=== PATIENT | female | born 1955 | race Caucasian/White ===

== ENCOUNTER → 2020-05-07 20:39 | Outpatient (REF) | payer MEDICARE, MEDICAID, OTHER, SELFPAY | LOC: HO.SL 20:39 | PROVIDERS: Visit Provider Psychiatry & Neurology Neurology | DX: G47.33 Obstructive sleep apnea (adult) (pediatric) (principal); G25.81 Restless legs syndrome; R06.83 Snoring; R41.89 Other symptoms and signs involving cognitive functions and awareness; I63.9 Cerebral infarction, unspecified; M47.892 Other spondylosis, cervical region; Z99.89 Dependence on other enabling machines and devices | CPT/HCPCS: 85610; 95810 ==

== ENCOUNTER → 2020-05-28 08:52 | Outpatient (BNVA) | payer MEDICARE, MEDICAID, OTHER, SELFPAY | PROVIDERS: PCP Internal Medicine; Visit Provider Internal Medicine | DX: Z86.73 Personal history of transient ischemic attack (TIA), and cerebral infarction without residual deficits (principal); Z51.81 Encounter for therapeutic drug level monitoring; Z79.01 Long term (current) use of anticoagulants | CPT/HCPCS: 85610; 99211 ==

== ENCOUNTER → 2020-06-18 09:07 | Outpatient (BNVA) | payer MEDICARE, MEDICAID, OTHER, SELFPAY | PROVIDERS: PCP Internal Medicine; Visit Provider Internal Medicine | DX: Z86.73 Personal history of transient ischemic attack (TIA), and cerebral infarction without residual deficits (principal); Z51.81 Encounter for therapeutic drug level monitoring; Z79.01 Long term (current) use of anticoagulants | CPT/HCPCS: 85610; 99211 ==

== ENCOUNTER → 2020-07-02 10:49 | Outpatient (BNVA) | payer MEDICARE, MEDICAID, OTHER, SELFPAY | PROVIDERS: PCP Internal Medicine; Visit Provider Internal Medicine | DX: Z86.73 Personal history of transient ischemic attack (TIA), and cerebral infarction without residual deficits (principal); Z51.81 Encounter for therapeutic drug level monitoring; Z79.01 Long term (current) use of anticoagulants | CPT/HCPCS: 85610; 99211 ==

== ENCOUNTER 2020-07-21 07:20 | Outpatient (REF) | payer MEDICARE, MEDICAID, OTHER, SELFPAY | END 2020-07-21 07:21 | disposition home or self-care (01) | LOC: HO.LAB 07:20 | PROVIDERS: Visit Provider Internal Medicine | DX: Z20.822 Contact with and (suspected) exposure to COVID-19 (principal) | CPT/HCPCS: 36415; C9803; Q3014; U0003 ==

== ENCOUNTER → 2020-07-22 08:42 | Outpatient (BNVA) | payer MEDICARE, MEDICAID, OTHER, SELFPAY | PROVIDERS: PCP Internal Medicine; Visit Provider Internal Medicine | DX: Z86.73 Personal history of transient ischemic attack (TIA), and cerebral infarction without residual deficits (principal); Z51.81 Encounter for therapeutic drug level monitoring; Z79.01 Long term (current) use of anticoagulants | CPT/HCPCS: 85610; 99211 ==

== ENCOUNTER → 2020-07-30 08:41 | Outpatient (BNVA) | payer MEDICARE, MEDICAID, OTHER, SELFPAY | PROVIDERS: PCP Internal Medicine; Visit Provider Internal Medicine | DX: Z86.73 Personal history of transient ischemic attack (TIA), and cerebral infarction without residual deficits (principal); Z79.01 Long term (current) use of anticoagulants; Z51.81 Encounter for therapeutic drug level monitoring | CPT/HCPCS: 85610; 99211 ==

== ENCOUNTER → 2020-08-20 08:39 | Outpatient (BNVA) | payer MEDICARE, MEDICAID, OTHER, SELFPAY | PROVIDERS: PCP Internal Medicine; Visit Provider Internal Medicine | DX: Z86.73 Personal history of transient ischemic attack (TIA), and cerebral infarction without residual deficits (principal); Z51.81 Encounter for therapeutic drug level monitoring; Z79.01 Long term (current) use of anticoagulants | CPT/HCPCS: 85610; 99211 ==

== ENCOUNTER → 2020-09-16 08:44 | Outpatient (BNVA) | payer MEDICARE, MEDICAID, SELFPAY | PROVIDERS: PCP Internal Medicine; Visit Provider Internal Medicine | DX: Z86.73 Personal history of transient ischemic attack (TIA), and cerebral infarction without residual deficits (principal); Z51.81 Encounter for therapeutic drug level monitoring; Z79.01 Long term (current) use of anticoagulants | CPT/HCPCS: 85610; 99211 ==

== ENCOUNTER → 2020-10-14 08:55 | Outpatient (BNVA) | payer MEDICARE, MEDICAID, SELFPAY | PROVIDERS: PCP Internal Medicine; Visit Provider Internal Medicine | DX: Z86.73 Personal history of transient ischemic attack (TIA), and cerebral infarction without residual deficits (principal); Z51.81 Encounter for therapeutic drug level monitoring; Z79.01 Long term (current) use of anticoagulants | CPT/HCPCS: 85610; 99211 ==

== ENCOUNTER → 2020-11-11 08:50 | Outpatient (BNVA) | payer MEDICARE, MEDICAID, SELFPAY | PROVIDERS: PCP Internal Medicine; Visit Provider Internal Medicine | DX: Z86.73 Personal history of transient ischemic attack (TIA), and cerebral infarction without residual deficits (principal); Z51.81 Encounter for therapeutic drug level monitoring; Z79.01 Long term (current) use of anticoagulants | CPT/HCPCS: 85610; 99211 ==

== ENCOUNTER 2020-11-13 08:49 | Outpatient (REF) | payer MEDICARE, MEDICAID, OTHER, SELFPAY ==
--- NOTE | ~2020-11-13 | MM_ITS ---
EXAMINATION: MM SCREENING DIGITAL BREAST TOMOSYNTHESIS, BILATERAL CLINICAL INFORMATION: Screening. Asymptomatic. The lifetime risk of breast cancer based on the Tyrer-Cuzick Model is 11%. COMPARISON: Mammography: 10/05/2019, 08/17/2018, 07/15/2017 TECHNIQUE: Digital breast tomosynthesis is performed in both the craniocaudal and mediolateral oblique views along with computer-aided detection (CAD). Synthesized 2D images are generated from the tomosynthesis. FINDINGS: There are scattered areas of fibroglandular density (ACR BI-RADS breast composition Category b). There are no significant masses, abnormal calcifications, or other abnormalities. There is a cardiac loop recorder monitoring device overlying the medial left breast. Intramammary node again seen mid outer right breast. The bilateral axilla and skin contours are unremarkable. MM/MM tomosynthesis screening BI IMPRESSION: No mammographic evidence of malignancy. ASSESSMENT: BI-RADS 2: Benign RECOMMENDATION: Routine annual mammography screening. This patient's information was entered into a reminder system with a target due date for their next mammogram.
== END 2020-11-13 08:50 | disposition home or self-care (01) ==
LOC: HO.MAMMO 08:49
PROVIDERS: Visit Provider Internal Medicine
DX: Z12.31 Encounter for screening mammogram for malignant neoplasm of breast (principal)
CPT/HCPCS: 77063; 77067

== ENCOUNTER → 2020-12-10 09:29 | Outpatient (BNVA) | payer MEDICARE, MEDICAID, OTHER, SELFPAY | PROVIDERS: PCP Internal Medicine; Visit Provider Internal Medicine | DX: Z86.73 Personal history of transient ischemic attack (TIA), and cerebral infarction without residual deficits (principal); Z51.81 Encounter for therapeutic drug level monitoring; Z79.01 Long term (current) use of anticoagulants | CPT/HCPCS: 85610; 99211 ==

== ENCOUNTER → 2020-12-16 13:34 | Outpatient (BNVA) | payer MEDICARE, MEDICAID, OTHER, SELFPAY | PROVIDERS: PCP Internal Medicine; Visit Provider Internal Medicine Cardiovascular Disease | DX: Z45.09 Encounter for adjustment and management of other cardiac device (principal); R00.0 Tachycardia, unspecified; I10 Essential (primary) hypertension | CPT/HCPCS: 93005; 99212 ==

== ENCOUNTER → 2020-12-24 09:08 | Outpatient (BNVA) | payer MEDICARE, MEDICAID, OTHER, SELFPAY | PROVIDERS: PCP Internal Medicine; Visit Provider Internal Medicine | DX: Z86.73 Personal history of transient ischemic attack (TIA), and cerebral infarction without residual deficits (principal); Z51.81 Encounter for therapeutic drug level monitoring; Z79.01 Long term (current) use of anticoagulants | CPT/HCPCS: 85610; 99211 ==

== ENCOUNTER → 2021-01-01 09:05 | Outpatient (BNVA) | payer MEDICARE, OTHER, SELFPAY | PROVIDERS: PCP Internal Medicine; Visit Provider Internal Medicine | DX: Z86.73 Personal history of transient ischemic attack (TIA), and cerebral infarction without residual deficits (principal); Z51.81 Encounter for therapeutic drug level monitoring; Z79.01 Long term (current) use of anticoagulants | CPT/HCPCS: 85610; 99211 ==

== ENCOUNTER → 2021-01-08 09:13 | Outpatient (BNVA) | payer MEDICARE, OTHER, SELFPAY | PROVIDERS: PCP Internal Medicine; Visit Provider Internal Medicine | DX: Z86.73 Personal history of transient ischemic attack (TIA), and cerebral infarction without residual deficits (principal); Z51.81 Encounter for therapeutic drug level monitoring; Z79.01 Long term (current) use of anticoagulants | CPT/HCPCS: 85610; 99211 ==

== ENCOUNTER → 2021-01-14 08:54 | Outpatient (BNVA) | payer MEDICARE, OTHER, SELFPAY | PROVIDERS: PCP Internal Medicine; Visit Provider Internal Medicine | DX: Z86.73 Personal history of transient ischemic attack (TIA), and cerebral infarction without residual deficits (principal); Z51.81 Encounter for therapeutic drug level monitoring; Z79.01 Long term (current) use of anticoagulants | CPT/HCPCS: 85610; 99211 ==

== ENCOUNTER → 2021-01-15 13:32 | Outpatient (BNVA) | payer MEDICARE, OTHER, SELFPAY | PROVIDERS: PCP Internal Medicine; Visit Provider Internal Medicine Cardiovascular Disease | DX: Z45.09 Encounter for adjustment and management of other cardiac device (principal); R00.0 Tachycardia, unspecified; Q21.1 Atrial septal defect; I10 Essential (primary) hypertension | CPT/HCPCS: 99212 ==

== ENCOUNTER → 2021-01-22 09:04 | Outpatient (BNVA) | payer MEDICARE, OTHER, SELFPAY | PROVIDERS: PCP Internal Medicine; Visit Provider Internal Medicine | DX: Z86.73 Personal history of transient ischemic attack (TIA), and cerebral infarction without residual deficits (principal); Z51.81 Encounter for therapeutic drug level monitoring; Z79.01 Long term (current) use of anticoagulants | CPT/HCPCS: 85610; 99211 ==

== ENCOUNTER → 2021-01-29 08:59 | Outpatient (BNVA) | payer MEDICARE, OTHER, SELFPAY | PROVIDERS: PCP Internal Medicine; Visit Provider Internal Medicine | DX: Z86.73 Personal history of transient ischemic attack (TIA), and cerebral infarction without residual deficits (principal); Z51.81 Encounter for therapeutic drug level monitoring; Z79.01 Long term (current) use of anticoagulants | CPT/HCPCS: 85610; 99211 ==

== ENCOUNTER → 2021-02-12 09:04 | Outpatient (BNVA) | payer MEDICARE, OTHER, SELFPAY | PROVIDERS: PCP Internal Medicine; Visit Provider Internal Medicine | DX: Z86.73 Personal history of transient ischemic attack (TIA), and cerebral infarction without residual deficits (principal); Z51.81 Encounter for therapeutic drug level monitoring; Z79.01 Long term (current) use of anticoagulants | CPT/HCPCS: 85610; 99212 ==

== ENCOUNTER → 2021-02-19 08:54 | Outpatient (BNVA) | payer MEDICARE, OTHER, SELFPAY | PROVIDERS: PCP Internal Medicine; Visit Provider Internal Medicine | DX: Z86.73 Personal history of transient ischemic attack (TIA), and cerebral infarction without residual deficits (principal); Z51.81 Encounter for therapeutic drug level monitoring; Z79.01 Long term (current) use of anticoagulants | CPT/HCPCS: 85610; 99211 ==

== ENCOUNTER → 2021-02-26 09:27 | Outpatient (BNVA) | payer MEDICARE, OTHER, SELFPAY | PROVIDERS: PCP Internal Medicine; Visit Provider Internal Medicine | DX: Z86.73 Personal history of transient ischemic attack (TIA), and cerebral infarction without residual deficits (principal); Z51.81 Encounter for therapeutic drug level monitoring; Z79.01 Long term (current) use of anticoagulants | CPT/HCPCS: 85610; 99211 ==

== ENCOUNTER → 2021-03-09 08:53 | Outpatient (REF) | payer MEDICARE, OTHER, SELFPAY | LOC: HO.SL 08:53 | PROVIDERS: PCP Internal Medicine; Visit Provider Nurse Practitioner Family | DX: G47.10 Hypersomnia, unspecified (principal); I45.5 Other specified heart block | CPT/HCPCS: 95806 ==

== ENCOUNTER → 2021-03-10 09:18 | Outpatient (BNVA) | payer MEDICARE, OTHER, SELFPAY | PROVIDERS: PCP Internal Medicine; Visit Provider Internal Medicine | DX: Z86.73 Personal history of transient ischemic attack (TIA), and cerebral infarction without residual deficits (principal); Z51.81 Encounter for therapeutic drug level monitoring; Z79.01 Long term (current) use of anticoagulants | CPT/HCPCS: 85610; 99211 ==

== ENCOUNTER → 2021-03-24 09:02 | Outpatient (BNVA) | payer MEDICARE, OTHER, SELFPAY | PROVIDERS: PCP Internal Medicine; Visit Provider Internal Medicine | DX: Z86.73 Personal history of transient ischemic attack (TIA), and cerebral infarction without residual deficits (principal); Z51.81 Encounter for therapeutic drug level monitoring; Z79.01 Long term (current) use of anticoagulants | CPT/HCPCS: 85610; 99211 ==

== ENCOUNTER → 2021-03-31 09:36 | Outpatient (BNVA) | payer MEDICARE, OTHER, SELFPAY | PROVIDERS: PCP Internal Medicine; Visit Provider Internal Medicine | DX: Z86.73 Personal history of transient ischemic attack (TIA), and cerebral infarction without residual deficits (principal); Z51.81 Encounter for therapeutic drug level monitoring; Z79.01 Long term (current) use of anticoagulants | CPT/HCPCS: 85610; 99211 ==

== ENCOUNTER → 2021-04-14 09:07 | Outpatient (BNVA) | payer MEDICARE, OTHER, SELFPAY | PROVIDERS: PCP Internal Medicine; Visit Provider Internal Medicine | DX: Z86.73 Personal history of transient ischemic attack (TIA), and cerebral infarction without residual deficits (principal); Z51.81 Encounter for therapeutic drug level monitoring; Z79.01 Long term (current) use of anticoagulants | CPT/HCPCS: 85610; 99211 ==

== ENCOUNTER → 2021-04-15 09:01 | Outpatient (BNVA) | payer MEDICARE, OTHER, SELFPAY | PROVIDERS: PCP Internal Medicine; Referring Provider Internal Medicine; Visit Provider Internal Medicine Cardiovascular Disease | DX: Z45.09 Encounter for adjustment and management of other cardiac device (principal); I45.5 Other specified heart block; Q21.1 Atrial septal defect; R00.0 Tachycardia, unspecified | CPT/HCPCS: 93005; 99212 ==

== ENCOUNTER → 2021-04-21 13:23 | Outpatient (BNVA) | payer MEDICARE, OTHER, SELFPAY | PROVIDERS: PCP Internal Medicine; Visit Provider Internal Medicine | DX: Z86.73 Personal history of transient ischemic attack (TIA), and cerebral infarction without residual deficits (principal); Z51.81 Encounter for therapeutic drug level monitoring; Z79.01 Long term (current) use of anticoagulants | CPT/HCPCS: 85610; 99211 ==

== ENCOUNTER 2021-04-29 08:42 | Outpatient (REF) | payer MEDICARE, OTHER, SELFPAY ==
--- NOTE | ~2021-04-29 | XR_ITS ---
EXAMINATION: XR CHEST CLINICAL INFORMATION: Cough. COMPARISON: Most recent chest radiograph dated 11/19/2019. TECHNIQUE: 2 views of the chest were obtained. FINDINGS: No focal airspace consolidation. No pleural effusion or pneumothorax. Stable cardiomediastinal silhouette. Loop recorder in the left chest wall. Right upper quadrant surgical clips. XR/XR chest 2V IMPRESSION: No acute cardiopulmonary findings.
== END 2021-04-29 08:43 | disposition home or self-care (01) ==
LOC: HO.XRAY 08:42
PROVIDERS: PCP Internal Medicine; Visit Provider Internal Medicine
DX: R61 Generalized hyperhidrosis (principal); R05.9 Cough, unspecified
CPT/HCPCS: 71046

== ENCOUNTER → 2021-05-01 09:40 | Outpatient (BNVA) | payer MEDICARE, OTHER, SELFPAY | PROVIDERS: PCP Internal Medicine; Visit Provider Internal Medicine | DX: Z86.73 Personal history of transient ischemic attack (TIA), and cerebral infarction without residual deficits (principal); Z51.81 Encounter for therapeutic drug level monitoring; Z79.01 Long term (current) use of anticoagulants | CPT/HCPCS: 85610; 99211 ==

== ENCOUNTER → 2021-05-14 09:12 | Outpatient (BNVA) | payer MEDICARE, OTHER, SELFPAY | PROVIDERS: PCP Internal Medicine; Visit Provider Internal Medicine | DX: Z86.73 Personal history of transient ischemic attack (TIA), and cerebral infarction without residual deficits (principal); Z51.81 Encounter for therapeutic drug level monitoring; Z79.01 Long term (current) use of anticoagulants | CPT/HCPCS: 85610; 99211 ==

== ENCOUNTER → 2021-05-20 08:29 | Outpatient (BNVA) | payer MEDICARE, OTHER, SELFPAY | PROVIDERS: PCP Internal Medicine; Visit Provider Internal Medicine | DX: Z86.73 Personal history of transient ischemic attack (TIA), and cerebral infarction without residual deficits (principal); Z51.81 Encounter for therapeutic drug level monitoring; Z79.01 Long term (current) use of anticoagulants | CPT/HCPCS: 85610; 99211 ==

== ENCOUNTER → 2021-05-25 08:24 | Outpatient (BNVA) | payer MEDICARE, OTHER, SELFPAY | PROVIDERS: PCP Internal Medicine; Visit Provider Internal Medicine | DX: Z86.73 Personal history of transient ischemic attack (TIA), and cerebral infarction without residual deficits (principal); Z51.81 Encounter for therapeutic drug level monitoring; Z79.01 Long term (current) use of anticoagulants | CPT/HCPCS: 85610; 99211 ==

== ENCOUNTER → 2021-06-15 13:54 | Outpatient (BNVA) | payer MEDICARE, OTHER, SELFPAY | PROVIDERS: PCP Internal Medicine; Visit Provider Internal Medicine | DX: Z86.73 Personal history of transient ischemic attack (TIA), and cerebral infarction without residual deficits (principal); Z51.81 Encounter for therapeutic drug level monitoring; Z79.01 Long term (current) use of anticoagulants | CPT/HCPCS: 85610; 99211 ==

== ENCOUNTER → 2021-06-26 14:18 | Outpatient (BNVA) | payer MEDICARE, OTHER, SELFPAY | PROVIDERS: PCP Internal Medicine; Referring Provider Internal Medicine; Visit Provider Nurse Practitioner Family | DX: I45.5 Other specified heart block (principal); I10 Essential (primary) hypertension; R42 Dizziness and giddiness; Z79.01 Long term (current) use of anticoagulants | CPT/HCPCS: 99212 ==

== ENCOUNTER → 2021-06-29 09:03 | Outpatient (BNVA) | payer MEDICARE, OTHER, SELFPAY | PROVIDERS: PCP Internal Medicine; Visit Provider Internal Medicine | DX: Z86.73 Personal history of transient ischemic attack (TIA), and cerebral infarction without residual deficits (principal); Z51.81 Encounter for therapeutic drug level monitoring; Z79.01 Long term (current) use of anticoagulants | CPT/HCPCS: 85610; 99211 ==

== ENCOUNTER → 2021-07-08 08:53 | Outpatient (BNVA) | payer MEDICARE, OTHER, SELFPAY | PROVIDERS: PCP Internal Medicine; Visit Provider Internal Medicine | DX: Z86.73 Personal history of transient ischemic attack (TIA), and cerebral infarction without residual deficits (principal); Z51.81 Encounter for therapeutic drug level monitoring; Z79.01 Long term (current) use of anticoagulants | CPT/HCPCS: 85610; 99211 ==

== ENCOUNTER → 2021-07-21 12:24 | Outpatient (BNVA) | payer MEDICARE, OTHER, SELFPAY | PROVIDERS: PCP Internal Medicine; Referring Provider Internal Medicine; Visit Provider Internal Medicine Cardiovascular Disease | DX: I45.5 Other specified heart block (principal); Q21.1 Atrial septal defect; R00.0 Tachycardia, unspecified | CPT/HCPCS: 99212 ==

== ENCOUNTER → 2021-07-22 09:08 | Outpatient (BNVA) | payer MEDICARE, OTHER, SELFPAY | PROVIDERS: PCP Internal Medicine; Visit Provider Internal Medicine | DX: Z86.73 Personal history of transient ischemic attack (TIA), and cerebral infarction without residual deficits (principal); Z51.81 Encounter for therapeutic drug level monitoring; Z79.01 Long term (current) use of anticoagulants | CPT/HCPCS: 85610; 99211 ==

== ENCOUNTER 2021-07-23 05:57 | Outpatient (REF) | payer MEDICARE, OTHER, SELFPAY ==
[2021-07-23 06:28] LABS: MANUAL DIFF FLAG NO
[2021-07-23 07:12] LABS: Basophils Percent Auto 0.4 % (0-2); Eosinophils Absolute Auto 0.1 X10*3/uL (0.0-0.4); Eosinophils Percent Auto 1.6 % (0-4); Hematocrit 39.9 % (37.0-47.0); Hemoglobin 13.2 g/dl (12.0-16.0); Imm Gran Abs Auto 0.02 X10*3/uL (0.00-0.03); Imm Gran Pct Auto 0.2 % (0.0-0.4); Lymphocytes Absolute Auto 3.4 X10*3/uL (1.2-4.9); Lymphocytes Percent Auto 42.7 % (20-40); Mean Corpuscular HGB Conc 33.1 g/dl (31.0-35.0); Mean Corpuscular Volume 93.7 fL (80.0-98.0); Mean Platelet Volume 9.2 fL (9.4-12.3); Monocytes Absolute Auto 0.7 X10*3/uL (0.1-1.2); Monocytes Percent Auto 9.2 % (2-11); Neutrophils Absolute Auto 3.7 x10*3/uL (2.0-8.3); Neutrophils Percent Auto 45.9 % (45-73); Platelet Count 344 X10*3/uL (160-400); Red Blood Count 4.26 X10*6/uL (4.20-5.50); Red Cell Distribution Width 13.8 % (11.0-16.0)
[2021-07-23 07:28] LABS: Alanine Aminotransferase 14 U/L (0-31); Albumin Level 4.2 g/dL (3.5-5.0); Alkaline Phosphatase 80 U/L (39-117); Anion Gap 13 (12-20); Aspartate Amino Transferase 13 U/L (5-31); Bilirubin Total 0.3 mg/dL (0.0-1.0); Blood Urea Nitrogen 15 mg/dL (9-16); Calcium 10.1 mg/dL (8.4-10.2); Carbon Dioxide 27 mmol/L (22-29); Chloride 106 mmol/L (96-108); Cholesterol 188 mg/dL; Estimated Glomerular Filt Rate > 60; Glucose Fasting 169 mg/dL (60-99); HDL Cholesterol 77 mg/dL; LDL Cholesterol Calculated 89 mg/dl; Potassium 4.9 mmol/L (3.3-5.1); Sodium 141 mmol/L (135-145); Triglycerides 111 mg/dL
== END 2021-07-23 05:58 | disposition home or self-care (01) ==
LOC: HO.LAB 05:57
PROVIDERS: PCP Internal Medicine; Visit Provider Nurse Practitioner Family
DX: I45.5 Other specified heart block (principal); E78.5 Hyperlipidemia, unspecified
CPT/HCPCS: 36415; 80053; 80061; 85025

== ENCOUNTER → 2021-07-27 13:04 | Outpatient (BNVA) | payer MEDICARE, OTHER, SELFPAY | PROVIDERS: PCP Internal Medicine; Visit Provider Internal Medicine | DX: Z86.73 Personal history of transient ischemic attack (TIA), and cerebral infarction without residual deficits (principal); Z51.81 Encounter for therapeutic drug level monitoring; Z79.01 Long term (current) use of anticoagulants | CPT/HCPCS: 85610; 99212 ==

== ENCOUNTER 2021-08-05 15:38 | Observation (INO) | payer MEDICARE, OTHER, SELFPAY ==
--- NOTE | 2021-08-04 11:46 | P.CONAN_ITS ---
Documented by User: Bambi Diaz NP 08/04/21 11:51 HPI - Anesthesia Eval Consult details Narrative: 66yo F for Pacemaker Insertion, Dual,excision of a loop recorder Coumadin for h/o CVA (with PFO) - to bridge with lovenox PMFSH Active Problems Active Problems: All Active Problems (Updated 06/29/21 @ 16:58 by Jany Katz NP-C) Dizziness (Acute) Sinus pause (Acute) Hypersomnia (Acute) Sinus tachycardia (Acute) Hyperlipidemia (Acute) PFO (patent foramen ovale) (Acute) HTN (hypertension) (Acute) Current use of anticoagulant therapy (Acute) Past Medical History Medical History (Updated 08/05/21 @ 13:37 by Jossy Gupta MD) COPD (chronic obstructive pulmonary disease) CVA (cerebral vascular accident) HTN (hypertension) Hyperlipidemia PFO (patent foramen ovale) Family History Family History Mother Stroke Multiple sclerosis Diabetes Father CAD (coronary artery disease) Surgical History Surgical History H/O unilateral oophorectomy History of bladder surgery History of cystoscopy Hx of cholecystectomy Social History Social History Alcohol intake: never Patient Tobacco Use Status: Current everyday Tobacco user Tobacco use type: Smokeless Tobacco Cigarettes Per Day: 1 Years Smoked: 40 +/- Smoked in Last 30 Days: Yes e-Cigarette/Vaping Use: Currently Using Use of substances other than those prescribed or required for medical reasons: No Have you been hit, kicked, punched, or otherwise hurt by someone within the past year? If so, by whom?: No Are you DNR?: No Advance Directives: No Advance Directives Information Provided: Yes Recently lost weight without trying: Unsure Eating poorly because of decreased appetite: No Patient : No Meds Allergies Allergy/AdvReac Type Severity Reaction Status Date / Time vancomycin [VANCOMYCIN] Allergy Intermediate ITCHING/ELOY Verified 07/22/21 09:12 H From REGLAN Allergy Intermediate PANIC Uncoded 07/21/21 12:37 ATTACK Home Medications Medication Instructions Recorded Confirmed Last Taken Type albuterol sulfate 90 mcg/actuation INHALATION 07/02/20 07/27/21 Unknown History aerosol inhaler atorvastatin 40 mg tablet 40 mg PO DAILY 07/21/20 07/27/21 Unknown History magnesium oxide 400 mg (241.3 mg 400 mg PO DAILY 07/21/20 07/27/21 Unknown History magnesium) tablet pantoprazole 40 mg tablet,delayed 40 mg PO DAILY 07/21/20 07/27/21 Unknown History release pramipexole 1 mg tablet 100f2 mg PO BEDTIME 07/21/20 07/27/21 Unknown History aspirin 81 mg tablet,delayed 81 mg PO DAILY 12/16/20 07/27/21 08/04/21 History release (Adult Low Dose Aspirin) cholecalciferol (vitamin D3) 25 25 mcg PO DAILY 12/16/20 07/27/21 Unknown History mcg (1,000 unit) capsule albuterol sulfate 2.5 mg INHALATION Q8H PRN 01/14/21 07/27/21 Unknown History blood sugar diagnostic #10 ea 01/14/21 07/27/21 Unknown History lisinopril 2.5 mg tablet 2.5 mg PO DAILY 04/15/21 07/27/21 Unknown History oxcarbazepine 300 mg tablet 300 mg PO BID 05/20/21 07/27/21 Unknown History fluticasone furoate 200 1 inh INHALATION DAILY ea 07/21/21 07/27/21 Unknown History mcg-vilanterol 25 mcg/dose inhalation powder hydrocodone 5 mg-acetaminophen 325 tab PO PRN 07/21/21 07/27/21 Unknown History mg tablet [id number] tablet tab PO DAILY tab 07/21/21 07/27/21 Unknown History metformin 500 mg tablet,extended 1,000 mg PO BID tab 07/21/21 07/27/21 Unknown History release 24 hr roflumilast 500 mcg tablet 500 mcg PO DAILY 07/21/21 07/27/21 Unknown History (Daliresp) umeclidinium 62.5 mcg/actuation 1 inh INHALATION DAILY ea 07/21/21 07/27/21 Unknown History blister powder for inhalation Exam Exam Date and Time: August 04, 2021 1146 Pertinent Lab Results Pertinent Lab Results: Laboratory Tests 07/23/21 07/23/21 06:27 06:27 WBC 8.0 Hgb 13.2 Hct 39.9 Plt Count 344 Sodium 141 Potassium 4.9 Chloride 106 Carbon Dioxide 27 BUN 15 Creatinine 0.79 Narrative Narrative: EKG 07/2021 NSR @ 92 Cardiac Device Check 06/2021 Details: Remote implantable loop recorder report generated 06/30/2021.? In the last month patient has 1 episode of pause, has been seen in the office and is planned to undergo pacemaker placement.? Overall otherwise present the strip shows sinus rhythm.? Battery life is excellent Assessment and Plan Assessment Anesthesia Assessment: Chart Reviewed Documented by User: Jossy Gupta MD 08/05/21 13:39 PMFSH Active Problems Active Problems: All Active Problems (Updated 06/29/21 @ 16:58 by Jany Katz, TREATING AND PUMPING SUPERVISOR-C) Dizziness (Acute) Sinus pause (Acute) Hypersomnia (Acute) Sinus tachycardia (Acute) Hyperlipidemia (Acute) PFO (patent foramen ovale) (Acute) HTN (hypertension) (Acute) Current use of anticoagulant therapy (Acute). Lovenox bridge. Last dose 08/04/21 am Past Medical History Medical History (Updated 08/05/21 @ 13:37 by Jossy Gupta MD) COPD (chronic obstructive pulmonary disease) CVA (cerebral vascular accident) HTN (hypertension) Hyperlipidemia PFO (patent foramen ovale) Family History Family History Mother Stroke Multiple sclerosis Diabetes Father CAD (coronary artery disease) Pertinent family history: h Family history of problems with anesthesia: No Surgical History Surgical History H/O unilateral oophorectomy History of bladder surgery History of cystoscopy Hx of cholecystectomy History of Problems with Anesthesia: No Social History Social History Alcohol intake: never Patient Tobacco Use Status: Current everyday Tobacco user Tobacco use type: Smokeless Tobacco Cigarettes Per Day: 1 Years Smoked: 40 +/- Smoked in Last 30 Days: Yes e-Cigarette/Vaping Use: Currently Using Use of substances other than those prescribed or required for medical reasons: No Have you been hit, kicked, punched, or otherwise hurt by someone within the past year? If so, by whom?: No Are you DNR?: No Advance Directives: No Advance Directives Information Provided: Yes Recently lost weight without trying: Unsure Eating poorly because of decreased appetite: No Patient : No Meds Allergies Allergy/AdvReac Type Severity Reaction Status Date / Time vancomycin [VANCOMYCIN] Allergy Intermediate ITCHING/ELOY Verified 07/22/21 09:12 H From REGLAN Allergy Intermediate PANIC Uncoded 07/21/21 12:37 ATTACK Home Medications Medication Instructions Recorded Confirmed Last Taken Type albuterol sulfate 90 mcg/actuation INHALATION 07/02/20 07/27/21 Unknown History aerosol inhaler atorvastatin 40 mg tablet 40 mg PO DAILY 07/21/20 07/27/21 Unknown History magnesium oxide 400 mg (241.3 mg 400 mg PO DAILY 07/21/20 07/27/21 Unknown History magnesium) tablet pantoprazole 40 mg tablet,delayed 40 mg PO DAILY 07/21/20 07/27/21 Unknown History release pramipexole 1 mg tablet 100f2 mg PO BEDTIME 07/21/20 07/27/21 Unknown History aspirin 81 mg tablet,delayed 81 mg PO DAILY 12/16/20 07/27/21 08/04/21 History release (Adult Low Dose Aspirin) cholecalciferol (vitamin D3) 25 25 mcg PO DAILY 12/16/20 07/27/21 Unknown History mcg (1,000 unit) capsule albuterol sulfate 2.5 mg INHALATION Q8H PRN 01/14/21 07/27/21 Unknown History blood sugar diagnostic #10 ea 01/14/21 07/27/21 Unknown History lisinopril 2.5 mg tablet 2.5 mg PO DAILY 04/15/21 07/27/21 Unknown History oxcarbazepine 300 mg tablet 300 mg PO BID 05/20/21 07/27/21 Unknown History fluticasone furoate 200 1 inh INHALATION DAILY ea 07/21/21 07/27/21 Unknown History mcg-vilanterol 25 mcg/dose inhalation powder hydrocodone 5 mg-acetaminophen 325 tab PO PRN 07/21/21 07/27/21 Unknown History mg tablet [id number] tablet tab PO DAILY tab 07/21/21 07/27/21 Unknown History metformin 500 mg tablet,extended 1,000 mg PO BID tab 07/21/21 07/27/21 Unknown History release 24 hr roflumilast 500 mcg tablet 500 mcg PO DAILY 07/21/21 07/27/21 Unknown History (Daliresp) umeclidinium 62.5 mcg/actuation 1 inh INHALATION DAILY ea 07/21/21 07/27/21 Unknown History blister powder for inhalation Exam Height,Weight and Vital Signs: Height 5 ft Weight 59.421 kg Vital Signs Temp Pulse Resp BP Pulse Ox 08/05/21 12:42 99 22 H 08/05/21 12:23 97.4 F 102 H 20 143/47 H 97 Pertinent Lab Results Pertinent Lab Results: Laboratory Tests 07/23/21 07/23/21 06:27 06:27 WBC 8.0 Hgb 13.2 Hct 39.9 Plt Count 344 Sodium 141 Potassium 4.9 Chloride 106 Carbon Dioxide 27 BUN 15 Creatinine 0.79 Lab Results 08/05/21 08/05/21 08/05/21 Range/Units 12:12 12:17 12:34 PT 10.6 (9.9-13.0) SEC INR 0.9 (0.9-1.1) POC Glucose 126 H (60-115) mg/dL COVID-19 (MISTY) Negative (Negative) COVID-19 Clin Com See Note Airway Mallampati Class: II TM Dist: >3cm Neck ROM: Full Denture: Upper Heart: RRR Lungs: CTAB. No wheezing Assessment and Plan Assessment Anesthesia Assessment: Anesthesia Plan Discussed Final Anesthetic Review Family History of Problems with Anesthesia: No History of Problems with Anesthesia: No NPO: Yes ASA Class: III Final Preanesthetic Review: No Changes in Pt Med Stat, Meds/Allgs Chart Reviewed, Consent Obtained/Reviewed and Anes Risks/Benef Reviewed Patient Risk: Intermediate Procedure Risk: Intermediate Assessment/Block/Sedation in SS: Assess/Block/Sedation-SS Anesthetic Plan Anesthetic Plan: GA and MAC: Disposition: Standard PACU
[2021-08-05] VITALS (15 sets, daily range): BP systolic 102–155; BP diastolic 46–65; PULSE 72–102; RESP 14–22; TEMP 36.1–37.2; O2SAT 93–100; BMI 25.5
--- NOTE | ~2021-08-05 | XR_ITS ---
EXAMINATION: XR CHEST CLINICAL INFORMATION: Post pacemaker COMPARISON: Previous chest x-ray most recent April 2013 TECHNIQUE: Frontal view of the chest was obtained. FINDINGS: There is a new left subclavian dual chamber pacemaker with one lead projecting over the right atrium and one lead projecting over the right ventricle. The cardiac and mediastinal contours are stable. There is subsegmental atelectasis at the left lung base. The lungs are otherwise clear. There is no pleural effusion or pneumothorax. Loop recorder projecting over the left chest is no longer seen. There are degenerative changes of the spine. XR/XR chest 1V IMPRESSION: Satisfactory position of left subclavian dual chamber pacemaker. No pneumothorax.
--- NOTE | ~2021-08-05 | FL_ITS ---
EXAMINATION: XR FLUOROSCOPY WITH IMAGES CLINICAL INFORMATION: Pacemaker insertion. COMPARISON: Previous chest x-ray April 2013. TECHNIQUE: Fluoroscopy performed by Dr. Janiya Gomez Fluoroscopy time: 5.1 minutes DAP: 15 mGy-cm2 Images: 3 FINDINGS: Two initial images demonstrate a wire or catheter in the right atrium and IVC. Final image demonstrates a dual-chamber pacemaker with one lead projecting over the right atrium and one lead projecting over the right ventricle. There is a loop recorder that projects over the left chest. FL/FL guidance in OR IMPRESSION: Fluoroscopy guidance for pacemaker placement.
[2021-08-05 12:39] LABS: Glucose, Whole Blood 126 mg/dL (60-115)
[2021-08-05] MEDS: Lactated Ringers 1,000 ML 100 ML IVCONT (12:39)
[2021-08-05] MEDS: Albuterol Sulfate (0.083%) 2.5 MG/3 ML VIAL.NEB INHALE (12:40)
[2021-08-05 12:46] LABS: INTERNATIONAL NORM RATIO 0.9 (0.9-1.1); Prothrombin Time 10.6 SEC (9.9-13.0)
[2021-08-05 12:55] LABS: COVID-19 Test Negative (Negative); IDNOW Serial# 9DD0AD1C
--- NOTE | 2021-08-05 13:08 | MHC.SHP ---
Pre-Procedural Eval Section A Date of Service: 08/05/21 Section B Chief Complaint: heart block Allergies: Allergies Allergy/AdvReac Type Severity Reaction Status Date / Time vancomycin [VANCOMYCIN] Allergy Intermediate ITCHING/ELOY Verified 07/22/21 09:12 H From REGLAN Allergy Intermediate PANIC Uncoded 07/21/21 12:37 ATTACK Plan I have reviewed the history and physical and performed a pertinent physical examination on my patient. No changes have occurred unless specified. Plan is for DCPPM and removal of loop recorder.
--- NOTE | 2021-08-05 15:24 | P.OP_ITS ---
Operative Note Operative Note Date of Service: 08/05/21 Narrative: Preoperative diagnosis: Heart block Postoperative diagnosis: Same Operation: Placement of dual-chamber permanent pacemaker with fluoroscopic guidance and removal of loop recorder Surgeon: Janiya Gomez MD Specimens: None EBL: 5 cc Operative findings: The pacemaker placed was a Medtronic serial number [id number]. The atrial lead was a Medtronic serial number [id number]. The ventricular lead was a Medtronic serial number [id number]. Parameters in the right atrial lead sensing was 1.9 mV with an impedance of 475 Ohms and a threshold of 0.75 volts at 0.4 milliseconds. In the ventricular lead threshold was 1 volt at 0.4 milliseconds with an impedance of 969 Ohms and R-wave 14.6 mV. Patient tolerated procedure well. Operation in detail: The patient was brought to the operating room, placed s upine on the operating room table, anesthesia moderate of ices were placed, and the patient was gently sedated. A time-out was performed confirming the correct patient site and procedure. After injection of local anesthetic, a 3 cm incision was made in the left infraclavicular region and carried down to the pectoralis fascia with electrocautery. The patient was then placed in Trendelenburg and an 18 gauge needle was used to access subclavian vein on the 1st take. And a wire was placed into the right atrium under fluoroscopic guidance. A 2nd 18 gauge needle was then used to access the subclavian vein again on the 1st ache and a wire was placed under fluoroscopic guidance and parked in the right atrium. The patient was then taken out of Trendelenburg and a pocket was formed using blunt and electrocautery dissection. The 1st 6 [place] sheath was then placed over wire and the wire and dilator were removed. The ventricular lead was then placed through the sheath and parked in the right atrium and the peel-away sheath was removed. After several attempts using a curved stylet we were eventually able to access the right ventricle and the tip of the lead was positioned at the right ventricular apex. The endocardial screw was deployed and the lead was tested with excellent parameters above. This lead was then secured with silk sutures to the pectoralis fascia. The 2nd 6 [place] sheath was then placed over the 2nd wire and a wire dilator removed. The atrial lead was then placed and parked in the right atrium. AJ stylet was used to position this in the right atrial appendage. The endocardial screws deployed and the lead was tested with excellent parameters above. This lead was also secured with silk sutures to the pectoralis fascia. The pocket was then copiously irrigated with antibiotic solution. The leads were then placed in their appropriate receptacles and the pacemaker was tested again with excellent parameters. The generator and excess lead was then placed into the pocket. The wound was then closed with a deep running 3-0 Vicryl suture followed by running 3-0 Vicryl suture and Dermabond glue in the skin. After injection of local anesthetic a small stab incision was made directly over the loop recorder confirmed position of the loop recorder with fluoroscopy. With some dissection, we were able to pull the loop recorder out of its pocket without difficulty. This was closed with 4-0 Monocryl and Exofin glue. The patient was then brought back to the recovery room in stable condition.
[2021-08-05] MEDS: oxyCODONE HCl Immed Release 5 MG TABLET PO ×2 (17:38→22:58)
[2021-08-05] MEDS: Acetaminophen 325 MG TABLET 650 MG PO (17:40)
[2021-08-05 20:31] LABS: Glucose, Whole Blood 256 mg/dL (60-115)
[2021-08-05] MEDS: Heparin Sodium,Porcine 5,000 UNIT/ML VIAL 5000 UNIT SUBCUT (22:59)
[2021-08-05] MEDS: 0.9 % Sodium Chloride Flush 3 ML SYRINGE IVFLUSH (23:00)
[2021-08-06 03:42] VITALS: BP 102/53; PULSE 72; RESP 18; TEMP 36.2; O2SAT 97
[2021-08-06] MEDS: oxyCODONE HCl Immed Release 5 MG TABLET PO (06:00)
[2021-08-06 07:28] VITALS: BP 122/56; PULSE 61; RESP 20; TEMP 36.2; O2SAT 96
[2021-08-06 07:52] LABS: Glucose, Whole Blood 133 mg/dL (60-115)
[2021-08-06] MEDS: Heparin Sodium,Porcine 5,000 UNIT/ML VIAL 5000 UNIT SUBCUT (09:32)
[2021-08-06] MEDS: 0.9 % Sodium Chloride Flush 3 ML SYRINGE IVFLUSH (09:38)
[2021-08-06 11:03] LABS: Glucose, Whole Blood 171 mg/dL (60-115)
[2021-08-06 11:31] VITALS: BP 117/63; PULSE 74; RESP 20; TEMP 37.1
[2021-08-06] MEDS: Lactated Ringers 1,000 ML 100 ML IVCONT (12:03)
--- NOTE | 2021-08-06 12:05 | MHC.CM.PN ---
PATIENT IS FULLY INDEPENDENT NO DME OR [facility] SERVICES SHE LIVES WITH HER HCP/SISTER COPY OF DOCUMENT REQUESTED. PATIENT IS DISCHARGED HOME TODAY - SELF CARE HER SISTER WILL PROVIDE TRANSPORTATION. RN AWARE OF PLAN. VILLARREAL 08/06 IN CHART
[2021-08-06] MEDS: Insulin Lispro 100 UNIT/ML 3 ML VIAL SUBCUT (12:37)
--- NOTE | 2021-08-06 14:07 | HO.POSTANES ---
Post Anesthesia Evaluation Post Anesthesia Evaluation Vital Signs: Vital Signs Temp Pulse Resp BP Pulse Ox 08/06/21 11:31 98.7 F 74 20 117/63 08/06/21 07:28 97.1 F 61 20 122/56 L 96 08/06/21 03:42 97.1 F 72 18 102/53 L 97 Anesthesia: General Mental Status: Awake Pain Control: Satisfactory Nausea/Vomiting: None Hydration: Adequate Anesthesia-Related Issues: No Anes. Related Issues
== END 2021-08-06 13:50 | disposition home or self-care (01) ==
LOC: HO.SSSA 16:01 → HO.S3 19:25
PROVIDERS: Nurse Practitioner; Admitting Provider Surgery; PCP Internal Medicine; Visit Provider Surgery
PROC: (CPT 33208; principal; 2021-08-05 13:30)
DX: I44.2 Atrioventricular block, complete (principal); R00.0 Tachycardia, unspecified; T44.7X5A Adverse effect of beta-adrenoreceptor antagonists, initial encounter; Y92.9 Unspecified place or not applicable; Q21.1 Atrial septal defect; R42 Dizziness and giddiness; R00.2 Palpitations; D68.59 Other primary thrombophilia; I10 Essential (primary) hypertension; E78.5 Hyperlipidemia, unspecified; J44.9 Chronic obstructive pulmonary disease, unspecified; F17.210 Nicotine dependence, cigarettes, uncomplicated; U07.0 Vaping-related disorder; Z20.822 Contact with and (suspected) exposure to COVID-19; Z45.018 Encounter for adjustment and management of other part of cardiac pacemaker; Z86.73 Personal history of transient ischemic attack (TIA), and cerebral infarction without residual deficits; Z90.49 Acquired absence of other specified parts of digestive tract; Z90.721 Acquired absence of ovaries, unilateral; Z88.1 Allergy status to other antibiotic agents; Z88.8 Allergy status to other drugs, medicaments and biological substances; Z79.82 Long term (current) use of aspirin; Z79.84 Long term (current) use of oral hypoglycemic drugs; Z79.01 Long term (current) use of anticoagulants; Z79.899 Other long term (current) drug therapy
CPT/HCPCS: 33208; 33286; 36415; 71045; 82947; 85610; 87635; 94640; C1785; C1892; C1898; J0690; J1100; J2250; J2370; J2405; J3010

== ENCOUNTER → 2021-08-07 08:46 | Outpatient (BNVA) | payer MEDICARE, OTHER, SELFPAY | PROVIDERS: PCP Internal Medicine; Visit Provider Internal Medicine | DX: Z86.73 Personal history of transient ischemic attack (TIA), and cerebral infarction without residual deficits (principal); Z51.81 Encounter for therapeutic drug level monitoring; Z79.01 Long term (current) use of anticoagulants | CPT/HCPCS: 85610; 99211 ==

== ENCOUNTER → 2021-08-10 09:02 | Outpatient (BNVA) | payer MEDICARE, OTHER, SELFPAY | PROVIDERS: PCP Internal Medicine; Visit Provider Internal Medicine | DX: Z86.73 Personal history of transient ischemic attack (TIA), and cerebral infarction without residual deficits (principal); Z51.81 Encounter for therapeutic drug level monitoring; Z79.01 Long term (current) use of anticoagulants | CPT/HCPCS: 85610; 99211 ==

== ENCOUNTER → 2021-08-12 09:01 | Outpatient (BNVA) | payer MEDICARE, OTHER, SELFPAY | PROVIDERS: PCP Internal Medicine; Visit Provider Internal Medicine | DX: Z86.73 Personal history of transient ischemic attack (TIA), and cerebral infarction without residual deficits (principal); Z51.81 Encounter for therapeutic drug level monitoring; Z79.01 Long term (current) use of anticoagulants | CPT/HCPCS: 85610; 99211 ==

== ENCOUNTER → 2021-08-18 08:56 | Outpatient (BNVA) | payer MEDICARE, OTHER, SELFPAY | PROVIDERS: PCP Internal Medicine; Visit Provider Internal Medicine | DX: Z86.73 Personal history of transient ischemic attack (TIA), and cerebral infarction without residual deficits (principal); Z51.81 Encounter for therapeutic drug level monitoring; Z79.01 Long term (current) use of anticoagulants | CPT/HCPCS: 85610; 99211 ==

== ENCOUNTER → 2021-08-21 08:53 | Outpatient (BNVA) | payer MEDICARE, OTHER, SELFPAY | PROVIDERS: PCP Internal Medicine; Visit Provider Surgery | DX: Z48.812 Encounter for surgical aftercare following surgery on the circulatory system (principal); I45.5 Other specified heart block; F17.210 Nicotine dependence, cigarettes, uncomplicated; Z79.899 Other long term (current) drug therapy; Z79.84 Long term (current) use of oral hypoglycemic drugs; Z79.01 Long term (current) use of anticoagulants; Z95.0 Presence of cardiac pacemaker | CPT/HCPCS: 99212 ==

== ENCOUNTER → 2021-08-25 09:06 | Outpatient (BNVA) | payer MEDICARE, OTHER, SELFPAY | PROVIDERS: PCP Internal Medicine; Visit Provider Internal Medicine | DX: Z86.73 Personal history of transient ischemic attack (TIA), and cerebral infarction without residual deficits (principal); Z51.81 Encounter for therapeutic drug level monitoring; Z79.01 Long term (current) use of anticoagulants | CPT/HCPCS: 85610; 99211 ==

== ENCOUNTER → 2021-09-02 09:14 | Outpatient (BNVA) | payer MEDICARE, SELFPAY | PROVIDERS: PCP Internal Medicine; Visit Provider Internal Medicine | DX: Z86.73 Personal history of transient ischemic attack (TIA), and cerebral infarction without residual deficits (principal); Z51.81 Encounter for therapeutic drug level monitoring; Z79.01 Long term (current) use of anticoagulants | CPT/HCPCS: 85610; 99211 ==

== ENCOUNTER → 2021-09-14 09:51 | Outpatient (BNVA) | payer MEDICARE, SELFPAY | PROVIDERS: PCP Internal Medicine; Visit Provider Internal Medicine | DX: Z86.73 Personal history of transient ischemic attack (TIA), and cerebral infarction without residual deficits (principal); Z51.81 Encounter for therapeutic drug level monitoring; Z79.01 Long term (current) use of anticoagulants | CPT/HCPCS: 85610; 99211 ==

== ENCOUNTER → 2021-09-15 10:01 | Outpatient (BNVA) | payer MEDICARE, MEDICAID, SELFPAY | PROVIDERS: PCP Internal Medicine; Referring Provider Internal Medicine; Visit Provider Internal Medicine Cardiovascular Disease | DX: Z45.018 Encounter for adjustment and management of other part of cardiac pacemaker (principal); R06.02 Shortness of breath; R42 Dizziness and giddiness; Z86.73 Personal history of transient ischemic attack (TIA), and cerebral infarction without residual deficits | CPT/HCPCS: 99212 ==

== ENCOUNTER → 2021-09-17 08:48 | Outpatient (BNVA) | payer MEDICARE, MEDICAID, SELFPAY | PROVIDERS: PCP Internal Medicine; Visit Provider Internal Medicine | DX: Z86.73 Personal history of transient ischemic attack (TIA), and cerebral infarction without residual deficits (principal); Z51.81 Encounter for therapeutic drug level monitoring; Z79.01 Long term (current) use of anticoagulants | CPT/HCPCS: 85610; 99211 ==

== ENCOUNTER → 2021-09-22 09:06 | Outpatient (BNVA) | payer MEDICARE, MEDICAID, SELFPAY | PROVIDERS: PCP Internal Medicine; Visit Provider Internal Medicine | DX: Z86.73 Personal history of transient ischemic attack (TIA), and cerebral infarction without residual deficits (principal); Z51.81 Encounter for therapeutic drug level monitoring; Z79.01 Long term (current) use of anticoagulants | CPT/HCPCS: 85610 ==

== ENCOUNTER → 2021-09-28 09:35 | Outpatient (BNVA) | payer MEDICARE, MEDICAID, SELFPAY | PROVIDERS: PCP Internal Medicine; Visit Provider Internal Medicine | DX: Z86.73 Personal history of transient ischemic attack (TIA), and cerebral infarction without residual deficits (principal); Z51.81 Encounter for therapeutic drug level monitoring; Z79.01 Long term (current) use of anticoagulants | CPT/HCPCS: 85610; 99211 ==

== ENCOUNTER → 2021-10-05 09:04 | Outpatient (BNVA) | payer MEDICARE, OTHER, SELFPAY | PROVIDERS: PCP Internal Medicine; Visit Provider Internal Medicine | DX: Z86.73 Personal history of transient ischemic attack (TIA), and cerebral infarction without residual deficits (principal); Z79.01 Long term (current) use of anticoagulants; Z51.81 Encounter for therapeutic drug level monitoring | CPT/HCPCS: 85610; 99211 ==

== ENCOUNTER → 2021-10-09 08:56 | Outpatient (BNVA) | payer MEDICARE, OTHER, SELFPAY | PROVIDERS: PCP Internal Medicine; Visit Provider Internal Medicine | DX: Z86.73 Personal history of transient ischemic attack (TIA), and cerebral infarction without residual deficits (principal); Z51.81 Encounter for therapeutic drug level monitoring; Z79.01 Long term (current) use of anticoagulants | CPT/HCPCS: 85610; 99211 ==

== ENCOUNTER → 2021-10-15 08:57 | Outpatient (BNVA) | payer MEDICARE, OTHER, SELFPAY | PROVIDERS: PCP Internal Medicine; Visit Provider Internal Medicine | DX: Z86.73 Personal history of transient ischemic attack (TIA), and cerebral infarction without residual deficits (principal); Z51.81 Encounter for therapeutic drug level monitoring; Z79.01 Long term (current) use of anticoagulants | CPT/HCPCS: 85610; 99211 ==

== ENCOUNTER → 2021-10-21 08:26 | Outpatient (BNVA) | payer MEDICARE, OTHER, SELFPAY | PROVIDERS: PCP Internal Medicine; Visit Provider Internal Medicine | DX: Z86.73 Personal history of transient ischemic attack (TIA), and cerebral infarction without residual deficits (principal); Z51.81 Encounter for therapeutic drug level monitoring; Z79.01 Long term (current) use of anticoagulants | CPT/HCPCS: 85610; 99211 ==

== ENCOUNTER → 2021-10-30 08:56 | Outpatient (BNVA) | payer MEDICARE, OTHER, SELFPAY | PROVIDERS: PCP Internal Medicine; Visit Provider Internal Medicine | DX: Z86.73 Personal history of transient ischemic attack (TIA), and cerebral infarction without residual deficits (principal); Z79.01 Long term (current) use of anticoagulants; Z51.81 Encounter for therapeutic drug level monitoring | CPT/HCPCS: 85610; 99211 ==

== ENCOUNTER → 2021-11-06 09:07 | Outpatient (BNVA) | payer MEDICARE, OTHER, SELFPAY | PROVIDERS: PCP Internal Medicine; Visit Provider Internal Medicine | DX: Z86.73 Personal history of transient ischemic attack (TIA), and cerebral infarction without residual deficits (principal); Z79.01 Long term (current) use of anticoagulants; Z51.81 Encounter for therapeutic drug level monitoring | CPT/HCPCS: 85610; 99211 ==

== ENCOUNTER → 2021-11-13 09:10 | Outpatient (BNVA) | payer MEDICARE, OTHER, SELFPAY | PROVIDERS: PCP Internal Medicine; Visit Provider Internal Medicine | DX: Z86.73 Personal history of transient ischemic attack (TIA), and cerebral infarction without residual deficits (principal); Z79.01 Long term (current) use of anticoagulants; Z51.81 Encounter for therapeutic drug level monitoring | CPT/HCPCS: 85610; 99211 ==

== ENCOUNTER 2021-11-14 09:49 | Outpatient (REF) | payer MEDICARE, OTHER, SELFPAY ==
--- NOTE | ~2021-11-14 | MM_ITS ---
EXAMINATION: MM SCREENING DIGITAL BREAST TOMOSYNTHESIS, BILATERAL CLINICAL INFORMATION: Screening. Asymptomatic. The lifetime risk of breast cancer based on the Tyrer-Cuzick Model is 7%. COMPARISON: Mammography: 11/13/2020, 08/20/2019, 08/17/2018, 07/15/2017, 06/18/2016, 04/30/2015 TECHNIQUE: Digital breast tomosynthesis is performed in both the craniocaudal and mediolateral oblique views along with computer-aided detection (CAD). Synthesized 2D images are generated from the tomosynthesis. Case discussed with the remote sensing technologist. FINDINGS: There are scattered areas of fibroglandular density (ACR BI-RADS breast composition Category b). Right CC view has a 0.7 cm asymmetric density posterior medial aspect consistent with a dermal lesion as noted by the remote sensing technologist. Neither breast shows a significant mass or architectural abnormality or abnormal calcifications. The left cardiac loop recorder is no longer demonstrated. There is a pacemaker generator overlying the posterior upper left axilla on MLO view. MM/MM tomosynthesis screening BI IMPRESSION: -No mammographic evidence of malignancy. -Dermal lesion overlying posteromedial right breast. ASSESSMENT: BI-RADS 2: Benign RECOMMENDATION: Routine annual mammography screening. This patient's information was entered into a reminder system with a target due date for their next mammogram.
== END 2021-11-14 09:50 | disposition home or self-care (01) ==
LOC: HO.MAMMO 09:49
PROVIDERS: Visit Provider Internal Medicine
DX: Z12.31 Encounter for screening mammogram for malignant neoplasm of breast (principal)
CPT/HCPCS: 77063; 77067

== ENCOUNTER → 2021-11-24 08:57 | Outpatient (BNVA) | payer MEDICARE, OTHER, SELFPAY | PROVIDERS: PCP Internal Medicine; Visit Provider Internal Medicine | DX: Z86.73 Personal history of transient ischemic attack (TIA), and cerebral infarction without residual deficits (principal); Z79.01 Long term (current) use of anticoagulants; Z51.81 Encounter for therapeutic drug level monitoring | CPT/HCPCS: 85610; 99211 ==

== ENCOUNTER → 2021-12-08 09:04 | Outpatient (BNVA) | payer MEDICARE, OTHER, SELFPAY | PROVIDERS: PCP Internal Medicine; Visit Provider Internal Medicine | DX: Z86.73 Personal history of transient ischemic attack (TIA), and cerebral infarction without residual deficits (principal); Z79.01 Long term (current) use of anticoagulants; Z51.81 Encounter for therapeutic drug level monitoring | CPT/HCPCS: 85610; 99211 ==

== ENCOUNTER → 2021-12-11 08:38 | Outpatient (BNVA) | payer MEDICARE, OTHER, SELFPAY | PROVIDERS: PCP Internal Medicine; Visit Provider Internal Medicine | DX: Z86.73 Personal history of transient ischemic attack (TIA), and cerebral infarction without residual deficits (principal); Z79.01 Long term (current) use of anticoagulants; Z51.81 Encounter for therapeutic drug level monitoring | CPT/HCPCS: 85610; 99211 ==

== ENCOUNTER → 2021-12-18 09:16 | Outpatient (BNVA) | payer MEDICARE, OTHER, SELFPAY | PROVIDERS: PCP Internal Medicine; Visit Provider Internal Medicine | DX: Z86.73 Personal history of transient ischemic attack (TIA), and cerebral infarction without residual deficits (principal); Z79.01 Long term (current) use of anticoagulants; Z51.81 Encounter for therapeutic drug level monitoring | CPT/HCPCS: 85610; 99211 ==

== ENCOUNTER → 2021-12-28 13:41 | Outpatient (BNVA) | payer MEDICARE, OTHER, SELFPAY | PROVIDERS: PCP Internal Medicine; Visit Provider Internal Medicine | DX: Z86.73 Personal history of transient ischemic attack (TIA), and cerebral infarction without residual deficits (principal); Z79.01 Long term (current) use of anticoagulants; Z51.81 Encounter for therapeutic drug level monitoring | CPT/HCPCS: 85610; 99211 ==

== ENCOUNTER → 2022-01-12 08:54 | Outpatient (BNVA) | payer MEDICARE, OTHER, SELFPAY | PROVIDERS: PCP Internal Medicine; Visit Provider Internal Medicine | DX: Z86.73 Personal history of transient ischemic attack (TIA), and cerebral infarction without residual deficits (principal); Z79.01 Long term (current) use of anticoagulants; Z51.81 Encounter for therapeutic drug level monitoring | CPT/HCPCS: 85610; 99211 ==

== ENCOUNTER 2022-01-13 10:20 | Outpatient (REF) | payer MEDICARE, OTHER, SELFPAY ==
--- NOTE | ~2022-01-13 | US_ITS ---
EXAMINATION: US ABDOMEN COMPLETE CLINICAL INFORMATION: Upper abdominal pain, left upper quadrant pain. COMPARISON: None TECHNIQUE: Real-time imaging of the abdominal viscera. FINDINGS: PANCREAS: Normal. ABDOMINAL AORTA: There is a small infrarenal abdominal aortic aneurysm measuring 2.6 x 2.4 cm in size which does not extend to the aortic bifurcation. Calcified plaque is present. No elevation of the peak systolic velocity was appreciated. INFERIOR VENA CAVA: Visualized portions are normal. LIVER: Normal. The liver is normal in size. The liver contour is normal. Parenchymal echogenicity is normal. No focal hepatic lesion. There is no intrahepatic biliary duct dilatation seen. GALLBLADDER: Surgically absent. COMMON BILE DUCT: Normal in caliber measuring 0.6 cm in diameter. RIGHT KIDNEY: Normal. No hydronephrosis. No renal calculi or focal parenchymal lesions. The kidney measures 11.4 cm in maximum dimension. LEFT KIDNEY: Normal. No hydronephrosis. No renal calculi or focal parenchymal lesions. The kidney measures 11.4 cm in maximum dimension. SPLEEN: Normal. The spleen measures 8.0 cm in maximum dimension. FREE FLUID: None. US/US abdomen complete IMPRESSION: Small infrarenal abdominal aortic aneurysm measuring 2.6 cm in AP dimension.
== END 2022-01-13 10:21 | disposition home or self-care (01) ==
LOC: HO.HMGCX 10:20
PROVIDERS: PCP Internal Medicine; Visit Provider Internal Medicine
DX: R10.10 Upper abdominal pain, unspecified (principal)
CPT/HCPCS: 76700

== ENCOUNTER 2022-01-24 17:23 | Emergency (ER) | payer MEDICARE, MEDICAID, OTHER, SELFPAY ==
--- NOTE | ~2022-01-24 | CT_ITS ---
EXAMINATION: CT ABDOMEN AND PELVIS WITH CONTRAST CLINICAL INFORMATION: Left-sided abdominal pain and fever COMPARISON: Previous abdominal ultrasound December 2021 TECHNIQUE: Multidetector volumetric images were obtained from the superior aspect of the liver through the pubic symphysis following administration 85 mL of Omnipaque 350 intravenous contrast. Sagittal and coronal reformatted images were obtained on the technologist's workstation. Oral contrast: Yes This CT examination was performed using dose optimization techniques as appropriate, variously including the following: *Automated exposure control *Adjustment of mA and/or kV according to patient size (this includes techniques or standardized protocols for targeted exams where dose is matched to indication/reason for exam; i.e. extremities or head) *Use of iterative reconstruction technique DLP: 486 mGy-cm FINDINGS: LUNG BASES: The visualized lung bases are unremarkable. LIVER, GALLBLADDER, AND BILIARY TREE: The liver is normal in size, shape, and attenuation. No focal hepatic lesion or biliary ductal dilatation is present. The gallbladder has been removed. PANCREAS: There are calcifications in the tail of the pancreas. Pancreas is otherwise unremarkable. No evidence of acute pancreatitis. SPLEEN: Unremarkable. ADRENAL GLANDS: Unremarkable. KIDNEYS AND URETERS: The kidneys are normal in size, shape, and attenuation. No hydronephrosis, hydroureter, or calculi seen. No perinephric stranding. BLADDER: Unremarkable. GASTROINTESTINAL TRACT: There is diverticulosis of the colon. No evidence of diverticulitis is seen. Is question of mild wall thickening/colitis of the left colon versus changes due to underdistention. The appendix is not seen. There is question of wall thickening of the stomach versus changes due to underdistention. ABDOMINAL WALL: No significant hernia is appreciated. LYMPH NODES: Normal. VASCULAR: There is evidence of atherosclerotic disease. There is mild dilatation of the abdominal aorta measuring 2. 2.5 cm transverse and AP dimension. PELVIC VISCERA: Unremarkable. OSSEOUS STRUCTURES: There are degenerative changes of the spine. CT/CT abdomen pelvis w con IMPRESSION: Question mild colitis of the left colon versus changes due to underdistention. Diverticulosis. No evidence of diverticulitis. Question wall thickening of the stomach versus changes due to underdistention. Atherosclerotic disease. Fleischner guidelines were followed.
--- NOTE | ~2022-01-24 | XR_ITS ---
EXAMINATION: XR chest 1V CLINICAL INFORMATION: Reason for Exam fever COMPARISON: Chest radiograph 08/05/2021 TECHNIQUE: One view of the chest FINDINGS: Clear lungs. No pneumothorax or pleural effusion. Normal cardiomediastinal silhouette. Chest wall dual lead cardiac pacemaker in place. XR/XR chest 1V Impression: * Clear lungs.
[2022-01-24 17:28] VITALS: BP 137/63; PULSE 114; RESP 16; TEMP 37.7; O2SAT 93; BMI 24.7
[2022-01-24 17:52] LABS: MANUAL DIFF FLAG NO
[2022-01-24 17:59] LABS: Appearance Urine HAZY; Color Urine DK YELLOW; Glucose Urine UA NEG (NEG); Leukocyte Esterase Urine NEG (NEG); Nitrite Urine NEG (NEG); PH 5.5 (5.0-8.0); Specific Gravity - Urine >= 1.030 (1.005-1.025); UACC Culture Trigger NO; Urine Blood 3+ (NEG); Urine Ketones 15 MG/DL (NEG); Urine Protein 2+ MG/DL (NEG-TRACE)
[2022-01-24 18:08] LABS: Basophils Percent Auto 0.4 % (0-2); Eosinophils Absolute Auto 0.2 X10*3/uL (0.0-0.4); Hemoglobin 13.5 g/dl (12.0-16.0); Imm Gran Abs Auto 0.03 X10*3/uL (0.00-0.03); Imm Gran Pct Auto 0.4 % (0.0-0.4); Lymphocytes Absolute Auto 1.6 X10*3/uL (1.2-4.9); Lymphocytes Percent Auto 21.7 % (20-40); Mean Corpuscular HGB Conc 34.6 g/dl (31.0-35.0); Mean Corpuscular Hemoglobin 30.8 pg (27.0-33.0); Mean Platelet Volume 8.9 fL (9.4-12.3); Monocytes Absolute Auto 0.8 X10*3/uL (0.1-1.2); Monocytes Percent Auto 11.3 % (2-11); Neutrophils Absolute Auto 4.7 x10*3/uL (2.0-8.3); Neutrophils Percent Auto 64.2 % (45-73); Platelet Count 216 X10*3/uL (160-400); Red Blood Count 4.38 X10*6/uL (4.20-5.50); Red Cell Distribution Width 13.3 % (11.0-16.0); White Blood Count 7.3 X10*3/uL (4.8-10.8)
[2022-01-24 18:10] LABS: Squamous Epithelial Cell Urine 3+ /LPF
[2022-01-24 18:11] LABS: WBC Urine 0-2 /HPF (0-4)
[2022-01-24 18:12] LABS: Amorphous Sediment Urine TRACE /LPF; Granular Casts Urine 0-2 /LPF
[2022-01-24 18:13] LABS: Mucus Urine TRACE /LPF
[2022-01-24 18:19] LABS: COVID-19 Test Negative (Negative); IDNOW Serial# 16C4AD1C
[2022-01-24 18:22] LABS: Alanine Aminotransferase 76 U/L (0-31); Albumin Level 4.2 g/dL (3.5-5.0); Alkaline Phosphatase 99 U/L (39-117); Anion Gap 15 (12-20); Aspartate Amino Transferase 75 U/L (5-31); Bilirubin Total 0.3 mg/dL (0.0-1.0); Blood Urea Nitrogen 15 mg/dL (9-16); Calcium 9.4 mg/dL (8.4-10.2); Carbon Dioxide 24 mmol/L (22-29); Chloride 99 mmol/L (96-108); Creatinine Clr Calc Pharmacy 53.5; Estimated Glomerular Filt Rate > 60; Glucose Random 180 mg/dL (60-115); Lipase 10 U/L (8-78); Sodium 134 mmol/L (135-145); Total Protein 7.2 g/dL (6.5-8.0)
--- NOTE | 2022-01-24 18:59 | ED_ITS ---
HPI - Fever General Chief Complaint: Fever Stated Complaint: Fever X 3 Days Time Seen by Provider: 01/24/22 17:37 Source: patient Mode of arrival: ambulatory Limitations: no limitations History of Present Illness HPI Narrative: 66 yo female with hx of PPM, CVA, PFO, HTN, HLD, MENDEL, Factor V on coumadin comes in with c/o fever since Tuesday with nonspecific L sided uppper and lower abdominal pain. No exposures, travel, insect bites. She is fully vaccinated. MD elicited complaint: fever and malaise Onset (ago): day(s) (2) Exacerbating factors: nothing Relieving factors: nothing Associated symptoms: abdominal pain Treatments prior to arrival fever: none Related Data Home Medications Medication Instructions Recorded Confirmed albuterol sulfate 90 mcg/actuation 2 puff inhalation Q4H PRN 07/02/20 01/12/22 aerosol inhaler Shortness Of Breath atorvastatin 40 mg tablet 40 mg PO DAILY 07/21/20 01/12/22 magnesium oxide 400 mg (241.3 mg 400 mg PO DAILY 07/21/20 01/12/22 magnesium) tablet pramipexole 1 mg tablet 0.5 mg PO BEDTIME PRN Restless 07/21/20 01/12/22 Leg(S) cholecalciferol (vitamin D3) 25 25 mcg PO DAILY 12/16/20 01/12/22 mcg (1,000 unit) capsule blood sugar diagnostic #10 ea 01/14/21 12/18/21 oxcarbazepine 300 mg tablet 300 mg PO BID 05/20/21 01/12/22 fluticasone furoate 200 1 inh inhalation DAILY 07/21/21 01/12/22 mcg-vilanterol 25 mcg/dose inhalation powder [id number] tablet 1 tab PO DAILY 07/21/21 01/12/22 metformin 500 mg tablet,extended 1,000 mg PO BIDWM 07/21/21 01/12/22 release 24 hr roflumilast 500 mcg tablet 500 mcg PO DAILY 07/21/21 01/12/22 (Daliresp) oxycodone 5 mg tablet 5 mg PO BEDTIME 08/18/21 01/12/22 lisinopril 5 mg tablet 2.5 mg PO DAILY 09/15/21 01/12/22 ondansetron HCl 4 mg tablet 4 mg PO Q8H PRN 10/15/21 01/12/22 pantoprazole 20 mg tablet,delayed 20 mg PO DAILY 10/21/21 01/12/22 release warfarin 2.5 mg tablet mg PO 12/11/21 01/12/22 ipratropium bromide 21 mcg (0.03 2 spray intranasal BID 01/12/22 01/12/22 %) nasal spray Previous Rx's Medication Instructions Recorded metoprolol succinate 25 mg 25 mg PO DAILY #90 tabs 01/04/22 tablet,extended release 24 hr amoxicillin 875 mg-potassium 1 tab PO BID #14 tabs 01/24/22 clavulanate 125 mg tablet ondansetron 4 mg disintegrating 4 mg PO Q8H PRN nausea and 01/24/22 tablet vomiting #20 tabs Allergies Allergy/AdvReac Type Severity Reaction Status Date / Time vancomycin [VANCOMYCIN] Allergy Intermediate ITCHING/ELOY Verified 01/24/22 17:33 H metoclopramide [From Reglan] AdvReac Intermediate Nausea and Verified 01/24/22 17:33 Vomiting Review of Systems Review of Systems: Constitutional : No Weight loss, pos Fever, No Chills, pos Fatigue, pos Malaise ENT/Mouth : No sore throat, No Rhinorrhea Eyes: No Eye Pain, No Swelling, No Redness Cardiovascular : No Chest Pain, No SOB, No Dyspnea on Exertion, No Orthopnea, No Edema, No Palpitations Respiratory : No Cough, No Sputum, No Wheezing Gastrointestinal : No Nausea, No Vomiting, No Diarrhea, No Constipation, pos abdominal Pain, No Hematochezia, No Melena Genitourinary : No Dysuria, No Urinary Frequency, No Hematuria, Musculoskeletal : No joint pain, No Myalgias, No Joint Swelling Skin : No Skin Lesions, No rash Neuro : No Weakness, No Numbness, No Dizziness, No Headache Psych : No Anxiety/Panic, No Depression Heme/Lymph: No Bruising, No Bleeding,No Lymphadenopathy Endocrine : No Polyuria, No Polydipsia All other systems reviewed and are negative [facility] Past Medical History Attestation statement: The following information was validated with the patient. Medical History COPD (chronic obstructive pulmonary disease) Current use of anticoagulant therapy (~2019) Factor 5 Leiden mutation, heterozygous History of colon polyps (~2009) History of CVA (cerebrovascular accident) (~2019) HTN (hypertension) Hyperlipidemia Obstructive sleep apnea on CPAP (~2008) Osteopenia (~2018) Pacemaker (~2021) Personal history of nicotine dependence PFO (patent foramen ovale) (~2019) Type II diabetes mellitus, well controlled Surgical History History of bladder surgery (~1999) History of cholecystectomy (~2000) History of colonoscopy History of esophagogastroduodenoscopy (EGD) History of pacemaker (~2021) History of unilateral oophorectomy Family History Family History Mother Stroke Multiple sclerosis Diabetes Father CAD (coronary artery disease) Social History Social History Alcohol intake: never Patient Tobacco Use Status: Current everyday Tobacco user Tobacco use type: Smokeless Tobacco Cigarettes Per Day: 1 Years Smoked: 40 +/- e-Cigarette/Vaping Use: Currently Using Advance Directives: No Advance Directives Information Provided: No service: No Current occupational status: retired Physical Exam Vital Signs: Vital Signs: Last Vital Signs Temp 101.3 F H 01/24/22 19:15 Pulse 100 01/24/22 19:15 Resp 18 01/24/22 19:15 BP 114/65 01/24/22 19:15 Pulse Ox 94 01/24/22 19:15 O2 Del Method 01/24/22 19:15 BMI result Body Mass Index 24.7 Appearance: Alert. Oriented X3. No acute distress. Eyes: Pupils equal, round and reactive to light. ENT: Pharynx normal. Neck: Normal inspection. Neck supple. CVS: Normal heart rate and rhythm. Pulses normal. Respiratory: No respiratory distress. Breath sounds normal. Abdomen: Soft and mild LUQ and LLQ ttp no rebound or guarding. Skin: Skin warm and dry. Normal skin color. Normal skin turgor. Extremities: No lower extremity edema. No calf ttp Neuro: Oriented X 3. No motor deficit. No sensory deficit. Course Course Course Narrative: notified by RN that the patient is a difficult stick at 840pm delay in antibiotics/labs/cultures due to this - line placed by RN and myself at 845pm L forearm 18G antibiotics previously ordered. Lab came down and did cultures and additional labs. patient and visitor very upset about wait time in ED - delay in read - patient has no WBC count, neg lactic acid, had mild colitis infl markers are high, she wanted to leave AMA but CT scan result is back - at this time can start her on augmentin and DC home given no perforation or abscess. patient states she is not staying in the hospital multiple times. MDM - Fever MDM Narrative Medical decision making narrative: 66 yo female with hx of PPM for sinus pause, HTN, CVA, HLD, PFO, Factor V Leiden on coumadin comes in with c/o fevers 102 since Tuesday without any travel, exposures and c/o mild LUQ and L mid abdomen pain. She has been complaining of vague abdominal discomfort to her doctor recently. Had an US with result this week that was normal. She hasn't had any tick bites. She really has no other symptoms other than dull aching abdominal pain, fevers, malaise. At this time will obtain cultures, lactic acid, UA, COVID/flu swab, CT scan for mass/infection/cancer - empiric zosyn ordered at this time. Dispo per results and findings. Lab Data Result diagrams: 01/24/22 17:47 01/24/22 17:47 Labs: Lab Results 01/24/22 01/24/22 01/24/22 Range/Units 17:47 17:47 17:47 WBC 7.3 (4.8-10.8) X10*3/uL RBC 4.38 (4.20-5.50) X10*6/uL Hgb 13.5 (12.0-16.0) g/dl Hct 39.0 (37.0-47.0) % MCV 89.0 (80.0-98.0) fL MCH 30.8 (27.0-33.0) pg MCHC 34.6 (31.0-35.0) g/dl RDW 13.3 (11.0-16.0) % Plt Count 216 D (160-400) X10*3/uL MPV 8.9 L (9.4-12.3) fL Immature Gran % (Auto) 0.4 (0.0-0.4) % Neut % (Auto) 64.2 (45-73) % Lymph % (Auto) 21.7 (20-40) % Bradley % (Auto) 11.3 H (2-11) % Eos % (Auto) 2.0 (0-4) % Baso % (Auto) 0.4 (0-2) % Lymph # (Auto) 1.6 (1.2-4.9) X10*3/uL Bradley # (Auto) 0.8 (0.1-1.2) X10*3/uL Eos # (Auto) 0.2 (0.0-0.4) X10*3/uL Baso # (Auto) 0.0 (0.0-0.2) X10*3/uL Abs Immat Gran (auto) 0.03 (0.00-0.03) X10*3/uL Absolute Neuts (auto) 4.7 (2.0-8.3) x10*3/uL Absolute Nucleated RBC 0.000 (0.0-0.012) X10*3/uL Nucleated RBC % (auto) 0.0 (0.0-0.2) /100WBC ESR (0-20) MM/HR PT (10.0-13.1) SEC INR (0.9-1.1) Sodium 134 L (135-145) mmol/L Potassium 4.0 (3.3-5.1) mmol/L Chloride 99 (96-108) mmol/L Carbon Dioxide 24 (22-29) mmol/L Anion Gap 15 (12-20) BUN 15 (9-16) mg/dL Creatinine 0.80 (0.5-1.4) mg/dL Estim Creat Clear Calc 53.5 Estimated GFR > 60 Random Glucose 180 H (60-115) mg/dL Lactic Acid (0.5-2.0) mmol/L Calcium 9.4 D (8.4-10.2) mg/dL Total Bilirubin 0.3 (0.0-1.0) mg/dL AST 75 H (5-31) U/L ALT 76 H (0-31) U/L Alkaline Phosphatase 99 D (39-117) U/L C-Reactive Protein (< or = 0.50) mg/dL Total Protein 7.2 (6.5-8.0) g/dL Albumin 4.2 (3.5-5.0) g/dL Lipase 10 (8-78) U/L Urine Color Urine Appearance Urine pH (5.0-8.0) Ur Specific [place] (1.005-1.025) Urine Protein (NEG-TRACE) MG/DL Urine Glucose (UA) (NEG) MG/DL Urine Ketones (NEG) MG/DL Urine Blood (NEG) Urine Nitrite (NEG) Ur Leukocyte Esterase (NEG) Urine RBC (0) /HPF Urine WBC (0-4) /HPF Ur Squamous Epith Cells /LPF Amorphous Sediment /LPF Urine Bacteria /LPF Granular Casts /LPF Urine Mucus /LPF COVID-19 (MISTY) Negative (Negative) COVID-19 Clin Com See Note Monoscreen (Negative) 01/24/22 01/24/22 01/24/22 Range/Units 17:52 20:35 20:41 WBC (4.8-10.8) X10*3/uL RBC (4.20-5.50) X10*6/uL Hgb (12.0-16.0) g/dl Hct (37.0-47.0) % MCV (80.0-98.0) fL MCH (27.0-33.0) pg MCHC (31.0-35.0) g/dl RDW (11.0-16.0) % Plt Count (160-400) X10*3/uL MPV (9.4-12.3) fL Immature Gran % (Auto) (0.0-0.4) % Neut % (Auto) (45-73) % Lymph % (Auto) (20-40) % Bradley % (Auto) (2-11) % Eos % (Auto) (0-4) % Baso % (Auto) (0-2) % Lymph # (Auto) (1.2-4.9) X10*3/uL Bradley # (Auto) (0.1-1.2) X10*3/uL Eos # (Auto) (0.0-0.4) X10*3/uL Baso # (Auto) (0.0-0.2) X10*3/uL Abs Immat Gran (auto) (0.00-0.03) X10*3/uL Absolute Neuts (auto) (2.0-8.3) x10*3/uL Absolute Nucleated RBC (0.0-0.012) X10*3/uL Nucleated RBC % (auto) (0.0-0.2) /100WBC ESR (0-20) MM/HR PT 15.1 H (10.0-13.1) SEC INR 1.3 H (0.9-1.1) Sodium (135-145) mmol/L Potassium (3.3-5.1) mmol/L Chloride (96-108) mmol/L Carbon Dioxide (22-29) mmol/L Anion Gap (12-20) BUN (9-16) mg/dL Creatinine (0.5-1.4) mg/dL Estim Creat Clear Calc Estimated GFR Random Glucose (60-115) mg/dL Lactic Acid 1.2 (0.5-2.0) mmol/L Calcium (8.4-10.2) mg/dL Total Bilirubin (0.0-1.0) mg/dL AST (5-31) U/L ALT (0-31) U/L Alkaline Phosphatase (39-117) U/L C-Reactive Protein (< or = 0.50) mg/dL Total Protein (6.5-8.0) g/dL Albumin (3.5-5.0) g/dL Lipase (8-78) U/L Urine Color DK YELLOW Urine Appearance HAZY Urine pH 5.5 (5.0-8.0) Ur Specific [place] >= 1.030 H (1.005-1.025) Urine Protein 2+ H (NEG-TRACE) MG/DL Urine Glucose (UA) NEG (NEG) MG/DL Urine Ketones 15 (NEG) MG/DL Urine Blood 3+ H (NEG) Urine Nitrite NEG (NEG) Ur Leukocyte Esterase NEG (NEG) Urine RBC 10-14 H (0) /HPF Urine WBC 0-2 (0-4) /HPF Ur Squamous Epith Cells 3+ /LPF Amorphous Sediment TRACE /LPF Urine Bacteria NONE /LPF Granular Casts 0-2 /LPF Urine Mucus TRACE /LPF COVID-19 (MISTY) (Negative) COVID-19 Clin Com Monoscreen (Negative) 07/05/0801/24/22 01/24/22 Range/Units 20:41 20:41 20:41 WBC (4.8-10.8) X10*3/uL RBC (4.20-5.50) X10*6/uL Hgb (12.0-16.0) g/dl Hct (37.0-47.0) % MCV (80.0-98.0) fL MCH (27.0-33.0) pg MCHC (31.0-35.0) g/dl RDW (11.0-16.0) % Plt Count (160-400) X10*3/uL MPV (9.4-12.3) fL Immature Gran % (Auto) (0.0-0.4) % Neut % (Auto) (45-73) % Lymph % (Auto) (20-40) % Bradley % (Auto) (2-11) % Eos % (Auto) (0-4) % Baso % (Auto) (0-2) % Lymph # (Auto) (1.2-4.9) X10*3/uL Bradley # (Auto) (0.1-1.2) X10*3/uL Eos # (Auto) (0.0-0.4) X10*3/uL Baso # (Auto) (0.0-0.2) X10*3/uL Abs Immat Gran (auto) (0.00-0.03) X10*3/uL Absolute Neuts (auto) (2.0-8.3) x10*3/uL Absolute Nucleated RBC (0.0-0.012) X10*3/uL Nucleated RBC % (auto) (0.0-0.2) /100WBC ESR 75 H (0-20) MM/HR PT (10.0-13.1) SEC INR (0.9-1.1) Sodium (135-145) mmol/L Potassium (3.3-5.1) mmol/L Chloride (96-108) mmol/L Carbon Dioxide (22-29) mmol/L Anion Gap (12-20) BUN (9-16) mg/dL Creatinine (0.5-1.4) mg/dL Estim Creat Clear Calc Estimated GFR Random Glucose (60-115) mg/dL Lactic Acid (0.5-2.0) mmol/L Calcium (8.4-10.2) mg/dL Total Bilirubin (0.0-1.0) mg/dL AST (5-31) U/L ALT (0-31) U/L Alkaline Phosphatase (39-117) U/L C-Reactive Protein 18.74 H (< or = 0.50) mg/dL Total Protein (6.5-8.0) g/dL Albumin (3.5-5.0) g/dL Lipase (8-78) U/L Urine Color Urine Appearance Urine pH (5.0-8.0) Ur Specific [place] (1.005-1.025) Urine Protein (NEG-TRACE) MG/DL Urine Glucose (UA) (NEG) MG/DL Urine Ketones (NEG) MG/DL Urine Blood (NEG) Urine Nitrite (NEG) Ur Leukocyte Esterase (NEG) Urine RBC (0) /HPF Urine WBC (0-4) /HPF Ur Squamous Epith Cells /LPF Amorphous Sediment /LPF Urine Bacteria /LPF Granular Casts /LPF Urine Mucus /LPF COVID-19 (MISTY) (Negative) COVID-19 Clin Com Monoscreen Negative (Negative) Discharge Plan Discharge Clinical Impression: CRP elevated, Elevated erythrocyte sedimentation rate, Colitis Fever Qualifiers: Fever type: unspecified Qualified Code(s): R50.9 - Fever, unspecified Abdominal pain Qualifiers: Abdominal location: left lower quadrant Qualified Code(s): R10.32 - Left lower quadrant pain Patient Disposition: Home, Self-Care Instructions: Fever in Adults (ED), Abdominal Pain (ED), Colitis (ED) Additional Instructions: return to ED for any worsening symptoms or concerns CT scan shows small area of focal colitis you have elevation inflammatory markers in your blood including CRP and ESR these need to be monitored by your doctor while on antibiotics take a probiotic over the counter while on antibiotics start augmentin on 01/25 return for no improvement in 24 to 48 hours while on antibiotics you have a lyme test pending if positive we will call you INR 1.3 Prescriptions: New ondansetron 4 mg tablet,disintegrating 4 mg PO Q8H PRN (Reason: nausea and vomiting) Qty: 20 0RF amoxicillin-pot clavulanate 875-125 mg tablet 1 tab PO BID Qty: 14 0RF No Action metoprolol succinate 25 mg tablet extended release 24 hr 25 mg PO DAILY Qty: 90 1RF (DME) blood sugar diagnostic Strip See Rx Instructions Not Applicable .MEDSUPPLY Qty: 10 Rx Instructions: As directed atorvastatin 40 mg tablet 40 mg PO DAILY magnesium oxide 400 mg (241.3 mg magnesium) tablet 400 mg PO DAILY pramipexole 1 mg tablet 0.5 mg PO BEDTIME PRN (Reason: Restless Leg(S)) fluticasone furoate-vilanterol 200-25 mcg/dose blister with device 1 inh inhalation DAILY metformin 500 mg tablet extended release 24 hr 1,000 mg PO BIDWM albuterol sulfate 90 mcg/actuation HFA aerosol inhaler 2 puff inhalation Q4H PRN (Reason: Shortness Of Breath) cholecalciferol (vitamin D3) 25 mcg (1,000 unit) capsule 25 mcg PO DAILY [id number] Tablet 1 tab PO DAILY oxcarbazepine 300 mg tablet 300 mg PO BID oxycodone 5 mg tablet 5 mg PO BEDTIME lisinopril 5 mg tablet 2.5 mg PO DAILY ipratropium bromide 21 mcg (0.03 %) spray,non-aerosol 2 spray intranasal BID Rx Instructions: administer into each nostril Daliresp 500 mcg tablet 500 mcg PO DAILY ondansetron HCl 4 mg tablet 4 mg PO Q8H PRN pantoprazole 20 mg tablet,delayed release (DR/EC) 20 mg PO DAILY warfarin 2.5 mg tablet PO Protocol: Dose Management Condition: Tuesday (Week One) Dose/Route: 7.5 mg Instruction: 3 x 2.5 mg tablets Condition: Tuesday Dose/Route: 7.5 mg Instruction: 3 x 2.5 mg tablets Condition: Tuesday Dose/Route: 7.5 mg Instruction: 3 x 2.5 mg tablets Condition: Tuesday Dose/Route: 7.5 mg Instruction: 3 x 2.5 mg tablets Condition: Dose/Route: 7.5 mg Instruction: 3 x 2.5 mg tablets Condition: Tuesday Dose/Route: 7.5 mg Instruction: 3 x 2.5 mg tablets Condition: Tuesday Dose/Route: 7.5 mg Instruction: 3 x 2.5 mg tablets Condition: Tuesday (Week Two) Dose/Route: 7.5 mg Instruction: 3 x 2.5 mg tablets Condition: Tuesday Dose/Route: 7.5 mg Instruction: 3 x 2.5 mg tablets Condition: Tuesday Dose/Route: 7.5 mg Instruction: 3 x 2.5 mg tablets Condition: Tuesday Dose/Route: 7.5 mg Instruction: 3 x 2.5 mg tablets Condition: Dose/Route: 7.5 mg Instruction: 3 x 2.5 mg tablets Condition: Tuesday Dose/Route: 7.5 mg Instruction: 3 x 2.5 mg tablets Condition: Tuesday Dose/Route: 7.5 mg Instruction: 3 x 2.5 mg tablets Protocol Text: Adjustment Start Date: Tuesday01/12/22 INR Value: 2.5 INR Date: 01/12/22 Recheck Date: 01/26/22 Additional Instructions: INR is perfect! continue same dosing, balance greens and reds in your diet call us with new medicine
[2022-01-24 19:15] VITALS: BP 114/65; PULSE 100; RESP 18; TEMP 38.5; O2SAT 94
--- NOTE | 2022-01-24 19:59 | PC.NURSE ---
Addendum entered by Osmel Randle 01/24/22 20:53: IV unable to be started by RNs Dr Amilcar minor IV at this time. Tristen start antibiotic Original Note: Zosyn started late due to patient being a hard IV start
[2022-01-24] MEDS: Acetaminophen 325 MG TABLET 650 MG PO (20:02)
[2022-01-24] MEDS: Piperacillin Sodium/Tazobactam 3.375 GM in 0.9 % Sodium Chloride 50 ML IV (20:53)
[2022-01-24 20:59] LABS: Lactic Acid 1.2 mmol/L (0.5-2.0)
[2022-01-24 21:00] LABS: INTERNATIONAL NORM RATIO 1.3 (0.9-1.1); Prothrombin Time 15.1 SEC (10.0-13.1)
[2022-01-24 21:07] LABS: C Reactive Protein 18.74 mg/dL (< or = 0.50)
[2022-01-24 21:08] LABS: Monotest Negative (Negative)
[2022-01-24] MEDS: iohexoL 350 MG/ML 100 ML INFUS..BTL IV (21:25)
[2022-01-24 21:35] LABS: Erythrocyte Sedimentation Rate 75 MM/HR (0-20)
[2022-01-27 04:56] LABS: Lyme Abs Screen <0.90 index
== END 2022-01-24 22:31 | disposition home or self-care (01) ==
PROVIDERS: Emergency Provider Emergency Medicine; PCP Internal Medicine
DX: K52.9 Noninfective gastroenteritis and colitis, unspecified (principal); R10.32 Left lower quadrant pain; R50.9 Fever, unspecified; R79.82 Elevated C-reactive protein (CRP); R70.0 Elevated erythrocyte sedimentation rate; I10 Essential (primary) hypertension; Z20.822 Contact with and (suspected) exposure to COVID-19; E78.5 Hyperlipidemia, unspecified; F17.200 Nicotine dependence, unspecified, uncomplicated; Z95.0 Presence of cardiac pacemaker; Z86.73 Personal history of transient ischemic attack (TIA), and cerebral infarction without residual deficits; Z79.01 Long term (current) use of anticoagulants; Z79.02 Long term (current) use of antithrombotics/antiplatelets; Z79.899 Other long term (current) drug therapy; Z79.84 Long term (current) use of oral hypoglycemic drugs
CPT/HCPCS: 36415; 71045; 74177; 80053; 81001; 83605; 83690; 85025; 85027; 85610; 85652; 86140; 86308; 86617; 86618; 87040; 87635; 96361; 96365; 99284; J2543; Q9967

== ENCOUNTER → 2022-01-25 11:01 | Outpatient (BNVA) | payer MEDICARE, OTHER, SELFPAY | PROVIDERS: PCP Internal Medicine; Visit Provider Internal Medicine | DX: Z86.73 Personal history of transient ischemic attack (TIA), and cerebral infarction without residual deficits (principal); Z79.01 Long term (current) use of anticoagulants; Z51.81 Encounter for therapeutic drug level monitoring | CPT/HCPCS: Q3014 ==

== ENCOUNTER → 2022-01-29 09:33 | Outpatient (BNVA) | payer MEDICARE, OTHER, SELFPAY | PROVIDERS: PCP Internal Medicine; Visit Provider Internal Medicine | DX: Z86.73 Personal history of transient ischemic attack (TIA), and cerebral infarction without residual deficits (principal); Z51.81 Encounter for therapeutic drug level monitoring; Z79.01 Long term (current) use of anticoagulants | CPT/HCPCS: 85610; 99211 ==

== ENCOUNTER 2022-02-03 08:58 | Outpatient (REF) | payer MEDICARE, OTHER, SELFPAY ==
[2022-02-03 10:25] LABS: Anion Gap 14 (12-20); Blood Urea Nitrogen 15 mg/dL (9-16); Calcium 9.7 mg/dL (8.4-10.2); Carbon Dioxide 26 mmol/L (22-29); Chloride 101 mmol/L (96-108); Estimated Glomerular Filt Rate > 60; Glucose Random 206 mg/dL (60-115); Potassium 5.2 mmol/L (3.3-5.1); Sodium 136 mmol/L (135-145)
== END 2022-02-03 08:59 | disposition home or self-care (01) ==
LOC: HO.LAB 08:58
PROVIDERS: PCP Internal Medicine; Visit Provider Internal Medicine
DX: I10 Essential (primary) hypertension (principal); E11.9 Type 2 diabetes mellitus without complications; Z86.73 Personal history of transient ischemic attack (TIA), and cerebral infarction without residual deficits; Z51.81 Encounter for therapeutic drug level monitoring; Z79.01 Long term (current) use of anticoagulants
CPT/HCPCS: 36415; 80048; 85610; 99211

== ENCOUNTER → 2022-02-08 09:01 | Outpatient (BNVA) | payer MEDICARE, OTHER, SELFPAY | PROVIDERS: PCP Internal Medicine; Visit Provider Internal Medicine | DX: Z86.73 Personal history of transient ischemic attack (TIA), and cerebral infarction without residual deficits (principal); Z51.81 Encounter for therapeutic drug level monitoring; Z79.01 Long term (current) use of anticoagulants | CPT/HCPCS: 85610; 99211 ==

== ENCOUNTER → 2022-02-15 08:52 | Outpatient (BNVA) | payer MEDICARE, OTHER, SELFPAY | PROVIDERS: PCP Internal Medicine; Visit Provider Internal Medicine | DX: Z86.73 Personal history of transient ischemic attack (TIA), and cerebral infarction without residual deficits (principal); Z79.01 Long term (current) use of anticoagulants; Z51.81 Encounter for therapeutic drug level monitoring | CPT/HCPCS: 85610; 99211 ==

== ENCOUNTER → 2022-02-22 09:05 | Outpatient (BNVA) | payer MEDICARE, OTHER, SELFPAY | PROVIDERS: PCP Internal Medicine; Visit Provider Internal Medicine | DX: Z86.73 Personal history of transient ischemic attack (TIA), and cerebral infarction without residual deficits (principal); Z79.01 Long term (current) use of anticoagulants; Z51.81 Encounter for therapeutic drug level monitoring | CPT/HCPCS: 85610; 99211 ==

== ENCOUNTER → 2022-02-26 14:12 | Outpatient (BNVA) | payer MEDICARE, OTHER, SELFPAY | PROVIDERS: PCP Internal Medicine; Visit Provider Internal Medicine | DX: Z86.718 Personal history of other venous thrombosis and embolism (principal); Z79.01 Long term (current) use of anticoagulants; Z51.81 Encounter for therapeutic drug level monitoring | CPT/HCPCS: Q3014 ==

== ENCOUNTER → 2022-03-05 08:55 | Outpatient (BNVA) | payer MEDICARE, OTHER, SELFPAY | PROVIDERS: PCP Internal Medicine; Visit Provider Internal Medicine | DX: Z86.73 Personal history of transient ischemic attack (TIA), and cerebral infarction without residual deficits (principal); Z79.01 Long term (current) use of anticoagulants; Z51.81 Encounter for therapeutic drug level monitoring | CPT/HCPCS: 85610; 99211 ==

== ENCOUNTER → 2022-03-17 09:01 | Outpatient (BNVA) | payer MEDICARE, OTHER, SELFPAY | PROVIDERS: PCP Internal Medicine; Visit Provider Internal Medicine | DX: Z86.73 Personal history of transient ischemic attack (TIA), and cerebral infarction without residual deficits (principal); Z51.81 Encounter for therapeutic drug level monitoring; Z79.01 Long term (current) use of anticoagulants | CPT/HCPCS: 85610; 99211 ==

== ENCOUNTER → 2022-03-23 09:33 | Outpatient (BNVA) | payer MEDICARE, OTHER, SELFPAY | PROVIDERS: PCP Internal Medicine; Referring Provider Internal Medicine; Visit Provider Internal Medicine Cardiovascular Disease | DX: Z45.018 Encounter for adjustment and management of other part of cardiac pacemaker (principal); I47.1 Supraventricular tachycardia; Q21.1 Atrial septal defect | CPT/HCPCS: 93005; 93280; 99212 ==

== ENCOUNTER 2022-03-29 09:10 | Outpatient (REF) | payer MEDICARE, MEDICAID, SELFPAY ==
[2022-03-29 10:14] LABS: Anion Gap 17 (12-20); Blood Urea Nitrogen 12 mg/dL (9-16); Calcium 9.3 mg/dL (8.4-10.2); Carbon Dioxide 25 mmol/L (22-29); Chloride 104 mmol/L (96-108); Estimated Glomerular Filt Rate > 60; Glucose Random 168 mg/dL (60-115); Sodium 141 mmol/L (135-145)
== END 2022-03-29 09:11 | disposition home or self-care (01) ==
LOC: HO.LAB 09:10
PROVIDERS: PCP Internal Medicine; Visit Provider Internal Medicine Cardiovascular Disease
DX: Z86.73 Personal history of transient ischemic attack (TIA), and cerebral infarction without residual deficits (principal)
CPT/HCPCS: 36415; 80048

== ENCOUNTER → 2022-03-31 09:05 | Outpatient (BNVA) | payer MEDICARE, MEDICAID, SELFPAY | PROVIDERS: PCP Internal Medicine; Visit Provider Internal Medicine | DX: Z86.73 Personal history of transient ischemic attack (TIA), and cerebral infarction without residual deficits (principal); Z79.01 Long term (current) use of anticoagulants; Z51.81 Encounter for therapeutic drug level monitoring | CPT/HCPCS: 85610; 99211 ==

== ENCOUNTER → 2022-04-09 09:16 | Outpatient (BNVA) | payer MEDICARE, MEDICAID, SELFPAY | PROVIDERS: PCP Internal Medicine; Visit Provider Internal Medicine | DX: Z86.73 Personal history of transient ischemic attack (TIA), and cerebral infarction without residual deficits (principal); Z51.81 Encounter for therapeutic drug level monitoring; Z79.01 Long term (current) use of anticoagulants | CPT/HCPCS: 85610; 99211 ==

== ENCOUNTER → 2022-04-23 08:53 | Outpatient (BNVA) | payer MEDICARE, MEDICAID, SELFPAY | PROVIDERS: PCP Internal Medicine; Visit Provider Internal Medicine | DX: Z86.73 Personal history of transient ischemic attack (TIA), and cerebral infarction without residual deficits (principal); Z79.01 Long term (current) use of anticoagulants; Z51.81 Encounter for therapeutic drug level monitoring | CPT/HCPCS: 85610; 99211 ==

== ENCOUNTER → 2022-05-03 12:53 | Outpatient (BNVA) | payer MEDICARE, MEDICAID, SELFPAY | PROVIDERS: PCP Internal Medicine; Referring Provider Internal Medicine; Visit Provider Internal Medicine | DX: R13.10 Dysphagia, unspecified (principal); K52.9 Noninfective gastroenteritis and colitis, unspecified; R63.4 Abnormal weight loss; R68.81 Early satiety | CPT/HCPCS: 99202 ==

== ENCOUNTER 2022-05-05 09:23 | Outpatient (REF) | payer MEDICARE, MEDICAID, SELFPAY ==
[2022-05-05 10:49] LABS: INTERNATIONAL NORM RATIO 2.3 (0.9-1.1); Prothrombin Time 26.9 SEC (10.0-13.1)
[2022-05-05 11:27] LABS: Alanine Aminotransferase 20 U/L (0-31); Albumin Level 4.7 g/dL (3.5-5.0); Alkaline Phosphatase 87 U/L (39-117); Anion Gap 20 (12-20); Aspartate Amino Transferase 21 U/L (5-31); Bilirubin Total 0.2 mg/dL (0.0-1.0); Blood Urea Nitrogen 12 mg/dL (9-16); C Reactive Protein 0.35 mg/dL (< or = 0.50); Calcium 9.9 mg/dL (8.4-10.2); Carbon Dioxide 25 mmol/L (22-29); Chloride 102 mmol/L (96-108); Estimated Glomerular Filt Rate > 60; Glucose Random 150 mg/dL (60-115); Iron 70 mcg/dL (30-160); Percent Iron Saturation 16 % (15-50); Potassium 4.4 mmol/L (3.3-5.1); Sodium 143 mmol/L (135-145); Total Iron Binding Capacity 426 mcg/dL (228-428); Total Protein 7.8 g/dL (6.5-8.0); Unsaturated Iron Binding 356 ug/dL
[2022-05-05 11:49] LABS: Ferritin 31 ng/mL (10-250)
[2022-05-05 11:59] LABS: Folate > 20.0 ng/mL (> or = 4.0); Vitamin B12 1367 pg/mL (200-900)
[2022-05-07 14:56] LABS: Immunoglobulin A 252 mg/dL (70-320)
[2022-05-10 14:23] LABS: Transglutaminase IgA <1.0 U/mL
== END 2022-05-05 09:24 | disposition home or self-care (01) ==
LOC: HO.LAB 09:23
PROVIDERS: PCP Internal Medicine; Visit Provider Internal Medicine
DX: K52.9 Noninfective gastroenteritis and colitis, unspecified (principal); R63.4 Abnormal weight loss; Z79.01 Long term (current) use of anticoagulants
CPT/HCPCS: 36415; 80053; 82607; 82728; 82746; 82784; 83540; 85610; 86140; 86364

== ENCOUNTER 2022-05-06 17:30 | Outpatient (REF) | payer MEDICARE, MEDICAID, SELFPAY ==
[2022-05-07 12:46] LABS: Adenovirus F 40/41 Not Detected (Not Detect.); Astrovirus Not Detected (Not Detect.); Campylobacter Not Detected (Not Detect.); Cryptosporidium Not Detected (Not Detect.); Cyclospora cayetanensis Not Detected (Not Detect.); E. coli EAEC Not Detected (Not Detect.); E. coli EPEC Not Detected (Not Detect.); E. coli ETEC Not Detected (Not Detect.); E. coli STEC Not Detected (Not Detect.); Entamoeba histolytica Not Detected (Not Detect.); Giardia lamblia Not Detected (Not Detect.); Norovirus GI/GII Not Detected (Not Detect.); Plesiomonas shigelloides Not Detected (Not Detect.); Rotavirus A Not Detected (Not Detect.); Salmonella Not Detected (Not Detect.); Sapovirus Not Detected (Not Detect.); Shigella sp./EIEC Not Detected (Not Detect.); Vibrio Not Detected (Not Detect.); Vibrio Cholerae Not Detected (Not Detect.); Yersinia enterocolitica Not Detected (Not Detect.)
[2022-05-14 20:37] LABS: Calprotectin, Fecal 20 mcg/g
[2022-05-17 17:56] LABS: Pancreatic Elastase-1 450 mcg/g
== END 2022-05-06 17:31 | disposition home or self-care (01) ==
LOC: HO.LNP 17:30
PROVIDERS: Visit Provider Internal Medicine
DX: K52.9 Noninfective gastroenteritis and colitis, unspecified (principal); R63.4 Abnormal weight loss
CPT/HCPCS: 82656; 83993; 87507

== ENCOUNTER → 2022-05-07 08:47 | Outpatient (BNVA) | payer MEDICARE, MEDICAID, SELFPAY | PROVIDERS: PCP Internal Medicine; Visit Provider Internal Medicine | DX: Z86.73 Personal history of transient ischemic attack (TIA), and cerebral infarction without residual deficits (principal); Z79.01 Long term (current) use of anticoagulants; Z51.81 Encounter for therapeutic drug level monitoring | CPT/HCPCS: 85610; 99211 ==

== ENCOUNTER → 2022-05-21 08:59 | Outpatient (BNVA) | payer MEDICARE, MEDICAID, SELFPAY | PROVIDERS: PCP Internal Medicine; Visit Provider Internal Medicine | DX: Z86.73 Personal history of transient ischemic attack (TIA), and cerebral infarction without residual deficits (principal); Z79.01 Long term (current) use of anticoagulants; Z51.81 Encounter for therapeutic drug level monitoring | CPT/HCPCS: 85610; 99211 ==

== ENCOUNTER → 2022-05-28 08:41 | Outpatient (BNVA) | payer MEDICARE, MEDICAID, SELFPAY | PROVIDERS: PCP Internal Medicine; Visit Provider Internal Medicine | DX: Z86.73 Personal history of transient ischemic attack (TIA), and cerebral infarction without residual deficits (principal); Z79.01 Long term (current) use of anticoagulants; Z51.81 Encounter for therapeutic drug level monitoring | CPT/HCPCS: 85610; 99211 ==

== ENCOUNTER → 2022-06-03 08:45 | Outpatient (BNVA) | payer MEDICARE, MEDICAID, SELFPAY | PROVIDERS: PCP Internal Medicine; Visit Provider Internal Medicine | DX: Z86.73 Personal history of transient ischemic attack (TIA), and cerebral infarction without residual deficits (principal); Z79.01 Long term (current) use of anticoagulants; Z51.81 Encounter for therapeutic drug level monitoring | CPT/HCPCS: 85610; 99212 ==

== ENCOUNTER 2022-06-04 09:27 | Day surgery (SDC) | payer MEDICARE, MEDICAID, SELFPAY ==
[2022-05-28 11:21] VITALS: BMI 22.8
--- NOTE | 2022-05-28 12:08 | P.CONAN_ITS ---
Documented by User: Bambi Diaz NP 05/28/22 12:15 HPI - Anesthesia Eval Consult details Narrative: 66yo F for Upper Endoscopy and Colonoscopy Cardiac optimized Coumadin for hx CVA/PFO/Factor V - to bridge with lovenox Pacer in situ for sinus pause PMFSH Active Problems Active Problems: All Active Problems (Updated 05/03/22 @ 14:03 by Shannon Mcadams MD) Sinus tachycardia (Acute) Hypersomnia (Acute) Sinus pause (Acute) Dizziness (Acute) Cardiac pacemaker in situ (Acute) Dysphagia (Acute) Chronic diarrhea (Acute) Weight loss (Acute) Early satiety (Acute) Personal history of nicotine dependence (Acute) Current use of anticoagulant therapy (Acute ~2019) History of CVA (cerebrovascular accident) (Acute ~2019) PFO (patent foramen ovale) (Acute ~2019) HTN (hypertension) (Acute) Hyperlipidemia (Acute) Obstructive sleep apnea on CPAP (Acute ~2008) Osteopenia (Acute ~2018) Past Medical History Medical History COPD (chronic obstructive pulmonary disease) Current use of anticoagulant therapy (~2019) Factor 5 Leiden mutation, heterozygous History of colon polyps (~2009) History of CVA (cerebrovascular accident) (~2019) HTN (hypertension) Hyperlipidemia Obstructive sleep apnea on CPAP (~2008) Osteopenia (~2018) Pacemaker (~2021) Personal history of nicotine dependence PFO (patent foramen ovale) (~2019) Type II diabetes mellitus, well controlled Family History Family History Mother Stroke Multiple sclerosis Diabetes Father CAD (coronary artery disease) Family history of problems with anesthesia: No Surgical History Surgical History History of bladder surgery (~1999) History of cholecystectomy (~2000) History of colonoscopy History of esophagogastroduodenoscopy (EGD) History of pacemaker (~2021) History of unilateral oophorectomy Hx of blepharoplasty Hx of cystoscopy History of Problems with Anesthesia: No Social History Social History Alcohol intake: never Patient Tobacco Use Status: Current everyday Tobacco user Tobacco use type: Cigarette Cigarettes Per Day: 5 Years Smoked: 40 +/- e-Cigarette/Vaping Use: Currently Using Date Education Initiated: 06/04/22 Use of substances other than those prescribed or required for medical reasons: No Are you DNR?: No Advance Directives: No Advance Directives Information Provided: Yes service: No Current occupational status: retired Meds Allergies Allergy/AdvReac Type Severity Reaction Status Date / Time vancomycin [VANCOMYCIN] Allergy Intermediate ITCHING/ELOY Verified 06/03/22 08:48 H metoclopramide [From Reglan] AdvReac Intermediate Nausea and Verified 06/03/22 08:48 Vomiting Home Medications Medication Instructions Recorded Confirmed Last Taken Type albuterol sulfate 90 mcg/actuation 2 puff inhalation Q4H PRN 07/02/20 06/03/22 06/04/22 History aerosol inhaler Shortness Of Breath atorvastatin 40 mg tablet 40 mg PO DAILY 07/21/20 06/03/22 Unknown History pramipexole 1 mg tablet 0.5 mg PO BEDTIME PRN Restless 07/21/20 06/03/22 Unknown History Leg(S) cholecalciferol (vitamin D3) 25 25 mcg PO DAILY 12/16/20 06/03/22 Unknown History mcg (1,000 unit) capsule blood sugar diagnostic #10 ea 01/14/21 05/21/22 Unknown History oxcarbazepine 300 mg tablet 300 mg PO BID 05/20/21 06/03/22 06/04/22 History fluticasone furoate 200 1 inh inhalation DAILY 07/21/21 06/03/22 Unknown History mcg-vilanterol 25 mcg/dose inhalation powder metformin 500 mg tablet,extended 1,000 mg PO BIDWM 07/21/21 06/03/22 Unknown History release 24 hr roflumilast 500 mcg tablet 500 mcg PO DAILY 07/21/21 06/03/22 Unknown History (Daliresp) oxycodone 5 mg tablet 5 mg PO BEDTIME 08/18/21 06/03/22 Unknown History warfarin 2.5 mg tablet 2.5 mg PO DIRECTED 12/11/21 06/03/22 Unknown History ipratropium bromide 21 mcg (0.03 2 spray intranasal BID 01/12/22 06/03/22 Unknown History %) nasal spray umeclidinium 62.5 mcg/actuation 1 inh inhalation DAILY 02/08/22 06/03/22 Unknown History blister powder for inhalation (Incruse Ellipta) azithromycin 250 mg tablet 250 mg PO 3XW 02/26/22 06/03/22 Unknown History albuterol sulfate 2.5 mg/3 mL 2.5 mg inhalation Q8H PRN wheezing 03/05/22 06/03/22 Unknown History (0.083 %) solution for nebulization warfarin 5 mg tablet 5 mg PO DIRECTED 03/23/22 06/03/22 05/29/22 History fluticasone propionate 50 1 spray intranasal BID 03/31/22 06/03/22 Unknown History mcg/actuation nasal spray,suspension ondansetron HCl 4 mg tablet 4 mg PO Q8H PRN nausea 05/21/22 06/03/22 Unknown History enoxaparin 60 mg/0.6 mL 60 mg subcut Q12H 06/04/22 06/04/22 06/03/22 History subcutaneous syringe (Lovenox) Exam Exam Date and Time: May 28, 2022 1208 Height,Weight and Vital Signs: Height 5 ft Weight 53 kg Pertinent Lab Results Pertinent Lab Results: Laboratory Tests 01/24/22 05/05/22 17:47 10:03 Hgb 13.5 Hct 39.0 Plt Count 216 D Sodium 143 Potassium 4.4 Chloride 102 Carbon Dioxide 25 BUN 12 Creatinine 0.74 Narrative Narrative: EKG 04/2022 NSR @ 69 ECHO 2019 1. PFO present with saline contrast study 2. Nml LV systolic function with impaired relaxation filling pattern 3. Nml cardiac valvular doppler 4. No pericardial effusion Pacer Interr 02/2022 Mode AAI<=>DDD Low rate 60bmp, High rate 130 SHREDDER TENDER <0.1% AP 0.5% Assessment and Plan Final Anesthetic Review Family History of Problems with Anesthesia: No History of Problems with Anesthesia: No Documented by User: Jossy Gupta MD 06/04/22 10:35 PMFSH Active Problems Active Problems: All Active Problems (Updated 05/03/22 @ 14:03 by Shannon Mcadams MD) Sinus tachycardia (Acute) Hypersomnia (Acute) Sinus pause (Acute) Dizziness (Acute) Cardiac pacemaker in situ (Acute) Dysphagia (Acute) Chronic diarrhea (Acute) Weight loss (Acute) Early satiety (Acute) Personal history of nicotine dependence (Acute) Current use of anticoagulant therapy (Acute ~2019). Coumadin till 05/29/22. Lovenox bridge sine. Last dose 06/03/22 History of CVA (cerebrovascular accident) (Acute ~2019) PFO (patent foramen ovale) (Acute ~2019) HTN (hypertension) (Acute) Hyperlipidemia (Acute) Obstructive sleep apnea on CPAP (Acute ~2008) and O2@night 2L Osteopenia (Acute ~2018) Smoker Past Medical History Medical History COPD (chronic obstructive pulmonary disease) Current use of anticoagulant therapy (~2019) Factor 5 Leiden mutation, heterozygous History of colon polyps (~2009) History of CVA (cerebrovascular accident) (~2019) HTN (hypertension) Hyperlipidemia Obstructive sleep apnea on CPAP (~2008) Osteopenia (~2018) Pacemaker (~2021) Personal history of nicotine dependence PFO (patent foramen ovale) (~2019) Type II diabetes mellitus, well controlled Family History Family History Mother Stroke Multiple sclerosis Diabetes Father CAD (coronary artery disease) Surgical History Surgical History History of bladder surgery (~1999) History of cholecystectomy (~2000) History of colonoscopy History of esophagogastroduodenoscopy (EGD) History of pacemaker (~2021) History of unilateral oophorectomy Hx of blepharoplasty Hx of cystoscopy Social History Social History Alcohol intake: never Patient Tobacco Use Status: Current everyday Tobacco user Tobacco use type: Cigarette Cigarettes Per Day: 5 Years Smoked: 40 +/- e-Cigarette/Vaping Use: Currently Using Date Education Initiated: 06/04/22 Use of substances other than those prescribed or required for medical reasons: No Are you DNR?: No Advance Directives: No Advance Directives Information Provided: Yes service: No Current occupational status: retired Meds Allergies Allergy/AdvReac Type Severity Reaction Status Date / Time vancomycin [VANCOMYCIN] Allergy Intermediate ITCHING/ELOY Verified 06/03/22 08:48 H metoclopramide [From Reglan] AdvReac Intermediate Nausea and Verified 06/03/22 08:48 Vomiting Home Medications Medication Instructions Recorded Confirmed Last Taken Type albuterol sulfate 90 mcg/actuation 2 puff inhalation Q4H PRN 07/02/20 06/03/22 06/04/22 History aerosol inhaler Shortness Of Breath atorvastatin 40 mg tablet 40 mg PO DAILY 07/21/20 06/03/22 Unknown History pramipexole 1 mg tablet 0.5 mg PO BEDTIME PRN Restless 07/21/20 06/03/22 Unknown History Leg(S) cholecalciferol (vitamin D3) 25 25 mcg PO DAILY 12/16/20 06/03/22 Unknown History mcg (1,000 unit) capsule blood sugar diagnostic #10 ea 01/14/21 05/21/22 Unknown History oxcarbazepine 300 mg tablet 300 mg PO BID 05/20/21 06/03/22 06/04/22 History fluticasone furoate 200 1 inh inhalation DAILY 07/21/21 06/03/22 Unknown History mcg-vilanterol 25 mcg/dose inhalation powder metformin 500 mg tablet,extended 1,000 mg PO BIDWM 07/21/21 06/03/22 Unknown History release 24 hr roflumilast 500 mcg tablet 500 mcg PO DAILY 07/21/21 06/03/22 Unknown History (Daliresp) oxycodone 5 mg tablet 5 mg PO BEDTIME 08/18/21 06/03/22 Unknown History warfarin 2.5 mg tablet 2.5 mg PO DIRECTED 12/11/21 06/03/22 Unknown History ipratropium bromide 21 mcg (0.03 2 spray intranasal BID 01/12/22 06/03/22 Unknown History %) nasal spray umeclidinium 62.5 mcg/actuation 1 inh inhalation DAILY 02/08/22 06/03/22 Unknown History blister powder for inhalation (Incruse Ellipta) azithromycin 250 mg tablet 250 mg PO 3XW 02/26/22 06/03/22 Unknown History albuterol sulfate 2.5 mg/3 mL 2.5 mg inhalation Q8H PRN wheezing 03/05/22 06/03/22 Unknown History (0.083 %) solution for nebulization warfarin 5 mg tablet 5 mg PO DIRECTED 03/23/22 06/03/22 05/29/22 History fluticasone propionate 50 1 spray intranasal BID 03/31/22 06/03/22 Unknown History mcg/actuation nasal spray,suspension ondansetron HCl 4 mg tablet 4 mg PO Q8H PRN nausea 05/21/22 06/03/22 Unknown History enoxaparin 60 mg/0.6 mL 60 mg subcut Q12H 06/04/22 06/04/22 06/03/22 History subcutaneous syringe (Lovenox) Exam Height,Weight and Vital Signs: Height 5 ft Weight 53 kg Vital Signs Temp Pulse Resp BP Pulse Ox O2 Del Method 06/04/22 09:45 100.3 F 106 H 18 125/67 95 Room Air Pertinent Lab Results Pertinent Lab Results: Laboratory Tests 01/24/22 05/05/22 17:47 10:03 Hgb 13.5 Hct 39.0 Plt Count 216 D Sodium 143 Potassium 4.4 Chloride 102 Carbon Dioxide 25 BUN 12 Creatinine 0.74 Lab Results 06/04/22 06/04/22 Range/Units 09:41 09:55 PT 11.0 (10.0-13.1) SEC INR 1.0 (0.9-1.1) POC Glucose 120 H (60-115) mg/dL Airway Mallampati Class: II TM Dist: >3cm Neck ROM: Full Denture: Upper Loose/Missing/Broken Teeth: Yes Heart: RRR Lungs: CTAB Assessment and Plan Final Anesthetic Review NPO: Yes ASA Class: IV Final Preanesthetic Review: No Changes in Pt Med Stat, Meds/Allgs Chart Reviewed, Consent Obtained/Reviewed and Anes Risks/Benef Reviewed Patient Risk: Intermediate Procedure Risk: Low Assessment/Block/Sedation in SS: Assess/Block/Sedation-SS Anesthetic Plan Anesthetic Plan: MAC: and Agree w/ Assess. and Plan Disposition: Standard PACU
[2022-06-04 09:45] VITALS: BP 125/67; PULSE 106; RESP 18; TEMP 37.9; O2SAT 95; BMI 23.4
[2022-06-04 10:12] LABS: Glucose, Whole Blood 120 mg/dL (60-115)
[2022-06-04] MEDS: Lactated Ringers 1,000 ML 100 ML IVCONT (10:19)
--- NOTE | 2022-06-04 11:27 | MHC.SHP ---
Pre-Procedural Eval Section A Date of Service: 06/04/22 Section B Chief Complaint: dysphagia, chronic diarrhea, weight loss Details of Present Illness: 66y.o F with hx of loose watery diarrhea and weight loss x 2-3 months. + worsening dysphagia with sensation of food getting stuck upper chest. Was on lovenox bridge for factor V leiden, last shot was yest AM Here for EGD +/- dil and colonoscopy Present Medications: see Short Stay Collaborative assessment Medical History: Significant History (COPD, factor 5 laden heterozygosity, PFO (not a candidate for closure), history of CVA, on warfarin, personal history of polyps, ) Allergies: Allergies Allergy/AdvReac Type Severity Reaction Status Date / Time vancomycin [VANCOMYCIN] Allergy Intermediate ITCHING/ELOY Verified 06/03/22 08:48 H metoclopramide [From Reglan] AdvReac Intermediate Nausea and Verified 06/03/22 08:48 Vomiting Review of Systems Review of Systems Comment: 10 point ROS negative except as above Exam Exam Comment: Gen appear: No acute distress, well nourished HEENT: no icterus, no cervical lymphadenopathy Chest: No overt resp distress Abd: soft, nontender, nondistended Psych: Stable affect, answering questions appropriately Neuro: A/Ox3 noted to move all extremities spontaneously Ext: no peripheral edema Plan Diagnosis/Plan: Unchanged I have reviewed the history and physical and performed a pertinent physical examination on my patient. No changes have occurred unless specified.
--- NOTE | 2022-06-04 11:32 | P.OP_ITS ---
Operative Note Operative Note Date of Service: 06/04/22 Narrative: Procedure: Esophagogastroduodenoscopy and colonoscopy Endoscopist: Shannon Mcadams MD Indication: Chronic diarrhea, dysphagia, weight loss Anesthesia Provider: Holley Woods Anesthesia Type: MAC Instrument: Olympus GIF-H190 and PCF-H190L EGD Procedure:?? The procedure, indications, preparation and potential complications were reviewed with the patient, who indicated understanding and gave written informed consent to proceed. A physical exam was performed.The endoscope was introduced through the mouth, and advanced to the second part of duodenum. The mucosa was carefully examined on slow withdrawal of the endoscope. The patient tolerated the procedure well. There were no immediate complications.? EGD Findings:? * Esophagus:? Small erosions and ulceration measuring less than 5 mm were noted at the GE junction. The Z line was at 37. Esophageal spasm and tertirary contractions noted during the endoscopy. * Stomach:? Multiple diminutive erosions with heme noted throughout the body and fundus. Random cold forceps gastric biopsies were taken to rule out H Pylori infection. * Duodenum:? Normal mucosa was noted in the whole of the examined duodenum. Additional interventions: A wire guided Savary-Guillard bougie was introduced through the bite block and the diameter was progressively increased from 16 mm to 20 mm. No resistance was felt on 20 mm. No tear or heme noted in the eso phagus on relook. Colonoscopy procedure: The patient was then turned for the colonoscopy. A digital rectal exam was performed which was abnormal due to finding of hemorrhoids. The colonoscope was then inserted through the anus and advanced through the colon to the cecum at 75 cm,and terminal ileum. Mucosa was carefully examined under high definition white light as the instrument was slowly withdrawn in a retrograde panoramic fashion. Retroflexion was performed in ascending colon and rectum. The procedure was not difficult. There were no immediate obvious complications. The quality of the prep was BBPS: 2+3+2 = adequate Withdrawal time 14 minutes. Limitations: No limitations. Findings: Mucosa: Normal to cecum and terminal ileum. Protruding lesions: * 1 sessile polyp of size 3 mm in ascending colon. Cold snare polypectomy was performed. The polyp was completely removed and retrieved. * 2 sessile polyp of size 6-8 mm in transverse colon. Cold snare polypectomy was performed. The polyp was completely removed and retrieved. * 1 sessile polyp of size 3 mm in rectum. Cold snare polypectomy was performed. The polyp was completely removed and retrieved. * Small internal hemorrhoids without stigmata of recent bleeding. Excavated lesions: * Moderate diverticulosis of whole colon. Impression:? * Grade A esophagitis * Esophageal spasms * Empiric Savary dilation to 20 mm * Gastritis (biopsy) * Normal duodenum * Normal colon and terminal ileum mucosa * Total of 4 polyps removed from ascending, transverse colon and rectum. * Diverticulosis * External and internal hemorrhoids Recommendations:?? * Follow biopsy results. Our office will call or send a letter with results within 7-10 days. * Start/continue PPI therapy. * If H pylori +, patient will be prescribed eradication therapy followed by test of cure. * Obtain [facility] records (pt reportedly had a manometry done). * Resume anticoagulation tomorrow. * Repeat colonoscopy in 3 years if all polyps are adenomas, otherwise 5 years. * Avoid NSAIDs and smoking. * Follow up in GI office as scheduled. Above has been reviewed with the patient. Educational hand outs were provided at discharge.
[2022-06-04 12:38] VITALS: BP 101/56; PULSE 81; RESP 16; TEMP 36.3; O2SAT 96
[2022-06-04 12:53] VITALS: BP 100/52; PULSE 84; RESP 18; O2SAT 98
== END 2022-06-04 13:30 | disposition home or self-care (01) ==
PROVIDERS: Nurse Practitioner; PCP Internal Medicine; Visit Provider Internal Medicine
PROC: (CPT 45385; principal; 2022-06-04 10:50)
DX: K52.9 Noninfective gastroenteritis and colitis, unspecified (principal); D12.2 Benign neoplasm of ascending colon; D12.3 Benign neoplasm of transverse colon; K62.1 Rectal polyp; K57.30 Diverticulosis of large intestine without perforation or abscess without bleeding; K64.8 Other hemorrhoids; K64.4 Residual hemorrhoidal skin tags; R63.4 Abnormal weight loss; Z68.22 Body mass index [BMI] 22.0-22.9, adult; R13.10 Dysphagia, unspecified; K20.80 Other esophagitis without bleeding; K29.50 Unspecified chronic gastritis without bleeding; J44.9 Chronic obstructive pulmonary disease, unspecified; D68.51 Activated protein C resistance; E11.9 Type 2 diabetes mellitus without complications; Q21.12 Patent foramen ovale; G47.33 Obstructive sleep apnea (adult) (pediatric); R53.83 Other fatigue; Z86.73 Personal history of transient ischemic attack (TIA), and cerebral infarction without residual deficits; Z79.01 Long term (current) use of anticoagulants; Z79.51 Long term (current) use of inhaled steroids; Z79.84 Long term (current) use of oral hypoglycemic drugs; Z79.899 Other long term (current) drug therapy; Z99.89 Dependence on other enabling machines and devices; Z88.1 Allergy status to other antibiotic agents; Z88.8 Allergy status to other drugs, medicaments and biological substances; F17.290 Nicotine dependence, other tobacco product, uncomplicated
CPT/HCPCS: 45385; 43248; 43239; 36415; 82947; 85610; 88305; 88342; C1769; J2250; J2370

== ENCOUNTER → 2022-06-08 08:50 | Outpatient (BNVA) | payer MEDICARE, MEDICAID, SELFPAY | PROVIDERS: PCP Internal Medicine; Visit Provider Internal Medicine | DX: Z86.73 Personal history of transient ischemic attack (TIA), and cerebral infarction without residual deficits (principal); Z51.81 Encounter for therapeutic drug level monitoring; Z79.01 Long term (current) use of anticoagulants | CPT/HCPCS: 85610; 99212 ==

== ENCOUNTER 2022-06-11 06:36 | Outpatient (REF) | payer MEDICARE, MEDICAID, SELFPAY ==
[2022-06-11 07:33] LABS: INTERNATIONAL NORM RATIO 1.7 (0.9-1.1); Prothrombin Time 20.1 SEC (10.0-13.1)
== END 2022-06-11 06:37 | disposition home or self-care (01) ==
LOC: HO.LAB 06:36
PROVIDERS: PCP Internal Medicine; Visit Provider Internal Medicine
DX: Q21.12 Patent foramen ovale (principal); Z86.73 Personal history of transient ischemic attack (TIA), and cerebral infarction without residual deficits; Z79.01 Long term (current) use of anticoagulants
CPT/HCPCS: 36415; 85610

== ENCOUNTER → 2022-06-14 09:46 | Outpatient (BNVA) | payer MEDICARE, MEDICAID, SELFPAY | PROVIDERS: PCP Internal Medicine; Visit Provider Internal Medicine | DX: Z86.73 Personal history of transient ischemic attack (TIA), and cerebral infarction without residual deficits (principal); Z51.81 Encounter for therapeutic drug level monitoring; Z79.01 Long term (current) use of anticoagulants | CPT/HCPCS: 85610; 99211 ==

== ENCOUNTER 2022-06-17 09:08 | Outpatient (REF) | payer MEDICARE, MEDICAID, SELFPAY ==
--- NOTE | ~2022-06-17 | FL_ITS ---
PROCEDURE: FL BARIUM SWALLOW CLINICAL INFORMATION: Dysphagia. COMPARISON: None TECHNIQUE: Barium swallow examination is performed using fluoroscopic evaluation in addition to multiple fluoroscopic spot views. The patient is imaged both upright and prone and using both thick and thin sulfate along with effervescent granules. Fluoroscopy time: 1.8 minutes DAP: 3.781 Gycm2 Images: 47 FINDINGS: Following oral administration of thick barium, barium-coated turkey in upright view there is normal propagation of bolus from the oral cavity through the pharynx, esophagus into stomach without any evidence of obstruction, narrowing or stricture. No extrinsic compression seen. No laryngeal penetration or aspiration. There are pacer electrodes in right atrium and right ventricle. The GE junction is widely patent. On oral administration of thin barium in prone lying position there is good distention of the esophagus without obstruction or narrowing. The GE junction is widely patent. No gastroesophageal reflux seen, however, there is a small sliding hiatal hernia noted. FL/FL barium swallow IMPRESSION: Small sliding hiatal hernia otherwise unremarkable barium swallow exam.
== END 2022-06-17 09:09 | disposition home or self-care (01) ==
LOC: HO.XRAY 09:08
PROVIDERS: PCP Internal Medicine; Visit Provider Internal Medicine
DX: R13.10 Dysphagia, unspecified (principal)
CPT/HCPCS: 74220

== ENCOUNTER → 2022-06-18 12:16 | Outpatient (BNVA) | payer MEDICARE, MEDICAID, SELFPAY | PROVIDERS: PCP Internal Medicine; Referring Provider Internal Medicine; Visit Provider Internal Medicine | DX: K21.00 Gastro-esophageal reflux disease with esophagitis, without bleeding (principal); K22.4 Dyskinesia of esophagus; R13.10 Dysphagia, unspecified; D12.6 Benign neoplasm of colon, unspecified | CPT/HCPCS: 99212 ==

== ENCOUNTER → 2022-06-22 09:11 | Outpatient (BNVA) | payer MEDICARE, MEDICAID, SELFPAY | PROVIDERS: PCP Internal Medicine; Visit Provider Internal Medicine | DX: Z86.73 Personal history of transient ischemic attack (TIA), and cerebral infarction without residual deficits (principal); Z79.01 Long term (current) use of anticoagulants; Z51.81 Encounter for therapeutic drug level monitoring | CPT/HCPCS: 85610; 99211 ==

== ENCOUNTER → 2022-07-02 09:07 | Outpatient (BNVA) | payer MEDICARE, MEDICAID, SELFPAY | PROVIDERS: PCP Internal Medicine; Visit Provider Internal Medicine | DX: Z86.73 Personal history of transient ischemic attack (TIA), and cerebral infarction without residual deficits (principal); Z79.01 Long term (current) use of anticoagulants; Z51.81 Encounter for therapeutic drug level monitoring | CPT/HCPCS: 85610; 99211 ==

== ENCOUNTER → 2022-07-16 09:02 | Outpatient (BNVA) | payer MEDICARE, MEDICAID, SELFPAY | PROVIDERS: PCP Internal Medicine; Visit Provider Internal Medicine | DX: Z86.73 Personal history of transient ischemic attack (TIA), and cerebral infarction without residual deficits (principal); Z79.01 Long term (current) use of anticoagulants; Z51.81 Encounter for therapeutic drug level monitoring | CPT/HCPCS: 85610; 99211 ==

== ENCOUNTER → 2022-07-23 09:45 | Outpatient (BNVA) | payer MEDICARE, MEDICAID, SELFPAY | PROVIDERS: PCP Internal Medicine; Visit Provider Internal Medicine | DX: Z86.73 Personal history of transient ischemic attack (TIA), and cerebral infarction without residual deficits (principal); Z79.01 Long term (current) use of anticoagulants; Z51.81 Encounter for therapeutic drug level monitoring | CPT/HCPCS: 85610; 99211 ==

== ENCOUNTER 2022-07-26 06:05 | Outpatient (REF) | payer MEDICARE, MEDICAID, SELFPAY ==
[2022-07-26 06:19] LABS: MANUAL DIFF FLAG NO
[2022-07-26 07:43] LABS: Basophils Percent Auto 0.4 % (0-2); Eosinophils Absolute Auto 0.2 X10*3/uL (0.0-0.4); Hematocrit 39.8 % (37.0-47.0); Imm Gran Abs Auto 0.02 X10*3/uL (0.00-0.03); Imm Gran Pct Auto 0.2 % (0.0-0.4); Lymphocytes Absolute Auto 4.1 X10*3/uL (1.2-4.9); Lymphocytes Percent Auto 38.1 % (20-40); Mean Corpuscular HGB Conc 32.7 g/dl (31.0-35.0); Mean Corpuscular Hemoglobin 30.9 pg (27.0-33.0); Mean Corpuscular Volume 94.5 fL (80.0-98.0); Mean Platelet Volume 9.9 fL (9.4-12.3); Monocytes Absolute Auto 0.7 X10*3/uL (0.1-1.2); Monocytes Percent Auto 6.8 % (2-11); Neutrophils Absolute Auto 5.6 x10*3/uL (2.0-8.3); Neutrophils Percent Auto 52.5 % (45-73); Platelet Count 308 X10*3/uL (160-400); Red Blood Count 4.21 X10*6/uL (4.20-5.50); Red Cell Distribution Width 14.1 % (11.0-16.0); White Blood Count 10.7 X10*3/uL (4.8-10.8)
[2022-07-26 08:18] LABS: Alanine Aminotransferase 15 U/L (0-31); Albumin Level 4.2 g/dL (3.5-5.0); Alkaline Phosphatase 81 U/L (39-117); Anion Gap 16 (12-20); Aspartate Amino Transferase 17 U/L (5-31); Bilirubin Total 0.3 mg/dL (0.0-1.0); Blood Urea Nitrogen 14 mg/dL (9-16); Calcium 9.7 mg/dL (8.4-10.2); Carbon Dioxide 25 mmol/L (22-29); Chloride 104 mmol/L (96-108); Cholesterol 155 mg/dL; Estimated Glomerular Filt Rate > 60; Glucose Random 145 mg/dL (60-115); HDL Cholesterol 74 mg/dL; LDL Cholesterol Calculated 58 mg/dl; Magnesium 1.5 mg/dL (1.6-2.6); Potassium 4.8 mmol/L (3.3-5.1); Sodium 140 mmol/L (135-145); Total Protein 6.9 g/dL (6.5-8.0); Triglycerides 119 mg/dL
[2022-07-26 08:38] LABS: TSH reflex Free T4 2.07 uIU/mL (0.32-4.0)
== END 2022-07-26 06:06 | disposition home or self-care (01) ==
LOC: HO.LAB 06:05
PROVIDERS: PCP Internal Medicine; Referring Provider Internal Medicine Cardiovascular Disease; Visit Provider Internal Medicine
DX: E78.2 Mixed hyperlipidemia (principal); E03.9 Hypothyroidism, unspecified; I10 Essential (primary) hypertension
CPT/HCPCS: 36415; 80053; 80061; 83735; 84443; 85025

== ENCOUNTER → 2022-07-27 13:30 | Outpatient (BNVA) | payer MEDICARE, MEDICAID, SELFPAY | PROVIDERS: PCP Internal Medicine; Visit Provider Internal Medicine Cardiovascular Disease | DX: R00.2 Palpitations (principal); R06.02 Shortness of breath; R00.0 Tachycardia, unspecified; Z79.899 Other long term (current) drug therapy; Z45.018 Encounter for adjustment and management of other part of cardiac pacemaker | CPT/HCPCS: 93005; 93280; 99212 ==

== ENCOUNTER → 2022-08-06 08:53 | Outpatient (BNVA) | payer MEDICARE, MEDICAID, SELFPAY | PROVIDERS: PCP Internal Medicine; Visit Provider Internal Medicine | DX: Z86.73 Personal history of transient ischemic attack (TIA), and cerebral infarction without residual deficits (principal); Z79.01 Long term (current) use of anticoagulants; Z51.81 Encounter for therapeutic drug level monitoring | CPT/HCPCS: 85610; 99211 ==

== ENCOUNTER → 2022-08-16 08:54 | Outpatient (BNVA) | payer MEDICARE, MEDICAID, SELFPAY | PROVIDERS: PCP Internal Medicine; Visit Provider Internal Medicine | DX: Z86.73 Personal history of transient ischemic attack (TIA), and cerebral infarction without residual deficits (principal); Z79.01 Long term (current) use of anticoagulants; Z51.81 Encounter for therapeutic drug level monitoring | CPT/HCPCS: 85610; 99211 ==

== ENCOUNTER → 2022-08-20 09:05 | Outpatient (BNVA) | payer MEDICARE, MEDICAID, SELFPAY | PROVIDERS: PCP Internal Medicine; Visit Provider Internal Medicine | DX: Z86.73 Personal history of transient ischemic attack (TIA), and cerebral infarction without residual deficits (principal); Z79.01 Long term (current) use of anticoagulants; Z51.81 Encounter for therapeutic drug level monitoring | CPT/HCPCS: 85610; 99211 ==

== ENCOUNTER → 2022-08-23 08:46 | Outpatient (BNVA) | payer MEDICARE, MEDICAID, SELFPAY | PROVIDERS: PCP Internal Medicine; Visit Provider Internal Medicine | DX: Z86.73 Personal history of transient ischemic attack (TIA), and cerebral infarction without residual deficits (principal); Z79.01 Long term (current) use of anticoagulants; Z51.81 Encounter for therapeutic drug level monitoring | CPT/HCPCS: 85610; 99211 ==

== ENCOUNTER → 2022-08-27 09:01 | Outpatient (BNVA) | payer MEDICARE, MEDICAID, SELFPAY | PROVIDERS: PCP Internal Medicine; Visit Provider Internal Medicine | DX: Z86.73 Personal history of transient ischemic attack (TIA), and cerebral infarction without residual deficits (principal); Z79.01 Long term (current) use of anticoagulants; Z51.81 Encounter for therapeutic drug level monitoring | CPT/HCPCS: 85610; 99211 ==

== ENCOUNTER 2022-09-01 08:43 | Outpatient (REF) | payer MEDICARE, MEDICAID, SELFPAY ==
[2022-09-01 11:22] LABS: Cholesterol 179 mg/dL; HDL Cholesterol 86 mg/dL; LDL Cholesterol Calculated 65 mg/dl; Triglycerides 141 mg/dL
[2022-09-01 11:29] LABS: Erythrocyte Sedimentation Rate 34 MM/HR (0-20)
[2022-09-05 14:53] LABS: Anti Nuclear Antibody Screen NEGATIVE (NEGATIVE)
[2022-09-07 22:13] LABS: Smooth Muscle Antibody <20 U (<20)
== END 2022-09-01 08:44 | disposition home or self-care (01) ==
LOC: HO.LAB 08:43
PROVIDERS: Internal Medicine Cardiovascular Disease; PCP Internal Medicine; Visit Provider Internal Medicine
DX: Z86.73 Personal history of transient ischemic attack (TIA), and cerebral infarction without residual deficits (principal); Z51.81 Encounter for therapeutic drug level monitoring; Z79.01 Long term (current) use of anticoagulants; R53.83 Other fatigue; R13.10 Dysphagia, unspecified; R68.81 Early satiety; R63.4 Abnormal weight loss; R10.9 Unspecified abdominal pain; R11.0 Nausea; E78.5 Hyperlipidemia, unspecified
CPT/HCPCS: 36415; 80061; 82550; 85610; 85652; 86015; 86038; 86039; 99211; 99212

== ENCOUNTER → 2022-09-08 13:01 | Outpatient (BNVA) | payer MEDICARE, MEDICAID, SELFPAY | PROVIDERS: PCP Internal Medicine; Visit Provider Internal Medicine | DX: Z86.73 Personal history of transient ischemic attack (TIA), and cerebral infarction without residual deficits (principal); Z79.01 Long term (current) use of anticoagulants; Z51.81 Encounter for therapeutic drug level monitoring | CPT/HCPCS: 85610; 99212 ==

== ENCOUNTER → 2022-09-13 08:53 | Outpatient (BNVA) | payer MEDICARE, MEDICAID, SELFPAY | PROVIDERS: PCP Internal Medicine; Visit Provider Internal Medicine | DX: Z86.73 Personal history of transient ischemic attack (TIA), and cerebral infarction without residual deficits (principal); Z79.01 Long term (current) use of anticoagulants; Z51.81 Encounter for therapeutic drug level monitoring | CPT/HCPCS: 85610; 99211 ==

== ENCOUNTER → 2022-09-20 08:57 | Outpatient (BNVA) | payer MEDICARE, MEDICAID, SELFPAY | PROVIDERS: PCP Internal Medicine; Visit Provider Internal Medicine | DX: Z86.73 Personal history of transient ischemic attack (TIA), and cerebral infarction without residual deficits (principal); Z79.01 Long term (current) use of anticoagulants; Z51.81 Encounter for therapeutic drug level monitoring | CPT/HCPCS: 85610; 99211 ==

== ENCOUNTER 2022-09-22 09:12 | Outpatient (REF) | payer MEDICARE, MEDICAID, SELFPAY ==
--- NOTE | ~2022-09-22 | CT_ITS ---
EXAMINATION: CT ANGIOGRAPHY ABDOMEN AND PELVIS CLINICAL INFORMATION: Chronic vascular disorders of the intestine. COMPARISON: CT abdomen and pelvis 01/24/2022. TECHNIQUE: After noncontrast timing run, volumetric imaging was performed from the superior aspect of the liver through the pubic symphysis with intravenous contrast. A total of 85 mL Omnipaque 350 was utilized for this portion of the exam. Sagittal and coronal reformatted images were obtained on the technologist's workstation. Additional 2-D coronal and sagittal reformatted images and axial 3-D maximum intensity projection MIP images are generated on the CT workstation. This CT examination was performed using dose optimization techniques as appropriate, variously including the following: *Automated exposure control *Adjustment of mA and/or kV according to patient size (this includes techniques or standardized protocols for targeted exams where dose is matched to indication/reason for exam; i.e. extremities or head) *Use of iterative reconstruction technique DLP: 214 mGy-cm VASCULAR FINDINGS: Atherosclerotic changes are present in the aorta and iliofemoral vessels with marked calcification. There is some mild aneurysmal dilatation of the infrarenal abdominal aorta with maximal dimension perpendicular to a center line of about 2.5 cm. The right common iliac artery demonstrates mild fusiform dilatation at 1.2 cm. There is a [id number] area of left external iliac artery narrowing (6:441). Some mild ostial calcification is present at the celiac and SMA without significant stenosis. The PEDRO is patent. There are single renal arteries present bilaterally with mild ostial disease without significant stenosis. Portal venous system cannot be assessed as this is a CT angiogram. The IVC is of normal caliber. NONVASCULAR FINDINGS: Lung Bases: The visualized lung bases are unremarkable aside from some minimal scarring. There is reflux of contrast into the hepatic veins suggestive of elevated right-sided heart pressures. Liver, Gallbladder, and Biliary Tree: The liver is normal in size, shape, and attenuation. No focal hepatic lesion or biliary ductal dilatation is present. Status post cholecystectomy. Pancreas: Unremarkable. Spleen: Unremarkable. Adrenal Glands: The right adrenal gland appears normal. There is some mild nodularity left adrenal gland but no discrete mass. Kidneys and Ureters: The kidneys are normal in size, shape, and attenuation. No hydronephrosis, hydroureter, or calculi seen. No perinephric stranding. Bladder: Unremarkable. Gastrointestinal Tract: The small and large bowel are unremarkable aside from colonic diverticular changes most marked in the sigmoid. The appendix is not seen with certainty but there is no evidence of appendicitis. Abdominal Wall: No significant hernia is appreciated. Lymph Nodes: Normal. Pelvic Viscera: Unremarkable. Osseous Structures: Mild degenerative changes are present in the spine with mild biconvex thoracolumbar scoliosis. CT/CT angio abdomen pelvis IMPRESSION: 1. Mild dilatation of the infrarenal aorta with maximal dimension of 2.5 cm. 2. Mild fusiform dilatation right common iliac at 1.2 cm. 3. No evidence of significant mesenteric compromise with patent arterial supply. 4. [id number] left external iliac artery narrowing. 5. Reflux of contrast into the hepatic veins suggestive of elevated right-sided heart pressures. 6. Incidental note made of cholecystectomy, colonic diverticulosis and degenerative changes in the spine. Fleischner guidelines were followed.
[2022-09-22] MEDS: iohexoL 350 MG/ML 100 ML INFUS..BTL IV (10:36)
[2022-09-22 10:50] LABS: Creatinine POC 0.6 mg/dL (0.5-1.4); GFR POC 60
== END 2022-09-22 09:13 | disposition home or self-care (01) ==
LOC: HO.CT 09:12
PROVIDERS: PCP Internal Medicine; Visit Provider Internal Medicine
DX: K55.1 Chronic vascular disorders of intestine (principal)
CPT/HCPCS: 74174; 82565; Q9967

== ENCOUNTER → 2022-09-27 08:56 | Outpatient (BNVA) | payer MEDICARE, MEDICAID, SELFPAY | PROVIDERS: PCP Internal Medicine; Visit Provider Internal Medicine | DX: Z45.018 Encounter for adjustment and management of other part of cardiac pacemaker (principal); Q21.12 Patent foramen ovale; Z86.73 Personal history of transient ischemic attack (TIA), and cerebral infarction without residual deficits; Z79.01 Long term (current) use of anticoagulants; Z51.81 Encounter for therapeutic drug level monitoring | CPT/HCPCS: 85610; 93280; 99211; 99212 ==

== ENCOUNTER → 2022-09-30 13:38 | Outpatient (REF) | payer MEDICARE, MEDICAID, SELFPAY ==
--- NOTE | 2022-09-30 13:43 | CA_ITS ---
Transthoracic Echocardiogram Patient (Last, First, Middle): Diane Looney E Gender: Female Date of : 1955 Age: 67 Procedure Date: 09/30/2022 Procedure Type: Transthoracic Echocardiogram Location: OP Height: 152.4 cm Weight: 54.43 kg BSA: 1.50 m2 Heart Rate: 85 bpm BP: 145 / 77 mmHg Meter Calibrator: YUNIER Referring MD: Raad Chisholm MD Chain Repairer: Raad Chisholm MD Symptoms: Q21.1 - Atrial septal defect Study Quality: Fair but adequate ECG Rhythm: Sinus Conclusions: - 1. Normal LV systolic function with grade 1 diastolic dysfunction 2. Normal cardiac valvular Doppler 3. Normal RV systolic pressure 4. No gross pericardial effusion Findings Procedure Information The quality of the study was fair. The study quality is limited by lung artifact. Left Ventricle Normal left ventricular size, thickness, and systolic function. The visually estimated ejection fraction is between 55-60%. Spectral Doppler is indicative of an impaired relaxation filling pattern. E/E prime ratio is <8, consistent with normal filling pressures. Right Ventricle Normal right ventricular cavity size and systolic function. Atria Both atria are normal in size. Aortic Valve The aortic valve structure and function is likely normal. There is no aortic valve stenosis. There is no aortic valve regurgitation. Mitral Valve Normal mitral valve structure and function. There is mild mitral annular calcification. There is trace mitral valve regurgitation. There is no mitral valve stenosis. Pulmonic Valve The pulmonic valve was not well visualized. Tricuspid Valve Likely normal tricuspid valve structure and function. There is trace tricuspid valve regurgitation. The right ventricular systolic pressure is normal. The right ventricular systolic pressure is 24 mmHg. Normal right atrial pressure. There is no evidence of pulmonary hypertension. Great Vessels All visible segments of the aorta are normal in size. The pulmonary artery was not well visualized. Venous The inferior vena cava is normal in size and collapses greater than 50% with inspiration. Pericardium/Pleural There is no evidence of pericardial effusion. Prior Study Comparison No significant change compared to prior study dated: 09/20/2019. Measurements 2D Linear Measurements IVSd: 0.74 0.6-0.9/0.6-1.0 cm LVIDd: 4.07 3.9-5.3/4.2-5.9 cm LVIDd Index: 2.71 2.4-3.2/2.2-3.1 cm/m2 LVIDs: 2.82 2.0-3.6 cm LVPWd: 0.54 0.7-1.1 cm LA Diam: 2.80 2.7-3.8/3.0-4.0 cm LAIDs Index: 1.87 1.5-2.3 cm/m2 LV Mass: 88.96 67-162/88-224 g LV Mass Index: 59.31 43-95/49-115 g/m2 LVOT Diam: 1.90 3.0+(-)1.3 cm 2D Systolic Function EF 4C: 53.50 >55% EF 2C: 59.40 >55% EF BiP: 56.90 >55% Mitral Valve MV Pk E: 0.78 MV PK A: 0.92 MV Decel Time: 91.00 E/A: 0.80 E'Lateral: 9.36 E'Medial: 7.94 E/E' Med: 9.80 E/E' Lat: 8.30 PHT: 27.00 MVA PHT: 8.15 Decel Limestone: 8.56 Aortic Valve AoV Pk Nils: 0.96 AoV Pk Grad: 4.00 MAJOR: 2.18 LVOT LVOT Pk Nils: 0.76 LVOT Mn Nils: 0.51 LVOT VTI: 0.17 LVOT Pk Grad: 2.00 LVOT Mn Grad: 1.00 LVOT Diam: 1.90 LVOT Area: 2.84 Diastolic Function MV Pk E: 0.78 MV Pk A: 0.92 E/A: 0.80 E'Medial: 7.94 E/E' Med: 9.80 E' Laterial: 9.36 E/E' Lat: 8.30 Right Ventricle TAPSE (mm): 19.60 TVS' Nils: 12.90 Tricuspid Valve TR Pk Nils: 2.27 TR Pk Grad: 21.00 RA Press: 3.00 RVSP: 24.00 Great Vessels Aorta Sinus of Valsalva: 3.10 2.0-3.5 cm Ao Asc: 2.50 2.1-3.4 cm Ao Arch: 3.40 Pulmonary Valve PV Pk Nils: 0.80 Peak PV Grad: 3.00 Shunting QP:QS: 0.40 Updated in Other Vendor System with Status of Final Raad Chisholm MD electronically signed on 09/30/2022 4:03:03 PM with status of Final
== END ==
LOC: HO.CARD 13:38
PROVIDERS: PCP Internal Medicine Cardiovascular Disease; Visit Provider Internal Medicine Cardiovascular Disease
DX: Q21.10 Atrial septal defect, unspecified (principal)
CPT/HCPCS: 93306

== ENCOUNTER → 2022-10-07 08:39 | Outpatient (BNVA) | payer MEDICARE, MEDICAID, SELFPAY | PROVIDERS: PCP Internal Medicine Cardiovascular Disease; Visit Provider Internal Medicine | DX: Z86.73 Personal history of transient ischemic attack (TIA), and cerebral infarction without residual deficits (principal); Z79.01 Long term (current) use of anticoagulants; Z51.81 Encounter for therapeutic drug level monitoring | CPT/HCPCS: 85610; 99211 ==

== ENCOUNTER → 2022-10-21 09:21 | Outpatient (BNVA) | payer MEDICARE, MEDICAID, SELFPAY | PROVIDERS: PCP Internal Medicine Cardiovascular Disease; Visit Provider Internal Medicine | DX: Z86.73 Personal history of transient ischemic attack (TIA), and cerebral infarction without residual deficits (principal); Z79.01 Long term (current) use of anticoagulants; Z51.81 Encounter for therapeutic drug level monitoring | CPT/HCPCS: 85610; 99211 ==

== ENCOUNTER → 2022-10-28 08:49 | Outpatient (BNVA) | payer MEDICARE, MEDICAID, SELFPAY | PROVIDERS: PCP Internal Medicine Cardiovascular Disease; Visit Provider Internal Medicine | DX: Z86.718 Personal history of other venous thrombosis and embolism (principal); Z51.81 Encounter for therapeutic drug level monitoring; Z79.01 Long term (current) use of anticoagulants | CPT/HCPCS: 85610; 99211 ==

== ENCOUNTER → 2022-11-11 09:22 | Outpatient (BNVA) | payer MEDICARE, MEDICAID, SELFPAY | PROVIDERS: PCP Internal Medicine Cardiovascular Disease; Visit Provider Internal Medicine | DX: Z86.73 Personal history of transient ischemic attack (TIA), and cerebral infarction without residual deficits (principal); Z79.01 Long term (current) use of anticoagulants; Z51.81 Encounter for therapeutic drug level monitoring | CPT/HCPCS: 85610; 99211 ==

== ENCOUNTER → 2022-11-23 09:04 | Outpatient (BNVA) | payer MEDICARE, MEDICAID, SELFPAY | PROVIDERS: PCP Internal Medicine Cardiovascular Disease; Visit Provider Internal Medicine | DX: Z86.73 Personal history of transient ischemic attack (TIA), and cerebral infarction without residual deficits (principal); Z79.01 Long term (current) use of anticoagulants; Z51.81 Encounter for therapeutic drug level monitoring | CPT/HCPCS: 85610; 99211 ==

== ENCOUNTER 2022-11-27 08:37 | Outpatient (REF) | payer MEDICARE, MEDICAID, SELFPAY ==
--- NOTE | ~2022-11-27 | MM_ITS ---
EXAMINATION: MM SCREENING DIGITAL BREAST TOMOSYNTHESIS, BILATERAL CLINICAL INFORMATION: Screening. Asymptomatic. The lifetime risk of breast cancer based on the Tyrer-Cuzick Model is 8%. COMPARISON: Mammography: 11/14/2021, 11/13/2020, 08/20/2019 TECHNIQUE: Digital breast tomosynthesis is performed in both the craniocaudal and mediolateral oblique views along with computer-aided detection (CAD). Synthesized 2D images are generated from the tomosynthesis. Additional right CC view is provided. FINDINGS: There are scattered areas of fibroglandular density (ACR BI-RADS breast composition Category b). There are no significant masses, abnormal calcifications, or other abnormalities. No architectural abnormality or developing density or significant change from prior studies. There is a pacemaker generator partially overlying posterior upper left axilla on MLO view. MM/MM tomosynthesis screening BI IMPRESSION: No mammographic evidence of malignancy. ASSESSMENT: BI-RADS 1: Negative RECOMMENDATION: Routine annual mammography screening. This patient's information was entered into a reminder system with a target due date for their next mammogram.
== END 2022-11-27 08:38 | disposition home or self-care (01) ==
LOC: HO.MAMMO 08:37
PROVIDERS: PCP Internal Medicine; Visit Provider Internal Medicine
DX: Z12.31 Encounter for screening mammogram for malignant neoplasm of breast (principal)
CPT/HCPCS: 77063; 77067

== ENCOUNTER → 2022-12-07 09:16 | Outpatient (BNVA) | payer MEDICARE, MEDICAID, SELFPAY | PROVIDERS: PCP Internal Medicine; Visit Provider Internal Medicine | DX: Z86.73 Personal history of transient ischemic attack (TIA), and cerebral infarction without residual deficits (principal); Z79.01 Long term (current) use of anticoagulants; Z51.81 Encounter for therapeutic drug level monitoring | CPT/HCPCS: 85610; 99211 ==

== ENCOUNTER 2022-12-20 06:11 | Outpatient (REF) | payer MEDICARE, MEDICAID, SELFPAY ==
[2022-12-20 06:29] LABS: MANUAL DIFF FLAG NO
[2022-12-20 07:31] LABS: Basophils Absolute Auto 0.1 X10*3/uL (0.0-0.2); Basophils Percent Auto 0.6 % (0-2); Eosinophils Absolute Auto 0.2 X10*3/uL (0.0-0.4); Eosinophils Percent Auto 2.4 % (0-4); Hematocrit 41.9 % (37.0-47.0); Hemoglobin 13.5 g/dl (12.0-16.0); Imm Gran Abs Auto 0.01 X10*3/uL (0.00-0.03); Imm Gran Pct Auto 0.1 % (0.0-0.4); Lymphocytes Absolute Auto 3.8 X10*3/uL (1.2-4.9); Lymphocytes Percent Auto 42.4 % (20-40); Mean Corpuscular HGB Conc 32.2 g/dl (31.0-35.0); Mean Corpuscular Hemoglobin 30.5 pg (27.0-33.0); Mean Corpuscular Volume 94.6 fL (80.0-98.0); Mean Platelet Volume 9.4 fL (9.4-12.3); Monocytes Percent Auto 10.8 % (2-11); Neutrophils Absolute Auto 3.9 x10*3/uL (2.0-8.3); Neutrophils Percent Auto 43.7 % (45-73); Platelet Count 284 X10*3/uL (160-400); Red Blood Count 4.43 X10*6/uL (4.20-5.50); Red Cell Distribution Width 14.6 % (11.0-16.0); White Blood Count 8.9 X10*3/uL (4.8-10.8)
[2022-12-20 07:48] LABS: Estimated Average Glucose 137 mg/dL; Hemoglobin A1c % 6.4 %
[2022-12-20 08:22] LABS: Alanine Aminotransferase 15 U/L (0-31); Albumin Level 4.1 g/dL (3.5-5.0); Alkaline Phosphatase 87 U/L (39-117); Anion Gap 14 (12-20); Aspartate Amino Transferase 17 U/L (5-31); Bilirubin Total 0.3 mg/dL (0.0-1.0); Blood Urea Nitrogen 14 mg/dL (9-16); Calcium 9.5 mg/dL (8.4-10.2); Carbon Dioxide 29 mmol/L (22-29); Chloride 106 mmol/L (96-108); Cholesterol 145 mg/dL; Estimated Glomerular Filt Rate > 60; Glucose Random 146 mg/dL (60-115); HDL Cholesterol 73 mg/dL; LDL Cholesterol Calculated 62 mg/dl; Magnesium 1.6 mg/dL (1.6-2.6); Potassium 4.7 mmol/L (3.3-5.1); Sodium 144 mmol/L (135-145); Total Protein 6.8 g/dL (6.5-8.0); Triglycerides 54 mg/dL
[2022-12-20 08:31] LABS: Free T4 (Free Thyroxine) 0.88 ng/dL (0.71-1.85); Thyroid Stimulating Hormone 3.29 uIU/mL (0.32-4.0)
== END 2022-12-20 06:12 | disposition home or self-care (01) ==
LOC: HO.LAB 06:11
PROVIDERS: PCP Internal Medicine; Visit Provider Internal Medicine
DX: E11.9 Type 2 diabetes mellitus without complications (principal); E83.42 Hypomagnesemia; R53.82 Chronic fatigue, unspecified; I10 Essential (primary) hypertension; E78.2 Mixed hyperlipidemia; E03.9 Hypothyroidism, unspecified
CPT/HCPCS: 36415; 80053; 80061; 83036; 83735; 84439; 84443; 85025

== ENCOUNTER → 2022-12-21 08:54 | Outpatient (BNVA) | payer MEDICARE, MEDICAID, SELFPAY | PROVIDERS: PCP Internal Medicine; Visit Provider Internal Medicine | DX: Z86.73 Personal history of transient ischemic attack (TIA), and cerebral infarction without residual deficits (principal); Z79.01 Long term (current) use of anticoagulants; Z51.81 Encounter for therapeutic drug level monitoring | CPT/HCPCS: 85610; 99211 ==

== ENCOUNTER → 2022-12-24 08:55 | Outpatient (BNVA) | payer MEDICARE, MEDICAID, SELFPAY | PROVIDERS: PCP Internal Medicine; Visit Provider Internal Medicine | DX: Z86.73 Personal history of transient ischemic attack (TIA), and cerebral infarction without residual deficits (principal); Z79.01 Long term (current) use of anticoagulants; Z51.81 Encounter for therapeutic drug level monitoring | CPT/HCPCS: 85610; 99211 ==

== ENCOUNTER → 2022-12-31 08:56 | Outpatient (BNVA) | payer MEDICARE, MEDICAID, SELFPAY | PROVIDERS: PCP Internal Medicine; Visit Provider Internal Medicine | DX: Z86.73 Personal history of transient ischemic attack (TIA), and cerebral infarction without residual deficits (principal); Z79.01 Long term (current) use of anticoagulants; Z51.81 Encounter for therapeutic drug level monitoring | CPT/HCPCS: 85610; 99211 ==

== ENCOUNTER → 2023-01-10 09:02 | Outpatient (BNVA) | payer MEDICARE, MEDICAID, SELFPAY | PROVIDERS: PCP Internal Medicine; Visit Provider Internal Medicine | DX: Z86.73 Personal history of transient ischemic attack (TIA), and cerebral infarction without residual deficits (principal); Z51.81 Encounter for therapeutic drug level monitoring; Z79.01 Long term (current) use of anticoagulants | CPT/HCPCS: 85610; 99211 ==

== ENCOUNTER 2023-01-24 08:58 | Outpatient (AMB) | payer MEDICARE, MEDICAID, SELFPAY ==
--- NOTE | 2023-01-24 09:15 | MHC.OFFVISCO ---
Intake Intake Visit Reasons: Anticoagulation Allergies vancomycin [VANCOMYCIN] Allergy (Intermediate, Verified 01/24/23 09:08) ITCHING/RASH metoclopramide [From Reglan] Adverse Reaction (Intermediate, Verified 01/24/23 09:08) Nausea and Vomiting Medication List - Last Reconciled 01/24/23 by Vonda Cam RN albuterol sulfate 90 mcg/actuation 2 puffs inhalation Q4H PRN albuterol sulfate 2.5 mg inhalation Q8H PRN amlodipine 5 mg PO DAILY atorvastatin 40 mg PO DAILY azithromycin 250 mg PO 3XW blood sugar diagnostic As directed cholecalciferol (vitamin D3) 25 mcg PO DAILY ezetimibe 10 mg PO DAILY fluticasone furoate-vilanterol 200-25 mcg/dose 1 inh inhalation DAILY food supplemt, lactose-reduced (Boost) PO hydrocortisone 2.5% appl topical magnesium oxide 400 mg PO DAILY metformin ER 1,000 mg PO BIDWM metoprolol succinate ER (Toprol XL) 50 mg PO DAILY mupirocin 2% topical BID ondansetron HCl 8 mg PO Q12H PRN oxcarbazepine 300 mg PO BID oxycodone 5 mg PO BEDTIME pramipexole 0.5 mg PO BEDTIME PRN umeclidinium 62.5 mcg/actuation (Incruse Ellipta) 1 inh inhalation DAILY warfarin 5 mg See Protocol PO DIRECTED Nursing Note INR: 2.2 in therapeutic range Medications and supplements reviewed No changes in health, diet, medications, or supplements, Denies any signs and symptoms of bleeding or bruising or clotting. Bleeding, bruising, clotting discussed Nutritional guidance given: EAT A MIX OF WHAT YOU CAN TOLERATE Dose: KEEP SAME 5MG X 1 DAY/ 7.5MG X 6 DAYS F/U INR: 2 WEEKS TO CORRDINATE WITH VACATION TIME - LEAVING [place] 02/24/23 Patient verbalizes understanding of instructions given Anti-Coag Initial Assessment Social Hx Patient Tobacco Use Status: Current everyday Tobacco user Tobacco use type: Cigarette alcohol intake: never Coding Level of Care Code Est Patient Level 1 Diagnoses Current use of anticoagulant therapy Z79.01 Assessment & Plan Assessment & Plan (1) Current use of anticoagulant therapy: Onset Date: ~2019 Comment: (due to Stroke with PFO and factor 5 leiden) 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
== END 2023-01-24 10:22 | disposition home or self-care (01) ==
LOC: HO.ACS 08:58
PROVIDERS: PCP Internal Medicine; Visit Provider Internal Medicine
DX: Z79.01 Long term (current) use of anticoagulants (principal)

== ENCOUNTER → 2023-01-24 08:58 | Outpatient (BNVA) | payer MEDICARE, MEDICAID, SELFPAY | PROVIDERS: PCP Internal Medicine; Visit Provider Internal Medicine | DX: Z86.73 Personal history of transient ischemic attack (TIA), and cerebral infarction without residual deficits (principal); Z79.01 Long term (current) use of anticoagulants; Z51.81 Encounter for therapeutic drug level monitoring | CPT/HCPCS: 85610; 99211 ==

== ENCOUNTER 2023-02-07 08:55 | Outpatient (AMB) | payer MEDICARE, MEDICAID, SELFPAY ==
--- NOTE | 2023-02-07 09:07 | MHC.OFFVISCO ---
Intake Intake Visit Reasons: Anticoagulation Allergies vancomycin [VANCOMYCIN] Allergy (Intermediate, Verified 02/07/23 09:03) ITCHING/RASH metoclopramide [From Reglan] Adverse Reaction (Intermediate, Verified 02/07/23 09:03) Nausea and Vomiting Medication List - Last Reconciled 02/07/23 by Anny Orta RN albuterol sulfate 90 mcg/actuation 2 puffs inhalation Q4H PRN albuterol sulfate 2.5 mg inhalation Q8H PRN amlodipine 5 mg PO DAILY atorvastatin 40 mg PO DAILY azithromycin 250 mg PO 3XW blood sugar diagnostic As directed cholecalciferol (vitamin D3) 25 mcg PO DAILY ezetimibe 10 mg PO DAILY fluticasone furoate-vilanterol 200-25 mcg/dose 1 inh inhalation DAILY food supplemt, lactose-reduced (Boost) PO hydrocortisone 2.5% appl topical magnesium oxide 400 mg PO DAILY metformin ER 1,000 mg PO BIDWM metoprolol succinate ER (Toprol XL) 50 mg PO DAILY mupirocin 2% topical BID ondansetron HCl 8 mg PO Q12H PRN oxcarbazepine 300 mg PO BID oxycodone 5 mg PO BEDTIME pramipexole 0.5 mg PO BEDTIME PRN umeclidinium 62.5 mcg/actuation (Incruse Ellipta) 1 inh inhalation DAILY warfarin 5 mg See Protocol PO DIRECTED Nursing Note INR: 2.6- in therapeutic range Medications and supplements reviewed-no changes No changes in health, diet, medications, or supplements, Denies any signs and symptoms of bleeding or bruising or clotting. Bleeding, bruising, clotting discussed Nutritional guidance given Dose: 5mg x 1, 7.5mg x 6 F/U INR: 02/21/23 Patient verbalizes understanding of instructions given Anti-Coag Initial Assessment Social Hx Patient Tobacco Use Status: Current everyday Tobacco user Tobacco use type: Cigarette alcohol intake: never Coding Level of Care Code Est Patient Level 1 Diagnoses Current use of anticoagulant therapy Z79.01 Assessment & Plan Assessment & Plan (1) Current use of anticoagulant therapy: Onset Date: ~2019 Comment: (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
[2023-02-07 09:08] LABS: Prothrombin Time Whole Bld POC 31.1 sec (11.1-13.5); ~PT, ~INR - Anti Coag Clinic 2.6 (0.9-1.1)
== END 2023-02-07 09:15 | disposition home or self-care (01) ==
LOC: HO.ACS 08:55
PROVIDERS: PCP Internal Medicine; Visit Provider Internal Medicine
DX: Z79.01 Long term (current) use of anticoagulants (principal)

== ENCOUNTER → 2023-02-07 08:55 | Outpatient (BNVA) | payer MEDICARE, MEDICAID, SELFPAY | PROVIDERS: PCP Internal Medicine; Visit Provider Internal Medicine | DX: Z86.73 Personal history of transient ischemic attack (TIA), and cerebral infarction without residual deficits (principal); Z51.81 Encounter for therapeutic drug level monitoring; Z79.01 Long term (current) use of anticoagulants | CPT/HCPCS: 85610; 99211 ==

== ENCOUNTER 2023-02-21 08:49 | Outpatient (AMB) | payer MEDICARE, MEDICAID, SELFPAY ==
--- NOTE | 2023-02-21 09:11 | MHC.OFFVISCO ---
Intake Intake Visit Reasons: Anticoagulation Allergies vancomycin [VANCOMYCIN] Allergy (Intermediate, Verified 02/21/23 09:07) ITCHING/RASH metoclopramide [From Reglan] Adverse Reaction (Intermediate, Verified 02/21/23 09:07) Nausea and Vomiting Medication List - Last Reconciled 02/21/23 by Anny Orta RN albuterol sulfate 90 mcg/actuation 2 puffs inhalation Q4H PRN albuterol sulfate 2.5 mg inhalation Q8H PRN amlodipine 5 mg PO DAILY atorvastatin 40 mg PO DAILY azithromycin 250 mg PO 3XW blood sugar diagnostic As directed cholecalciferol (vitamin D3) 25 mcg PO DAILY ezetimibe 10 mg PO DAILY fluticasone furoate-vilanterol 200-25 mcg/dose 1 inh inhalation DAILY food supplemt, lactose-reduced (Boost) PO hydrocortisone 2.5% appl topical magnesium oxide 400 mg PO DAILY metformin ER 1,000 mg PO BIDWM metoprolol succinate ER (Toprol XL) 50 mg PO DAILY mupirocin 2% topical BID ondansetron HCl 8 mg PO Q12H PRN oxcarbazepine 300 mg PO BID oxycodone 5 mg PO BEDTIME pramipexole 0.5 mg PO BEDTIME PRN umeclidinium 62.5 mcg/actuation (Incruse Ellipta) 1 inh inhalation DAILY warfarin 5 mg See Protocol PO DIRECTED Nursing Note INR: 2.4- in therapeutic range Medications and supplements reviewed- no changes No changes in health, diet, medications, or supplements, Denies any signs and symptoms of bleeding or bruising or clotting. Bleeding, bruising, clotting discussed Nutritional guidance given Dose: 5mg x 1. 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
[2023-02-21 09:12] LABS: Prothrombin Time Whole Bld POC 28.9 sec (11.1-13.5); ~PT, ~INR - Anti Coag Clinic 2.4 (0.9-1.1)
== END 2023-02-21 09:17 | disposition home or self-care (01) ==
LOC: HO.ACS 08:49
PROVIDERS: PCP Internal Medicine; Visit Provider Internal Medicine
DX: Z79.01 Long term (current) use of anticoagulants (principal)

== ENCOUNTER → 2023-02-21 08:49 | Outpatient (BNVA) | payer MEDICARE, MEDICAID, SELFPAY | PROVIDERS: PCP Internal Medicine; Visit Provider Internal Medicine | DX: Z86.718 Personal history of other venous thrombosis and embolism (principal); Z79.01 Long term (current) use of anticoagulants; Z51.81 Encounter for therapeutic drug level monitoring | CPT/HCPCS: 85610; 99211 ==

== ENCOUNTER → 2023-03-02 23:59 | Outpatient (BNV) | payer MEDICARE, MEDICAID, SELFPAY ==
--- NOTE | 2023-03-03 10:39 | MHC.OFFVIS ---
Intake Intake Visit Reasons: Remote Device Check- [employer] Allergies vancomycin [VANCOMYCIN] Allergy (Intermediate, Verified 02/21/23 09:07) ITCHING/RASH metoclopramide [From Reglan] Adverse Reaction (Intermediate, Verified 02/21/23 09:07) Nausea and Vomiting PFSH Medical History COPD (chronic obstructive pulmonary disease) Current use of anticoagulant therapy (~2019) Factor 5 Leiden mutation, heterozygous History of colon polyps (~2009) History of CVA (cerebrovascular accident) (~2019) HTN (hypertension) Hyperlipidemia Obstructive sleep apnea on CPAP (~2008) Osteopenia (~2018) Pacemaker (~2021) Personal history of nicotine dependence PFO (patent foramen ovale) (~2019) Type II diabetes mellitus, well controlled Surgical History History of bladder surgery (~1999) History of cholecystectomy (~2000) History of colonoscopy History of esophagogastroduodenoscopy (EGD) History of pacemaker (~2021) History of unilateral oophorectomy Hx of blepharoplasty Hx of cystoscopy Family History Mother Stroke Multiple sclerosis Diabetes Father CAD (coronary artery disease) Social History Alcohol intake: never Patient Tobacco Use Status: Current everyday Tobacco user Tobacco use type: Cigarette Cigarettes Per Day: 5 Years Smoked: 40 +/- e-Cigarette/Vaping Use: Currently Using service: No Current occupational status: retired Office Procedures Cardiac Device Check Cardiac Device Check Details: Remote pacemaker report generated 03/02/2023. Pacemaker function is adequate. Noted high ventricular rate are more consistent with SVT or sinus tachycardia. 12832-Eohoyf Cardiac Device Interrogation, pacemaker Procedure code (CPT) selection complete Coding Level of Care Code Procedure Only Diagnoses CPT Codes Cardiac Device Check - Cardiac Device 12: 12201-[place] Cardiac Device Interrogation, pacemaker ([id number])
== END ==
PROVIDERS: PCP Internal Medicine; Visit Provider Internal Medicine Cardiovascular Disease
DX: I45.5 Other specified heart block (principal)
CPT/HCPCS: 93294

== ENCOUNTER 2023-03-07 08:56 | Outpatient (AMB) | payer MEDICARE, MEDICAID, SELFPAY ==
[2023-03-07 09:31] LABS: Prothrombin Time Whole Bld POC 15.6 sec (11.1-13.5); ~PT, ~INR - Anti Coag Clinic 1.3 (0.9-1.1)
--- NOTE | 2023-03-07 09:37 | MHC.OFFVISCO ---
Intake Intake Visit Reasons: Anticoagulation Allergies vancomycin [VANCOMYCIN] Allergy (Intermediate, Verified 03/07/23 09:26) ITCHING/RASH metoclopramide [From Reglan] Adverse Reaction (Intermediate, Verified 03/07/23 09:26) Nausea and Vomiting Medication List - Last Reconciled 03/07/23 by Vonda Cam RN albuterol sulfate 90 mcg/actuation 2 puffs inhalation Q4H PRN albuterol sulfate 2.5 mg inhalation Q8H PRN amlodipine 10 mg PO DAILY atorvastatin 40 mg PO DAILY azithromycin 250 mg PO 3XW blood sugar diagnostic As directed cholecalciferol (vitamin D3) 25 mcg PO DAILY ezetimibe 10 mg PO DAILY fluticasone furoate-vilanterol 200-25 mcg/dose 1 inh inhalation DAILY food supplemt, lactose-reduced (Boost) PO hydrocortisone 2.5% appl topical magnesium oxide 400 mg PO DAILY metformin ER 1,000 mg PO BIDWM metoprolol succinate ER (Toprol XL) 50 mg PO DAILY mupirocin 2% topical BID ondansetron HCl 8 mg PO Q12H PRN oxcarbazepine 300 mg PO BID oxycodone 5 mg PO BEDTIME pramipexole 0.5 mg PO BEDTIME PRN umeclidinium 62.5 mcg/actuation (Incruse Ellipta) 1 inh inhalation DAILY warfarin 5 mg See Protocol PO DIRECTED Nursing Note INR: 1.3 OUT OF therapeutic range Medications and supplements reviewed WAS AWAY AT THE [place] FOR A WEEK ([facility]) DID NOT FEEL WELL TIERED AND BACK PAIN, ENC TO TEST FOR COVID- SHE STATED SHE WOULD Denies any signs and symptoms of bleeding or bruising or clotting. Bleeding, bruising, clotting discussed Nutritional guidance given - AVOID ALL GREENS, EAT ORANGE AND REDS Dose: 10 MG TODAY 7.5MG TUE AND TUE AND RECHECK TUESDAY F/U INR: 03/10/23 Patient verbalizes understanding of instructions given CALL TO PCP SPOKE WITH NURSE TRIAGE LINE REGARDING PT STATUS PLAN OF CARE TO CONVEY TO PCP AND NEXT F/U APPT Anti-Coag Initial Assessment Social Hx Patient Tobacco Use Status: Current everyday Tobacco user Tobacco use type: Cigarette alcohol intake: never Coding Level of Care Code Est Patient Level 1 Diagnoses Current use of anticoagulant therapy Z79.01 Comment REPORT VINCENT WALTER MD Assessment & Plan Assessment & Plan (1) Current use of anticoagulant therapy: Onset Date: ~2019 Comment: (due to Stroke with PFO and factor 5 leiden) Code(s): Z79.01 - skilled nursing (current) use of anticoagulants Category: Medical
== END 2023-03-07 09:46 | disposition home or self-care (01) ==
LOC: HO.ACS 08:56
PROVIDERS: PCP Internal Medicine; Visit Provider Internal Medicine
DX: Z79.01 Long term (current) use of anticoagulants (principal)

== ENCOUNTER → 2023-03-07 08:56 | Outpatient (BNVA) | payer MEDICARE, MEDICAID, SELFPAY | PROVIDERS: PCP Internal Medicine; Visit Provider Internal Medicine | DX: Z86.73 Personal history of transient ischemic attack (TIA), and cerebral infarction without residual deficits (principal); Z79.01 Long term (current) use of anticoagulants; Z51.81 Encounter for therapeutic drug level monitoring | CPT/HCPCS: 85610; 99211 ==

== ENCOUNTER 2023-03-10 09:04 | Outpatient (AMB) | payer MEDICARE, MEDICAID, SELFPAY ==
--- NOTE | 2023-03-10 09:17 | MHC.OFFVISCO ---
Intake Intake Visit Reasons: Anticoagulation Allergies vancomycin [VANCOMYCIN] Allergy (Intermediate, Verified 03/10/23 09:13) ITCHING/RASH metoclopramide [From Reglan] Adverse Reaction (Intermediate, Verified 03/10/23 09:13) Nausea and Vomiting Medication List - Last Reconciled 03/10/23 by Anny Orta RN albuterol sulfate 90 mcg/actuation 2 puffs inhalation Q4H PRN albuterol sulfate 2.5 mg inhalation Q8H PRN amlodipine 10 mg PO DAILY atorvastatin 40 mg PO DAILY azithromycin 250 mg PO 3XW blood sugar diagnostic As directed cholecalciferol (vitamin D3) 25 mcg PO DAILY ezetimibe 10 mg PO DAILY fluticasone furoate-vilanterol 200-25 mcg/dose 1 inh inhalation DAILY food supplemt, lactose-reduced (Boost) PO hydrocortisone 2.5% appl topical magnesium oxide 400 mg PO DAILY metformin ER 1,000 mg PO BIDWM metoprolol succinate ER (Toprol XL) 50 mg PO DAILY mupirocin 2% topical BID ondansetron HCl 8 mg PO Q12H PRN oxcarbazepine 300 mg PO BID oxycodone 5 mg PO BEDTIME pramipexole 0.5 mg PO BEDTIME PRN umeclidinium 62.5 mcg/actuation (Incruse Ellipta) 1 inh inhalation DAILY warfarin 5 mg See Protocol PO DIRECTED Nursing Note INR 1.7-? out of therapeutic range Medications and supplements reviewed Patient status: no c.o Medications or supplements: states recent increase in amlodipine Diet: same Denies any signs and symptoms of bleeding or clotting or unusual bruising Bleeding, bruising, clotting discussed Nutritional guidance given: no greens for 2 days, eat reds to raise Dose: 10mg today then cont 7.5mg x 6, 5mg x 1 F/U INR Date : tue03/16/23 Patient verbalizing understanding of instructions given. 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
[2023-03-10 09:18] LABS: Prothrombin Time Whole Bld POC 20.4 sec (11.1-13.5); ~PT, ~INR - Anti Coag Clinic 1.7 (0.9-1.1)
== END 2023-03-10 09:22 | disposition home or self-care (01) ==
LOC: HO.ACS 09:04
PROVIDERS: PCP Internal Medicine; Visit Provider Internal Medicine
DX: Z79.01 Long term (current) use of anticoagulants (principal)

== ENCOUNTER → 2023-03-10 09:04 | Outpatient (BNVA) | payer MEDICARE, MEDICAID, SELFPAY | PROVIDERS: PCP Internal Medicine; Visit Provider Internal Medicine | DX: Z86.73 Personal history of transient ischemic attack (TIA), and cerebral infarction without residual deficits (principal); Z51.81 Encounter for therapeutic drug level monitoring; Z79.01 Long term (current) use of anticoagulants | CPT/HCPCS: 85610; 99211 ==

== ENCOUNTER 2023-03-16 08:55 | Outpatient (AMB) | payer MEDICARE, MEDICAID, SELFPAY ==
[2023-03-16 09:25] LABS: ~PT, ~INR - Anti Coag Clinic 2.7 (0.9-1.1)
--- NOTE | 2023-03-16 09:34 | MHC.OFFVISCO ---
Intake Intake Visit Reasons: Anticoagulation Allergies vancomycin [VANCOMYCIN] Allergy (Intermediate, Verified 03/16/23 09:19) ITCHING/RASH metoclopramide [From Reglan] Adverse Reaction (Intermediate, Verified 03/16/23 09:19) Nausea and Vomiting Medication List - Last Reconciled 03/16/23 by Dianna Vazquez RN albuterol sulfate 90 mcg/actuation 2 puffs inhalation Q4H PRN albuterol sulfate 2.5 mg inhalation Q8H PRN amlodipine 10 mg PO DAILY atorvastatin 40 mg PO DAILY azithromycin 250 mg PO 3XW blood sugar diagnostic As directed cholecalciferol (vitamin D3) 25 mcg PO DAILY ezetimibe 10 mg PO DAILY fluticasone furoate-vilanterol 200-25 mcg/dose 1 inh inhalation DAILY food supplemt, lactose-reduced (Boost) PO hydrocortisone 2.5% appl topical magnesium oxide 400 mg PO DAILY metformin ER 1,000 mg PO BIDWM metoprolol succinate ER (Toprol XL) 50 mg PO DAILY mupirocin 2% topical BID ondansetron HCl 8 mg PO Q12H PRN oxcarbazepine 300 mg PO BID oxycodone 5 mg PO BEDTIME pramipexole 0.5 mg PO BEDTIME PRN umeclidinium 62.5 mcg/actuation (Incruse Ellipta) 1 inh inhalation DAILY warfarin 5 mg See Protocol PO DIRECTED Nursing Note NO CP,SOB,DIET/MED CHANGES,FALLS OR SX OF BLEEDING. CONTINUE PRESENT DOSE AND FOLLOW-UP IN 2 WEEKS. GOOD UNDERSTANDING OF DOSING INSTR. 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
== END 2023-03-16 09:38 | disposition home or self-care (01) ==
LOC: HO.ACS 08:55
PROVIDERS: PCP Internal Medicine; Visit Provider Internal Medicine
DX: Z79.01 Long term (current) use of anticoagulants (principal)

== ENCOUNTER → 2023-03-16 08:55 | Outpatient (BNVA) | payer MEDICARE, MEDICAID, SELFPAY | PROVIDERS: PCP Internal Medicine; Visit Provider Internal Medicine | DX: Z86.73 Personal history of transient ischemic attack (TIA), and cerebral infarction without residual deficits (principal); Z79.01 Long term (current) use of anticoagulants; Z51.81 Encounter for therapeutic drug level monitoring | CPT/HCPCS: 85610; 99211 ==

== ENCOUNTER 2023-03-30 09:50 | Outpatient (AMB) | payer MEDICARE, MEDICAID, SELFPAY ==
--- NOTE | 2023-03-30 10:02 | MHC.OFFVISCO ---
Intake Intake Visit Reasons: Anticoagulation Allergies vancomycin [VANCOMYCIN] Allergy (Intermediate, Verified 03/30/23 09:56) ITCHING/RASH metoclopramide [From Reglan] Adverse Reaction (Intermediate, Verified 03/30/23 09:56) Nausea and Vomiting Medication List - Last Reconciled 03/30/23 by Anny Orta RN albuterol sulfate 90 mcg/actuation 2 puffs inhalation Q4H PRN albuterol sulfate 2.5 mg inhalation Q8H PRN amlodipine 10 mg PO DAILY atorvastatin 40 mg PO DAILY azithromycin 250 mg PO 3XW blood sugar diagnostic As directed cholecalciferol (vitamin D3) 25 mcg PO DAILY ezetimibe 10 mg PO DAILY fluticasone furoate-vilanterol 200-25 mcg/dose 1 inh inhalation DAILY food supplemt, lactose-reduced (Boost) PO hydrocortisone 2.5% appl topical magnesium oxide 400 mg PO DAILY metformin ER 1,000 mg PO BIDWM metoprolol succinate ER 50 mg PO DAILY mupirocin 2% topical BID ondansetron HCl 8 mg PO Q12H PRN oxcarbazepine 300 mg PO BID oxycodone 5 mg PO BEDTIME pramipexole 0.5 mg PO BEDTIME PRN umeclidinium 62.5 mcg/actuation (Incruse Ellipta) 1 inh inhalation DAILY warfarin 5 mg See Protocol PO DIRECTED Nursing Note INR: 2.9-in therapeutic range Medications and supplements reviewed No changes in health, diet, medications, or supplements, Denies any signs and symptoms of bleeding or bruising or clotting. Bleeding, bruising, clotting discussed Nutritional guidance given Dose: 5mg x 1, 7.5mg x 6 F/U INR: pt req 1 week due to missed dose of warfarin Patient verbalizes understanding of instructions given pt states missed a dose of warfarin over the weekend and increased dose next day to 10mg of warfarin Anti-Coag Initial Assessment Social Hx Patient Tobacco Use Status: Current everyday Tobacco user Tobacco use type: Cigarette alcohol intake: never Coding Level of Care Code Est Patient Level 1 Diagnoses Current use of anticoagulant therapy Z79.01 Assessment & Plan Assessment & Plan (1) Current use of anticoagulant therapy: Onset Date: ~2019 Comment: (due to Stroke with PFO and factor 5 leiden) Code(s): Z79.01 - [facility] (current) use of anticoagulants Category: Medical
[2023-03-30 10:03] LABS: Prothrombin Time Whole Bld POC 34.7 sec (11.1-13.5); ~PT, ~INR - Anti Coag Clinic 2.9 (0.9-1.1)
== END 2023-03-30 10:18 | disposition home or self-care (01) ==
LOC: HO.ACS 09:50
PROVIDERS: PCP Internal Medicine; Visit Provider Internal Medicine
DX: Z79.01 Long term (current) use of anticoagulants (principal)

== ENCOUNTER → 2023-03-30 09:50 | Outpatient (BNVA) | payer MEDICARE, MEDICAID, SELFPAY | PROVIDERS: PCP Internal Medicine; Visit Provider Internal Medicine | DX: Z86.73 Personal history of transient ischemic attack (TIA), and cerebral infarction without residual deficits (principal); Z79.01 Long term (current) use of anticoagulants; Z51.81 Encounter for therapeutic drug level monitoring | CPT/HCPCS: 85610; 99211 ==

== ENCOUNTER 2023-04-07 08:57 | Outpatient (AMB) | payer MEDICARE, MEDICAID, SELFPAY ==
[2023-04-07 09:03] LABS: Prothrombin Time Whole Bld POC 32.8 sec (11.1-13.5); ~PT, ~INR - Anti Coag Clinic 2.7 (0.9-1.1)
--- NOTE | 2023-04-07 09:07 | MHC.OFFVISCO ---
Intake Intake Visit Reasons: Anticoagulation Allergies vancomycin [VANCOMYCIN] Allergy (Intermediate, Verified 04/07/23 08:57) ITCHING/RASH metoclopramide [From Reglan] Adverse Reaction (Intermediate, Verified 04/07/23 08:57) Nausea and Vomiting Medication List - Last Reconciled 04/07/23 by Catherine Story RN albuterol sulfate 90 mcg/actuation 2 puffs inhalation Q4H PRN albuterol sulfate 2.5 mg inhalation Q8H PRN amlodipine 10 mg PO DAILY atorvastatin 40 mg PO DAILY azithromycin 250 mg PO 3XW blood sugar diagnostic As directed cholecalciferol (vitamin D3) 25 mcg PO DAILY ezetimibe 10 mg PO DAILY fluticasone furoate-vilanterol 200-25 mcg/dose 1 inh inhalation DAILY food supplemt, lactose-reduced (Boost) PO hydrocortisone 2.5% appl topical magnesium oxide 400 mg PO DAILY metformin ER 1,000 mg PO BIDWM metoprolol succinate ER 50 mg PO DAILY mupirocin 2% topical BID ondansetron HCl 8 mg PO Q12H PRN oxcarbazepine 300 mg PO BID oxycodone 5 mg PO BEDTIME pramipexole 0.5 mg PO BEDTIME PRN umeclidinium 62.5 mcg/actuation (Incruse Ellipta) 1 inh inhalation DAILY warfarin 5 mg See Protocol PO DIRECTED Nursing Note Amb to [facility] feeling well other than the breathing starting pulmonary rehab Medications and supplements reviewed No other changes in health, diet, medications, or supplements Denies any unusual signs and symptoms of bruising, bleeding Denies any new Chest pain, SOB, or clotting INR: 2.7 in therapeutic range Nutritional guidance given: balance greens and reds in diet Dose: continue usual dosing; 5mg x 1 day and 7.5mg x 6 days F/U INR: 2 weeks Patient verbalizes understanding of instructions given with accurate read back/ teach back of dosing Anti-Coag Initial Assessment Social Hx Patient Tobacco Use Status: Current everyday Tobacco user Tobacco use type: Cigarette alcohol intake: never Coding Level of Care Code Est Patient Level 1 Diagnoses Current use of anticoagulant therapy Z79.01 Time Spent (min) 15 Assessment & Plan Assessment & Plan (1) Current use of anticoagulant therapy: Onset Date: ~2019 Comment: (due to Stroke with PFO and factor 5 leiden) 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
== END 2023-04-07 09:13 | disposition home or self-care (01) ==
LOC: HO.ACS 08:57
PROVIDERS: PCP Internal Medicine; Visit Provider Internal Medicine
DX: Z79.01 Long term (current) use of anticoagulants (principal)

== ENCOUNTER → 2023-04-07 08:57 | Outpatient (BNVA) | payer MEDICARE, MEDICAID, SELFPAY | PROVIDERS: PCP Internal Medicine; Visit Provider Internal Medicine | DX: Z86.73 Personal history of transient ischemic attack (TIA), and cerebral infarction without residual deficits (principal); Z79.01 Long term (current) use of anticoagulants; Z51.81 Encounter for therapeutic drug level monitoring | CPT/HCPCS: 85610; 99211 ==

== ENCOUNTER 2023-04-22 09:23 | Outpatient (AMB) | payer MEDICARE, MEDICAID, SELFPAY ==
--- NOTE | 2023-04-22 09:46 | MHC.OFFVISCO ---
Intake Intake Visit Reasons: Anticoagulation Allergies vancomycin [VANCOMYCIN] Allergy (Intermediate, Verified 04/22/23 09:41) ITCHING/RASH metoclopramide [From Reglan] Adverse Reaction (Intermediate, Verified 04/22/23 09:41) Nausea and Vomiting Medication List - Last Reconciled 04/22/23 by Vonda Cam RN albuterol sulfate 90 mcg/actuation 2 puffs inhalation Q4H PRN albuterol sulfate 2.5 mg inhalation Q8H PRN amlodipine 10 mg PO DAILY atorvastatin 40 mg PO DAILY azithromycin 250 mg PO 3XW blood sugar diagnostic As directed cholecalciferol (vitamin D3) 25 mcg PO DAILY ezetimibe 10 mg PO DAILY fluticasone furoate-vilanterol 200-25 mcg/dose 1 inh inhalation DAILY food supplemt, lactose-reduced (Boost) PO hydrocortisone 2.5% appl topical magnesium oxide 400 mg PO DAILY metformin ER 1,000 mg PO BIDWM metoprolol succinate ER 50 mg PO DAILY mupirocin 2% topical BID ondansetron HCl 8 mg PO Q12H PRN oxcarbazepine 300 mg PO BID oxycodone 5 mg PO BEDTIME pramipexole 0.5 mg PO BEDTIME PRN umeclidinium 62.5 mcg/actuation (Incruse Ellipta) 1 inh inhalation DAILY warfarin 5 mg See Protocol PO DIRECTED Nursing Note INR: 2.2 in therapeutic range Medications and supplements reviewed No changes in health, diet, medications, or supplements, Denies any signs and symptoms of bleeding or bruising or clotting. Bleeding, bruising, clotting discussed Nutritional guidance given KEEP SAME , STILL HAS ENSURE / BOOST 4 / WEEK Dose: 7.5MG X 6 DAYS/5MG XC 1 DAY F/U INR: 2 WEEKS Patient verbalizes understanding of instructions given Anti-Coag Initial Assessment Social Hx Patient Tobacco Use Status: Current everyday Tobacco user Tobacco use type: Cigarette alcohol intake: never Coding Level of Care Code Est Patient Level 1 Diagnoses Current use of anticoagulant therapy Z79.01 Assessment & Plan Assessment & Plan (1) Current use of anticoagulant therapy: Onset Date: ~2019 Comment: (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
== END 2023-04-22 09:56 | disposition home or self-care (01) ==
LOC: HO.ACS 09:23
PROVIDERS: PCP Internal Medicine; Visit Provider Internal Medicine
DX: Z79.01 Long term (current) use of anticoagulants (principal)

== ENCOUNTER → 2023-04-22 09:23 | Outpatient (BNVA) | payer MEDICARE, MEDICAID, SELFPAY | PROVIDERS: PCP Internal Medicine; Visit Provider Internal Medicine | DX: Z86.73 Personal history of transient ischemic attack (TIA), and cerebral infarction without residual deficits (principal); Z79.01 Long term (current) use of anticoagulants; Z51.81 Encounter for therapeutic drug level monitoring | CPT/HCPCS: 85610; 99211 ==

== ENCOUNTER 2023-05-06 08:46 | Outpatient (AMB) | payer MEDICARE, MEDICAID, SELFPAY ==
[2023-05-06 09:08] LABS: Prothrombin Time Whole Bld POC 28.4 sec (11.1-13.5); ~PT, ~INR - Anti Coag Clinic 2.4 (0.9-1.1)
--- NOTE | 2023-05-06 09:14 | MHC.OFFVISCO ---
Intake Intake Visit Reasons: Anticoagulation Allergies vancomycin [VANCOMYCIN] Allergy (Intermediate, Verified 05/06/23 09:01) ITCHING/RASH metoclopramide [From Reglan] Adverse Reaction (Intermediate, Verified 05/06/23 09:01) Nausea and Vomiting Medication List - Last Reconciled 05/06/23 by Vonda Cam RN albuterol sulfate 90 mcg/actuation 2 puffs inhalation Q4H PRN albuterol sulfate 2.5 mg inhalation Q8H PRN amlodipine 10 mg PO DAILY atorvastatin 40 mg PO DAILY azithromycin 250 mg PO 3XW blood sugar diagnostic As directed cholecalciferol (vitamin D3) 25 mcg PO DAILY ezetimibe 10 mg PO DAILY fluticasone furoate-vilanterol 200-25 mcg/dose 1 inh inhalation DAILY food supplemt, lactose-reduced (Boost) PO hydrocortisone 2.5% appl topical magnesium oxide 400 mg PO DAILY metformin ER 1,000 mg PO BIDWM metoprolol succinate ER 50 mg PO DAILY mupirocin 2% topical BID ondansetron HCl 8 mg PO Q12H PRN oxcarbazepine 300 mg PO BID oxycodone 5 mg PO BEDTIME pramipexole 0.5 mg PO BEDTIME PRN umeclidinium 62.5 mcg/actuation (Incruse Ellipta) 1 inh inhalation DAILY warfarin 5 mg See Protocol PO DIRECTED Nursing Note INR: 2.4 in therapeutic range Medications and supplements reviewed No changes in health, diet, medications, or supplements, Denies any signs and symptoms of bleeding or bruising or clotting. Bleeding, bruising, clotting discussed Nutritional guidance given Dose: 5MG X 1 DAY/ 7.5MG X 6 DAYS F/U INR: 2 1/2 WEEKS- PT VERB NOT READY TO GO 3 WEEKS YET Patient verbalizes understanding of instructions given Anti-Coag Initial Assessment Social Hx Patient Tobacco Use Status: Current everyday Tobacco user Tobacco use type: Cigarette alcohol intake: never Coding Level of Care Code Est Patient Level 1 Diagnoses Current use of anticoagulant therapy Z79.01 Assessment & Plan Assessment & Plan (1) Current use of anticoagulant therapy: Onset Date: ~2019 Comment: (due to Stroke with PFO and factor 5 leiden) Code(s): Z79.01 - retirement (current) use of anticoagulants Category: Medical
== END 2023-05-06 09:16 | disposition home or self-care (01) ==
LOC: HO.ACS 08:46
PROVIDERS: PCP Internal Medicine; Visit Provider Internal Medicine
DX: Z79.01 Long term (current) use of anticoagulants (principal)

== ENCOUNTER → 2023-05-06 08:46 | Outpatient (BNVA) | payer MEDICARE, MEDICAID, SELFPAY | PROVIDERS: PCP Internal Medicine; Visit Provider Internal Medicine | DX: Z86.73 Personal history of transient ischemic attack (TIA), and cerebral infarction without residual deficits (principal); Z79.01 Long term (current) use of anticoagulants; Z51.81 Encounter for therapeutic drug level monitoring | CPT/HCPCS: 85610; 99211 ==

== ENCOUNTER 2023-05-11 06:05 | Outpatient (REF) | payer MEDICARE, MEDICAID, SELFPAY ==
[2023-05-11 06:22] LABS: MANUAL DIFF FLAG NO
[2023-05-11 07:18] LABS: Basophils Percent Auto 0.4 % (0-2); Eosinophils Absolute Auto 0.1 X10*3/uL (0.0-0.4); Eosinophils Percent Auto 1.5 % (0-4); Hematocrit 45.9 % (37.0-47.0); Hemoglobin 14.6 g/dl (12.0-16.0); Imm Gran Abs Auto 0.02 X10*3/uL (0.00-0.03); Imm Gran Pct Auto 0.2 % (0.0-0.4); Lymphocytes Absolute Auto 3.5 X10*3/uL (1.2-4.9); Lymphocytes Percent Auto 38.6 % (20-40); Mean Corpuscular HGB Conc 31.8 g/dl (31.0-35.0); Mean Corpuscular Hemoglobin 30.6 pg (27.0-33.0); Mean Corpuscular Volume 96.2 fL (80.0-98.0); Mean Platelet Volume 9.5 fL (9.4-12.3); Monocytes Absolute Auto 0.9 X10*3/uL (0.1-1.2); Monocytes Percent Auto 9.7 % (2-11); Neutrophils Absolute Auto 4.5 x10*3/uL (2.0-8.3); Neutrophils Percent Auto 49.6 % (45-73); Platelet Count 295 X10*3/uL (160-400); Red Blood Count 4.77 X10*6/uL (4.20-5.50); Red Cell Distribution Width 14.2 % (11.0-16.0)
[2023-05-11 07:25] LABS: Estimated Average Glucose 146 mg/dL; Hemoglobin A1c % 6.7 % (<6.0)
[2023-05-11 07:48] LABS: Alanine Aminotransferase 21 U/L (0-31); Albumin Level 4.3 g/dL (3.5-5.0); Alkaline Phosphatase 77 U/L (39-117); Anion Gap 17 (12-20); Aspartate Amino Transferase 22 U/L (5-31); Bilirubin Total 0.1 mg/dL (0.0-1.0); Blood Urea Nitrogen 9 mg/dL (9-16); Calcium 10.1 mg/dL (8.4-10.2); Carbon Dioxide 25 mmol/L (22-29); Chloride 105 mmol/L (96-108); Estimated Glomerular Filt Rate > 60; Glucose Random 154 mg/dL (60-115); Magnesium 1.8 mg/dL (1.6-2.6); Potassium 4.6 mmol/L (3.3-5.1); Sodium 142 mmol/L (135-145); Total Protein 7.8 g/dL (6.5-8.0)
[2023-05-11 08:08] LABS: Free T4 (Free Thyroxine) 0.84 ng/dL (0.71-1.85); Thyroid Stimulating Hormone 3.06 uIU/mL (0.32-4.0)
[2023-05-11 08:33] LABS: Amphetamine Screen Urine Not Detected (Not Detect); Barbiturates, Urine Not Detected (Not Detect); Benzodiazepines Screen Urine Not Detected (Not Detect); Cannabinoid Screen Urine Not Detected (Not Detect); Cocaine Screen Urine Not Detected (Not Detect); Fentanyl, urine Not Detected (Not Detect); Opiate Screen Urine Not Detected (Not Detect); Phencyclidine Screen Urine Not Detected (Not Detect)
[2023-05-11 08:34] LABS: Creatinine Urine 171.61 mg/dL; Microalbum/Creatinine Ratio Ur 13.9 ug/mg cr (<30)
== END 2023-05-11 06:06 | disposition home or self-care (01) ==
LOC: HO.LAB 06:05
PROVIDERS: PCP Internal Medicine; Visit Provider Internal Medicine
DX: E11.9 Type 2 diabetes mellitus without complications (principal); E03.9 Hypothyroidism, unspecified; R53.81 Other malaise; R53.83 Other fatigue; M54.6 Pain in thoracic spine; M54.2 Cervicalgia; G89.29 Other chronic pain; F11.20 Opioid dependence, uncomplicated
CPT/HCPCS: 80053; 80307; 82043; 82570; 83036; 83735; 84439; 84443; 85025

== ENCOUNTER 2023-05-13 12:30 | Outpatient (AMB) | payer MEDICARE, MEDICAID, SELFPAY ==
--- NOTE | 2023-05-13 13:06 | AM.OFFWIN_ITS ---
Intake Vital Signs 05/13/23 13:10 Height 5 ft Weight 136 lb BMI 26.6 BP 116/70 Blood Pressure Location Lt brachial Position Sitting Pulse 95 Pulse Source Pulse Oximeter Temp 96.5 F L Temp Source Temporal Artery Scan Pulse Oximetry (%) 98 Oxygen Delivery Method Room Air Intake Visit Reasons: EP, nose scrape Intake Note: pt is here today for nose scrape Patient Tobacco Use Status: Current everyday Tobacco user Allergies vancomycin [VANCOMYCIN] Allergy (Intermediate, Verified 05/13/23 13:07) ITCHING/RASH metoclopramide [From Reglan] Adverse Reaction (Intermediate, Verified 05/13/23 13:07) Nausea and Vomiting Do you need a note to return to daycare/school/sports/work: No HPI HPI Comments History of Present Illness Details This is a 67-year-old female with a past medical history of obstructive sleep apnea presenting for evaluation of a lesion on her nose. Pat negrita states that she received a new CPAP mask approximately 1 month ago. The mask rests on her nasal bone and after approximately 10 days there was a surface abrasion as a result of the mask. Patient states that it began to crust and now she notes surrounding redness. Patient denies any fevers, chills, discharge from the lesion or overt pain. Patient met with [facility] [place] today for a mask fitting and they encouraged her to be seen in urgent care. Patient has obtained a new CPAP mask which does not fit over her nose -- rather is nose pillows coupled with a mask over her mouth only. [facility] Medical History History of colon polyps (~2009) Type II diabetes mellitus, well controlled Personal history of nicotine dependence Factor 5 Leiden mutation, heterozygous Obstructive sleep apnea on CPAP (~2008) Osteopenia (~2018) Pacemaker (~2021) History of CVA (cerebrovascular accident) (~2019) Hyperlipidemia PFO (patent foramen ovale) (~2019) HTN (hypertension) COPD (chronic obstructive pulmonary disease) Current use of anticoagulant therapy (~2019) Surgical History History of bladder surgery (~1999) History of cholecystectomy (~2000) History of colonoscopy History of esophagogastroduodenoscopy (EGD) History of pacemaker (~2021) History of unilateral oophorectomy Hx of blepharoplasty Hx of cystoscopy Family History Mother Stroke Multiple sclerosis Diabetes Father CAD (coronary artery disease) Social History Alcohol intake: never Patient Tobacco Use Status: Current everyday Tobacco user Tobacco use type: Cigarette Cigarettes Per Day: 5 Years Smoked: 40 +/- e-Cigarette/Vaping Use: Currently Using service: No Current occupational status: retired Review of Systems Const All systems reviewed & are unremarkable except as noted in HPI and below Denies chills, Denies fatigue and Denies fever(s) ENT Reports other (pain and lesion overlying external nose) Skin/Breast Reports wounds (nose) Neuro Reports no additional complaints Endo Denies fatigue Physical Exam Const General: cooperative, healthy appearing, comfortable and no acute distress Nutritional Appearance: average body habitus Orientation/consciousness: patient oriented x3 Limitations: no limitations HEENT Head: Yes normal to inspection General nose exam: Abnormal external nose present (1cm x 0.75cm surface excoriation with 2cm surrounding erythema; no exudates) nasal erythema and nasal abrasion Skin Lesions: lesion noted (as noted above) Neuro General: patient oriented x3 Psych Appearance: grossly normal Mental Status: mental status grossly normal Insight: Good insight present (Psych) Judgement: Good judgement present (Psych) Assessment & Plan Assessment & Plan (1) Cellulitis of nose, external: Code(s): J34.0 - Abscess, furuncle and carbuncle of nose Plan Patient will be discharged with doxycycline to take twice daily for the next 7 days. Patient will apply triple antibiotic ointment topically to the visualized excoriation. She will follow-up with her PCP, Dr. Merrill next week for a reevaluation of this lesion. Medications: New doxycycline hyclate 100 mg PO BID 14 tabs 0RF Coding Level of Care Code Est Pt Level 3 (48329) Diagnoses Cellulitis of nose, external J34.0 Time Spent (min) 20
[2023-05-13 13:10] VITALS: BP 116/70; PULSE 95; TEMP 35.8; O2SAT 98; BMI 26.6
== END 2023-05-13 13:27 | disposition home or self-care (01) ==
PROVIDERS: PCP Internal Medicine; Visit Provider Physician Assistant
DX: J34.0 Abscess, furuncle and carbuncle of nose (principal)
CPT/HCPCS: 99213

== ENCOUNTER 2023-05-19 11:24 | Outpatient (AMB) | payer MEDICARE, MEDICAID, SELFPAY ==
[2023-05-19 11:30] LABS: Prothrombin Time Whole Bld POC 40.7 sec (11.1-13.5); ~PT, ~INR - Anti Coag Clinic 3.4 (0.9-1.1)
--- NOTE | 2023-05-19 11:34 | MHC.OFFVISCO ---
Intake Intake Visit Reasons: Anticoagulation Allergies vancomycin [VANCOMYCIN] Allergy (Intermediate, Verified 05/19/23 11:25) ITCHING/RASH metoclopramide [From Reglan] Adverse Reaction (Intermediate, Verified 05/19/23 11:25) Nausea and Vomiting Medication List - Last Reconciled 05/19/23 by Vonda Cam RN albuterol sulfate 90 mcg/actuation 2 puffs inhalation Q4H PRN albuterol sulfate 2.5 mg inhalation Q8H PRN amlodipine 10 mg PO DAILY atorvastatin 40 mg PO DAILY azithromycin 250 mg PO 3XW blood sugar diagnostic As directed cholecalciferol (vitamin D3) 25 mcg PO DAILY doxycycline hyclate 100 mg PO BID ezetimibe 10 mg PO DAILY fluticasone furoate-vilanterol 200-25 mcg/dose 1 inh inhalation DAILY food supplemt, lactose-reduced (Boost) PO hydrocortisone 2.5% appl topical magnesium oxide 400 mg PO DAILY metformin ER 1,000 mg PO BIDWM metoprolol succinate ER 50 mg PO DAILY mupirocin 2% topical BID ondansetron HCl 8 mg PO Q12H PRN oxcarbazepine 300 mg PO BID oxycodone 5 mg PO BEDTIME pramipexole 0.5 mg PO BEDTIME PRN umeclidinium 62.5 mcg/actuation (Incruse Ellipta) 1 inh inhalation DAILY warfarin 5 mg See Protocol PO DIRECTED Nursing Note INR:3.4 OUT OF therapeutic range Medications and supplements reviewed PT TREATED FOR BRIDGE OF NOSE CELLULITIS FROM CPAP MASK WITH DOXYCYCLINE 100 MG BID X 7DAYS OF 05/13/23 FORGOT TO CALL IN SHE ATE SMALL SERVING OF BROCCOLI YESTERDAY AND ENSURE Denies any signs and symptoms of bleeding or bruising or clotting. Bleeding, bruising, clotting discussed Nutritional guidance given - HAVE AN EXTRA GREEN THIS WEEK AND NEXT DUE TO ANTBX Dose: DECREASE TODAY'S AND TOMORROW'S DOSE TO 5MG THEN RESUME 5MG X 1 DAY/ 7.5MG X 6 DAYS F/U INR: KEPT PREVIOUS APPT 05/23/23 0915 - HAS GI APPT 315 AND WANTED TO KEEP APPT SEPARATE Patient verbalizes understanding of instructions given Anti-Coag Initial Assessment Social Hx Patient Tobacco Use Status: Current everyday Tobacco user Tobacco use type: Cigarette alcohol intake: never Coding Level of Care Code Est Patient Level 1 Diagnoses Current use of anticoagulant therapy Z79.01 Results AMB INR Fingerstick AMB INR Fingerstick 3.4 Last Edit by Vonda Cam RN on 05/19/23 11:33 MANUAL ENTRY NO INTERFACING Assessment & Plan Assessment & Plan (1) Current use of anticoagulant therapy: Onset Date: ~2019 Comment: (due to Stroke with PFO and factor 5 leiden) Code(s): Z79.01 - intermediate (current) use of anticoagulants Category: Medical
== END 2023-05-19 11:41 | disposition home or self-care (01) ==
LOC: HO.ACS 11:24
PROVIDERS: PCP Internal Medicine; Visit Provider Internal Medicine
DX: Z79.01 Long term (current) use of anticoagulants (principal)

== ENCOUNTER → 2023-05-19 11:24 | Outpatient (BNVA) | payer MEDICARE, MEDICAID, SELFPAY | PROVIDERS: PCP Internal Medicine; Visit Provider Internal Medicine | DX: Z86.73 Personal history of transient ischemic attack (TIA), and cerebral infarction without residual deficits (principal); Z79.01 Long term (current) use of anticoagulants; Z51.81 Encounter for therapeutic drug level monitoring | CPT/HCPCS: 85610; 99211 ==

== ENCOUNTER 2023-05-23 09:01 | Outpatient (AMB) | payer MEDICARE, MEDICAID, SELFPAY ==
[2023-05-23 09:28] LABS: Prothrombin Time Whole Bld POC 39.3 sec (11.1-13.5); ~PT, ~INR - Anti Coag Clinic 3.3 (0.9-1.1)
--- NOTE | 2023-05-23 09:32 | MHC.OFFVISCO ---
Intake Intake Visit Reasons: Anticoagulation Allergies vancomycin [VANCOMYCIN] Allergy (Intermediate, Verified 05/23/23 09:22) ITCHING/RASH metoclopramide [From Reglan] Adverse Reaction (Intermediate, Verified 05/23/23 09:22) Nausea and Vomiting Medication List - Last Reconciled 05/23/23 by Catherine Story RN albuterol sulfate 90 mcg/actuation 2 puffs inhalation Q4H PRN albuterol sulfate 2.5 mg inhalation Q8H PRN amlodipine 10 mg PO DAILY atorvastatin 40 mg PO DAILY azithromycin 250 mg PO 3XW blood sugar diagnostic As directed cholecalciferol (vitamin D3) 25 mcg PO DAILY ezetimibe 10 mg PO DAILY fluticasone furoate-vilanterol 200-25 mcg/dose 1 inh inhalation DAILY food supplemt, lactose-reduced (Boost) PO hydrocortisone 2.5% appl topical magnesium oxide 400 mg PO DAILY metformin ER 1,000 mg PO BIDWM metoprolol succinate ER 50 mg PO DAILY mupirocin 2% topical BID ondansetron HCl 8 mg PO Q12H PRN oxcarbazepine 300 mg PO BID oxycodone 5 mg PO BEDTIME pramipexole 0.5 mg PO BEDTIME PRN umeclidinium 62.5 mcg/actuation (Incruse Ellipta) 1 inh inhalation DAILY warfarin 5 mg See Protocol PO DIRECTED Nursing Note Amb to ACS feeling well after recent cellulitis of bridge of nose, completed doxycyclineon 05/20 Medications and supplements reviewed No other changes in health, diet, medications, or supplements Denies any unusual signs and symptoms of bruising, bleeding Denies any new Chest pain, SOB, or clotting INR: 3.3 just above therapeutic range Nutritional guidance given: continued increased greens after antibiotic Dose: decrease dose today to 5mg then resume usual dosing; 5mg x 1 day and 7.5mg x 6 days F/U INR: 1 week Patient verbalizes understanding of instructions given with accurate read back/ teach back of dosing Anti-Coag Initial Assessment Social Hx Patient Tobacco Use Status: Current everyday Tobacco user Tobacco use type: Cigarette alcohol intake: never Questionnaires HAS-BLED Does the patient had uncontrolled Hypertension?: No Does the patient have renal disease?: No Does the patient have liver disease?: No Does the patient have a history of stroke?: Yes Has the patient had major bleeding or predisposition to bleeding?: Yes Does the patient have labile INRs?: Yes Is the patient over 65 years of age?: Yes Is the patient on medications that gives them a predisposition to bleeding?: Yes Does the patient use alcohol?: No HAS-BLED Score: 5 CHADSVASC Age: 66-74 Gender: Female Does the patient have a history of CHF?: No Does the patient have a history of Hypertension?: Yes Does the patient have a history of Stroke/TIA/Thromboembolism?: Yes Does the patient have a history of Vascular Disease (prior OR, PAD or aortic plaque)?: No Does the patient have a history of Diabetes?: Yes CHADS VACS Score: 6 Bharath Prediction Score Rsk VTE Active Cancer: No Previous VTE, excluding superficial vein thrombosis: No Reduced mobility: No Already known Thrombophilic Condition: Yes With-in last month Trauma and/or Surgery: No Elderly 70 year or older: No Heart and/or Respiratory Failure: No Acute Myocardial infarction and/or Ischemic Stroke: Yes Acute Infection and/or Rheumatologic Disorder: No Obesity (BMI 30 or greater): No Ongoing Hormonal Treatment: No Score: 4 Bharath Score less than 4; Low Risk of VTE Bharath Score 4 or greater; High Risk of VTE Coding Level of Care Code Est Patient Level 1 Diagnoses Current use of anticoagulant therapy Z79.01 Time Spent (min) 15 Assessment & Plan Assessment & Plan (1) Current use of anticoagulant therapy: Onset Date: ~2019 Comment: (due to Stroke with PFO and factor 5 leiden) Code(s): Z79.01 - supervisor intermediates (current) use of anticoagulants Category: Medical
== END 2023-05-23 09:45 | disposition home or self-care (01) ==
LOC: HO.ACS 09:01
PROVIDERS: PCP Internal Medicine; Visit Provider Internal Medicine
DX: Z79.01 Long term (current) use of anticoagulants (principal)

== ENCOUNTER → 2023-05-23 09:01 | Outpatient (BNVA) | payer MEDICARE, MEDICAID, SELFPAY | PROVIDERS: PCP Internal Medicine; Visit Provider Internal Medicine | DX: R10.9 Unspecified abdominal pain (principal); R11.0 Nausea; Z86.73 Personal history of transient ischemic attack (TIA), and cerebral infarction without residual deficits; Z79.01 Long term (current) use of anticoagulants; Z51.81 Encounter for therapeutic drug level monitoring | CPT/HCPCS: 85610; 99211; 99212 ==

== ENCOUNTER 2023-05-23 14:57 | Outpatient (AMB) | payer MEDICARE, MEDICAID, SELFPAY ==
--- NOTE | 2023-05-23 15:00 | A.OFFVIS_ITS ---
Intake Vital Signs 05/23/23 15:02 Height 5 ft Weight 132 lb 4.438 oz BMI 25.8 BP 115/53 L Blood Pressure Location Lt brachial Position Sitting Pulse 81 Intake Visit Reasons: Follow up Abdominal pain/ CT Scan Intake Note: Diane presents in the office as a follow up ct scan and abdominal pains. CC: She states that she is having the stomach problems that she had when she started to see Dr Mcadams - michael. Allergies vancomycin [VANCOMYCIN] Allergy (Intermediate, Verified 05/23/23 15:02) ITCHING/RASH metoclopramide [From Reglan] Adverse Reaction (Intermediate, Verified 05/23/23 15:02) Nausea and Vomiting HPI HPI Comments History of Present Illness Details This is a 66-year-old female past medical history of COPD, factor 5 laden heterozygosity, PFO (not a candidate for closure), history of CVA, on warfarin, personal history of polyps, who presents to the office for post procedure follow up. Initial visit 05/03/22: Patient states that for the past 1 year, she has had tremendous fatigue, to the point where there are some days when she does not even have the energy to get out of bed. For the past 2-3 months, she has also been noticing increased bloating, early satiety, decreased appetite and nausea. Reports increased nausea and burping. She has lost around 15 lb during this time. This is also associated with loose watery diarrhea with urgency. Triggered by food intake. Nighttime symptoms present. At an average, has 5-6 liquidy bowel movements which are nonbloody. She thinks she may have had 1-2 black bowel movements last month. Most recent endoscopy was a colonoscopy by Dr. Casey 5-6 years ago per her report. Was told she had polyps and will be due for repeat in 5 years. Of note, previous endoscopy notes by Dr. Echavarria also mentions family history, but patient denies any family history of colon cancer in first-degree relatives. Sister has colon polyps. Of note, she also brings up chronic complaint of dysphagia. She has had this for many years. Describes it as a sensation of food getting stuck in middle of her chest causing immense pain and nausea. Previous workup as per report has included barium study, upper endoscopy, motility study. All this was done more than 5 years ago and [facility]. She was told she possibly has esophageal spasm , but is not on any treatment. Patient was recently seen in the emergency room in January for fevers and left lower quadrant pain. CT scan was done that was read with stomach wall thickening, panc tail calcifications and L sided colitis. EGD/Colonoscopy 05/2022: * Grade A esophagitis * Esophageal spasms * Empiric Savary dilation to 20 mm? * Gastritis (biopsy) * Normal duodenum * Normal colon and terminal ileum mucosa * Total of 4 polyps removed from ascending, transverse colon and rectum. * Diverticulosis * External and internal hemorrhoids Path: A. Stomach, random, biopsy:? Oxyntic mucosa within normal limits; no Helicobacter organisms seen. B.? Colon, transverse, polypectomies (2):? Tubular adenomata; negative for high- grade dysplasia or carcinoma. C.? Colon, ascending, polypectomy:? Tubular adenoma; negative for high-grade dysplasia or carcinoma. D.? Rectum, polypectomy:? Hyperplastic mucosal polyp. 06/18/22: While the nausea, early satiety and weight loss seems to have stabilized after starting omeprazole, she continues to report intermittent sensation food getting stuck in her mid chest. Yesterday morning, also had severe episode of heartburn with regurgitation. Had a barium swallow yesterday, which has not been read yet. Reviewed medication use, has been taking omeprazole with meal, not before. Also continues to smoke. Records from [facility] re esophageal motility pending. 09/01/22: Motility study reviewed. Normal motility. Patient continues to complain of significant nausea and pain in her chest that radiates to her back. Associated with nausea but no vomiting or regurgitation. Nausea improves with food intake. Has had some more weight loss, although not to the same degree as before. This was also discussed with the patient over the phone last week, and a CT angio abdomen has already been ordered to rule out chronic mesenteric ischemia, she does have significant peripheral vascular disease (sees Dr. Venegas at [facility]). Labs reviewed, was noted to have elevated ESR January 2022. Reports has an appointment with the corporate consultant. Patient is quite frustrated that she has daily fatigue and very low energy to do anything. Continues to have sensation of difficulty swallowing and sensation of food getting stuck along with nausea without any unifying diagnosis. Also reports joint stiffness all over her body specially in the morning. Sometimes, even getting up the stairs is a huge task. 05/23/23: Reports had not followed up as had been feeling quite well. Abd discomfort and nausea had resolved. She had also gained her weight back. However the past few weeks feels that she now has a gnawing pain in the epigastric region assoc with nausea. Notices discomfort is worse when she is hungry. A week ago also noticed a different odor to her stool for a couple of days, but did not remember to actually look for the color of the stool. Continues to smoke - almost 4-5 cigs a day but trying to quit. No NSAIDs. [facility] Medical History History of colon polyps (~2009) Type II diabetes mellitus, well controlled Personal history of nicotine dependence Factor 5 Leiden mutation, heterozygous Obstructive sleep apnea on CPAP (~2008) Osteopenia (~2018) Pacemaker (~2021) History of CVA (cerebrovascular accident) (~2019) Hyperlipidemia PFO (patent foramen ovale) (~2019) HTN (hypertension) COPD (chronic obstructive pulmonary disease) Current use of anticoagulant therapy (~2019) Surgical History History of bladder surgery (~1999) History of cholecystectomy (~2000) History of colonoscopy History of esophagogastroduodenoscopy (EGD) History of pacemaker (~2021) History of unilateral oophorectomy Hx of blepharoplasty Hx of cystoscopy Family History Mother Stroke Multiple sclerosis Diabetes Father CAD (coronary artery disease) Social History Alcohol intake: never Patient Tobacco Use Status: Current everyday Tobacco user Tobacco use type: Cigarette Cigarettes Per Day: 5 Years Smoked: 40 +/- e-Cigarette/Vaping Use: Currently Using service: No Current occupational status: retired Review of Systems Const All systems reviewed & are unremarkable except as noted in HPI and below Physical Exam Vital Signs: Last Vital Signs Pulse 81 05/23/23 15:02 BP 115/53 L 05/23/23 15:02 BMI result Body Mass Index 25.8 Gen appear: No acute distress HEENT: no icterus, no cervical lymphadenopathy Chest: No overt resp distress, no expiratory wheezing CVS: S1/S2, regular Abd: soft, nontender, nondistended Psych: Stable affect, answering questions appropriately Neuro: A/Ox3 noted to move all extremities spontaneously Ext: no peripheral edema Assessment & Plan Assessment & Plan (1) Abdominal pain: Code(s): R10.9 - Unspecified abdominal pain (2) Nausea: Code(s): R11.0 - Nausea Plan Description suspicious for PUD, other Ddx include gastritis, duodenitis, esophagitis, GERD. 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 Follow up after EGD Medications: New omeprazole 20 mg PO BID 30 days 60 caps 1RF Coding Level of Care Code Est Pt Level 4 (89584) Diagnoses Abdominal pain R10.9 Nausea R11.0
[2023-05-23 15:02] VITALS: BP 115/53; PULSE 81; BMI 25.8
== END 2023-05-23 15:55 | disposition home or self-care (01) ==
PROVIDERS: PCP Internal Medicine; Visit Provider Internal Medicine
DX: R10.9 Unspecified abdominal pain (principal); R11.0 Nausea
CPT/HCPCS: 99214

== ENCOUNTER 2023-05-30 08:53 | Outpatient (AMB) | payer MEDICARE, MEDICAID, SELFPAY ==
--- NOTE | 2023-05-30 09:37 | MHC.OFFVISCO ---
Intake Intake Visit Reasons: Anticoagulation Allergies vancomycin [VANCOMYCIN] Allergy (Intermediate, Verified 05/30/23 09:21) ITCHING/RASH metoclopramide [From Reglan] Adverse Reaction (Intermediate, Verified 05/30/23 09:21) Nausea and Vomiting Medication List - Last Reconciled 05/30/23 by Vonda Cam RN albuterol sulfate 90 mcg/actuation 2 puffs inhalation Q4H PRN albuterol sulfate 2.5 mg inhalation Q8H PRN amlodipine 10 mg PO DAILY atorvastatin 40 mg PO DAILY blood sugar diagnostic As directed cholecalciferol (vitamin D3) 25 mcg PO DAILY ezetimibe 10 mg PO DAILY food supplemt, lactose-reduced (Boost) PO hydrocortisone 2.5% appl topical magnesium oxide 400 mg PO DAILY metformin ER 1,000 mg PO BIDWM metoprolol succinate ER 50 mg PO DAILY mupirocin 2% topical BID omeprazole 20 mg PO BID 30 days ondansetron HCl 8 mg PO Q12H PRN oxcarbazepine 300 mg PO BID oxycodone 5 mg PO BEDTIME PRN umeclidinium 62.5 mcg/actuation (Incruse Ellipta) 1 inh inhalation DAILY warfarin 5 mg See Protocol PO DIRECTED Nursing Note INR 3.4? out of therapeutic range Medications and supplements reviewed Patient status: c/o of not feeling well, c/o of occ midsternal pain - not sure if from sore muscles from exercising or something else - calling cardiology and PCP for f/u appt. INR may be elevated due to: * have a few less boost, *c/o mild GI nausea, *completed doxycyline 1 1/2 weeks ago -elevated INR may be a residual from doxycycline *AZITHROMYCIN APPEARS TO BE A LAREGER DOSE -SHE IS GOING TO CHECK AND CALL [facility] PT RETURNED CALL SHE TAKES AZITHROMYCIN 250MG TAB Medications or supplements: no changes - she is going to chk dose of azithromycin - appears to be more than what she use to take Diet: FAIR Denies any signs and symptoms of bleeding or clotting or unusual bruising Bleeding, bruising, clotting discussed Nutritional guidance given: ENC TO KEEP UP WEEKLY GREENS AND BOOST Dose: DECREASE WEEKLY DOSE X 1 MORE WEEK 5MG X 2 DAYS/ 7.5MG X 5 DAYS F/U INR Date : 1 WEEK ?? Patient verbalizing understanding of instructions given. Anti-Coag Initial Assessment Social Hx Patient Tobacco Use Status: Current everyday Tobacco user Tobacco use type: Cigarette alcohol intake: never Coding Level of Care Code Est Patient Level 1 Diagnoses Current use of anticoagulant therapy Z79.01 Results AMB INR Fingerstick AMB INR Fingerstick 3.4 Last Edit by Vonda Cam RN on 05/30/23 09:32 manual entry Assessment & Plan Assessment & Plan (1) Current use of anticoagulant therapy: Onset Date: ~2019 Comment: (due to Stroke with PFO and factor 5 leiden) Code(s): Z79.01 - intermission coordinator (current) use of anticoagulants Category: Medical Medications: New azithromycin 250 MG TAB
[2023-05-30 11:47] LABS: Prothrombin Time Whole Bld POC 40.8 sec (11.1-13.5); ~PT, ~INR - Anti Coag Clinic 3.4 (0.9-1.1)
== END 2023-05-30 09:43 | disposition home or self-care (01) ==
LOC: HO.ACS 08:53
PROVIDERS: PCP Internal Medicine; Visit Provider Internal Medicine
DX: Z79.01 Long term (current) use of anticoagulants (principal)

== ENCOUNTER → 2023-05-30 08:53 | Outpatient (BNVA) | payer MEDICARE, MEDICAID, SELFPAY | PROVIDERS: PCP Internal Medicine; Visit Provider Internal Medicine | DX: Z86.73 Personal history of transient ischemic attack (TIA), and cerebral infarction without residual deficits (principal); Z79.01 Long term (current) use of anticoagulants; Z51.81 Encounter for therapeutic drug level monitoring | CPT/HCPCS: 85610; 99211 ==

== ENCOUNTER → 2023-06-01 23:59 | Outpatient (BNV) | payer MEDICARE, MEDICAID, SELFPAY ==
--- NOTE | 2023-06-02 16:18 | MHC.OFFVIS ---
Intake Intake Visit Reasons: Remote Device Check- [employer] Allergies vancomycin [VANCOMYCIN] Allergy (Intermediate, Verified 05/30/23 09:21) ITCHING/RASH metoclopramide [From Reglan] Adverse Reaction (Intermediate, Verified 05/30/23 09:21) Nausea and Vomiting PFSH Medical History History of colon polyps (~2009) Type II diabetes mellitus, well controlled Personal history of nicotine dependence Factor 5 Leiden mutation, heterozygous Obstructive sleep apnea on CPAP (~2008) Osteopenia (~2018) Pacemaker (~2021) History of CVA (cerebrovascular accident) (~2019) Hyperlipidemia PFO (patent foramen ovale) (~2019) HTN (hypertension) COPD (chronic obstructive pulmonary disease) Current use of anticoagulant therapy (~2019) Surgical History History of bladder surgery (~1999) History of cholecystectomy (~2000) History of colonoscopy History of esophagogastroduodenoscopy (EGD) History of pacemaker (~2021) History of unilateral oophorectomy Hx of blepharoplasty Hx of cystoscopy Family History Mother Stroke Multiple sclerosis Diabetes Father CAD (coronary artery disease) Social History Alcohol intake: never Patient Tobacco Use Status: Current everyday Tobacco user Tobacco use type: Cigarette Cigarettes Per Day: 5 Years Smoked: 40 +/- e-Cigarette/Vaping Use: Currently Using service: No Current occupational status: retired Office Procedures Cardiac Device Check Cardiac Device Check Details: Remote pacemaker report generated 06/01/2023. Pacemaker function is adequate [id number] Cardiac Device Interrogation, pacemaker Procedure code (CPT) selection complete Coding Level of Care Code Procedure Only CPT Codes Cardiac Device Check - Cardiac Device 12: [id number]-[id number] Cardiac Device Interrogation, pacemaker ([id number])
== END ==
PROVIDERS: PCP Internal Medicine; Visit Provider Internal Medicine Cardiovascular Disease
DX: R00.0 Tachycardia, unspecified (principal); Z95.0 Presence of cardiac pacemaker
CPT/HCPCS: 93294

== ENCOUNTER 2023-06-06 08:59 | Outpatient (AMB) | payer MEDICARE, MEDICAID, SELFPAY ==
--- NOTE | 2023-06-06 09:24 | MHC.OFFVISCO ---
Intake Intake Visit Reasons: Anticoagulation Allergies vancomycin [VANCOMYCIN] Allergy (Intermediate, Verified 06/06/23 09:10) ITCHING/RASH metoclopramide [From Reglan] Adverse Reaction (Intermediate, Verified 06/06/23 09:10) Nausea and Vomiting Medication List - Last Reconciled 06/06/23 by Catherine Story RN albuterol sulfate 90 mcg/actuation 2 puffs inhalation Q4H PRN albuterol sulfate 2.5 mg inhalation Q8H PRN amlodipine 10 mg PO DAILY atorvastatin 40 mg PO DAILY azithromycin 250 MG TAB blood sugar diagnostic As directed cholecalciferol (vitamin D3) 25 mcg PO DAILY ezetimibe 10 mg PO DAILY food supplemt, lactose-reduced (Boost) PO hydrocortisone 2.5% appl topical magnesium oxide 400 mg PO DAILY metformin ER 1,000 mg PO BIDWM metoprolol succinate ER 50 mg PO DAILY mupirocin 2% topical BID omeprazole 20 mg PO BID 30 days ondansetron HCl 8 mg PO Q12H PRN oxcarbazepine 300 mg PO BID oxycodone 5 mg PO BEDTIME PRN umeclidinium 62.5 mcg/actuation (Incruse Ellipta) 1 inh inhalation DAILY warfarin 5 mg See Protocol PO DIRECTED Nursing Note Amb to [facility] feeling well Medications and supplements reviewed No changes in health, diet, medications, or supplements Denies any unusual signs and symptoms of bruising, bleeding Denies any new Chest pain, SOB, or clotting INR: 2.9 in therapeutic range Nutritional guidance given: balance greens and reds in diet, be consistent, be aware of the reds that raise over Thanksgiving Dose: continue usual dosing;5mg x 2 days and 7.5mg x 5 days F/U INR:2 weeks Patient verbalizes understanding of instructions given with accurate read back/ teach back of dosing Anti-Coag Initial Assessment Social Hx Patient Tobacco Use Status: Current everyday Tobacco user Tobacco use type: Cigarette alcohol intake: never Coding Level of Care Code Est Patient Level 1 Diagnoses Current use of anticoagulant therapy Z79.01 Time Spent (min) 15 Results AMB INR Fingerstick AMB INR Fingerstick 2.9 Last Edit by Catherine Story RN on 06/06/23 09:20 interface failure Assessment & Plan Assessment & Plan (1) Current use of anticoagulant therapy: Onset Date: ~2019 Comment: (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
[2023-06-06 09:26] LABS: Prothrombin Time Whole Bld POC 34.6 sec (11.1-13.5); ~PT, ~INR - Anti Coag Clinic 2.9 (0.9-1.1)
== END 2023-06-06 09:29 | disposition home or self-care (01) ==
LOC: HO.ACS 08:59
PROVIDERS: PCP Internal Medicine; Visit Provider Internal Medicine
DX: Z79.01 Long term (current) use of anticoagulants (principal)

== ENCOUNTER → 2023-06-06 08:59 | Outpatient (BNVA) | payer MEDICARE, MEDICAID, SELFPAY | PROVIDERS: PCP Internal Medicine; Visit Provider Internal Medicine | DX: Z86.73 Personal history of transient ischemic attack (TIA), and cerebral infarction without residual deficits (principal); Z79.01 Long term (current) use of anticoagulants; Z51.81 Encounter for therapeutic drug level monitoring | CPT/HCPCS: 85610; 99211 ==

== ENCOUNTER 2023-06-20 07:39 | Outpatient (REF) | payer MEDICARE, MEDICAID, SELFPAY ==
--- NOTE | ~2023-06-20 | XR_ITS ---
EXAMINATION: XR LUMBOSACRAL SPINE CLINICAL INFORMATION: Back pain in the right sciatica COMPARISON: None available. TECHNIQUE: Three views of the lumbosacral spine. FINDINGS: There is dextroscoliosis of lumbar spine. Vertebral bodies are well aligned and intervertebral discs are preserved except of narrowing of L3-L4, L4-L5 and L5-S1 intervertebral disc spaces. There is no evidence of spondylolysis or spondylolisthesis. XR/XR lumbar spine 2-3V IMPRESSION: Dextroscoliosis of lumbar spine and mild degenerative changes in lumbar spine.
--- NOTE | ~2023-06-20 | XR_ITS ---
EXAMINATION: XR HIP, RIGHT CLINICAL INFORMATION: Right hip pain COMPARISON: None available. TECHNIQUE: Two views of the right hip and AP pelvis. FINDINGS: No fracture. Alignment is anatomic. Hip joint space is maintained. Soft tissues are unremarkable. XR/XR hip RT min 2V IMPRESSION: Normal right hip.
[2023-06-20 07:57] LABS: MANUAL DIFF FLAG NO
[2023-06-20 08:37] LABS: Basophils Percent Auto 0.5 % (0-2); Eosinophils Absolute Auto 0.1 X10*3/uL (0.0-0.4); Eosinophils Percent Auto 1.7 % (0-4); Hematocrit 41.7 % (37.0-47.0); Hemoglobin 13.4 g/dl (12.0-16.0); Imm Gran Abs Auto 0.03 X10*3/uL (0.00-0.03); Imm Gran Pct Auto 0.4 % (0.0-0.4); Lymphocytes Absolute Auto 2.4 X10*3/uL (1.2-4.9); Lymphocytes Percent Auto 29.3 % (20-40); Mean Corpuscular HGB Conc 32.1 g/dl (31.0-35.0); Mean Corpuscular Hemoglobin 30.5 pg (27.0-33.0); Mean Corpuscular Volume 94.8 fL (80.0-98.0); Mean Platelet Volume 9.3 fL (9.4-12.3); Monocytes Absolute Auto 0.7 X10*3/uL (0.1-1.2); Monocytes Percent Auto 8.8 % (2-11); Neutrophils Absolute Auto 4.9 x10*3/uL (2.0-8.3); Neutrophils Percent Auto 59.3 % (45-73); Platelet Count 279 X10*3/uL (160-400); White Blood Count 8.3 X10*3/uL (4.8-10.8)
[2023-06-20 09:06] LABS: Alanine Aminotransferase 17 U/L (0-31); Albumin Level 3.9 g/dL (3.5-5.0); Alkaline Phosphatase 75 U/L (39-117); Anion Gap 13 (12-20); Aspartate Amino Transferase 17 U/L (5-31); Bilirubin Total 0.3 mg/dL (0.0-1.0); Blood Urea Nitrogen 15 mg/dL (9-16); Calcium 9.9 mg/dL (8.4-10.2); Carbon Dioxide 25 mmol/L (22-29); Chloride 107 mmol/L (96-108); Estimated Glomerular Filt Rate > 60; Glucose Random 151 mg/dL (60-115); Potassium 4.2 mmol/L (3.3-5.1); Sodium 141 mmol/L (135-145); Total Protein 7.6 g/dL (6.5-8.0)
== END 2023-06-20 07:40 | disposition home or self-care (01) ==
LOC: HO.XRAY 07:39
PROVIDERS: PCP Internal Medicine; Visit Provider Internal Medicine
DX: M54.41 Lumbago with sciatica, right side (principal); M25.551 Pain in right hip; Z86.73 Personal history of transient ischemic attack (TIA), and cerebral infarction without residual deficits; Z51.81 Encounter for therapeutic drug level monitoring; Z79.01 Long term (current) use of anticoagulants; E11.9 Type 2 diabetes mellitus without complications; R53.82 Chronic fatigue, unspecified; R53.81 Other malaise
CPT/HCPCS: 36415; 72100; 73502; 80053; 82550; 85025; 85610; 99211

== ENCOUNTER 2023-06-20 08:41 | Outpatient (AMB) | payer MEDICARE, MEDICAID, SELFPAY ==
--- NOTE | 2023-06-20 08:48 | MHC.OFFVISCO ---
Intake Intake Visit Reasons: Anticoagulation Allergies vancomycin [VANCOMYCIN] Allergy (Intermediate, Verified 06/20/23 08:48) ITCHING/RASH metoclopramide [From Reglan] Adverse Reaction (Intermediate, Verified 06/20/23 08:48) Nausea and Vomiting Medication List - Last Reconciled 06/20/23 by Anny Orta RN albuterol sulfate 90 mcg/actuation 2 puffs inhalation Q4H PRN albuterol sulfate 2.5 mg inhalation Q8H PRN amlodipine 10 mg PO DAILY atorvastatin 40 mg PO DAILY azithromycin 250 MG TAB blood sugar diagnostic As directed cholecalciferol (vitamin D3) 25 mcg PO DAILY ezetimibe 10 mg PO DAILY food supplemt, lactose-reduced (Boost) PO hydrocortisone 2.5% appl topical magnesium oxide 400 mg PO DAILY metformin ER 1,000 mg PO BIDWM metoprolol succinate ER 50 mg PO DAILY mupirocin 2% topical BID omeprazole 20 mg PO BID 30 days ondansetron HCl 8 mg PO Q12H PRN oxcarbazepine 300 mg PO BID oxycodone 5 mg PO BEDTIME PRN umeclidinium 62.5 mcg/actuation (Incruse Ellipta) 1 inh inhalation DAILY warfarin 5 mg See Protocol PO DIRECTED Nursing Note INR: 2.6- in therapeutic range of 2-3 Medications and supplements reviewed- no changes No changes in health, diet, medications, or supplements, Denies any signs and symptoms of bleeding or bruising or clotting. Bleeding, bruising, clotting discussed Nutritional guidance given Dose: 5mg x 2, 7.5mg x 5 F/U INR: 2 weeks Patient verbalizes understanding of instructions given pt with c.o back and right leg pain for three weeks. has seen pcp, upcoming xrays and mri Anti-Coag Initial Assessment Social Hx Patient Tobacco Use Status: Current everyday Tobacco user Tobacco use type: Cigarette alcohol intake: never Coding Level of Care Code Est Patient Level 1 Diagnoses Current use of anticoagulant therapy Z79.01 Results AMB INR Fingerstick AMB INR Fingerstick 2.6 Last Edit by Anny Orta RN on 06/20/23 08:52 Assessment & Plan Assessment & Plan (1) Current use of anticoagulant therapy: Onset Date: ~2019 Comment: (due to Stroke with PFO and factor 5 leiden) Code(s): Z79.01 - long-term (current) use of anticoagulants Category: Medical
[2023-06-20 08:52] LABS: Prothrombin Time Whole Bld POC 31.8 sec (11.1-13.5); ~PT, ~INR - Anti Coag Clinic 2.6 (0.9-1.1)
== END 2023-06-20 08:56 | disposition home or self-care (01) ==
LOC: HO.ACS 08:41
PROVIDERS: PCP Internal Medicine; Visit Provider Internal Medicine
DX: Z79.01 Long term (current) use of anticoagulants (principal)

== ENCOUNTER 2023-07-04 09:16 | Outpatient (AMB) | payer MEDICARE, MEDICAID, SELFPAY ==
--- NOTE | 2023-07-04 09:26 | MHC.OFFVISCO ---
Intake Intake Visit Reasons: Anticoagulation Allergies vancomycin [VANCOMYCIN] Allergy (Intermediate, Verified 07/04/23 09:16) ITCHING/RASH metoclopramide [From Reglan] Adverse Reaction (Intermediate, Verified 07/04/23 09:16) Nausea and Vomiting Medication List - Last Reconciled 07/04/23 by Catherine Story RN albuterol sulfate 90 mcg/actuation 2 puffs inhalation Q4H PRN albuterol sulfate 2.5 mg inhalation Q8H PRN amlodipine 10 mg PO DAILY atorvastatin 40 mg PO DAILY azithromycin 250 MG TAB blood sugar diagnostic As directed cholecalciferol (vitamin D3) 25 mcg PO DAILY ezetimibe 10 mg PO DAILY food supplemt, lactose-reduced (Boost) PO hydrocortisone 2.5% appl topical magnesium oxide 400 mg PO DAILY metformin ER 1,000 mg PO BIDWM metoprolol succinate ER 50 mg PO DAILY mupirocin 2% topical BID omeprazole 20 mg PO BID 30 days ondansetron HCl 8 mg PO Q12H PRN oxcarbazepine 300 mg PO BID oxycodone 5 mg PO BEDTIME PRN umeclidinium 62.5 mcg/actuation (Incruse Ellipta) 1 inh inhalation DAILY warfarin 5 mg See Protocol PO DIRECTED Nursing Note Amb to [facility] feeling, ok, continues with right leg pain sts 8/10 with ambulation and no pain when sitting sts she has been taking an extra oxycodone during day, no tylenol Medications and supplements reviewed No changes in health, diet, medications, or supplements Denies any unusual signs and symptoms of bruising, bleeding Denies any new Chest pain, SOB, or clotting INR: 2.7 in therapeutic range Nutritional guidance given: balance greens and reds in diet Dose: continue usual dosing; 5mg x 2 days and 7.5mg x 5 days F/U INR: 2 weeks Patient verbalizes understanding of instructions given with accurate read back/ teach back of dosing Anti-Coag Initial Assessment Social Hx Patient Tobacco Use Status: Current everyday Tobacco user Tobacco use type: Cigarette alcohol intake: never Coding Level of Care Code Est Patient Level 1 Diagnoses Current use of anticoagulant therapy Z79.01 Time Spent (min) 15 Results AMB INR Fingerstick AMB INR Fingerstick 2.7 Last Edit by Catherine Story RN on 07/04/23 09:24 interface failure Assessment & Plan Assessment & Plan (1) Current use of anticoagulant therapy: Onset Date: ~2019 Comment: (due to Stroke with PFO and factor 5 leiden) Code(s): Z79.01 - emt intermediate (current) use of anticoagulants Category: Medical
[2023-07-04 12:12] LABS: ~PT, ~INR - Anti Coag Clinic 2.7 (0.9-1.1)
== END 2023-07-04 09:30 | disposition home or self-care (01) ==
LOC: HO.ACS 09:16
PROVIDERS: PCP Internal Medicine; Visit Provider Internal Medicine
DX: Z79.01 Long term (current) use of anticoagulants (principal)

== ENCOUNTER → 2023-07-04 09:16 | Outpatient (BNVA) | payer MEDICARE, MEDICAID, SELFPAY | PROVIDERS: PCP Internal Medicine; Visit Provider Internal Medicine | DX: Z86.73 Personal history of transient ischemic attack (TIA), and cerebral infarction without residual deficits (principal); Z79.01 Long term (current) use of anticoagulants; Z51.81 Encounter for therapeutic drug level monitoring | CPT/HCPCS: 85610; 99211 ==

== ENCOUNTER 2023-07-19 09:04 | Outpatient (AMB) | payer MEDICARE, MEDICAID, SELFPAY ==
[2023-07-19 09:32] LABS: Prothrombin Time Whole Bld POC 22.9 sec (11.1-13.5); ~PT, ~INR - Anti Coag Clinic 1.9 (0.9-1.1)
--- NOTE | 2023-07-19 09:36 | MHC.OFFVISCO ---
Intake Intake Visit Reasons: Anticoagulation Allergies vancomycin [VANCOMYCIN] Allergy (Intermediate, Verified 07/19/23 09:26) ITCHING/RASH metoclopramide [From Reglan] Adverse Reaction (Intermediate, Verified 07/19/23 09:26) Nausea and Vomiting Medication List - Last Reconciled 07/19/23 by Catherine Story RN albuterol sulfate 90 mcg/actuation 2 puffs inhalation Q4H PRN albuterol sulfate 2.5 mg inhalation Q8H PRN amlodipine 10 mg PO DAILY atorvastatin 40 mg PO DAILY azithromycin 250 MG TAB blood sugar diagnostic As directed cholecalciferol (vitamin D3) 25 mcg PO DAILY ezetimibe 10 mg PO DAILY food supplemt, lactose-reduced (Boost) PO hydrocortisone 2.5% appl topical magnesium oxide 400 mg PO DAILY metformin ER 1,000 mg PO BIDWM metoprolol succinate ER 50 mg PO DAILY mupirocin 2% topical BID omeprazole 20 mg PO BID 30 days ondansetron HCl 8 mg PO Q12H PRN oxcarbazepine 300 mg PO BID oxycodone 5 mg PO BEDTIME PRN umeclidinium 62.5 mcg/actuation (Incruse Ellipta) 1 inh inhalation DAILY warfarin 5 mg See Protocol PO DIRECTED Nursing Note Amb to [facility] feeling ok except for continued pain in right leg with ambulation Medications and supplements reviewed No other changes in health, diet, medications, or supplements Denies any unusual signs and symptoms of bruising, bleeding Denies any new Chest pain, SOB, or clotting INR: 1.9 just below therapeutic range Nutritional guidance given: no greens today then balance greens and reds in diet Dose: increase dose today to 10mg then resume usual dosing tomorrow; 5mg x 2 days and 7.5mg x 5 days F/U INR: 10 days Patient verbalizes understanding of instructions given with accurate read back/ teach back of dosing Anti-Coag Initial Assessment Social Hx Patient Tobacco Use Status: Current everyday Tobacco user Tobacco use type: Cigarette alcohol intake: never Coding Level of Care Code Est Patient Level 1 Diagnoses Current use of anticoagulant therapy Z79.01 Time Spent (min) 15 Assessment & Plan Assessment & Plan (1) Current use of anticoagulant therapy: Onset Date: ~2019 Comment: (due to Stroke with PFO and factor 5 leiden) Code(s): Z79.01 - shelter (current) use of anticoagulants Category: Medical
== END 2023-07-19 09:41 | disposition home or self-care (01) ==
LOC: HO.ACS 09:04
PROVIDERS: PCP Internal Medicine; Visit Provider Internal Medicine
DX: Z79.01 Long term (current) use of anticoagulants (principal)

== ENCOUNTER → 2023-07-19 09:04 | Outpatient (BNVA) | payer MEDICARE, MEDICAID, SELFPAY | PROVIDERS: PCP Internal Medicine; Visit Provider Internal Medicine | DX: Z86.73 Personal history of transient ischemic attack (TIA), and cerebral infarction without residual deficits (principal); Z79.01 Long term (current) use of anticoagulants; Z51.81 Encounter for therapeutic drug level monitoring | CPT/HCPCS: 85610; 99211 ==

== ENCOUNTER 2023-07-29 09:05 | Outpatient (AMB) | payer MEDICARE, MEDICAID, SELFPAY ==
[2023-07-29 09:28] LABS: Prothrombin Time Whole Bld POC 30.5 sec (11.1-13.5); ~PT, ~INR - Anti Coag Clinic 2.5 (0.9-1.1)
--- NOTE | 2023-07-29 09:29 | MHC.OFFVISCO ---
Intake Intake Visit Reasons: Anticoagulation Allergies vancomycin [VANCOMYCIN] Allergy (Intermediate, Verified 07/29/23 09:22) ITCHING/RASH metoclopramide [From Reglan] Adverse Reaction (Intermediate, Verified 07/29/23 09:22) Nausea and Vomiting Medication List - Last Reconciled 07/29/23 by Catherine Story RN albuterol sulfate 90 mcg/actuation 2 puffs inhalation Q4H PRN albuterol sulfate 2.5 mg inhalation Q8H PRN amlodipine 10 mg PO DAILY atorvastatin 40 mg PO DAILY azithromycin 250 MG TAB blood sugar diagnostic As directed cholecalciferol (vitamin D3) 25 mcg PO DAILY ezetimibe 10 mg PO DAILY food supplemt, lactose-reduced (Boost) PO hydrocortisone 2.5% appl topical magnesium oxide 400 mg PO DAILY metformin ER 1,000 mg PO BIDWM metoprolol succinate ER 50 mg PO DAILY mupirocin 2% topical BID omeprazole 20 mg PO BID 30 days ondansetron HCl 8 mg PO Q12H PRN oxcarbazepine 300 mg PO BID oxycodone 5 mg PO BEDTIME PRN umeclidinium 62.5 mcg/actuation (Incruse Ellipta) 1 inh inhalation DAILY warfarin 5 mg See Protocol PO DIRECTED Nursing Note Amb to [facility] feeling ok, continues with right lower back pain, noticeable limp right,sts MRI sched for 08/04 Medications and supplements reviewed No changes in health, diet, medications, or supplements Denies any unusual signs and symptoms of bruising, bleeding Denies any new Chest pain, SOB, or clotting INR: 2.5 now in therapeutic range Nutritional guidance given: balance greens and reds in diet, has 1-2 boost a day down from 5-6 daily Dose: continue usual dosing;5mg x2 days and 7.5mg x 5 days F/U INR: 2 weeks Patient verbalizes understanding of instructions given with accurate read back/ teach back of dosing Anti-Coag Initial Assessment Social Hx Patient Tobacco Use Status: Current everyday Tobacco user Tobacco use type: Cigarette alcohol intake: never Coding Level of Care Code Est Patient Level 1 Diagnoses Current use of anticoagulant therapy Z79.01 Time Spent (min) 15 Assessment & Plan Assessment & Plan (1) Current use of anticoagulant therapy: Onset Date: ~2019 Comment: (due to Stroke with PFO and factor 5 leiden) Code(s): Z79.01 - terminal carman (current) use of anticoagulants Category: Medical
== END 2023-07-29 09:35 | disposition home or self-care (01) ==
LOC: HO.ACS 09:05
PROVIDERS: PCP Internal Medicine; Visit Provider Internal Medicine
DX: Z79.01 Long term (current) use of anticoagulants (principal)

== ENCOUNTER → 2023-07-29 09:05 | Outpatient (BNVA) | payer MEDICARE, MEDICAID, SELFPAY | PROVIDERS: PCP Internal Medicine; Visit Provider Internal Medicine | DX: Z86.73 Personal history of transient ischemic attack (TIA), and cerebral infarction without residual deficits (principal); Z79.01 Long term (current) use of anticoagulants; Z51.81 Encounter for therapeutic drug level monitoring | CPT/HCPCS: 85610; 99211 ==

== ENCOUNTER 2023-08-04 10:53 | Outpatient (REF) | payer MEDICARE, MEDICAID, SELFPAY ==
--- NOTE | ~2023-08-04 | MR_ITS ---
EXAMINATION: MR LUMBAR SPINE WITHOUT CONTRAST CLINICAL INFORMATION: 68-year-old with self-reported low back and bilateral thigh pain. Osteoarthritis. COMPARISON: 08/08/2013 MRI TECHNIQUE: MRI of the lumbar spine was obtained using routine sequences without contrast. FINDINGS: CORONAL ALIGNMENT: There is moderate mid lumbar dextroscoliosis stable in appearance, convex to the right at L3. There is mild cqxy-qm-ipijc lateral listhesis at L4-L5 stable in appearance. SAGITTAL ALIGNMENT: There is trace rotatory anterolisthesis at L5-S1 asymmetric to the right slightly more apparent on current study. Otherwise normal alignment in the sagittal plane. LUMBOSACRAL JUNCTION: Normal. There are 5 ljy-vdz-[id number] lumbar-type vertebral bodies. VERTEBRAL BODIES: Vertebral body heights are well-maintained. No acute or nonhealed fractures. DISC SPACES AND ENDPLATES: Natb-ae-tblnbulv disc space height loss asymmetric to the right at L5-S1 with disc desiccation and minor spondylosis stable in appearance. Moderate diffuse disc volume loss at L4-L5 and asymmetric to the left at L3-L4 progressed from previous exam with disc desiccation and mild spondylosis at these levels. Mild disc desiccation at L2-L3 with minor spondylosis with mild disc volume loss asymmetric to the left developed since previous exam. SPINAL CANAL: No abnormal developmental findings. BONE MARROW: No significant marrow-replacing process or bone marrow edema. CONUS MEDULLARIS: Terminates at L2. Morphology and signal is normal. INTRADURAL NERVE ROOTS: Within normal limits. L5-S1: There is concentric disc bulging. Previously noted left paramedian to subarticular disc protrusion has resolved. There is a small right subarticular disc herniation on current study with progression of right subarticular recess stenosis. There is impingement on the right S1 nerve root progressed from previous exam. There is severe right-sided and moderate left-sided facet arthropathy similar in appearance to the prior study. No significant central spinal canal stenosis. Improved appearance to the left subarticular zone. Gbri-ft-dksaeadi bilateral neural foraminal stenosis, right more than left stable in appearance, with disc material abutting the exiting right L5 nerve root unchanged. L4-L5: Diffuse disc bulging again noted now with a superimposed right paramedian to subarticular/inferior foraminal disc protrusion since prior study. There is flattening of the ventral dural sac asymmetric to the right progressed on the right since previous exam. There is moderate left-sided and ghkh-wy-qggggztj right-sided facet arthropathy stable in appearance. There is severe right and moderate to severe left-sided subarticular zone stenosis progressed from previous exam with encroachment on the traversing L5 nerve roots, right more than left on current exam. There is weyh-xu-zcvddkwm left-sided neural foraminal narrowing without neural impingement unchanged. There is mild foraminal narrowing on the right since previous exam without neural impingement. L3-L4: There is diffuse disc bulging, slightly progressed centrally since the previous study. Mild flattening of the dural sac is noted asymmetric to the left, stable on the left and progressed on the right. No central canal stenosis. Mild facet arthropathy is noted bilaterally unchanged. Slight narrowing of the subarticular zones is noted bilaterally, stable on the left and developed on the right since previous exam without traversing neural impingement. There is tphh-xs-ambrykht left-sided neural foraminal narrowing without neural impingement stable in appearance. Mild foraminal narrowing on the right has developed since previous exam without neural impingement. L2-L3: Mild disc bulging slightly more apparent on current study. No significant facet arthropathy, canal or neural foraminal stenosis. L1-L2: Normal annular contour. No facet arthropathy, canal or foraminal stenosis. PARAVERTEBRAL AND INCLUDED EXTRASPINAL SOFT TISSUES: There is posterior paraspinal and psoas muscle sarcopenia. On current study, there is focal dilatation of the distal infrarenal abdominal aorta measuring 2.7 cm maximum AP dimension which appears slightly increased in size when compared to previous CT angiogram of 09/22/2022. Recommend followup every 5 years. Reference: J Am Kevin Radiol 2013; 10 (10): 789-794. MR/MR lumbar spine wo con IMPRESSION: 1. Lumbar dextroscoliosis stable in appearance with mild bpox-hf-jrjkk lateral listhesis at L4-L5 stable in appearance. Trace rotatory anterolisthesis at L5-S1 asymmetric to the right slightly more apparent on current study. 2. Multilevel discogenic degenerative changes and spondylosis with some progression of disc volume loss at L3-L4 and L4-L5 since previous exam. 3. Disc bulging at L5-S1 now with a small right subarticular disc herniation at this level with progression of right subarticular recess stenosis with right S1 nerve root impingement progressed from previous exam. 4. Disc bulging at L4-L5 now with a right paramedian to inferior foraminal disc protrusion since the previous exam with progression of subarticular zone stenosis, right more than left, with encroachment on the traversing L5 nerve roots, right more than left on current study. 5. Disc bulging at L3-L4 slightly progressed centrally since the previous exam with mild narrowing of the subarticular zones bilaterally, stable on the left and progressed on the right since previous exam without traversing neural impingement. [id number]-jd-dncynvwl left-sided and mild right-sided neural foraminal stenosis developed at this level without neural impingement. 6. Mild disc bulging at L2-L3 slightly more apparent on current study. 7. Focal dilatation of the distal infrarenal abdominal aorta as detailed above. See above for recommendations.
== END 2023-08-04 10:54 | disposition home or self-care (01) ==
LOC: HO.MRI 10:53
PROVIDERS: PCP Internal Medicine; Visit Provider Internal Medicine
DX: M54.51 Vertebrogenic low back pain (principal)
CPT/HCPCS: 72148

== ENCOUNTER 2023-08-12 08:59 | Outpatient (AMB) | payer MEDICARE, MEDICAID, SELFPAY ==
--- NOTE | 2023-08-12 09:24 | MHC.OFFVISCO ---
Intake Intake Visit Reasons: Anticoagulation Allergies vancomycin [VANCOMYCIN] Allergy (Intermediate, Verified 08/12/23 09:21) ITCHING/RASH metoclopramide [From Reglan] Adverse Reaction (Intermediate, Verified 08/12/23 09:21) Nausea and Vomiting Medication List - Last Reconciled 08/12/23 by Vonda Cam RN albuterol sulfate 90 mcg/actuation 2 puffs inhalation Q4H PRN albuterol sulfate 2.5 mg inhalation Q8H PRN amlodipine 10 mg PO DAILY atorvastatin 40 mg PO DAILY azithromycin 250 MG TAB blood sugar diagnostic As directed cholecalciferol (vitamin D3) 25 mcg PO DAILY ezetimibe 10 mg PO DAILY food supplemt, lactose-reduced (Boost) PO hydrocortisone 2.5% appl topical magnesium oxide 400 mg PO DAILY metformin ER 1,000 mg PO BIDWM metoprolol succinate ER 50 mg PO DAILY mupirocin 2% topical BID omeprazole 20 mg PO BID 30 days ondansetron HCl 8 mg PO Q12H PRN oxcarbazepine 300 mg PO BID oxycodone 5 mg PO BEDTIME PRN umeclidinium 62.5 mcg/actuation (Incruse Ellipta) 1 inh inhalation DAILY warfarin 5 mg See Protocol PO DIRECTED Nursing Note INR: 2.7 in therapeutic range Medications and supplements reviewed Has been off omeprazole for about an year- she is going to call MD for refill - it was explained that it can raise her INR if she starts back on it to call [facility] , she has been taking her metformin for some reason it was on hold because she was to have labs done and or an endo - waiting for it to be booked Denies any signs and symptoms of bleeding or bruising or clotting. Bleeding, bruising, clotting discussed Nutritional guidance given Dose: keep same F/U INR: 2 weeks Patient verbalizes understanding of instructions given Anti-Coag Initial Assessment Social Hx Patient Tobacco Use Status: Current everyday Tobacco user Tobacco use type: Cigarette alcohol intake: never Coding Level of Care Code Est Patient Level 1 Diagnoses Current use of anticoagulant therapy Z79.01 Results AMB INR Fingerstick AMB INR Fingerstick 2.7 Last Edit by Vonda Cam RN on 08/12/23 09:22 manual entry Assessment & Plan Assessment & Plan (1) Current use of anticoagulant therapy: Onset Date: ~2019 Comment: (due to Stroke with PFO and factor 5 leiden) 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
[2023-08-15 17:35] LABS: Prothrombin Time Whole Bld POC 32.9 sec (11.1-13.5); ~PT, ~INR - Anti Coag Clinic 2.7 (0.9-1.1)
== END 2023-08-12 10:18 | disposition home or self-care (01) ==
LOC: HO.ACS 08:59
PROVIDERS: PCP Internal Medicine; Visit Provider Internal Medicine
DX: Z79.01 Long term (current) use of anticoagulants (principal)

== ENCOUNTER → 2023-08-12 08:59 | Outpatient (BNVA) | payer MEDICARE, MEDICAID, SELFPAY | PROVIDERS: PCP Internal Medicine; Visit Provider Internal Medicine | DX: Z86.73 Personal history of transient ischemic attack (TIA), and cerebral infarction without residual deficits (principal); Z79.01 Long term (current) use of anticoagulants; Z51.81 Encounter for therapeutic drug level monitoring | CPT/HCPCS: 85610; 99211 ==

== ENCOUNTER 2023-08-26 08:49 | Outpatient (AMB) | payer MEDICARE, MEDICAID, SELFPAY ==
[2023-08-26 09:14] LABS: Prothrombin Time Whole Bld POC 33.3 sec (11.1-13.5); ~PT, ~INR - Anti Coag Clinic 2.8 (0.9-1.1)
--- NOTE | 2023-08-26 09:24 | MHC.OFFVISCO ---
Intake Intake Visit Reasons: Anticoagulation Allergies vancomycin [VANCOMYCIN] Allergy (Intermediate, Verified 08/26/23 09:08) ITCHING/RASH metoclopramide [From Reglan] Adverse Reaction (Intermediate, Verified 08/26/23 09:08) Nausea and Vomiting Medication List - Last Reconciled 08/26/23 by Vonda Cam RN albuterol sulfate 90 mcg/actuation 2 puffs inhalation Q4H PRN albuterol sulfate 2.5 mg inhalation Q8H PRN amlodipine 10 mg PO DAILY atorvastatin 40 mg PO DAILY azithromycin 250 MG TAB blood sugar diagnostic As directed cholecalciferol (vitamin D3) 25 mcg PO DAILY ezetimibe 10 mg PO DAILY food supplemt, lactose-reduced (Boost) PO hydrocortisone 2.5% appl topical magnesium oxide 400 mg PO DAILY metformin ER 1,000 mg PO BIDWM metoprolol succinate ER 50 mg PO DAILY mupirocin 2% topical BID omeprazole 20 mg PO BID 30 days ondansetron HCl 8 mg PO Q12H PRN oxcarbazepine 300 mg PO BID oxycodone 5 mg PO BEDTIME PRN umeclidinium 62.5 mcg/actuation (Incruse Ellipta) 1 inh inhalation DAILY warfarin 5 mg See Protocol PO DIRECTED Nursing Note To have upper endo 10/04/23 -waiting Dr Merrill fenrando for instruction still has not resumed the omeprzole - c/o of food occasional getting stuck and when it does its painful INR: 2.8 in therapeutic range Medications and supplements reviewed No changes in health, diet, medications, or supplements, Denies any signs and symptoms of bleeding or bruising or clotting. Bleeding, bruising, clotting discussed Nutritional guidance given Dose: 5mg x 2 days 7.5mg x 5 days F/U INR: 2 weeks Patient verbalizes understanding of instructions given Anti-Coag Initial Assessment Social Hx Patient Tobacco Use Status: Current everyday Tobacco user Tobacco use type: Cigarette alcohol intake: never Coding Level of Care Code Est Patient Level 1 Diagnoses Current use of anticoagulant therapy Z79.01 Assessment & Plan Assessment & Plan (1) Current use of anticoagulant therapy: Onset Date: ~2019 Comment: (due to Stroke with PFO and factor 5 leiden) Code(s): Z79.01 - [facility]PC (current) use of anticoagulants Category: Medical
== END 2023-08-26 09:29 | disposition home or self-care (01) ==
LOC: HO.ACS 08:49
PROVIDERS: PCP Internal Medicine; Visit Provider Internal Medicine
DX: Z79.01 Long term (current) use of anticoagulants (principal)

== ENCOUNTER → 2023-08-26 08:49 | Outpatient (BNVA) | payer MEDICARE, MEDICAID, SELFPAY | PROVIDERS: PCP Internal Medicine; Visit Provider Internal Medicine | DX: Z86.73 Personal history of transient ischemic attack (TIA), and cerebral infarction without residual deficits (principal); Z79.01 Long term (current) use of anticoagulants; Z51.81 Encounter for therapeutic drug level monitoring | CPT/HCPCS: 85610; 99211 ==

== ENCOUNTER 2023-08-30 12:49 | Outpatient (REF) | payer MEDICARE, MEDICAID, SELFPAY ==
--- NOTE | ~2023-08-30 | US_ITS ---
EXAMINATION: US VENOUS ULTRASOUND WITH DOPPLER LOWER EXTREMITY, BILATERAL CLINICAL INFORMATION: Edema, bilateral leg pain COMPARISON: None available. TECHNIQUE: Ultrasound of the deep veins is performed from the hip to the calf with compression sonography and color and pulse Doppler assessment. Spectral analysis with color-flow imaging is performed. FINDINGS: RIGHT: There is normal venous compression and respiratory variation and augmented flow. The visualized common femoral vein, superficial femoral vein, profunda femoral vein, popliteal vein, and the posterior tibial and peroneal veins shows no evidence of deep venous thrombosis. LEFT: There is normal venous compression and respiratory variation and augmented flow. The visualized common femoral vein, superficial femoral vein, profunda femoral vein, popliteal vein, and the posterior tibial and peroneal veins shows no evidence of deep venous thrombosis. . US/US venous duplex LE BI IMPRESSION: No DVT demonstrated in the right and left lower extremity.
== END 2023-08-30 12:50 | disposition home or self-care (01) ==
LOC: HO.US 12:49
PROVIDERS: PCP Internal Medicine; Visit Provider Internal Medicine
DX: R60.9 Edema, unspecified (principal); M79.661 Pain in right lower leg; M79.662 Pain in left lower leg
CPT/HCPCS: 93970

== ENCOUNTER 2023-08-31 10:52 | Outpatient (REF) | payer MEDICARE, MEDICAID, SELFPAY ==
--- NOTE | ~2023-08-31 | MM_ITS ---
EXAMINATION: BONE DENSITOMETRY CLINICAL INDICATION: Estrogen deficiency. COMPARISON: Previous BD dated 12/28/2018 and baseline BD dated 08/14/2013. TECHNIQUE: Using a [employer] DXA System (software version: 13.1) manufactured by [employer], dual-energy x-ray absorptiometry was performed of the lumbar spine and left hip. The images are of good technical quality. Summary results are attached. FINDINGS: LEFT FEMUR, NECK: Current: BMD 0.870 g/cm2, Z-score 0.6, T-score -1.2, osteopenia. Prior: BMD 0.738 g/cm2. Baseline: BMD 0.912 g/cm2. LEFT FEMUR, TOTAL: Current: BMD 0.965 g/cm2, Z-score 1.2, T-score -0.3, normal, 4.0% increase from previous, 4.0% decrease from baseline (<5% change is not significant). Prior: BMD 0.928 g/cm2. Baseline: BMD 1.005 g/cm2. AP SPINE L1-L3 (excluding L4): The data of L1-L4 has been changed to exclude the L4 vertebral body, because degenerative sclerosis at this level may cause overestimation of lumbar spine density. Current: BMD 0.986 g/cm2, Z-score 0.3, T-score -1.5, osteopenia, 6.9% decrease from previous, 4.7% decrease from baseline (<5% change is not significant). Prior: BMD 1.059 g/cm2. Baseline: BMD 1.035 g/cm2. IDENTIFIED RISK FACTORS: Early menopause, height loss, right oophorectomy, secondary osteoporosis, tobacco use (current smoker). HISTORY OF FRACTURE: None listed. MEDICATIONS: Vitamin D. MM/XR DEXA axial skeleton IMPRESSION: 1. DIAGNOSIS: Osteopenia based on the lowest T-score value of -1.5 in the lumbar spine applying World Health Organization criteria. 2. 10-YEAR FRACTURE RISK PREDICTION, FRAX: Major osteoporotic fracture (clinical spine, forearm, hip or shoulder) 9.4%. Hip fracture 1.9%. 3. Treatment Recommendations: NOF guidelines recommend consideration for treatment in postmenopausal women and men age 50 and older presenting with the following: -A hip or vertebral (clinical or morphometric) fracture. -T-score less than or equal to -2.5 at the femoral neck or spine after appropriate evaluation to exclude secondary causes. -Low bone mass at the hip or spine and a 10-year fracture probability by FRAX of greater than or equal to 3% for hip fracture or greater than or equal to 20% for major osteoporotic fracture based on the [place] adapted WHO algorithm. 4. Other Recommendations: All treatment decisions require clinical judgment and consideration of individual patient factors, including patient preferences, comorbidities, previous drug use, risk factors not captured in the FRAX model (e.g. frailty, falls, vitamin D deficiency, increased bone turnover, interval significant decline in bone density) and possible under or overestimation of fracture risk by FRAX. Additional medical evaluation for secondary cause of low bone mineral density may be appropriate. FUTURE SCAN RECOMMENDATION: People with diagnosed cases of osteoporosis or at high risk for fracture should have regular bone mineral density tests. For patients eligible for Medicare, routine testing is allowed once every 2 years. The testing frequency can be increased to one year for patients who have rapidly progressing disease, those who are receiving or discontinuing medical therapy to restore bone mass, or have additional risk factors.
== END 2023-08-31 10:53 | disposition home or self-care (01) ==
LOC: HO.MAMMO 10:52
PROVIDERS: PCP Internal Medicine; Visit Provider Internal Medicine
DX: E28.39 Other primary ovarian failure (principal); Z13.820 Encounter for screening for osteoporosis
CPT/HCPCS: 77080

== ENCOUNTER → 2023-08-31 23:59 | Outpatient (BNV) | payer MEDICARE, MEDICAID, SELFPAY ==
--- NOTE | 2023-09-01 16:00 | MHC.OFFVIS ---
Intake Intake Visit Reasons: Remote Device Check- [employer] Allergies vancomycin [VANCOMYCIN] Allergy (Intermediate, Verified 08/26/23 09:08) ITCHING/RASH metoclopramide [From Reglan] Adverse Reaction (Intermediate, Verified 08/26/23 09:08) Nausea and Vomiting PFSH Medical History History of colon polyps (~2009) Type II diabetes mellitus, well controlled Personal history of nicotine dependence Factor 5 Leiden mutation, heterozygous Obstructive sleep apnea on CPAP (~2008) Osteopenia (~2018) Pacemaker (~2021) History of CVA (cerebrovascular accident) (~2019) Hyperlipidemia PFO (patent foramen ovale) (~2019) HTN (hypertension) COPD (chronic obstructive pulmonary disease) Current use of anticoagulant therapy (~2019) Surgical History History of bladder surgery (~1999) History of cholecystectomy (~2000) History of colonoscopy History of esophagogastroduodenoscopy (EGD) History of pacemaker (~2021) History of unilateral oophorectomy Hx of blepharoplasty Hx of cystoscopy Family History Mother Stroke Multiple sclerosis Diabetes Father CAD (coronary artery disease) Social History Alcohol intake: never Patient Tobacco Use Status: Current everyday Tobacco user Tobacco use type: Cigarette Cigarettes Per Day: 5 Years Smoked: 40 +/- e-Cigarette/Vaping Use: Currently Using service: No Current occupational status: retired Office Procedures Cardiac Device Check Cardiac Device Check Details: Remote pacemaker report generated 08/31/2023. Pacemaker function is adequate. [id number] Cardiac Device Interrogation, pacemaker Procedure code (CPT) selection complete Assessment & Plan Assessment & Plan (1) Cardiac pacemaker in situ: Code(s): Z95.0 - Presence of cardiac pacemaker Plan: See above Coding Level of Care Code Procedure Only Diagnoses Cardiac pacemaker in situ Z95.0 CPT Codes Cardiac Device Check - Cardiac Device 12: [id number] Cardiac Device Interrogation, pacemaker ([id number])
== END ==
PROVIDERS: PCP Internal Medicine; Visit Provider Internal Medicine Cardiovascular Disease
DX: R00.0 Tachycardia, unspecified (principal); Z95.0 Presence of cardiac pacemaker
CPT/HCPCS: 93294

== ENCOUNTER 2023-09-01 06:39 | Outpatient (REF) | payer MEDICARE, MEDICAID, SELFPAY ==
[2023-09-01 06:59] LABS: MANUAL DIFF FLAG NO
[2023-09-01 07:12] LABS: Basophils Percent Auto 0.4 % (0-2); Eosinophils Absolute Auto 0.2 X10*3/uL (0.0-0.4); Eosinophils Percent Auto 1.8 % (0-4); Hematocrit 40.8 % (37.0-47.0); Hemoglobin 13.3 g/dl (12.0-16.0); Imm Gran Abs Auto 0.03 X10*3/uL (0.00-0.03); Imm Gran Pct Auto 0.3 % (0.0-0.4); Lymphocytes Absolute Auto 3.3 X10*3/uL (1.2-4.9); Lymphocytes Percent Auto 36.3 % (20-40); Mean Corpuscular HGB Conc 32.6 g/dl (31.0-35.0); Mean Corpuscular Hemoglobin 30.6 pg (27.0-33.0); Mean Corpuscular Volume 93.8 fL (80.0-98.0); Monocytes Absolute Auto 0.9 X10*3/uL (0.1-1.2); Neutrophils Absolute Auto 4.7 x10*3/uL (2.0-8.3); Neutrophils Percent Auto 51.2 % (45-73); Platelet Count 272 X10*3/uL (160-400); Red Blood Count 4.35 X10*6/uL (4.20-5.50); Red Cell Distribution Width 13.8 % (11.0-16.0); White Blood Count 9.1 X10*3/uL (4.8-10.8)
[2023-09-01 07:25] LABS: Estimated Average Glucose 146 mg/dL; Hemoglobin A1c % 6.7 % (<6.0)
[2023-09-01 07:35] LABS: Alanine Aminotransferase 14 U/L (0-31); Albumin Level 4.2 g/dL (3.5-5.0); Alkaline Phosphatase 77 U/L (39-117); Anion Gap 15 (12-20); Aspartate Amino Transferase 14 U/L (5-31); Bilirubin Total 0.3 mg/dL (0.0-1.0); Blood Urea Nitrogen 12 mg/dL (9-16); C Reactive Protein 0.22 mg/dL (< or = 0.50); Calcium 10.6 mg/dL (8.4-10.2); Carbon Dioxide 26 mmol/L (22-29); Chloride 105 mmol/L (96-108); Cholesterol 162 mg/dL (<200); Estimated Glomerular Filt Rate > 60; Glucose Random 161 mg/dL (60-115); HDL Cholesterol 74 mg/dL (>40); LDL Cholesterol Calculated 73 mg/dL (<100); Magnesium 1.8 mg/dL (1.6-2.6); Potassium 4.1 mmol/L (3.3-5.1); Sodium 142 mmol/L (135-145); Total Protein 7.5 g/dL (6.5-8.0); Triglycerides 77 mg/dL (<150)
[2023-09-01 07:54] LABS: Thyroid Stimulating Hormone 3.11 uIU/mL (0.32-4.0)
[2023-09-01 08:28] LABS: Vitamin B12 366 pg/mL (200-900)
[2023-09-01 08:31] LABS: Appearance Urine Clear; Color Urine Dark Yellow; Glucose Urine UA Negative (Negative); Leukocyte Esterase Urine Negative (Negative); Nitrite Urine Negative (Negative); PH 5.5 (5.0-9.0); Specific Gravity - Urine 1.025 (1.005-1.025); UMIC TRIGGER UACC YES; Urine Blood Trace (Negative); Urine Ketones Trace mg/dL (Negative); Urine Protein Trace mg/dL (Neg-Trace)
[2023-09-01 08:39] LABS: Bacteria Urine None Seen (None Seen); Hyaline Casts Urine 0-2 /LPF (0-2); WBC Urine 0-5 /HPF (0-5)
== END 2023-09-01 06:40 | disposition home or self-care (01) ==
LOC: HO.LAB 06:39
PROVIDERS: PCP Internal Medicine; Visit Provider Internal Medicine
DX: E28.39 Other primary ovarian failure (principal); M79.605 Pain in left leg; M79.604 Pain in right leg; E78.2 Mixed hyperlipidemia; E11.9 Type 2 diabetes mellitus without complications; I10 Essential (primary) hypertension; E03.9 Hypothyroidism, unspecified; E55.9 Vitamin D deficiency, unspecified
CPT/HCPCS: 36415; 80053; 80061; 81001; 82306; 82607; 83036; 83735; 84443; 85025; 86140

== ENCOUNTER 2023-09-09 08:46 | Outpatient (AMB) | payer MEDICARE, MEDICAID, SELFPAY ==
[2023-09-09 08:52] LABS: Prothrombin Time Whole Bld POC 45.6 sec (11.1-13.5); ~PT, ~INR - Anti Coag Clinic 3.8 (0.9-1.1)
--- NOTE | 2023-09-09 08:59 | MHC.OFFVISCO ---
Intake Intake Visit Reasons: Anticoagulation Allergies vancomycin [VANCOMYCIN] Allergy (Intermediate, Verified 09/09/23 08:46) ITCHING/RASH metoclopramide [From Reglan] Adverse Reaction (Intermediate, Verified 09/09/23 08:46) Nausea and Vomiting Medication List - Last Reconciled 09/09/23 by Catherine Story RN albuterol sulfate 90 mcg/actuation 2 puffs inhalation Q4H PRN albuterol sulfate 2.5 mg inhalation Q8H PRN amlodipine 10 mg PO DAILY atorvastatin 40 mg PO DAILY azithromycin 250 MG TAB blood sugar diagnostic As directed cholecalciferol (vitamin D3) 25 mcg PO DAILY ezetimibe 10 mg PO DAILY food supplemt, lactose-reduced (Boost) PO hydrocortisone 2.5% appl topical magnesium oxide 400 mg PO DAILY metformin ER 1,000 mg PO BIDWM metoprolol succinate ER 50 mg PO DAILY mupirocin 2% topical BID omeprazole 20 mg PO BID 30 days ondansetron HCl 8 mg PO Q12H PRN oxcarbazepine 300 mg PO BID oxycodone 5 mg PO BEDTIME PRN umeclidinium 62.5 mcg/actuation (Incruse Ellipta) 1 inh inhalation DAILY warfarin 5 mg See Protocol PO DIRECTED Nursing Note Amb to [facility] feeling well, has upper endosccopy sched for 10/03 with lovenox bridge- sts she forgot instructions from Dr Merrill Medications and supplements reviewed No changes in health, diet, medications, or supplements Denies any unusual signs and symptoms of bruising, bleeding Denies any new Chest pain, SOB, or clotting INR: 3.8 above therapeutic range, denies any increase in Tylenol or less greens Nutritional guidance given: dark leafy green today, then balance greens and reds in diet Dose: decrease dose today to 2.5mg then resume usual dosing; 5mg x 2 days and 7.5mg x 5 days F/U INR: 1 week and BRING IN LOVENOX BRIDGING INSTRUCTIONS Patient verbalizes understanding of instructions given with accurate read back/ teach back of dosing Anti-Coag Initial Assessment Social Hx Patient Tobacco Use Status: Current everyday Tobacco user Tobacco use type: Cigarette alcohol intake: never Coding Level of Care Code Est Patient Level 1 Diagnoses Current use of anticoagulant therapy Z79.01 Time Spent (min) 15 Assessment & Plan Assessment & Plan (1) Current use of anticoagulant therapy: Onset Date: ~2019 Comment: (due to Stroke with PFO and factor 5 leiden) 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
== END 2023-09-09 09:04 | disposition home or self-care (01) ==
LOC: HO.ACS 08:46
PROVIDERS: PCP Internal Medicine; Visit Provider Internal Medicine
DX: Z79.01 Long term (current) use of anticoagulants (principal)

== ENCOUNTER → 2023-09-09 08:46 | Outpatient (BNVA) | payer MEDICARE, MEDICAID, SELFPAY | PROVIDERS: PCP Internal Medicine; Visit Provider Internal Medicine | DX: Z86.73 Personal history of transient ischemic attack (TIA), and cerebral infarction without residual deficits (principal); Z79.01 Long term (current) use of anticoagulants; Z51.81 Encounter for therapeutic drug level monitoring | CPT/HCPCS: 85610; 99211 ==

== ENCOUNTER 2023-09-16 09:12 | Outpatient (AMB) | payer MEDICARE, MEDICAID, SELFPAY ==
[2023-09-16 09:23] LABS: Prothrombin Time Whole Bld POC 29.6 sec (11.1-13.5); ~PT, ~INR - Anti Coag Clinic 2.5 (0.9-1.1)
--- NOTE | 2023-09-16 09:38 | MHC.OFFVISCO ---
Intake Intake Visit Reasons: Anticoagulation Allergies vancomycin [VANCOMYCIN] Allergy (Intermediate, Verified 09/16/23 09:19) ITCHING/RASH metoclopramide [From Reglan] Adverse Reaction (Intermediate, Verified 09/16/23 09:19) Nausea and Vomiting Medication List - Last Reconciled 09/16/23 by Catherine Bales, RN albuterol sulfate 90 mcg/actuation 2 puffs inhalation Q4H PRN albuterol sulfate 2.5 mg inhalation Q8H PRN amlodipine 10 mg PO DAILY atorvastatin 40 mg PO DAILY azithromycin 250 MG TAB blood sugar diagnostic As directed cholecalciferol (vitamin D3) 25 mcg PO DAILY ezetimibe 10 mg PO DAILY food supplemt, lactose-reduced (Boost) PO hydrocortisone 2.5% appl topical magnesium oxide 400 mg PO DAILY metformin ER 1,000 mg PO BIDWM metoprolol succinate ER 50 mg PO DAILY mupirocin 2% topical BID omeprazole 20 mg PO BID 30 days ondansetron HCl 8 mg PO Q12H PRN oxcarbazepine 300 mg PO BID oxycodone 5 mg PO BEDTIME PRN umeclidinium 62.5 mcg/actuation (Incruse Ellipta) 1 inh inhalation DAILY warfarin 5 mg See Protocol PO DIRECTED Nursing Note INR: 2.5 in therapeutic range of 2-3 Medications and supplements reviewed No changes in health, diet, medications, or supplements, Pt scheduled for endoscop[y an 10/03 and brought in written instructions by Dr Merrill regarding when to stop warfarin and start lovenox Denies any signs and symptoms of bleeding or bruising or clotting. Bleeding, bruising, clotting discussed Nutritional guidance given Dose: 5mg X2 days and 7.5mg X5 days F/U INR: 11 days Patient verbalizes understanding of instructions given Anti-Coag Initial Assessment Social Hx Patient Tobacco Use Status: Current everyday Tobacco user Tobacco use type: Cigarette alcohol intake: never Coding Level of Care Code Est Patient Level 1 Diagnoses Current use of anticoagulant therapy Z79.01 Assessment & Plan Assessment & Plan (1) Current use of anticoagulant therapy: Onset Date: ~2019 Comment: (due to Stroke with PFO and factor 5 leiden) Code(s): Z79.01 - custodial (current) use of anticoagulants Category: Medical
== END 2023-09-16 09:44 | disposition home or self-care (01) ==
LOC: HO.ACS 09:12
PROVIDERS: PCP Internal Medicine; Visit Provider Internal Medicine
DX: Z79.01 Long term (current) use of anticoagulants (principal)

== ENCOUNTER → 2023-09-16 09:12 | Outpatient (BNVA) | payer MEDICARE, MEDICAID, SELFPAY | PROVIDERS: PCP Internal Medicine; Visit Provider Internal Medicine | DX: Z86.73 Personal history of transient ischemic attack (TIA), and cerebral infarction without residual deficits (principal); Z79.01 Long term (current) use of anticoagulants; Z51.81 Encounter for therapeutic drug level monitoring | CPT/HCPCS: 85610; 99211 ==

== ENCOUNTER 2023-09-27 10:10 | Outpatient (AMB) | payer MEDICARE, MEDICAID, SELFPAY ==
[2023-09-27 10:25] LABS: ~PT, ~INR - Anti Coag Clinic 3.1 (0.9-1.1)
--- NOTE | 2023-09-27 10:57 | MHC.OFFVISCO ---
Intake Intake Visit Reasons: Anticoagulation Allergies vancomycin [VANCOMYCIN] Allergy (Intermediate, Verified 09/27/23 10:13) ITCHING/RASH metoclopramide [From Reglan] Adverse Reaction (Intermediate, Verified 09/27/23 10:13) Nausea and Vomiting Medication List - Last Reconciled 09/27/23 by Catherine Bales, RN albuterol sulfate 90 mcg/actuation 2 puffs inhalation Q4H PRN albuterol sulfate 2.5 mg inhalation Q8H PRN amlodipine 10 mg PO DAILY atorvastatin 40 mg PO DAILY azithromycin 250 MG TAB blood sugar diagnostic As directed cholecalciferol (vitamin D3) 25 mcg PO DAILY ezetimibe 10 mg PO DAILY food supplemt, lactose-reduced (Boost) PO hydrocortisone 2.5% appl topical magnesium oxide 400 mg PO DAILY metformin ER 1,000 mg PO BIDWM metoprolol succinate ER 50 mg PO DAILY mupirocin 2% topical BID omeprazole 20 mg PO BID 30 days ondansetron HCl 8 mg PO Q12H PRN oxcarbazepine 300 mg PO BID oxycodone 5 mg PO BEDTIME PRN umeclidinium 62.5 mcg/actuation (Incruse Ellipta) 1 inh inhalation DAILY warfarin 5 mg See Protocol PO DIRECTED Nursing Note INR 3.1?out of therapeutic range of2-3 Medications and supplements reviewed, no changes Patient status: no changes. Pt scheduled for endoscopy on 10/03 Instructions for warfarin hold/lovenox bridge ordered by Dr Merrill Medications or supplements: no changes Diet: no changes Denies any signs and symptoms of bleeding or clotting or unusual bruising Bleeding, bruising, clotting discussed Nutritional guidance given: No greens while off warfarin and post procedure Dose: decrease today to 2.5mg(7.5mg) then usual dose until hold day of 09/29 pre procedure F/U INR Date : 10/07/23 post procedure?? Patient verbalizing understanding of instructions given. 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
== END 2023-09-27 11:04 | disposition home or self-care (01) ==
LOC: HO.ACS 10:10
PROVIDERS: PCP Internal Medicine; Visit Provider Internal Medicine
DX: Z79.01 Long term (current) use of anticoagulants (principal)

== ENCOUNTER → 2023-09-27 10:10 | Outpatient (BNVA) | payer MEDICARE, MEDICAID, SELFPAY | PROVIDERS: PCP Internal Medicine; Visit Provider Internal Medicine | DX: Z45.018 Encounter for adjustment and management of other part of cardiac pacemaker (principal); R07.89 Other chest pain; Z86.73 Personal history of transient ischemic attack (TIA), and cerebral infarction without residual deficits; Z79.01 Long term (current) use of anticoagulants; Z51.81 Encounter for therapeutic drug level monitoring | CPT/HCPCS: 85610; 93005; 93280; 99211; 99212 ==

== ENCOUNTER 2023-09-27 13:20 | Outpatient (AMB) | payer MEDICARE, MEDICAID, SELFPAY ==
--- NOTE | 2023-09-27 13:28 | A.OFFVIS_ITS ---
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 Allergies vancomycin [VANCOMYCIN] Allergy (Intermediate, Verified 09/27/23 10:13) ITCHING/RASH metoclopramide [From Reglan] Adverse Reaction (Intermediate, Verified 09/27/23 10:13) Nausea and Vomiting Medication List - Last Reconciled 09/27/23 by Raad Chisholm MD albuterol sulfate 90 mcg/actuation 2 puffs inhalation Q4H PRN albuterol sulfate 2.5 mg inhalation Q8H PRN amlodipine 10 mg PO DAILY atorvastatin 40 mg PO DAILY azithromycin 250 MG TAB blood sugar diagnostic As directed cholecalciferol (vitamin D3) 25 mcg PO DAILY ezetimibe 10 mg PO DAILY food supplemt, lactose-reduced (Boost) PO hydrocortisone 2.5% appl topical magnesium oxide 400 mg PO DAILY metformin ER 1,000 mg PO BIDWM metoprolol succinate ER 50 mg PO DAILY mupirocin 2% topical BID omeprazole 20 mg PO BID 30 days ondansetron HCl 8 mg PO Q12H PRN oxcarbazepine 300 mg PO BID oxycodone 5 mg PO BEDTIME PRN umeclidinium 62.5 mcg/actuation (Incruse Ellipta) 1 inh inhalation DAILY warfarin 5 mg See Protocol PO DIRECTED HPI HPI Comments History of Present Illness Details Diane comes for follow-up. Few weeks ago she had episodes of lightheadedness while she was walking which lasted for about 10-15 seconds. Then subsequently 2 or 3 days following she had multiple episodes of what appears to be orthostatic lightheadedness that lasted for few seconds. She had no syncopal episodes. Following that a week later she had at rest sudden-onset retrosternal pressure in the chest radiating to the precordial area with lasted on and off for 15 minutes. She has had no recurrent symptoms. She continues to have discomfort symptoms when she swallows and she is currently undergoing GI workup as well. She has not had a full syncopal episode. No prolonged palpitation irregular heartbeat. No heart failure symptoms. Unfortunately she continues to smoke. [facility] Medical History History of colon polyps (~2009) Type II diabetes mellitus, well controlled Personal history of nicotine dependence Factor 5 Leiden mutation, heterozygous Obstructive sleep apnea on CPAP (~2008) Osteopenia (~2018) Pacemaker (~2021) History of CVA (cerebrovascular accident) (~2019) Hyperlipidemia PFO (patent foramen ovale) (~2019) HTN (hypertension) COPD (chronic obstructive pulmonary disease) Current use of anticoagulant therapy (~2019) Surgical History Hx of cystoscopy Hx of blepharoplasty History of esophagogastroduodenoscopy (EGD) History of colonoscopy History of unilateral oophorectomy History of cholecystectomy (~2000) History of pacemaker (~2021) History of bladder surgery (~1999) Family History Mother Stroke Multiple sclerosis Diabetes Father CAD (coronary artery disease) Social History Alcohol intake: never Patient Tobacco Use Status: Current everyday Tobacco user Tobacco use type: Cigarette Cigarettes Per Day: 5 Years Smoked: 40 +/- e-Cigarette/Vaping Use: Currently Using service: No Current occupational status: retired Review of Systems Const Denies chills, Denies fatigue, Denies fever(s), Denies frequent falls, Denies weakness, Denies weight gain and Denies weight loss ENT Denies dizziness Card Denies chest pain, Denies leg edema, Denies lightheadedness, Denies palpitations, Denies dyspnea, Denies dyspnea on exertion, Denies orthopnea and Denies other (loss of consciousness) Resp Denies cough, Denies dyspnea and Denies dyspnea on exertion GI Denies hematochezia and Denies change in stool character Musc Denies abnormal gait, Denies muscle weakness, Denies numbness, Denies radiating pain into limb and Denies tingling Neuro Denies abnormal gait, Denies dizziness, Denies frequent falls, Denies numbness, Denies tingling and Denies weakness Endo Denies fatigue and Denies palpitations Physical Exam Vital Signs: Last Vital Signs Pulse 84 09/27/23 13:29 BP 114/70 09/27/23 13:29 BMI result Body Mass Index 25.8 Const General: cooperative, healthy appearing, comfortable, no acute distress and anxious Orientation/consciousness: patient oriented x3 Neck Neck: Yes normal visual inspection and Yes no JVD Carotids: normal carotid upstroke Resp Effort & Inspection: normal respiratory effort Auscultation: clear to auscultation bilaterally, no crackles, no rales, no rhonchi and wheezes expiratory wheezes and right lower Cardio Jugular venous distension: no JVD Rate: tachycardic Rhythm: regular rhythm Heart sounds: S1 normal heart sound present, S2 normal heart sound present, no gallops, no murmurs and no rubs Peripheral pulses: Peripheral pulses 2+ throughout Neuro General: patient oriented x3 Extrem General: Yes normal to inspection, No no pedal edema and No calf tenderness Office Procedures Cardiac Device Check Cardiac Device Check Details: Dual-chamber Medtronic pacemaker in place programmed in DDD at 60 beats per minute. Atrial pacing 3.7% of the time. No arrhythmias noted. Atrial ventricular sensing is adequate. Atrial ventricular pacing thresholds excellent and atrial pacing thresholds reprogrammed to enhance battery life. Pacing lead impedance is stable. Battery life is excellent 20097-DX Cardiac Device Check, pacemaker dual lead Procedure code (CPT) selection complete EKG Details: EKG shows normal sinus rhythm normal EKG [id number], Complete Assessment & Plan Assessment & Plan (1) Atypical chest pain: Code(s): R07.89 - Other chest pain Plan: Atypical chest pain could be related to esophageal dysmotility syndrome. Although she is multiple risk factors and would suggest a vasodilating myocardial perfusion imaging as she can not exercise on a treadmill. This was discussed with her. She is agreeable to pursue the same. Further treatment based on the findings of the stress test. (2) Cardiac pacemaker in situ: Code(s): Z95.0 - Presence of cardiac pacemaker Plan: Cardiac pacemaker in-situ for sinus pauses. She has minimal use of pacemaker in the atrium. No arrhythmias noted. Will continue follow remotely every 3 months. Follow up in the clinic in 1 year's time. (3) History of CVA (cerebrovascular accident): Onset Date: ~2019 Comment: (Right embolic stroke while on ASA - acute cortical infarct right precentral gyrus - 09/19/2019) Code(s): Z86.73 - Personal history of transient ischemic attack (TIA), and cerebral infarction without residual deficits Plan: Prior CVA with PFO. Has been evaluated by PFO closure team at [facility] and is been told to continue medical therapy. Will complete smoking cessation advised. Blood pressure is currently well optimized. Advised to continue current therapy. Low-salt diet was discussed. Target goal blood pressure less than 130/84. Target goal LDL less than 70 mg/dL. Currently on warfarin therapy given PFO and prior stroke considered to be embolic. Target INR between 2 and 3 being followed by [facility]. Follow up in the clinic in 1 year's time, sooner p.r.n.. Thank you for allowing me to partake in the care Orders: Orders CA lexiscan stress w jerson Today R07.89 - Other chest pain Coding Level of Care Code Est Pt Level 4 (85201) Diagnoses Atypical chest pain R07.89 Cardiac pacemaker in situ Z95.0 History of CVA (cerebrovascular accident) Z86.73 CPT Codes Cardiac Device Check - Cardiac Device 2: 18690-[id number] Cardiac Device Check, pacemaker dual lead ([id number]) EKG - CPT: 57201-[id number], Complete ([id number])
[2023-09-27 13:29] VITALS: BP 114/70; PULSE 84; BMI 25.8
== END 2023-09-27 14:02 | disposition home or self-care (01) ==
PROVIDERS: PCP Internal Medicine; Visit Provider Internal Medicine Cardiovascular Disease
DX: R07.89 Other chest pain (principal); I45.5 Other specified heart block; Z95.0 Presence of cardiac pacemaker; Z86.73 Personal history of transient ischemic attack (TIA), and cerebral infarction without residual deficits
CPT/HCPCS: 93280; 99214

== ENCOUNTER 2023-10-04 12:29 | Day surgery (SDC) | payer MEDICARE, OTHER, SELFPAY ==
--- NOTE | 2023-10-03 09:49 | HO.ANESPROP2 ---
Documented by User: Bambi Diaz NP 10/03/23 11:42 HPI - Anesthesia Eval Consult details Narrative: 68yo F for Upper Endoscopy Pacer in situ for sinus pause Coumadin for Factor V, PFO, CVA - to bridge according to workload messages Follows [facility] cardiology. Last office visit 09/26/22. Stress test ordered for atypical CP. Per TigerText from Dr Chisholm 10/03/23: Her pain was fairly atypical and her likelihood of CAD is low. EGD is a low risk procedure so I don't see a clinical reason to postpone EGD [facility] Active Problems Active Problems: All Active Problems (Updated 09/27/23 @ 13:59 by Raad Chisholm MD) Atypical chest pain (Acute) Cellulitis of nose, external (Acute) Nausea (Acute) Abdominal pain (Acute) Fatigue (Acute) Tubular adenoma of colon (Acute) Esophageal dysmotility (Acute) GERD with esophagitis (Acute) Sinus tachycardia (Acute) Hypersomnia (Acute) Sinus pause (Acute) Dizziness (Acute) Cardiac pacemaker in situ (Acute) Dysphagia (Acute) Chronic diarrhea (Acute) Weight loss (Acute) Early satiety (Acute) Personal history of nicotine dependence (Acute) Current use of anticoagulant therapy (Acute ~2019) History of CVA (cerebrovascular accident) (Acute ~2019) PFO (patent foramen ovale) (Acute ~2019) HTN (hypertension) (Acute) Hyperlipidemia (Acute) Obstructive sleep apnea on CPAP (Acute ~2008) Osteopenia (Acute ~2018) Past Medical History Medical History History of colon polyps (~2009) Type II diabetes mellitus, well controlled Personal history of nicotine dependence Factor 5 Leiden mutation, heterozygous Obstructive sleep apnea on CPAP (~2008) Osteopenia (~2018) Pacemaker (~2021) History of CVA (cerebrovascular accident) (~2019) Hyperlipidemia PFO (patent foramen ovale) (~2019) HTN (hypertension) COPD (chronic obstructive pulmonary disease) Current use of anticoagulant therapy (~2019) Family History Family History Mother Stroke Multiple sclerosis Diabetes Father CAD (coronary artery disease) Family history of problems with anesthesia: No Surgical History Surgical History Hx of cystoscopy Hx of blepharoplasty History of esophagogastroduodenoscopy (EGD) History of colonoscopy History of unilateral oophorectomy History of cholecystectomy (~2000) History of pacemaker (~2021) History of bladder surgery (~1999) History of Problems with Anesthesia: No Social History Social History Alcohol intake: never Patient Tobacco Use Status: Current everyday Tobacco user Tobacco use type: Cigarette Cigarettes Per Day: 5 Years Smoked: 40 +/- e-Cigarette/Vaping Use: Currently Using Advance Directives: No Advance Directives Information Provided: Yes service: No Current occupational status: retired Meds Allergies Allergy/AdvReac Type Severity Reaction Status Date / Time vancomycin [VANCOMYCIN] Allergy Intermediate ITCHING/ELOY Verified 09/27/23 10:13 H metoclopramide [From Reglan] AdvReac Intermediate Nausea and Verified 09/27/23 10:13 Vomiting Home Medications Medication Instructions Recorded Confirmed Last Taken Type albuterol sulfate 90 mcg/actuation 2 puff inhalation Q4H PRN 07/02/20 10/04/23 06/04/22 History aerosol inhaler Shortness Of Breath atorvastatin 40 mg tablet 40 mg PO DAILY 07/21/20 10/04/23 Unknown History cholecalciferol (vitamin D3) 25 25 mcg PO DAILY 12/16/20 10/04/23 Unknown History mcg (1,000 unit) capsule blood sugar diagnostic #10 ea 01/14/21 09/27/23 Unknown History metformin 500 mg tablet,extended 1,000 mg PO BIDWM 07/21/21 10/04/23 Unknown History release 24 hr umeclidinium 62.5 mcg/actuation 1 inh inhalation DAILY 02/08/22 09/27/23 Unknown History blister powder for inhalation (Incruse Ellipta) albuterol sulfate 2.5 mg/3 mL 2.5 mg inhalation Q8H PRN wheezing 03/05/22 10/04/23 Unknown History (0.083 %) solution for nebulization warfarin 5 mg tablet 5 mg PO DIRECTED 03/23/22 09/27/23 09/28/23 History ondansetron HCl 8 mg tablet 8 mg PO Q12H PRN nausea and 09/08/22 09/27/23 Unknown History vomiting magnesium oxide 400 mg (241.3 mg 400 mg PO DAILY 10/21/22 10/04/23 Unknown History magnesium) tablet food supplemt, lactose-reduced PO 11/11/22 09/27/23 Unknown History [Boost] hydrocortisone 2.5 % topical cream appl topical 12/31/22 09/27/23 Unknown History mupirocin 2 % topical ointment topical BID 12/31/22 09/27/23 Unknown History oxcarbazepine 150 mg tablet 300 mg PO BID 12/31/22 09/27/23 Unknown History ezetimibe 10 mg tablet 10 mg PO DAILY 05/23/23 10/04/23 Unknown History oxycodone 5 mg tablet 5 mg PO BEDTIME PRN 05/23/23 09/27/23 Unknown History azithromycin 250 mg tablet 250 mg PO .COMPLEX 05/30/23 10/04/23 Unknown History Exam Pertinent Lab Results Pertinent Lab Results: Laboratory Tests 09/01/23 06:58 WBC 9.1 Hgb 13.3 Hct 40.8 Plt Count 272 Sodium 142 Potassium 4.1 Chloride 105 Carbon Dioxide 26 BUN 12 Creatinine 0.74 Narrative Narrative: Cardiac Device Check 09/27/23 Cardiac Device Check Details: Dual-chamber Medtronic pacemaker in place programmed in DDD at 60 beats per minute. Atrial pacing 3.7% of the time. No arrhythmias noted. Atrial ventricular sensing is adequate. Atrial ventricular pacing thresholds excellent and atrial pacing thresholds reprogrammed to enhance battery life. Pacing lead impedance is stable. Battery life is excellent [id number] Cardiac Device Check, pacemaker dual lead Procedure code (CPT) selection complete EKG 09/27/23 Details: EKG shows normal sinus rhythm normal EKG [id number], Complete ECHO 2022 Conclusions: - 1. Normal LV systolic function with grade 1 diastolic dysfunction 2. Normal cardiac valvular Doppler 3. Normal RV systolic pressure 4. No gross pericardial effusion Assessment and Plan Assessment Anesthesia Assessment: Chart Reviewed Final Anesthetic Review Family History of Problems with Anesthesia: No History of Problems with Anesthesia: No Documented by User: Dianna Nieves MD 10/04/23 13:45 [facility] Past Medical History Medical History History of colon polyps (~2009) Type II diabetes mellitus, well controlled Personal history of nicotine dependence Factor 5 Leiden mutation, heterozygous Obstructive sleep apnea on CPAP (~2008) Osteopenia (~2018) Pacemaker (~2021) History of CVA (cerebrovascular accident) (~2019) Hyperlipidemia PFO (patent foramen ovale) (~2019) HTN (hypertension) COPD (chronic obstructive pulmonary disease) Current use of anticoagulant therapy (~2019) Family History Family History Mother Stroke Multiple sclerosis Diabetes Father CAD (coronary artery disease) Surgical History Surgical History Hx of cystoscopy Hx of blepharoplasty History of esophagogastroduodenoscopy (EGD) History of colonoscopy History of unilateral oophorectomy History of cholecystectomy (~2000) History of pacemaker (~2021) History of bladder surgery (~1999) Social History Social History Alcohol intake: never Patient Tobacco Use Status: Current everyday Tobacco user Tobacco use type: Cigarette Cigarettes Per Day: 5 Years Smoked: 40 +/- e-Cigarette/Vaping Use: Currently Using Advance Directives: No Advance Directives Information Provided: Yes service: No Current occupational status: retired Meds Allergies Allergy/AdvReac Type Severity Reaction Status Date / Time vancomycin [VANCOMYCIN] Allergy Intermediate ITCHING/ELOY Verified 09/27/23 10:13 H metoclopramide [From Reglan] AdvReac Intermediate Nausea and Verified 09/27/23 10:13 Vomiting Home Medications Medication Instructions Recorded Confirmed Last Taken Type albuterol sulfate 90 mcg/actuation 2 puff inhalation Q4H PRN 07/02/20 10/04/23 06/04/22 History aerosol inhaler Shortness Of Breath atorvastatin 40 mg tablet 40 mg PO DAILY 07/21/20 10/04/23 Unknown History cholecalciferol (vitamin D3) 25 25 mcg PO DAILY 12/16/20 10/04/23 Unknown History mcg (1,000 unit) capsule blood sugar diagnostic #10 ea 01/14/21 09/27/23 Unknown History metformin 500 mg tablet,extended 1,000 mg PO BIDWM 07/21/21 10/04/23 Unknown History release 24 hr umeclidinium 62.5 mcg/actuation 1 inh inhalation DAILY 02/08/22 09/27/23 Unknown History blister powder for inhalation (Incruse Ellipta) albuterol sulfate 2.5 mg/3 mL 2.5 mg inhalation Q8H PRN wheezing 03/05/22 10/04/23 Unknown History (0.083 %) solution for nebulization warfarin 5 mg tablet 5 mg PO DIRECTED 03/23/22 09/27/23 09/28/23 History ondansetron HCl 8 mg tablet 8 mg PO Q12H PRN nausea and 09/08/22 09/27/23 Unknown History vomiting magnesium oxide 400 mg (241.3 mg 400 mg PO DAILY 10/21/22 10/04/23 Unknown History magnesium) tablet food supplemt, lactose-reduced PO 11/11/22 09/27/23 Unknown History [Boost] hydrocortisone 2.5 % topical cream appl topical 12/31/22 09/27/23 Unknown History mupirocin 2 % topical ointment topical BID 12/31/22 09/27/23 Unknown History oxcarbazepine 150 mg tablet 300 mg PO BID 12/31/22 09/27/23 Unknown History ezetimibe 10 mg tablet 10 mg PO DAILY 05/23/23 10/04/23 Unknown History oxycodone 5 mg tablet 5 mg PO BEDTIME PRN 05/23/23 09/27/23 Unknown History azithromycin 250 mg tablet 250 mg PO .COMPLEX 05/30/23 10/04/23 Unknown History Exam Airway Mallampati Class: II TM Dist: >3cm Neck ROM: Full Denture: Upper Loose/Missing/Broken Teeth: Yes and Upper Heart: RRR Lungs: CTA Assessment and Plan Assessment Anesthesia Assessment: Anesthesia Plan Discussed Final Anesthetic Review NPO: Yes ASA Class: III Final Preanesthetic Review: Meds/Allgs Chart Reviewed, Consent Obtained/Reviewed and Anes Risks/Benef Reviewed Patient Risk: Intermediate Procedure Risk: Intermediate Anesthetic Plan Anesthetic Plan: MAC: Disposition: Standard PACU
[2023-10-04 13:25] VITALS: BP 136/57; PULSE 72; RESP 18; TEMP 36.2; O2SAT 94; BMI 25.7
[2023-10-04 13:43] LABS: INTERNATIONAL NORM RATIO 0.9 (0.9-1.1); Prothrombin Time 10.8 SEC (11.1-13.3)
[2023-10-04 13:44] LABS: Glucose, Whole Blood 146 mg/dL (60-115)
--- NOTE | 2023-10-04 13:56 | MHC.SHP ---
Pre-Procedural Eval Section A - 24 Hr Update-Section A only Date of Service: 10/04/23 Section B - Complete if H&P > 30 days Chief Complaint: Unspecified abdominal pain,nausea Details of Present Illness: History of colon polyps (~2009) Type II diabetes mellitus, well controlled Personal history of nicotine dependence Factor 5 Leiden mutation, heterozygous Obstructive sleep apnea on CPAP (~2008) Osteopenia (~2018) Pacemaker (~2021) History of CVA (cerebrovascular accident) (~2019) Hyperlipidemia PFO (patent foramen ovale) (~2019) HTN (hypertension) COPD (chronic obstructive pulmonary disease) Current use of anticoagulant therapy (~2019) Surgical History History of bladder surgery (~1999) History of cholecystectomy (~2000) History of colonoscopy History of esophagogastroduodenoscopy (EGD) History of pacemaker (~2021) History of unilateral oophorectomy Hx of blepharoplasty Hx of cystoscopy Present Medications: see Short Stay Collaborative assessment Allergies: Allergies Allergy/AdvReac Type Severity Reaction Status Date / Time vancomycin [VANCOMYCIN] Allergy Intermediate ITCHING/ELOY Verified 09/27/23 10:13 H metoclopramide [From Reglan] AdvReac Intermediate Nausea and Verified 09/27/23 10:13 Vomiting Review of Systems Review of Systems Comment: Ten point ROS negative except as above Exam Exam Comment: Gen appear: No acute distress HEENT: no icterus Chest: No overt resp distress Abd: soft, nontender, nondistended Psych: Stable affect, answering questions appropriately Neuro: A/Ox3 noted to move all extremities spontaneously Ext: no peripheral edema Plan Diagnosis/Plan: Unchanged I have reviewed the history and physical and performed a pertinent physical examination on my patient. No changes have occurred unless specified. Time Spent With Patient Time: Total time managing care of this patient today ____ minutes.
[2023-10-04] MEDS: Lactated Ringers 1,000 ML 100 ML IVCONT (13:57)
--- NOTE | 2023-10-04 13:57 | P.OP_ITS ---
Operative Note Operative Note Date of Service: 10/04/23 Narrative: Procedure: Esophagogastroduodenoscopy Endoscopist: Shannon Mcadams MD Indication: Abd pain, nausea, dysphagia Anesthesia Provider: Dr Dianna Nieves Anesthesia Type: MAC ?? EGD Procedure:?? The procedure, indications, preparation and potential complications were reviewed with the patient, who indicated understanding and gave written informed consent to proceed. A physical exam was performed. The endoscope was introduced through the mouth, and advanced to the second part of duodenum. The mucosa was carefully examined on slow withdrawal of the endoscope. The patient tolerated the procedure well. There were no immediate complications.? ? EGD Findings:? * Esophagus:? Normal mucosa noted in the entire esophagus. The Z line was at 35 cm. A moderate sized hiatal hernia was noted with the diaphragmatic hiatus at 39 cm. * Stomach:? Erythema and small erosions with heme were noted in the stomach yaron in body and antrum.Random cold forceps gastric biopsies were taken to rule out H Pylori infection. * Duodenum:? Normal mucosa was noted in the whole of the examined duodenum. Additional intervention: A soft tip Savary wire was introduced through the gastroscope and advanced to the antrum. The gastroscope was then backed out. A Savary Dalia bougie was advanced over the guidewire and the esophagus was incrementally dilated from 18 mm to 20 mm. There was no resistance even at 20 mm. On relook, there was no tear or heme to suggest any narrowing. ? EGD Impressions:? * Normal esophagus (dilation) * Normal stomach (biopsy) * Normal duodenum Recommendations:?? * Follow biopsy results. Our office will call or send a letter with results within 7-10 days. * Resume PPI therapy. * Resume anticoagulation today. * Smoking cessation * Avoid NSAIDs Above has been reviewed with the patient. Relevant educational hand outs were provided at discharge.
[2023-10-04 14:28] VITALS: BP 91/43; PULSE 74; RESP 18; TEMP 36.1; O2SAT 98
[2023-10-04 14:43] VITALS: BP 100/49; PULSE 81; RESP 18; O2SAT 93
[2023-10-04 14:48] VITALS: BP 113/46; TEMP 36.4; O2SAT 94
== END 2023-10-04 15:11 | disposition home or self-care (01) ==
PROVIDERS: Nurse Practitioner; PCP Internal Medicine; Visit Provider Internal Medicine
PROC: 0DJ08ZZ Inspection of Upper Intestinal Tract, Via Natural or Artificial Opening Endoscopic (ICD-10-PCS; CPT 43235; principal; 2023-10-04 14:50)
DX: K29.70 Gastritis, unspecified, without bleeding (principal); K44.9 Diaphragmatic hernia without obstruction or gangrene; J44.9 Chronic obstructive pulmonary disease, unspecified; E11.9 Type 2 diabetes mellitus without complications; I10 Essential (primary) hypertension; E78.5 Hyperlipidemia, unspecified; G47.33 Obstructive sleep apnea (adult) (pediatric); Z99.89 Dependence on other enabling machines and devices; Z95.0 Presence of cardiac pacemaker; Z86.73 Personal history of transient ischemic attack (TIA), and cerebral infarction without residual deficits; Z79.01 Long term (current) use of anticoagulants
CPT/HCPCS: 43248; 43239; 36415; 82947; 85610; 88305; 88313; 88342; C1769; J2704

== ENCOUNTER → 2023-10-04 12:29 | Outpatient (BNV) | payer MEDICARE, MEDICAID, SELFPAY | PROVIDERS: PCP Internal Medicine; Visit Provider Internal Medicine | DX: R10.9 Unspecified abdominal pain (principal); R13.10 Dysphagia, unspecified; R11.0 Nausea | CPT/HCPCS: 43239; 43248 ==

== ENCOUNTER 2023-10-07 08:57 | Outpatient (AMB) | payer MEDICARE, SELFPAY ==
[2023-10-07 09:11] LABS: Prothrombin Time Whole Bld POC 15.7 sec (11.1-13.5); ~PT, ~INR - Anti Coag Clinic 1.3 (0.9-1.1)
--- NOTE | 2023-10-07 09:27 | MHC.OFFVISCO ---
Intake Intake Visit Reasons: Anticoagulation Allergies vancomycin [VANCOMYCIN] Allergy (Intermediate, Verified 10/07/23 09:00) ITCHING/RASH metoclopramide [From Reglan] Adverse Reaction (Intermediate, Verified 10/07/23 09:00) Nausea and Vomiting Medication List - Last Reconciled 10/07/23 by Vonda Cam RN albuterol sulfate 90 mcg/actuation 2 puffs inhalation Q4H PRN albuterol sulfate 2.5 mg inhalation Q8H PRN amantadine HCl 100 mg PO DAILY amlodipine 10 mg PO DAILY atorvastatin 40 mg PO DAILY azithromycin 250 MG TAB blood sugar diagnostic As directed cholecalciferol (vitamin D3) 25 mcg PO DAILY ezetimibe 10 mg PO DAILY food supplemt, lactose-reduced (Boost) PO hydrocortisone 2.5% appl topical magnesium oxide 400 mg PO DAILY metformin ER 1,000 mg PO BIDWM metoprolol succinate ER 50 mg PO DAILY mupirocin 2% topical BID omeprazole 20 mg PO DAILY 30 days ondansetron HCl 8 mg PO Q12H PRN oxcarbazepine 300 mg PO BID oxycodone 5 mg PO BEDTIME PRN umeclidinium 62.5 mcg/actuation (Incruse Ellipta) 1 inh inhalation DAILY warfarin 5 mg See Protocol PO DIRECTED Nursing Note INR: 1.3 OUT OF therapeutic range Medications and supplements reviewed- TOOK LOVENOX THIS AM ONLY HAS 1 LEFT, CALL TO PCP FOR REFILL No changes in health, diet, medications, or supplements, Denies any signs and symptoms of bleeding or bruising or clotting. Bleeding, bruising, clotting discussed Nutritional guidance given - AVOID ALL GREENS AND ENSURE THEY LOWER INR, HAVE FOODS TO HELP RAISE Dose: 10MG TODAY, 5G NOW THEN 5MG TONIGHT THEN RESUME USUAL DOSE 5MG X 2 DAYS/ 7.5MG X 5 DAYS F/U INR: 10/10/23 Patient verbalizes understanding of instructions given Anti-Coag Initial Assessment Social Hx Patient Tobacco Use Status: Current everyday Tobacco user Tobacco use type: Cigarette alcohol intake: never Coding Level of Care Code Est Patient Level 1 Diagnoses Current use of anticoagulant therapy Z79.01 Results AMB INR Fingerstick AMB INR Fingerstick 1.3 Last Edit by Vonda Cam RN on 10/07/23 09:13 NOTIFIDE Vonda Cam 10/07/23 09:13 MANUAL ENTRY Assessment & Plan Assessment & Plan (1) Current use of anticoagulant therapy: Onset Date: ~2019 Comment: (due to Stroke with PFO and factor 5 leiden) Code(s): 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
== END 2023-10-07 09:29 | disposition home or self-care (01) ==
LOC: HO.ACS 08:57
PROVIDERS: PCP Internal Medicine; Visit Provider Internal Medicine
DX: Z79.01 Long term (current) use of anticoagulants (principal)

== ENCOUNTER → 2023-10-07 08:57 | Outpatient (BNVA) | payer MEDICARE, MEDICAID, SELFPAY | PROVIDERS: PCP Internal Medicine; Visit Provider Internal Medicine | DX: Z86.73 Personal history of transient ischemic attack (TIA), and cerebral infarction without residual deficits (principal); Z79.01 Long term (current) use of anticoagulants; Z51.81 Encounter for therapeutic drug level monitoring | CPT/HCPCS: 85610; 99211 ==

== ENCOUNTER 2023-10-10 10:41 | Outpatient (AMB) | payer MEDICARE, SELFPAY ==
[2023-10-10 10:51] LABS: ~PT, ~INR - Anti Coag Clinic 1.8 (0.9-1.1)
--- NOTE | 2023-10-10 11:08 | MHC.OFFVISCO ---
Intake Intake Visit Reasons: Anticoagulation Allergies vancomycin [VANCOMYCIN] Allergy (Intermediate, Verified 10/10/23 10:47) ITCHING/RASH metoclopramide [From Reglan] Adverse Reaction (Intermediate, Verified 10/10/23 10:47) Nausea and Vomiting Nursing Note INR: 1.8 out of therapeutic range of 2-3 S/P Endoscopy on 10/04/23 Medications and supplements reviewed: no changes No changes in health, diet, medications, or supplements, Denies any signs and symptoms of bleeding or bruising or clotting. Bleeding, bruising, clotting discussed Nutritional guidance given to mehul gates next 3 days Dose: increase todays dose to 10 mg(7.5mg), then usual dose of 7.5mg on , 5mg on Tue and 7.5mg on , then retest Fri F/U INR: 4 days Patient verbalizes understanding of instructions given Anti-Coag Initial Assessment Social Hx Patient Tobacco Use Status: Current everyday Tobacco user Tobacco use type: Cigarette alcohol intake: never Coding Level of Care Code Est Patient Level 1 Diagnoses Current use of anticoagulant therapy Z79.01 Assessment & Plan Assessment & Plan (1) Current use of anticoagulant therapy: Onset Date: ~2019 Comment: (due to Stroke with PFO and factor 5 leiden) 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
== END 2023-10-10 11:13 | disposition home or self-care (01) ==
LOC: HO.ACS 10:41
PROVIDERS: PCP Internal Medicine; Visit Provider Internal Medicine
DX: Z79.01 Long term (current) use of anticoagulants (principal)

== ENCOUNTER → 2023-10-10 10:41 | Outpatient (BNVA) | payer MEDICARE, MEDICAID, SELFPAY | PROVIDERS: PCP Internal Medicine; Visit Provider Internal Medicine | DX: Z86.73 Personal history of transient ischemic attack (TIA), and cerebral infarction without residual deficits (principal); Z79.01 Long term (current) use of anticoagulants; Z51.81 Encounter for therapeutic drug level monitoring | CPT/HCPCS: 85610; 99211 ==

== ENCOUNTER 2023-10-14 11:17 | Outpatient (AMB) | payer MEDICARE, SELFPAY ==
[2023-10-14 11:42] LABS: Prothrombin Time Whole Bld POC 38.5 sec (11.1-13.5); ~PT, ~INR - Anti Coag Clinic 3.2 (0.9-1.1)
--- NOTE | 2023-10-14 11:54 | MHC.OFFVISCO ---
Intake Intake Visit Reasons: Anticoagulation Allergies vancomycin [VANCOMYCIN] Allergy (Intermediate, Verified 10/14/23 11:37) ITCHING/RASH metoclopramide [From Reglan] Adverse Reaction (Intermediate, Verified 10/14/23 11:37) Nausea and Vomiting Medication List - Last Reconciled 10/14/23 by Vonda Cam RN albuterol sulfate 90 mcg/actuation 2 puffs inhalation Q4H PRN albuterol sulfate 2.5 mg inhalation Q8H PRN amantadine HCl 100 mg PO DAILY amlodipine 10 mg PO DAILY atorvastatin 40 mg PO DAILY azithromycin 250 MG TAB blood sugar diagnostic As directed cholecalciferol (vitamin D3) 25 mcg PO DAILY ezetimibe 10 mg PO DAILY 90 days food supplemt, lactose-reduced (Boost) PO hydrocortisone 2.5% appl topical magnesium oxide 400 mg PO DAILY metformin ER 1,000 mg PO BIDWM metoprolol succinate ER 50 mg PO DAILY mupirocin 2% topical BID omeprazole 20 mg PO DAILY 30 days ondansetron HCl 8 mg PO Q12H PRN oxcarbazepine 300 mg PO BID oxycodone 5 mg PO BEDTIME PRN umeclidinium 62.5 mcg/actuation (Incruse Ellipta) 1 inh inhalation DAILY warfarin 5 mg See Protocol PO DIRECTED Nursing Note INR: 3.2 JUST OUT OF therapeutic range Medications and supplements reviewed WILL BE RESUME OMEPRAZOLE -WHICH CAN RAISE THE INR AND BOOST WHICH CAN LOWER THE INR No changes in health, diet, medications, or supplements, Denies any signs and symptoms of bleeding or bruising or clotting. Bleeding, bruising, clotting discussed Nutritional guidance given - RESUME WEEKLY BOOST Dose: RESUME 5MG X 2 DAYS/ 7.5MG X 5 DAYS F/U INR: 1 WEEK Patient verbalizes understanding of instructions given Anti-Coag Initial Assessment Social Hx Patient Tobacco Use Status: Current everyday Tobacco user Tobacco use type: Cigarette alcohol intake: never Coding Level of Care Code Est Patient Level 1 Diagnoses Current use of anticoagulant therapy Z79.01 Results AMB INR Fingerstick AMB INR Fingerstick 3.2 Last Edit by Vonda Cam RN on 10/14/23 11:46 MANUAL ENTRY NO INTERFACING Assessment & Plan Assessment & Plan (1) Current use of anticoagulant therapy: Onset Date: ~2019 Comment: (due to Stroke with PFO and factor 5 leiden) 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
== END 2023-10-14 12:00 | disposition home or self-care (01) ==
LOC: HO.ACS 11:17
PROVIDERS: PCP Internal Medicine; Visit Provider Internal Medicine
DX: Z79.01 Long term (current) use of anticoagulants (principal)

== ENCOUNTER → 2023-10-14 11:17 | Outpatient (BNVA) | payer MEDICARE, OTHER, SELFPAY | PROVIDERS: PCP Internal Medicine; Visit Provider Internal Medicine | DX: Z86.73 Personal history of transient ischemic attack (TIA), and cerebral infarction without residual deficits (principal); Z79.01 Long term (current) use of anticoagulants; Z51.81 Encounter for therapeutic drug level monitoring | CPT/HCPCS: 85610; 99211 ==

== ENCOUNTER 2023-10-19 10:56 | Outpatient (AMB) | payer MEDICARE, MEDICAID, SELFPAY ==
--- NOTE | 2023-10-19 10:59 | A.OFFVIS_ITS ---
Intake Vital Signs 10/19/23 11:02 Height 5 ft Weight 132 lb 4.438 oz BMI 25.8 BP 123/52 L Blood Pressure Location Lt brachial Position Sitting Pulse 86 Intake Visit Reasons: s/p egd Intake Note: Diane presents in the office as a follow up EGD. CC: She states that she is here for the results - she is not having any concerns. Allergies vancomycin [VANCOMYCIN] Allergy (Intermediate, Verified 10/19/23 11:00) ITCHING/RASH metoclopramide [From Reglan] Adverse Reaction (Intermediate, Verified 10/19/23 11:00) Nausea and Vomiting HPI HPI Comments History of Present Illness Details This is a 66-year-old female past medical history of COPD, factor 5 laden heterozygosity, PFO (not a candidate for closure), history of CVA, on warfarin, personal history of polyps, who presents to the office for post procedure follow up. Initial visit 05/03/22: Patient states that for the past 1 year, she has had tremendous fatigue, to the point where there are some days when she does not even have the energy to get out of bed. For the past 2-3 months, she has also been noticing increased bloating, early satiety, decreased appetite and nausea. Reports increased nausea and burping. She has lost around 15 lb during this time. This is also associated with loose watery diarrhea with urgency. Triggered by food intake. Nighttime symptoms present. At an average, has 5-6 liquidy bowel movements which are nonbloody. She thinks she may have had 1-2 black bowel movements last month. Most recent endoscopy was a colonoscopy by Dr. Casey 5-6 years ago per her report. Was told she had polyps and will be due for repeat in 5 years. Of note, previous endoscopy notes by Dr. Echavarria also mentions family history, but patient denies any family history of colon cancer in first-degree relatives. Sister has colon polyps. Of note, she also brings up chronic complaint of dysphagia. She has had this for many years. Describes it as a sensation of food getting stuck in middle of her chest causing immense pain and nausea. Previous workup as per report has in cluded barium study, upper endoscopy, motility study. All this was done more than 5 years ago and [facility]. She was told she possibly has esophageal spasm , but is not on any treatment. Patient was recently seen in the emergency room in January for fevers and left lower quadrant pain. CT scan was done that was read with stomach wall thickening, panc tail calcifications and L sided colitis. EGD/Colonoscopy 05/2022: * Grade A esophagitis * Esophageal spasms * Empiric Savary dilation to 20 mm? * Gastritis (biopsy) * Normal duodenum * Normal colon and terminal ileum mucosa * Total of 4 polyps removed from ascending, transverse colon and rectum. * Diverticulosis * External and internal hemorrhoids Path: A. Stomach, random, biopsy:? Oxyntic mucosa within normal limits; no Helicobacter organisms seen. B.? Colon, transverse, polypectomies (2):? Tubular adenomata; negative for high- grade dysplasia or carcinoma. C.? Colon, ascending, polypectomy:? Tubular adenoma; negative for high-grade dysplasia or carcinoma. D.? Rectum, polypectomy:? Hyperplastic mucosal polyp. 06/18/22: While the nausea, early satiety and weight loss seems to have stabilized after starting omeprazole, she continues to report intermittent sensation food getting stuck in her mid chest. Yesterday morning, also had severe episode of heartburn with regurgitation. Had a barium swallow yesterday, which has not been read yet. Reviewed medication use, has been taking omeprazole with meal, not before. Also continues to smoke. [place] [facility] [place]. 09/01/22: Motility study reviewed. Normal motility. Patient continues to complain of significant nausea and pain in her chest that radiates to her back. Associated with nausea but no vomiting or regurgitation. Nausea improves with food intake. Has had some more weight loss, although not to the same degree as before. This was also discussed with the patient over the phone last week, and a CT angio abdomen has already been ordered to rule out chronic mesenteric ischemia, she does have significant peripheral vascular disease (sees Dr. Venegas at [facility]). Labs reviewed, was noted to have elevated ESR January 2022. Reports has an appointment with the spindle repairer. Patient is quite frustrated that she has daily fatigue and very low energy to do anything. Continues to have sensation of difficulty swallowing and sensation of food getting stuck along with nausea without any unifying diagnosis. Also reports joint stiffness all over her body specially in the morning. Sometimes, even getting up the stairs is a huge task. 05/23/23: Reports had not followed up as had been feeling quite well. Abd discomfort and nausea had resolved. She had also gained her weight back. However the past few weeks feels that she now has a gnawing pain in the epigastric region assoc with nausea. Notices discomfort is worse when she is hungry. A week ago also noticed a different odor to her stool for a couple of days, but did not remember to actually look for the color of the stool. Continues to smoke - almost 4-5 cigs a day but trying to quit. No NSAIDs. 10/04/23: * Normal esophagus (dilation) * Normal stomach (biopsy) * Normal duodenum Diagnosis Stomach, biopsy: Antral-type and oxyntic mucosa with mild chronic inactive inflammation; no Helicobacter organisms seen. 10/19/23: Reports improvement in swallowing since empiric dilation. Nausea better as well. COnt to report postprandial discomfort and bloating with feeling of fullness. Patient also recently seen by Cardiology for symptoms of lightheadedness and atypical chest pain. Scheduled for a perfusion scan. [facility] Medical History History of colon polyps (~2009) Type II diabetes mellitus, well controlled Personal history of nicotine dependence Factor 5 Leiden mutation, heterozygous Obstructive sleep apnea on CPAP (~2008) Osteopenia (~2018) Pacemaker (~2021) History of CVA (cerebrovascular accident) (~2019) Hyperlipidemia PFO (patent foramen ovale) (~2019) HTN (hypertension) COPD (chronic obstructive pulmonary disease) Current use of anticoagulant therapy (~2019) Surgical History Hx of cystoscopy Hx of blepharoplasty History of esophagogastroduodenoscopy (EGD) History of colonoscopy History of unilateral oophorectomy History of cholecystectomy (~2000) History of pacemaker (~2021) History of bladder surgery (~1999) Family History Mother Stroke Multiple sclerosis Diabetes Father CAD (coronary artery disease) Social History Alcohol intake: never Patient Tobacco Use Status: Current everyday Tobacco user Tobacco use type: Cigarette Cigarettes Per Day: 4 Years Smoked: 40 +/- e-Cigarette/Vaping Use: Currently Using service: No Current occupational status: retired Review of Systems Const All systems reviewed & are unremarkable except as noted in HPI and below Physical Exam Vital Signs: Last Vital Signs Pulse 86 10/19/23 11:02 BP 123/52 L 10/19/23 11:02 BMI result Body Mass Index 25.8 A/Ox3 NAD Nonicteric ABd nondistended A/Ox3, normal gait Assessment & Plan Assessment & Plan (1) Abdominal pain: Code(s): R10.9 - Unspecified abdominal pain (2) Nausea: Code(s): R11.0 - Nausea (3) Postprandial distress syndrome: Code(s): K30 - Functional dyspepsia Plan Discussed with the patient that overall clinical presentation in the light of recent normal endoscopy most consistent with functional dyspepsia, likely postprandial distress syndrome given timing and nature of symptoms. In the absence of H pylori and lack of response to PPI, will proceed with trial of TCA. Plan: - Start nortriptyline 10 mg once daily at nighttime, to be increased to 20 mg after 2 weeks - Follow-up in office in 8 weeks through review response Medications: New nortriptyline Take 10mg at night for 2 weeks and then increase to 20mg at night 20 mg (2 x 10 mg) PO BEDTIME 90 caps 0RF K30 - Functional dyspepsia Coding Level of Care Code Est Pt Level 4 (98314) Diagnoses Abdominal pain R10.9 Nausea R11.0 Postprandial distress syndrome K30
[2023-10-19 11:02] VITALS: BP 123/52; PULSE 86; BMI 25.8
== END 2023-10-19 12:00 | disposition home or self-care (01) ==
PROVIDERS: PCP Internal Medicine; Visit Provider Internal Medicine
DX: R10.9 Unspecified abdominal pain (principal); R11.0 Nausea; K30 Functional dyspepsia
CPT/HCPCS: 99214

== ENCOUNTER → 2023-10-19 10:56 | Outpatient (BNVA) | payer MEDICARE, MEDICAID, SELFPAY | PROVIDERS: PCP Internal Medicine; Visit Provider Internal Medicine | DX: K30 Functional dyspepsia (principal); R10.9 Unspecified abdominal pain; R11.0 Nausea; Z86.010 Personal history of colon polyps; Z90.49 Acquired absence of other specified parts of digestive tract | CPT/HCPCS: 99212 ==

== ENCOUNTER 2023-10-21 08:37 | Outpatient (AMB) | payer MEDICARE, MEDICAID, SELFPAY ==
[2023-10-21 08:50] LABS: Prothrombin Time Whole Bld POC 25.1 sec (11.1-13.5); ~PT, ~INR - Anti Coag Clinic 2.1 (0.9-1.1)
--- NOTE | 2023-10-21 08:52 | MHC.OFFVISCO ---
Intake Intake Visit Reasons: Anticoagulation Allergies vancomycin [VANCOMYCIN] Allergy (Intermediate, Verified 10/21/23 08:42) ITCHING/RASH metoclopramide [From Reglan] Adverse Reaction (Intermediate, Verified 10/21/23 08:42) Nausea and Vomiting Medication List - Last Reconciled 10/21/23 by Anny Orta RN albuterol sulfate 90 mcg/actuation 2 puffs inhalation Q4H PRN albuterol sulfate 2.5 mg inhalation Q8H PRN amantadine HCl 100 mg PO DAILY amlodipine 10 mg PO DAILY atorvastatin 40 mg PO DAILY azithromycin 250 mg PO 3XW blood sugar diagnostic As directed cholecalciferol (vitamin D3) 25 mcg PO DAILY diclofenac sodium 1% topical ezetimibe 10 mg PO DAILY 90 days food supplemt, lactose-reduced (Boost) PO hydrocortisone 2.5% appl topical magnesium oxide 400 mg PO DAILY metformin ER 1,000 mg PO BIDWM metoprolol succinate ER 50 mg PO DAILY mupirocin 2% topical BID nortriptyline 20 mg (2 x 10 mg) PO BEDTIME omeprazole 20 mg PO DAILY 30 days ondansetron HCl 8 mg PO Q12H PRN oxcarbazepine 300 mg PO BID oxycodone 5 mg PO BEDTIME PRN umeclidinium 62.5 mcg/actuation (Incruse Ellipta) 1 inh inhalation DAILY warfarin 5 mg See Protocol PO DIRECTED Nursing Note INR: 2.1- in therapeutic range of 2-3 Medications and supplements reviewed- pt states taking omeprazole 20mg bid, started tue- this can raise inr per micromedex/delayed No changes in health, diet, or supplements, Denies any signs and symptoms of bleeding or bruising or clotting. 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
== END 2023-10-21 09:00 | disposition home or self-care (01) ==
LOC: HO.ACS 08:37
PROVIDERS: PCP Internal Medicine; Visit Provider Internal Medicine
DX: Z79.01 Long term (current) use of anticoagulants (principal)

== ENCOUNTER → 2023-10-21 08:37 | Outpatient (BNVA) | payer MEDICARE, MEDICAID, SELFPAY | PROVIDERS: PCP Internal Medicine; Visit Provider Internal Medicine | DX: Z86.73 Personal history of transient ischemic attack (TIA), and cerebral infarction without residual deficits (principal); Z79.01 Long term (current) use of anticoagulants; Z51.81 Encounter for therapeutic drug level monitoring | CPT/HCPCS: 85610; 99211 ==

== ENCOUNTER 2023-10-28 09:35 | Outpatient (AMB) | payer MEDICARE, MEDICAID, SELFPAY ==
--- NOTE | 2023-10-28 09:39 | MHC.OFFVISCO ---
Intake Intake Visit Reasons: Anticoagulation Allergies vancomycin [VANCOMYCIN] Allergy (Intermediate, Verified 10/28/23 09:35) ITCHING/RASH metoclopramide [From Reglan] Adverse Reaction (Intermediate, Verified 10/28/23 09:35) Nausea and Vomiting Medication List - Last Reconciled 10/28/23 by Anny Orta RN albuterol sulfate 90 mcg/actuation 2 puffs inhalation Q4H PRN albuterol sulfate 2.5 mg inhalation Q8H PRN amantadine HCl 100 mg PO DAILY amlodipine 10 mg PO DAILY atorvastatin 40 mg PO DAILY azithromycin 250 mg PO 3XW blood sugar diagnostic As directed cholecalciferol (vitamin D3) 25 mcg PO DAILY diclofenac sodium 1% topical ezetimibe 10 mg PO DAILY 90 days food supplemt, lactose-reduced (Boost) PO hydrocortisone 2.5% appl topical magnesium oxide 400 mg PO DAILY metformin ER 1,000 mg PO BIDWM metoprolol succinate ER 50 mg PO DAILY mupirocin 2% topical BID nortriptyline 20 mg (2 x 10 mg) PO BEDTIME omeprazole 20 mg PO BID 30 days ondansetron HCl 8 mg PO Q12H PRN oxcarbazepine 300 mg PO BID oxycodone 5 mg PO BEDTIME PRN umeclidinium 62.5 mcg/actuation (Incruse Ellipta) 1 inh inhalation DAILY warfarin 5 mg See Protocol PO DIRECTED Nursing Note INR 3.6-?? out of therapeutic range of 2-3 Medications and supplements reviewed Patient status: pt going to physical therapy for back pain Medications or supplements: omeprazole increased to bid one week ago nortriptyline 10mg daily ordered but pt not taking, to increase to 20mg daily after 2 weeks for post prandial distress syndrome Diet: same Denies any signs and symptoms of bleeding or clotting or unusual bruising Bleeding, bruising, clotting discussed Nutritional guidance given: eat greens to lower, no reds for 2 days Dose: reduce to 5mg today then reduce weekly dosing to 5mg x 3, 7.5mg x 4 F/U INR Date : 1 week?? pt having stress test on 11/03/23 Patient verbalizing understanding of instructions given. 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
[2023-10-28 09:40] LABS: Prothrombin Time Whole Bld POC 42.6 sec (11.1-13.5); ~PT, ~INR - Anti Coag Clinic 3.6 (0.9-1.1)
== END 2023-10-28 10:03 | disposition home or self-care (01) ==
LOC: HO.ACS 09:35
PROVIDERS: PCP Internal Medicine; Visit Provider Internal Medicine
DX: Z79.01 Long term (current) use of anticoagulants (principal)

== ENCOUNTER → 2023-10-28 09:35 | Outpatient (BNVA) | payer MEDICARE, MEDICAID, SELFPAY | PROVIDERS: PCP Internal Medicine; Visit Provider Internal Medicine | DX: Z86.73 Personal history of transient ischemic attack (TIA), and cerebral infarction without residual deficits (principal); Z79.01 Long term (current) use of anticoagulants; Z51.81 Encounter for therapeutic drug level monitoring | CPT/HCPCS: 85610; 99211 ==

== ENCOUNTER 2023-11-03 08:02 | Outpatient (AMB) | payer MEDICARE, MEDICAID, SELFPAY ==
[2023-11-03 08:12] LABS: Prothrombin Time Whole Bld POC 32.3 sec (11.1-13.5); ~PT, ~INR - Anti Coag Clinic 2.7 (0.9-1.1)
--- NOTE | 2023-11-03 08:22 | MHC.OFFVISCO ---
Intake Intake Visit Reasons: Anticoagulation Allergies vancomycin [VANCOMYCIN] Allergy (Intermediate, Verified 11/03/23 08:08) ITCHING/RASH metoclopramide [From Reglan] Adverse Reaction (Intermediate, Verified 11/03/23 08:08) Nausea and Vomiting Medication List - Last Reconciled 11/03/23 by Dianna Vazquez RN albuterol sulfate 90 mcg/actuation 2 puffs inhalation Q4H PRN albuterol sulfate 2.5 mg inhalation Q8H PRN amantadine HCl 100 mg PO DAILY amlodipine 10 mg PO DAILY atorvastatin 40 mg PO DAILY azithromycin 250 mg PO 3XW blood sugar diagnostic As directed cholecalciferol (vitamin D3) 25 mcg PO DAILY diclofenac sodium 1% topical ezetimibe 10 mg PO DAILY 90 days food supplemt, lactose-reduced (Boost) PO hydrocortisone 2.5% appl topical magnesium oxide 400 mg PO DAILY metformin ER 1,000 mg PO BIDWM metoprolol succinate ER 50 mg PO DAILY mupirocin 2% topical BID nortriptyline 20 mg (2 x 10 mg) PO BEDTIME omeprazole 20 mg PO BID 30 days ondansetron HCl 8 mg PO Q12H PRN oxcarbazepine 300 mg PO BID oxycodone 5 mg PO BEDTIME PRN umeclidinium 62.5 mcg/actuation (Incruse Ellipta) 1 inh inhalation DAILY warfarin 5 mg See Protocol PO DIRECTED Nursing Note NO CP,SOB,DIET/MED CHANGES,FALLS OR SX OF BLEEDING. CONTINUR PRESENT DOSE AND FOLLOW-UP IN 2 WEEKS. GOOD UNDERSTANDING OF DOSING INSTR. Anti-Coag Initial Assessment Social Hx Patient Tobacco Use Status: Current everyday Tobacco user Tobacco use type: Cigarette alcohol intake: never Coding Level of Care Code Est Patient Level 1 Diagnoses Current use of anticoagulant therapy Z79.01 Assessment & Plan Assessment & Plan (1) Current use of anticoagulant therapy: Onset Date: ~2019 Comment: (due to Stroke with PFO and factor 5 leiden) Code(s): Z79.01 - intermediate (current) use of anticoagulants Category: Medical
== END 2023-11-03 08:25 | disposition home or self-care (01) ==
LOC: HO.ACS 08:02
PROVIDERS: PCP Internal Medicine; Visit Provider Internal Medicine
DX: Z79.01 Long term (current) use of anticoagulants (principal)

== ENCOUNTER → 2023-11-03 08:24 | Outpatient (REF) | payer MEDICARE, MEDICAID, SELFPAY ==
--- NOTE | ~2023-11-03 | NM_ITS ---
Lexiscan Myocardial perfusion study Indication: Chest pain, assess for coronary disease and ischemia Technique: The patient was brought in for a Lexiscan perfusion study on 11/03/2023 and was injected 0.4 mg of Lexiscan intravenously. Within a minute of this injection 25 mCi of sestamibi was given intravenously. Images were obtained using the SPECT gamma camera interlaced with the gating device. Images were obtained in supine position. Resting perfusion study was performed on 11/04/2023. Patient was administered 25 mCi of sestamibi intravenously at rest. Images were then obtained in supine position. Images were processed with the software and compared side to side in short axis, horizontal long axis and vertical long axis views. Total DLP 73mGy-cm. Findings: Raw acquisition reviewed. The stress perfusion study showed no significant perfusion abnormality. There is subdiaphragmatic tracer adjacent to the inferior wall, but grossly no major findings. The gated study shows normal LV systolic function with calculated LVEF of 55%. LV cavity is normal in size. The gated study shows normal wall thickening and contraction of segments. Resting study shows no significant perfusion abnormality. There is subdiaphragmatic tracer uptake adjacent to the inferior wall.. Gating at rest reveals normal wall motion with ejection fraction at 55%. The findings are consistent with no clear reversible or fixed perfusion abnormality. NM/NM jerson perf SPECT rest & str Impression: 1. Myocardial perfusion imaging study shows probably normal myocardial perfusion. 2. Gated LVEF is 55% during stress and rest. 3. Transient ischemic dilatation not present. EKG component of the test reported separately.
--- NOTE | 2023-11-03 08:27 | CA_ITS ---
Acquisition Time: 2023-11-03 08:41:59 Total Exercise Time: 00:02:00 Test Indications: chest pain Medications: Protocol: LEXISCAN Max HR: 108 BPM 72% of Pred: 150 BPM Max BP: 134/058 mmHG Max Work Load: 1.0 METS Pharmacoligical stress test with Lexiscan injection while sitting and kicking her legs, without anginal symptoms, without arrhtyhmias, with normotensive response to injection, with nion diagnosiitic EKGs. Nuclear images pending. Test reviewed with Dr. Lucas. Referred By: Raad Chisholm Overread By: Anisa Iglesias
== END ==
LOC: HO.CARD 08:24
PROVIDERS: PCP Internal Medicine; Visit Provider Internal Medicine Cardiovascular Disease
DX: R07.89 Other chest pain (principal); Z86.73 Personal history of transient ischemic attack (TIA), and cerebral infarction without residual deficits; Z51.81 Encounter for therapeutic drug level monitoring; Z79.01 Long term (current) use of anticoagulants
CPT/HCPCS: 78452; 85610; 93017; 99211; A9500; J0280; J2785

== ENCOUNTER → 2023-11-03 08:27 | Outpatient (BNV) | payer MEDICARE, MEDICAID, SELFPAY | PROVIDERS: PCP Internal Medicine; Visit Provider Nurse Practitioner | DX: R07.9 Chest pain, unspecified (principal) | CPT/HCPCS: 78452; 93016; 93018 ==

== ENCOUNTER 2023-11-17 08:48 | Outpatient (AMB) | payer MEDICARE, MEDICAID, SELFPAY ==
[2023-11-17 09:02] LABS: Prothrombin Time Whole Bld POC 37.8 sec (11.1-13.5); ~PT, ~INR - Anti Coag Clinic 3.2 (0.9-1.1)
--- NOTE | 2023-11-17 09:07 | MHC.OFFVISCO ---
Intake Intake Visit Reasons: Anticoagulation Allergies vancomycin [VANCOMYCIN] Allergy (Intermediate, Verified 11/17/23 08:57) ITCHING/RASH metoclopramide [From Reglan] Adverse Reaction (Intermediate, Verified 11/17/23 08:57) Nausea and Vomiting Medication List - Last Reconciled 11/17/23 by Catherine Bales RN albuterol sulfate 90 mcg/actuation 2 puffs inhalation Q4H PRN albuterol sulfate 2.5 mg inhalation Q8H PRN amantadine HCl 100 mg PO DAILY amlodipine 10 mg PO DAILY atorvastatin 40 mg PO DAILY azithromycin 250 mg PO 3XW blood sugar diagnostic As directed cholecalciferol (vitamin D3) 25 mcg PO DAILY diclofenac sodium 1% topical ezetimibe 10 mg PO DAILY 90 days food supplemt, lactose-reduced (Boost) PO hydrocortisone 2.5% appl topical magnesium oxide 400 mg PO DAILY metformin ER 1,000 mg PO BIDWM metoprolol succinate ER 50 mg PO DAILY mupirocin 2% topical BID nortriptyline 20 mg (2 x 10 mg) PO BEDTIME omeprazole 20 mg PO BID 90 days ondansetron HCl 8 mg PO Q12H PRN oxcarbazepine 300 mg PO BID oxycodone 5 mg PO BEDTIME PRN umeclidinium 62.5 mcg/actuation (Incruse Ellipta) 1 inh inhalation DAILY warfarin 5 mg See Protocol PO DIRECTED Nursing Note INR: 3.2 in therapeutic range of 2-3 Medications and supplements reviewed no changes No changes in health, diet, medications, or supplements, Denies any signs and symptoms of bleeding or bruising or clotting. Bleeding, bruising, clotting discussed Nutritional guidance given to have greens today and tomorrow Dose: decrease today to 2.5mg (5mg) then resume usual dose of 7.5mg X 4 days and 5mg X3 days F/U INR: 1 week Patient verbalizes understanding of instructions given Anti-Coag Initial Assessment Social Hx Patient Tobacco Use Status: Current everyday Tobacco user Tobacco use type: Cigarette alcohol intake: never Coding Level of Care Code Est Patient Level 1 Diagnoses Current use of anticoagulant therapy Z79.01 Results AMB INR Fingerstick AMB INR Fingerstick 3.2 Last Edit by Catherine Bales RN on 11/17/23 09:03 interface delay Assessment & Plan Assessment & Plan (1) Current use of anticoagulant therapy: Onset Date: ~2019 Comment: (due to Stroke with PFO and factor 5 leiden) 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
== END 2023-11-17 10:11 | disposition home or self-care (01) ==
LOC: HO.ACS 08:48
PROVIDERS: PCP Internal Medicine; Visit Provider Internal Medicine
DX: Z79.01 Long term (current) use of anticoagulants (principal)

== ENCOUNTER → 2023-11-17 08:48 | Outpatient (BNVA) | payer MEDICARE, MEDICAID, SELFPAY | PROVIDERS: PCP Internal Medicine; Visit Provider Internal Medicine | DX: Z86.73 Personal history of transient ischemic attack (TIA), and cerebral infarction without residual deficits (principal); Z51.81 Encounter for therapeutic drug level monitoring; Z79.01 Long term (current) use of anticoagulants | CPT/HCPCS: 85610; 99211 ==

== ENCOUNTER 2023-11-25 08:44 | Outpatient (AMB) | payer MEDICARE, MEDICAID, SELFPAY ==
[2023-11-25 08:52] LABS: Prothrombin Time Whole Bld POC 32.2 sec (11.1-13.5); ~PT, ~INR - Anti Coag Clinic 2.7 (0.9-1.1)
--- NOTE | 2023-11-25 09:03 | MHC.OFFVISCO ---
Intake Intake Visit Reasons: Anticoagulation Allergies vancomycin [VANCOMYCIN] Allergy (Intermediate, Verified 11/25/23 08:46) ITCHING/RASH metoclopramide [From Reglan] Adverse Reaction (Intermediate, Verified 11/25/23 08:46) Nausea and Vomiting Medication List - Last Reconciled 11/25/23 by Dianna Vazquez RN albuterol sulfate 90 mcg/actuation 2 puffs inhalation Q4H PRN albuterol sulfate 2.5 mg inhalation Q8H PRN amantadine HCl 100 mg PO DAILY amlodipine 10 mg PO DAILY atorvastatin 40 mg PO DAILY azithromycin 250 mg PO 3XW blood sugar diagnostic As directed cholecalciferol (vitamin D3) 25 mcg PO DAILY diclofenac sodium 1% topical ezetimibe 10 mg PO DAILY 90 days food supplemt, lactose-reduced (Boost) PO hydrocortisone 2.5% appl topical magnesium oxide 400 mg PO DAILY metformin ER 1,000 mg PO BIDWM metoprolol succinate ER 50 mg PO DAILY mupirocin 2% topical BID nortriptyline 20 mg (2 x 10 mg) PO BEDTIME omeprazole 20 mg PO BID 90 days ondansetron HCl 8 mg PO Q12H PRN oxcarbazepine 300 mg PO BID oxycodone 5 mg PO BEDTIME PRN umeclidinium 62.5 mcg/actuation (Incruse Ellipta) 1 inh inhalation DAILY warfarin 5 mg See Protocol PO DIRECTED Nursing Note NO CP,SOB,DIET/MED CHANGES,FALLS OR SX OF BLEEDING. CONTINUE PRESENT DOSE AND FOLLOW-UP IN 2 WEEKS. GOOD UNDERSTANING OF DOSING INSTR. Anti-Coag Initial Assessment Social Hx Patient Tobacco Use Status: Current everyday Tobacco user Tobacco use type: Cigarette alcohol intake: never Coding Level of Care Code Est Patient Level 1 Diagnoses Current use of anticoagulant therapy Z79.01 Assessment & Plan Assessment & Plan (1) Current use of anticoagulant therapy: Onset Date: ~2019 Comment: (due to Stroke with PFO and factor 5 leiden) Code(s): Z79.01 - nursing home (current) use of anticoagulants Category: Medical
== END 2023-11-25 09:08 | disposition home or self-care (01) ==
LOC: HO.ACS 08:44
PROVIDERS: PCP Internal Medicine; Visit Provider Internal Medicine
DX: Z79.01 Long term (current) use of anticoagulants (principal)

== ENCOUNTER → 2023-11-25 08:44 | Outpatient (BNVA) | payer MEDICARE, MEDICAID, SELFPAY | PROVIDERS: PCP Internal Medicine; Visit Provider Internal Medicine | DX: Z86.73 Personal history of transient ischemic attack (TIA), and cerebral infarction without residual deficits (principal); Z51.81 Encounter for therapeutic drug level monitoring; Z79.01 Long term (current) use of anticoagulants | CPT/HCPCS: 85610; 99211 ==

== ENCOUNTER 2023-11-29 06:03 | Outpatient (REF) | payer MEDICARE, MEDICAID, SELFPAY ==
[2023-11-29 08:25] LABS: Anion Gap 17 (12-20); Blood Urea Nitrogen 14 mg/dL (9-16); Calcium 9.9 mg/dL (8.4-10.2); Carbon Dioxide 25 mmol/L (22-29); Chloride 105 mmol/L (96-108); Estimated Glomerular Filt Rate > 60; Glucose Random 149 mg/dL (60-115); Potassium 4.1 mmol/L (3.3-5.1); Sodium 143 mmol/L (135-145)
== END 2023-11-29 06:04 | disposition home or self-care (01) ==
LOC: HO.LAB 06:03
PROVIDERS: PCP Internal Medicine; Visit Provider Internal Medicine Cardiovascular Disease
DX: R07.89 Other chest pain (principal); I25.10 Atherosclerotic heart disease of native coronary artery without angina pectoris; Z86.73 Personal history of transient ischemic attack (TIA), and cerebral infarction without residual deficits
CPT/HCPCS: 36415; 80048

== ENCOUNTER → 2023-11-29 23:59 | Outpatient (BNV) | payer MEDICARE, MEDICAID, SELFPAY ==
--- NOTE | 2023-12-01 17:39 | MHC.OFFVIS ---
Intake Visit Reasons: Remote device check- [employer] Allergies vancomycin [VANCOMYCIN] Allergy (Intermediate, Verified 11/25/23 08:46) ITCHING/RASH metoclopramide [From Reglan] Adverse Reaction (Intermediate, Verified 11/25/23 08:46) Nausea and Vomiting PFSH Medical History History of colon polyps (~2009) Type II diabetes mellitus, well controlled Personal history of nicotine dependence Factor 5 Leiden mutation, heterozygous Obstructive sleep apnea on CPAP (~2008) Osteopenia (~2018) Pacemaker (~2021) History of CVA (cerebrovascular accident) (~2019) Hyperlipidemia PFO (patent foramen ovale) (~2019) HTN (hypertension) COPD (chronic obstructive pulmonary disease) Current use of anticoagulant therapy (~2019) Surgical History Hx of cystoscopy Hx of blepharoplasty History of esophagogastroduodenoscopy (EGD) History of colonoscopy History of unilateral oophorectomy History of cholecystectomy (~2000) History of pacemaker (~2021) History of bladder surgery (~1999) Family History Mother Stroke Multiple sclerosis Diabetes Father CAD (coronary artery disease) Social History Alcohol intake: never Patient Tobacco Use Status: Current everyday Tobacco user Tobacco use type: Cigarette Cigarettes Per Day: 4 Years Smoked: 40 +/- e-Cigarette/Vaping Use: Currently Using service: No Current occupational status: retired Office Procedures Cardiac Device Check Cardiac Device Check Details: Remote pacemaker report generated 11/29/2023. Pacemaker function is adequate [id number] Cardiac Device Interrogation, pacemaker Procedure code (CPT) selection complete Assessment & Plan Assessment & Plan (1) Cardiac pacemaker in situ: Code(s): Z95.0 - Presence of cardiac pacemaker Category: Medical Plan: See above Coding Level of Care Code Procedure Only Diagnoses Cardiac pacemaker in situ Z95.0 CPT Codes Cardiac Device Check - Cardiac Device 12: [id number] Cardiac Device Interrogation, pacemaker ([id number])
== END ==
PROVIDERS: PCP Internal Medicine; Visit Provider Internal Medicine Cardiovascular Disease
DX: Z45.018 Encounter for adjustment and management of other part of cardiac pacemaker (principal)
CPT/HCPCS: 93294

== ENCOUNTER 2023-12-03 08:41 | Outpatient (REF) | payer MEDICARE, MEDICAID, SELFPAY | END 2023-12-03 08:42 | disposition home or self-care (01) | LOC: HO.MAMMO 08:41 | PROVIDERS: PCP Internal Medicine; Visit Provider Internal Medicine | DX: Z12.31 Encounter for screening mammogram for malignant neoplasm of breast (principal) | CPT/HCPCS: 77063; 77067 ==

== ENCOUNTER → 2023-12-03 08:45 | Outpatient (BNV) | payer MEDICARE, MEDICAID, SELFPAY | PROVIDERS: PCP Internal Medicine; Visit Provider Radiology Diagnostic Radiology | DX: Z12.31 Encounter for screening mammogram for malignant neoplasm of breast (principal) | CPT/HCPCS: 77063; 77067 ==

== ENCOUNTER 2023-12-14 08:49 | Outpatient (AMB) | payer MEDICARE, MEDICAID, SELFPAY ==
--- NOTE | 2023-12-14 09:23 | MHC.OFFVISCO ---
Intake Intake Visit Reasons: Anticoagulation Allergies vancomycin [VANCOMYCIN] Allergy (Intermediate, Verified 12/14/23 09:18) ITCHING/RASH metoclopramide [From Reglan] Adverse Reaction (Intermediate, Verified 12/14/23 09:18) Nausea and Vomiting Medication List - Last Reconciled 12/14/23 by Anny Orta RN albuterol sulfate 90 mcg/actuation 2 puffs inhalation Q4H PRN albuterol sulfate 2.5 mg inhalation Q8H PRN amantadine HCl 100 mg PO DAILY amlodipine 10 mg PO DAILY atorvastatin 40 mg PO DAILY azithromycin 250 mg PO 3XW blood sugar diagnostic As directed cholecalciferol (vitamin D3) 25 mcg PO DAILY diclofenac sodium 1% topical ezetimibe 10 mg PO DAILY 90 days food supplemt, lactose-reduced (Boost) PO hydrocortisone 2.5% appl topical magnesium oxide 400 mg PO DAILY metformin ER 1,000 mg PO BIDWM metoprolol succinate ER 50 mg PO DAILY mupirocin 2% topical BID nortriptyline 20 mg (2 x 10 mg) PO BEDTIME 90 days omeprazole 20 mg PO BID 90 days ondansetron HCl 8 mg PO Q12H PRN oxcarbazepine 300 mg PO BID oxycodone 5 mg PO BEDTIME PRN umeclidinium 62.5 mcg/actuation (Incruse Ellipta) 1 inh inhalation DAILY warfarin 5 mg See Protocol PO DIRECTED Nursing Note INR 3.8-? out of therapeutic range of 2-3 Medications and supplements reviewed Patient status: pt states le edema Medications or supplements: no changes Diet: same, pt states no boost for 3 weeks Denies any signs and symptoms of bleeding or clotting or unusual bruising Bleeding, bruising, clotting discussed Nutritional guidance given: eat greens to lower Dose: 2.5mg today then 5mg x 3, 7.5mg x 4 F/U INR Date : 1 week? Patient verbalizing understanding of instructions given. 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
[2023-12-14 09:24] LABS: Prothrombin Time Whole Bld POC 45.5 sec (11.1-13.5); ~PT, ~INR - Anti Coag Clinic 3.8 (0.9-1.1)
== END 2023-12-14 09:35 | disposition home or self-care (01) ==
LOC: HO.ACS 08:49
PROVIDERS: PCP Internal Medicine; Visit Provider Internal Medicine
DX: Z79.01 Long term (current) use of anticoagulants (principal)

== ENCOUNTER → 2023-12-14 08:49 | Outpatient (BNVA) | payer MEDICARE, MEDICAID, SELFPAY | PROVIDERS: PCP Internal Medicine; Visit Provider Internal Medicine | DX: Z86.73 Personal history of transient ischemic attack (TIA), and cerebral infarction without residual deficits (principal); Z79.01 Long term (current) use of anticoagulants; Z51.81 Encounter for therapeutic drug level monitoring | CPT/HCPCS: 85610; 99211 ==

== ENCOUNTER 2023-12-19 13:04 | Outpatient (AMB) | payer MEDICARE, MEDICAID, SELFPAY ==
[2023-12-19 13:14] LABS: Prothrombin Time Whole Bld POC 31.4 sec (11.1-13.5); ~PT, ~INR - Anti Coag Clinic 2.6 (0.9-1.1)
--- NOTE | 2023-12-19 13:25 | MHC.OFFVISCO ---
Intake Intake Visit Reasons: Anticoagulation Allergies vancomycin [VANCOMYCIN] Allergy (Intermediate, Verified 12/19/23 13:06) ITCHING/RASH metoclopramide [From Reglan] Adverse Reaction (Intermediate, Verified 12/19/23 13:06) Nausea and Vomiting Medication List - Last Reconciled 12/19/23 by Vonda Cam RN albuterol sulfate 90 mcg/actuation 2 puffs inhalation Q4H PRN albuterol sulfate 2.5 mg inhalation Q8H PRN amantadine HCl 100 mg PO DAILY amlodipine 10 mg PO DAILY atorvastatin 40 mg PO DAILY azithromycin 250 mg PO 3XW blood sugar diagnostic As directed cholecalciferol (vitamin D3) 25 mcg PO DAILY diclofenac sodium 1% topical ezetimibe 10 mg PO DAILY 90 days food supplemt, lactose-reduced (Boost) PO hydrocortisone 2.5% appl topical magnesium oxide 400 mg PO DAILY metformin ER 1,000 mg PO BIDWM metoprolol succinate ER 50 mg PO DAILY mupirocin 2% topical BID nortriptyline 20 mg (2 x 10 mg) PO BEDTIME 90 days omeprazole 20 mg PO BID 90 days ondansetron HCl 8 mg PO Q12H PRN oxcarbazepine 300 mg PO BID oxycodone 5 mg PO BEDTIME PRN pramipexole mg PO umeclidinium 62.5 mcg/actuation (Incruse Ellipta) 1 inh inhalation DAILY warfarin 5 mg See Protocol PO DIRECTED Nursing Note INR 2.6 out of therapeutic range Medications and supplements reviewed Patient status: RESUMED BOOST, HAS A BLACK TONGUE ON TOP SURFACE - ? MAY BE FROM FROSTING OR SOMETHING - PT WILL TRY TO CLEAN IT OFF AND IF NOT WILL DOCTOR Medications or supplements: NO CHANGES Diet: RESUMED BOOST Denies any signs and symptoms of bleeding or clotting or unusual bruising Bleeding, bruising, clotting discussed Nutritional guidance given: EAT A MIX OF FRUITS AND VEGETABLES AND KEEP WEEKLY BOOST Dose: 5MG X 3 DAYS/ 7.5MG X 4 DAYS F/U INR Date : 10 DAY S DUE TO LABILE INR ? Patient verbalizing understanding of instructions given. 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
== END 2023-12-19 13:29 | disposition home or self-care (01) ==
LOC: HO.ACS 13:04
PROVIDERS: PCP Internal Medicine; Visit Provider Internal Medicine
DX: Z79.01 Long term (current) use of anticoagulants (principal)

== ENCOUNTER → 2023-12-19 13:04 | Outpatient (BNVA) | payer MEDICARE, MEDICAID, SELFPAY | PROVIDERS: PCP Internal Medicine; Visit Provider Internal Medicine | DX: Z86.73 Personal history of transient ischemic attack (TIA), and cerebral infarction without residual deficits (principal); Z79.01 Long term (current) use of anticoagulants; Z51.81 Encounter for therapeutic drug level monitoring | CPT/HCPCS: 85610; 99211 ==

== ENCOUNTER 2023-12-29 08:57 | Outpatient (AMB) | payer MEDICARE, MEDICAID, SELFPAY ==
[2023-12-29 09:14] LABS: Prothrombin Time Whole Bld POC 38.2 sec (11.1-13.5); ~PT, ~INR - Anti Coag Clinic 3.2 (0.9-1.1)
--- NOTE | 2023-12-29 09:17 | MHC.OFFVISCO ---
Intake Intake Visit Reasons: Anticoagulation Allergies vancomycin [VANCOMYCIN] Allergy (Intermediate, Verified 12/29/23 09:07) ITCHING/RASH metoclopramide [From Reglan] Adverse Reaction (Intermediate, Verified 12/29/23 09:07) Nausea and Vomiting Medication List - Last Reconciled 12/29/23 by Catherine Story RN albuterol sulfate 90 mcg/actuation 2 puffs inhalation Q4H PRN albuterol sulfate 2.5 mg inhalation Q8H PRN amantadine HCl 100 mg PO DAILY amlodipine 10 mg PO DAILY atorvastatin 40 mg PO DAILY azithromycin 250 mg PO 3XW blood sugar diagnostic As directed cholecalciferol (vitamin D3) 25 mcg PO DAILY diclofenac sodium 1% topical ezetimibe 10 mg PO DAILY 90 days food supplemt, lactose-reduced (Boost) PO hydrocortisone 2.5% appl topical magnesium oxide 400 mg PO DAILY metformin ER 1,000 mg PO BIDWM metoprolol succinate ER 50 mg PO DAILY mupirocin 2% topical BID nortriptyline 20 mg (2 x 10 mg) PO BEDTIME 90 days omeprazole 20 mg PO BID 90 days ondansetron HCl 8 mg PO Q12H PRN oxcarbazepine 300 mg PO BID oxycodone 5 mg PO BEDTIME PRN pramipexole mg PO umeclidinium 62.5 mcg/actuation (Incruse Ellipta) 1 inh inhalation DAILY warfarin 5 mg See Protocol PO DIRECTED Nursing Note Amb to [facility] feeling stressed sts she is here early because she got a last minute appt with cardiology at 1000 Medications and supplements reviewed No changes in health, medications, or supplements, indicates she has been eating a lot of cherries and strawberries this week sts she has been drinking Boost about 3 times a week Denies any signs and symptoms of bleeding, bruising, or clotting. IN 3.2 above therapeutic range will continue usual dosing 5mg x 3 days and 7.5mg x 4 days Nutritional guidance given no reds today or tomorrow, have a good cooked green today, be aware of the summer reds that raise and be consistent with Boost and greens F/U INR: 2 weeks Patient verbalizes understanding of instructions given Anti-Coag Initial Assessment Social Hx Patient Tobacco Use Status: Current everyday Tobacco user Tobacco use type: Cigarette alcohol intake: never Coding Level of Care Code Est Patient Level 1 Diagnoses Current use of anticoagulant therapy Z79.01 Time Spent (min) 15 Assessment & Plan Assessment & Plan (1) Current use of anticoagulant therapy: Onset Date: ~2019 Comment: (due to Stroke with PFO and factor 5 leiden) Code(s): Z79.01 - [facility] (current) use of anticoagulants Category: Medical
== END 2023-12-29 09:24 | disposition home or self-care (01) ==
LOC: HO.ACS 08:57
PROVIDERS: PCP Internal Medicine; Visit Provider Internal Medicine
DX: Z79.01 Long term (current) use of anticoagulants (principal)

== ENCOUNTER → 2023-12-29 08:57 | Outpatient (BNVA) | payer MEDICARE, MEDICAID, SELFPAY | PROVIDERS: PCP Internal Medicine; Visit Provider Internal Medicine | DX: R07.89 Other chest pain (principal); R53.83 Other fatigue; Z95.0 Presence of cardiac pacemaker; Z86.73 Personal history of transient ischemic attack (TIA), and cerebral infarction without residual deficits; Z79.01 Long term (current) use of anticoagulants; Z51.81 Encounter for therapeutic drug level monitoring | CPT/HCPCS: 85610; 99211; 99212 ==

== ENCOUNTER 2023-12-29 09:39 | Outpatient (AMB) | payer MEDICARE, MEDICAID, SELFPAY ==
[2023-12-29 10:07] VITALS: BP 120/62; PULSE 79; BMI 26.3
--- NOTE | 2023-12-29 10:07 | A.OFFVIS_ITS ---
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 Allergies vancomycin [VANCOMYCIN] Allergy (Intermediate, Verified 12/29/23 10:10) ITCHING/RASH metoclopramide [From Reglan] Adverse Reaction (Intermediate, Verified 12/29/23 10:10) Nausea and Vomiting Medication List - Last Reconciled 12/29/23 by LUISA Ashraf albuterol sulfate 90 mcg/actuation 2 puffs inhalation Q4H PRN albuterol sulfate 2.5 mg inhalation Q8H PRN amantadine HCl 100 mg PO DAILY amlodipine 10 mg PO DAILY atorvastatin 40 mg PO DAILY azithromycin 250 mg PO 3XW blood sugar diagnostic As directed cholecalciferol (vitamin D3) 25 mcg PO DAILY diclofenac sodium 1% topical ezetimibe 10 mg PO DAILY 90 days food supplemt, lactose-reduced (Boost) PO hydrocortisone 2.5% appl topical magnesium oxide 400 mg PO DAILY metformin ER 1,000 mg PO BIDWM metoprolol succinate ER 50 mg PO DAILY mupirocin 2% topical BID nortriptyline 20 mg (2 x 10 mg) PO BEDTIME 90 days omeprazole 20 mg PO BID 90 days ondansetron HCl 8 mg PO Q12H PRN oxcarbazepine 300 mg PO BID oxycodone 5 mg PO BEDTIME PRN pramipexole mg PO umeclidinium 62.5 mcg/actuation (Incruse Ellipta) 1 inh inhalation DAILY warfarin 5 mg See Protocol PO DIRECTED HPI HPI follow-up CTA: Details: Diane is a 68-year-old female with past medical history of hypertension, hyperlip idemia, diabetes, sleep apnea with CPAP use, PFO, TIA, on anticoagulation, pacemaker, COPD who reported chest discomfort and now presents for follow-up after recent CTA of the coronary arteries. Today she reports that she does get some mild random discomfort in her anterior chest. She said overall it is better than what she previously reported. She has chronic issues with fatigue and shortness of breath and wears her CPAP consistently at night and when napping in the daytime. No heart palpitations, presyncope, syncope, falls. No PND, orthopnea. She has been noticing some bilateral mild lower leg edema. Her activity is limited by her fatigue. She naps frequently during the day and has to rest after doing things such as this office visit. Taking meds as directed. [facility] Medical History History of colon polyps (~2009) Type II diabetes mellitus, well controlled Personal history of nicotine dependence Factor 5 Leiden mutation, heterozygous Obstructive sleep apnea on CPAP (~2008) Osteopenia (~2018) Pacemaker (~2021) History of CVA (cerebrovascular accident) (~2019) Hyperlipidemia PFO (patent foramen ovale) (~2019) HTN (hypertension) COPD (chronic obstructive pulmonary disease) Current use of anticoagulant therapy (~2019) Surgical History Hx of cystoscopy Hx of blepharoplasty History of esophagogastroduodenoscopy (EGD) History of colonoscopy History of unilateral oophorectomy History of cholecystectomy (~2000) History of bladder surgery (~1999) History of pacemaker (~2021) Family History Mother Stroke Multiple sclerosis Diabetes Father CAD (coronary artery disease) Social History Alcohol intake: never Patient Tobacco Use Status: Current everyday Tobacco user Tobacco use type: Cigarette Cigarettes Per Day: 4 Years Smoked: 40 +/- e-Cigarette/Vaping Use: Currently Using service: No Current occupational status: retired Review of Systems Const All systems reviewed & are unremarkable except as noted in HPI and below Reports daytime sleepiness, Reports difficulty sleeping and Reports fatigue ENT Denies dizziness Card Denies chest pain, Denies chest pain at rest, Denies chest pain with activity, Denies rapid heart rate, Reports pedal edema, Denies edema, Reports leg edema, Denies lightheadedness, Denies palpitations, Reports dyspnea, Reports dyspnea on exertion and Denies orthopnea Resp Denies cough, Reports dyspnea and Reports dyspnea on exertion GI Denies hematochezia and Denies change in stool character Musc Denies abnormal gait, Denies limited range of motion, Denies muscle cramps, Denies muscle weakness, Denies numbness, Denies radiating pain into limb, Denies stiffness and Denies tingling Neuro Denies abnormal gait, Denies dizziness, Denies numbness and Denies tingling Endo Reports fatigue and Denies palpitations Physical Exam Vital Signs: Last Vital Signs Pulse 79 12/29/23 10:07 BP 120/62 12/29/23 10:07 BMI result Body Mass Index 26.3 Const General: cooperative, healthy appearing, comfortable and no acute distress Orientation/consciousness: patient oriented x3 Neck Neck: Yes normal visual inspection and Yes no JVD Resp Effort & Inspection: normal respiratory effort Auscultation: clear to auscultation bilaterally, no crackles, no rales, no rhonchi and no wheezes Cardio Jugular venous distension: no JVD Rate: regular rate Rhythm: regular rhythm Heart sounds: S1 normal heart sound present, S2 normal heart sound present, no murmurs and no rubs Neuro General: patient oriented x3 Extrem General: Yes normal to inspection, No no pedal edema and No calf tenderness Psych Appearance: grossly normal Mental Status: mental status grossly normal Speech and movement: Normal speech and movement present Assessment & Plan Assessment & Plan (1) Atypical chest pain: Code(s): R07.89 - Other chest pain Category: Medical Plan: On last visit reported some Atypical chest pain. She does have multiple cardiac risk factors including hypertension, hyperlipidemia, diabetes, age. She did undergo a pharmacological nuclear stress test on 11/04/2023 which showed probable normal myocardial perfusion imaging, EF 55%. She continued to have symptoms along with reports of chronic fatigue and shortness of breath. She then had a CTA of the coronary arteries done on 12/09/23 showing mild left main stenosis, moderate proximal to mid LAD stenosis, distal LAD obscured by metal artifact from pacemaker wires, ramus with focal heavy calcification, proximal 50-70% stenosis, left circumflex small vessel, RCA proximal to mid obscured by metal artifact from pacemaker, remainder of vessel with no plaque or stenosis. She also had findings of ground-glass and subsolid nodules in the left upper lobe measuring up to 8 mm which are new from 424, probable infectious/inflammatory, mild tree-in-bud nodularity left upper lobe suggesting bronchiolitis. These results reviewed with her in detail. She has a copy of the results in hand. Informed her of the diagnosis moderate coronary artery disease. She tells me her chest discomfort has improved. Discussed diagnostic cardiac catheterization for further evaluation and she declines at this time. Signs and symptoms of angina reviewed with her. Will continue on med management. She does not need aspirin as she is on Coumadin. She is on atorvastatin and Zetia with ideal LDL goal less than 70. Last labs done 09/01/2023 showed LDL 73, prior to that LDL was 62. Typically is well controlled. She is on metoprolol XL 50 mg daily and amlodipine 10 mg daily. Blood pressure is well controlled. Cardiology follow- up in 3 months to re-evaluate symptoms, sooner if needed. (2) Cardiac pacemaker in situ: Code(s): Z95.0 - Presence of cardiac pacemaker Category: Medical Plan: Cardiac pacemaker in-situ for sinus pauses. She has minimal use of pacemaker in the atrium. No arrhythmias noted. Will continue follow remotely every 3 months. Office interrogation done last month. Next office interrogation due in 11 months. (3) History of CVA (cerebrovascular accident): Onset Date: ~2019 Comment: (Right embolic stroke while on ASA - acute cortical infarct right precentral gyrus - 09/19/2019) Code(s): Z86.73 - Personal history of transient ischemic attack (TIA), and cerebral infarction without residual deficits Category: Medical Plan: History of CVA with PFO. Has been evaluated by PFO closure team at [facility] and is been told to continue medical therapy. Currently on warfarin therapy given PFO and prior stroke considered to be embolic. Target INR between 2 and 3 being followed by [facility]. No bleeding issues reported (4) Fatigue: Code(s): R53.83 - Other fatigue Category: Medical Plan: Chronic fatigue type symptoms. Needs to nap in the daytime. Does wear her CPAP at night. Tells me she does have an upcoming evaluation by a sleep medicine provider. Plan Time spent on chart review, documentation, interview and assessment Coding Level of Care Code Est Pt Level 4 (42548) Diagnoses Atypical chest pain R07.89 Cardiac pacemaker in situ Z95.0 History of CVA (cerebrovascular accident) Z86.73 Fatigue R53.83 Time Spent (min) 36
== END 2023-12-29 10:58 | disposition home or self-care (01) ==
PROVIDERS: PCP Internal Medicine; Visit Provider Nurse Practitioner Family
DX: R07.89 Other chest pain (principal); Z95.0 Presence of cardiac pacemaker; Z86.73 Personal history of transient ischemic attack (TIA), and cerebral infarction without residual deficits; R53.83 Other fatigue
CPT/HCPCS: 99214

== ENCOUNTER 2024-01-11 06:45 | Outpatient (REF) | payer MEDICARE, MEDICAID, SELFPAY ==
[2024-01-11 07:08] LABS: MANUAL DIFF FLAG NO
[2024-01-11 07:20] LABS: Basophils Absolute Auto 0.1 X10*3/uL (0.0-0.2); Basophils Percent Auto 0.5 % (0-2); Eosinophils Absolute Auto 0.2 X10*3/uL (0.0-0.4); Eosinophils Percent Auto 2.5 % (0-4); Hematocrit 39.9 % (37.0-47.0); Hemoglobin 13.3 g/dl (12.0-16.0); Imm Gran Abs Auto 0.03 X10*3/uL (0.00-0.03); Imm Gran Pct Auto 0.3 % (0.0-0.4); Lymphocytes Percent Auto 33.1 % (20-40); Mean Corpuscular HGB Conc 33.3 g/dl (31.0-35.0); Mean Corpuscular Hemoglobin 30.6 pg (27.0-33.0); Mean Corpuscular Volume 91.9 fL (80.0-98.0); Mean Platelet Volume 8.9 fL (9.4-12.3); Monocytes Absolute Auto 0.9 X10*3/uL (0.1-1.2); Monocytes Percent Auto 9.4 % (2-11); Neutrophils Percent Auto 54.2 % (45-73); Platelet Count 281 X10*3/uL (160-400); Red Blood Count 4.34 X10*6/uL (4.20-5.50); Red Cell Distribution Width 13.7 % (11.0-16.0); White Blood Count 9.2 X10*3/uL (4.8-10.8)
[2024-01-11 07:31] LABS: Estimated Average Glucose 157 mg/dL; Hemoglobin A1c % 7.1 % (<6.0)
[2024-01-11 07:52] LABS: Alanine Aminotransferase 13 U/L (0-31); Albumin Level 4.2 g/dL (3.5-5.0); Alkaline Phosphatase 85 U/L (39-117); Anion Gap 16 (12-20); Aspartate Amino Transferase 16 U/L (5-31); Bilirubin Total 0.3 mg/dL (0.0-1.0); Blood Urea Nitrogen 13 mg/dL (9-16); Calcium 10.1 mg/dL (8.4-10.2); Carbon Dioxide 28 mmol/L (22-29); Chloride 101 mmol/L (96-108); Estimated Glomerular Filt Rate > 60; Glucose Random 151 mg/dL (60-115); Potassium 4.6 mmol/L (3.3-5.1); Sodium 140 mmol/L (135-145); Total Protein 7.5 g/dL (6.5-8.0)
[2024-01-11 08:04] LABS: Erythrocyte Sedimentation Rate 44 MM/HR (0-20)
[2024-01-11 08:14] LABS: Creatinine Urine 100.33 mg/dL; Microalbum/Creatinine Ratio Ur 11.9 ug/mg cr (<30)
== END 2024-01-11 06:46 | disposition home or self-care (01) ==
LOC: HO.LAB 06:45
PROVIDERS: PCP Internal Medicine; Visit Provider Internal Medicine
DX: M54.42 Lumbago with sciatica, left side (principal); M54.41 Lumbago with sciatica, right side; G89.29 Other chronic pain; M79.651 Pain in right thigh; E11.9 Type 2 diabetes mellitus without complications; I10 Essential (primary) hypertension
CPT/HCPCS: 36415; 80053; 82043; 82570; 83036; 85025; 85652

== ENCOUNTER 2024-01-12 09:12 | Outpatient (AMB) | payer MEDICARE, MEDICAID, SELFPAY ==
[2024-01-12 09:44] LABS: Prothrombin Time Whole Bld POC 29.2 sec (11.1-13.5); ~PT, ~INR - Anti Coag Clinic 2.4 (0.9-1.1)
--- NOTE | 2024-01-12 10:12 | MHC.OFFVISCO ---
Intake Intake Visit Reasons: Anticoagulation Allergies vancomycin [VANCOMYCIN] Allergy (Intermediate, Verified 01/12/24 09:37) ITCHING/RASH metoclopramide [From Reglan] Adverse Reaction (Intermediate, Verified 01/12/24 09:37) Nausea and Vomiting Medication List - Last Reconciled 01/12/24 by Catherine Bales RN albuterol sulfate 90 mcg/actuation 2 puffs inhalation Q4H PRN albuterol sulfate 2.5 mg inhalation Q8H PRN amantadine HCl 100 mg PO DAILY amlodipine 10 mg PO DAILY atorvastatin 40 mg PO DAILY azithromycin 250 mg PO 3XW blood sugar diagnostic As directed cholecalciferol (vitamin D3) 25 mcg PO DAILY diclofenac sodium 1% topical enoxaparin (Lovenox) 60 mg (0.6 mL) subcut BID 8 days ezetimibe 10 mg PO DAILY 90 days food supplemt, lactose-reduced (Boost) PO hydrocortisone 2.5% appl topical magnesium oxide 400 mg PO DAILY metformin ER 1,000 mg PO BIDWM metoprolol succinate ER 50 mg PO DAILY mupirocin 2% topical BID nortriptyline 20 mg (2 x 10 mg) PO BEDTIME 90 days omeprazole 20 mg PO BID 90 days ondansetron HCl 8 mg PO Q12H PRN oxcarbazepine 300 mg PO BID oxycodone 5 mg PO BEDTIME PRN pramipexole mg PO umeclidinium 62.5 mcg/actuation (Incruse Ellipta) 1 inh inhalation DAILY warfarin 5 mg See Protocol PO DIRECTED Nursing Note INR: 2.4 in therapeutic range of 2-3 Medications and supplements reviewed No changes in health, diet, medications, or supplements, Denies any signs and symptoms of bleeding or bruising or clotting. Bleeding, bruising, clotting discussed Nutritional guidance given to continue to balance greens and reds Dose: 7.5mg X 4 days and 5mg X 3 days F/U INR: 2 weeks Patient verbalizes understanding of instructions given Anti-Coag Initial Assessment Social Hx Patient Tobacco Use Status: Current everyday Tobacco user Tobacco use type: Cigarette alcohol intake: never Coding Level of Care Code Est Patient Level 2 Diagnoses Current use of anticoagulant therapy Z79.01 Results AMB INR Fingerstick AMB INR Fingerstick 2.4 Last Edit by Catherine Bales RN on 01/12/24 09:44 interface delay Assessment & Plan Assessment & Plan (1) Current use of anticoagulant therapy: Onset Date: ~2019 Comment: (due to Stroke with PFO and factor 5 leiden) 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
== END 2024-01-12 10:23 | disposition home or self-care (01) ==
LOC: HO.ACS 09:12
PROVIDERS: PCP Internal Medicine; Visit Provider Internal Medicine
DX: Z79.01 Long term (current) use of anticoagulants (principal)

== ENCOUNTER → 2024-01-12 09:12 | Outpatient (BNVA) | payer MEDICARE, MEDICAID, SELFPAY | PROVIDERS: PCP Internal Medicine; Visit Provider Internal Medicine | DX: Z86.73 Personal history of transient ischemic attack (TIA), and cerebral infarction without residual deficits (principal); Z79.01 Long term (current) use of anticoagulants; Z51.81 Encounter for therapeutic drug level monitoring | CPT/HCPCS: 85610; 99212 ==

== ENCOUNTER 2024-01-18 06:01 | Outpatient (REF) | payer MEDICARE, MEDICAID, SELFPAY ==
[2024-01-18 06:20] LABS: MANUAL DIFF FLAG NO
[2024-01-18 07:41] LABS: Basophils Absolute Auto 0.1 X10*3/uL (0.0-0.2); Basophils Percent Auto 0.8 % (0-2); Eosinophils Absolute Auto 0.3 X10*3/uL (0.0-0.4); Eosinophils Percent Auto 3.1 % (0-4); Hematocrit 40.4 % (37.0-47.0); Hemoglobin 13.1 g/dl (12.0-16.0); Imm Gran Abs Auto 0.03 X10*3/uL (0.00-0.03); Imm Gran Pct Auto 0.3 % (0.0-0.4); Lymphocytes Absolute Auto 3.2 X10*3/uL (1.2-4.9); Mean Corpuscular HGB Conc 32.4 g/dl (31.0-35.0); Mean Corpuscular Hemoglobin 30.9 pg (27.0-33.0); Mean Corpuscular Volume 95.3 fL (80.0-98.0); Mean Platelet Volume 9.6 fL (9.4-12.3); Monocytes Absolute Auto 0.9 X10*3/uL (0.1-1.2); Monocytes Percent Auto 10.1 % (2-11); Neutrophils Absolute Auto 4.2 x10*3/uL (2.0-8.3); Neutrophils Percent Auto 48.7 % (45-73); Platelet Count 297 X10*3/uL (160-400); Red Blood Count 4.24 X10*6/uL (4.20-5.50); Red Cell Distribution Width 14.1 % (11.0-16.0); White Blood Count 8.6 X10*3/uL (4.8-10.8)
[2024-01-18 07:45] LABS: INTERNATIONAL NORM RATIO 2.1 (0.9-1.1); Prothrombin Time 25.9 SEC (11.1-13.3)
[2024-01-18 07:59] LABS: Anion Gap 14 (12-20); Blood Urea Nitrogen 14 mg/dL (9-16); Calcium 9.8 mg/dL (8.4-10.2); Carbon Dioxide 27 mmol/L (22-29); Chloride 107 mmol/L (96-108); Estimated Glomerular Filt Rate > 60; Glucose Random 148 mg/dL (60-115); Potassium 4.2 mmol/L (3.3-5.1); Sodium 144 mmol/L (135-145)
== END 2024-01-18 06:02 | disposition home or self-care (01) ==
LOC: HO.LAB 06:01
PROVIDERS: PCP Internal Medicine; Visit Provider Nurse Practitioner Family
DX: I25.10 Atherosclerotic heart disease of native coronary artery without angina pectoris (principal); R07.89 Other chest pain
CPT/HCPCS: 36415; 80048; 85025; 85610

== ENCOUNTER 2024-01-23 09:09 | Outpatient (AMB) | payer MEDICARE, MEDICAID, SELFPAY ==
[2024-01-23 09:41] LABS: Prothrombin Time Whole Bld POC 36.4 sec (11.1-13.5)
--- NOTE | 2024-01-23 09:52 | MHC.OFFVISCO ---
Intake Intake Visit Reasons: Anticoagulation Allergies vancomycin [VANCOMYCIN] Allergy (Intermediate, Verified 01/23/24 09:33) ITCHING/RASH metoclopramide [From Reglan] Adverse Reaction (Intermediate, Verified 01/23/24 09:33) Nausea and Vomiting Medication List - Last Reconciled 01/23/24 by Vonda Cam RN albuterol sulfate 90 mcg/actuation 2 puffs inhalation Q4H PRN albuterol sulfate 2.5 mg inhalation Q8H PRN amantadine HCl 100 mg PO DAILY amlodipine 10 mg PO DAILY atorvastatin 40 mg PO DAILY azithromycin 250 mg PO 3XW blood sugar diagnostic As directed cholecalciferol (vitamin D3) 25 mcg PO DAILY diclofenac sodium 1% topical enoxaparin (Lovenox) 60 mg See Protocol subcut BID 8 days ezetimibe 10 mg PO DAILY 90 days food supplemt, lactose-reduced (Boost) PO hydrocortisone 2.5% appl topical magnesium oxide 400 mg PO DAILY metformin ER 1,000 mg PO BIDWM metoprolol succinate ER 50 mg PO DAILY mupirocin 2% topical BID nortriptyline 20 mg (2 x 10 mg) PO BEDTIME 90 days omeprazole 20 mg PO BID 90 days ondansetron HCl 8 mg PO Q12H PRN oxcarbazepine 300 mg PO BID oxycodone 5 mg PO BEDTIME PRN pramipexole mg PO umeclidinium 62.5 mcg/actuation (Incruse Ellipta) 1 inh inhalation DAILY warfarin 5 mg See Protocol PO DIRECTED Nursing Note INR: 3.0 in therapeutic range Has warfarin lovenox bridge instructions 01/24 last dose of warfarin 01/26 start lovenox 01/29 last dose lovenox in am 01/30 procedure 01/31 resume warfarin and lovenox per md or sooner per 10mg wed 7.5mg thur chk INR tuesday02/03/24 Medications and supplements reviewed No changes in health, diet, medications, or supplements, Denies any signs and symptoms of bleeding or bruising or clotting. Bleeding, bruising, clotting discussed Nutritional guidance given - have a green or boost today Dose: same until 01/26/24 hold for procedure with lovneox bridge to resume or per F/U INR: 02/03/24 Patient verbalizes understanding of instructions given Anti-Coag Initial Assessment Social Hx Patient Tobacco Use Status: Current everyday Tobacco user Tobacco use type: Cigarette alcohol intake: never Questionnaires HAS-BLED Does the patient had uncontrolled Hypertension?: No Does the patient have renal disease?: No Does the patient have liver disease?: No Does the patient have a history of stroke?: Yes Has the patient had major bleeding or predisposition to bleeding?: Yes Does the patient have labile INRs?: Yes Is the patient over 65 years of age?: Yes Is the patient on medications that gives them a predisposition to bleeding?: Yes Does the patient use alcohol?: No HAS-BLED Score: 5 CHADSVASC Age: 66-74 Gender: Female Does the patient have a history of CHF?: No Does the patient have a history of Hypertension?: Yes Does the patient have a history of Stroke/TIA/Thromboembolism?: Yes Does the patient have a history of Vascular Disease (prior [place], PAD or aortic plaque)?: Yes (CAD - SMOKER) Does the patient have a history of Diabetes?: Yes CHADS VACS Score: 7 Bharath Prediction Score Rsk VTE Active Cancer: No Previous VTE, excluding superficial vein thrombosis: No Reduced mobility: No Already known Thrombophilic Condition: No With-in last month Trauma and/or Surgery: No Elderly 70 year or older: Yes Heart and/or Respiratory Failure: No Acute Myocardial infarction and/or Ischemic Stroke: Yes Acute Infection and/or Rheumatologic Disorder: No Obesity (BMI 30 or greater): No Ongoing Hormonal Treatment: No Score: 2 Bharath Score less than 4; Low Risk of VTE Bharath Score 4 or greater; High Risk of VTE Coding Level of Care Code Est Patient Level 1 Diagnoses Current use of anticoagulant therapy Z79.01 Assessment & Plan Assessment & Plan (1) Current use of anticoagulant therapy: Onset Date: ~2019 Comment: (due to Stroke with PFO and factor 5 leiden) Code(s): Z79.01 - custodial (current) use of anticoagulants Category: Medical
== END 2024-01-23 09:56 | disposition home or self-care (01) ==
LOC: HO.ACS 09:09
PROVIDERS: PCP Internal Medicine; Visit Provider Internal Medicine
DX: Z79.01 Long term (current) use of anticoagulants (principal)

== ENCOUNTER → 2024-01-23 09:09 | Outpatient (BNVA) | payer MEDICARE, MEDICAID, SELFPAY | PROVIDERS: PCP Internal Medicine; Visit Provider Internal Medicine | DX: Z86.73 Personal history of transient ischemic attack (TIA), and cerebral infarction without residual deficits (principal); Z51.81 Encounter for therapeutic drug level monitoring; Z79.01 Long term (current) use of anticoagulants | CPT/HCPCS: 85610; 99211 ==

== ENCOUNTER → 2024-01-31 23:59 | Outpatient (BNV) | payer MEDICARE, MEDICAID, SELFPAY | PROVIDERS: PCP Internal Medicine; Visit Provider Internal Medicine Cardiovascular Disease | DX: I25.118 Atherosclerotic heart disease of native coronary artery with other forms of angina pectoris (principal) | CPT/HCPCS: 92928; 93458; 99152 ==

== ENCOUNTER 2024-02-03 08:53 | Outpatient (AMB) | payer MEDICARE, MEDICAID, SELFPAY ==
[2024-02-03 09:06] LABS: Prothrombin Time Whole Bld POC 23.9 sec (11.1-13.5)
--- NOTE | 2024-02-03 09:06 | MHC.OFFVISCO ---
Intake Intake Visit Reasons: Anticoagulation Allergies vancomycin [VANCOMYCIN] Allergy (Intermediate, Verified 02/03/24 08:58) ITCHING/RASH metoclopramide [From Reglan] Adverse Reaction (Intermediate, Verified 02/03/24 08:58) Nausea and Vomiting Medication List - Last Reconciled 02/03/24 by Anny Orta RN albuterol sulfate 90 mcg/actuation 2 puffs inhalation Q4H PRN albuterol sulfate 2.5 mg inhalation Q8H PRN amantadine HCl 100 mg PO DAILY amlodipine 10 mg PO DAILY atorvastatin 40 mg PO DAILY azithromycin 250 mg PO 3XW blood sugar diagnostic As directed cholecalciferol (vitamin D3) 25 mcg PO DAILY clopidogrel (Plavix) 75 mg PO DAILY diclofenac sodium 1% topical ezetimibe 10 mg PO DAILY 90 days food supplemt, lactose-reduced (Boost) PO hydrocortisone 2.5% appl topical magnesium oxide 400 mg PO DAILY metformin ER 1,000 mg PO BIDWM metoprolol succinate ER 50 mg PO DAILY mupirocin 2% topical BID nortriptyline 20 mg (2 x 10 mg) PO BEDTIME 90 days omeprazole 20 mg PO BID 90 days ondansetron HCl 8 mg PO Q12H PRN oxcarbazepine 300 mg PO BID oxycodone 5 mg PO BEDTIME PRN pramipexole mg PO umeclidinium 62.5 mcg/actuation (Incruse Ellipta) 1 inh inhalation DAILY warfarin 5 mg See Protocol PO DIRECTED Nursing Note INR: 2.0- in therapeutic range of 2-3 Medications and supplements reviewed- plavix 75mg dly, d/c asa per cardiology as inr is 2.0 No changes in health, diet, medications, or supplements, Denies any signs and symptoms of bleeding or bruising or clotting. Bleeding, bruising, clotting discussed Nutritional guidance given - no greens for 2 days, eat a red today Dose: reg dosing-5mg x 3, 7.5mg x 4 F/U INR: 1 week Patient verbalizes understanding of instructions given pt s/p cardiac cath with stent on 01/31/24- pt on plavix 75mg daily and asa 81mg dly post procedure and dr figueroa d/c lovenox post proc. pt took 10mg warfarin on and 7.5mg warfarin tue and . bruise inner wrist right hand noted. 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
== END 2024-02-03 09:19 | disposition home or self-care (01) ==
LOC: HO.ACS 08:53
PROVIDERS: PCP Internal Medicine; Visit Provider Internal Medicine
DX: Z79.01 Long term (current) use of anticoagulants (principal)

== ENCOUNTER → 2024-02-03 08:53 | Outpatient (BNVA) | payer MEDICARE, MEDICAID, SELFPAY | PROVIDERS: PCP Internal Medicine; Visit Provider Internal Medicine | DX: Z86.73 Personal history of transient ischemic attack (TIA), and cerebral infarction without residual deficits (principal); Z79.01 Long term (current) use of anticoagulants; Z51.81 Encounter for therapeutic drug level monitoring | CPT/HCPCS: 85610; 99212 ==

== ENCOUNTER 2024-02-09 09:02 | Outpatient (AMB) | payer MEDICARE, MEDICAID, SELFPAY ==
[2024-02-09 09:28] LABS: Prothrombin Time Whole Bld POC 33.1 sec (11.1-13.5); ~PT, ~INR - Anti Coag Clinic 2.8 (0.9-1.1)
--- NOTE | 2024-02-09 09:38 | MHC.OFFVISCO ---
Intake Intake Visit Reasons: Anticoagulation Allergies vancomycin [VANCOMYCIN] Allergy (Intermediate, Verified 02/09/24 09:20) ITCHING/RASH metoclopramide [From Reglan] Adverse Reaction (Intermediate, Verified 02/09/24 09:20) Nausea and Vomiting Medication List - Last Reconciled 02/09/24 by Vonda Cam RN albuterol sulfate 90 mcg/actuation 2 puffs inhalation Q4H PRN albuterol sulfate 2.5 mg inhalation Q8H PRN amantadine HCl 100 mg PO DAILY amlodipine 10 mg PO DAILY atorvastatin 40 mg PO DAILY azithromycin 250 mg PO 3XW blood sugar diagnostic As directed cholecalciferol (vitamin D3) 25 mcg PO DAILY clopidogrel (Plavix) 75 mg PO DAILY diclofenac sodium 1% topical ezetimibe 10 mg PO DAILY 90 days food supplemt, lactose-reduced (Boost) PO hydrocortisone 2.5% appl topical magnesium oxide 400 mg PO DAILY metformin ER 1,000 mg PO BIDWM metoprolol succinate ER 50 mg PO DAILY mupirocin 2% topical BID nortriptyline 20 mg (2 x 10 mg) PO BEDTIME 90 days omeprazole 20 mg PO BID 90 days ondansetron HCl 8 mg PO Q12H PRN oxcarbazepine 300 mg PO BID oxycodone 5 mg PO BEDTIME PRN pramipexole mg PO umeclidinium 62.5 mcg/actuation (Incruse Ellipta) 1 inh inhalation DAILY warfarin 5 mg See Protocol PO DIRECTED Nursing Note INR: 2.9 in therapeutic range S/P CARDIAC CATH FROM LAST WEEK, SHE STATES SHE DOES NOT NOTICE ANYTHIG DIFFERENT, STATE SHE IS STILL SOB Medications and supplements reviewed No changes in health, diet, medications, or supplements, Denies any signs and symptoms of bleeding or bruising or clotting. Bleeding, bruising, clotting discussed Nutritional guidance given - EAT A MIX OF FRUITS AND VEGETABLES Dose: 5MG X 3 DAYS/ 7.5MG X 4 DAYS F/U INR: 1 1/2 WKS BEFORE LEAVING FOR [place] Patient verbalizes understanding of instructions given Anti-Coag Initial Assessment Social Hx Patient Tobacco Use Status: Current everyday Tobacco user Tobacco use type: Cigarette alcohol intake: never Coding Level of Care Code Est Patient Level 1 Diagnoses Current use of anticoagulant therapy Z79.01 Results AMB INR Fingerstick AMB INR Fingerstick 2.8 Last Edit by Vonda Cam RN on 02/09/24 09:29 MANUAL ENTRY Assessment & Plan Assessment & Plan (1) Current use of anticoagulant therapy: Onset Date: ~2019 Comment: (due to Stroke with PFO and factor 5 leiden) 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
== END 2024-02-09 09:41 | disposition home or self-care (01) ==
LOC: HO.ACS 09:02
PROVIDERS: PCP Internal Medicine; Visit Provider Internal Medicine
DX: Z79.01 Long term (current) use of anticoagulants (principal)

== ENCOUNTER → 2024-02-09 09:02 | Outpatient (BNVA) | payer MEDICARE, MEDICAID, SELFPAY | PROVIDERS: PCP Internal Medicine; Visit Provider Internal Medicine | DX: Z86.73 Personal history of transient ischemic attack (TIA), and cerebral infarction without residual deficits (principal); Z79.01 Long term (current) use of anticoagulants; Z51.81 Encounter for therapeutic drug level monitoring | CPT/HCPCS: 85610; 99211 ==

== ENCOUNTER 2024-02-14 08:13 | Outpatient (AMB) | payer MEDICARE, MEDICAID, SELFPAY ==
--- NOTE | 2024-02-14 08:26 | A.OFFVIS_ITS ---
Vital Signs 02/14/24 08:27 Height 5 ft Weight 136 lb 10.986 oz BMI 26.7 BP 124/62 Blood Pressure Location Rt brachial Position Sitting Pulse 91 Pulse Source Pulse Oximeter Intake Visit Reasons: Follow up post cardiac cath [employer] Required: No Allergies vancomycin [VANCOMYCIN] Allergy (Intermediate, Verified 02/14/24 08:29) ITCHING/RASH metoclopramide [From Reglan] Adverse Reaction (Intermediate, Verified 02/14/24 08:29) Nausea and Vomiting Medication List - Last Reconciled 02/14/24 by GUILHERME AshrafC albuterol sulfate 90 mcg/actuation 2 puffs inhalation Q4H PRN albuterol sulfate 2.5 mg inhalation Q8H PRN amantadine HCl 100 mg PO DAILY amlodipine 10 mg PO DAILY atorvastatin 40 mg PO DAILY azithromycin 250 mg PO 3XW blood sugar diagnostic As directed cholecalciferol (vitamin D3) 25 mcg PO DAILY clopidogrel (Plavix) 75 mg PO DAILY diclofenac sodium 1% topical ezetimibe 10 mg PO DAILY 90 days food supplemt, lactose-reduced (Boost) PO hydrocortisone 2.5% appl topical magnesium oxide 400 mg PO DAILY metformin ER 1,000 mg PO BIDWM metoprolol succinate ER 50 mg PO DAILY mupirocin 2% topical BID nortriptyline 20 mg (2 x 10 mg) PO BEDTIME 90 days omeprazole 20 mg PO BID 90 days ondansetron HCl 8 mg PO Q12H PRN oxcarbazepine 300 mg PO BID oxycodone 5 mg PO BEDTIME PRN pramipexole mg PO umeclidinium 62.5 mcg/actuation (Incruse Ellipta) 1 inh inhalation DAILY warfarin 5 mg See Protocol PO DIRECTED HPI HPI Follow up post cardiac cath: Details: Diane is a 68-year-old female with past medical history of hypertension, hyperlipidemia, diabetes, sleep apnea with CPAP use, PFO, TIA, on anticoagulation, pacemaker, COPD who reported chest discomfort, had CTA of the coronary arteries showing CAD. She then underwent cardiac cath and now presents for follow up. Today she reports that she does get some random sharp pains in her anterior ch est. She has chronic issues with fatigue and shortness of breath and wears her CPAP consistently at night and when napping in the daytime. Since her cardiac stent she feels that the fatigue may be slightly improved. She says her breathing is unchanged. No heart palpitations, presyncope, syncope, falls. No PND, orthopnea. She has been noticing some bilateral mild lower leg edema. Right radial catheterization site is feeling good. Taking meds as directed. [facility] Medical History History of colon polyps (~2009) Type II diabetes mellitus, well controlled Personal history of nicotine dependence Factor 5 Leiden mutation, heterozygous Obstructive sleep apnea on CPAP (~2008) Osteopenia (~2018) Pacemaker (~2021) History of CVA (cerebrovascular accident) (~2019) Hyperlipidemia PFO (patent foramen ovale) (~2019) HTN (hypertension) COPD (chronic obstructive pulmonary disease) Current use of anticoagulant therapy (~2019) Surgical History Hx of cystoscopy Hx of blepharoplasty History of esophagogastroduodenoscopy (EGD) History of colonoscopy History of unilateral oophorectomy History of cholecystectomy (~2000) History of bladder surgery (~1999) History of pacemaker (~2021) Family History Mother Stroke Multiple sclerosis Diabetes Father CAD (coronary artery disease) Social History Alcohol intake: never Patient Tobacco Use Status: Current everyday Tobacco user Tobacco use type: Cigarette Cigarettes Per Day: 4 Years Smoked: 40 +/- e-Cigarette/Vaping Use: Currently Using service: No Current occupational status: retired Review of Systems Const All systems reviewed & are unremarkable except as noted in HPI and below Reports fatigue and Reports lethargy ENT Denies dizziness Card Denies chest pain, Denies chest pain at rest, Denies chest pain with activity, Denies rapid heart rate, Denies pedal edema, Denies edema, Denies leg edema, Denies lightheadedness, Denies palpitations, Denies dyspnea, Reports dyspnea on exertion and Denies orthopnea Resp Denies cough, Denies dyspnea and Reports dyspnea on exertion GI Denies hematochezia and Denies change in stool character Musc Denies abnormal gait, Denies limited range of motion, Denies muscle cramps, Denies muscle weakness, Denies numbness, Denies radiating pain into limb, Denies stiffness and Denies tingling Neuro Denies abnormal gait, Denies dizziness, Denies numbness and Denies tingling Endo Reports fatigue and Denies palpitations Physical Exam Vital Signs: Last Vital Signs Pulse 91 02/14/24 08:27 BP 124/62 02/14/24 08:27 BMI result Body Mass Index 26.7 Const General: cooperative, healthy appearing, comfortable and no acute distress Orientation/consciousness: patient oriented x3 Neck Neck: Yes normal visual inspection and Yes no JVD Resp Effort & Inspection: normal respiratory effort Auscultation: clear to auscultation bilaterally, no rales, no rhonchi and no wheezes Cardio Jugular venous distension: no JVD Rate: regular rate Rhythm: regular rhythm Heart sounds: S1 normal heart sound present, S2 normal heart sound present, no murmurs and no rubs Neuro General: patient oriented x3 Extrem General: Yes normal to inspection and No no pedal edema Psych Appearance: grossly normal Mental Status: mental status grossly normal Speech and movement: Normal speech and movement present Assessment & Plan Assessment & Plan (1) Atypical chest pain: Code(s): R07.89 - Other chest pain Category: Medical Plan: Patient has reports of atypical sounding chest discomfort. She does have multiple cardiac risk factors including hypertension, hyperlipidemia, diabetes, age. She did undergo a pharmacological nuclear stress test on 11/04/2023 which showed probable normal myocardial perfusion imaging, EF 55%. She continued to have symptoms along with reports of chronic fatigue and shortness of breath. She then had a CTA of the coronary arteries done on 12/09/23 showing mild left main stenosis, moderate proximal to mid LAD stenosis, distal LAD obscured by metal artifact from pacemaker wires, ramus with focal heavy calcification, proximal 50-70% stenosis, left circumflex small vessel, RCA proximal to mid obscured by metal artifact from pacemaker, remainder of vessel with no plaque or stenosis. She underwent a cardiac catheterization on 01/31/2024 showing proximal left circumflex 65% stenosis, mid RCA 90% stenosis, ESTRELLA was placed. She was on aspirin, Plavix along with her Coumadin until INR reached 2. She was then instructed to stop aspirin and continue on Plavix and Coumadin only. She follows with the anticoagulation Clinic. Since her procedure she notices slight improvement in her symptom of fatigue. She still has her atypical chest pain and shortness of breath with activity. She declines cardiac rehab. She tells me she is going to start walking routinely. Will continue on med management, Plavix uninterrupted for at least 1 year post stent. Continue Coumadin as well. Continue on atorvastatin and Zetia with ideal LDL goal less than 70. Last labs done 09/01/2023 showed LDL 73, prior to that LDL was 62. Typically is well controlled. Continue metoprolol XL 50 mg daily and amlodipine 10 mg daily. She does have some mild ankle edema which could be related to the high-dose amlodipine. If the symptom persist then may need to reduce amlodipine dose. Blood pressure is well controlled. Cardiology follow-up in 3 months. sooner if needed. (2) Cardiac pacemaker in situ: Code(s): Z95.0 - Presence of cardiac pacemaker Category: Medical Plan: Cardiac pacemaker in-situ for sinus pauses. She has minimal use of pacemaker in the atrium. No arrhythmias noted. Will continue follow remotely every 3 months. Office interrogation done last month. Next office interrogation due in November 2024 (3) History of CVA (cerebrovascular accident): Onset Date: ~2019 Comment: (Right embolic stroke while on ASA - acute cortical infarct right precentral gyrus - 09/19/2019) Code(s): Z86.73 - Personal history of transient ischemic attack (TIA), and cerebral infarction without residual deficits Category: Medical Plan: History of CVA with PFO. Has been evaluated by PFO closure team at [facility] and is been told to continue medical therapy. Currently on warfarin therapy given PFO and prior stroke considered to be embolic. Target INR between 2 and 3 being followed by Coumadin Clinic. No bleeding issues reported (4) Fatigue: Code(s): R53.83 - Other fatigue Category: Medical Plan: Chronic fatigue type symptoms. Needs to nap in the daytime. Does wear her CPAP at night and when napping. Slight decrease in fatigue symptoms reported post coronary stent placement. (5) S/P cardiac cath: Comment: 01/31/2024, left main normal, lad minimal irregularities, left circumflex proximal 65% stenosis, RCA mid 90 % stenosis, PCI with ESTRELLA. Code(s): Z98.890 - Other specified postprocedural states Category: Surgical Plan: Right radial catheterization site well healed. (6) CAD (coronary artery disease): Code(s): I25.10 - Atherosclerotic heart disease of ewiiaapaayp coronary artery without angina pectoris Category: Medical Plan: As above Plan Time spent on chart review, documentation, interview and assessment Coding Level of Care Code Est Pt Level 4 (00488) Diagnoses Atypical chest pain R07.89 Cardiac pacemaker in situ Z95.0 History of CVA (cerebrovascular accident) Z86.73 Fatigue R53.83 S/P cardiac cath Z98.890 CAD (coronary artery disease) I25.10 Time Spent (min) 28
[2024-02-14 08:27] VITALS: BP 124/62; PULSE 91; BMI 26.7
== END 2024-02-14 09:02 | disposition home or self-care (01) ==
PROVIDERS: PCP Internal Medicine; Visit Provider Nurse Practitioner Family
DX: R07.89 Other chest pain (principal); Z95.0 Presence of cardiac pacemaker; Z86.73 Personal history of transient ischemic attack (TIA), and cerebral infarction without residual deficits; R53.83 Other fatigue; Z98.890 Other specified postprocedural states; I25.10 Atherosclerotic heart disease of native coronary artery without angina pectoris
CPT/HCPCS: 99214

== ENCOUNTER → 2024-02-14 08:13 | Outpatient (BNVA) | payer MEDICARE, MEDICAID, SELFPAY | PROVIDERS: PCP Internal Medicine; Visit Provider Nurse Practitioner Family | DX: R07.89 Other chest pain (principal); R53.83 Other fatigue; I25.10 Atherosclerotic heart disease of native coronary artery without angina pectoris; Z86.73 Personal history of transient ischemic attack (TIA), and cerebral infarction without residual deficits; Z98.890 Other specified postprocedural states; Z95.0 Presence of cardiac pacemaker | CPT/HCPCS: 99212 ==

== ENCOUNTER 2024-02-21 07:40 | Outpatient (REF) | payer MEDICARE, MEDICAID, SELFPAY ==
[2024-02-21 08:42] LABS: C Reactive Protein 0.17 mg/dL (< or = 0.50); Magnesium 1.5 mg/dL (1.6-2.6)
[2024-02-21 09:07] LABS: Erythrocyte Sedimentation Rate 33 MM/HR (0-20)
== END 2024-02-21 07:41 | disposition home or self-care (01) ==
LOC: HO.LAB 07:40
PROVIDERS: PCP Internal Medicine; Visit Provider Internal Medicine
DX: I10 Essential (primary) hypertension (principal); E11.9 Type 2 diabetes mellitus without complications; M25.50 Pain in unspecified joint; Z86.73 Personal history of transient ischemic attack (TIA), and cerebral infarction without residual deficits; Z51.81 Encounter for therapeutic drug level monitoring; Z79.01 Long term (current) use of anticoagulants
CPT/HCPCS: 36415; 83735; 85610; 85652; 86140; 99211

== ENCOUNTER 2024-02-21 08:16 | Outpatient (AMB) | payer MEDICARE, MEDICAID, SELFPAY ==
--- NOTE | 2024-02-21 08:38 | MHC.OFFVISCO ---
Intake Intake Visit Reasons: Anticoagulation Allergies vancomycin [VANCOMYCIN] Allergy (Intermediate, Verified 02/21/24 08:33) ITCHING/RASH metoclopramide [From Reglan] Adverse Reaction (Intermediate, Verified 02/21/24 08:33) Nausea and Vomiting Medication List - Last Reconciled 02/21/24 by Anny Orta RN albuterol sulfate 90 mcg/actuation 2 puffs inhalation Q4H PRN albuterol sulfate 2.5 mg inhalation Q8H PRN amantadine HCl 100 mg PO DAILY amlodipine 10 mg PO DAILY atorvastatin 40 mg PO DAILY azithromycin 250 mg PO 3XW blood sugar diagnostic As directed cholecalciferol (vitamin D3) 25 mcg PO DAILY clopidogrel (Plavix) 75 mg PO DAILY diclofenac sodium 1% topical ezetimibe 10 mg PO DAILY 90 days food supplemt, lactose-reduced (Boost) PO hydrocortisone 2.5% appl topical magnesium oxide 400 mg PO DAILY metformin ER 1,000 mg PO BIDWM metoprolol succinate ER 50 mg PO DAILY mupirocin 2% topical BID nortriptyline 20 mg (2 x 10 mg) PO BEDTIME 90 days omeprazole 20 mg PO BID 90 days ondansetron HCl 8 mg PO Q12H PRN oxcarbazepine 300 mg PO BID oxycodone 5 mg PO BEDTIME PRN pramipexole mg PO umeclidinium 62.5 mcg/actuation (Incruse Ellipta) 1 inh inhalation DAILY warfarin 5 mg See Protocol PO DIRECTED Nursing Note INR: 3.0- in therapeutic range of 2-3 Medications and supplements reviewed- no changes No changes in health, diet, medications, or supplements, Denies any signs and symptoms of bleeding or bruising or clotting. Bleeding, bruising, clotting discussed Nutritional guidance given - eat greens to lower, no reds for 2 days Dose: 5mg x 3, 7.5mg x 4 F/U INR: 2 weeks Patient verbalizes understanding of instructions given pt had labs today, states cont with nausea- upcoming GI appt Anti-Coag Initial Assessment Social Hx Patient Tobacco Use Status: Current everyday Tobacco user Tobacco use type: Cigarette alcohol intake: never Coding Level of Care Code Est Patient Level 1 Diagnoses Current use of anticoagulant therapy Z79.01 Assessment & Plan Assessment & Plan (1) Current use of anticoagulant therapy: Onset Date: ~2019 Comment: (due to Stroke with PFO and factor 5 leiden) Code(s): Z79.01 - snf (current) use of anticoagulants Category: Medical
[2024-02-21 08:40] LABS: Prothrombin Time Whole Bld POC 35.9 sec (11.1-13.5)
== END 2024-02-21 08:45 | disposition home or self-care (01) ==
LOC: HO.ACS 08:16
PROVIDERS: PCP Internal Medicine; Visit Provider Internal Medicine
DX: Z79.01 Long term (current) use of anticoagulants (principal)

== ENCOUNTER → 2024-02-27 23:59 | Outpatient (BNV) | payer MEDICARE, MEDICAID, SELFPAY ==
--- NOTE | 2024-03-05 08:53 | A.OFFVIS_ITS ---
Intake Visit Reasons: Remote device check- [employer] Allergies vancomycin [VANCOMYCIN] Allergy (Intermediate, Verified 02/21/24 08:33) ITCHING/RASH metoclopramide [From Reglan] Adverse Reaction (Intermediate, Verified 02/21/24 08:33) Nausea and Vomiting PFSH Medical History History of colon polyps (~2009) Type II diabetes mellitus, well controlled Personal history of nicotine dependence Factor 5 Leiden mutation, heterozygous Obstructive sleep apnea on CPAP (~2008) Osteopenia (~2018) Pacemaker (~2021) History of CVA (cerebrovascular accident) (~2019) Hyperlipidemia PFO (patent foramen ovale) (~2019) HTN (hypertension) COPD (chronic obstructive pulmonary disease) Current use of anticoagulant therapy (~2019) Surgical History Hx of cystoscopy Hx of blepharoplasty History of esophagogastroduodenoscopy (EGD) History of colonoscopy History of unilateral oophorectomy History of cholecystectomy (~2000) History of bladder surgery (~1999) History of pacemaker (~2021) Family History Mother Stroke Multiple sclerosis Diabetes Father CAD (coronary artery disease) Social History Alcohol intake: never Patient Tobacco Use Status: Current everyday Tobacco user Tobacco use type: Cigarette Cigarettes Per Day: 4 Years Smoked: 40 +/- e-Cigarette/Vaping Use: Currently Using service: No Current occupational status: retired Office Procedures Cardiac Device Check Cardiac Device Check Details: Remote pacemaker report generated 02/27/2024. Pacemaker function is adequate [id number] Cardiac Device Interrogation, pacemaker Procedure code (CPT) selection complete Assessment & Plan Assessment & Plan (1) Cardiac pacemaker in situ: Code(s): Z95.0 - Presence of cardiac pacemaker Category: Medical Plan: See above Coding Level of Care Code Procedure Only Diagnoses Cardiac pacemaker in situ Z95.0 CPT Codes Cardiac Device Check - Cardiac Device 12: [id number] Cardiac Device Interrogation, pacemaker ([id number])
== END ==
PROVIDERS: PCP Internal Medicine; Visit Provider Internal Medicine Cardiovascular Disease
DX: Z45.018 Encounter for adjustment and management of other part of cardiac pacemaker (principal)
CPT/HCPCS: 93294

== ENCOUNTER 2024-03-06 08:53 | Outpatient (AMB) | payer MEDICARE, MEDICAID, SELFPAY ==
[2024-03-06 09:15] LABS: Prothrombin Time Whole Bld POC 34.4 sec (11.1-13.5); ~PT, ~INR - Anti Coag Clinic 2.9 (0.9-1.1)
--- NOTE | 2024-03-06 09:24 | MHC.OFFVISCO ---
Intake Intake Visit Reasons: Anticoagulation Allergies vancomycin [VANCOMYCIN] Allergy (Intermediate, Verified 03/06/24 09:09) ITCHING/RASH metoclopramide [From Reglan] Adverse Reaction (Intermediate, Verified 03/06/24 09:09) Nausea and Vomiting Medication List - Last Reconciled 03/06/24 by Catherine Bales, RN albuterol sulfate 90 mcg/actuation 2 puffs inhalation Q4H PRN albuterol sulfate 2.5 mg inhalation Q8H PRN amantadine HCl 100 mg PO DAILY amlodipine 10 mg PO DAILY atorvastatin 40 mg PO DAILY azithromycin 250 mg PO 3XW blood sugar diagnostic As directed cholecalciferol (vitamin D3) 25 mcg PO DAILY clopidogrel (Plavix) 75 mg PO DAILY diclofenac sodium 1% topical ezetimibe 10 mg PO DAILY 90 days food supplemt, lactose-reduced (Boost) PO hydrocortisone 2.5% appl topical magnesium oxide 400 mg PO DAILY metformin ER 1,000 mg PO BIDWM metoprolol succinate ER 50 mg PO DAILY mupirocin 2% topical BID nortriptyline 20 mg (2 x 10 mg) PO BEDTIME 90 days omeprazole 20 mg PO BID 90 days ondansetron HCl 8 mg PO Q12H PRN oxcarbazepine 300 mg PO BID oxycodone 5 mg PO BEDTIME PRN pramipexole mg PO sucralfate 1 g PO BID umeclidinium 62.5 mcg/actuation (Incruse Ellipta) 1 inh inhalation DAILY warfarin 5 mg See Protocol PO DIRECTED Nursing Note INR: 2.9 in therapeutic range of 2-3 Medications and supplements reviewed, pt started on sucrafate 02/21 but has only taken 3 doses. She is trying to work the med into her schedule as she can't take it with her other meds. Spoke to her about this and helped her work out a schedule to incorporate the sucrafate into her med regime No changes in health, diet, or supplements, Denies any signs and symptoms of bleeding or bruising or clotting. Bleeding, bruising, clotting discussed Nutritional guidance given Dose: usual dose thise week which is 7.5mg X 4 days and 5 mg X 3 days but dose increased next week (starting 5 days from now) to 7.5mg X 5 days and 5mg X 2 days. Increase due to sucrafate which has a delayed effect to lower the INR F/U INR: 03/16/24 Patient verbalizes understanding of instructions given Anti-Coag Initial Assessment Social Hx Patient Tobacco Use Status: Current everyday Tobacco user Tobacco use type: Cigarette alcohol intake: never Coding Level of Care Code Est Patient Level 1 Diagnoses Current use of anticoagulant therapy Z79.01 Results AMB INR Fingerstick AMB INR Fingerstick 2.9 Last Edit by Catherine Bales RN on 03/06/24 09:16 interface delay Assessment & Plan Assessment & Plan (1) Current use of anticoagulant therapy: Onset Date: ~2019 Comment: (due to Stroke with PFO and factor 5 leiden) Code(s): Z79.01 - 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
== END 2024-03-06 09:30 | disposition home or self-care (01) ==
LOC: HO.ACS 08:53
PROVIDERS: PCP Internal Medicine; Visit Provider Internal Medicine
DX: Z79.01 Long term (current) use of anticoagulants (principal)

== ENCOUNTER → 2024-03-06 08:53 | Outpatient (BNVA) | payer MEDICARE, MEDICAID, SELFPAY | PROVIDERS: PCP Internal Medicine; Visit Provider Internal Medicine | DX: Z86.73 Personal history of transient ischemic attack (TIA), and cerebral infarction without residual deficits (principal); Z79.01 Long term (current) use of anticoagulants; Z51.81 Encounter for therapeutic drug level monitoring | CPT/HCPCS: 85610; 99211 ==

== ENCOUNTER 2024-03-07 10:18 | Outpatient (AMB) | payer MEDICARE, MEDICAID, SELFPAY ==
--- NOTE | 2024-03-07 10:22 | MHC.OFFVIS ---
Vital Signs 03/07/24 10:23 Height 5 ft Weight 136 lb 10.986 oz BMI 26.7 BP 108/47 L Blood Pressure Location Lt brachial Position Sitting Pulse 96 Intake Visit Reasons: 8 week f/u Intake Note: Diane presents in the office as a follow up. CC: She states that she has been having problems again with her stomach and Maxi sent her the carafate while Dr Mcadams was out. Talent Acquisition Specialist Required: No Allergies vancomycin [VANCOMYCIN] Allergy (Intermediate, Verified 03/07/24 10:24) ITCHING/RASH metoclopramide [From Reglan] Adverse Reaction (Intermediate, Verified 03/07/24 10:24) Nausea and Vomiting HPI Comments Details: This is a 66-year-old female past medical history of COPD, factor 5 laden heterozygosity, PFO (not a candidate for closure), history of CVA, on warfarin, personal history of polyps, who presents to the office for post procedure follow up. Initial visit 05/03/22: Patient states that for the past 1 year, she has had tremendous fatigue, to the point where there are some days when she does not even have the energy to get out of bed. For the past 2-3 months, she has also been noticing increased bloating, early satiety, decreased appetite and nausea. Reports increased nausea and burping. She has lost around 15 lb during this time. This is also associated with loose watery diarrhea with urgency. Triggered by food intake. Nighttime symptoms present. At an average, has 5-6 liquidy bowel movements which are nonbloody. She thinks she may have had 1-2 black bowel movements last month. Most recent endoscopy was a colonoscopy by Dr. Casey 5-6 years ago per her report. Was told she had polyps and will be due for repeat in 5 years. Of note, previous endoscopy notes by Dr. Echavarria also mentions family history, but patient denies any family history of colon cancer in first-degree relatives. Sister has colon polyps. Of note, she also brings up chronic complaint of dysphagia. She has had this for many years. Describes it as a sensation of food getting stuck in middle of her chest causing immense pain and nausea. Previous workup as per report has included barium study, upper endoscopy, motility study. All this was done more than 5 years ago and [facility]. She was told she possibly has esophageal spasm , but is not on any treatment. Patient was recently seen in the emergency room in January for fevers and left lower quadrant pain. CT scan was done that was read with stomach wall thickening, panc tail calcifications and L sided colitis. EGD/Colonoscopy 05/2022: Grade A esophagitis Esophageal spasms Empiric Savary dilation to 20 mm? Gastritis (biopsy) Normal duodenum Normal colon and terminal ileum mucosa Total of 4 polyps removed from ascending, transverse colon and rectum. Diverticulosis External and internal hemorrhoids Path: A. Stomach, random, biopsy:? Oxyntic mucosa within normal limits; no Helicobacter organisms seen. B.? Colon, transverse, polypectomies (2):? Tubular adenomata; negative for high-grade dysplasia or carcinoma. C.? Colon, ascending, polypectomy:? Tubular adenoma; negative for high-grade dysplasia or carcinoma. D.? Rectum, polypectomy:? Hyperplastic mucosal polyp. 06/18/22: While the nausea, early satiety and weight loss seems to have stabilized after starting omeprazole, she continues to report intermittent sensation food getting stuck in her mid chest. Yesterday morning, also had severe episode of heartburn with regurgitation. Had a barium swallow yesterday, which has not been read yet. Reviewed medication use, has been taking omeprazole with meal, not before. Also continues to smoke. Records from [facility] re esophageal motility pending. 09/01/22: Motility study reviewed. Normal motility. Patient continues to complain of significant nausea and pain in her chest that radiates to her back. Associated with nausea but no vomiting or regurgitation. Nausea improves with food intake. Has had some more weight loss, although not to the same degree as before. This was also discussed with the patient over the phone last week, and a CT angio abdomen has already been ordered to rule out chronic mesenteric ischemia, she does have significant peripheral vascular disease (sees Dr. Venegas at [facility]). Labs reviewed, was noted to have elevated ESR January 2022. Reports has an appointment with the quality systems manager. Patient is quite frustrated that she has daily fatigue and very low energy to do anything. Continues to have sensation of difficulty swallowing and sensation of food getting stuck along with nausea without any unifying diagnosis. Also reports joint stiffness all over her body specially in the morning. Sometimes, even getting up the stairs is a huge task. 05/23/23: Reports had not followed up as had been feeling quite well. Abd discomfort and nausea had resolved. She had also gained her weight back. However the past few weeks feels that she now has a gnawing pain in the epigastric region assoc with nausea. Notices discomfort is worse when she is hungry. A week ago also noticed a different odor to her stool for a couple of days, but did not remember to actually look for the color of the stool. Continues to smoke - almost 4-5 cigs a day but trying to quit. No NSAIDs. 10/04/23: Normal esophagus (dilation) Normal stomach (biopsy) Normal duodenum Diagnosis Stomach, biopsy: Antral-type and oxyntic mucosa with mild chronic inactive inflammation; no Helicobacter organisms seen. 10/19/23: Reports improvement in swallowing since empiric dilation. Nausea better as well. Cont to report postprandial discomfort and bloating with feeling of fullness. Patient also recently seen by Cardiology for symptoms of lightheadedness and atypical chest pain. Scheduled for a perfusion scan. 03/07/24: Here for follow up. In the meantime, had cardiac cath with revascularization of RCA (Dr Lanza, [facility]). Also reports experienced gnawing abd pain with nausea for which she had called the office. Carafate rxed by Dr German. Carafate helped a bit. Also reports loose BM immediately after taking a metformin dose. Main issue is remains fatigue, stays in bed most of the day. PRev have discussed rheum evaluation with pt yaron for ? PMR based on her sx distribution and elevated ESR but has not been seen recently. Pt also with osteopenia on DEXA. [facility] Medical History (Updated 03/07/24 @ 11:40 by Shannon Mcadams MD) History of colon polyps (~2009) Type II diabetes mellitus, well controlled Personal history of nicotine dependence Factor 5 Leiden mutation, heterozygous Obstructive sleep apnea on CPAP (~2008) Osteopenia (~2018) Pacemaker (~2021) History of CVA (cerebrovascular accident) (~2019) Hyperlipidemia PFO (patent foramen ovale) (~2019) HTN (hypertension) COPD (chronic obstructive pulmonary disease) Current use of anticoagulant therapy (~2019) Surgical History Hx of cystoscopy Hx of blepharoplasty History of esophagogastroduodenoscopy (EGD) History of colonoscopy History of unilateral oophorectomy History of cholecystectomy (~2000) History of bladder surgery (~1999) History of pacemaker (~2021) Family History Mother Stroke Multiple sclerosis Diabetes Father CAD (coronary artery disease) Social History Alcohol intake: never Patient Tobacco Use Status: Current everyday Tobacco user Tobacco use type: Cigarette Cigarettes Per Day: 4 Years Smoked: 40 +/- e-Cigarette/Vaping Use: Currently Using service: No Current occupational status: retired Review of Systems Const All systems reviewed & are unremarkable except as noted in HPI and below Physical Exam Vital Signs: Last Vital Signs Pulse 96 03/07/24 10:23 BP 108/47 L 03/07/24 10:23 BMI result Body Mass Index 26.7 No apparent distress Nonicteric Abdomen soft, nondistended Alert and oriented x3, sgnificant nonpitting edema in LE bilaterally Assessment & Plan Assessment & Plan (1) Fatigue: Code(s): R53.83 - Other fatigue Category: Medical (2) Osteopenia: Onset Date: ~2018 Code(s): M85.80 - Other specified disorders of bone density and structure, unspecified site Category: Medical (3) History of colon polyps: Onset Date: ~2009 Comment: x3 TA in 2021 Code(s): Z86.010 - Personal history of colonic polyps Category: Medical (4) GERD with esophagitis: Code(s): K21.00 - Gastro-esophageal reflux disease with esophagitis, without bleeding Category: Medical (5) Postprandial distress syndrome: Code(s): K30 - Functional dyspepsia Category: Medical (6) Lower extremity edema: Code(s): R60.0 - Localized edema Category: Medical Plan As outlined above, most of the issues today are non-GI related. - For functional dyspepsia, she self discontinued nortriptyline due to headaches. Will avoid desipramine as pt already with borderline low systolics and can risk orthostatic hypotenstion with it. Pt declines mirtazipine at this time as already gaining too much weight due to being sedentary and fears that with increased appetite from mirtazipine may gain even more. - Has known GERD but due to underlying osteopenia, will switch PPI to famotidine 20 once nightly. - For her fatigue, low energy, neck, shoulder and hip pain with elevated ESR strongly suspect PMR and will refer to Rheum for further eval. Pt can also review osteopenia mgmt with them. - In terms of LE edema, has visit coming up with cardiology per her report. Will send them a heads up msg as well. In the meantime, advise pt to keep them elevated while sitting. DARYA epstein. - Pt with hx of polyps 2021. Next colo due in 2024. Follow up in 4 months Orders: Referrals Rheumatology Referral M35.3 - Polymyalgia rheumatica, M85.80 - Other specified disorders of bone density and structure, unspecified site, R53.83 - Other fatigue Medications: New famotidine 20 mg PO BEDTIME 90 tabs 1RF Discontinued nortriptyline Take 10mg at night for 2 weeks and then increase to 20mg at night Discontinued Reason: Doctor's Order 20 mg (2 x 10 mg) PO BEDTIME 90 days 180 caps 0RF K30 - Functional dyspepsia omeprazole Discontinued Reason: Doctor's Order 20 mg PO BID 90 days 180 caps 1RF Coding Level of Care Code Est Pt Level 5 (95492) Diagnoses Fatigue R53.83 Osteopenia M85.80 History of colon polyps Z86.010 GERD with esophagitis K21.00 Postprandial distress syndrome K30 Lower extremity edema R60.0
[2024-03-07 10:23] VITALS: BP 108/47; PULSE 96; BMI 26.7
== END 2024-03-07 11:02 | disposition home or self-care (01) ==
PROVIDERS: PCP Internal Medicine; Visit Provider Internal Medicine
DX: R53.83 Other fatigue (principal); M85.80 Other specified disorders of bone density and structure, unspecified site; Z86.010 Personal history of colon polyps; K21.00 Gastro-esophageal reflux disease with esophagitis, without bleeding; K30 Functional dyspepsia; R60.0 Localized edema
CPT/HCPCS: 99214

== ENCOUNTER → 2024-03-07 10:18 | Outpatient (BNVA) | payer MEDICARE, MEDICAID, SELFPAY | PROVIDERS: PCP Internal Medicine; Visit Provider Internal Medicine | DX: R53.83 Other fatigue (principal); M85.80 Other specified disorders of bone density and structure, unspecified site; K21.00 Gastro-esophageal reflux disease with esophagitis, without bleeding; K30 Functional dyspepsia; R60.0 Localized edema; Z86.010 Personal history of colon polyps | CPT/HCPCS: 99212 ==

== ENCOUNTER 2024-03-12 08:53 | Outpatient (AMB) | payer MEDICARE, MEDICAID, SELFPAY ==
--- NOTE | 2024-03-12 09:34 | MHC.OFFVISCO ---
Intake Intake Visit Reasons: Anticoagulation Allergies vancomycin [VANCOMYCIN] Allergy (Intermediate, Verified 03/12/24 09:26) ITCHING/RASH metoclopramide [From Reglan] Adverse Reaction (Intermediate, Verified 03/12/24 09:26) Nausea and Vomiting Medication List - Last Reconciled 03/12/24 by Anny Orta RN albuterol sulfate 90 mcg/actuation 2 puffs inhalation Q4H PRN albuterol sulfate 2.5 mg inhalation Q8H PRN amantadine HCl 100 mg PO DAILY amlodipine 5 mg PO DAILY atorvastatin 40 mg PO DAILY blood sugar diagnostic As directed cholecalciferol (vitamin D3) 25 mcg PO DAILY clopidogrel (Plavix) 75 mg PO DAILY diclofenac sodium 1% topical ezetimibe 10 mg PO DAILY 90 days famotidine 20 mg PO BEDTIME food supplemt, lactose-reduced (Boost) PO hydrocortisone 2.5% appl topical magnesium oxide 400 mg PO DAILY metformin ER 1,000 mg PO BIDWM metoprolol succinate ER 50 mg PO DAILY mupirocin 2% topical BID ondansetron HCl 8 mg PO Q12H PRN oxcarbazepine 300 mg PO BID oxycodone 5 mg PO BEDTIME PRN pramipexole mg PO sucralfate 1 g PO BID umeclidinium 62.5 mcg/actuation (Incruse Ellipta) 1 inh inhalation DAILY warfarin 5 mg See Protocol PO DIRECTED Nursing Note INR 3.2-? out of therapeutic range of 2-3 Medications and supplements reviewed Patient status: pt going on vacation tomm Medications or supplements: famotidine may raise inr per micromedex- pt has not started and is hesitant to start. sulcralafate- can lower inr per micromedex with delayed onset Diet: same, cont with GI c/o Denies any signs and symptoms of bleeding or clotting or unusual bruising Bleeding, bruising, clotting discussed Nutritional guidance given: eat dark greens to lower Dose: 5mg x 3, 7.5mg x 4 F/U INR Date : 1 week?? Patient verbalizing understanding of instructions given. Anti-Coag Initial Assessment Social Hx Patient Tobacco Use Status: Current everyday Tobacco user Tobacco use type: Cigarette alcohol intake: never Coding Level of Care Code Est Patient Level 1 Diagnoses Current use of anticoagulant therapy Z79.01 Assessment & Plan Assessment & Plan (1) Current use of anticoagulant therapy: Onset Date: ~2019 Comment: (due to Stroke with PFO and factor 5 leiden) Code(s): Z79.01 - assisted (current) use of anticoagulants Category: Medical
[2024-03-12 09:35] LABS: Prothrombin Time Whole Bld POC 38.4 sec (11.1-13.5); ~PT, ~INR - Anti Coag Clinic 3.2 (0.9-1.1)
== END 2024-03-12 09:42 | disposition home or self-care (01) ==
LOC: HO.ACS 08:53
PROVIDERS: PCP Internal Medicine; Visit Provider Internal Medicine
DX: Z79.01 Long term (current) use of anticoagulants (principal)

== ENCOUNTER → 2024-03-12 08:53 | Outpatient (BNVA) | payer MEDICARE, MEDICAID, SELFPAY | PROVIDERS: PCP Internal Medicine; Visit Provider Internal Medicine | DX: Z86.73 Personal history of transient ischemic attack (TIA), and cerebral infarction without residual deficits (principal); Z79.01 Long term (current) use of anticoagulants; Z51.81 Encounter for therapeutic drug level monitoring | CPT/HCPCS: 85610; 99211 ==

== ENCOUNTER 2024-03-20 09:34 | Outpatient (AMB) | payer MEDICARE, MEDICAID, SELFPAY ==
--- NOTE | 2024-03-20 09:53 | MHC.OFFVISCO ---
Intake Intake Visit Reasons: Anticoagulation Allergies vancomycin [VANCOMYCIN] Allergy (Intermediate, Verified 03/20/24 09:42) ITCHING/RASH metoclopramide [From Reglan] Adverse Reaction (Intermediate, Verified 03/20/24 09:42) Nausea and Vomiting Medication List - Last Reconciled 03/20/24 by Anny Orta RN albuterol sulfate 90 mcg/actuation 2 puffs inhalation Q4H PRN albuterol sulfate 2.5 mg inhalation Q8H PRN amantadine HCl 100 mg PO DAILY amlodipine 5 mg PO DAILY atorvastatin 40 mg PO DAILY azithromycin 250 mg PO 3XW blood sugar diagnostic As directed cholecalciferol (vitamin D3) 25 mcg PO DAILY clopidogrel (Plavix) 75 mg PO DAILY diclofenac sodium 1% topical ezetimibe 10 mg PO DAILY 90 days famotidine 20 mg PO BEDTIME food supplemt, lactose-reduced (Boost) PO hydrocortisone 2.5% appl topical magnesium oxide 400 mg PO DAILY metformin ER 1,000 mg PO BIDWM metoprolol succinate ER 50 mg PO DAILY mupirocin 2% topical BID ondansetron HCl 8 mg PO Q12H PRN oxcarbazepine 300 mg PO BID oxycodone 5 mg PO BEDTIME PRN pramipexole mg PO sucralfate 1 g PO BID umeclidinium 62.5 mcg/actuation (Incruse Ellipta) 1 inh inhalation DAILY warfarin 5 mg See Protocol PO DIRECTED Nursing Note INR: 2.5- in therapeutic range of 2-3 Medications and supplements reviewed- famotidine- can raise inr per micromedex recent lowering of sucralafate. pt states amlodipine recent lowering from 10mg to 5mg No changes in health, diet, medications, or supplements, Denies any signs and symptoms of bleeding or bruising or clotting. Bleeding, bruising, clotting discussed Nutritional guidance given Dose: 5mg x 3, 7.5mg x 4 F/U INR: 1 week Patient verbalizes understanding of instructions given Anti-Coag Initial Assessment Social Hx Patient Tobacco Use Status: Current everyday Tobacco user Tobacco use type: Cigarette alcohol intake: never Coding Level of Care Code Est Patient Level 1 Diagnoses Current use of anticoagulant therapy Z79.01 Results AMB INR Fingerstick AMB INR Fingerstick 2.5 Last Edit by Anny Orta RN on 09/03/24 09:55 interface delay Assessment & Plan Assessment & Plan (1) Current use of anticoagulant therapy: Onset Date: ~2019 Comment: (due to Stroke with PFO and factor 5 leiden) 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
[2024-03-20 09:55] LABS: Prothrombin Time Whole Bld POC 29.9 sec (11.1-13.5); ~PT, ~INR - Anti Coag Clinic 2.5 (0.9-1.1)
== END 2024-03-20 10:20 | disposition home or self-care (01) ==
LOC: HO.ACS 09:34
PROVIDERS: PCP Internal Medicine; Visit Provider Internal Medicine
DX: Z79.01 Long term (current) use of anticoagulants (principal)

== ENCOUNTER → 2024-03-20 09:34 | Outpatient (BNVA) | payer MEDICARE, MEDICAID, SELFPAY | PROVIDERS: PCP Internal Medicine; Visit Provider Internal Medicine | DX: Z86.73 Personal history of transient ischemic attack (TIA), and cerebral infarction without residual deficits (principal); Z79.01 Long term (current) use of anticoagulants; Z51.81 Encounter for therapeutic drug level monitoring | CPT/HCPCS: 85610; 99211 ==

== ENCOUNTER 2024-03-29 08:56 | Outpatient (AMB) | payer MEDICARE, MEDICAID, SELFPAY ==
--- NOTE | 2024-03-29 09:14 | MHC.OFFVISCO ---
Intake Intake Visit Reasons: Anticoagulation Allergies vancomycin [VANCOMYCIN] Allergy (Intermediate, Verified 03/29/24 08:57) ITCHING/RASH metoclopramide [From Reglan] Adverse Reaction (Intermediate, Verified 03/29/24 08:57) Nausea and Vomiting Medication List - Last Reconciled 03/29/24 by Catherine Bales, RN albuterol sulfate 90 mcg/actuation 2 puffs inhalation Q4H PRN albuterol sulfate 2.5 mg inhalation Q8H PRN amantadine HCl 100 mg PO DAILY amlodipine 5 mg PO DAILY atorvastatin 40 mg PO DAILY azithromycin 250 mg PO 3XW blood sugar diagnostic As directed cholecalciferol (vitamin D3) 25 mcg PO DAILY clopidogrel (Plavix) 75 mg PO DAILY diclofenac sodium 1% topical dulaglutide (Trulicity) 0.75 mg subcut QWEEK ezetimibe 10 mg PO DAILY 90 days famotidine 20 mg PO BEDTIME food supplemt, lactose-reduced (Boost) PO hydrocortisone 2.5% appl topical magnesium oxide 400 mg PO DAILY metformin ER 500mg (2 tabs) orally daily; metoprolol succinate ER 50 mg PO DAILY mupirocin 2% topical BID ondansetron HCl 8 mg PO Q12H PRN oxcarbazepine 300 mg PO BID oxycodone 5 mg PO BEDTIME PRN pramipexole mg PO sucralfate 1 g PO BID umeclidinium 62.5 mcg/actuation (Incruse Ellipta) 1 inh inhalation DAILY warfarin 5 mg See Protocol PO DIRECTED Nursing Note INR: 2.6 in therapeutic range of 2-3 Medications and supplements reviewed: Pt missed Tuesday's dose of 7.5mg so took 10mg on Tuesday (usual dose 5mg) No changes in health, diet, medications, or supplements, Denies any signs and symptoms of bleeding or bruising or clotting. Bleeding, bruising, clotting discussed Nutritional guidance given Dose: resume usual dose of 7.5mg X 4 days and 5mg X 3 days F/U INR: 2 weeks Patient verbalizes understanding of instructions given Anti-Coag Initial Assessment Social Hx Patient Tobacco Use Status: Current everyday Tobacco user Tobacco use type: Cigarette alcohol intake: never Coding Level of Care Code Est Patient Level 1 Diagnoses Current use of anticoagulant therapy Z79.01 Results AMB INR Fingerstick AMB INR Fingerstick 2.6 Last Edit by Catherine Bales RN on 03/29/24 09:08 interface delay Assessment & Plan Assessment & Plan (1) Current use of anticoagulant therapy: Onset Date: ~2019 Comment: (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
[2024-03-29 09:16] LABS: Prothrombin Time Whole Bld POC 30.8 sec (11.1-13.5); ~PT, ~INR - Anti Coag Clinic 2.6 (0.9-1.1)
== END 2024-03-29 09:17 | disposition home or self-care (01) ==
LOC: HO.ACS 08:56
PROVIDERS: PCP Internal Medicine; Visit Provider Internal Medicine
DX: Z79.01 Long term (current) use of anticoagulants (principal)

== ENCOUNTER → 2024-03-29 08:56 | Outpatient (BNVA) | payer MEDICARE, MEDICAID, SELFPAY | PROVIDERS: PCP Internal Medicine; Visit Provider Internal Medicine | DX: Z86.73 Personal history of transient ischemic attack (TIA), and cerebral infarction without residual deficits (principal); Z79.01 Long term (current) use of anticoagulants; Z51.81 Encounter for therapeutic drug level monitoring | CPT/HCPCS: 85610; 99211 ==

== ENCOUNTER 2024-04-06 11:02 | Outpatient (REF) | payer MEDICARE, MEDICAID, SELFPAY ==
--- NOTE | ~2024-04-06 | XR_ITS ---
EXAMINATION: XR LUMBOSACRAL SPINE CLINICAL INFORMATION: Acute low back pain COMPARISON: MR lumbar spine 08/04/2023, x-ray lumbar spine 06/20/2023 TECHNIQUE: Three views of the lumbosacral spine. FINDINGS: Degenerative changes are present throughout the lumbar spine with scoliosis convex to the right. Vascular calcifications are seen. No fractures or subluxations. No bony destructive lesions. When comparison is made with a 06/20/2023 study, there is been no significant interval change in appearances. XR/XR lumbar spine 2-3V IMPRESSION: Degenerative changes in the lumbar spine with scoliosis. No acute finding. Electronically signed by: Norberto Perdue MD 04/16/2024 11:04 AM EDT
== END 2024-04-06 11:03 | disposition home or self-care (01) ==
LOC: HO.XRAY 11:02
PROVIDERS: PCP Internal Medicine; Visit Provider Physician Assistant Surgical
DX: M54.50 Low back pain, unspecified (principal)
CPT/HCPCS: 72100

== ENCOUNTER 2024-04-12 08:45 | Outpatient (AMB) | payer MEDICARE, MEDICAID, SELFPAY ==
--- NOTE | 2024-04-12 08:57 | MHC.OFFVISCO ---
Intake Intake Visit Reasons: Anticoagulation Allergies vancomycin [VANCOMYCIN] Allergy (Intermediate, Verified 04/12/24 08:57) ITCHING/RASH metoclopramide [From Reglan] Adverse Reaction (Intermediate, Verified 04/12/24 08:57) Nausea and Vomiting Medication List - Last Reconciled 04/12/24 by Catherine Bales, RN albuterol sulfate 90 mcg/actuation 2 puffs inhalation Q4H PRN albuterol sulfate 2.5 mg inhalation Q8H PRN amantadine HCl 100 mg PO DAILY amlodipine 5 mg PO DAILY atorvastatin 40 mg PO DAILY azithromycin 250 mg PO 3XW blood sugar diagnostic As directed carisoprodol (Soma) 350 mg PO TID cholecalciferol (vitamin D3) 25 mcg PO DAILY clopidogrel (Plavix) 75 mg PO DAILY diclofenac sodium 1% topical dulaglutide (Trulicity) 0.75 mg subcut QWEEK ezetimibe 10 mg PO DAILY 90 days famotidine 20 mg PO BEDTIME food supplemt, lactose-reduced (Boost) PO hydrocortisone 2.5% appl topical magnesium oxide 400 mg PO DAILY metformin ER 500mg (2 tabs) orally daily; metoprolol succinate ER 50 mg PO DAILY mupirocin 2% topical BID ondansetron HCl 8 mg PO Q12H PRN oxcarbazepine 300 mg PO BID oxycodone 5 mg PO BEDTIME PRN pramipexole mg PO sucralfate 1 g PO BID umeclidinium 62.5 mcg/actuation (Incruse Ellipta) 1 inh inhalation DAILY warfarin 5 mg See Protocol PO DIRECTED Nursing Note INR: 3.2 out of therapeutic range of 2-3 Medications and supplements reviewed No changes in health, diet, medications, or supplements, Denies any signs and symptoms of bleeding or bruising or clotting. 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
[2024-04-12 09:05] LABS: ~PT, ~INR - Anti Coag Clinic 3.2 (0.9-1.1)
== END 2024-04-12 09:16 | disposition home or self-care (01) ==
LOC: HO.ACS 08:45
PROVIDERS: PCP Internal Medicine; Visit Provider Internal Medicine
DX: Z79.01 Long term (current) use of anticoagulants (principal)

== ENCOUNTER → 2024-04-12 08:45 | Outpatient (BNVA) | payer MEDICARE, MEDICAID, SELFPAY | PROVIDERS: PCP Internal Medicine; Visit Provider Internal Medicine | DX: Z86.73 Personal history of transient ischemic attack (TIA), and cerebral infarction without residual deficits (principal); Z79.01 Long term (current) use of anticoagulants; Z51.81 Encounter for therapeutic drug level monitoring | CPT/HCPCS: 85610; 99211 ==

== ENCOUNTER 2024-04-26 09:02 | Outpatient (AMB) | payer MEDICARE, MEDICAID, SELFPAY ==
[2024-04-26 09:21] LABS: Prothrombin Time Whole Bld POC 33.5 sec (11.1-13.5); ~PT, ~INR - Anti Coag Clinic 2.8 (0.9-1.1)
--- NOTE | 2024-04-26 09:25 | MHC.OFFVISCO ---
Intake Intake Visit Reasons: Anticoagulation Allergies vancomycin [VANCOMYCIN] Allergy (Intermediate, Verified 04/26/24 09:16) ITCHING/RASH metoclopramide [From Reglan] Adverse Reaction (Intermediate, Verified 04/26/24 09:16) Nausea and Vomiting Medication List - Last Reconciled 04/26/24 by Catherine Bales, RN albuterol sulfate 90 mcg/actuation 2 puffs inhalation Q4H PRN albuterol sulfate 2.5 mg inhalation Q8H PRN amantadine HCl 100 mg PO DAILY amlodipine 5 mg PO DAILY atorvastatin 40 mg PO DAILY azithromycin 250 mg PO 3XW blood sugar diagnostic As directed carisoprodol (Soma) 350 mg PO TID cholecalciferol (vitamin D3) 25 mcg PO DAILY clopidogrel (Plavix) 75 mg PO DAILY diclofenac sodium 1% topical dulaglutide (Trulicity) 0.75 mg subcut QWEEK ezetimibe 10 mg PO DAILY 90 days famotidine 20 mg PO BEDTIME food supplemt, lactose-reduced (Boost) PO hydrocortisone 2.5% appl topical magnesium oxide 400 mg PO DAILY metformin ER 500mg (2 tabs) orally daily; metoprolol succinate ER 50 mg PO DAILY mupirocin 2% topical BID ondansetron HCl 8 mg PO Q12H PRN oxcarbazepine 300 mg PO BID oxycodone 5 mg PO BEDTIME PRN pramipexole mg PO sucralfate 1 g PO BID umeclidinium 62.5 mcg/actuation (Incruse Ellipta) 1 inh inhalation DAILY warfarin 5 mg See Protocol PO DIRECTED Nursing Note INR: 2.8 in therapeutic range OF 2-3 Medications and supplements reviewed No changes in health, diet, medications, or supplements, Denies any signs and symptoms of bleeding or bruising or clotting. Bleeding, bruising, clotting discussed Nutritional guidance given Dose: CONTINUE SAME DOSE OF 7.5MG x 4 DAYS AND 5MG x 3 DAYS F/U INR: 2 WEEKS Patient verbalizes understanding of instructions given Anti-Coag Initial Assessment Social Hx Patient Tobacco Use Status: Current everyday Tobacco user Tobacco use type: Cigarette alcohol intake: never Coding Level of Care Code Est Patient Level 1 Diagnoses Current use of anticoagulant therapy Z79.01 Assessment & Plan Assessment & Plan (1) Current use of anticoagulant therapy: Onset Date: ~2019 Comment: (due to Stroke with PFO and factor 5 leiden) Code(s): Z79.01 - prison (current) use of anticoagulants Category: Medical
== END 2024-04-26 09:29 | disposition home or self-care (01) ==
LOC: HO.ACS 09:02
PROVIDERS: PCP Internal Medicine; Visit Provider Internal Medicine
DX: Z79.01 Long term (current) use of anticoagulants (principal)

== ENCOUNTER → 2024-04-26 09:02 | Outpatient (BNVA) | payer MEDICARE, MEDICAID, SELFPAY | PROVIDERS: PCP Internal Medicine; Visit Provider Internal Medicine | DX: Z86.73 Personal history of transient ischemic attack (TIA), and cerebral infarction without residual deficits (principal); Z79.01 Long term (current) use of anticoagulants; Z51.81 Encounter for therapeutic drug level monitoring | CPT/HCPCS: 85610; 99211 ==

== ENCOUNTER 2024-05-16 08:32 | Outpatient (AMB) | payer MEDICARE, MEDICAID, SELFPAY ==
--- NOTE | 2024-05-16 08:35 | MHC.OFFVIS ---
Vital Signs 05/16/24 08:45 Height 5 ft Weight 138 lb 0.15 oz BMI 27.0 BP 115/62 Blood Pressure Location Lt brachial Position Sitting Pulse 85 Pulse Source Pulse Oximeter Pulse Oximetry (%) 92 Oxygen Delivery Method Room Air Intake Visit Reasons: Polymyalgia rheumatica/cm Intake Note: Patient presents for Polymyalgia Rheumatica. I Feel muscle pain everywhere. I been in pain for 30 plus years. I take Arthritis Tylenol and it only works short term. 1/2 pill of Oxycodone and it's only short term relieve. Allergies vancomycin [VANCOMYCIN] Allergy (Intermediate, Verified 05/16/24 08:43) ITCHING/RASH metoclopramide [From Reglan] Adverse Reaction (Intermediate, Verified 05/16/24 08:43) Nausea and Vomiting Medication List - Last Reconciled 05/16/24 by Brandon Bull MD albuterol sulfate 90 mcg/actuation 2 puffs inhalation Q4H PRN albuterol sulfate 2.5 mg inhalation Q8H PRN amantadine HCl 100 mg PO DAILY amlodipine 5 mg PO DAILY atorvastatin 40 mg PO DAILY azithromycin 250 mg PO 3XW blood sugar diagnostic As directed carisoprodol (Soma) 350 mg PO TID cholecalciferol (vitamin D3) 25 mcg PO DAILY clopidogrel (Plavix) 75 mg PO DAILY diclofenac sodium 1% topical dulaglutide (Trulicity) 0.75 mg subcut QWEEK dulaglutide (Trulicity) 0.75 mg subcut QWEEK ezetimibe 10 mg PO DAILY 90 days famotidine 20 mg PO BEDTIME food supplemt, lactose-reduced (Boost) PO hydrocortisone 2.5% appl topical magnesium oxide 400 mg PO DAILY metformin ER 500mg (2 tabs) orally daily; metoprolol succinate ER 50 mg PO DAILY mupirocin 2% topical BID ondansetron HCl 8 mg PO Q12H PRN oxcarbazepine 300 mg PO BID oxycodone 5 mg PO BEDTIME PRN pramipexole mg PO sucralfate 1 g PO BID tiotropium-olodaterol 2.5-2.5 mcg/actuation (Stiolto Respimat) 2 puffs inhalation DAILY umeclidinium 62.5 mcg/actuation (Incruse Ellipta) 1 inh inhalation DAILY warfarin 5 mg See Protocol PO DIRECTED HPI Comments Details: This is a 68-year-old female who presents for evaluation of diffuse pain. She states that she was evaluated by Dr. Keene about 5 years ago. She states that she was diagnosed with fibromyalgia. She states that she has diffuse pain, fatigue, tingling and burning of her legs especially at night. She states that she was on different meds for fibromyalgia/neuropathy including gabapentin and Lyrica. She states that she would have headaches and fatigue. She discontinued them. She is unaware of any family history of an autoimmune rheumatic disease. [facility] Medical History History of colon polyps (~2009) Type II diabetes mellitus, well controlled Personal history of nicotine dependence Factor 5 Leiden mutation, heterozygous Obstructive sleep apnea on CPAP (~2008) Osteopenia (~2018) Pacemaker (~2021) History of CVA (cerebrovascular accident) (~2019) Hyperlipidemia PFO (patent foramen ovale) (~2019) HTN (hypertension) COPD (chronic obstructive pulmonary disease) Current use of anticoagulant therapy (~2019) Surgical History Hx of cystoscopy Hx of blepharoplasty History of esophagogastroduodenoscopy (EGD) History of colonoscopy History of unilateral oophorectomy History of cholecystectomy (~2000) History of bladder surgery (~1999) History of pacemaker (~2021) Family History Mother Stroke Multiple sclerosis Diabetes Father CAD (coronary artery disease) Social History Alcohol intake: never Patient Tobacco Use Status: Current everyday Tobacco user Tobacco use type: Cigarette Cigarettes Per Day: 4 Years Smoked: 40 +/- e-Cigarette/Vaping Use: Currently Using service: No Current occupational status: retired Review of Systems Const Reports fatigue and Reports weakness ENT Reports neck pain Musc Reports back pain, Reports arthralgias, Reports muscle weakness, Reports neck pain, Reports numbness, Reports radiating pain into limb and Reports tingling Neuro Reports numbness, Reports tingling and Reports weakness Endo Reports fatigue Physical Exam Vital Signs: Last Vital Signs Pulse 85 05/16/24 08:45 BP 115/62 05/16/24 08:45 Pulse Ox 92 05/16/24 08:45 Oxygen Delivery Method Room Air 05/16/24 08:45 BMI result Body Mass Index 27.0 Const General: cooperative, healthy appearing and comfortable Nutritional Appearance: overweight Orientation/consciousness: patient oriented x3 Limitations: no limitations HEENT Head: Yes normocephalic and Yes atraumatic Mouth: moist mucous membranes Resp Effort & Inspection: normal respiratory effort and able to speak in complete sentences Auscultation: wheezes Cardio Rate: regular rate Skin Other: Lesion on her left of her forehead suspicious for actinic keratosis Neuro General: patient oriented x3 Extrem Other: No active synovitis Normal range of motion of shoulders Negative straight leg raise test bilaterally Numerous fibromyalgia tender points Assessment & Plan Assessment & Plan (1) Fibromyalgia, primary: Code(s): M79.7 - Fibromyalgia Category: Medical Plan: This is a 68-year-old female who presents for evaluation of diffuse pain. She was diagnosed with fibromyalgia by Dr. Keene about 5 years ago. She could not tolerate different meds for fibromyalgia/neuropathy. I do not see any signs suggestive of an autoimmune rheumatic disease Discussed management of fibromyalgia with patient. Is a noninflammatory, non-autoimmune central afferent processing disorder leading to a diffuse pain syndrome. I suggested evaluation by a psychotherapist/psychiatrist to address any underlying anxiety/depression. Patient uses her CPAP regularly.. Try to follow sleep hygiene practices. Patient would benefit from increased physical activity, either through formal physical therapy or by joining a gym. Advised patient that she should start activity slowly and increase as tolerated. Consider low-impact exercises such as walking, swimming, aqua therapy stretching, yoga. Follow-up with PCP (2) Osteopenia: Onset Date: ~2018 Code(s): M85.80 - Other specified disorders of bone density and structure, unspecified site Category: Medical Qualifiers: Osteopenia location: multiple sites Qualified Code(s): M85.89 - Other specified disorders of bone density and structure, multiple sites Plan: Discussed osteopenia. Discussed calcium and vitamin-D supplementation as well as weight-bearing exercise. (3) Skin lesion of face: Code(s): L98.9 - Disorder of the skin and subcutaneous tissue, unspecified Category: Medical Plan: Advised patient to follow-up with Dermatology, may need a biopsy Plan I spent 45 minutes reviewing patient's chart, evaluating patient, counseling patient and documenting in the chart Coding Level of Care Code New Pt Level 4 (75905) Diagnoses Fibromyalgia, primary M79.7 Osteopenia of multiple sites M85.89 Osteopenia location: multiple sites Skin lesion of face L98.9
[2024-05-16 08:45] VITALS: BP 115/62; PULSE 85; O2SAT 92; BMI 27.0
== END 2024-05-16 09:28 | disposition home or self-care (01) ==
LOC: HO.RHE 08:33
PROVIDERS: PCP Internal Medicine; Visit Provider Student in an Organized Health Care Education/Training Program
DX: M79.7 Fibromyalgia (principal); M85.89 Other specified disorders of bone density and structure, multiple sites; L98.9 Disorder of the skin and subcutaneous tissue, unspecified
CPT/HCPCS: 99204

== ENCOUNTER → 2024-05-16 08:32 | Outpatient (BNVA) | payer MEDICARE, MEDICAID, SELFPAY | PROVIDERS: PCP Internal Medicine; Visit Provider Student in an Organized Health Care Education/Training Program | DX: M79.7 Fibromyalgia (principal); M85.89 Other specified disorders of bone density and structure, multiple sites; L98.9 Disorder of the skin and subcutaneous tissue, unspecified | CPT/HCPCS: 99202 ==

== ENCOUNTER 2024-05-17 09:55 | Outpatient (AMB) | payer MEDICARE, MEDICAID, SELFPAY ==
--- NOTE | 2024-05-17 10:19 | MHC.OFFVISCO ---
Intake Intake Visit Reasons: Anticoagulation Allergies vancomycin [VANCOMYCIN] Allergy (Intermediate, Verified 05/17/24 10:02) ITCHING/RASH metoclopramide [From Reglan] Adverse Reaction (Intermediate, Verified 05/17/24 10:02) Nausea and Vomiting Medication List - Last Reconciled 05/17/24 by Vonda Cam RN albuterol sulfate 90 mcg/actuation 2 puffs inhalation Q4H PRN albuterol sulfate 2.5 mg inhalation Q8H PRN amantadine HCl 100 mg PO DAILY amlodipine 5 mg PO DAILY atorvastatin 40 mg PO DAILY azithromycin 250 mg PO 3XW blood sugar diagnostic As directed carisoprodol (Soma) 350 mg PO TID cholecalciferol (vitamin D3) 25 mcg PO DAILY clopidogrel (Plavix) 75 mg PO DAILY diclofenac sodium 1% topical dulaglutide (Trulicity) 0.75 mg subcut QWEEK ezetimibe 10 mg PO DAILY 90 days famotidine 20 mg PO BEDTIME food supplemt, lactose-reduced (Boost) PO hydrocortisone 2.5% appl topical magnesium oxide 400 mg PO DAILY metformin ER 500mg (2 tabs) orally daily; metoprolol succinate ER 50 mg PO DAILY mupirocin 2% topical BID ondansetron HCl 8 mg PO Q12H PRN oxcarbazepine 300 mg PO BID oxycodone 5 mg PO BEDTIME PRN pramipexole mg PO sucralfate 1 g PO BID tiotropium-olodaterol 2.5-2.5 mcg/actuation (Stiolto Respimat) 2 puffs inhalation DAILY umeclidinium 62.5 mcg/actuation (Incruse Ellipta) 1 inh inhalation DAILY warfarin 5 mg See Protocol PO DIRECTED Nursing Note INR: 2.8 in therapeutic range Medications and supplements reviewed No changes in health, diet, medications, or supplements, Denies any signs and symptoms of bleeding or bruising or clotting. Bleeding, bruising, clotting discussed Nutritional guidance given Dose: 5MG X 3 DAYS/7.5MG X 4 DAYS F/U INR: 06/05/24 Patient verbalizes understanding of instructions given Anti-Coag Initial Assessment Social Hx Patient Tobacco Use Status: Current everyday Tobacco user Tobacco use type: Cigarette alcohol intake: never Coding Level of Care Code Est Patient Level 1 Diagnoses Current use of anticoagulant therapy Z79.01 Results AMB INR Fingerstick AMB INR Fingerstick 2.8 Last Edit by Vonda Cam RN on 05/17/24 10:12 MANUAL ENTRY Assessment & Plan Assessment & Plan (1) Current use of anticoagulant therapy: Onset Date: ~2019 Comment: (due to Stroke with PFO and factor 5 leiden) 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
[2024-05-17 10:20] LABS: Prothrombin Time Whole Bld POC 34.2 sec (11.1-13.5); ~PT, ~INR - Anti Coag Clinic 2.8 (0.9-1.1)
== END 2024-05-17 10:23 | disposition home or self-care (01) ==
LOC: HO.ACS 09:55
PROVIDERS: PCP Internal Medicine; Visit Provider Internal Medicine
DX: Z79.01 Long term (current) use of anticoagulants (principal)

== ENCOUNTER → 2024-05-17 09:55 | Outpatient (BNVA) | payer MEDICARE, MEDICAID, SELFPAY | PROVIDERS: PCP Internal Medicine; Visit Provider Internal Medicine | DX: Z86.73 Personal history of transient ischemic attack (TIA), and cerebral infarction without residual deficits (principal); Z79.01 Long term (current) use of anticoagulants; Z51.81 Encounter for therapeutic drug level monitoring | CPT/HCPCS: 85610; 99211 ==

== ENCOUNTER 2024-05-28 06:11 | Outpatient (REF) | payer MEDICARE, MEDICAID, SELFPAY ==
[2024-05-28 06:33] LABS: MANUAL DIFF FLAG NO
[2024-05-28 07:03] LABS: Basophils Percent Auto 0.4 % (0-2); Eosinophils Absolute Auto 0.1 X10*3/uL (0.0-0.4); Eosinophils Percent Auto 1.9 % (0-4); Hematocrit 36.2 % (37.0-47.0); Hemoglobin 11.7 g/dl (12.0-16.0); Imm Gran Abs Auto 0.03 X10*3/uL (0.00-0.03); Imm Gran Pct Auto 0.4 % (0.0-0.4); Lymphocytes Absolute Auto 3.1 X10*3/uL (1.2-4.9); Lymphocytes Percent Auto 40.5 % (20-40); Mean Corpuscular HGB Conc 32.3 g/dl (31.0-35.0); Mean Corpuscular Hemoglobin 29.6 pg (27.0-33.0); Mean Corpuscular Volume 91.6 fL (80.0-98.0); Mean Platelet Volume 8.8 fL (9.4-12.3); Monocytes Absolute Auto 0.8 X10*3/uL (0.1-1.2); Monocytes Percent Auto 10.3 % (2-11); Neutrophils Absolute Auto 3.5 x10*3/uL (2.0-8.3); Neutrophils Percent Auto 46.5 % (45-73); Platelet Count 345 X10*3/uL (160-400); Red Blood Count 3.95 X10*6/uL (4.20-5.50); Red Cell Distribution Width 13.7 % (11.0-16.0); White Blood Count 7.5 X10*3/uL (4.8-10.8)
[2024-05-28 07:16] LABS: Estimated Average Glucose 143 mg/dL; Hemoglobin A1C 153.4995 umol/L; Hemoglobin A1c % 6.6 % (<6.0); Total Hemoglobin (HGBA1C) 3127.6302 umol/L
[2024-05-28 07:29] LABS: Alanine Aminotransferase 16 U/L (0-31); Alkaline Phosphatase 101 U/L (39-117); Anion Gap 14 (12-20); Aspartate Amino Transferase 21 U/L (5-31); Bilirubin Total 0.2 mg/dL (0.0-1.0); Blood Urea Nitrogen 11 mg/dL (9-16); C Reactive Protein 0.27 mg/dL (< or = 0.50); Calcium 9.8 mg/dL (8.4-10.2); Carbon Dioxide 25 mmol/L (22-29); Chloride 108 mmol/L (96-108); Estimated Glomerular Filt Rate > 60; Glucose Random 161 mg/dL (60-115); Sodium 143 mmol/L (135-145); Total Protein 7.4 g/dL (6.5-8.0)
[2024-05-28 07:42] LABS: Erythrocyte Sedimentation Rate 55 MM/HR (0-20)
== END 2024-05-28 06:12 | disposition home or self-care (01) ==
LOC: HO.LAB 06:11
PROVIDERS: PCP Internal Medicine; Visit Provider Internal Medicine
DX: I10 Essential (primary) hypertension (principal); E11.9 Type 2 diabetes mellitus without complications; M54.50 Low back pain, unspecified
CPT/HCPCS: 36415; 80053; 83036; 85025; 85652; 86140

== ENCOUNTER 2024-06-05 09:02 | Outpatient (AMB) | payer MEDICARE, MEDICAID, SELFPAY ==
--- NOTE | 2024-06-05 09:11 | MHC.OFFVISCO ---
Intake Intake Visit Reasons: Anticoagulation Allergies vancomycin [VANCOMYCIN] Allergy (Intermediate, Verified 06/05/24 09:04) ITCHING/RASH metoclopramide [From Reglan] Adverse Reaction (Intermediate, Verified 06/05/24 09:04) Nausea and Vomiting Medication List - Last Reconciled 06/05/24 by Anny Orta RN albuterol sulfate 90 mcg/actuation 2 puffs inhalation Q4H PRN albuterol sulfate 2.5 mg inhalation Q8H PRN amantadine HCl 100 mg PO DAILY amlodipine 5 mg PO DAILY atorvastatin 40 mg PO DAILY azithromycin 250 mg PO 3XW blood sugar diagnostic As directed carisoprodol (Soma) 350 mg PO TID cholecalciferol (vitamin D3) 25 mcg PO DAILY clopidogrel (Plavix) 75 mg PO DAILY diclofenac sodium 1% topical dulaglutide (Trulicity) mg subcut ezetimibe 10 mg PO DAILY 90 days famotidine 20 mg PO BEDTIME food supplemt, lactose-reduced (Boost) PO hydrocortisone 2.5% appl topical magnesium oxide 400 mg PO DAILY metformin ER 500mg (2 tabs) orally daily; metoprolol succinate ER 50 mg PO DAILY mupirocin 2% topical BID ondansetron HCl 8 mg PO Q12H PRN oxcarbazepine 300 mg PO BID oxycodone 5 mg PO BEDTIME PRN pramipexole mg PO sucralfate 1 g PO BID tiotropium-olodaterol 2.5-2.5 mcg/actuation (Stiolto Respimat) 2 puffs inhalation DAILY umeclidinium 62.5 mcg/actuation (Incruse Ellipta) 1 inh inhalation DAILY warfarin 5 mg See Protocol PO DIRECTED Nursing Note INR: 2.1- in therapeutic range of 2-3 Medications and supplements reviewed- trulicity increased to 1.5 No changes in health, diet, medications, or supplements, Denies any signs and symptoms of bleeding or bruising or clotting. Bleeding, bruising, clotting discussed Nutritional guidance given Dose: 5mg x 3, 7.5mg x 4 F/U INR: 2.5 weeks Patient verbalizes understanding of instructions given pt with c.o belching - enc to notify GI Anti-Coag Initial Assessment Social Hx Patient Tobacco Use Status: Current everyday Tobacco user Tobacco use type: Cigarette alcohol intake: never Coding Level of Care Code Est Patient Level 1 Diagnoses Current use of anticoagulant therapy Z79.01 Assessment & Plan Assessment & Plan (1) Current use of anticoagulant therapy: Onset Date: ~2019 Comment: (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
[2024-06-05 09:12] LABS: Prothrombin Time Whole Bld POC 25.1 sec (11.1-13.5); ~PT, ~INR - Anti Coag Clinic 2.1 (0.9-1.1)
== END 2024-06-05 09:21 | disposition home or self-care (01) ==
LOC: HO.ACS 09:02
PROVIDERS: PCP Internal Medicine; Visit Provider Internal Medicine
DX: Z79.01 Long term (current) use of anticoagulants (principal)

== ENCOUNTER → 2024-06-05 09:02 | Outpatient (BNVA) | payer MEDICARE, MEDICAID, SELFPAY | PROVIDERS: PCP Internal Medicine; Visit Provider Internal Medicine | DX: Z86.73 Personal history of transient ischemic attack (TIA), and cerebral infarction without residual deficits (principal); Z79.01 Long term (current) use of anticoagulants; Z51.81 Encounter for therapeutic drug level monitoring | CPT/HCPCS: 85610; 99211 ==

== ENCOUNTER 2024-06-07 13:38 | Outpatient (AMB) | payer MEDICARE, MEDICAID, SELFPAY ==
[2024-06-07 13:53] VITALS: BP 120/82; PULSE 88; BMI 27.1
--- NOTE | 2024-06-07 13:53 | A.OFFVIS_ITS ---
Vital Signs 06/07/24 13:53 Height 5 ft Weight 138 lb 14.259 oz BMI 27.1 BP 120/82 Blood Pressure Location Lt brachial Position Sitting Pulse 88 Intake Visit Reasons: 6 mth f/up Intake Note: 6 month follow-up [place] check had some dizziness for a few min yesterday, had some today when reaching for something in the cabinet, and lastly had palpittions this morning Fisher Eel Required: No Allergies vancomycin [VANCOMYCIN] Allergy (Intermediate, Verified 06/05/24 09:04) ITCHING/RASH metoclopramide [From Reglan] Adverse Reaction (Intermediate, Verified 06/05/24 09:04) Nausea and Vomiting Medication List - Last Reconciled 06/07/24 by Raad Chisholm MD albuterol sulfate 90 mcg/actuation 2 puffs inhalation Q4H PRN albuterol sulfate 2.5 mg inhalation Q8H PRN amantadine HCl 100 mg PO DAILY amlodipine 5 mg PO DAILY atorvastatin 40 mg PO DAILY blood sugar diagnostic As directed carisoprodol (Soma) 350 mg PO TID PRN cholecalciferol (vitamin D3) 25 mcg PO DAILY clopidogrel (Plavix) 75 mg PO DAILY diclofenac sodium 1% topical dulaglutide (Trulicity) mg subcut ezetimibe 10 mg PO DAILY 90 days famotidine 20 mg PO BEDTIME food supplemt, lactose-reduced (Boost) PO hydrocortisone 2.5% appl topical magnesium oxide 400 mg PO DAILY metoprolol succinate ER 50 mg PO DAILY mupirocin 2% topical BID ondansetron HCl 8 mg PO Q12H PRN oxcarbazepine 300 mg PO BID oxycodone 5 mg PO BEDTIME PRN pramipexole mg PO sucralfate 1 g PO BID tiotropium-olodaterol 2.5-2.5 mcg/actuation (Stiolto Respimat) 2 puffs inhalation DAILY warfarin 5 mg See Protocol PO DIRECTED HPI Comments Details: Diane comes for follow-up. Today she said while she was moving her head she got really lightheaded and felt that the world was spinning. Today again she had a similar sensation. She also had fluttering in his chest. Comes for pacemaker evaluation. Denies any shortness of breath, orthopnea, PND. Recently getting worked up for elevated sed rate of unclear etiology. . She says she feels fatigued and tired. Denies any exertional chest pain. No lightheadedness, syncope. Takes all her medications. No major bleeding issues or neurologic events. [facility] Medical History History of colon polyps (~2009) Type II diabetes mellitus, well controlled Personal history of nicotine dependence Factor 5 Leiden mutation, heterozygous Obstructive sleep apnea on CPAP (~2008) Osteopenia (~2018) Pacemaker (~2021) History of CVA (cerebrovascular accident) (~2019) Hyperlipidemia PFO (patent foramen ovale) (~2019) HTN (hypertension) COPD (chronic obstructive pulmonary disease) Current use of anticoagulant therapy (~2019) Surgical History Hx of cystoscopy Hx of blepharoplasty History of esophagogastroduodenoscopy (EGD) History of colonoscopy History of unilateral oophorectomy History of cholecystectomy (~2000) History of bladder surgery (~1999) History of pacemaker (~2021) Family History Mother Stroke Multiple sclerosis Diabetes Father CAD (coronary artery disease) Social History Alcohol intake: never Patient Tobacco Use Status: Current everyday Tobacco user Tobacco use type: Cigarette Cigarettes Per Day: 4 Years Smoked: 40 +/- e-Cigarette/Vaping Use: Currently Using service: No Current occupational status: retired Review of Systems Const Denies chills, Denies fatigue, Denies fever(s), Denies frequent falls, Denies weakness, Denies weight gain and Denies weight loss ENT Denies dizziness Card Denies chest pain, Denies leg edema, Denies lightheadedness, Denies palpitations, Denies dyspnea, Denies dyspnea on exertion, Denies orthopnea and Denies other (loss of consciousness) Resp Denies cough, Denies dyspnea and Denies dyspnea on exertion GI Denies hematochezia and Denies change in stool character Musc Denies abnormal gait, Denies muscle weakness, Denies numbness, Denies radiating pain into limb and Denies tingling Neuro Denies abnormal gait, Denies dizziness, Denies frequent falls, Denies numbness, Denies tingling and Denies weakness Endo Denies fatigue and Denies palpitations Physical Exam Vital Signs: Last Vital Signs Pulse 88 06/07/24 13:53 BP 120/82 06/07/24 13:53 BMI result Body Mass Index 27.1 Const General: cooperative, healthy appearing, comfortable, no acute distress and anxious Orientation/consciousness: patient oriented x3 Neck Neck: Yes normal visual inspection and Yes no JVD Carotids: normal carotid upstroke Resp Effort & Inspection: normal respiratory effort Auscultation: clear to auscultation bilaterally, no crackles, no rales, no rhonchi and wheezes expiratory wheezes and right lower Cardio Jugular venous distension: no JVD Rate: tachycardic Rhythm: regular rhythm Heart sounds: S1 normal heart sound present, S2 normal heart sound present, no gallops, no murmurs and no rubs Peripheral pulses: Peripheral pulses 2+ throughout Neuro General: patient oriented x3 Extrem General: Yes normal to inspection, No no pedal edema and No calf tenderness Office Procedures Cardiac Device Check Cardiac Device Check Details: Dual-chamber Medtronic pacemaker in place. Programmed in MVP mode at 60 beats per minute. Atrial pacing 3% of time. No arrhythmias detected. Atrial and ventricular pacing thresholds adequate and reprogrammed to enhance battery life. Atrial ventricular sensing is adequate. Pacing lead impedance is stable. Battery life is excellent at 13 years [id number] Cardiac Device Check, pacemaker dual lead Procedure code (CPT) selection complete Assessment & Plan Assessment & Plan (1) CAD (coronary artery disease): Code(s): I25.10 - Atherosclerotic heart disease of [place] coronary artery without angina pectoris Category: Medical Plan: CAD status post RCA stenting with diffuse disease other segments. Currently not having any symptoms suggestive of angina. Continue Plavix for total of 1 year. Although if she requires GI procedure as absolute necessity, the Plavix can be withheld in 6 months after the procedure. Continue aggressive risk factor modification. Blood pressure is currently well optimized advised to monitor blood pressure at home maintain a log. Goal blood pressure less than 130/84. Continue high-intensity statin therapy and ezetimibe. Advised lipid panel in near future. Target goal LDL less than 55 mg/dL. Discussed with her. Encouraged to maintain activity level as tolerated. (2) Cardiac pacemaker in situ: Code(s): Z95.0 - Presence of cardiac pacemaker Category: Medical Plan: Cardiac pacemaker in-situ for dizziness and pauses. Although she continues to have these episodes of dizziness. Pacemaker is working well. Reprogrammed for adequate function. Will follow in 3 months time remotely. Follow up in the clinic in 6 months time. (3) History of CVA (cerebrovascular accident): Onset Date: ~2019 Comment: (Right embolic stroke while on ASA - acute cortical infarct right precentral g yrus - 09/19/2019) Code(s): Z86.73 - Personal history of transient ischemic attack (TIA), and cerebral infarction without residual deficits Category: Medical Plan: Prior history of CVA with no recurrent events on warfarin therapy. She does have a history of PFO was felt not to be a candidate for closure. Continue warfarin therapy. Target INR between 2 and 3 being followed by [facility]. Continue aggressive vascular risk factor modifications above. Will follow up in the clinic in 6 months time, sooner p.r.n.. Thank you for allowing me to partake in his care Orders: Orders Lipid Panel Today I25.10 - Atherosclerotic heart disease of [place] coronary artery without angina pectoris Coding Level of Care Code Est Pt Level 4 (46183) Complex EM visit Add On G2211 Diagnoses CAD (coronary artery disease) I25.10 Cardiac pacemaker in situ Z95.0 History of CVA (cerebrovascular accident) Z86.73 CPT Codes Cardiac Device Check - Cardiac Device 2: 30002-MC Cardiac Device Check, pacemaker dual lead ([id number])
== END 2024-06-07 14:22 | disposition home or self-care (01) ==
PROVIDERS: PCP Internal Medicine; Visit Provider Internal Medicine Cardiovascular Disease
DX: I25.10 Atherosclerotic heart disease of native coronary artery without angina pectoris (principal); Z95.0 Presence of cardiac pacemaker; Z86.73 Personal history of transient ischemic attack (TIA), and cerebral infarction without residual deficits
CPT/HCPCS: 93280; 99214; G2211

== ENCOUNTER → 2024-06-07 13:38 | Outpatient (BNVA) | payer MEDICARE, MEDICAID, SELFPAY | PROVIDERS: PCP Internal Medicine; Visit Provider Internal Medicine Cardiovascular Disease | DX: I25.10 Atherosclerotic heart disease of native coronary artery without angina pectoris (principal); I10 Essential (primary) hypertension; Z86.73 Personal history of transient ischemic attack (TIA), and cerebral infarction without residual deficits; Z45.010 Encounter for checking and testing of cardiac pacemaker pulse generator [battery] | CPT/HCPCS: 93280; 99212 ==

== ENCOUNTER 2024-06-21 08:51 | Outpatient (AMB) | payer MEDICARE, MEDICAID, SELFPAY ==
[2024-06-21 08:58] LABS: Prothrombin Time Whole Bld POC 45.3 sec (11.1-13.5); ~PT, ~INR - Anti Coag Clinic 3.8 (0.9-1.1)
--- NOTE | 2024-06-21 09:07 | MHC.OFFVISCO ---
Intake Intake Visit Reasons: Anticoagulation Allergies vancomycin [VANCOMYCIN] Allergy (Intermediate, Verified 06/21/24 08:53) ITCHING/RASH metoclopramide [From Reglan] Adverse Reaction (Intermediate, Verified 06/21/24 08:53) Nausea and Vomiting Medication List - Last Reconciled 06/21/24 by Catherine Bales, RN albuterol sulfate 90 mcg/actuation 2 puffs inhalation Q4H PRN albuterol sulfate 2.5 mg inhalation Q8H PRN amantadine HCl 100 mg PO DAILY amlodipine 5 mg PO DAILY atorvastatin 40 mg PO DAILY blood sugar diagnostic As directed carisoprodol (Soma) 350 mg PO TID PRN cholecalciferol (vitamin D3) 25 mcg PO DAILY clopidogrel (Plavix) 75 mg PO DAILY diclofenac sodium 1% topical dulaglutide (Trulicity) mg subcut ezetimibe 10 mg PO DAILY 90 days famotidine 20 mg PO BEDTIME food supplemt, lactose-reduced (Boost) PO hydrocortisone 2.5% appl topical magnesium oxide 400 mg PO DAILY metoprolol succinate ER 50 mg PO DAILY mupirocin 2% topical BID ondansetron HCl 8 mg PO Q12H PRN oxcarbazepine 300 mg PO BID oxycodone 5 mg PO BEDTIME PRN pramipexole mg PO sucralfate 1 g PO BID tiotropium-olodaterol 2.5-2.5 mcg/actuation (Stiolto Respimat) 2 puffs inhalation DAILY warfarin 5 mg See Protocol PO DIRECTED Nursing Note INR 3.8?out of therapeutic range of 2-3 Medications and supplements reviewed Patient status: no changes Medications or supplements: no changes Diet: usual diet for pt but states the Trulicity makes her belch and she has frequent nausea. Takes Boost nutritional supplement 3 X/week Denies any signs and symptoms of bleeding or clotting or unusual bruising Bleeding, bruising, clotting discussed Nutritional guidance given: to have serving of greens today Dose: hold todays dose then resume usual dose of 7.5mg X 4 days and 5mg X 3 days. Today's held dose is 5mg. F/U INR Date : 1 week?? Patient verbalizing understanding of instructions given. 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
--- OUTSIDE RECORDS SUMMARY | 2024-06-27 00:32 | XMS_ITS | Continuity of Care Document ---
Author Organization [facility] Address [address] [place] [id number]- Care Team Providers Care Electrotype Caster Name Role Phone Garfield MCKAY, Manuel Primary Care Physician [phone] Encounter [facility] Date(s): 05/02/24 - 06/01/24 [facility] [address] [place] [id number] Attending Physician: AdmAmbrosio [id number] Admitting Physician: AdmtrMaksim Referring Physician: Admtr, [id number] Encounter Type: Triage Allergies, Adverse Reactions, Alerts Substance Criticality Severity Reaction Reaction Severity Status vancomycin Active Reglan Active Immunizations Given and Recorded Vaccine Date Status Refusal Reason SARS-CoV-2 (COVID-19) mRNA-1273 vaccine 10/06/20 G iven SARS-CoV-2 (COVID-19) mRNA-1273 vaccine 09/08/20 G iven pneumococcal 13-valent vaccine 05/05/18 Given Medications amLODIPine 10 mg oral tablet 90 each, 0 Refill(s), TAKE 1 TABLET BY MOUTH EVERY DAY, 0 Refills, 11/10/23 8:39:00 AM EDT, Partial fill upon patient request if the prescription is for a schedule II opioid drug. Start Date: 11/10/23 Status: Ordered Repeat number: 1 aspirin 81 mg oral delayed release tablet 81 mg, 1, tablet, By Mouth, Daily, # 90 tablet, Refills 0, Tot. Refills 0, Maintenance, 01/31/24 2:12:00 PM EDT, Route to Pharmacy Electronically, [facility]/pharmacy #[id number], Partial fill upon patient requestif the prescription is for a schedule II opioid drug., 152, cm, 07/16/24 13:16:00 EDT, Height Start Date: 01/31/24 Status: Ordered Quantity: 90.0 Unit: tablet Repeat number: 1 atorvastatin 40 mg oral tablet 1 tablet = 40 mg, By Mouth, Daily, 0 Refills, Maintenance, 12/27/19 6:56:00 PM EDT Start Date: 12/27/19 Status: Ordered Repeat number: 1 clopidogrel 75 mg oral tablet 75 mg, 1, tablet, By Mouth, Daily, # 90 tablet, Refills 3, Tot. Refills 3, Maintenance, 01/31/24 2:12:00 PM EDT, Route to Pharmacy Electronically, [facility]/pharmacy #[id number], Partial fill upon patient requestif the prescription is for a schedule II opioid drug., 152, cm, 01/31/24 13:16:00 EDT, Height Start Date: 01/31/24 Status: Ordered Quantity: 90.0 Unit: tablet Repeat number: 4 enoxaparin 60 mg/0.6 mL injectable solution 6 mL, 0 Refill(s), INJECT 1 PREFILLED SYRINGE SUBCUTANEOUSLY EVERY 12 HOURS DIRECTED, 0 Refills,11/10/23 8:39:00 AM EDT, Partial fill upon patient request if the prescription is for a schedule II opioid drug. Start Date: 11/10/23 Status: Ordered Repeat number: 1 ezetimibe 10 mg oral tablet 1 tablet = 10 mg, By Mouth, Daily, # 90 tablet, 0 Refills, Maintenance, 08/09/22 1:18:00 PM EST, Tablet, Partial fill upon patient request if the prescription is for a schedule II opioid drug. Start Date: 08/09/22 Status: Ordered Quantity: 90.0 Unit: tablet Repeat number: 1 hydrocortisone 2.5% topical cream 28 Gm, 0 Refill(s), APPLY TO RASH ON EARS TWICE DAILY X2 WKS ON, 1 WK OFF. REPEAT NEEDED FOR FLAKING/ITCH., 0 Refills, 11/10/23 8:39:00 AM EDT, Partial fill upon patient request if the prescriptionis for a schedule II opioid drug. Start Date: 11/10/23 Status: Ordered Repeat number: 1 magnesium oxide 250 mg oral tablet 2 tablet = 500 mg, By Mouth, Daily, # 20 tablet, 0 Refills, Maintenance, 04/17/20 1:13:00 PM EDT, Tablet Start Date: 04/17/20 Stop Date: 04/27/20 Status: Ordered Quantity: 20.0 Unit: tablet Repeat number: 1 magnesium oxide 400 mg oral tablet 90 each, 0 Refill(s), TAKE 1 TABLET BY MOUTH EVERY DAY, 0 Refills, 11/10/23 8:39:00 AM EDT, Partial fill upon patient request if the prescription is for a schedule II opioid drug. Start Date: 11/10/23 Status: Ordered Repeat number: 1 metFORMIN 1000 mg oral tablet, extended release 1 tablet = 1,000 mg, By Mouth, 2 times a day, # 30 tablet, 0 Refills, Maintenance, 10/18/18 2:21:35 PM EDT, ER Tablet Start Date: 10/18/18 Status: Ordered Quantity: 30.0 Unit: tablet Repeat number: 1 Metoprolol Succinate ER 50 mg oral tablet, extended release 90 each, 0 Refill(s), TAKE 1 TABLET BY MOUTH DAILY, 0 Refills, 11/10/23 8:39:00 AM EDT, Partial fillupon patient request if the prescription is for a schedule II opioid drug. Start Date: 11/10/23 Status: Ordered Repeat number: 1 nortriptyline 10 mg oral capsule 90 each, 0 Refill(s), TAKE 1 CAPSULE AT NIGHT FOR 2 WEEKS THEN INCREASE TO 2 CAPSULES AT NIGHT(BEDTIME), Refills 0, 11/10/23 8:39:00 AM EDT, Partial fill upon patient request if the prescription is for a schedule II opioid drug. Start Date: 11/10/23 Status: Ordered Repeat number: 1 omeprazole 40 mg oral enteric coated capsule 1 capsule = 40 mg, By Mouth, Daily, # 90 capsule, 0 Refills, Maintenance, 08/09/22 1:17:00 PM EST, EC Capsule, Partial fill upon patient request if the prescription is for a schedule II opioid drug. Start Date: 08/09/22 Status: Ordered Quantity: 90.0 Unit: capsule Repeat number: 1 OXcarbazepine 150 mg oral tablet 2, tablet, By Mouth, 2 times a day, DAYS INSTR:FOR TRIGMEINAL NEURALGIA, # 360 tablet, Refills 2, Maintenance, 03/21/24 12:59:00 PM EDT, Route to Pharmacy Electronically, [id number], 152, cm, 01/31/24 13:16:00 EDT, Height Start Date: 03/21/24 Status: Ordered Quantity: 360.0 Unit: tablet Repeat number: 1 oxyCODONE 5 mg oral tablet 28 each, 0 Refill(s), TAKE 1 TABLET (5 MG TOTAL) BY MOUTH DAILY NEEDED, Refills 0, 11/10/23 8:39:00 AM EDT, Partial fill upon patient request if the prescription is for a schedule II opioid drug. Start Date: 11/10/23 Status: Ordered Repeat number: 1 pramipexole 1 mg oral tablet 45 each, 0 Refill(s), PLEASE SEE ATTACHED FOR DETAILED DIRECTIONS, 0 Refills, 11/10/23 8:39:00 AM EDT, Partial fill upon patient request if the prescription is for a schedule II opioid drug. Start Date: 11/10/23 Status: Ordered Repeat number: 1 Stiolto Respimat 60 ACT 2.5 mcg-2.5 mcg/inh inhalation aerosol 2 puffs, Inhalation, Every 24 hours, # 4 Gm, 5 Refills, Maintenance, 05/02/24 9:42:00 AM EDT, Aerosol, [facility]/pharmacy #[id number], copd j44.9, 152, cm, 05/02/24 9:10:00 EDT, Height Start Date: 05/02/24 Stop Date: 10/29/24 Status: Ordered Quantity: 4.0 Unit: g Repeat number: 6 Ventolin HFA 108 mcg/inh inhalation aerosol with adapter 2 puffs, Inhalation, 4 times a day, PRN NEEDED FOR WHEEZING - USE WITH SPACER CHAMBER, # 18 each, 5 Refills, Maintenance, 04/24/24 11:17:00 AM EDT, [id number], 152, cm, 01/31/24 13:16:00 EDT, Height Start Date: 04/24/24 Status: Ordered Quantity: 18.0 Unit: each Repeat number: 1 Vitamin D3 2000 intl units oral tablet 1 tablet = 2,000 International_Units, By Mouth, Daily, 0 Refills, Maintenance, 06/24/15 2:41:23 PM EST Start Date: 06/24/15 Status: Ordered Repeat number: 1 warfarin 5 mg oral tablet 180 each, 0 Refill(s), TAKE 1-2 TABLET(S) DAILY DIRECTED BY [facility]., 0 Refills, :39:00 AM EDT, Partial fill upon patient request if the prescription is for a schedule II opioid drug. Start Date: 11/10/23 Status: Ordered Repeat number: 1 Problem List Condition Confirmation Course Effective Dates Status H ealth Status Informant Abdominal bloating Confirmed Active Stroke Confirmed 09/19/19 Active Chest pain Confirmed Active COPD, group B, by GOLD 2017 classification Confirmed Active Ectatic thoracic aorta Confirmed Active Early satiety Confirmed Active Factor 5 Leiden mutation, heterozygous Confirmed Active Hypersomnia due to another medical condition Confirmed Active Hypersomnia due to medical condition Confirmed Active HTN (hypertension) Confirmed Active Multiple lung nodules on CT Confirmed Active Obstructive sleep apnea Confirmed Active Palpitations Confirmed Active Restless leg syndrome Confirmed Active Odynophagia Confirmed Active Tobacco abuse Confirmed Active DM2 (diabetes mellitus, type 2) Confirmed Active Social History Social History Type Response Tobacco Other: pd. Sex Sex Representation Female (finding) Cardiology * Event Display: Holter Report Authored Date: Laboratory * Event Display: Non BH Lab Results Authored Date: * Event Display: Non BH Lab Results Authored Date: Radiology * Event Display: X-Ray Chest, Non- BH Authored Date: * Event Display: Non BH Radiology Results Authored Date: * Event Display: Non BH Radiology Results Authored Date: Patient Care team information Care Team Personnel Name: Manuel Merrill MD Position: [facility] Outreach Member Role: PCP Address: [address] [place] [address] [address] Telecom: Name: Tawanna Mckeon Position: S Outreach Member Role: Lifetime Consulting Physician Care Team Related Persons Name: MITCHELL SMITH Name: VICENTE SMITH Insurance Providers Guarantor name: MELVIN SMITH Health Plan Information #: 1 Payer: MEDICARE PART B OUTPT Member Number: NA Policy Number: NA Group Number: NA Health Plan Information #: 2 Payer: [place] Member Number: NA Policy Number: NA Group Number: NA
== END 2024-06-21 09:14 | disposition home or self-care (01) ==
LOC: HO.ACS 08:51
PROVIDERS: PCP Internal Medicine; Visit Provider Internal Medicine
DX: Z79.01 Long term (current) use of anticoagulants (principal)

== ENCOUNTER → 2024-06-21 08:51 | Outpatient (BNVA) | payer MEDICARE, MEDICAID, SELFPAY | PROVIDERS: PCP Internal Medicine; Visit Provider Internal Medicine | DX: Z86.73 Personal history of transient ischemic attack (TIA), and cerebral infarction without residual deficits (principal); Z79.01 Long term (current) use of anticoagulants; Z51.81 Encounter for therapeutic drug level monitoring | CPT/HCPCS: 85610; 99211 ==

== ENCOUNTER 2024-06-28 08:47 | Outpatient (AMB) | payer MEDICARE, MEDICAID, SELFPAY ==
--- NOTE | 2024-06-28 08:57 | MHC.OFFVISCO ---
Intake Intake Visit Reasons: Anticoagulation Allergies vancomycin [VANCOMYCIN] Allergy (Intermediate, Verified 06/28/24 08:53) ITCHING/RASH metoclopramide [From Reglan] Adverse Reaction (Intermediate, Verified 06/28/24 08:53) Nausea and Vomiting Medication List - Last Reconciled 06/28/24 by Anny Orta RN albuterol sulfate 90 mcg/actuation 2 puffs inhalation Q4H PRN albuterol sulfate 2.5 mg inhalation Q8H PRN amantadine HCl 100 mg PO DAILY amlodipine 5 mg PO DAILY atorvastatin 40 mg PO DAILY blood sugar diagnostic As directed carisoprodol (Soma) 350 mg PO TID PRN cholecalciferol (vitamin D3) 25 mcg PO DAILY clopidogrel (Plavix) 75 mg PO DAILY diclofenac sodium 1% topical dulaglutide (Trulicity) mg subcut ezetimibe 10 mg PO DAILY 90 days famotidine 20 mg PO BEDTIME food supplemt, lactose-reduced (Boost) PO hydrocortisone 2.5% appl topical magnesium oxide 400 mg PO DAILY metoprolol succinate ER 50 mg PO DAILY mupirocin 2% topical BID ondansetron HCl 8 mg PO Q12H PRN oxcarbazepine 300 mg PO BID oxycodone 5 mg PO BEDTIME PRN pramipexole mg PO sucralfate 1 g PO BID tiotropium-olodaterol 2.5-2.5 mcg/actuation (Stiolto Respimat) 2 puffs inhalation DAILY warfarin 5 mg See Protocol PO DIRECTED Nursing Note INR: 2.3 in therapeutic range of 2-3 Medications and supplements reviewed- no changes No changes in health, diet, medications, or supplements, Denies any signs and symptoms of bleeding or bruising or clotting. Bleeding, bruising, clotting discussed Nutritional guidance given Dose: 5mg x 3, 7.5mg x 4 F/U INR: 2 weeks Patient verbalizes understanding of instructions given Anti-Coag Initial Assessment Social Hx Patient Tobacco Use Status: Current everyday Tobacco user Tobacco use type: Cigarette alcohol intake: never Coding Level of Care Code Est Patient Level 1 Diagnoses Current use of anticoagulant therapy Z79.01 Results AMB INR Fingerstick AMB INR Fingerstick 2.3 Last Edit by Anny Orta RN on 06/28/24 08:58 interface delay Assessment & Plan Assessment & Plan (1) Current use of anticoagulant therapy: Onset Date: ~2019 Comment: (due to Stroke with PFO and factor 5 leiden) 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
[2024-06-28 08:58] LABS: Prothrombin Time Whole Bld POC 27.8 sec (11.1-13.5); ~PT, ~INR - Anti Coag Clinic 2.3 (0.9-1.1)
== END 2024-06-28 09:59 | disposition home or self-care (01) ==
LOC: HO.ACS 08:47
PROVIDERS: PCP Internal Medicine; Visit Provider Internal Medicine
DX: Z79.01 Long term (current) use of anticoagulants (principal)

== ENCOUNTER → 2024-06-28 08:47 | Outpatient (BNVA) | payer MEDICARE, MEDICAID, SELFPAY | PROVIDERS: PCP Internal Medicine; Visit Provider Internal Medicine | DX: Z86.73 Personal history of transient ischemic attack (TIA), and cerebral infarction without residual deficits (principal); Z79.01 Long term (current) use of anticoagulants; Z51.81 Encounter for therapeutic drug level monitoring | CPT/HCPCS: 85610; 99211 ==

== ENCOUNTER 2024-06-30 06:54 | Outpatient (REF) | payer MEDICARE, MEDICAID, SELFPAY ==
[2024-06-30 07:19] LABS: MANUAL DIFF FLAG NO
[2024-06-30 07:32] LABS: Basophils Percent Auto 0.4 % (0-2); Eosinophils Absolute Auto 0.2 X10*3/uL (0.0-0.4); Eosinophils Percent Auto 2.1 % (0-4); Hemoglobin 11.7 g/dl (12.0-16.0); Imm Gran Abs Auto 0.02 X10*3/uL (0.00-0.03); Imm Gran Pct Auto 0.3 % (0.0-0.4); Lymphocytes Absolute Auto 2.7 X10*3/uL (1.2-4.9); Lymphocytes Percent Auto 34.4 % (20-40); Mean Corpuscular HGB Conc 32.5 g/dl (31.0-35.0); Mean Corpuscular Hemoglobin 29.3 pg (27.0-33.0); Mean Platelet Volume 8.9 fL (9.4-12.3); Monocytes Absolute Auto 0.8 X10*3/uL (0.1-1.2); Monocytes Percent Auto 10.4 % (2-11); Neutrophils Absolute Auto 4.1 x10*3/uL (2.0-8.3); Neutrophils Percent Auto 52.4 % (45-73); Platelet Count 345 X10*3/uL (160-400); Red Cell Distribution Width 14.1 % (11.0-16.0); White Blood Count 7.8 X10*3/uL (4.8-10.8)
[2024-06-30 07:43] LABS: Appearance Urine Cloudy; Color Urine Yellow; Glucose Urine UA Negative (Negative); Leukocyte Esterase Urine Small (1+) (Negative); Nitrite Urine Negative (Negative); Specific Gravity - Urine 1.025 (1.005-1.025); UMIC TRIGGER UACC YES; Urine Blood Negative (Negative); Urine Ketones Negative (Negative); Urine Protein Negative (Neg-Trace)
[2024-06-30 07:55] LABS: Bacteria Urine 2+ (None Seen); Hyaline Casts Urine 0-2 /LPF (0-2); RBC Urine 0-2 /HPF (0-2); Squamous Epithelial Cell Urine >20 /HPF (0-2); UACC Culture Trigger YES
[2024-06-30 08:10] LABS: Cholesterol 150 mg/dL (<200); HDL Cholesterol 77 mg/dL (>40); LDL Cholesterol Calculated 61 mg/dL (<100); Triglycerides 63 mg/dL (<150)
[2024-06-30 08:14] LABS: C Reactive Protein 0.26 mg/dL (< or = 0.50); Iron 60 mcg/dL (30-160); Lipase 13 U/L (8-78); Percent Iron Saturation 17 % (15-50); Total Iron Binding Capacity 349 mcg/dL (228-428); Unsaturated Iron Binding 289 ug/dL
[2024-06-30 08:20] LABS: Erythrocyte Sedimentation Rate 53 MM/HR (0-20)
[2024-06-30 08:27] LABS: Ferritin 9 ng/mL (10-250)
[2024-06-30 08:37] LABS: Folate 10.5 ng/mL (> or = 4.0); Vitamin B12 1715 pg/mL (200-900)
[2024-07-03 11:53] LABS: Anti Nuclear Antibody Screen NEGATIVE (NEGATIVE)
[2024-07-03 21:59] LABS: Anti DNA DS Antibody 5 IU/mL
== END 2024-06-30 06:55 | disposition home or self-care (01) ==
LOC: HO.LAB 06:54
PROVIDERS: PCP Internal Medicine; Referring Provider Internal Medicine Cardiovascular Disease; Visit Provider Internal Medicine
DX: I25.10 Atherosclerotic heart disease of native coronary artery without angina pectoris (principal); D64.9 Anemia, unspecified; M25.50 Pain in unspecified joint; R70.0 Elevated erythrocyte sedimentation rate; R11.0 Nausea; R35.0 Frequency of micturition
CPT/HCPCS: 36415; 80061; 81001; 82607; 82728; 82746; 83540; 83690; 85025; 85652; 86038; 86140; 86225; 87086

== ENCOUNTER 2024-07-04 10:16 | Outpatient (AMB) | payer MEDICARE, MEDICAID, SELFPAY ==
[2024-07-04 10:17] VITALS: BP 113/48; PULSE 88; BMI 26.7
--- NOTE | 2024-07-04 10:17 | MHC.OFFVIS ---
Vital Signs 07/04/24 10:17 Height 5 ft Weight 136 lb 10.986 oz BMI 26.7 BP 113/48 L Blood Pressure Location Lt brachial Position Sitting Pulse 88 Intake Visit Reasons: 4 month f/u Intake Note: Diane presents in the office as a 4 month follow up. CC: She states that she is having issues with her stomach. She states that she does not have a BM as often as she would like. She states that she did have blood that was hemorrhoid related. Sales Support Technician Required: No Allergies vancomycin [VANCOMYCIN] Allergy (Intermediate, Verified 07/04/24 10:17) ITCHING/RASH metoclopramide [From Reglan] Adverse Reaction (Intermediate, Verified 07/04/24 10:17) Nausea and Vomiting HPI Comments Details: This is a 66-year-old female past medical history of COPD, factor 5 laden heterozygosity, PFO (not a candidate for closure), history of CVA, on warfarin, personal history of polyps, who presents to the office for post procedure follow up. Initial visit 05/03/22: Patient states that for the past 1 year, she has had tremendous fatigue, to the point where there are some days when she does not even have the energy to get out of bed. For the past 2-3 months, she has also been noticing increased bloating, early satiety, decreased appetite and nausea. Reports increased nausea and burping. She has lost around 15 lb during this time. This is also associated with loose watery diarrhea with urgency. Triggered by food intake. Nighttime symptoms present. At an average, has 5-6 liquidy bowel movements which are nonbloody. She thinks she may have had 1-2 black bowel movements last month. Most recent endoscopy was a colonoscopy by Dr. Casey 5-6 years ago per her report. Was told she had polyps and will be due for repeat in 5 years. Of note, previous endoscopy notes by Dr. Echavarria also mentions family history, but patient denies any family history of colon cancer in first-degree relatives. Sister has colon polyps. Of note, she also brings up chronic complaint of dysphagia. She has had this for many years. Describes it as a sensation of food getting stuck in middle of her chest causing immense pain and nausea. Previous workup as per report has included barium study, upper endoscopy, motility study. All this was done more than 5 years ago and [facility]. She was told she possibly has esophageal spasm , but is not on any treatment. Patient was recently seen in the emergency room in January for fevers and left lower quadrant pain. CT scan was done that was read with stomach wall thickening, panc tail calcifications and L sided colitis. EGD/Colonoscopy 05/2022: Grade A esophagitis Esophageal spasms Empiric Savary dilation to 20 mm? Gastritis (biopsy) Normal duodenum Normal colon and terminal ileum mucosa Total of 4 polyps removed from ascending, transverse colon and rectum. Diverticulosis External and internal hemorrhoids Path: A. Stomach, random, biopsy:? Oxyntic mucosa within normal limits; no Helicobacter organisms seen. B.? Colon, transverse, polypectomies (2):? Tubular adenomata; negative for high-grade dysplasia or carcinoma. C.? Colon, ascending, polypectomy:? Tubular adenoma; negative for high-grade dysplasia or carcinoma. D.? Rectum, polypectomy:? Hyperplastic mucosal polyp. 06/18/22: While the nausea, early satiety and weight loss seems to have stabilized after starting omeprazole, she continues to report intermittent sensation food getting stuck in her mid chest. Yesterday morning, also had severe episode of heartburn with regurgitation. Had a barium swallow yesterday, which has not been read yet. Reviewed medication use, has been taking omeprazole with meal, not before. Also continues to smoke. Records [place] [facility] re esophageal motility pending. 09/01/22: Motility study reviewed. Normal motility. Patient continues to complain of significant nausea and pain in her chest that radiates to her back. Associated with nausea but no vomiting or regurgitation. Nausea improves with food intake. Has had some more weight loss, although not to the same degree as before. This was also discussed with the patient over the phone last week, and a CT angio abdomen has already been ordered to rule out chronic mesenteric ischemia, she does have significant peripheral vascular disease (sees Dr. Venegas at [facility]). Labs reviewed, was noted to have elevated ESR January 2022. 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 Patient is quite frustrated that she has daily fatigue and very low energy to do anything. Continues to have sensation of difficulty swallowing and sensation of food getting stuck along with nausea without any unifying diagnosis. Also reports joint stiffness all over her body specially in the morning. Sometimes, even getting up the stairs is a huge task. 05/23/23: Reports had not followed up as had been feeling quite well. Abd discomfort and nausea had resolved. She had also gained her weight back. However the past few weeks feels that she now has a gnawing pain in the epigastric region assoc with nausea. Notices discomfort is worse when she is hungry. A week ago also noticed a different odor to her stool for a couple of days, but did not remember to actually look for the color of the stool. Continues to smoke - almost 4-5 cigs a day but trying to quit. No NSAIDs. 10/04/23: Normal esophagus (dilation) Normal stomach (biopsy) Normal duodenum Diagnosis Stomach, biopsy: Antral-type and oxyntic mucosa with mild chronic inactive inflammation; no Helicobacter organisms seen. 10/19/23: Reports improvement in swallowing since empiric dilation. Nausea better as well. Cont to report postprandial discomfort and bloating with feeling of fullness. Patient also recently seen by Cardiology for symptoms of lightheadedness and atypical chest pain. Scheduled for a perfusion scan. 03/07/24: Here for follow up. In the meantime, had cardiac cath with revascularization of RCA (Dr Lanza, [facility]). Also reports experienced gnawing abd pain with nausea for which she had called the office. Carafate rxed by Dr German. Carafate helped a bit. Also reports loose BM immediately after taking a metformin dose. Main issue is remains fatigue, stays in bed most of the day. PRev have discussed rheum evaluation with pt yaron for ? PMR based on her sx distribution and elevated ESR but has not been seen recently. Pt also with osteopenia on DEXA. 07/04/24: Pt here for routine follow up. Off metformin now so the diarrhea is gone. However now reports constipation is bothering her these days. Reports had a few episodes of rectal bleeding after she had hard stools and had to strain. However continued to have bleeding for a few more BMs after that despite not straining. Is having a few side effects of Trulicity as well including increased nausea and belching. Labs reviewed, has new anemia with iron deficiency. Does not note any melena or hematochezia, no change in weight. Reports immense fatigue which is relapsing remitting x years. Pt had PCI in January 2024 and also has factor V leidin so will need anti-thrombotic management sarah-procedure. [facility] Medical History History of colon polyps (~2009) Type II diabetes mellitus, well controlled Personal history of nicotine dependence Factor 5 Leiden mutation, heterozygous Obstructive sleep apnea on CPAP (~2008) Osteopenia (~2018) Pacemaker (~2021) History of CVA (cerebrovascular accident) (~2019) Hyperlipidemia PFO (patent foramen ovale) (~2019) HTN (hypertension) COPD (chronic obstructive pulmonary disease) Current use of anticoagulant therapy (~2019) Surgical History Hx of cystoscopy Hx of blepharoplasty History of esophagogastroduodenoscopy (EGD) History of colonoscopy History of unilateral oophorectomy History of cholecystectomy (~2000) History of bladder surgery (~1999) History of pacemaker (~2021) Family History Mother Stroke Multiple sclerosis Diabetes Father CAD (coronary artery disease) Social History Alcohol intake: never Patient Tobacco Use Status: Current everyday Tobacco user Tobacco use type: Cigarette Cigarettes Per Day: 4 Years Smoked: 40 +/- e-Cigarette/Vaping Use: Currently Using service: No Current occupational status: retired Review of Systems Const All systems reviewed & are unremarkable except as noted in HPI and below Physical Exam Vital Signs: Last Vital Signs Pulse 88 07/04/24 10:17 BP 113/48 L 07/04/24 10:17 BMI result Body Mass Index 26.7 No apparent distress Nonicteric Abdomen soft, nondistended Alert and oriented x3, normal gait Assessment & Plan Assessment & Plan (1) Fatigue: Code(s): R53.83 - Other fatigue Category: Medical (2) History of colon polyps: Onset Date: ~2009 Comment: x3 TA in 2021 Code(s): Z86.010 - Personal history of colon polyps Category: Medical (3) Iron deficiency anemia: Code(s): D50.9 - Iron deficiency anemia, unspecified Category: Medical Plan Reviewed finding of iron deficiency anemia on labs with pt. While the extent of anemia does not explain the degree of fatigue however does warrant endoscopic work up - yaron with hx of advanced adenoma in 2021. Since she had PCI in january, will book the egd/colo for after Jul to allow for 6 months of uninterrupted antiplatelet therapy after ESTRELLA. Plan: - Start PO iron supplementation with Vit C - EGD/colo to be booked AFTER jul 2024 - Pt requests miralax prep - Will need to hold plavix x 5 days prior to the procedure - Will need to hold coumadin for INR < 1.5. Will likely need a Lovenox bridge as she has factor V leiden with hx of CVA - She is also aware to hold GLP 1 RA (currently on trulicity, may switch to mounjaro) for at least 7 days prior to the procedures Follow up after procedures Medications: New polyethylene glycol 3350 (Miralax) mix in 64 oz of gatorade for colonoscopy prep 238 grams PO ONCE 238 grams 0RF ferrous sulfate Take with half cup orange juice 325 mg PO DAILY 90 tabs 0RF Coding Level of Care Code Est Pt Level 4 (21930) Diagnoses Fatigue R53.83 History of colon polyps Z86.010 Iron deficiency anemia D50.9
--- OUTSIDE RECORDS SUMMARY | 2024-07-04 10:21 | XMS_ITS | Continuity of Care Document ---
Author Organization [facility] Address [address] [facility], [address], [address] [place] [id number]- Care Team Providers Care Credit Compliance Officer Name Role Phone Garfield MCKAY, Manuel Primary Care Physician [phone] Encounter [facility] [place] Date(s): 05/31/24 - 06/30/24 [facility] [address] [facility] [address] Floor, [address] [place] [phone]- Encounter Type: Triage Allergies, Adverse Reactions, Alerts [...] 2:12:00 PM EDT, Route to Pharmacy Electronically, [facility]/pharmacy #[id number], Partial fill upon patient requestif the prescription [...] 2:12:00 PM EDT, Route to Pharmacy Electronically, [facility]/pharmacy #[id number], Partial fill upon patient requestif the prescription is for a schedule II opioid drug., 152, cm, 01/31/24 13:16:00 EDT, Height Start Date: 01/31/24 Status: Ordered Quantity: 90.0 Unit: tablet Repeat number: 4 Coenzyme Q10 200 mg oral capsule 1 capsule = 200 mg, By Mouth, Daily, for fatigue, # 30 capsule, 5 Refills, Maintenance, 06/29/24 2:21:00 PM EST, Capsule, [facility]/pharmacy #[id number], OTC if ins not approved, 152, cm, 06/29/24 13:25:00 EST, Height, 62.8, kg, 06/29/24 13:25:00 EST, Dry Weight Start Date: 06/29/24 Stop Date: 12/26/24 Status: Ordered Quantity: 30.0 Unit: capsule Repeat number: 6 enoxaparin 60 mg/0.6 mL injectable solution 6 [...] INSTR:FOR TRIGMEINAL NEURALGIA, # 360 tablet, Refills 3, Tot. Refills 3, Maintenance, 06/29/24 2:20:00 PM EST, Route to Pharmacy Electronically, [facility]/pharmacy #[id number], 152, cm, 06/29/24 13:25:00 EST, Height, 62.8, kg, 06/29/24 13:25:00 EST, Dry Weight Start Date: 06/29/24 Stop Date: 06/24/25 Status: Ordered Quantity: 360.0 Unit: tablet Repeat number: 4 oxyCODONE 5 mg oral tablet 28 each, [...] Refills, Maintenance, 05/02/24 9:42:00 AM EDT, Aerosol, [facility]/pharmacy #[id number], copd j44.9, 152, cm, 05/02/24 9:10:00 EDT, Height Start Date: 05/02/24 Stop Date: 10/29/24 Status: Ordered Quantity: 4.0 Unit: g Repeat number: 6 Trulicity Pen 1.5 mg/0.5 mL subcutaneous solution 0 Refills, Maintenance, 06/29/24 1:24:00 PM EST, Partial fill upon patient request if the prescription is for a schedule II opioid drug. Start Date: 06/29/24 Status: Ordered Repeat number: 1 Ventolin HFA 108 mcg/inh inhalation aerosol with adapter 2 puffs, Inhalation, 4 times a day, PRN NEEDED FOR WHEEZING - USE WITH SPACER CHAMBER, # 18 each, 5 Refills, Maintenance, 04/24/24 11:17:00 AM EDT, [id number], 152, cm, 01/31/24 13:16:00 EDT, Height Start [...] History Social History Type Response Tobacco Other: 1/2ppd. Sex Sex Representation Female (finding) Patient Care team information Care Team Personnel Name: Manuel Merrill MD Position: [facility] Outreach Member Role: PCP Address: [address] [place] [address] Internal Medicine [address] Telecom: Name: Tawanna Mckeon Position: S Outreach Member Role: Lifetime Consulting Physician Care Team Related Persons Name: MITCHELL SMITH Name: VICENTE SMITH Insurance Providers Guarantor name: MELVIN SMITH Health Plan Information #: 1 Payer: MEDICARE PART B OUTPT Member Number: NA Policy Number: NA Group Number: NA Health Plan Information #: 2 Payer: [facility] Member Number: NA Policy Number: NA Group Number: NA
== END 2024-07-04 11:28 | disposition home or self-care (01) ==
PROVIDERS: PCP Internal Medicine; Visit Provider Internal Medicine
DX: R53.83 Other fatigue (principal); Z86.0100 Personal history of colon polyps, unspecified; D50.9 Iron deficiency anemia, unspecified
CPT/HCPCS: 99214

== ENCOUNTER → 2024-07-04 10:16 | Outpatient (BNVA) | payer MEDICARE, MEDICAID, SELFPAY | PROVIDERS: PCP Internal Medicine; Visit Provider Internal Medicine | DX: R53.83 Other fatigue (principal); R13.10 Dysphagia, unspecified; D50.9 Iron deficiency anemia, unspecified; D68.51 Activated protein C resistance; Z86.0100 Personal history of colon polyps, unspecified | CPT/HCPCS: 99212 ==

== ENCOUNTER 2024-07-13 08:53 | Outpatient (AMB) | payer MEDICARE, MEDICAID, SELFPAY ==
[2024-07-13 09:18] LABS: Prothrombin Time Whole Bld POC 42.9 sec (11.1-13.5); ~PT, ~INR - Anti Coag Clinic 3.6 (0.9-1.1)
--- NOTE | 2024-07-13 09:29 | MHC.OFFVISCO ---
Intake Intake Visit Reasons: Anticoagulation Allergies vancomycin [VANCOMYCIN] Allergy (Intermediate, Verified 07/13/24 09:08) ITCHING/RASH metoclopramide [From Reglan] Adverse Reaction (Intermediate, Verified 07/13/24 09:08) Nausea and Vomiting Medication List - Last Reconciled 07/13/24 by Vonda Cam RN albuterol sulfate 90 mcg/actuation 2 puffs inhalation Q4H PRN albuterol sulfate 2.5 mg inhalation Q8H PRN amantadine HCl 100 mg PO DAILY amlodipine 5 mg PO DAILY atorvastatin 40 mg PO DAILY blood sugar diagnostic As directed carisoprodol (Soma) 350 mg PO TID PRN cholecalciferol (vitamin D3) 25 mcg PO DAILY clopidogrel (Plavix) 75 mg PO DAILY diclofenac sodium 1% topical ezetimibe 10 mg PO DAILY 90 days famotidine 20 mg PO BEDTIME ferrous sulfate 325 mg PO DAILY food supplemt, lactose-reduced (Boost) PO hydrocortisone 2.5% appl topical magnesium oxide 400 mg PO DAILY metoprolol succinate ER 50 mg PO DAILY mupirocin 2% topical BID ondansetron HCl 8 mg PO Q12H PRN oxcarbazepine 300 mg PO BID oxycodone 5 mg PO BEDTIME PRN polyethylene glycol 3350 (Miralax) 238 grams PO ONCE pramipexole mg PO sucralfate 1 g PO BID tiotropium-olodaterol 2.5-2.5 mcg/actuation (Stiolto Respimat) 2 puffs inhalation DAILY tirzepatide (Mounjaro) mg subcut warfarin 5 mg See Protocol PO DIRECTED Nursing Note INR: 3.6 out of therapeutic range- r/t diet over the holidays and to possible switch from trulicity to mounjaro Medications and supplements reviewed Denies any signs and symptoms of bleeding or bruising or clotting. Bleeding, bruising, clotting discussed Nutritional guidance given - greens or protein shake today Dose: decrease weekly dose to 7.5mg x 3 days/ 5mg x 4 days F/U INR: 2 weeks Patient verbalizes understanding of instructions given Anti-Coag Initial Assessment Social Hx Patient Tobacco Use Status: Current everyday Tobacco user Tobacco use type: Cigarette alcohol intake: never Coding Level of Care Code Est Patient Level 1 Diagnoses Current use of anticoagulant therapy Z79.01 Results AMB INR Fingerstick AMB INR Fingerstick 3.6 Last Edit by Vonda Cam RN on 07/13/24 09:23 MANUAL ENTRY Assessment & Plan Assessment & Plan (1) Current use of anticoagulant therapy: Onset Date: ~2019 Comment: (due to Stroke with PFO and factor 5 leiden) 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
== END 2024-07-13 09:41 | disposition home or self-care (01) ==
LOC: HO.ACS 08:53
PROVIDERS: PCP Internal Medicine; Visit Provider Internal Medicine
DX: Z79.01 Long term (current) use of anticoagulants (principal)

== ENCOUNTER → 2024-07-13 08:53 | Outpatient (BNVA) | payer MEDICARE, MEDICAID, SELFPAY | PROVIDERS: PCP Internal Medicine; Visit Provider Internal Medicine | DX: Z86.73 Personal history of transient ischemic attack (TIA), and cerebral infarction without residual deficits (principal); Z79.01 Long term (current) use of anticoagulants; Z51.81 Encounter for therapeutic drug level monitoring | CPT/HCPCS: 85610; 99211 ==

== ENCOUNTER 2024-07-26 09:06 | Outpatient (AMB) | payer MEDICARE, MEDICAID, SELFPAY ==
[2024-07-26 09:20] LABS: ~PT, ~INR - Anti Coag Clinic 2.9 (0.9-1.1)
--- NOTE | 2024-07-26 09:27 | MHC.OFFVISCO ---
Intake Intake Visit Reasons: Anticoagulation Allergies vancomycin [VANCOMYCIN] Allergy (Intermediate, Verified 07/26/24 09:12) ITCHING/RASH metoclopramide [From Reglan] Adverse Reaction (Intermediate, Verified 07/26/24 09:12) Nausea and Vomiting Medication List - Last Reconciled 07/26/24 by Catherine Bales, RN albuterol sulfate 90 mcg/actuation 2 puffs inhalation Q4H PRN albuterol sulfate 2.5 mg inhalation Q8H PRN amantadine HCl 100 mg PO DAILY amlodipine 5 mg PO DAILY atorvastatin 40 mg PO DAILY blood sugar diagnostic As directed carisoprodol (Soma) 350 mg PO TID PRN cholecalciferol (vitamin D3) 25 mcg PO DAILY clopidogrel (Plavix) 75 mg PO DAILY diclofenac sodium 1% topical ezetimibe 10 mg PO DAILY 90 days famotidine 20 mg PO BEDTIME ferrous sulfate 325 mg PO DAILY food supplemt, lactose-reduced (Boost) PO hydrocortisone 2.5% appl topical magnesium oxide 400 mg PO DAILY metoprolol succinate ER 50 mg PO DAILY mupirocin 2% topical BID ondansetron HCl 8 mg PO Q12H PRN oxcarbazepine 300 mg PO BID oxycodone 5 mg PO BEDTIME PRN polyethylene glycol 3350 (Miralax) 238 grams PO ONCE pramipexole mg PO sucralfate 1 g PO BID tiotropium-olodaterol 2.5-2.5 mcg/actuation (Stiolto Respimat) 2 puffs inhalation DAILY tirzepatide (Mounjaro) mg subcut warfarin 5 mg See Protocol PO DIRECTED Nursing Note INR: 2.9 in therapeutic range 2-3 Medications and supplements reviewed No changes in health, diet, medications, or supplements, Denies any signs and symptoms of bleeding or bruising or clotting. Bleeding, bruising, clotting discussed Nutritional guidance given Dose: 5mg X 4 days and 7.5mg X 3 days F/U INR: 2 weeks Patient verbalizes understanding of instructions given Anti-Coag Initial Assessment Social Hx Patient Tobacco Use Status: Current everyday Tobacco user Tobacco use type: Cigarette alcohol intake: never Coding Level of Care Code Est Patient Level 1 Diagnoses Current use of anticoagulant therapy Z79.01 Assessment & Plan Assessment & Plan (1) Current use of anticoagulant therapy: Onset Date: ~2019 Comment: (due to Stroke with PFO and factor 5 leiden) Code(s): Z79.01 - long-term (current) use of anticoagulants Category: Medical
== END 2024-07-26 09:30 | disposition home or self-care (01) ==
LOC: HO.ACS 09:06
PROVIDERS: PCP Internal Medicine; Visit Provider Internal Medicine
DX: Z79.01 Long term (current) use of anticoagulants (principal)

== ENCOUNTER → 2024-07-26 09:06 | Outpatient (BNVA) | payer MEDICARE, MEDICAID, SELFPAY | PROVIDERS: PCP Internal Medicine; Visit Provider Internal Medicine | DX: Z86.73 Personal history of transient ischemic attack (TIA), and cerebral infarction without residual deficits (principal); Z79.01 Long term (current) use of anticoagulants; Z51.81 Encounter for therapeutic drug level monitoring | CPT/HCPCS: 85610; 99211 ==

== ENCOUNTER 2024-08-09 08:59 | Outpatient (AMB) | payer MEDICARE, MEDICAID, SELFPAY ==
[2024-08-09 09:08] LABS: Prothrombin Time Whole Bld POC 19.4 sec (11.1-13.5); ~PT, ~INR - Anti Coag Clinic 1.6 (0.9-1.1)
--- NOTE | 2024-08-09 09:19 | MHC.OFFVISCO ---
Intake Intake Visit Reasons: Anticoagulation Allergies vancomycin [VANCOMYCIN] Allergy (Intermediate, Verified 08/09/24 09:02) ITCHING/RASH metoclopramide [From Reglan] Adverse Reaction (Intermediate, Verified 08/09/24 09:02) Nausea and Vomiting Medication List - Last Reconciled 08/09/24 by Catherine Bales, RN albuterol sulfate 90 mcg/actuation 2 puffs inhalation Q4H PRN albuterol sulfate 2.5 mg inhalation Q8H PRN amantadine HCl 100 mg PO DAILY amlodipine 5 mg PO DAILY atorvastatin 40 mg PO DAILY blood sugar diagnostic As directed carisoprodol (Soma) 350 mg PO TID PRN cholecalciferol (vitamin D3) 25 mcg PO DAILY clopidogrel (Plavix) 75 mg PO DAILY diclofenac sodium 1% topical ezetimibe 10 mg PO DAILY 90 days famotidine 20 mg PO BEDTIME ferrous sulfate 325 mg PO DAILY food supplemt, lactose-reduced (Boost) PO hydrocortisone 2.5% appl topical magnesium oxide 400 mg PO DAILY metoprolol succinate ER 50 mg PO DAILY mupirocin 2% topical BID ondansetron HCl 8 mg PO Q12H PRN oxcarbazepine 300 mg PO BID oxycodone 5 mg PO BEDTIME PRN polyethylene glycol 3350 (Miralax) 238 grams PO ONCE pramipexole mg PO sucralfate 1 g PO BID tiotropium-olodaterol 2.5-2.5 mcg/actuation (Stiolto Respimat) 2 puffs inhalation DAILY tirzepatide (Mounjaro) mg subcut warfarin 5 mg See Protocol PO DIRECTED Nursing Note IN: 1.6?out of therapeutic range 2-3 Pt states she was staying at her sister's house who is ill and pt was helping her. Pt's diet was a little off her norm which may contribute to her lower INR. Medications and supplements reviewed Patient status: well Medications or supplements: no changes Denies any signs and symptoms of bleeding or clotting or unusual bruising Bleeding, bruising, clotting discussed Nutritional guidance given: to avoid greens today Dose: increase today's dose to 7.5mg then 7.5mg tomorrow and 5mg the two days after that. Next week will start 7.5mg X 4 days and 5mg X 3 days F/U INR Date : 1 week Patient verbalizing understanding of instructions given. 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
--- OUTSIDE RECORDS SUMMARY | 2024-08-09 09:40 | XMS_ITS | Continuity of Care Document ---
Author Organization [facility] Address [address] [facility], [address] Floor, [address] [place] [id number]- Care Team Providers Care Reporting Coordinator Name Role Phone Garfield MCKAY, Manuel Primary Care Physician Encounter [facility] [place] Date(s): 06/29/24 - 07/29/24 [facility] [address], [address] [place] [id number]- Attending Physician: AdmMakism goldberg Admitting Physician: AdmtrMaksim Referring Physician: Admtr, ArEfren Encounter Type: Triage Allergies, Adverse Reactions, Alerts [...] 2:12:00 PM EDT, Route to Pharmacy Electronically, [facility]/pharmacy #[id number], Partial fill upon patient requestif the prescription [...] 2:12:00 PM EDT, Route to Pharmacy Electronically, [facility]/pharmacy #[id number], Partial fill upon patient requestif the prescription is for a schedule II opioid drug., 152, cm, 01/31/24 13:16:00 EDT, Height Start Date: 01/31/24 Status: Ordered Quantity: 90.0 Unit: tablet Repeat number: 4 Coenzyme Q10 200 mg oral capsule 1 capsule = 200 mg, By Mouth, Daily, for fatigue, # 30 capsule, 5 Refills, Maintenance, 06/29/24 2:21:00 PM EST, Capsule, [facility]/pharmacy #[id number], OTC if ins not approved, 152, [...] 2:20:00 PM EST, Route to Pharmacy Electronically, [facility]/pharmacy #[id number], 152, cm, 06/29/24 13:25:00 EST, Height, [...] Refills, Maintenance, 05/02/24 9:42:00 AM EDT, Aerosol, [facility]/pharmacy #[id number], copd j44.9, 152, cm, 05/02/24 9:10:00 [...] 5 Refills, Maintenance, 04/24/24 11:17:00 AM EDT, [id number], 152, cm, 01/31/24 13:16:00 EDT, Height Start [...] DAILY DIRECTED BY [facility]., 0 Refills, 248:39:00 AM EDT, Partial fill upon patient request [...] Team Personnel Name: Manuel Merrill MD Position: [facility] Outreach Member Role: PCP Address: [address] [place] [address] Internal Medicine [address] Telecom: Name: Tawanna Mckeon Position: S Outreach Member Role: Lifetime Consulting Physician Care Team Related Persons Name: MITCHELL SMITH Name: VICENTE SMITH Insurance Providers Guarantor name: MELVIN SMITH Health Plan Information #: 1 Payer: MEDICARE PART B OUTPT Member Number: NA Policy Number: NA Group Number: NA Health Plan Information #: 2 Payer: [facility] Member Number: NA Policy Number: NA Group Number: NA
== END 2024-08-09 09:57 | disposition home or self-care (01) ==
LOC: HO.ACS 08:59
PROVIDERS: PCP Internal Medicine; Visit Provider Internal Medicine
DX: Z79.01 Long term (current) use of anticoagulants (principal)

== ENCOUNTER → 2024-08-09 08:59 | Outpatient (BNVA) | payer MEDICARE, MEDICAID, SELFPAY | PROVIDERS: PCP Internal Medicine; Visit Provider Internal Medicine | DX: Z86.73 Personal history of transient ischemic attack (TIA), and cerebral infarction without residual deficits (principal); Z79.01 Long term (current) use of anticoagulants; Z51.81 Encounter for therapeutic drug level monitoring | CPT/HCPCS: 85610; 99211 ==

== ENCOUNTER 2024-08-16 09:03 | Outpatient (AMB) | payer MEDICARE, MEDICAID, SELFPAY ==
[2024-08-16 09:26] LABS: Prothrombin Time Whole Bld POC 23.5 sec (11.1-13.5)
--- NOTE | 2024-08-16 09:37 | MHC.OFFVISCO ---
Intake Intake Visit Reasons: Anticoagulation Allergies vancomycin [VANCOMYCIN] Allergy (Intermediate, Verified 08/16/24 09:17) ITCHING/RASH metoclopramide [From Reglan] Adverse Reaction (Intermediate, Verified 08/16/24 09:17) Nausea and Vomiting Medication List - Last Reconciled 08/16/24 by Vonda Cam RN albuterol sulfate 90 mcg/actuation 2 puffs inhalation Q4H PRN albuterol sulfate 2.5 mg inhalation Q8H PRN amantadine HCl 100 mg PO DAILY amlodipine 5 mg PO DAILY atorvastatin 40 mg PO DAILY blood sugar diagnostic As directed carisoprodol (Soma) 350 mg PO TID PRN cholecalciferol (vitamin D3) 25 mcg PO DAILY clopidogrel (Plavix) 75 mg PO DAILY diclofenac sodium 1% topical ezetimibe 10 mg PO DAILY 90 days famotidine 20 mg PO BEDTIME ferrous sulfate 325 mg PO DAILY food supplemt, lactose-reduced (Boost) PO hydrocortisone 2.5% appl topical magnesium oxide 400 mg PO DAILY metoprolol succinate ER 50 mg PO DAILY mupirocin 2% topical BID ondansetron HCl 8 mg PO Q12H PRN oxcarbazepine 300 mg PO BID oxycodone 5 mg PO BEDTIME PRN polyethylene glycol 3350 (Miralax) 238 grams PO ONCE pramipexole mg PO sucralfate 1 g PO BID tiotropium-olodaterol 2.5-2.5 mcg/actuation (Stiolto Respimat) 2 puffs inhalation DAILY tirzepatide (Mounjaro) mg subcut umeclidinium-vilanterol 62.5-25 mcg/actuation (Anoro Ellipta) inhalation DAILY warfarin 5 mg See Protocol PO DIRECTED Nursing Note INR: 2.0 in therapeutic range Medications and supplements reviewed Pt missed dose yesterday (5mg) and took 7.5mg this am instead of 5mg Denies any signs and symptoms of bleeding or bruising or clotting. Bleeding, bruising, clotting discussed Nutritional guidance given - do not take boost today due to missed dose yesterday Dose: keep same dose for now 5mg sun tue thur / 7.5mg x 4 days F/U INR: 1 week Patient verbalizes understanding of instructions given Anti-Coag Initial Assessment Social Hx Patient Tobacco Use Status: Current everyday Tobacco user Tobacco use type: Cigarette alcohol intake: never Coding Level of Care Code Est Patient Level 1 Diagnoses Current use of anticoagulant therapy Z79.01 Results AMB INR Fingerstick AMB INR Fingerstick 2.0 Last Edit by Vonda Cam RN on 08/16/24 09:29 manual entry Assessment & Plan Assessment & Plan (1) Current use of anticoagulant therapy: Onset Date: ~2019 Comment: (due to Stroke with PFO and factor 5 leiden) Code(s): Z79.01 - detention (current) use of anticoagulants Category: Medical
== END 2024-08-16 09:41 | disposition home or self-care (01) ==
LOC: HO.ACS 09:03
PROVIDERS: PCP Internal Medicine; Visit Provider Internal Medicine
DX: Z79.01 Long term (current) use of anticoagulants (principal)

== ENCOUNTER → 2024-08-27 23:59 | Outpatient (BNV) | payer MEDICARE, MEDICAID, SELFPAY ==
--- NOTE | 2024-08-30 14:10 | MHC.OFFVIS ---
Intake Visit Reasons: Remote device check- [employer] Allergies vancomycin [VANCOMYCIN] Allergy (Intermediate, Verified 08/28/24 09:11) ITCHING/RASH metoclopramide [From Reglan] Adverse Reaction (Intermediate, Verified 08/28/24 09:11) Nausea and Vomiting PFSH Medical History History of colon polyps (~2009) Type II diabetes mellitus, well controlled Personal history of nicotine dependence Factor 5 Leiden mutation, heterozygous Obstructive sleep apnea on CPAP (~2008) Osteopenia (~2018) Pacemaker (~2021) History of CVA (cerebrovascular accident) (~2019) Hyperlipidemia PFO (patent foramen ovale) (~2019) HTN (hypertension) COPD (chronic obstructive pulmonary disease) Current use of anticoagulant therapy (~2019) Surgical History Hx of cystoscopy Hx of blepharoplasty History of esophagogastroduodenoscopy (EGD) History of colonoscopy History of unilateral oophorectomy History of cholecystectomy (~2000) History of bladder surgery (~1999) History of pacemaker (~2021) Family History Mother Stroke Multiple sclerosis Diabetes Father CAD (coronary artery disease) Social History Alcohol intake: never Patient Tobacco Use Status: Current everyday Tobacco user Tobacco use type: Cigarette Cigarettes Per Day: 4 Years Smoked: 40 +/- e-Cigarette/Vaping Use: Currently Using service: No Current occupational status: retired Office Procedures Cardiac Device Check Cardiac Device Check Details: Remote pacemaker report generated 08/27/2024. Pacemaker function is adequate [id number] Cardiac Device Interrogation, pacemaker Procedure code (CPT) selection complete Assessment & Plan Assessment & Plan (1) Cardiac pacemaker in situ: Code(s): Z95.0 - Presence of cardiac pacemaker Category: Medical Plan: See above Coding Level of Care Code Procedure Only Diagnoses Cardiac pacemaker in situ Z95.0 CPT Codes Cardiac Device Check - Cardiac Device 12: [id number] Cardiac Device Interrogation, pacemaker ([id number])
== END ==
PROVIDERS: PCP Internal Medicine; Visit Provider Internal Medicine Cardiovascular Disease
DX: Z45.018 Encounter for adjustment and management of other part of cardiac pacemaker (principal)
CPT/HCPCS: 93294

== ENCOUNTER 2024-08-28 09:03 | Outpatient (AMB) | payer MEDICARE, MEDICAID, SELFPAY ==
[2024-08-28 09:22] LABS: Prothrombin Time Whole Bld POC 30.8 sec (11.1-13.5); ~PT, ~INR - Anti Coag Clinic 2.6 (0.9-1.1)
--- NOTE | 2024-08-28 09:25 | MHC.OFFVISCO ---
Intake Intake Visit Reasons: Anticoagulation Allergies vancomycin [VANCOMYCIN] Allergy (Intermediate, Verified 08/28/24 09:11) ITCHING/RASH metoclopramide [From Reglan] Adverse Reaction (Intermediate, Verified 08/28/24 09:11) Nausea and Vomiting Medication List - Last Reconciled 08/28/24 by Catherine Story RN albuterol sulfate 90 mcg/actuation 2 puffs inhalation Q4H PRN albuterol sulfate 2.5 mg inhalation Q8H PRN amantadine HCl 100 mg PO DAILY amlodipine 5 mg PO DAILY atorvastatin 40 mg PO DAILY blood sugar diagnostic As directed carisoprodol (Soma) 350 mg PO TID PRN cholecalciferol (vitamin D3) 25 mcg PO DAILY clopidogrel (Plavix) 75 mg PO DAILY diclofenac sodium 1% topical ezetimibe 10 mg PO DAILY 90 days famotidine 20 mg PO BEDTIME ferrous sulfate 325 mg PO DAILY food supplemt, lactose-reduced (Boost) PO hydrocortisone 2.5% appl topical magnesium oxide 400 mg PO DAILY metoprolol succinate ER 50 mg PO DAILY ondansetron HCl 8 mg PO Q12H PRN oxcarbazepine 300 mg PO BID oxycodone 5 mg PO BEDTIME PRN pramipexole mg PO sucralfate 1 g PO BID tiotropium-olodaterol 2.5-2.5 mcg/actuation (Stiolto Respimat) 2 puffs inhalation DAILY tirzepatide (Mounjaro) mg subcut umeclidinium-vilanterol 62.5-25 mcg/actuation (Anoro Ellipta) inhalation DAILY warfarin 5 mg See Protocol PO DIRECTED Nursing Note Amb to ACS feeling well Medications and supplements reviewed No changes in health, diet, medications, or supplements, Denies any signs and symptoms of bleeding, bruising, or clotting. Bleeding, bruising, clotting discussed INR: 2.6 in therapeutic range Dose: continue usual 5mg x 3 days and 7.5mg x 4 days balance greens and reds in diet, be consistent F/U INR: 2 weeks Patient verbalizes understanding of instructions given Anti-Coag Initial Assessment Social Hx Patient Tobacco Use Status: Current everyday Tobacco user Tobacco use type: Cigarette alcohol intake: never Coding Level of Care Code Est Patient Level 1 Diagnoses Current use of anticoagulant therapy Z79.01 Time Spent (min) 15 Assessment & Plan Assessment & Plan (1) Current use of anticoagulant therapy: Onset Date: ~2019 Comment: (due to Stroke with PFO and factor 5 leiden) 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
== END 2024-08-28 09:33 | disposition home or self-care (01) ==
LOC: HO.ACS 09:03
PROVIDERS: PCP Internal Medicine; Visit Provider Internal Medicine
DX: Z79.01 Long term (current) use of anticoagulants (principal)

== ENCOUNTER → 2024-08-28 09:03 | Outpatient (BNVA) | payer MEDICARE, MEDICAID, SELFPAY | PROVIDERS: PCP Internal Medicine; Visit Provider Internal Medicine | DX: Z86.73 Personal history of transient ischemic attack (TIA), and cerebral infarction without residual deficits (principal); Z79.01 Long term (current) use of anticoagulants; Z51.81 Encounter for therapeutic drug level monitoring | CPT/HCPCS: 85610; 99211 ==

== ENCOUNTER 2024-09-10 13:12 | Outpatient (AMB) | payer MEDICARE, MEDICAID, SELFPAY ==
[2024-09-10 13:49] LABS: Prothrombin Time Whole Bld POC 36.3 sec (11.1-13.5)
--- NOTE | 2024-09-10 13:57 | MHC.OFFVISCO ---
Intake Intake Visit Reasons: Anticoagulation Allergies vancomycin [VANCOMYCIN] Allergy (Intermediate, Verified 08/28/24 09:11) ITCHING/RASH metoclopramide [From Reglan] Adverse Reaction (Intermediate, Verified 08/28/24 09:11) Nausea and Vomiting Nursing Note INR: 3.0 in therapeutic range Medications and supplements reviewed To have colonoscopy and upper endo 09/27/2024 - she will notify [facility] of the instructions she receives. Denies any signs and symptoms of bleeding or bruising or clotting. Bleeding, bruising, clotting discussed Nutritional guidance given - have and extra green this week and or another boost Dose: 5mg x 3 days/ 7.5mg x 4 days F/U INR: 09/21/2024 prior 09/27/2024 upper endo and colonoscopy Patient verbalizes understanding of instructions given with read back call placed to Dr Merrill regarding upper endo and colonsocopy - msg left for triage nurse to convru questions regarding warfarin hold, lovenox bridge , plavix hold and monjaro hold. 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
== END 2024-09-10 14:18 | disposition home or self-care (01) ==
LOC: HO.ACS 13:12
PROVIDERS: PCP Internal Medicine; Visit Provider Internal Medicine
DX: Z79.01 Long term (current) use of anticoagulants (principal)

== ENCOUNTER → 2024-09-10 13:12 | Outpatient (BNVA) | payer MEDICARE, MEDICAID, SELFPAY | PROVIDERS: PCP Internal Medicine; Visit Provider Internal Medicine | DX: Z86.73 Personal history of transient ischemic attack (TIA), and cerebral infarction without residual deficits (principal); Z79.01 Long term (current) use of anticoagulants; Z51.81 Encounter for therapeutic drug level monitoring | CPT/HCPCS: 85610; 99211 ==

== ENCOUNTER 2024-09-13 06:17 | Outpatient (REF) | payer MEDICARE, MEDICAID, SELFPAY ==
[2024-09-13 06:27] LABS: MANUAL DIFF FLAG NO
[2024-09-13 07:12] LABS: Basophils Percent Auto 0.3 % (0-2); Eosinophils Absolute Auto 0.2 X10*3/uL (0.0-0.4); Eosinophils Percent Auto 1.8 % (0-4); Hematocrit 40.6 % (37.0-47.0); Hemoglobin 13.6 g/dl (12.0-16.0); Imm Gran Abs Auto 0.03 X10*3/uL (0.00-0.03); Imm Gran Pct Auto 0.3 % (0.0-0.4); Lymphocytes Absolute Auto 3.6 X10*3/uL (1.2-4.9); Lymphocytes Percent Auto 38.4 % (20-40); Mean Corpuscular HGB Conc 33.5 g/dl (31.0-35.0); Mean Corpuscular Hemoglobin 29.6 pg (27.0-33.0); Mean Corpuscular Volume 88.5 fL (80.0-98.0); Mean Platelet Volume 9.1 fL (9.4-12.3); Monocytes Percent Auto 10.6 % (2-11); Neutrophils Absolute Auto 4.6 x10*3/uL (2.0-8.3); Neutrophils Percent Auto 48.6 % (45-73); Platelet Count 318 X10*3/uL (160-400); Red Blood Count 4.59 X10*6/uL (4.20-5.50); Red Cell Distribution Width 16.1 % (11.0-16.0); White Blood Count 9.4 X10*3/uL (4.8-10.8)
[2024-09-13 07:26] LABS: Estimated Average Glucose 143 mg/dL; Hemoglobin A1c % 6.6 % (<6.0)
[2024-09-13 07:40] LABS: Anion Gap 13 (12-20); Blood Urea Nitrogen 15 mg/dL (9-16); C Reactive Protein 0.18 mg/dL (< or = 0.50); Calcium 9.4 mg/dL (8.4-10.2); Carbon Dioxide 25 mmol/L (22-29); Chloride 108 mmol/L (96-108); Estimated Glomerular Filt Rate > 60; Glucose Random 186 mg/dL (60-115); Iron 66 mcg/dL (30-160); Percent Iron Saturation 23 % (15-50); Potassium 4.2 mmol/L (3.3-5.1); Sodium 142 mmol/L (135-145); Total Iron Binding Capacity 287 mcg/dL (228-428); Unsaturated Iron Binding 221 ug/dL
[2024-09-13 07:50] LABS: Erythrocyte Sedimentation Rate 31 MM/HR (0-20)
[2024-09-13 07:57] LABS: Ferritin 32 ng/mL (10-250)
== END 2024-09-13 06:18 | disposition home or self-care (01) ==
LOC: HO.LAB 06:17
PROVIDERS: PCP Internal Medicine; Visit Provider Internal Medicine
DX: I10 Essential (primary) hypertension (principal); R70.0 Elevated erythrocyte sedimentation rate; D50.9 Iron deficiency anemia, unspecified; E11.9 Type 2 diabetes mellitus without complications
CPT/HCPCS: 36415; 80048; 82728; 83036; 83540; 85025; 85652; 86140

== ENCOUNTER 2024-09-24 08:56 | Outpatient (AMB) | payer MEDICARE, MEDICAID, SELFPAY ==
[2024-09-24 09:15] LABS: Prothrombin Time Whole Bld POC 44.9 sec (11.1-13.5); ~PT, ~INR - Anti Coag Clinic 3.7 (0.9-1.1)
--- NOTE | 2024-09-24 09:18 | MHC.OFFVISCO ---
Intake Intake Visit Reasons: Anticoagulation Allergies vancomycin [VANCOMYCIN] Allergy (Intermediate, Verified 09/24/24 09:02) ITCHING/RASH metoclopramide [From Reglan] Adverse Reaction (Intermediate, Verified 09/24/24 09:02) Nausea and Vomiting Medication List - Last Reconciled 09/24/24 by Catherine Bales, RN albuterol sulfate 90 mcg/actuation 2 puffs inhalation Q4H PRN albuterol sulfate 2.5 mg inhalation Q8H PRN amantadine HCl 100 mg PO DAILY amlodipine 5 mg PO DAILY atorvastatin 40 mg PO DAILY blood sugar diagnostic As directed carisoprodol (Soma) 350 mg PO TID PRN cholecalciferol (vitamin D3) 25 mcg PO DAILY clopidogrel (Plavix) 75 mg PO DAILY diclofenac sodium 1% topical ezetimibe 10 mg PO DAILY 90 days famotidine 20 mg PO BEDTIME ferrous sulfate 325 mg PO DAILY food supplemt, lactose-reduced (Boost) PO hydrocortisone 2.5% appl topical magnesium oxide 400 mg PO DAILY metoprolol succinate ER 50 mg PO DAILY ondansetron HCl 8 mg PO Q12H PRN oxcarbazepine 300 mg PO BID oxycodone 5 mg PO BEDTIME PRN pramipexole mg PO sucralfate 1 g PO BID tiotropium-olodaterol 2.5-2.5 mcg/actuation (Stiolto Respimat) 2 puffs inhalation DAILY tirzepatide (Mounjaro) mg subcut umeclidinium-vilanterol 62.5-25 mcg/actuation (Anoro Ellipta) inhalation DAILY warfarin 5 mg See Protocol PO DIRECTED Nursing Note INR: 3.7 out of therapeutic range of 2-3 Pt is not sure why the INR is high. There are no changes. Medications and supplements reviewed No changes in health, diet, medications, or supplements, Denies any signs and symptoms of bleeding or bruising or clotting. Bleeding, bruising, clotting discussed Nutritional guidance given to have a serving of greens today Dose: decrease today's dose from 7.5mg to 2.5mg then resume usual dose of 7.5mg X 4 days and 5mg X 3 days (Sun, Tues & Thurs) F/U INR: 1 week Patient verbalizes understanding of instructions given Anti-Coag Initial Assessment Social Hx Patient Tobacco Use Status: Current everyday Tobacco user Tobacco use type: Cigarette alcohol intake: never Coding Level of Care Code Est Patient Level 1 Diagnoses Current use of anticoagulant therapy Z79.01 Results AMB INR Fingerstick AMB INR Fingerstick 3.7 Last Edit by Catherine Bales RN on 09/24/24 09:09 interface delay Assessment & Plan Assessment & Plan (1) Current use of anticoagulant therapy: Onset Date: ~2019 Comment: (due to Stroke with PFO and factor 5 leiden) 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
== END 2024-09-24 09:21 | disposition home or self-care (01) ==
LOC: HO.ACS 08:56
PROVIDERS: PCP Internal Medicine; Visit Provider Internal Medicine
DX: Z79.01 Long term (current) use of anticoagulants (principal)

== ENCOUNTER → 2024-09-24 08:56 | Outpatient (BNVA) | payer MEDICARE, MEDICAID, SELFPAY | PROVIDERS: PCP Internal Medicine; Visit Provider Internal Medicine | DX: Z86.73 Personal history of transient ischemic attack (TIA), and cerebral infarction without residual deficits (principal); Z79.01 Long term (current) use of anticoagulants; Z51.81 Encounter for therapeutic drug level monitoring | CPT/HCPCS: 85610; 99211 ==

== ENCOUNTER 2024-10-02 09:20 | Outpatient (AMB) | payer MEDICARE, MEDICAID, SELFPAY ==
--- NOTE | 2024-10-02 09:38 | MHC.OFFVISCO ---
Intake Intake Visit Reasons: Anticoagulation Allergies vancomycin [VANCOMYCIN] Allergy (Intermediate, Verified 10/02/24 09:34) ITCHING/RASH metoclopramide [From Reglan] Adverse Reaction (Intermediate, Verified 10/02/24 09:34) Nausea and Vomiting Medication List - Last Reconciled 10/02/24 by Anyn Orta RN albuterol sulfate 90 mcg/actuation 2 puffs inhalation Q4H PRN albuterol sulfate 2.5 mg inhalation Q8H PRN amantadine HCl 100 mg PO DAILY amlodipine 5 mg PO DAILY atorvastatin 40 mg PO DAILY blood sugar diagnostic As directed carisoprodol (Soma) 350 mg PO TID PRN cholecalciferol (vitamin D3) 25 mcg PO DAILY clopidogrel (Plavix) 75 mg PO DAILY diclofenac sodium 1% topical ezetimibe 10 mg PO DAILY 90 days famotidine 20 mg PO BEDTIME ferrous sulfate 325 mg PO DAILY food supplemt, lactose-reduced (Boost) PO hydrocortisone 2.5% appl topical magnesium oxide 400 mg PO DAILY metoprolol succinate ER 50 mg PO DAILY ondansetron HCl 8 mg PO Q12H PRN oxcarbazepine 300 mg PO BID oxycodone 5 mg PO BEDTIME PRN pramipexole mg PO sucralfate 1 g PO BID tiotropium-olodaterol 2.5-2.5 mcg/actuation (Stiolto Respimat) 2 puffs inhalation DAILY tirzepatide (Mounjaro) mg subcut umeclidinium-vilanterol 62.5-25 mcg/actuation (Anoro Ellipta) inhalation DAILY warfarin 5 mg See Protocol PO DIRECTED Nursing Note INR: 3.0- in therapeutic range of 2-3 Medications and supplements reviewed mounjaro increased to 10mg- does affect inr per micromedex No changes in health, diet, medications, or supplements, Denies any signs and symptoms of bleeding or bruising or clotting. Bleeding, bruising, clotting discussed Nutritional guidance given - eat a green today pt decreased appetite/c.o nausea- sees GI Dose: cont same 5mg x 3, 7.5mg x 4 F/U INR: 1 week Patient verbalizes understanding of instructions given Anti-Coag Initial Assessment Social Hx Patient Tobacco Use Status: Current everyday Tobacco user Tobacco use type: Cigarette alcohol intake: never Coding Level of Care Code Est Patient Level 1 Diagnoses Current use of anticoagulant therapy Z79.01 Assessment & Plan Assessment & Plan (1) Current use of anticoagulant therapy: Onset Date: ~2019 Comment: (due to Stroke with PFO and factor 5 leiden) Code(s): Z79.01 - roasterman (current) use of anticoagulants Category: Medical
[2024-10-02 09:39] LABS: Prothrombin Time Whole Bld POC 35.4 sec (11.1-13.5)
== END 2024-10-02 09:53 | disposition home or self-care (01) ==
LOC: HO.ACS 09:20
PROVIDERS: PCP Internal Medicine; Visit Provider Internal Medicine
DX: Z79.01 Long term (current) use of anticoagulants (principal)

== ENCOUNTER → 2024-10-02 09:20 | Outpatient (BNVA) | payer MEDICARE, MEDICAID, SELFPAY | PROVIDERS: PCP Internal Medicine; Visit Provider Internal Medicine | DX: Z86.73 Personal history of transient ischemic attack (TIA), and cerebral infarction without residual deficits (principal); Z79.01 Long term (current) use of anticoagulants; Z51.81 Encounter for therapeutic drug level monitoring | CPT/HCPCS: 85610; 99211 ==

== ENCOUNTER 2024-10-09 08:57 | Outpatient (AMB) | payer MEDICARE, MEDICAID, SELFPAY ==
--- NOTE | 2024-10-09 09:40 | MHC.OFFVISCO ---
Intake Intake Visit Reasons: Anticoagulation Allergies vancomycin [VANCOMYCIN] Allergy (Intermediate, Verified 10/09/24 09:08) ITCHING/RASH metoclopramide [From Reglan] Adverse Reaction (Intermediate, Verified 10/09/24 09:08) Nausea and Vomiting Medication List - Last Reconciled 10/09/24 by Vonda Cam RN albuterol sulfate 90 mcg/actuation 2 puffs inhalation Q4H PRN albuterol sulfate 2.5 mg inhalation Q8H PRN amlodipine 5 mg PO DAILY atorvastatin 40 mg PO DAILY blood sugar diagnostic As directed carisoprodol (Soma) 350 mg PO TID PRN cholecalciferol (vitamin D3) 25 mcg PO DAILY clopidogrel (Plavix) 75 mg PO DAILY diclofenac sodium 1% topical ezetimibe 10 mg PO DAILY famotidine 20 mg PO BEDTIME ferrous sulfate 325 mg PO DAILY food supplemt, lactose-reduced (Boost) PO hydrocortisone 2.5% appl topical magnesium oxide 400 mg PO DAILY metoprolol succinate ER 50 mg PO DAILY ondansetron HCl 8 mg PO Q12H PRN oxcarbazepine 300 mg PO BID oxycodone 5 mg PO BEDTIME PRN pramipexole mg PO sucralfate 1 g PO BID tirzepatide (Mounjaro) mg subcut umeclidinium-vilanterol 62.5-25 mcg/actuation (Anoro Ellipta) inhalation DAILY warfarin 5 mg See Protocol PO DIRECTED Nursing Note INR 1.8 out of therapeutic range Medications and supplements reviewed Patient status: May have had more greens than usual with cornbeef and cabbage last week, newly dx of possible lung Cancer-had several nodules to have pet scan 10/26 and bx 10/27 - will know warfarin hold and possible lovenox bridge instructions this week Medications or supplements: no new RX at this time Diet: same Denies any signs and symptoms of bleeding or clotting or unusual bruising Bleeding, bruising, clotting discussed Nutritional guidance given: cont to eat a mix of fruits and vegetables that you enjoy and tolerate- and your weekly boost Dose: booster dose 7.5mg x 5 days this week then resume usual dose 5mg x 3 days/ 7.5mg x 4 days F/U INR Date : 1 week ?? Patient verbalizing understanding of instructions given. Anti-Coag Initial Assessment Social Hx Patient Tobacco Use Status: Current everyday Tobacco user Tobacco use type: Cigarette alcohol intake: never Coding Level of Care Code Est Patient Level 1 Diagnoses Current use of anticoagulant therapy Z79.01 Results AMB INR Fingerstick AMB INR Fingerstick 1.8 Last Edit by Vonda Cam RN on 10/09/24 09:31 NO INTERFACING WORKING Assessment & Plan Assessment & Plan (1) Current use of anticoagulant therapy: Onset Date: ~2019 Comment: (due to Stroke with PFO and factor 5 leiden) Code(s): Z79.01 - snf (current) use of anticoagulants Category: Medical Medications: New cyanocobalamin (vitamin B-12) PO
[2024-10-09 09:42] LABS: Prothrombin Time Whole Bld POC 21.4 sec (11.1-13.5); ~PT, ~INR - Anti Coag Clinic 1.8 (0.9-1.1)
== END 2024-10-09 09:45 | disposition home or self-care (01) ==
LOC: HO.ACS 08:57
PROVIDERS: PCP Internal Medicine; Visit Provider Internal Medicine Medical Oncology
DX: Z79.01 Long term (current) use of anticoagulants (principal)

== ENCOUNTER → 2024-10-09 08:57 | Outpatient (BNVA) | payer MEDICARE, MEDICAID, SELFPAY | PROVIDERS: PCP Internal Medicine; Visit Provider Internal Medicine Medical Oncology | DX: Z86.73 Personal history of transient ischemic attack (TIA), and cerebral infarction without residual deficits (principal); Z51.81 Encounter for therapeutic drug level monitoring; Z79.01 Long term (current) use of anticoagulants | CPT/HCPCS: 85610; 99211 ==

== ENCOUNTER 2024-10-12 15:06 | Outpatient (AMB) | payer MEDICARE, MEDICAID, SELFPAY ==
--- NOTE | 2024-10-12 15:12 | A.OFFVIS_ITS ---
Vital Signs 10/12/24 15:22 Height 5 ft Weight 131 lb BMI 25.6 BP 124/56 L Blood Pressure Location Rt brachial Position Sitting Pulse 88 Pulse Source Pulse Oximeter Pulse Oximetry (%) 96 Oxygen Delivery Method Room Air Intake Visit Reasons: pt follow up request Intake Note: ESTABLISHED PATIENT for mgmt of GERD, chronic abd pain and nausea. Chief Complaint; C/O chronic nausea, dysphagia with difference in presentation. Pt reports that the difficulty swallowing seems to be higher up towards the back of her oral cavity than it was previously. Pt still denies any heartburn / reflux. 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 Initial visit 05/03/22: Patient states that for the past 1 year, she has had tremendous fatigue, to the point where there are some days when she does not even have the energy to get out of bed. For the past 2-3 months, she has also been noticing increased bloating, early satiety, decreased appetite and nausea. Reports increased nausea and burping. She has lost around 15 lb during this time. This is also associated with loose watery diarrhea with urgency. Triggered by food intake. Nighttime symptoms present. At an average, has 5-6 liquidy bowel movements which are nonbloody. She thinks she may have had 1-2 black bowel movements last month. Most recent endoscopy was a colonoscopy by Dr. Casey 5-6 years ago per her report. Was told she had polyps and will be due for repeat in 5 years. Of note, previous endoscopy notes by Dr. Echavarria also mentions family history, but patient denies any family history of colon cancer in first-degree relatives. Sister has colon polyps. Of note, she also brings up chronic complaint of dysphagia. She has had this for many years. Describes it as a sensation of food getting stuck in middle of her chest causing immense pain and nausea. Previous workup as per report has included barium study, upper endoscopy, motility study. All this was done more than 5 years ago and [facility]. She was told she possibly has esophageal spasm , but is not on any treatment. Patient was recently seen in the emergency room in January for fevers and left lower quadrant pain. CT scan was done that was read with stomach wall thickening, panc tail calcifications and L sided colitis. EGD/Colonoscopy 05/2022: * Grade A esophagitis * Esophageal spasms * Empiric Savary dilation to 20 mm? * Gastritis (biopsy) * Normal duodenum * Normal colon and terminal ileum mucosa * Total of 4 polyps removed from ascending, transverse colon and rectum. * Diverticulosis * External and internal hemorrhoids Path: A. Stomach, random, biopsy:? Oxyntic mucosa within normal limits; no Helicobacter organisms seen. B.? Colon, transverse, polypectomies (2):? Tubular adenomata; negative for high- grade dysplasia or carcinoma. C.? Colon, ascending, polypectomy:? Tubular adenoma; negative for high-grade dysplasia or carcinoma. D.? Rectum, polypectomy:? Hyperplastic mucosal polyp. 06/18/22: While the nausea, early satiety and weight loss seems to have stabilized after starting omeprazole, she continues to report intermittent sensation food getting stuck in her mid chest. Yesterday morning, also had severe episode of heartburn with regurgitation. Had a barium swallow yesterday, which has not been read yet. Reviewed medication use, has been taking omeprazole with meal, not before. Also continues to smoke. Records from [facility] [place] re esophageal motility pending. 09/01/22: Motility study reviewed. Normal motility. Patient continues to complain of significant nausea and pain in her chest that radiates to her back. Associated with nausea but no vomiting or regurgitation. Nausea improves with food intake. Has had some more weight loss, although not to the same degree as before. This was also discussed with the patient over the phone last week, and a CT angio abdomen has already been ordered to rule out chronic mesenteric ischemia, she does have significant peripheral vascular disease (sees Dr. Venegas at [facility]). Labs reviewed, was noted to have elevated ESR January 2022. Reports has an appointment with the appraiser timber. Patient is quite frustrated that she has daily fatigue and very low energy to do anything. Continues to have sensation of difficulty swallowing and sensation of food getting stuck along with nausea without any unifying diagnosis. Also reports joint stiffness all over her body specially in the morning. Sometimes, even getting up the stairs is a huge task. 05/23/23: Reports had not followed up as had been feeling quite well. Abd discomfort and nausea had resolved. She had also gained her weight back. However the past few weeks feels that she now has a gnawing pain in the epigastric region assoc with nausea. Notices discomfort is worse when she is hungry. A week ago also noticed a different odor to her stool for a couple of days, but did not remember to actually look for the color of the stool. Continues to smoke - almost 4-5 cigs a day but trying to quit. No NSAIDs. 10/04/23: * Normal esophagus (dilation) * Normal stomach (biopsy) * Normal duodenum Diagnosis Stomach, biopsy: Antral-type and oxyntic mucosa with mild chronic inactive inflammation; no Helicobacter organisms seen. 10/19/23: Reports improvement in swallowing since empiric dilation. Nausea better as well. Cont to report postprandial discomfort and bloating with feeling of fullness. Patient also recently seen by Cardiology for symptoms of lightheadedness and atypical chest pain. Scheduled for a perfusion scan. 03/07/24: Here for follow up. In the meantime, had cardiac cath with revascularization of RCA (Dr Lanza, [facility]). Also reports experienced gnawing abd pain with nausea for which she had called the office. Carafate rxed by Dr German. Carafate helped a bit. Also reports loose BM immediately after taking a metformin dose. Main issue is remains fatigue, stays in bed most of the day. PRev have discussed rheum evaluation with pt yaron for ? PMR based on her sx distribution and elevated ESR but has not been seen recently. Pt also with osteopenia on DEXA. 07/04/24: Pt here for routine follow up. Off metformin now so the diarrhea is gone. However now reports constipation is bothering her these days. Reports had a few episodes of rectal bleeding after she had hard stools and had to strain. However continued to have bleeding for a few more BMs after that despite not straining. Is having a few side effects of Trulicity as well including increased nausea and belching. Labs reviewed, has new anemia with iron deficiency. Does not note any melena or hematochezia, no change in weight. Reports immense fatigue which is relapsing remitting x years. Pt had PCI in January 2024 and also has factor V leidin so will need anti- thrombotic management sarah-procedure. 10/12/24: Pt here for follow up. EGD/colo had originally booked for earlier this month but had to be pushed out to later due to recommendation to cont DAPT x 12 months at least. In the meantime, pt had a new suspicious lung lesion measuring 1.[address] up on [address] chest 09/2024. Its a bit confusing if its in LLL or RLL lobe based on the detailed CT report. Pt undergoing PET scan next month followed by bronch. Pt unfortunately continues to smoke though does note Mounjaro has reduced cravings. Pt from GI standpoint is doing well. Anemia responsive to iron supplementation. Main CC is sour brash first thing in the morning which get better after she takes famotidine in the morning. Also takes sucralfate PRN. PFSH Medical History History of colon polyps (~2009) Type II diabetes mellitus, well controlled Personal history of nicotine dependence Factor 5 Leiden mutation, heterozygous Obstructive sleep apnea on CPAP (~2008) Osteopenia (~2018) Pacemaker (~2021) History of CVA (cerebrovascular accident) (~2019) Hyperlipidemia PFO (patent foramen ovale) (~2019) HTN (hypertension) COPD (chronic obstructive pulmonary disease) Current use of anticoagulant therapy (~2019) Surgical History Hx of cystoscopy Hx of blepharoplasty History of esophagogastroduodenoscopy (EGD) History of colonoscopy History of unilateral oophorectomy History of cholecystectomy (~2000) History of bladder surgery (~1999) History of pacemaker (~2021) Family History Mother Stroke Multiple sclerosis Diabetes Father CAD (coronary artery disease) Social History Alcohol intake: never Patient Tobacco Use Status: Current everyday Tobacco user Tobacco use type: Cigarette Cigarettes Per Day: 4 Years Smoked: 40 +/- e-Cigarette/Vaping Use: Currently Using service: No Current occupational status: retired Review of Systems Const All systems reviewed & are unremarkable except as noted in HPI and below Physical Exam Vital Signs: Last Vital Signs Pulse 88 10/12/24 15:22 BP 124/56 L 10/12/24 15:22 Pulse Ox 96 10/12/24 15:22 Oxygen Delivery Method Room Air 10/12/24 15:22 BMI result Body Mass Index 25.6 No apparent distress Nonicteric Abdomen soft, nondistended Alert and oriented x3, normal gait Assessment & Plan Assessment & Plan (1) Lesion of lung: Code(s): R91.1 - Solitary pulmonary nodule Category: Medical (2) Iron deficiency anemia: Code(s): D50.9 - Iron deficiency anemia, unspecified Category: Medical (3) History of colon polyps: Onset Date: ~2009 Comment: x3 TA in 2021 Code(s): Z86.010 - Personal history of colon polyps Category: Medical Plan 1. New suspicious nodule in RLL Noted on CT chest 09/2024. Plan for PET scan and bronch in the upcoming weeks. To note - location is a bit unclear based on the report wording -- Right vs Left lower lobe. Follows with Dr Ferguson -- [facility]. - Smoking cessation strongly advised again 2. Iron deficiency anemia is responsive to iron supplementation. Currently booked for procedures January 2025. Advised to keep that appt for now, and will review based on overall clinical course after pathological dx of the lung nodule. Pt already has prep and instructions re med holds. 3. GERD Sx consistent with reflux. Mild pharyngoesophageal dysphagia reported which is a longstanding issue and not changed from years. No stenosis/narrowing noted on barium swallow 2021 or EGDs 2021 and 2023. Plan: - Increase famotidine to BID - Advised to space out plavix and iron supplements from this - Smoking cessation strongly advised again Follow up 4 months - already booked Coding Level of Care Code Est Pt Level 4 (20454) Complex EM visit Add On G2211 Diagnoses Lesion of lung R91.1 Iron deficiency anemia D50.9 History of colon polyps Z86.010
[2024-10-12 15:22] VITALS: BP 124/56; PULSE 88; O2SAT 96; BMI 25.6
== END 2024-10-12 16:10 | disposition home or self-care (01) ==
LOC: HO.HGI 15:07
PROVIDERS: PCP Internal Medicine; Visit Provider Internal Medicine
DX: R91.1 Solitary pulmonary nodule (principal); D50.9 Iron deficiency anemia, unspecified; Z86.0100 Personal history of colon polyps, unspecified
CPT/HCPCS: 99214; G2211

== ENCOUNTER → 2024-10-12 15:06 | Outpatient (BNVA) | payer MEDICARE, MEDICAID, SELFPAY | PROVIDERS: PCP Internal Medicine; Visit Provider Internal Medicine | DX: R91.1 Solitary pulmonary nodule (principal); D50.9 Iron deficiency anemia, unspecified; Z86.0100 Personal history of colon polyps, unspecified | CPT/HCPCS: 99212 ==

== ENCOUNTER 2024-10-16 09:00 | Outpatient (AMB) | payer MEDICARE, MEDICAID, SELFPAY ==
[2024-10-16 09:17] LABS: ~PT, ~INR - Anti Coag Clinic 2.7 (0.9-1.1)
--- NOTE | 2024-10-16 16:19 | MHC.OFFVISCO ---
Intake Intake Visit Reasons: Anticoagulation Allergies vancomycin [VANCOMYCIN] Allergy (Intermediate, Verified 10/12/24 15:12) ITCHING/RASH metoclopramide [From Reglan] Adverse Reaction (Intermediate, Verified 10/12/24 15:12) Nausea and Vomiting Nursing Note INR: 2.7 in therapeutic range Medications and supplements reviewed Pt having petscan 10/25 and bronchoscopy with bx 10/26 has lovenox bridge order in place has plavix and monjaro order to hold x 7 days has concern with recent stent to hold plavix x 7 days - cardiology consulted Denies any signs and symptoms of bleeding or bruising or clotting. Bleeding, bruising, clotting discussed Nutritional guidance given Dose: cont usual dose until 10/19 this Tuesday last dose 10/20 hold starts 10/21 lovenox bridge with last dose 10/25 in am 10/26 resume warfarin when cleared by surgeon and lovenox 10/29 resume lovenox per PCP or sooner per surgeon F/U INR: 11/01/24 Patient verbalizes understanding of instructions given Anti-Coag Initial Assessment Social Hx Patient Tobacco Use Status: Current everyday Tobacco user Tobacco use type: Cigarette alcohol intake: never Coding Level of Care Code Est Patient Level 1 Diagnoses Current use of anticoagulant therapy Z79.01 Assessment & Plan Assessment & Plan (1) Current use of anticoagulant therapy: Onset Date: ~2019 Comment: (due to Stroke with PFO and factor 5 leiden) Code(s): Z79.01 - halfway (current) use of anticoagulants Category: Medical
== END 2024-10-16 16:19 | disposition home or self-care (01) ==
LOC: HO.ACS 09:00
PROVIDERS: PCP Internal Medicine; Visit Provider Internal Medicine Medical Oncology
DX: Z79.01 Long term (current) use of anticoagulants (principal)

== ENCOUNTER → 2024-10-16 09:00 | Outpatient (BNVA) | payer MEDICARE, MEDICAID, SELFPAY | PROVIDERS: PCP Internal Medicine; Visit Provider Internal Medicine Medical Oncology | DX: Z86.73 Personal history of transient ischemic attack (TIA), and cerebral infarction without residual deficits (principal); Z79.01 Long term (current) use of anticoagulants; Z51.81 Encounter for therapeutic drug level monitoring | CPT/HCPCS: 85610; 99211 ==

== ENCOUNTER 2024-10-31 09:11 | Outpatient (AMB) | payer MEDICARE, MEDICAID, SELFPAY ==
--- NOTE | 2024-10-31 09:22 | MHC.OFFVISCO ---
Intake Intake Visit Reasons: Anticoagulation Allergies vancomycin [VANCOMYCIN] Allergy (Intermediate, Verified 10/31/24 09:15) ITCHING/RASH metoclopramide [From Reglan] Adverse Reaction (Intermediate, Verified 10/31/24 09:15) Nausea and Vomiting Medication List - Last Reconciled 10/31/24 by Anny Orta RN albuterol sulfate 90 mcg/actuation 2 puffs inhalation Q4H PRN albuterol sulfate 2.5 mg inhalation Q8H PRN amlodipine 5 mg PO DAILY atorvastatin 40 mg PO DAILY blood sugar diagnostic As directed carisoprodol (Soma) 350 mg PO TID PRN cholecalciferol (vitamin D3) 25 mcg PO DAILY clopidogrel (Plavix) 75 mg PO DAILY cyanocobalamin (vitamin B-12) PO diclofenac sodium 1% topical ezetimibe 10 mg PO DAILY famotidine 20 mg PO BEDTIME ferrous sulfate 325 mg PO DAILY food supplemt, lactose-reduced (Boost) PO hydrocortisone 2.5% appl topical lancets As directed magnesium oxide 400 mg PO DAILY metoprolol succinate ER 50 mg PO DAILY ondansetron HCl 8 mg PO Q12H PRN oxcarbazepine 300 mg PO BID oxycodone 5 mg PO BEDTIME PRN pramipexole mg PO sucralfate 1 g PO BID tirzepatide (Mounjaro) mg subcut umeclidinium-vilanterol 62.5-25 mcg/actuation (Anoro Ellipta) inhalation DAILY warfarin 5 mg See Protocol PO DIRECTED Nursing Note INR 1.6-? out of therapeutic range of 2-3 Medications and supplements reviewed Patient status: s/p bronch/biopsy on 10/26- with 7 day hold warfarin prior pt awaiting cytology report pt currently on lovenox bid Medications or supplements: no changes Diet: fair Denies any signs and symptoms of bleeding or clotting or unusual bruising Bleeding, bruising, clotting discussed - pt states expectored old bloody sputum x 1 last night pt instructed to call md with any further bleeding Nutritional guidance given: no greens , eat reds to raise Dose: 10mg today, 7.5mg tomm - cont lovenox F/U INR Date : tuesday11/02/24?? Patient verbalizing understanding of instructions given. Anti-Coag Initial Assessment Social Hx Patient Tobacco Use Status: Current everyday Tobacco user Tobacco use type: Cigarette alcohol intake: never Coding Level of Care Code Est Patient Level 2 Diagnoses Current use of anticoagulant therapy Z79.01 Assessment & Plan Assessment & Plan (1) Current use of anticoagulant therapy: Onset Date: ~2019 Comment: (due to Stroke with PFO and factor 5 leiden) Code(s): Z79.01 - intermediate frame tender (current) use of anticoagulants Category: Medical
[2024-10-31 09:23] LABS: Prothrombin Time Whole Bld POC 19.6 sec (11.1-13.5); ~PT, ~INR - Anti Coag Clinic 1.6 (0.9-1.1)
--- OUTSIDE RECORDS SUMMARY | 2024-10-31 09:58 | XMS_ITS | Continuity of Care Document ---
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 Name Role Phone Manuel Merrill MD Primary Care Physician [phone] Encounter 10/25/24 - 10/26/[address] [address]- Attending Physician: Not on Staff, Attending MD Referring Physician: Not on Staff, Referring MD Encounter Type: [facility] Allergies, Adverse Reactions, Alerts Substance Criticality Severity [...] Date: 11/10/23 Status: Ordered Repeat number: 1 atorvastatin 40 mg oral tablet 1 tablet = 40 mg, By Mouth, Daily, 0 Refills, Maintenance, 12/27/19 6:56:00 PM EDT Start Date: 12/27/19 Status: Ordered Repeat number: 1 clopidogrel 75 mg oral tablet 75 mg, 1, tablet, By Mouth, Daily, # 90 tablet, Refills 3, Tot. Refills 3, Maintenance, 01/31/24 2:12:00 PM EDT, Route to Pharmacy Electronically, [facility]/pharmacy #[id number], Partial fill upon patient requestif the prescription [...] Quantity: 90.0 Unit: tablet Repeat number: 1 famotidine 20 mg oral tablet Refills 0, Maintenance, 10/22/24 12:36:00 PM EDT, Partial fill upon patient request if the prescription is for a schedule II opioid drug. Start Date: 10/22/24 Status: Ordered Repeat number: 1 ferrous sulfate 325 mg oral tablet 0 Refills, Maintenance, 10/22/24 12:35:00 PM EDT, Partial fill upon patient request if the prescription is for a schedule II opioid drug. Start Date: 10/22/24 Status: Ordered Repeat number: 1 hydrocortisone 2.5% topical cream [...] Date: 11/10/23 Status: Ordered Repeat number: 1 Metoprolol Succinate ER 50 mg oral tablet, extended release 90 each, 0 Refill(s), TAKE 1 TABLET BY MOUTH DAILY, 0 Refills, 11/10/23 8:39:00 AM EDT, Partial fillupon patient request if the prescription is for a schedule II opioid drug. Start Date: 11/10/23 Status: Ordered Repeat number: 1 Mounjaro Subcutaneous Infusion, 0 Refills, Maintenance, 10/22/24 12:37:00 PM EDT, Partial fill upon patient request if the prescription is for a schedule II opioid drug. Start Date: 10/22/24 Status: Ordered Repeat number: 1 OXcarbazepine 150 mg oral tablet 2, tablet, By Mouth, 2 times a day, DAYS INSTR:FOR TRIGMEINAL NEURALGIA, # 360 tablet, Refills 3, Tot. Refills 3, Maintenance, 06/29/24 2:20:00 PM EST, Route to Pharmacy Electronically, [facility]/pharmacy #[id number], 152, cm, 06/29/24 13:25:00 EST, [...] Date: 11/10/23 Status: Ordered Repeat number: 1 Ventolin HFA 108 mcg/inh inhalation aerosol with adapter 2 puffs, Inhalation, 4 times a day, PRN NEEDED FOR WHEEZING - USE WITH SPACER CHAMBER, # 18 each, 5 Refills, Maintenance, 04/24/24 11:17:00 AM EDT, [facility], 152, cm, 01/31/24 13:16:00 EDT, Height Start [...] DM2 (diabetes mellitus, type 2) Confirmed Active Results Radiology Reports * Exam Date Time Procedure Performing Provider Status 10/25/24 3:[address] PET Auth ([facility] ed) Notes: (CT PET) Reason For Exam: SPN;SPN RESULT: CT PET [facility] PET/CT Imaging VISIT NUMBER :[id number] Patient Name: Melvin Looney Date of : 1955 Date of Exam: 10-25-2024 Referring Physician: Julio Cesar Ferguson [address] [place] [address] [place] [address] Exam: PT Skull Base to Mid Thigh CPT 40367 Room Description: [facility] Pt4 PET CT History: 69-year-old female with new right upper lobe nodule on prior CT chest 10/05/2024. Technique: The procedure was explained to the patient. The patient's serum glucose was 123 mg/DL at the time of injection. Beginning approximately 60 minutes following the intravenous administration of 12.4 mCi of F-18 fluorodeoxyglucose in the left wrist, emission images were obtained from the skull base to the proximal thighs. Following this CT was obtained at the same levels without IV or oral contrast with the patient maintaining quiet breathing. Following attenuation correction using the CT images, axial sagittal and coronal images were reconstructed. CT images are used for attenuation correction and image localization and were neither performed, nor intended to replace, diagnostic quality CT. Comparison: CT chest without contrast 10/05/2024, 04/03/2024. FINDINGS Internal Reference Values: Ascending aortic blood pool: SUV max 2.9. Right hepatic lobe: SUV max 3.5. Head and Neck Soft Tissues: No abnormal uptake in the soft tissues of the neck. Chest Soft Tissues: 1.1 x 1.3 cm nodule in the posterior right upper lobe (image 38), unchanged in size compared to 10/05/2024, SUV max 5.3. A few additional bilateral pulmonary micronodules ranging in size from 0.3 to 0.4 cm are unchanged in size and do not demonstrate FDG uptake, but are too small to characterize by PET/CT (for example image 43, 53). Unchanged prominent right lower paratracheal node measuring 0.7 cm in short axis (image 48) and 0.8 cm short axis subcarinal node (image 54), no significant associated FDG uptake. No other FDG avid mediastinal or hilar lymphadenopathy. Bilateral upper lobe predominant centrilobular and paraseptal emphysema. Severe thoracic aortic vascular calcification. No aneurysm. Moderate coronary artery calcification. ICD in place. Abdomen and Pelvis Soft Tissues: No FDG avid abdominal or retroperitoneal lymphadenopathy. The liver is normal. Status post cholecystectomy. The spleen is normal. Small calcifications in the distal body and tail of the pancreas. Mild atrophy of the tail. Findings likely represent sequela of prior pancreatitis. No suspicious solid masses. No pancreatic ductal dilatation. Mild thickening of the left adrenal gland, without discrete nodularity. The right adrenal gland is normal. No dedicated imaging follow-up required. The kidneys and ureters are normal. The urinary bladder is normal. The uterus is normal. Mild colonic diverticulosis, without evidence of acute diverticulitis. No evidence of small bowel obstruction. The stomach is normal. Severe abdominal aortic vascular calcification. Infrarenal abdominal aorta is ectatic measuring up to 2.8 cm in diameter (for example image 91). Small locules of air in the anterior abdominal wall, likely sequela of injection. Bones and Extremities: No acute abnormality. Moderate degenerative changes of the spine. IMPRESSION: 1.3 cm nodule in the posterior apex of the right lung, unchanged in size compared to 10/05/2024, but demonstrating moderate FDG uptake. Findings suspicious for lung cancer. Further evaluation and characterization with tissue sampling can be considered. A few prominent mediastinal lymph nodes measuring up to 0.8 cm in short axis, without associated FDG uptake. No evidence of FDG-avid metastatic disease. I, Alvarado Ricketts MD, have reviewed the images and report and concur with the resident, Tiburcio Bernabe's, findings. Electronically Signed By: Alvarado Ricketts MD Dictated By: Not on Staff , LACY MCKAY Dictated Date/Time: 10/26/24 11:21 a Reviewed By: Not on Staff , LACY MCKAY Signed By: Not on Staff , LACY MCKAY Signed Date/Time: 10/26/24 11:21 am Transcribed By: ARMEN Transcribed Date/Time: 10/26/24 11:21 am Social History Social History Type Response Tobacco Other: 1/2ppd. Sex Sex Representation Female (finding) Patient Care team information Care Team Personnel Name: Manuel Merrill MD Position: [facility] Outreach Member Role: PCP Address: [address] [place] [address] [address] Telecom: Name: Tawanna Mckeon Position: [facility] Outreach Member Role: [employer] Consulting Physician Care Team Related Persons Name: MITCHELL LOONEY Name: VICENTE LOONEY Insurance Providers Guarantor name: MELVIN LOONEY Health Plan Information #: 1 Payer: MEDICARE PART B OUTPT Member Number: NA Policy Number: NA Group Number: NA Health Plan Information #: 2 Payer: [place] Member Number: NA Policy Number: NA Group Number: NA
--- OUTSIDE RECORDS SUMMARY | 2024-10-31 09:58 | XMS_ITS | Continuity of Care Document ---
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 Name Role Phone Manuel Merrill MD Primary Care Physician [place] [facility] [place] 10/26/24 - 10/26/[address] [id number] Discharge Disposition: A-D/C Home Attending Physician: Mikie Kendrick MD Admitting Physician: Mikie eKndrick MD Referring Physician: Mikie Kendrick MD Encounter Type: Disch Daystay Allergies, Adverse Reactions, Alerts Substance Criticality Severity [...] PM EDT, Route to Pharmacy Electronically, [facility]/pharmacy #[id number], Partial fill upon patient requestif the prescription [...] PM EST, Route to Pharmacy Electronically, [facility]/pharmacy #[id number], 152, cm, 06/29/24 13:25:00 EST, Height, [...] Maintenance, 04/24/24 11:17:00 AM EDT, [id number], 152, cm, 01/31/24 13:16:00 EDT, Height Start [...] Exam Date Time Procedure Performing Provider Status 10/26/24 4:10 PM C-Arm < 1 Hour Isidro Ventura; Kary (Verified) Notes: (C-Arm < 1 Hour) Reason For Exam: LUNG NODULE Galaxy Bronchoscopy RESULT: C-Arm < 1 Hour C-Arm < 1 Hour INDICATION: Reason: LUNG NODULE Galaxy Bronchoscopy COMPARISONS: None TECHNIQUE: Fluoroscopy support was provided. There was no radiologist in attendance. FLUOROSCOPY TIME: 6 minutes, 48.9 seconds EXPOSURE: 15.162 Gycm2 (Dose Area Product) TECHNOLOGIST TIME: 1 hour, 48 minutes FINDINGS: Fluoroscopy support was provided. There was no radiologist in attendance. IMPRESSION: See above. WSN: [id number] Ordering Physician: Mikie Kendrick Dictated By: Norberto Resendez MD Dictated Date/Time: 10/26/24 7:56 pm Reviewed By: Norberto Resendez MD Signed By: Norberto Resendez MD Signed Date/Time: 10/26/24 7:56 pm Transcribed By: GAIL Transcribed Date/Time: 10/26/24 7:15 pm * Exam Date Time Procedure Performing Provider Status 10/26/24 4:48 PM Chest Portable Gabby Hernandez; Auth (V erified) Notes: (Chest Portable) Reason For Exam: Postop RESULT: Chest Portable Chest Portable REASON: Postop; Clinical Question(s): Postop / Postop COMPARISON: 10/29/2023, PET/CT 10/25/2024. FINDINGS: LINES AND TUBES: Dual-lead left subclavian pacer wires are intact. LUNGS AND PLEURA: Hazy opacity in the right upper lobe. No pleural effusion. No pneumothorax. HEART, MEDIASTINUM AND MARTHA: Heart is normal in size. Aorta is mildly calcified. BONES AND SOFT TISSUES: No acute abnormality. IMPRESSION: Hazy opacity in the right upper lobe is compatible with known nodule and surrounding postbiopsy change. No pneumothorax or hemothorax. WSN: [id number] Ordering Physician: Mikie Kendrick Dictated By: Alvarado Ricketts MD Dictated Date/Time: 10/26/24 4:53 pm Reviewed By: Alvarado Ricketts MD Signed By: Alvarado Ricketts MD Signed Date/Time: 10/26/24 4:53 pm Transcribed By: GAIL Transcribed Date/Time: 10/26/24 4:52 pm Vital Signs Most recent to oldest [Reference Range]: 1 2 3 Height 150 cm (10/26/24 12:44 PM) 150 cm (10/22/24 12:53 PM) Weight 59.5 kg (10/22/24 12:53 PM) Oxygen Saturation [94-100 %] 93 % *L* (10/26/24 5:00 PM) 91 % *L* (10/26/24 4:48 PM) 92 % *L* (10/26/24 4:45 PM) Pulse Rate [55-90 bpm] 85 bpm (10/26/24 12:44 PM) Body Mass Index [18.5-24.99 kg/m2] 26.44 kg/m2 *H* (10/22/24 12:53 PM) Blood Pressure [90-138/55-84 mm Hg] 105/55mm Hg (10/26/24 5:00 PM) 103/52mm Hg (10/26/24 4:48 PM) 96/50mm Hg (10/26/24 4:30 PM) Respiratory Rate [16-30 br/min] 15 br/min *L* (10/26/24 5:00 PM) 17 br/min (10/26/24 4:48 PM) 17 br/min (10/26/24 4:45 PM) Temperature [96.8-100.4 DegF] 98.8 DegF (10/26/24 5:00 PM) 99.1 DegF (10/26/24 4:28 PM) 98.6 DegF (10/26/24 12:44 PM) Mode of Delivery (Oxygen) Room air (10/26/24 5:00 PM) Room air (10/26/24 4:28 PM) Room air (10/26/24 12:44 PM) Blood pressure sites Arm, right (10/26/24 4:28 PM) Arm, right (10/26/24 12:44 PM) Temperature Route Temporal (10/26/24 5:00 PM) Temporal (10/26/24 4:28 PM) Temporal (10/26/24 12:44 PM) Dry Weight 59.8 kg (10/26/24 12:44 PM) 59.5 kg (10/22/24 12:53 PM) Dry Weight Obtained Via Standing scale (10/26/24 12:44 PM) Social History Social History Type Response Tobacco Other: 1/2ppd. Sex Sex Representation Female (finding) Note * Shemar CEBALLOS, Consuelo: PERFORM Event Display: Discharge/Transfer Note Hospital Authored Date: [id number] Nursing Discharge Note Entered On: 10/26/2024 17:30 EDT Performed On: 10/26/2024 17:30 EDT by Consuelo Staton RN Nursing Discharge Note 2 Discharge Time : 10/26/2024 17:30 EDT Discharge Level of Care at Discharge : Home/Fci/Foster Care Patient Left Unit Via : Wheelchair Patient Accompanied Off Unit with : Significant other DC Instructions Provided & Signed by Pt : Yes Patient Understands D/C Instructions : Yes Patient Instructions Discharge Signed : Yes Did Pt have Specialty Bed or Wound Vac : No Consuelo tSaton RN - 10/26/2024 17:30 EDT * Consuelo Staton RN: PERFORM Event Display: Patient Education/Instruction Authored Date: [id number] Surgery Adult Discharge Instructions [address] [address] Name: MELVIN SMITH : 1955?? Visit: 10/26/2024 10:57?? Current Date: 10/26/2024 17:15 ?? Account: [id number]?? Surgery Discharge Instructions We would like to thank you for allowing us to assist you with your healthcare needs. The following includes patient education materials and information regarding your injury/illness. Our entire staffstrives to provide an excellent experience for our patients and their families. PLEASE ENSURE YOU FOLLOW-UP PER THE INSTRUCTIONS BELOW! ?? YOUR OPINION IS IMPORTANT TO US! Please complete the survey you may receive by mail or email. Your feedback will be used to make improvements to the healthcare experiences of our patients and their families. Surveys are administered by [employer] ?? If further treatment with your primary care physician or another doctor is recommended, it is important for you to keep the appointment. Call your primary care physician or return to the Emergency Department immediately if your condition worsens, fails to improve, or new symptoms develop. If you need to find a doctor, you can call [facility] [employer] for a referral at [phone] or toll free at [phone] ([phone]) or log in to [email or web address].. ?? [facility], in keeping with [facility] guidance, no longer requires face masks for staff, patientsor visitors in most situations. Similiar to time spent indoors at other locations, there is the chance that you were exposed to repiratory viruses during your time with us (such as flu or COVID-19). If you develop symptoms concerning for a viral respiratory infection, please seek testing (and treatment if indicated) from your medical provider or home test kit. ?? You can view and manage your care through the patient portal or by using a health care fernando of your choosing. [employer] is a website that allows you to securely view your medical information including your hospital discharge summary, office visit summaries, medications and follow-up visits. You can also request appointments, renew medications, and request access to your medical information using a health care fernando of your choosing, or just ask a question. You are entitled to know the individuals who participated in your treatment. This information is available within your medical record and will be provided upon your request. You can enroll at [email or web address] or register d uring your next office visit. You have been discharged from [facility], Patient Care Unit: PANU??. If you have any questions regarding these instructions after you leave, please call us and we will be happy to assist you. [facility] Your Care Team Attending Physician Mikie Kendrick MD?? Consulting Providers Mikie Kendrick MD?? Discharging Providers Gerry Blankenship MD [facility] Ad[facility] [place] [place] [place] Primary Care Provider Manuel Merrill MD? Advance Directive Health Care Proxy on File Yes - Health Care Proxy What to do next Instructions From Your Doctor ?? Orders? 10/26/24 17:03:00 EDT?? RESTART COUMADIN TONIGHT RESTART PLAVIX TOMORROW Scheduled Follow-Up Appointments Tuesday 11:00 AM EDT ?? Where: [facility] [address] [address]- Status: Pending Tuesday 1:30 PM EDT ?? With: Antonia Clemens NP Where: [facility] [address] [place] [address]- Status: Pending Tuesday 9:00 AM EDT ?? With: Julio Cesar Ferguson MD Where: [facility] [address] [place] [address]- Status: Pending Tuesday 10:30 AM EDT ?? With: Tigre MCKAY, Evelina Tinoco Where: [facility] [address] [place] [address]- Status: Pending You Need to Schedule the Following Appointments Follow Up with??Julio Cesar Ferguson When:??12/04/2024 09:00 AM EDT Discharge Medications MELVIN SMITH :1955 Visit Date:10/26/2024 Medications: Please continue your medications until treatment is completed or stopped by your provider. You may resume your daily prescription medications. Discuss any questions related to medications with your provider. What How Much When Instructions Next Dose Unchanged Albuterol (Ventolin HFA 108 mcg/ inh inhalationaerosol with adapter) 2 puff(s) Inhalation 4 times a day as needed for NEEDED FOR WHEEZING - USE WITH SPACER CHAMBER continue as prescribed Unchanged Amlodipine (amLODIPine 10 mg oral tablet) 90 each, 0 Refill(s), TAKE 1 TABLET BY MOUTH EVERY DAY ?? continue as prescribed Unchanged Atorvastatin (atorvastatin 40 mg oral tablet) 1 tab(s) Oral Daily continue as prescribed Unchanged Cholecalciferol (Vitamin D3 2000 intl units oral tablet) 1 tab(s) Oral Daily continue as prescribed Unchanged Clopidogrel (clopidogrel 75 mg oral tablet) 1 tab(s) Oral Daily start tomorrow Unchanged Enoxaparin (enoxaparin 60 mg/ 0.6 mL injectable solution) 6 mL, 0 Refill(s), INJECT 1 PREFILLED SYRINGE SUBCUTANEOUSLY EVERY 12 HOURS DIRECTED ?? continue as prescribed Unchanged Ezetimibe (ezetimibe 10 mg oral tablet) 1 tab(s) Oral Daily continue as prescribed Unchanged Famotidine (famotidine 20 mg oral tablet) continue as prescribed Unchanged Ferrous Sulfate (ferrous sulfate 325 mg oral tablet) continue as prescribed Unchanged Hydrocortisone Topical (hydrocortisone 2.5% topical cream) 28 Gm, 0 Refill(s), APPLY TO RASH ON EARS TWICE DAILY X2 WKS ON, 1 WK OFF. REPEAT NEEDED FOR FLAKING/ ITCH. ?? continue as prescribed Unchanged Magnesium Oxide (magnesium oxide 250 mg oral tablet) 2 tab(s) Oral Daily Duration: 10 Days continue as prescribed Unchanged Magnesium Oxide (magnesium oxide 400 mg oral tablet) 90 each, 0 Refill(s), TAKE 1 TABLET BY MOUTH EVERY DAY ?? continue as prescribed Unchanged Metoprolol (Metoprolol Succinate ER 50 mg oral tablet, extended release) 90 each, 0 Refill(s), TAKE 1 TABLET BY MOUTH DAILY ?? continue as prescribed Unchanged Oxcarbazepine (OXcarbazepine 150 mg oral tablet) 2 tab(s) Oral Twice a day Duration: 90 Days DAYS INSTR:FOR TRIGMEINAL NEURALGIA ?? continue as prescribed Unchanged Oxycodone (oxyCODONE 5 mg oral tablet) 28 each, 0 Refill(s), TAKE 1 TABLET (5 MG TOTAL) BY MOUTH DAILY NEEDED ?? continue as prescribed Unchanged Pramipexole (pramipexole 1 mg oral tablet) 45 each, 0 Refill(s), PLEASE SEE ATTACHED FOR DETAILED DIRECTIONS ?? continue as prescribed Unchanged tirzepatide (Mounjaro) Subcutaneous Infusion continue as prescribed Unchanged Warfarin (warfarin 5 mg oral tablet) 180 each, 0 Refill(s), TAKE 1-2 TABLET(S) DAILY DIRECTED BY COUMADIN CLINIC. ?? start tonight Allergies (NKA means No Known Allergies) Reglan vancomycin Education Materials Below is the list of Educational Leaflet Providered with your Discharge Instructions. [employer] Patient Education - Surgery Medical Daystay Surgical Overnight Discharge Instructions?? Valuables and Belongings I fully understand and agree that [facility] accepts no responsibility for all my personal property including clothing, toilet articles, radios, jewelry, dentures, hearing aids, rings, money, or any other property that is in my possession or is brought to me after admission. I understand certain valuables may be placed in a hospital safe for a short period of time. I understand that the hospital is not liable for loss or damage due to accident, fire, or other natural occurrence while said property is in the safe. I accept full responsibility for any personal property that I keep with me, and will not hold the hospital responsible in case of loss or disappearance. I acknowledge that i have been encouraged to send valuables and belongings home. ?? Review of Valuable and Belonging List: With patient, With family Disposition of Belongings: Other: PACU closet Date for Pt to Sign Valuables/Belongings: 10/26/24 13:14:00 ?? Valuables & Belongings ?? Clothes Electronic devices Jewelry Monetary Items Personal devices Miscellaneous Medications (Valuables) Valuables at Bedside Jacket, Pants, Shirt, Shoes, Undergarments ? Dentures, upper ? Valuables Sent Home ? Valuables Sent to Security ? Valuables Sent to Locker ? Other Discharge Information ? Pulmonary Rehab Status?? Pulmonary Rehab Discharge Status?? Respiratory Rate:??15 br/min??Low ? Common Emergency Awareness Tips IS IT A STROKE? Act FAST and Check for these signs: FACE Does the face look uneven? ARM Does one arm drift down? SPEECH Does their speech sound strange? TIME Call at any sign of stroke ?? Heart Attack Signs Chest discomfort: Most heart attacks involve discomfort in the center of the chest and lasts more than a few minutes, or goes away and comes back. It can feel like uncomfortable pressure, squeezing, fullness or pain. Discomfort in upper body: Symptoms can include pain or discomfort in one or both arms, back, neck, jaw or stomach. Shortness of breath: With or without discomfort. Other signs: Breaking out in a cold sweat, nausea, or lightheaded. Remember, MINUTES DO MATTER. If you experience any of these heart attack warning signs, call to get immediate medical attention! ?? Smoking can increase your chances of developing chronic health problems and can cause harmful effects to other family members in your house. If you smoke, you are strongly encouraged to quit. Please call [employer] [facility] at [phone] or [phone]) or log in to [email or web address] for referrals to smoking cessation programs. ?? The National Suicide Prevention Hotline is available 07/02 if you or someone you know needs to find a reason to keep living. By calling 4-064-949-talk (6530) you'll be connected to a skilled, trained counselor at a crisis center in your area. SURGERY DISCHARGE INSTRUCTIONS SIGNATURE PAGE MELVIN SMITH Location:[facility] Registration Date and Time:10/26/2024 10:57 EDT Primary Care Physician: Manuel Merrill MD, Attending Physician: Mikie Kendrick MD, I MELVIN SMITH, have received the above patient education materials/instructions and have verbalizedunderstanding. If ambulance or transport services are being used I further acknowledge being given a choice of service. ?? If you need to contact me, please call me at this number: . Patient/Faucets Assembler Name: Patient/Faucets Assembler Signature: Relationship to Patient: Witness Name/Signature: Date: * Consuelo Staton RN: PERFORM, SIGN, VERIFY Event Display: Patient Education Handout Authored Date: [id number] * Consuelo Staton RN: PERFORM Event Display: Patient Education Leaflets Authored Date: [id number] Bronchoscopy Post Procedure Instructions ?? 665 ?Bronchoscopies are usually done in the endoscopy suite or the operating room.?? They are generally an outpatient procedure but sometimes require an inpatient stay.?? Your health care team will monitor you after the procedure until you have recovered. Your doctor will decide if you need to be admitted to the hospital overnight.??Common side effects and Care:??Fever: ??? You may get a fever the evening after your bronchoscopy. ??? If you develop a fever higher than 101 ??F (38.3 ??C) you maytake acetaminophen (Tylenol) ??? If your fever lasts longer than 24 hours please call your doctor ??Sore throat: ??? Take throat lozenges (regular or sugar-free) as needed ??? Drink plenty of fluids.?? Warm non-caffeinated fluids can be soothing to the throat. ??? Rest your voice for a day ??? Avoid smoking as this may increase throat irritation ??Coughing: ? ? Small amounts of phlegm and little blood (< 2 tablespoons) are common for 24 hours after the procedure. ??? Increased coughing occurring beyond 24 hours after the procedure can happen. ??Side effects requiring notification of your physician: ??? Intravenous site redness or drainage ??? Bleeding (more than a teaspoon) from your nose or throat ??After the procedure:??Breathing: ??? Cough and take deep breaths for 24 hours after your bronchoscopy ??Food and fluids: ??? Because your throat may feel numb for several hours you cannot eat or drink anything until your nurse determines that your gag and swallow reflexes have returned. ??? Restart eating soft foods and then regular meals when you feel ready, unless otherwise instructed by your health team ??Activity: ??? You may feel tired or dizzy after the procedure.?? When you feel ready, slowly return to your regular activities. ??Medications:Restart all of your previous medications as directed by your doctor.Your doctor will let you know if and when it safe to resume any anti- inflammatory medications or blood thinners??24-hour restrictions after bronchoscopy (due to the effects of sedation):? Do not drive or operate h eavy machinery.?? For example do not drive a car or operate a lawnmower. ??? Do not drink alcohol. ??? Do not make important decisions or sign contracts or legal documents. ?Emergency precautions:Go to the nearest emergency room if you have any of the following:? Difficulty breathing ??? Severe wheezing ??? Chest pain or discomfort ??? Severe throat pain or neckswelling ??? Severe dizziness, weakness, palpitations or fast heart rate ??? Large amounts of bleeding from nose or throat ??? If you are coughing up a large amount of blood ??If you have any questions or concerns, please contact your doctor at the following numbers:??[facility] [phone]?[facility]& Sleep MedicineLegacy Health'?? [phone]? * Shemar CEBALLOS, Consuelo: PERFORM Event Display: Patient Education Leaflets Authored Date: [id number] Surgery Medical Daystay Surgical Overnight Discharge Instructions ?? 295 Medical Daystay/Surgical Overnight Discharge Instructions ? Since your coordination and judgment may be altered by medication and/or anesthesia, a responsible adult must drive you home from the hospital. ? If you have received medication for pain or sedation while under our care, you should not drive, operate machinery, drink alcohol, or sign any legal documents for 24 hours.?? You should have someone with you at home tonight. ? Remain at home the day of discharge.?? You may be up and about unless otherwise instructed by your physician. ? You may resume your daily prescription medication schedule.?? Any depressant medication should be avoided for 24 hours unless otherwise instructed by your surgeon or anesthesiologist. ? Call your physician for a follow-up appointment.? If you experience unusual or severe pain not relied by your pain medication, excessive bleedingor drainage, persistent nausea and vomiting, excessive swelling or redness, foul odor from incisionsite or fever over 100.6F, you need to call your physician. ? A follow-up phone call by a nurse will be made the day after your procedure.?? If you have stayed with us over night, you will not be receiving a follow-up phone call. ? Nausea and vomiting are a common side effect of prescription pain medication.?? We recommend that pills are not taken on an empty stomach.?? While taking any prescription pain medication you should not drive or drink alcohol. ? Patient Care team information Care Team Personnel Name: Manuel Merrill MD Position: [facility] Outreach Member Role: PCP Address: [address] [place] [address] [place] [address]- Telecom: Name: Tawanna Mckeon Position: [facility] Outreach Member Role: Lifetime Consulting Physician Care Team Related Persons Name: MITCHELL SMITH Name: VICENTE SMITH Insurance Providers Guarantor name: MELVIN CABRERAC Health Plan Information #: 2 Payer: [employer] Member Number: [id number] Policy Number: NA Group Number: NA Health Plan Information #: 1 Payer: MEDICARE PART B OUTPT Member Number: [id number] Policy Number: NA Group Number: NA
== END 2024-10-31 10:13 | disposition home or self-care (01) ==
LOC: HO.ACS 09:11
PROVIDERS: PCP Internal Medicine; Visit Provider Internal Medicine Medical Oncology
DX: Z79.01 Long term (current) use of anticoagulants (principal)

== ENCOUNTER → 2024-10-31 09:11 | Outpatient (BNVA) | payer MEDICARE, MEDICAID, SELFPAY | PROVIDERS: PCP Internal Medicine; Visit Provider Internal Medicine Medical Oncology | DX: Z86.73 Personal history of transient ischemic attack (TIA), and cerebral infarction without residual deficits (principal); Z79.01 Long term (current) use of anticoagulants; Z51.81 Encounter for therapeutic drug level monitoring | CPT/HCPCS: 85610; 99212 ==

== ENCOUNTER 2024-11-02 08:59 | Outpatient (AMB) | payer MEDICARE, MEDICAID, SELFPAY ==
[2024-11-02 09:10] LABS: Prothrombin Time Whole Bld POC 24.5 sec (11.1-13.5)
--- NOTE | 2024-11-02 09:25 | MHC.OFFVISCO ---
Intake Intake Visit Reasons: Anticoagulation Allergies vancomycin [VANCOMYCIN] Allergy (Intermediate, Verified 11/02/24 09:00) ITCHING/RASH metoclopramide [From Reglan] Adverse Reaction (Intermediate, Verified 11/02/24 09:00) Nausea and Vomiting Medication List - Last Reconciled 11/02/24 by Vonda Cam RN albuterol sulfate 90 mcg/actuation 2 puffs inhalation Q4H PRN albuterol sulfate 2.5 mg inhalation Q8H PRN amlodipine 5 mg PO DAILY atorvastatin 40 mg PO DAILY blood sugar diagnostic As directed carisoprodol (Soma) 350 mg PO TID PRN cholecalciferol (vitamin D3) 25 mcg PO DAILY clopidogrel (Plavix) 75 mg PO DAILY cyanocobalamin (vitamin B-12) PO diclofenac sodium 1% topical enoxaparin mg subcut ezetimibe 10 mg PO DAILY famotidine 20 mg PO BEDTIME ferrous sulfate 325 mg PO DAILY food supplemt, lactose-reduced (Boost) PO hydrocortisone 2.5% appl topical lancets As directed magnesium oxide 400 mg PO DAILY metoprolol succinate ER 50 mg PO DAILY ondansetron HCl 8 mg PO Q12H PRN oxcarbazepine 300 mg PO BID oxycodone 5 mg PO BEDTIME PRN pramipexole mg PO sucralfate 1 g PO BID tirzepatide (Mounjaro) mg subcut umeclidinium-vilanterol 62.5-25 mcg/actuation (Anoro Ellipta) inhalation DAILY warfarin 5 mg See Protocol PO DIRECTED Nursing Note INR: 2.0 in therapeutic range Medications and supplements reviewed- She had booster doses of warfarin tue and that are still in effect. up from 1.6 to 2.0 in 2 days She has to have another bx through her back- date to be determined - she is going to notify Dr Merrill. Has bruising from lovenox on abd, she coughed up old blood yesterday - will stop lovneox Bleeding, bruising, clotting discussed Nutritional guidance given - avoid boost and ensure x 2 days Dose: resume usual dose 5mg sun tue/ 7.5mg x 4 days F/U INR: 1 wk She will call with date of next Bx Patient verbalizes understanding of instructions given with read back Anti-Coag Initial Assessment Social Hx Patient Tobacco Use Status: Current everyday Tobacco user Tobacco use type: Cigarette alcohol intake: never Coding Level of Care Code Est Patient Level 1 Diagnoses Current use of anticoagulant therapy Z79.01 Results AMB INR Fingerstick AMB INR Fingerstick 2.0 Last Edit by Vonda Cam RN on 11/02/24 09:15 MANUAL ENTRY Assessment & Plan Assessment & Plan (1) Current use of anticoagulant therapy: Onset Date: ~2019 Comment: (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
== END 2024-11-02 09:29 | disposition home or self-care (01) ==
LOC: HO.ACS 08:59
PROVIDERS: PCP Internal Medicine; Visit Provider Internal Medicine Medical Oncology
DX: Z79.01 Long term (current) use of anticoagulants (principal)

== ENCOUNTER → 2024-11-02 08:59 | Outpatient (BNVA) | payer MEDICARE, MEDICAID, SELFPAY | PROVIDERS: PCP Internal Medicine; Visit Provider Internal Medicine Medical Oncology | DX: Z86.73 Personal history of transient ischemic attack (TIA), and cerebral infarction without residual deficits (principal); Z79.01 Long term (current) use of anticoagulants; Z51.81 Encounter for therapeutic drug level monitoring | CPT/HCPCS: 85610; 99211 ==

== ENCOUNTER 2024-11-08 09:46 | Outpatient (AMB) | payer MEDICARE, MEDICAID, SELFPAY ==
--- NOTE | 2024-11-08 10:05 | MHC.OFFVIS ---
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 Required: No Allergies vancomycin [VANCOMYCIN] Allergy (Intermediate, Verified 11/02/24 09:00) ITCHING/RASH metoclopramide [From Reglan] Adverse Reaction (Intermediate, Verified 11/02/24 09:00) Nausea and Vomiting Medication List - Last Reconciled 11/08/24 by Raad Chisholm MD albuterol sulfate 90 mcg/actuation 2 puffs inhalation Q4H PRN albuterol sulfate 2.5 mg inhalation Q8H PRN amlodipine 5 mg PO DAILY atorvastatin 40 mg PO DAILY blood sugar diagnostic As directed carisoprodol (Soma) 350 mg PO TID PRN cholecalciferol (vitamin D3) 25 mcg PO DAILY clopidogrel (Plavix) 75 mg PO DAILY cyanocobalamin (vitamin B-12) PO diclofenac sodium 1% topical enoxaparin mg See Protocol subcut ezetimibe 10 mg PO DAILY famotidine 20 mg PO BEDTIME ferrous sulfate 325 mg PO DAILY food supplemt, lactose-reduced (Boost) PO hydrocortisone 2.5% appl topical lancets As directed magnesium oxide 400 mg PO DAILY metoprolol succinate ER 50 mg PO DAILY ondansetron HCl 8 mg PO Q12H PRN oxcarbazepine 300 mg PO BID oxycodone 5 mg PO BEDTIME PRN pramipexole 1 mg PO tirzepatide (Mounjaro) mg subcut umeclidinium-vilanterol 62.5-25 mcg/actuation (Anoro Ellipta) inhalation DAILY warfarin 5 mg See Protocol PO DIRECTED HPI Comments Details: Diane comes for follow-up. She says she feels very much overall fatigue. With the last month she was also having increasing symptoms of palpitation mostly at nighttime. She underwent a biopsy of the lung tissue but was told that it did not achieve the biopsy of the targeted lesion. She needs to undergo another biopsy attempt. Patient denies any exertional chest pain. No worsening shortness of breath, orthopnea, PND. Denies any lightheadedness, syncope. Her overwhelming symptom has been fatigue. Unfortunately renally she continues to smoke although she was cut it down to 2 cigarettes a day [facility] Medical History Coronary artery calcification seen on CAT scan History of colon polyps (~2009) Type II diabetes mellitus, well controlled Personal history of nicotine dependence Factor 5 Leiden mutation, heterozygous Obstructive sleep apnea on CPAP (~2008) Osteopenia (~2018) Pacemaker (~2021) History of CVA (cerebrovascular accident) (~2019) Hyperlipidemia PFO (patent foramen ovale) (~2019) HTN (hypertension) COPD (chronic obstructive pulmonary disease) Current use of anticoagulant therapy (~2019) Surgical History Stented coronary artery S/P cardiac cath Hx of cystoscopy Hx of blepharoplasty History of esophagogastroduodenoscopy (EGD) History of colonoscopy History of unilateral oophorectomy History of cholecystectomy (~2000) History of bladder surgery (~1999) History of pacemaker (~2021) Family History Mother Stroke Multiple sclerosis Diabetes Father CAD (coronary artery disease) Social History Alcohol intake: never Patient Tobacco Use Status: Current everyday Tobacco user Tobacco use type: Cigarette Cigarettes Per Day: 4 Years Smoked: 40 +/- e-Cigarette/Vaping Use: Currently Using service: No Current occupational status: retired Review of Systems Const Denies chills, Denies fatigue, Denies fever(s), Denies frequent falls, Denies weakness, Denies weight gain and Denies weight loss ENT Denies dizziness Card Reports chest pain, Denies leg edema, Denies lightheadedness, Reports palpitations, Denies dyspnea, Denies dyspnea on exertion, Denies orthopnea and Denies other (loss of consciousness) Resp Denies cough, Denies dyspnea and Denies dyspnea on exertion GI Denies hematochezia and Denies change in stool character Musc Denies abnormal gait, Denies muscle weakness, Denies numbness, Denies radiating pain into limb and Denies tingling Neuro Denies abnormal gait, Denies dizziness, Denies frequent falls, Denies numbness, Denies tingling and Denies weakness Endo Denies fatigue and Reports palpitations Physical Exam Vital Signs: Last Vital Signs Pulse 88 11/08/24 10:06 BP 124/80 11/08/24 10:06 BMI result Body Mass Index 25.4 Const General: cooperative, healthy appearing, comfortable, no acute distress and anxious Orientation/consciousness: patient oriented x3 Neck Neck: Yes normal visual inspection and Yes no JVD Carotids: normal carotid upstroke Resp Effort & Inspection: normal respiratory effort Auscultation: clear to auscultation bilaterally, no crackles, no rales, no rhonchi and wheezes expiratory wheezes and right lower Cardio Jugular venous distension: no JVD Rate: tachycardic Rhythm: regular rhythm Heart sounds: S1 normal heart sound present, S2 normal heart sound present, no gallops, no murmurs and no rubs Peripheral pulses: Peripheral pulses 2+ throughout Neuro General: patient oriented x3 Extrem General: Yes normal to inspection, No no pedal edema and No calf tenderness Office Procedures Cardiac Device Check Cardiac Device Check Details: Dual-chamber Medtronic pacemaker in place. Programmed in MVP mode at 60 beats per minute. Atrial pacing at 2.4% of time. No arrhythmias detected. Atrial ventricular sensing is adequate. Atrial pacing thresholds excellent and reprogrammed to enhance battery life. Ventricular pacing thresholds are stable. Pacing lead impedance is stable. Battery life is at 12.2 years [id number] Cardiac Device Check, pacemaker dual lead Procedure code (CPT) selection complete Assessment & Plan Assessment & Plan (1) CAD (coronary artery disease): Code(s): I25.10 - Atherosclerotic heart disease of [place] coronary artery without angina pectoris Category: Medical Plan: CAD with stenting of the RCA last January. Patient was currently on Plavix and warfarin therapy. Had to come off Plavix for lung biopsy and with Lovenox bridging. She did well. No recurrent symptoms. Continue aggressive risk factor modification. Continue Plavix for 1 year total after stenting and following that just warfarin lifelong. Continue high-intensity statin therapy. Continue aggressive control blood pressure which is well optimized at this point time. No other workup is indicated at this point time. (2) Cardiac pacemaker in situ: Code(s): Z95.0 - Presence of cardiac pacemaker Category: Medical Plan: Cardiac pacemaker in-situ, working well. Reprogrammed for adequate functioning. Will follow up remotely every 3 months. Follow up in the clinic in 6 months time. (3) History of CVA (cerebrovascular accident): Onset Date: ~2019 Comment: (Right embolic stroke while on ASA - acute cortical infarct right precentral gyrus - 09/19/2019) Code(s): Z86.73 - Personal history of transient ischemic attack (TIA), and cerebral infarction without residual deficits Category: Medical Plan: Prior CVA with multiple risk factors as well as PFO. Has remained on warfarin therapy. Has done well with warfarin therapy. Being [facility]. Maintain target INR between 2 and 3. Smoking cessation was advised. (4) Palpitations: Code(s): R00.2 - Palpitations Plan: Patient with increasing symptoms of palpitation probably related to anxiety. The no overt arrhythmias noted on pacer telemetry. At this point time will increase metoprolol to 100 mg daily to help with her symptoms. Advised to monitor blood pressure at home maintain a log. Will follow up in the clinic in 6 months time, sooner p.r.n.. Thank you for allowing me to partake in her care Medications: New metoprolol succinate ER (Toprol XL) 100 mg PO DAILY 30 tabs 5RF Discontinued metoprolol succinate ER Discontinued Reason: Doctor's Order 50 mg PO DAILY 90 tabs 3RF Coding Level of Care Code Est Pt Level 4 (43715) Complex EM visit Add On G2211 Diagnoses CAD (coronary artery disease) I25.10 Cardiac pacemaker in situ Z95.0 History of CVA (cerebrovascular accident) Z86.73 Palpitations R00.2 CPT Codes Cardiac Device Check - Cardiac Device 2: [id number] Cardiac Device Check, pacemaker dual lead ([id number])
[2024-11-08 10:06] VITALS: BP 124/80; PULSE 88; BMI 25.4
--- OUTSIDE RECORDS SUMMARY | 2024-11-08 10:54 | XMS_ITS | Continuity of Care Document ---
Author Organization [facility] Pulmonary M edicine Address [address] [place] [id number]- Care Team Providers Care Biotechnologist Name Role Phone Garfield MCKAY, Manuel Primary Care Physician [place] [facility] [place] 10[place]05[place]24 - 11/04/24 [facility] [address] [place] [id number] Encounter Type: Triage Allergies, Adverse Reactions, Alerts [...] 2:12:00 PM EDT, Route to Pharmacy Electronically, [facility]/pharmacy #[id number], Partial fill upon patient [...] 2:20:00 PM EST, Route to Pharmacy Electronically, [facility]/pharmacy #[id number], 152, cm, 06/29/24 13:25:00 [...] Maintenance, 04/24/24 11:17:00 AM EDT, [id number], 152, cm, 01/31/24 13:16:00 EDT, Height Start [...] Team Personnel Name: Manuel Merrill MD Position: [facility] Outreach Member Role: PCP Address: [address] [place] [address] Internal Medicine [place], [place] [id number] Telecom: Name: Tawanna Mckeon Position: S Outreach Member Role: Lifetime Consulting Physician Care Team Related Persons Name: MITCHELL SMITH Name: VICENTE SMITH Insurance Providers Guarantor name: MELVIN SMITH Health Plan Information #: 1 Payer: MEDICARE PART B OUTPT Member Number: NA Policy Number: NA Group Number: NA Health Plan Information #: 2 Payer: [facility] Member Number: NA Policy Number: NA Group Number: NA
== END 2024-11-08 10:47 | disposition home or self-care (01) ==
LOC: HO.HCS 09:47
PROVIDERS: PCP Internal Medicine; Visit Provider Internal Medicine Cardiovascular Disease
DX: I25.10 Atherosclerotic heart disease of native coronary artery without angina pectoris (principal); Z95.0 Presence of cardiac pacemaker; Z86.73 Personal history of transient ischemic attack (TIA), and cerebral infarction without residual deficits; R00.2 Palpitations
CPT/HCPCS: 93280; 99214; G2211

== ENCOUNTER → 2024-11-08 09:46 | Outpatient (BNVA) | payer MEDICARE, MEDICAID, SELFPAY | PROVIDERS: PCP Internal Medicine; Visit Provider Internal Medicine Cardiovascular Disease | DX: I25.10 Atherosclerotic heart disease of native coronary artery without angina pectoris (principal); R00.2 Palpitations; Z95.0 Presence of cardiac pacemaker; Z86.73 Personal history of transient ischemic attack (TIA), and cerebral infarction without residual deficits | CPT/HCPCS: 93280; 99212 ==

== ENCOUNTER 2024-11-09 09:03 | Outpatient (AMB) | payer MEDICARE, MEDICAID, SELFPAY ==
--- NOTE | 2024-11-09 09:11 | MHC.OFFVISCO ---
Intake Intake Visit Reasons: Anticoagulation Allergies vancomycin [VANCOMYCIN] Allergy (Intermediate, Verified 11/02/24 09:00) ITCHING/RASH metoclopramide [From Reglan] Adverse Reaction (Intermediate, Verified 11/02/24 09:00) Nausea and Vomiting Medication List - Last Reconciled 11/09/24 by Anny Orta, RN albuterol sulfate 90 mcg/actuation 2 puffs inhalation Q4H PRN albuterol sulfate 2.5 mg inhalation Q8H PRN amlodipine 5 mg PO DAILY atorvastatin 40 mg PO DAILY blood sugar diagnostic As directed carisoprodol (Soma) 350 mg PO TID PRN cholecalciferol (vitamin D3) 25 mcg PO DAILY clopidogrel (Plavix) 75 mg PO DAILY cyanocobalamin (vitamin B-12) PO diclofenac sodium 1% topical enoxaparin mg See Protocol subcut ezetimibe 10 mg PO DAILY famotidine 20 mg PO BEDTIME ferrous sulfate 325 mg PO DAILY food supplemt, lactose-reduced (Boost) PO hydrocortisone 2.5% appl topical lancets As directed magnesium oxide 400 mg PO DAILY metoprolol succinate ER (Toprol XL) 100 mg PO DAILY ondansetron HCl 8 mg PO Q12H PRN oxcarbazepine 300 mg PO BID oxycodone 5 mg PO BEDTIME PRN pramipexole 1 mg PO tirzepatide (Mounjaro) mg subcut umeclidinium-vilanterol 62.5-25 mcg/actuation (Anoro Ellipta) inhalation DAILY warfarin 5 mg See Protocol PO DIRECTED Nursing Note INR: 2.9- in therapeutic range of 2-3 Medications and supplements reviewed- metoprolol increased to 100mg dly per cardiology No changes in health, diet, medications, or supplements, Denies any signs and symptoms of bleeding or bruising or clotting. Bleeding, bruising, clotting discussed Nutritional guidance given Dose: 5mg x 3, 7.5mg x 4 F/U INR: 11/23/24 Patient verbalizes understanding of instructions given pt prev had bronch/biopsy on 10/26/24, Now pt scheduled for needle biopsy on 11/20/24- she states pulm req 5 day hold with lovenox bridging call to pcp to obtain pre/post instructions- spoke to blaze, she will fax instructions to acs Anti-Coag Initial Assessment Social Hx Patient Tobacco Use Status: Current everyday Tobacco user Tobacco use type: Cigarette alcohol intake: never Coding Level of Care Code Est Patient Level 2 Diagnoses Current use of anticoagulant therapy Z79.01 Results AMB INR Fingerstick AMB INR Fingerstick 2.9 Last Edit by Anny Orta RN on 11/09/24 09:15 interface delay Assessment & Plan Assessment & Plan (1) Current use of anticoagulant therapy: Onset Date: ~2019 Comment: (due to Stroke with PFO and factor 5 leiden) Code(s): 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
[2024-11-09 09:20] LABS: Prothrombin Time Whole Bld POC 34.8 sec (11.1-13.5); ~PT, ~INR - Anti Coag Clinic 2.9 (0.9-1.1)
== END 2024-11-09 09:43 | disposition home or self-care (01) ==
LOC: HO.ACS 09:03
PROVIDERS: PCP Internal Medicine; Visit Provider Internal Medicine Medical Oncology
DX: Z79.01 Long term (current) use of anticoagulants (principal)

== ENCOUNTER → 2024-11-09 09:03 | Outpatient (BNVA) | payer MEDICARE, MEDICAID, SELFPAY | PROVIDERS: PCP Internal Medicine; Visit Provider Internal Medicine Medical Oncology | DX: Z86.73 Personal history of transient ischemic attack (TIA), and cerebral infarction without residual deficits (principal); Z79.01 Long term (current) use of anticoagulants; Z51.81 Encounter for therapeutic drug level monitoring | CPT/HCPCS: 85610; 99212 ==

== ENCOUNTER 2024-11-15 09:05 | Outpatient (AMB) | payer MEDICARE, MEDICAID, SELFPAY ==
--- NOTE | 2024-11-15 09:36 | MHC.OFFVISCO ---
Intake Intake Visit Reasons: Anticoagulation Allergies vancomycin [VANCOMYCIN] Allergy (Intermediate, Verified 11/15/24 09:21) ITCHING/RASH metoclopramide [From Reglan] Adverse Reaction (Intermediate, Verified 11/15/24 09:21) Nausea and Vomiting Medication List - Last Reconciled 11/15/24 by Catherine Bales, RN albuterol sulfate 90 mcg/actuation 2 puffs inhalation Q4H PRN albuterol sulfate 2.5 mg inhalation Q8H PRN amlodipine 5 mg PO DAILY atorvastatin 40 mg PO DAILY blood sugar diagnostic As directed carisoprodol (Soma) 350 mg PO TID PRN cholecalciferol (vitamin D3) 25 mcg PO DAILY clopidogrel (Plavix) 75 mg PO DAILY cyanocobalamin (vitamin B-12) PO diclofenac sodium 1% topical enoxaparin mg See Protocol subcut ezetimibe 10 mg PO DAILY famotidine 20 mg PO BEDTIME ferrous sulfate 325 mg PO DAILY food supplemt, lactose-reduced (Boost) PO hydrocortisone 2.5% appl topical lancets As directed magnesium oxide 400 mg PO DAILY metoprolol succinate ER (Toprol XL) 100 mg PO DAILY ondansetron HCl 8 mg PO Q12H PRN oxcarbazepine 300 mg PO BID oxycodone 5 mg PO BEDTIME PRN pramipexole 1 mg PO tirzepatide (Mounjaro) mg subcut umeclidinium-vilanterol 62.5-25 mcg/actuation (Anoro Ellipta) inhalation DAILY warfarin 5 mg See Protocol PO DIRECTED Nursing Note INR: 3.0 in therapeutic range of 2-3 Pt will be having a Lung biopsy on 11/20/24. Orders received by Dr Merrill. Pt is bridging with lovenox. Medications and supplements reviewed No changes in health, diet, medications, or supplements, Denies any signs and symptoms of bleeding or bruising or clotting. Bleeding, bruising, clotting discussed Nutritional guidance given to avoid greens when restarting warfarin after the procedure. Dose: Last dose of warfarin was yesterday. Will hold warfarin for 5 days and to start lovenox 60mg tomorrow in PM then bid. Last dose of lovenox will be the AM dose the day before the procedure. Per Dr Merrill, when restarting warfarin, pt will take 7.5mg daily F/U INR: 11/23/24 Patient verbalizes understanding of instructions given Anti-Coag Initial Assessment Social Hx Patient Tobacco Use Status: Current everyday Tobacco user Tobacco use type: Cigarette alcohol intake: never Coding Level of Care Code Est Patient Level 1 Diagnoses Current use of anticoagulant therapy Z79.01 Assessment & Plan Assessment & Plan (1) Current use of anticoagulant therapy: Onset Date: ~2019 Comment: (due to Stroke with PFO and factor 5 leiden) Code(s): Z79.01 - penitentiary (current) use of anticoagulants Category: Medical
--- OUTSIDE RECORDS SUMMARY | 2024-11-15 09:45 | XMS_ITS | Continuity of Care Document ---
Author Organization [facility] Pulmonary M edicine Address [address] [place] [address]- Care Team Providers Care Wastewater Plant Civil Engineer Name Role Phone Garfield MCKAY, Manuel Primary Care Physician [place] [facility] [place] 11/14/24 [facility] Pul[facility] [address] [place] [id number] Encounter Type: Triage Allergies, Adverse Reactions, Alerts [...] 2:12:00 PM EDT, Route to Pharmacy Electronically, [facility]/pharmacy #[id number], Partial fill upon patient requestif the prescription [...] 2:20:00 PM EST, Route to Pharmacy Electronically, [facility]/pharmacy #[id number], 152, cm, 06/29/24 13:25:00 EST, Height, [...] Maintenance, 04/24/24 11:17:00 AM EDT, [id number], 152, cm, 01/31/24 13:16:00 EDT, Height Start [...] Team Personnel Name: Manuel Merrill MD Position: [facility] Outreach Member Role: PCP Address: [address] [place] [address] [place] [address]- Telecom: Name: Tawanna Mckeon Position: S Outreach Member Role: Lifetime Consulting Physician Care Team Related Persons Name: MITCHELL SMITH Name: VICENTE SMITH Insurance Providers Guarantor name: MELVIN SMITH Health Plan Information #: 1 Payer: MEDICARE PART B OUTPT Member Number: NA Policy Number: NA Group Number: NA Health Plan Information #: 2 Payer: [facility] Member Number: NA Policy Number: NA Group Number: NA
== END 2024-11-15 09:49 | disposition home or self-care (01) ==
LOC: HO.ACS 09:05
PROVIDERS: PCP Internal Medicine; Visit Provider Internal Medicine Medical Oncology
DX: Z79.01 Long term (current) use of anticoagulants (principal)

== ENCOUNTER → 2024-11-15 09:05 | Outpatient (BNVA) | payer MEDICARE, MEDICAID, SELFPAY | PROVIDERS: PCP Internal Medicine; Visit Provider Internal Medicine Medical Oncology | DX: Z86.73 Personal history of transient ischemic attack (TIA), and cerebral infarction without residual deficits (principal); Z79.01 Long term (current) use of anticoagulants; Z51.81 Encounter for therapeutic drug level monitoring | CPT/HCPCS: 85610; 99211 ==

== ENCOUNTER 2024-11-23 09:05 | Outpatient (AMB) | payer MEDICARE, MEDICAID, SELFPAY ==
--- OUTSIDE RECORDS SUMMARY | 2024-11-23 09:19 | XMS_ITS | Continuity of Care Document ---
Author Organization [facility] ter Address [address] [place] [id number] Care Team Providers Care Draughtsman Name Role Phone Manuel Merrill MD Primary Care Physician Encounter [facility] [place](s): 11/20/24 - 11/20/[address] [id number] Discharge Disposition: A-D/C Home Attending Physician: Mikie Kendrick MD Admitting Physician: Mikie Kendrick MD Referring Physician: Mikie Kendrick MD Encounter [...] 2:12:00 PM EDT, Route to Pharmacy Electronically, [facility]/pharmacy #[id number], Partial fill upon patient requestif the prescription [...] 2:20:00 PM EST, Route to Pharmacy Electronically, [facility]/pharmacy #[id number], 152, cm, 06/29/24 13:25:00 [...] Maintenance, 04/24/24 11:17:00 AM EDT, [id number], 152, cm, 01/31/24 13:16:00 EDT, Height Start [...] Exam Date Time Procedure Performing Provider Status 11/20/24 3:10 PM Chest Single Frontal View Katia Wolfe; Auth (Verified) Notes: (Chest Single Frontal View) Reason For Exam: Postop RESULT: Chest Single Frontal View Chest Single Frontal View Reason: Postop; Clinical Question(s): Postop; Special Instructions: Evaluate for post procedure complication ? pneumothorax, hemothorax, reexpansion edema. Evaluate for evacuation of effusion. COMPARISON: Multiple priors with the most recent dated 11/20/2024 at 1226 hours. FINDINGS: LINES AND TUBES: Left-sided dual lead pacer/AICD in place unchanged. LUNGS AND PLEURA: Ill-defined opacity in the right apex again seen consistent with known small round lung nodule status post thoracic thoracic biopsy today. Clear left lung. Normal pulmonary vascularity. No pleural effusion. No right apical pneumothorax is seen. HEART, MEDIASTINUM AND MARTHA: Heart is normal in size. Normal mediastinal and hilar contour. BONES AND SOFT TISSUES: No acute abnormality. Mild degenerative change both shoulders. IMPRESSION: No right apical pneumothorax is seen. WSN: [id number] Ordering Physician: Keisha Ochoa Dictated By: Josh Gomes MD, V Dictated Date/Time: 11/20/24 3:24 pm Reviewed By: Josh Gomes MD, V Signed By: Josh Gomes MD, V Signed Date/Time: 11/20/24 3:24 pm Transcribed By: GAIL Transcribed Date/Time: 11/20/24 3:21 pm * Exam Date Time Procedure Performing Provider Status 11/20/24 12:33 PM Chest Single Frontal View Eze Ceja; Kary (Verified) Notes: (Chest Single Frontal View) Reason For Exam: Postop RESULT: Chest Single Frontal View Chest Single Frontal View Reason: Postop; Clinical Question(s): Postop; Special Instructions: Evaluate for post procedure complication ? pneumothorax, hemothorax, reexpansion edema. Evaluate for evacuation of effusion. COMPARISON: 10/26/2024. CT chest without contrast dated 10/05/2024 at 0854 hours. FINDINGS: LINES AND TUBES: Dual-lead left-sided pacer/AICD in place unchanged with intact leads. LUNGS AND PLEURA: There is a small right apical lung mass measuring about 1.72 cm in diameter which was the target oftransthoracic biopsy earlier today. The right lung is clear. Normal pulmonary vascularity. No pleural effusion. No pneumothorax. In particular no right-sided pneumothorax is seen. HEART, MEDIASTINUM AND MARTHA: Heart is normal in size. Normal mediastinal and hilar contour. BONES AND SOFT TISSUES: No acute abnormality. Mild degenerative change both shoulders. IMPRESSION: No right-sided pneumothorax is seen. WSN: [id number] Ordering Physician: Keisha Ochoa Dictated By: Josh Gomes MD, V Dictated Date/Time: 11/20/24 12:51 p Reviewed By: Josh Gomes MD, V Signed By: Josh Gomes MD, V Signed Date/Time: 11/20/24 12:51 pm Transcribed By: CSB Transcribed Date/Time: 11/20/24 12:46 pm * Exam Date Time Procedure Performing Provider Status 11/20/24 11:40 AM IR End of Case Report Aut h (Verified) IR End of Case Report * Exam Date Time Procedure Performing Provider Status 11/20/24 11:[address] Guidance Needle Biopsy Consuelo Yanez (Verified) Notes: (CT Guidance Needle Biopsy) Reason For Exam: RUL NODULE CT Guidance Needle Biopsy Patient: MELVIN SMITH Study Date: 11/20/2024 Performing: Keisha Ochoa MD Referring: : 1955 Age: 69 Gender: FEMALE PROCEDURE: CT-guided right lung nodule biopsy. INDICATION: 69-year-old female with past medical history of COPD, type 2 diabetes mellitus, hypertension, obstructive sleep apnea and tobacco use with PET/CT from 10/25/2024 demonstrating 1.3 cm nodule at the posterior apex of the right lung demonstrating moderate FDG uptake. Patient underwent robotic bronchoscopy and biopsy of the right upper lobe nodule, however biopsy was negative for malignancy which may represent a false negative result. Therefore, patient was referred to interventional radiology for CT-guided biopsy of the right upper lobe pulmonary nodule. LEAD DIE MOLDER(S): Keisha Ochoa MD ANESTHESIA: 1% lidocaine was administered for local anesthesia. TECHNIQUE: The procedure, risks, and alternatives were discussed with the patient and all questions were answered. Written informed consent obtained. Accompanying paperwork was verified for accuracy. Directed history and physical exam performed prior to the procedure. Medication reconciliation performed by nursing personnel. The patient was brought to the procedure suite and positioned right decubitus on the table. A critical pause was performed with assisting personnel just prior to the procedure with the patient's identity confirmed using 2 identifiers and confirming procedure site and side. Pre procedure limited CT of the chest was performed which demonstrates right upper lobe pulmonary nodule, similar to prior exam. An appropriate site was selected and marked. The skin was draped and prepped in usual sterile fashion. Procedure was performed using a cap, sterile gown, sterile gloves, a large sterile sheet, handhygiene and 2% chlorhexidine for cutaneous antisepsis. 1% lidocaine was administered for local anesthesia. Under intermittent CT fluoroscopy guidance, a 19 gauge introducer needle was advanced to the periphery of the lung nodule. The inner stylette was removed and coaxially, a 20 gauge biopsy needle was advanced into the lung nodule. Next, three core biopsy samples were obtained and submitted to pathology. All needles were removed and hemostasis was achieved. A sterile dressing was applied. Post procedure limited CT images were obtained which demonstrate no evidence of pneumothorax. The estimated blood loss was minimal. The patient tolerated the procedure well without immediate post procedure complications. PLAN: Routine post procedure monitoring. Chest radiographs immediately and 2 hours post procedure to assess for delayed complications. IMPRESSION: CT-guided biopsy of right upper lobe pulmonary nodule. Agent Dose Route Time By Versed 1 mg IV 11:40:52 MC Versed 1 mg IV 11:46:27 MC Signed By Keisha Ochoa MD On 11/20/2024 5:54:36 PM Signed By Keisha Ochoa MD On 11/20/2024 5:54:36 PM Keisha Ochoa MD Equipment : [employer] Biopsy tray [facility] 20 X 11 Dictated By: Keisha Ochoa MD Dictated Date/Time: 11/20/24 11:40 a Reviewed By: Keisha Ochoa MD Signed By: Keisha Ochoa MD Signed Date/Time: 11/20/24 11:40 am Transcribed By: CAROL Transcribed Date/Time: 11/20/24 11:40 am Vital Signs Most recent to oldest [Reference Range]: 1 Height 150 cm (11/20/24 8:28 AM) Weight 58 kg (11/20/24 8:28 AM) Oxygen Saturation [94-100 %] 97 % (11/20/24 8:35 AM) Pulse Rate [55-90 bpm] 81 bpm (11/20/24 8:35 AM) Blood Pressure [90-138/55-84 mm Hg] 127/ 56mm Hg (11/20/24 8:35 AM) Respiratory Rate [16-30 br/min] 18 br/mi n (11/20/24 8:35 AM) Temperature [96.8-100.4 DegF] 98.1 DegF (11/20/24 8:35 AM) Mode of Delivery (Oxygen) Room air (11/20/24 8:35 AM) Blood pressure sites Arm, left (11/20/24 8:35 AM) Temperature Route Temporal (11/20/24 8:35 AM) Dry Weight 58 kg (11/20/24 8:28 AM) Social History Social History Type Response Tobacco Other: 1/2ppd. Sex Sex Representation Female (finding) Hospital Progress note * Antonia Whitt RN: PERFORM, SIGN, VERIFY, SIGN, MODIFY, SIGN, MODIFY, SIGN, MODIFY Event Display: Progress Note Hospital Authored Date: Patient: MELVIN SMITH Age: 69 years Sex: Female : 1955 Associated Diagnoses: None Author: Antonia Whitt RN Findings Nursing Data Vital Signs : VITAL SIGNS SECTION 11/20/2024 8:35 EDT Temperature 98.1 DegF Temperature Route Temporal Pulse Rate 81 bpm Respiratory Rate 18 br/min Systolic Blood Pressure 127 mm Hg Diastolic Blood Pressure 56 mm Hg Blood pressure sites Arm, left Mean Arterial Pressure 80 mm Hg Pulse Pressure 71 mm Hg Oxygen Saturation 97 % Mode of Delivery (Oxygen) Room air . Narrative/Incidental Biopsy Pt arrived on unit at 0830 NPO status confirmed Labs sent . Patient aware of planned procedure. Call santa within . * Antonia Whitt RN: PERFORM Event Display: Progress Note Hospital Authored Date: patient returned from planned procedure VSS site clean dry and intact no s/s of distress * Antonia Whitt RN: PERFORM Event Display: Progress Note Hospital Authored Date: [id number] second xray accomplished and read patient will check in with coumadin clinic for dosages per discharge order patient IV d/cd and patient discharged * Antonia Whitt RN: PERFORM Event Display: Progress Note Hospital Authored Date: Patient discharged demonstrates good knowledge regarding discharge instructions Note * Antonia Whitt RN: PERFORM Event Display: Discharge/Transfer Note Hospital Authored Date: Nursing Discharge Note Entered On: 11/20/2024 16:16 EDT Performed On: 11/20/2024 16:16 EDT by Antonia Whitt RN Nursing Discharge Note 2 Discharge Time : 11/20/2024 16:13 EDT Discharge Level of Care at Discharge : Home/Usp/Foster Care Patient Left Unit Via : Wheelchair Patient Accompanied Off Unit with : Significant other DC Instructions Provided & Signed by Pt : Yes Patient Understands D/C Instructions : Yes Patient Instructions Discharge Signed : Yes Did Pt have Specialty Bed or Wound Vac : No Antonia Whitt RN - 11/20/2024 16:16 EDT Patient Care team information Care Team Personnel Name: Manuel Merrill MD Position: [facility] Outreach Member Role: PCP Address: [address] [place] [address] Internal Medicine [address] Telecom: Name: Tawanna Mckeon Position: [facility] Outreach Member Role: [employer] Consulting Physician Name: Estuardo Zimmer RN Position: [facility] RN Member Role: Primary Care Nurse Care Team Related Persons Name: [place] SMITH Name: VICENTE SMITH Insurance Providers Guarantor name: MELVIN SMITH Health Plan Information #: 1 Payer: MEDICARE PART B OUTPT Member Number: [id number] Policy Number: NA Group Number: NA Health Plan Information #: 2 [facility] Member Number: [id number] Policy Number: NA Group Number: NA
[2024-11-23 09:25] LABS: Prothrombin Time Whole Bld POC 15.3 sec (11.1-13.5); ~PT, ~INR - Anti Coag Clinic 1.3 (0.9-1.1)
--- NOTE | 2024-11-23 09:40 | MHC.OFFVISCO ---
Intake Intake Visit Reasons: Anticoagulation Allergies vancomycin [VANCOMYCIN] Allergy (Intermediate, Verified 11/23/24 09:18) ITCHING/RASH metoclopramide [From Reglan] Adverse Reaction (Intermediate, Verified 11/23/24 09:18) Nausea and Vomiting Medication List - Last Reconciled 11/23/24 by Vonda Cam RN albuterol sulfate 90 mcg/actuation 2 puffs inhalation Q4H PRN albuterol sulfate 2.5 mg inhalation Q8H PRN amlodipine 5 mg PO DAILY atorvastatin 40 mg PO DAILY blood sugar diagnostic As directed carisoprodol (Soma) 350 mg PO TID PRN cholecalciferol (vitamin D3) 25 mcg PO DAILY clopidogrel (Plavix) 75 mg PO DAILY cyanocobalamin (vitamin B-12) PO diclofenac sodium 1% topical enoxaparin mg See Protocol subcut ezetimibe 10 mg PO DAILY famotidine 20 mg PO BEDTIME ferrous sulfate 325 mg PO DAILY food supplemt, lactose-reduced (Boost) PO hydrocortisone 2.5% appl topical lancets As directed magnesium oxide 400 mg PO DAILY metoprolol succinate ER (Toprol XL) 100 mg PO DAILY ondansetron HCl 8 mg PO Q12H PRN oxcarbazepine 300 mg PO BID oxycodone 5 mg PO BEDTIME PRN pramipexole 1 mg PO tirzepatide (Mounjaro) mg subcut umeclidinium-vilanterol 62.5-25 mcg/actuation (Anoro Ellipta) inhalation DAILY warfarin 5 mg See Protocol PO DIRECTED Nursing Note INR: 1.3 OUT of range Medications and supplements reviewed s/p lung bx - results pending Denies any signs and symptoms of bleeding or bruising or clotting. Bleeding, bruising, clotting discussed Nutritional guidance given - avoid all greens and boost or ensure, eat orange and reds to help raise the INR Dose:she already had booster doses this week / booster another 2.5mg to = 10mg today then resume usual dose 5mg x 3 days/ 7.5mg x 4 days F/U INR: 11/26/2024 Patient verbalizes understanding of instructions given with accurate read back t/c to PCP with pt status update spoke with nurse triage line regarding pt status to convey to PCP- left msg as this and expected low INR Anti-Coag Initial Assessment Social Hx Patient Tobacco Use Status: Current everyday Tobacco user Tobacco use type: Cigarette alcohol intake: never Coding Level of Care Code Est Patient Level 1 Diagnoses Current use of anticoagulant therapy Z79.01 Results AMB INR Fingerstick AMB INR Fingerstick 1.3 Last Edit by Vonda Cam RN on 11/23/24 09:35 manual entry Assessment & Plan Assessment & Plan (1) Current use of anticoagulant therapy: Onset Date: ~2019 Comment: (due to Stroke with PFO and factor 5 leiden) Code(s): Z79.01 - medical terminologist (current) use of anticoagulants Category: Medical
== END 2024-11-23 09:48 | disposition home or self-care (01) ==
LOC: HO.ACS 09:05
PROVIDERS: PCP Internal Medicine; Visit Provider Internal Medicine Medical Oncology
DX: Z79.01 Long term (current) use of anticoagulants (principal)

== ENCOUNTER → 2024-11-23 09:05 | Outpatient (BNVA) | payer MEDICARE, MEDICAID, SELFPAY | PROVIDERS: PCP Internal Medicine; Visit Provider Internal Medicine Medical Oncology | DX: Z86.73 Personal history of transient ischemic attack (TIA), and cerebral infarction without residual deficits (principal); Z79.01 Long term (current) use of anticoagulants; Z51.81 Encounter for therapeutic drug level monitoring | CPT/HCPCS: 85610; 99211 ==

== ENCOUNTER 2024-11-25 17:33 | Emergency (ER) | payer MEDICARE, MEDICAID, SELFPAY ==
--- NOTE | ~2024-11-25 | XR_ITS ---
CLINICAL HISTORY: chest pain 2 view chest x-ray Comparison: CR/SR - XR CHEST 1V - 01/24/22 18:00 EDT Findings: No consolidation or effusion. Left subclavian pacemaker with leads in the right atrium and right ventricle. Normal heart size. Aortic atherosclerosis. No acute fracture. IMPRESSION: 1. No acute cardiopulmonary findings. This document has been electronically signed by: Inga Torres MD on 11/25/2024 19:36:50
[2024-11-25 17:42] VITALS: BP 146/63; PULSE 93; RESP 19; TEMP 37.2; O2SAT 93; BMI 24.8
--- NOTE | 2024-11-25 17:42 | ED.GENADULT ---
HPI - General Adult General Chief complaint: General Medical Stated complaint: problems breathing Related Data Home Medications ?Medication ?Instructions ?Recorded ?Confirmed albuterol sulfate 90 mcg/actuation 2 puff inhalation Q4H PRN 07/02/20 11/26/24 aerosol inhaler Shortness Of Breath atorvastatin 40 mg tablet 40 mg PO DAILY 07/21/20 11/26/24 cholecalciferol (vitamin D3) 25 25 mcg PO DAILY 12/16/20 11/26/24 mcg (1,000 unit) capsule blood sugar diagnostic #10 ea 01/14/21 11/26/24 albuterol sulfate 2.5 mg/3 mL 2.5 mg inhalation Q8H PRN wheezing 03/05/22 11/26/24 (0.083 %) solution for nebulization warfarin 5 mg tablet 5 mg PO DIRECTED 03/23/22 11/26/24 ondansetron HCl 8 mg tablet 8 mg PO Q12H PRN nausea and 09/08/22 11/26/24 vomiting food supplemt, lactose-reduced PO 11/11/22 11/26/24 [Boost] hydrocortisone 2.5 % topical cream appl topical 12/31/22 11/26/24 oxcarbazepine 150 mg tablet 300 mg PO BID 12/31/22 11/26/24 oxycodone 5 mg tablet 5 mg PO BEDTIME PRN 05/23/23 11/26/24 diclofenac sodium 1 % topical gel topical 10/19/23 11/26/24 carisoprodol 350 mg tablet (Soma) 350 mg PO TID PRN 06/07/24 11/26/24 magnesium oxide 400 mg PO DAILY 07/04/24 11/26/24 umeclidinium 62.5 mcg-vilanterol inhalation DAILY 08/16/24 11/26/24 25 mcg/actuation powdr for inhalation (Anoro Ellipta) tirzepatide 10 mg/0.5 mL mg subcut 10/02/24 11/26/24 subcutaneous pen injector (Mounjaro) cyanocobalamin (vitamin B-12) PO 10/09/24 11/26/24 lancets 33 gauge #100 ea 10/12/24 11/26/24 pramipexole 1 mg tablet 1 mg PO 11/08/24 11/26/24 Previous Rx's ?Medication ?Instructions ?Recorded famotidine 20 mg tablet 20 mg PO BEDTIME #90 tabs 08/30/24 amlodipine 5 mg tablet 5 mg PO DAILY #90 tabs 08/31/24 ferrous sulfate 325 mg (65 mg 325 mg PO DAILY #90 tabs 10/01/24 iron) tablet ezetimibe 10 mg tablet 10 mg PO DAILY #90 tabs 10/08/24 metoprolol succinate 100 mg 100 mg PO DAILY #30 tabs 11/08/24 tablet,extended release 24 hr (Toprol XL) clopidogrel 75 mg tablet 75 mg PO DAILY #90 tabs 11/23/24 Allergies Allergy/AdvReac Type Severity Reaction Status Date / Time vancomycin [VANCOMYCIN] Allergy Intermediate ITCHING/ELOY Verified 11/26/24 08:14 H metoclopramide [From Reglan] AdvReac Intermediate Nausea and Verified 11/26/24 08:14 Vomiting PMFSH Past Medical History Medical History Coronary artery calcification seen on CAT scan History of colon polyps (~2009) Type II diabetes mellitus, well controlled Personal history of nicotine dependence Factor 5 Leiden mutation, heterozygous Obstructive sleep apnea on CPAP (~2008) Osteopenia (~2018) Pacemaker (~2021) History of CVA (cerebrovascular accident) (~2019) Hyperlipidemia PFO (patent foramen ovale) (~2019) HTN (hypertension) COPD (chronic obstructive pulmonary disease) Current use of anticoagulant therapy (~2019) Surgical History Stented coronary artery S/P cardiac cath Hx of cystoscopy Hx of blepharoplasty History of esophagogastroduodenoscopy (EGD) History of colonoscopy History of unilateral oophorectomy History of cholecystectomy (~2000) History of bladder surgery (~1999) History of pacemaker (~2021) Family History Family History Mother Stroke Multiple sclerosis Diabetes Father CAD (coronary artery disease) Social History Social History Alcohol intake: never Patient Tobacco Use Status: Current everyday Tobacco user Tobacco use type: Cigarette Cigarettes Per Day: 4 Years Smoked: 40 +/- e-Cigarette/Vaping Use: Currently Using service: No Current occupational status: retired Physical Exam ED Vital Signs: BMI result Body Mass Index 24.8 Course Course Course Narrative: RME performed by Jess Boland PA-C. Patient is a 69 year old assigned female at presenting to the emergency department with right lung pain. Patient states that she is having right sided lung pain after a biopsy on 11/19/2024. Patient states that she was sitting, drinking a Boost drink, and began to have right sided back pain that is worse with breathing. Patient's limited physical exam performed in triage showed a non-toxic individual in no acute respiratory distress. Detailed physical exam and review of systems are deferred to the over short and damage clerk. EKG, labs, imaging, and swabs ordered. Patient placed back in the waiting room pending room availability and results. Patient left the department without completing treatment. Patient left the department before myself or any of the other emergency department clinicians could explain to or review with the patient; physical exam findings, test results, need or lack there of for additional testing, need or lack there of for a procedure to be performed, need or lack there of for hospital admission / transfer, need or lack there of for prescription medication, treatment options, or a treatment plan. Medical Decision Making Lab Data 11/25/24 18:00 11/25/24 18:00 Labs: Lab Results 11/25/24 Range/Units 18:00 WBC 11.2 H (4.8-10.8) X10*3/uL RBC 4.31 (4.20-5.50) X10*6/uL Hgb 13.5 (12.0-16.0) g/dl Hct 38.8 (37.0-47.0) % MCV 90.0 (80.0-98.0) fL MCH 31.3 (27.0-33.0) pg MCHC 34.8 (31.0-35.0) g/dl RDW 14.5 (11.0-16.0) % Plt Count 255 (160-400) X10*3/uL MPV 9.0 L (9.4-12.3) fL Immature Gran % (Auto) 0.4 (0.0-0.4) % Neut % (Auto) 61.5 (45-73) % Lymph % (Auto) 29.0 (20-40) % [place] % (Auto) 7.4 (2-11) % Eos % (Auto) 1.3 (0-4) % Baso % (Auto) 0.4 (0-2) % Lymph # (Auto) 3.2 (1.2-4.9) X10*3/uL [place] # (Auto) 0.8 (0.1-1.2) X10*3/uL Eos # (Auto) 0.2 (0.0-0.4) X10*3/uL Baso # (Auto) 0.1 (0.0-0.2) X10*3/uL Abs Immat Gran (auto) 0.04 H (0.00-0.03) X10*3/uL Absolute Neuts (auto) 6.9 (2.0-8.3) x10*3/uL Absolute Nucleated RBC 0.000 (0.0-0.012) X10*3/uL Nucleated RBC % (auto) 0.0 (0.0-0.2) /100WBC Sodium 143 (135-145) mmol/L Potassium 3.8 (3.3-5.1) mmol/L Chloride 111 H (96-108) mmol/L Carbon Dioxide 20 L (22-29) mmol/L Anion Gap 16 (12-20) BUN 16 (9-16) mg/dL Creatinine 0.81 (0.5-1.4) mg/dL Estim Creat Clear Calc 50.6 Estimated GFR > 60 Random Glucose 152 H (60-115) mg/dL Calcium 9.5 (8.4-10.2) mg/dL Magnesium 1.8 (1.6-2.6) mg/dL Total Bilirubin 0.2 (0.0-1.0) mg/dL AST 23 (5-31) U/L ALT 23 (0-31) U/L Alkaline Phosphatase 79 (39-117) U/L Troponin I High Sens < 2.7 (<3.5-17.0) ng/L Total Protein 7.4 (6.5-8.0) g/dL Albumin 4.2 (3.5-5.0) g/dL Influenza Type A (PCR) NEGATIVE (Negative) Influenza Type B (PCR) NEGATIVE (Negative) RSV RNA Qual (PCR) NEGATIVE (Negative) SARS-CoV-2 RNA (RT-PCR) NEGATIVE (Negative) Discharge Plan Discharge Clinical Impression: SOB (shortness of breath) Patient Disposition: Left W/O Completing Treatment Prescriptions: No Action famotidine 20 mg tablet 20 mg PO BEDTIME Qty: 90 1RF amlodipine 5 mg tablet 5 mg PO DAILY Qty: 90 3RF ferrous sulfate 325 mg (65 mg iron) tablet 325 mg PO DAILY Qty: 90 0RF ezetimibe 10 mg tablet 10 mg PO DAILY Qty: 90 3RF clopidogrel 75 mg tablet 75 mg PO DAILY Qty: 90 3RF (DME) blood sugar diagnostic Strip See Rx Instructions Not Applicable .MEDSUPPLY Qty: 10 Rx Instructions: As directed atorvastatin 40 mg tablet 40 mg PO DAILY albuterol sulfate 90 mcg/actuation HFA aerosol inhaler 2 puff inhalation Q4H PRN (Reason: Shortness Of Breath) cholecalciferol (vitamin D3) 25 mcg (1,000 unit) capsule 25 mcg PO DAILY oxycodone 5 mg tablet 5 mg PO BEDTIME PRN warfarin 5 mg tablet 5 mg PO DIRECTED Protocol: Dose Management Condition: Tuesday (Week One) Dose/Route: 5 mg Instruction: 1 x 5 mg milliliter Condition: Tuesday Dose/Route: 7.5 mg Instruction: 1.5 x 5 mg milliliters Condition: Tuesday Dose/Route: 5 mg Instruction: 1 x 5 mg milliliter Condition: Tuesday Dose/Route: 7.5 mg Instruction: 1.5 x 5 mg milliliters Condition: Dose/Route: 5 mg Instruction: 1 x 5 mg milliliter Condition: Tuesday Dose/Route: 7.5 mg Instruction: 1.5 x 5 mg milliliters Condition: Tuesday Dose/Route: 7.5 mg Instruction: 1.5 x 5 mg milliliters Condition: Tuesday (Week Two) Dose/Route: 5 mg Instruction: 1 x 5 mg milliliter Condition: Tuesday Dose/Route: 7.5 mg Instruction: 1.5 x 5 mg milliliters Condition: Tuesday Dose/Route: 5 mg Instruction: 1 x 5 mg milliliter Condition: Tuesday Dose/Route: 7.5 mg Instruction: 1.5 x 5 mg milliliters Condition: Dose/Route: 5 mg Instruction: 1 x 5 mg milliliter Condition: Tuesday Dose/Route: 7.5 mg Instruction: 1.5 x 5 mg milliliters Condition: Tuesday Dose/Route: 7.5 mg Instruction: 1.5 x 5 mg milliliters Protocol Text: Adjustment Start Date: Tuesday11/26/24 INR Value: 2.2 INR Date: 11/26/24 Recheck Date: 12/06/24 Additional Instructions: REVIEW FOOD LIST WEEKLY, EAT A MIX OF FRUITS AND VEGETABLES - WAIT ANOTHER DAY TO HAVE GREENS OR BOOST SO INR STAYS ABOUT 2.0 albuterol sulfate 2.5 mg /3 mL (0.083 %) solution for nebulization 2.5 mg inhalation Q8H PRN (Reason: wheezing) ondansetron HCl 8 mg tablet 8 mg PO Q12H PRN (Reason: nausea and vomiting) food supplemt, lactose-reduced [Boost] PO Patient Comments: DRINKING 5-6 / WEEK DUE TO DECREASED APPETITE oxcarbazepine 150 mg tablet 300 mg PO BID hydrocortisone 2.5 % cream topical diclofenac sodium 1 % gel topical pramipexole 1 mg tablet 1 mg PO magnesium oxide 400 mg magnesium tablet 400 mg PO DAILY cyanocobalamin (vitamin B-12) PO metoprolol succinate [Toprol XL] 100 mg tablet extended release 24 hr 100 mg PO DAILY Qty: 30 5RF carisoprodol [Soma] 350 mg tablet 350 mg PO TID PRN Anoro Ellipta 62.5-25 mcg/actuation blister with device inhalation DAILY (DME) lancets 33 gauge misc See Rx Instructions .ROUTE DAILY Qty: 100 Rx Instructions: As directed Johnny 10 mg/0.5 mL pen injector subcut Discharge Date/Time: 11/25/24 20:11
--- NOTE | 2024-11-25 17:44 | ECG_ITS ---
Test Reason : CHEST PAIN Blood Pressure : */* mmHG Vent. Rate : 90 BPM Atrial Rate : 90 BPM P-R Int : 162 ms QRS Dur : 72 ms QT Int : 386 ms P-R-T Axes : 75 18 63 degrees QTcB Int : 472 ms Normal sinus rhythm Nonspecific ST abnormality Abnormal ECG When compared with ECG of 20-Sep-2019 07:01, No significant change was found Referred By: Jess Boland Electronically Signed By: ANDREA NY MD
[2024-11-25 18:09] LABS: Basophils Absolute Auto 0.1 X10*3/uL (0.0-0.2); Basophils Percent Auto 0.4 % (0-2); Eosinophils Absolute Auto 0.2 X10*3/uL (0.0-0.4); Eosinophils Percent Auto 1.3 % (0-4); Hematocrit 38.8 % (37.0-47.0); Hemoglobin 13.5 g/dl (12.0-16.0); Imm Gran Abs Auto 0.04 X10*3/uL (0.00-0.03); Imm Gran Pct Auto 0.4 % (0.0-0.4); Lymphocytes Absolute Auto 3.2 X10*3/uL (1.2-4.9); MANUAL DIFF FLAG NO; Mean Corpuscular HGB Conc 34.8 g/dl (31.0-35.0); Mean Corpuscular Hemoglobin 31.3 pg (27.0-33.0); Monocytes Absolute Auto 0.8 X10*3/uL (0.1-1.2); Monocytes Percent Auto 7.4 % (2-11); Neutrophils Absolute Auto 6.9 x10*3/uL (2.0-8.3); Neutrophils Percent Auto 61.5 % (45-73); Platelet Count 255 X10*3/uL (160-400); Red Blood Count 4.31 X10*6/uL (4.20-5.50); Red Cell Distribution Width 14.5 % (11.0-16.0); White Blood Count 11.2 X10*3/uL (4.8-10.8)
[2024-11-25 18:30] LABS: Alanine Aminotransferase 23 U/L (0-31); Albumin Level 4.2 g/dL (3.5-5.0); Anion Gap 16 (12-20); Aspartate Amino Transferase 23 U/L (5-31); Bilirubin Total 0.2 mg/dL (0.0-1.0); Blood Urea Nitrogen 16 mg/dL (9-16); Calcium 9.5 mg/dL (8.4-10.2); Carbon Dioxide 20 mmol/L (22-29); Chloride 111 mmol/L (96-108); Creatinine Clr Calc Pharmacy 50.6; Estimated Glomerular Filt Rate > 60; Glucose Random 152 mg/dL (60-115); Magnesium 1.8 mg/dL (1.6-2.6); Potassium 3.8 mmol/L (3.3-5.1); Sodium 143 mmol/L (135-145); Total Protein 7.4 g/dL (6.5-8.0)
[2024-11-25 18:37] LABS: Troponin-I High Sensitivity < 2.7 ng/L (<3.5-17.0)
[2024-11-25 18:38] LABS: Alkaline Phosphatase 79 U/L (39-117)
[2024-11-25 18:46] LABS: Influenza A PCR NEGATIVE (Negative); Influenza B PCR NEGATIVE (Negative); Resp Syncy Virus RNA Qual PCR NEGATIVE (Negative); SARS COV2 PCR INHOUSE NEGATIVE (Negative)
--- NOTE | 2024-11-25 19:38 | PC.NURSE ---
pt a&ox4, respirations even and unlabored. pt reports having lung biopsy from cancer x5 days ago, reports she has now had increased back pain which pt states is her lung . pt noted to have crackled to bases. pt ambulatory without dyspnea.
--- NOTE | 2024-11-25 20:09 | PC.NURSE ---
pt states she saw her results on the portal and states she no longer wants to wait and going to follow up with pcp. [employer] charger insulation aware
== END 2024-11-25 20:11 | disposition left against medical advice (07) ==
PROVIDERS: Physician Assistant Medical; Emergency Provider Emergency Medicine Emergency Medical Services; PCP Internal Medicine
DX: R06.02 Shortness of breath (principal); R07.89 Other chest pain; F17.210 Nicotine dependence, cigarettes, uncomplicated; M54.50 Low back pain, unspecified; Z79.01 Long term (current) use of anticoagulants; Z03.818 Encounter for observation for suspected exposure to other biological agents ruled out
CPT/HCPCS: 0241U; 71046; 80053; 83735; 84484; 85025; 93005; 99283; 99284

== ENCOUNTER → 2024-11-25 17:44 | Outpatient (BNV) | payer MEDICARE, MEDICAID, SELFPAY | PROVIDERS: PCP Internal Medicine; Visit Provider Radiology Diagnostic Radiology | DX: R07.9 Chest pain, unspecified (principal) | CPT/HCPCS: 71046 ==

== ENCOUNTER → 2024-11-25 17:44 | Outpatient (BNV) | payer MEDICARE, MEDICAID, SELFPAY | PROVIDERS: Emergency Provider Emergency Medicine Emergency Medical Services; PCP Internal Medicine; Visit Provider Internal Medicine Cardiovascular Disease | DX: R07.9 Chest pain, unspecified (principal); R94.31 Abnormal electrocardiogram [ECG] [EKG] | CPT/HCPCS: 93010 ==

== ENCOUNTER 2024-11-26 08:14 | Outpatient (AMB) | payer MEDICARE, MEDICAID, SELFPAY ==
--- OUTSIDE RECORDS SUMMARY | 2024-11-26 08:16 | XMS_ITS | Continuity of Care Document ---
Author Organization [facility] Address [address] [facility], [address] d Floor, [address] [place] [id number]- Care Team Providers Care Quality Process Engineer Name Role Phone Garfield MCKAY, Manuel Primary Care Physician [phone] [place] [facility] [place] - 11/23/24 [facility] [address], [address] [place] [id number]- Encounter Type: Triage Allergies, Adverse Reactions, Alerts [...] 2:12:00 PM EDT, Route to Pharmacy Electronically, [facility]/pharmacy #[id number], Partial fill upon patient requestif [...] 2:20:00 PM EST, Route to Pharmacy Electronically, [facility]/pharmacy #[id number], 152, cm, 06/29/24 13:25:00 EST, [...] Maintenance, 04/24/24 11:17:00 AM EDT, [id number], 152, cm, 01/31/24 13:16:00 EDT, Height Start [...] Team Personnel Name: Manuel Merrill MD Position: [facility] Outreach Member Role: PCP Address: [address] [place] [address] Internal Medicine [address] Telecom: Name: Tawanna Mckeon Position: S Outreach Member Role: Lifetime Consulting Physician Name: Estuardo Zimmer RN Position: [facility] RN Member Role: Primary Care Nurse Care Team Related Persons Name: MITCHELL SMITH Name: ANGELLA SMITHIN Insurance Providers Guarantor name: MELVIN SMITH Health Plan Information #: 1 Payer: MEDICARE PART B OUTPT Member Number: NA Policy Number: NA Group Number: NA Health Plan Information #: 2 Payer: [place] Member Number: NA Policy Number: NA Group Number: NA
[2024-11-26 08:23] LABS: Prothrombin Time Whole Bld POC 26.7 sec (11.1-13.5); ~PT, ~INR - Anti Coag Clinic 2.2 (0.9-1.1)
--- NOTE | 2024-11-26 08:35 | MHC.OFFVISCO ---
Intake Intake Visit Reasons: Anticoagulation Allergies vancomycin [VANCOMYCIN] Allergy (Intermediate, Verified 11/26/24 08:14) ITCHING/RASH metoclopramide [From Reglan] Adverse Reaction (Intermediate, Verified 11/26/24 08:14) Nausea and Vomiting Medication List - Last Reconciled 11/26/24 by Vonda Cam RN albuterol sulfate 90 mcg/actuation 2 puffs inhalation Q4H PRN albuterol sulfate 2.5 mg inhalation Q8H PRN amlodipine 5 mg PO DAILY atorvastatin 40 mg PO DAILY blood sugar diagnostic As directed carisoprodol (Soma) 350 mg PO TID PRN cholecalciferol (vitamin D3) 25 mcg PO DAILY clopidogrel 75 mg PO DAILY cyanocobalamin (vitamin B-12) PO diclofenac sodium 1% topical enoxaparin mg See Protocol subcut ezetimibe 10 mg PO DAILY famotidine 20 mg PO BEDTIME ferrous sulfate 325 mg PO DAILY food supplemt, lactose-reduced (Boost) PO hydrocortisone 2.5% appl topical lancets As directed magnesium oxide 400 mg PO DAILY metoprolol succinate ER (Toprol XL) 100 mg PO DAILY ondansetron HCl 8 mg PO Q12H PRN oxcarbazepine 300 mg PO BID oxycodone 5 mg PO BEDTIME PRN pramipexole 1 mg PO tirzepatide (Mounjaro) mg subcut umeclidinium-vilanterol 62.5-25 mcg/actuation (Anoro Ellipta) inhalation DAILY warfarin 5 mg See Protocol PO DIRECTED Nursing Note INR: 2.2 in therapeutic range Medications and supplements reviewed *s/p lung bx 11/20 was on warfarin and lovenox bridge over the weekend, 11/25 went to ER for pain 03/27 on inhalation every breath - She left the ER because pain had lessened but still is slightly present . No fever or chills - secretions are yellowish greens which they have been for a few months now. She will her pulonologist Denies any signs and symptoms of bleeding or bruising or clotting. Bleeding, bruising, clotting discussed Nutritional guidance given - no greens or boost today so INR stays above 2.0 Dose: 5mg x 3 days/ 7.5mg x 4 days- will stop lovneox F/U INR: 10 days Patient verbalizes understanding of instructions given with read back Anti-Coag Initial Assessment Social Hx Patient Tobacco Use Status: Current everyday Tobacco user Tobacco use type: Cigarette alcohol intake: never Coding Level of Care Code Est Patient Level 1 Diagnoses Current use of anticoagulant therapy Z79.01 Assessment & Plan Assessment & Plan (1) Current use of anticoagulant therapy: Onset Date: ~2019 Comment: (due to Stroke with PFO and factor 5 leiden) Code(s): Z79.01 - FDC (current) use of anticoagulants Category: Medical
== END 2024-11-26 08:42 | disposition home or self-care (01) ==
LOC: HO.ACS 08:14
PROVIDERS: PCP Internal Medicine; Visit Provider Internal Medicine Medical Oncology
DX: Z79.01 Long term (current) use of anticoagulants (principal)

== ENCOUNTER → 2024-11-26 08:14 | Outpatient (BNVA) | payer MEDICARE, MEDICAID, SELFPAY | PROVIDERS: PCP Internal Medicine; Visit Provider Internal Medicine Medical Oncology | DX: Z86.73 Personal history of transient ischemic attack (TIA), and cerebral infarction without residual deficits (principal); Z79.01 Long term (current) use of anticoagulants; Z51.81 Encounter for therapeutic drug level monitoring | CPT/HCPCS: 85610; 99211 ==

== ENCOUNTER 2024-12-03 14:12 | Outpatient (AMB) | payer MEDICARE, MEDICAID, SELFPAY ==
--- OUTSIDE RECORDS SUMMARY | 2024-12-03 14:24 | XMS_ITS | Continuity of Care Document ---
Author Organization [facility] Address [address] [place] [id number]- Care Team Providers Care Banquet Bartender Name Role Phone Manuel Merrill MD Primary Care Physician Encounter [facility] [place] Date(s): 10/30/24 - 11/29/24 [facility] [address] [place] [id number] Encounter Type: Triage Allergies, Adverse Reactions, Alerts [...] 2:12:00 PM EDT, [id number], Partial fill upon patient requestif the prescription [...] Date: 10/22/24 Status: Ordered Repeat number: 1 nicotine 14 mg/24 hr transdermal film, extended release 1 patch, Topically, Daily, # 30 patch, 0 Refills, Acute 01/20/26 2:58:00 PM EDT, 11/26/24 2:58:00 PM EDT, Patch, [facility]/pharmacy #[id number], Partial fill upon patient request if the prescription is for a schedule II opioid drug., 1 patch Topically Daily, 150, cm, 11/26/24 13:55:00 EDT, Height, 58, kg, 11/20/24 8:28:00 EDT, Dry Weight Start Date: 11/26/24 Stop Date: 01/20/26 Status: Ordered Quantity: 30.0 Unit: patch Repeat number: 1 OXcarbazepine 150 mg oral tablet 2, tablet, By Mouth, 2 times a day, DAYS INSTR:FOR TRIGMEINAL NEURALGIA, # 360 tablet, Refills 3, Tot. Refills 3, Maintenance, 06/29/24 2:20:00 PM EST, Route to Pharmacy Electronically, [facility]/pharmacy #[id number], 152, cm, 06/29/24 13:25:00 [...] 5 Refills, Maintenance, 04/24/24 11:17:00 AM EDT, [id number], 152, cm, 01/31/24 13:16:00 EDT, Height Start [...] Date: 11/10/23 Status: Ordered Repeat number: 1 Wellbutrin SR 150 mg/12 hours oral tablet, extended release See Instructions, 1 tablet By Mouth x 3 days then increase to 1 tab po bid., # 60 each, 2 Refills, Maintenance, 11/26/24 2:57:00 PM EDT, ER Tablet, [facility]/pharmacy #[id number], Partial fill upon patient request if the prescription is for a schedule II opioid drug., 150, cm, 11/26/24 13:55:00 EDT, Height, 58,kg, 11/20/24 8:28:00 EDT, Dry Weight Start Date: 11/26/24 Status: Ordered Quantity: 60.0 Unit: each Repeat number: 3 Problem List Condition Confirmation Course Effective Dates [...] Active Social History Social History Type Response Smoking Status 10 or more cigarette s (1/2 pack or more)/day in last 30 days; Interested in cessation: No; Patient wants NRT during admission No entered on: 11/26/24 Sex Sex Representation Female (finding) Patient Care team information Care Team Personnel Name: Manuel Merrill MD Position: [facility] Outreach Member Role: PCP Address: [address] [place] [address] Internal Medicine [address] Telecom: Name: Tawanna Mckeon Position: S Outreach Member Role: Lifetime Consulting Physician Name: Estuardo Zimmer RN Position: [facility] RN Member Role: Primary Care Nurse Care Team Related Persons Name: MITCHELL SMITH Name: VICENTE SMITH Insurance Providers Guarantor name: MELVIN CABRERAC Health Plan Information #: 1 Payer: MEDICARE PART B OUTPT Member Number: NA Policy Number: NA Group Number: NA Health Plan Information #: 2 P[place]: [place] Member Number: NA Policy Number: NA Group Number: NA
--- OUTSIDE RECORDS SUMMARY | 2024-12-03 14:24 | XMS_ITS | Continuity of Care Document ---
Author Organization [facility] Address [address] [place] [address]- Care Team Providers Care Wood Heel Fitter Machine Name Role Phone Garfield MCKAY, Manuel Primary Care Physician [place] [facility] [place](s): 11/02/24 - 12/02/24 [facility] [address] [place] [id number] Encounter Type: Triage Allergies, Adverse Reactions, [...] 2:12:00 PM EDT, Route to Pharmacy Electronically, [facility]/pharmacy #[id number], Partial fill upon patient requestif the prescription [...] PM EDT, 11/26/24 2:58:00 PM EDT, Patch, [facility]/pharmacy #[id number], Partial fill upon patient request [...] 2:20:00 PM EST, Route to Pharmacy Electronically, [facility]/pharmacy #[id number], 152, cm, 06/29/24 13:25:00 EST, [...] Maintenance, 04/24/24 11:17:00 AM EDT, [id number], 152, cm, 01/31/24 13:16:00 EDT, Height Start [...] Maintenance, 11/26/24 2:57:00 PM EDT, ER Tablet, [facility]/pharmacy #[id number], Partial fill upon patient request if the [...] MEDICAL CENTER Outreach Member Role: PCP Address: [address] [place] [address] [address] Telecom: Name: Tawanna Mckeon Position: [facility] Outreach Member Role: Lifetime Consulting Physician Name: [...]
--- NOTE | 2024-12-03 14:30 | A.OFFVIS_ITS ---
Vital Signs 12/03/24 14:31 Height 5 ft Weight 130 lb 1.164 oz BMI 25.4 BP 114/62 Blood Pressure Location Lt brachial Position Sitting Intake Visit Reasons: bp has been all over the place Software Build Engineer Required: No Allergies vancomycin [VANCOMYCIN] Allergy (Intermediate, Verified 11/26/24 08:14) ITCHING/RASH metoclopramide [From Reglan] Adverse Reaction (Intermediate, Verified 11/26/24 08:14) Nausea and Vomiting Medication List - Last Reconciled 12/03/24 by LUISA Ashraf albuterol sulfate 90 mcg/actuation 2 puffs inhalation Q4H PRN albuterol sulfate 2.5 mg inhalation Q8H PRN amlodipine 5 mg PO DAILY atorvastatin 40 mg PO DAILY blood sugar diagnostic As directed carisoprodol (Soma) 350 mg PO TID PRN cholecalciferol (vitamin D3) 25 mcg PO DAILY clopidogrel 75 mg PO DAILY cyanocobalamin (vitamin B-12) PO diclofenac sodium 1% topical ezetimibe 10 mg PO DAILY famotidine 20 mg PO BEDTIME ferrous sulfate 325 mg PO DAILY food supplemt, lactose-reduced (Boost) PO hydrocortisone 2.5% appl topical lancets As directed magnesium oxide 400 mg PO DAILY metoprolol succinate ER (Toprol XL) 50 mg PO DAILY ondansetron HCl 8 mg PO Q12H PRN oxcarbazepine 300 mg PO BID oxycodone 5 mg PO BEDTIME PRN pramipexole 1 mg PO tirzepatide (Mounjaro) mg subcut umeclidinium-vilanterol 62.5-25 mcg/actuation (Anoro Ellipta) inhalation DAILY warfarin 5 mg See Protocol PO DIRECTED HPI HPI bp has been all over the place: Details: Diane is a 69-year-old female with past medical history of hypertension, hyperlipidemia, diabetes, sleep apnea with CPAP use, PFO, TIA, on anticoagulation, pacemaker, COPD, CAD, RCA stent 01/2024 who presents for follow-up. She was seen by Dr. Chisholm on 11/08/2024 and at that time her metop rolol dose was increased for heart palpitations. Today she reports that she did not like how she felt with the higher dose metoprolol. She took it for about a week and then went back to 50 mg daily. Her palpitations are overall less than what she previously reported. She describes an episode on mother's day where she went to the emergency room due to chest pain with deep inspiration. She had a lung biopsy 5 days prior. She tells me that testing did show a small pneumothorax. Since that time her pain has resolved and condition improved. She says she does have follow-up with her provider in the near future. No lightheadedness, presyncope, syncope, falls. Taking all meds as directed. She tells me she is having a colonoscopy on 01/16/2024 for evaluation of anemia and having for precancerous polyps in the past. She has already held Plavix for her recent bronchoscopy and lung biopsy without cardiac issues. She is planning to hold it again prior to the colonoscopy. [facility] Medical History Coronary artery calcification seen on CAT scan History of colon polyps (~2009) Type II diabetes mellitus, well controlled Personal history of nicotine dependence Factor 5 Leiden mutation, heterozygous Obstructive sleep apnea on CPAP (~2008) Osteopenia (~2018) Pacemaker (~2021) History of CVA (cerebrovascular accident) (~2019) Hyperlipidemia PFO (patent foramen ovale) (~2019) HTN (hypertension) COPD (chronic obstructive pulmonary disease) Current use of anticoagulant therapy (~2019) Surgical History Stented coronary artery S/P cardiac cath Hx of cystoscopy Hx of blepharoplasty History of esophagogastroduodenoscopy (EGD) History of colonoscopy History of unilateral oophorectomy History of cholecystectomy (~2000) History of bladder surgery (~1999) History of pacemaker (~2021) Family History Mother Stroke Multiple sclerosis Diabetes Father CAD (coronary artery disease) Social History Alcohol intake: never Patient Tobacco Use Status: Current everyday Tobacco user Tobacco use type: Cigarette Cigarettes Per Day: 4 Years Smoked: 40 +/- e-Cigarette/Vaping Use: Currently Using service: No Current occupational status: retired Review of Systems Const All systems reviewed & are unremarkable except as noted in HPI and below ENT Denies dizziness Card Denies chest pain, Denies chest pain at rest, Denies chest pain with activity, Denies rapid heart rate, Denies pedal edema, Denies edema, Denies leg edema, Denies lightheadedness, Denies palpitations, Denies dyspnea, Denies dyspnea on exertion and Denies orthopnea Resp Denies cough, Denies dyspnea and Denies dyspnea on exertion GI Denies hematochezia and Denies change in stool character Musc Denies abnormal gait, Denies limited range of motion, Denies muscle cramps, Denies muscle weakness, Denies numbness, Denies radiating pain into limb, Denies stiffness and Denies tingling Neuro Denies abnormal gait, Denies dizziness, Denies numbness and Denies tingling Endo Denies palpitations Physical Exam Vital Signs: Last Vital Signs BP 114/62 12/03/24 14:31 BMI result Body Mass Index 25.4 Const General: cooperative, healthy appearing, comfortable and no acute distress Orientation/consciousness: patient oriented x3 Resp Effort & Inspection: normal respiratory effort Auscultation: clear to auscultation bilaterally, no crackles, no rales, no rhonchi and no wheezes Cardio Rate: regular rate Rhythm: regular rhythm Heart sounds: S1 normal heart sound present, S2 normal heart sound present, no gallops, no murmurs and no rubs Neuro General: patient oriented x3 Extrem General: Yes normal to inspection, No no pedal edema and No calf tenderness Psych Appearance: grossly normal Mental Status: mental status grossly normal Speech and movement: Normal speech and movement present Assessment & Plan Assessment & Plan (1) Palpitations: Code(s): R00.2 - Palpitations Plan: Reports of intermittent palpitations, previously felt to be related to anxiety. On last visit her metoprolol was increased which she did not tolerate. At this time will have her continue metoprolol XL 50 mg daily and notify this office if she has increasing heart palpitations again. (2) CAD (coronary artery disease): Code(s): I25.10 - Atherosclerotic heart disease of [place] coronary artery without angina pectoris Category: Medical Plan: CAD with stenting of the RCA January 2024. Patient was currently on Plavix and warfarin therapy. Had to come off Plavix for lung biopsy and bronchoscopy with Lovenox bridging without any known cardiac complications. Continue aggressive risk factor modification. Continue Plavix for 1 year total after stenting and following that just warfarin lifelong. Continue high-intensity statin therapy with ideal LDL goal less than 70. Continue aggressive control blood pressure which is well optimized at this point time. No other workup is indicated at this point time. (3) Cardiac pacemaker in situ: Code(s): Z95.0 - Presence of cardiac pacemaker Category: Medical Plan: Cardiac pacemaker in-situ. Functioning normally on interrogation last visit. She is due for office interrogation in 5 months. Continue to follow remote monitoring. (4) History of CVA (cerebrovascular accident): Onset Date: ~2019 Comment: (Right embolic stroke while on ASA - acute cortical infarct right precentral gyrus - 09/19/2019) Code(s): Z86.73 - Personal history of transient ischemic attack (TIA), and cerebral infarction without residual deficits Category: Medical Plan: Prior CVA with multiple risk factors as well as PFO. Has done well with warfarin therapy. Being followed by [facility]. Maintain target INR between 2 and 3. Plan I discussed the benefits and risks of continuing metoprolol at a lowered dose of 50 mg versus higher doses and the interim steps if symptoms persist. She had questions about smoking cessation treatment with nicotine patch and bupropion was clarified, noting non-reactivity. We reviewed the pneumothorax episode and follow-up imaging plan. The schedule for her upcoming endoscopic procedures was confirmed, with a focus on bridging Plavix to manage cardiovascular risks due to her prior stenting. Consent was reaffirmed, and bridging was understood as a preparedness strategy for potential interventions. Patient was informed and verbally consented to the use of an ambient scribe for clinic note documentation during this visit. Time spent on chart review, documentation, interviewed assessment Medications: New metoprolol succinate ER dose reduced back to 50mg daily 50 mg PO DAILY 90 tabs 3RF 90 days Patient Instructions: - Continue metoprolol 50 mg daily - Monitor blood pressure regularly at home - Prepare for colonoscopy and endoscopy on January 15 - Follow coumadin bridging instructions with Lovenox - Notify us promptly if chest pain or significant palpitations occur Coding Level of Care Code Est Pt Level 4 (04131) Complex EM visit Add On G2211 Diagnoses Palpitations R00.2 CAD (coronary artery disease) I25.10 Cardiac pacemaker in situ Z95.0 History of CVA (cerebrovascular accident) Z86.73 Time Spent (min) 30
[2024-12-03 14:31] VITALS: BP 114/62; BMI 25.4
== END 2024-12-03 15:08 | disposition home or self-care (01) ==
LOC: HO.HCS 14:13
PROVIDERS: PCP Internal Medicine; Visit Provider Nurse Practitioner Family
DX: R00.2 Palpitations (principal); I25.10 Atherosclerotic heart disease of native coronary artery without angina pectoris; Z95.0 Presence of cardiac pacemaker; Z86.73 Personal history of transient ischemic attack (TIA), and cerebral infarction without residual deficits
CPT/HCPCS: 99214; G2211

== ENCOUNTER → 2024-12-03 14:12 | Outpatient (BNVA) | payer MEDICARE, MEDICAID, SELFPAY | PROVIDERS: PCP Internal Medicine; Visit Provider Nurse Practitioner Family | DX: I25.10 Atherosclerotic heart disease of native coronary artery without angina pectoris (principal); R00.2 Palpitations; Z95.0 Presence of cardiac pacemaker; Z86.73 Personal history of transient ischemic attack (TIA), and cerebral infarction without residual deficits | CPT/HCPCS: 99212 ==

== ENCOUNTER 2024-12-06 08:59 | Outpatient (AMB) | payer MEDICARE, MEDICAID, SELFPAY ==
[2024-12-06 09:30] LABS: Prothrombin Time Whole Bld POC 42.4 sec (11.1-13.5); ~PT, ~INR - Anti Coag Clinic 3.5 (0.9-1.1)
--- NOTE | 2024-12-06 09:40 | MHC.OFFVISCO ---
Intake Intake Visit Reasons: Anticoagulation Allergies vancomycin [VANCOMYCIN] Allergy (Intermediate, Verified 12/06/24 09:18) ITCHING/RASH metoclopramide [From Reglan] Adverse Reaction (Intermediate, Verified 12/06/24 09:18) Nausea and Vomiting Medication List - Last Reconciled 12/06/24 by Catherine Bales, RN albuterol sulfate 90 mcg/actuation 2 puffs inhalation Q4H PRN albuterol sulfate 2.5 mg inhalation Q8H PRN amlodipine 5 mg PO DAILY atorvastatin 40 mg PO DAILY blood sugar diagnostic As directed carisoprodol (Soma) 350 mg PO TID PRN cholecalciferol (vitamin D3) 25 mcg PO DAILY clopidogrel 75 mg PO DAILY cyanocobalamin (vitamin B-12) PO diclofenac sodium 1% topical ezetimibe 10 mg PO DAILY famotidine 20 mg PO BEDTIME ferrous sulfate 325 mg PO DAILY food supplemt, lactose-reduced (Boost) PO hydrocortisone 2.5% appl topical lancets As directed magnesium oxide 400 mg PO DAILY metoprolol succinate ER 50 mg PO DAILY 90 days ondansetron HCl 8 mg PO Q12H PRN oxcarbazepine 300 mg PO BID oxycodone 5 mg PO BEDTIME PRN pramipexole 1 mg PO tirzepatide (Mounjaro) mg subcut umeclidinium-vilanterol 62.5-25 mcg/actuation (Anoro Ellipta) inhalation DAILY warfarin 5 mg See Protocol PO DIRECTED Nursing Note INR: 3.5 out of therapeutic range of 2-3 Medications and supplements reviewed Patient status: well. States she is going to stop smoking and will be on a nicotine patch and wellbutrin both of which do not affect the INR. Smoking has been known to lower the INR so quitting may result in higher INR. Will follow pt closely. Medications or supplements: no changes Diet: no changes Denies any signs and symptoms of bleeding or clotting or unusual bruising Bleeding, bruising, clotting discussed Dose: decrease today's dose of 5mg to 2.5mg and decrease tomorrow's dose from 7.5mg to 5mg then resume usual dose of 7.5mg X 4days and 5mg X 3 days (Sun/Tues/Thurs) F/U INR Date : 1 week?? Patient verbalizing understanding of instructions given. Anti-Coag Initial Assessment Social Hx Patient Tobacco Use Status: Current everyday Tobacco user Tobacco use type: Cigarette alcohol intake: never Coding Level of Care Code Est Patient Level 1 Diagnoses Current use of anticoagulant therapy Z79.01 Assessment & Plan Assessment & Plan (1) Current use of anticoagulant therapy: Onset Date: ~2019 Comment: (due to Stroke with PFO and factor 5 leiden) Code(s): Z79.01 - skilled nursing (current) use of anticoagulants Category: Medical
== END 2024-12-06 09:48 | disposition home or self-care (01) ==
LOC: HO.ACS 08:59
PROVIDERS: PCP Internal Medicine; Visit Provider Internal Medicine Medical Oncology
DX: Z79.01 Long term (current) use of anticoagulants (principal)

== ENCOUNTER → 2024-12-06 08:59 | Outpatient (BNVA) | payer MEDICARE, MEDICAID, SELFPAY | PROVIDERS: PCP Internal Medicine; Visit Provider Internal Medicine Medical Oncology | DX: Z86.718 Personal history of other venous thrombosis and embolism (principal); Z79.01 Long term (current) use of anticoagulants; Z51.81 Encounter for therapeutic drug level monitoring | CPT/HCPCS: 85610; 99211 ==

== ENCOUNTER 2024-12-13 08:54 | Outpatient (AMB) | payer MEDICARE, MEDICAID, SELFPAY ==
[2024-12-13 09:15] LABS: Prothrombin Time Whole Bld POC 39.1 sec (11.1-13.5); ~PT, ~INR - Anti Coag Clinic 3.3 (0.9-1.1)
--- NOTE | 2024-12-13 09:23 | MHC.OFFVISCO ---
Intake Intake Visit Reasons: Anticoagulation Allergies vancomycin [VANCOMYCIN] Allergy (Intermediate, Verified 12/13/24 09:01) ITCHING/RASH metoclopramide [From Reglan] Adverse Reaction (Intermediate, Verified 12/13/24 09:01) Nausea and Vomiting Medication List - Last Reconciled 12/13/24 by Catherine Bales, LIN albuterol sulfate 90 mcg/actuation 2 puffs inhalation Q4H PRN albuterol sulfate 2.5 mg inhalation Q8H PRN amlodipine 5 mg PO DAILY atorvastatin 40 mg PO DAILY blood sugar diagnostic As directed carisoprodol (Soma) 350 mg PO TID PRN cholecalciferol (vitamin D3) 25 mcg PO DAILY clopidogrel 75 mg PO DAILY cyanocobalamin (vitamin B-12) PO diclofenac sodium 1% topical ezetimibe 10 mg PO DAILY famotidine 20 mg PO BEDTIME ferrous sulfate 325 mg PO DAILY food supplemt, lactose-reduced (Boost) PO hydrocortisone 2.5% appl topical lancets As directed magnesium oxide 400 mg PO DAILY metoprolol succinate ER 50 mg PO DAILY 90 days ondansetron HCl 8 mg PO Q12H PRN oxcarbazepine 300 mg PO BID oxycodone 5 mg PO BEDTIME PRN pramipexole 1 mg PO tirzepatide (Mounjaro) mg subcut umeclidinium-vilanterol 62.5-25 mcg/actuation (Anoro Ellipta) inhalation DAILY warfarin 5 mg See Protocol PO DIRECTED Nursing Note INR: 3.3out of therapeutic range of 2-3 Medications and supplements reviewed Patient status: well Medications or supplements: no changes Diet: usual diet, supplements with Boost Denies any signs and symptoms of bleeding or clotting or unusual bruising Bleeding, bruising, clotting discussed Nutritional guidance given: continue the boost Dose: decrease weekly dose by 2.5mg. Pt will take 7.5mg X 3 days and 5mg X 4 days F/U INR Date : 2 weeks?? Patient verbalizing understanding of instructions given. Anti-Coag Initial Assessment Social Hx Patient Tobacco Use Status: Current everyday Tobacco user Tobacco use type: Cigarette alcohol intake: never Coding Level of Care Code Est Patient Level 1 Diagnoses Current use of anticoagulant therapy Z79.01 Results AMB INR Fingerstick AMB INR Fingerstick 3.3 Last Edit by Catherine Bales, RN on 12/13/24 09:24 interface delay Assessment & Plan Assessment & Plan (1) Current use of anticoagulant therapy: Onset Date: ~2019 Comment: (due to Stroke with PFO and factor 5 leiden) Code(s): Z79.01 - halfway (current) use of anticoagulants Category: Medical
== END 2024-12-13 09:31 | disposition home or self-care (01) ==
LOC: HO.ACS 08:54
PROVIDERS: PCP Internal Medicine; Visit Provider Internal Medicine Medical Oncology
DX: Z79.01 Long term (current) use of anticoagulants (principal)

== ENCOUNTER → 2024-12-13 08:54 | Outpatient (BNVA) | payer MEDICARE, MEDICAID, SELFPAY | PROVIDERS: PCP Internal Medicine; Visit Provider Internal Medicine Medical Oncology | DX: Z86.73 Personal history of transient ischemic attack (TIA), and cerebral infarction without residual deficits (principal); Z79.01 Long term (current) use of anticoagulants; Z51.81 Encounter for therapeutic drug level monitoring | CPT/HCPCS: 85610; 99211 ==

== ENCOUNTER 2024-12-27 09:02 | Outpatient (AMB) | payer MEDICARE, MEDICAID, SELFPAY ==
[2024-12-27 09:13] LABS: Prothrombin Time Whole Bld POC 42.1 sec (11.1-13.5); ~PT, ~INR - Anti Coag Clinic 3.5 (0.9-1.1)
--- NOTE | 2024-12-27 09:36 | MHC.OFFVISCO ---
Intake Intake Visit Reasons: Anticoagulation Allergies vancomycin [VANCOMYCIN] Allergy (Intermediate, Verified 12/27/24 09:04) ITCHING/RASH metoclopramide [From Reglan] Adverse Reaction (Intermediate, Verified 12/27/24 09:04) Nausea and Vomiting Medication List - Last Reconciled 12/27/24 by Vonda Cam RN albuterol sulfate 90 mcg/actuation 2 puffs inhalation Q4H PRN albuterol sulfate 2.5 mg inhalation Q8H PRN amlodipine 5 mg PO DAILY atorvastatin 40 mg PO DAILY blood sugar diagnostic As directed carisoprodol (Soma) 350 mg PO TID PRN cholecalciferol (vitamin D3) 25 mcg PO DAILY clopidogrel 75 mg PO DAILY cyanocobalamin (vitamin B-12) PO diclofenac sodium 1% topical ezetimibe 10 mg PO DAILY famotidine 20 mg PO BEDTIME ferrous sulfate 325 mg PO DAILY food supplemt, lactose-reduced (Boost) PO hydrocortisone 2.5% appl topical lancets As directed magnesium oxide 400 mg PO DAILY metoprolol succinate ER 50 mg PO DAILY 90 days ondansetron HCl 8 mg PO Q12H PRN oxcarbazepine 300 mg PO BID oxycodone 5 mg PO BEDTIME PRN pramipexole 1 mg PO tirzepatide (Mounjaro) mg subcut umeclidinium-vilanterol 62.5-25 mcg/actuation (Anoro Ellipta) inhalation DAILY warfarin 5 mg See Protocol PO DIRECTED Nursing Note INR ?3.5 out of therapeutic range Medications and supplements reviewed Patient status: decreased appetite, has not had usual amt of boost, smoking maybe a little less, has not started the nicotine patch yet Medications or supplements: has not started the nicotine patch or buprion Diet: decreased - usually takes boost - but running low so had less: explained boost counts as greens and requires same amt weekly Denies any signs and symptoms of bleeding or clotting or unusual bruising Bleeding, bruising, clotting discussed Nutritional guidance given: resuem usual amt of boost Dose: hold today - due to pt concern about being to high tentative decrease in warfarin dose, hold today then finish dosing for the week, then possbile decrease dose 7.5mg x 2 days/ 5mg x 5 days - recheck INR to determine dosing She has was warfarin lovenox bridge per Dr Garfield maguire and plavix holding as per previous procedure. F/U INR Date: 1 week ?? and January 10 day of hold to determine when to safely start lovneox Patient verbalizing understanding of instructions given. 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
--- OUTSIDE RECORDS SUMMARY | 2024-12-27 09:38 | XMS_ITS | Continuity of Care Document ---
Author Organization [facility] Pulmonary M edicine Address [address] [place] [id number] Care Team Providers Care Computer Hardware Technician Name Role Phone Garfield MCKAY, Manuel Primary Care Physician [place] [facility] [place](s): 11/22/24 - 12/22/24 [facility] Pul[facility] Medicine [address] [place] [address] Encounter Type: Triage Allergies, Adverse Reactions, Alerts Substance Criticality Severity Reaction Reaction Severity Status vancomycin Active gabapentin 1 Other Active Reglan Active 1Outside Source Comment: Fatigue, bladder pressure Immunizations Given and Recorded Vaccine Date Status [...] 2:12:00 PM EDT, Route to Pharmacy Electronically, [facility]/pharmacy #[id number], Partial fill upon patient requestif the prescription [...] PM EDT, 11/26/24 2:58:00 PM EDT, Patch, [facility]/pharmacy #[id number], Partial fill upon patient request if [...] 2:20:00 PM EST, Route to Pharmacy Electronically, [facility]/pharmacy #[id number], 152, cm, 06/29/24 13:25:00 EST, [...] 5 Refills, Maintenance, 04/24/24 11:17:00 AM EDT, [facility] STORE [id number], 152, cm, 01/31/24 13:16:00 EDT, Height Start [...] Maintenance, 11/26/24 2:57:00 PM EDT, ER Tablet, [facility]/pharmacy #[id number], Partial fill upon patient request if the prescription is for a schedule II opioid drug., 150, cm, 11/26/24 13:55:00 EDT, Height, 58,kg, 11/20/24 8:28:00 EDT, Dry Weight Start Date: 11/26/24 Status: Ordered Quantity: 60.0 Unit: each Repeat number: 3 Problem List Condition Confirmation Course Effective Dates Status H ealth Status Informant Abdominal bloating Confirmed Active Carotid stenosis Confirmed Active Stroke Confirmed 09/19/19 Active Chest [...] Team Personnel Name: Manuel Merrill MD Position: [facility] Outreach Member Role: PCP Address: [address] [place] [address] Internal Medicine [address] Telecom: Name: Tawanna Mckeon Position: [facility] Outreach Member Role: Lifetime Consulting Physician Name: Estuardo Zimmer RN Position: [facility] RN Member Role: Primary Care Nurse Care Team Related Persons Name: MITCHELL SMITH Name: VICENTE SMITH Insurance Providers Guarantor name: MELVIN SMITH Health Plan Information #: 1 Payer: MEDICARE B Payer Identifier: NA Member Number: [id number] Group Number: NA Subscriber Identifier: [id number] Relationship to Subscriber: self Coverage Type: NA Coverage Verification Date: NA Telecom: NA Address: NA Health Plan Information #: 2 Payer: [employer] Payer Identifier: NA Member Number: [id number] Group Number: Subscriber Identifier: [id number] Relationship to Subscriber: self Coverage Type: MEDICAID Coverage Verification Date: NA Telecom: NA Address: NA
== END 2024-12-27 10:11 | disposition home or self-care (01) ==
LOC: HO.ACS 09:02
PROVIDERS: PCP Internal Medicine; Visit Provider Internal Medicine Medical Oncology
DX: Z79.01 Long term (current) use of anticoagulants (principal)

== ENCOUNTER → 2024-12-27 09:02 | Outpatient (BNVA) | payer MEDICARE, MEDICAID, SELFPAY | PROVIDERS: PCP Internal Medicine; Visit Provider Internal Medicine Medical Oncology | DX: Z86.73 Personal history of transient ischemic attack (TIA), and cerebral infarction without residual deficits (principal); Z79.01 Long term (current) use of anticoagulants; Z51.81 Encounter for therapeutic drug level monitoring | CPT/HCPCS: 85610; 99211 ==

== ENCOUNTER 2024-12-29 07:02 | Outpatient (REF) | payer MEDICARE, MEDICAID, SELFPAY ==
[2024-12-29 07:17] LABS: MANUAL DIFF FLAG NO
[2024-12-29 07:39] LABS: Basophils Percent Auto 0.5 % (0-2); Eosinophils Absolute Auto 0.2 X10*3/uL (0.0-0.4); Eosinophils Percent Auto 2.4 % (0-4); Hematocrit 41.4 % (37.0-47.0); Imm Gran Abs Auto 0.02 X10*3/uL (0.00-0.03); Imm Gran Pct Auto 0.2 % (0.0-0.4); Lymphocytes Percent Auto 34.3 % (20-40); Mean Corpuscular HGB Conc 33.8 g/dl (31.0-35.0); Mean Corpuscular Hemoglobin 31.1 pg (27.0-33.0); Mean Platelet Volume 9.1 fL (9.4-12.3); Monocytes Absolute Auto 0.8 X10*3/uL (0.1-1.2); Neutrophils Absolute Auto 4.7 x10*3/uL (2.0-8.3); Neutrophils Percent Auto 53.6 % (45-73); Platelet Count 294 X10*3/uL (160-400); Red Cell Distribution Width 13.7 % (11.0-16.0); White Blood Count 8.7 X10*3/uL (4.8-10.8)
[2024-12-29 07:57] LABS: Estimated Average Glucose 131 mg/dL; Hemoglobin A1c % 6.2 % (<6.0)
[2024-12-29 07:59] LABS: Alanine Aminotransferase 18 U/L (0-31); Albumin Level 4.3 g/dL (3.5-5.0); Alkaline Phosphatase 85 U/L (39-117); Anion Gap 14 (12-20); Aspartate Amino Transferase 21 U/L (5-31); Bilirubin Total 0.4 mg/dL (0.0-1.0); Blood Urea Nitrogen 13 mg/dL (9-16); Calcium 9.9 mg/dL (8.4-10.2); Carbon Dioxide 26 mmol/L (22-29); Chloride 107 mmol/L (96-108); Estimated Glomerular Filt Rate > 60; Glucose Random 171 mg/dL (60-115); Potassium 4.3 mmol/L (3.3-5.1); Sodium 143 mmol/L (135-145); Total Protein 7.2 g/dL (6.5-8.0)
== END 2024-12-29 07:03 | disposition home or self-care (01) ==
LOC: HO.LAB 07:02
PROVIDERS: PCP Internal Medicine; Visit Provider Internal Medicine
DX: E11.41 Type 2 diabetes mellitus with diabetic mononeuropathy (principal); I10 Essential (primary) hypertension; I25.10 Atherosclerotic heart disease of native coronary artery without angina pectoris
CPT/HCPCS: 36415; 80053; 83036; 85025

== ENCOUNTER 2025-01-03 08:54 | Outpatient (AMB) | payer MEDICARE, MEDICAID, SELFPAY ==
[2025-01-03 09:12] LABS: ~PT, ~INR - Anti Coag Clinic 2.8 (0.9-1.1)
--- NOTE | 2025-01-03 09:13 | MHC.OFFVISCO ---
Intake Intake Visit Reasons: Anticoagulation Allergies vancomycin (VANCOMYCIN) Allergy (Intermediate, Verified 01/03/25 08:55) ITCHING/RASH metoclopramide (From Reglan) Adverse Reaction (Intermediate, Verified 01/03/25 08:55) Nausea and Vomiting Medication List - Last Reconciled 01/03/25 by Vonad Cam RN albuterol sulfate 90 mcg/actuation 2 puffs inhalation Q4H PRN albuterol sulfate 2.5 mg inhalation Q8H PRN amlodipine 5 mg PO DAILY atorvastatin 40 mg PO DAILY blood sugar diagnostic As directed carisoprodol (Soma) 350 mg PO TID PRN cholecalciferol (vitamin D3) 25 mcg PO DAILY clopidogrel 75 mg PO DAILY cyanocobalamin (vitamin B-12) PO diclofenac sodium 1% topical enoxaparin mg subcut ezetimibe 10 mg PO DAILY famotidine 20 mg PO BEDTIME ferrous sulfate 325 mg PO DAILY food supplemt, lactose-reduced (Boost) PO hydrocortisone 2.5% appl topical lancets As directed magnesium oxide 400 mg PO DAILY metoprolol succinate ER 50 mg PO DAILY 90 days ondansetron HCl 8 mg PO Q12H PRN oxcarbazepine 300 mg PO BID oxycodone 5 mg PO BEDTIME PRN pramipexole 1 mg PO tirzepatide (Mounjaro) mg subcut umeclidinium-vilanterol 62.5-25 mcg/actuation (Anoro Ellipta) inhalation DAILY warfarin 5 mg See Protocol PO DIRECTED Nursing Note INR: 2.8 in therapeutic range Medications and supplements reviewed No changes in health, diet, medications, or supplements, Denies any signs and symptoms of bleeding or bruising or clotting. Bleeding, bruising, clotting discussed Nutritional guidance given - try to have a little more protein and water in diet Dose: lower dose 7.5mg x 2 days/ 5mg x 5 days F/U INR: 01/10/25 Patient verbalizes understanding of instructions given Anti-Coag Initial Assessment Social Hx Patient Tobacco Use Status: Current everyday Tobacco user Tobacco use type: Cigarette alcohol intake: never Coding Level of Care Code Est Patient Level 1 Diagnoses Current use of anticoagulant therapy Z79.01 Results AMB INR Fingerstick AMB INR Fingerstick 2.8 Last Edit by Vonda Cam RN on 01/03/25 09:07 manual entry Assessment & Plan Assessment & Plan (1) Current use of anticoagulant therapy: Onset Date: ~2019 Comment: (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
== END 2025-01-03 09:19 | disposition home or self-care (01) ==
LOC: HO.ACS 08:54
PROVIDERS: PCP Internal Medicine; Visit Provider Internal Medicine Medical Oncology
DX: Z79.01 Long term (current) use of anticoagulants (principal)

== ENCOUNTER → 2025-01-03 08:54 | Outpatient (BNVA) | payer MEDICARE, MEDICAID, SELFPAY | PROVIDERS: PCP Internal Medicine; Visit Provider Internal Medicine Medical Oncology | DX: Z86.73 Personal history of transient ischemic attack (TIA), and cerebral infarction without residual deficits (principal); Z79.01 Long term (current) use of anticoagulants; Z51.81 Encounter for therapeutic drug level monitoring | CPT/HCPCS: 85610; 99211 ==

== ENCOUNTER 2025-01-10 08:19 | Outpatient (AMB) | payer MEDICARE, OTHER, SELFPAY ==
--- OUTSIDE RECORDS SUMMARY | 2025-01-10 08:32 | XMS_ITS | Patient Health Record ---
Author Organization [facility] Address [address] [place] [address] Care Team Providers Care Bellows Tester Name Role Phone Manuel Merrill MD Primary Care Provider Kaleb Barrera Unavailable [phone] Allergies Allergen (clinical drug ingredient) Drug/Non Drug Allergy documented on EMR Reaction Allergy Type Onset Date Status vancomycin Vancomycin HCl Unknown Drug Allergy A ctive metoclopramide Reglan Unknown Drug Allergy Ac tive Reason For Referral No Information Medications Medication SIG (Take, Route, Frequency, Duration) Notes Start Date End Date Status Dicyclomine HCl 10 MG 1-2 capsules Orall y Four times a day as needed for abdominal pain/bloating/cramps for 30 day(s) 07/29/2015 Active ProAir HFA 108 (90 Base) MCG/ACT 2 puffs as needed Inhalation prn Active Simvastatin 40 MG 1 tablet in the even ing Orally Once a day Active Advair Diskus 250-50 MCG/DOSE 1 puff Inhalation prn Active rOPINIRole HCl 2 MG 1 tablet Orally Once a day Active HYDROcodone-Acetaminophen 500mg 1 tablet as needed Orally prn Active Prilosec 20 MG 1 capsule Orally Onc e a day Active Gabapentin 100 MG 1 tablet Orally qd Active Montelukast Sodium 10 MG 1 tablet in the evening Orally Once a day Active Vitamin D3 Super Strength 2000 UNIT 1 Orally qd Active Spiriva HandiHaler 18 MCG 1 capsule Inha lation Once a day Active Immunizations Vaccine Route Administration Date Status Comme nts Flu vaccine no Preserv 3 and > Unknown 06/03/2015 Admin istered Problems Problem Type SNOMED Code ICD Code Onset Dates Problem Status W/U Status Risk Notes Problem 88047130 Irritable bowel syndrome without diarrhea (K58.9) Active confirmed Problem [id number] Abdominal pain, diffuse (R10.9) Active confirmed Plan Of Treatment Future Test Test Name Order Date UPPER GI ENDOSCOPY 04/21/2012 Insurance Providers Payer Name Payer Address Payer Phone Subscriber Number Group Number Insured Name Patient Relationship to Insured Coverage Start Date Coverage End Date MEDICARE [place] [address] [place] [address] [phone] [id number] MELVIN SMITH Self - patient is the insured MEDICAID OF [facility] [address] [place] [address] [id number] MELVIN SMITH Self - patient is the insured Medical (General) History Medical History History ICD Code colonoscopy 08-20-2009--only a hyperplasti c polyp gastric ulcer/gastritis on E GD with Dr. Shaw in 1995, with H.pylori-s/p Rx with antibiotics irritable bowel syndrome fibromyalgia mitral valve prolapse COPD Denies NM,DM,CVA,renal disease Kidney stone, s/p ESWL Pancreatitis, ? due to gallstones Interstitial cystitis EGD in 05/2012 neg except fo r a HH--biopsies were negative for eosinophilic esophagitis Sees Dr. Kasper from ENT for the swallow ing issues as well--had a neg w/u Describes a normal U/S of e abdomen at [facility]; had a normal UGI in 03/2013 and normal CBC and LFT's Surgical History Surgery Date(Month/Year) removal of fibroids ovarian cysts bladder suspension [facility] Benign breast biopsy
[2025-01-10 08:55] LABS: Prothrombin Time Whole Bld POC 38.4 sec (11.1-13.5); ~PT, ~INR - Anti Coag Clinic 3.2 (0.9-1.1)
--- NOTE | 2025-01-10 08:59 | MHC.OFFVISCO ---
Intake Intake Visit Reasons: Anticoagulation Allergies vancomycin (VANCOMYCIN) Allergy (Intermediate, Verified 01/10/25 08:38) ITCHING/RASH metoclopramide (From Reglan) Adverse Reaction (Intermediate, Verified 01/10/25 08:38) Nausea and Vomiting Medication List - Last Reconciled 01/10/25 by Vonda Cam RN albuterol sulfate 90 mcg/actuation 2 puffs inhalation Q4H PRN albuterol sulfate 2.5 mg inhalation Q8H PRN amlodipine 5 mg PO DAILY atorvastatin 40 mg PO DAILY blood sugar diagnostic As directed carisoprodol (Soma) 350 mg PO TID PRN cholecalciferol (vitamin D3) 25 mcg PO DAILY clopidogrel 75 mg PO DAILY cyanocobalamin (vitamin B-12) PO diclofenac sodium 1% topical enoxaparin mg See Protocol subcut ezetimibe 10 mg PO DAILY famotidine 20 mg PO BEDTIME ferrous sulfate 325 mg PO DAILY food supplemt, lactose-reduced (Boost) PO hydrocortisone 2.5% appl topical lancets As directed magnesium oxide 400 mg PO DAILY metoprolol succinate ER 50 mg PO DAILY 90 days ondansetron HCl 8 mg PO Q12H PRN oxcarbazepine 300 mg PO BID oxycodone 5 mg PO BEDTIME PRN pramipexole 1 mg PO tirzepatide (Mounjaro) mg subcut umeclidinium-vilanterol 62.5-25 mcg/actuation (Anoro Ellipta) inhalation DAILY warfarin 5 mg See Protocol PO DIRECTED Nursing Note INR 3.2 out of therapeutic range Medications and supplements reviewed Patient status: upper endo and colonoscopy r/s 02/12/25 per recommendation of cardiology Dr Chisholm, her cardiac stent is 01/30/25 - he prefers she remain on plavix until after the anniversary date of her stent placement 01/31/2024. She had been off it for her lung bx. She still feels tiered and achy, she has not started the nicotine patch, still smokes- maybe not quite as much Medications or supplements: no changes Diet: fair- doesnt eat much Denies any signs and symptoms of bleeding or clotting or unusual bruising Bleeding, bruising, clotting discussed Nutritional guidance given: have greens or 2 boost today- she opted to have 2 boosts today Dose: decrease warfarin dose next week to 7.5mg x 1 days/ 5mg x 6 days F/U INR Date : 01/21/25 ?? Patient verbalizing understanding of instructions given. Anti-Coag Initial Assessment Social Hx Patient Tobacco Use Status: Current everyday Tobacco user Tobacco use type: Cigarette alcohol intake: never Questionnaires HAS-BLED Does the patient had uncontrolled Hypertension?: No Does the patient have renal disease?: No Does the patient have liver disease?: No Does the patient have a history of stroke?: Yes Has the patient had major bleeding or predisposition to bleeding?: Yes Does the patient have labile INRs?: Yes Is the patient over 65 years of age?: Yes Is the patient on medications that gives them a predisposition to bleeding?: Yes Does the patient use alcohol?: No HAS-BLED Score: 5 CHADSVASC Age: 66-74 Gender: Female Does the patient have a history of CHF?: No Does the patient have a history of Hypertension?: Yes Does the patient have a history of Stroke/TIA/Thromboembolism?: Yes Does the patient have a history of Vascular Disease (prior VA, PAD or aortic plaque)?: Yes (CAD - SMOKER) Does the patient have a history of Diabetes?: Yes CHADS VACS Score: 7 Bharath Prediction Score Rsk VTE Active Cancer: Yes (lung lesion ) Previous VTE, excluding superficial vein thrombosis: No Reduced mobility: No Already known Thrombophilic Condition: No With-in last month Trauma and/or Surgery: No Elderly 70 year or older: Yes Heart and/or Respiratory Failure: No Acute Myocardial infarction and/or Ischemic Stroke: Yes Acute Infection and/or Rheumatologic Disorder: No Obesity (BMI 30 or greater): No Ongoing Hormonal Treatment: No Score: 5 Bharath Score less than 4; Low Risk of VTE Bharath Score 4 or greater; High Risk of VTE Coding Level of Care Code Est Patient Level 1 Diagnoses Current use of anticoagulant therapy Z79.01 Results AMB INR Fingerstick AMB INR Fingerstick 3.2 Last Edit by Vonda Cam RN on 01/10/25 08:48 manual entry Assessment & Plan Assessment & Plan (1) Current use of anticoagulant therapy: Onset Date: ~2019 Comment: (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
== END 2025-01-10 09:06 | disposition home or self-care (01) ==
PROVIDERS: PCP Internal Medicine; Visit Provider Internal Medicine Medical Oncology
DX: Z79.01 Long term (current) use of anticoagulants (principal)

== ENCOUNTER → 2025-01-10 08:19 | Outpatient (BNVA) | payer MEDICARE, OTHER, SELFPAY | PROVIDERS: PCP Internal Medicine; Visit Provider Internal Medicine Medical Oncology | DX: Z86.73 Personal history of transient ischemic attack (TIA), and cerebral infarction without residual deficits (principal); Z79.01 Long term (current) use of anticoagulants; Z51.81 Encounter for therapeutic drug level monitoring | CPT/HCPCS: 85610; 99211 ==

== ENCOUNTER 2025-01-12 09:06 | Outpatient (REF) | payer MEDICARE, OTHER, SELFPAY | END 2025-01-12 09:07 | disposition home or self-care (01) | LOC: HO.MAMMO 09:06 | PROVIDERS: PCP Internal Medicine; Visit Provider Internal Medicine | DX: Z12.31 Encounter for screening mammogram for malignant neoplasm of breast (principal) | CPT/HCPCS: 77063; 77067 ==

== ENCOUNTER → 2025-01-12 09:30 | Outpatient (BNV) | payer MEDICARE, MEDICAID, SELFPAY | PROVIDERS: PCP Internal Medicine; Visit Provider Internal Medicine | DX: Z12.31 Encounter for screening mammogram for malignant neoplasm of breast (principal) | CPT/HCPCS: 77063; 77067 ==

== ENCOUNTER 2025-01-21 09:08 | Outpatient (AMB) | payer MEDICARE, OTHER, SELFPAY ==
[2025-01-21 09:17] LABS: Prothrombin Time Whole Bld POC 33.0 sec (11.1-13.5); ~PT, ~INR - Anti Coag Clinic 2.7 (0.9-1.1)
--- NOTE | 2025-01-21 09:28 | MHC.OFFVISCO ---
Intake Intake Visit Reasons: Anticoagulation Allergies vancomycin (VANCOMYCIN) Allergy (Intermediate, Verified 01/21/25 09:09) ITCHING/RASH metoclopramide (From Reglan) Adverse Reaction (Intermediate, Verified 01/21/25 09:09) Nausea and Vomiting Medication List - Last Reconciled 01/21/25 by Catherine Bales RN albuterol sulfate 90 mcg/actuation 2 puffs inhalation Q4H PRN albuterol sulfate 2.5 mg inhalation Q8H PRN amlodipine 5 mg PO DAILY atorvastatin 40 mg PO DAILY blood sugar diagnostic As directed carisoprodol (Soma) 350 mg PO TID PRN cholecalciferol (vitamin D3) 25 mcg PO DAILY clopidogrel 75 mg PO DAILY cyanocobalamin (vitamin B-12) PO diclofenac sodium 1% topical enoxaparin mg See Protocol subcut ezetimibe 10 mg PO DAILY famotidine 20 mg PO BEDTIME ferrous sulfate 325 mg PO DAILY food supplemt, lactose-reduced (Boost) PO hydrocortisone 2.5% appl topical lancets As directed magnesium oxide 400 mg PO DAILY metoprolol succinate ER 50 mg PO DAILY 90 days ondansetron HCl 8 mg PO Q12H PRN oxcarbazepine 300 mg PO BID oxycodone 5 mg PO BEDTIME PRN pramipexole 1 mg PO tirzepatide (Mounjaro) mg subcut umeclidinium-vilanterol 62.5-25 mcg/actuation (Anoro Ellipta) inhalation DAILY warfarin 5 mg See Protocol PO DIRECTED Nursing Note INR: 2.7 in therapeutic range of 2-3 Medications and supplements reviewed No changes in health, diet, medications, or supplements, Denies any signs and symptoms of bleeding or bruising or clotting. Bleeding, bruising, clotting discussed Nutritional guidance given to balance foods that raise the INR with foods that lower it. 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
--- OUTSIDE RECORDS SUMMARY | 2025-01-21 09:32 | XMS_ITS | Patient Health Record ---
Author Organization [facility] Address [address] [place] [address] Care Team Providers Care Hospice Social Worker Name Role Phone Manuel Merrill MD Primary Care Provider Kaleb Barrera Unavailable [phone] Allergies Allergen (clinical drug ingredient) Drug/Non Drug [...] Problem Status W/U Status Risk Notes Problem [id number] Irritable bowel syndrome without diarrhea (K58.9) Active confirmed Problem [id number] Abdominal pain, diffuse (R10.9) Active confirmed Plan Of Treatment Future Test Test Name Order Date UPPER GI ENDOSCOPY 04/21/2012 Insurance Providers Payer Name Payer Address Payer Phone Subscriber Number Group Number Insured Name Patient Relationship to Insured Coverage Start Date Coverage End Date MEDICARE OF [place] [address] [place] [phone] [id number] MELVIN SMITH Self - patient is the insured [facility]ICAID [id number] [address] [place] [address] [id number] MELVIN SMITH Self - patient is the insured Medical (General) History Medical History History ICD Code colonoscopy 08-20-2009--only a hyperplasti c polyp gastric ulcer/gastritis on E GD with Dr. Shaw in 1995, with H.pylori-s/p Rx with antibiotics irritable bowel syndrome fibromyalgia mitral valve prolapse COPD Denies [place],DM,CVA,renal disease Kidney stone, s/p ESWL Pancreatitis, ? due to gallstones Interstitial cystitis EGD in 05/2012 neg except fo r a HH--biopsies were negative for eosinophilic esophagitis Sees Dr. Kasper from ENT for the swallow ing issues as well--had a neg w/u Describes a normal U/S of e abdomen at [facility]; had a normal UGI in 03/2013 and normal CBC and LFT's Surgical History Surgery Date(Month/Year) removal of fibroids ovarian cysts bladder suspension [facility] Benign breast biopsy
== END 2025-01-21 09:30 | disposition home or self-care (01) ==
PROVIDERS: PCP Internal Medicine; Visit Provider Internal Medicine Medical Oncology
DX: Z79.01 Long term (current) use of anticoagulants (principal)

== ENCOUNTER → 2025-01-21 09:08 | Outpatient (BNVA) | payer MEDICARE, OTHER, SELFPAY | PROVIDERS: PCP Internal Medicine; Visit Provider Internal Medicine Medical Oncology | DX: Z86.73 Personal history of transient ischemic attack (TIA), and cerebral infarction without residual deficits (principal); Z79.01 Long term (current) use of anticoagulants; Z51.81 Encounter for therapeutic drug level monitoring | CPT/HCPCS: 85610; 99211 ==

== ENCOUNTER 2025-01-29 09:18 | Outpatient (AMB) | payer MEDICARE, OTHER, SELFPAY ==
[2025-01-29 09:27] LABS: Prothrombin Time Whole Bld POC 35.9 sec (11.1-13.5); ~PT, ~INR - Anti Coag Clinic 3.0 (0.9-1.1)
--- NOTE | 2025-01-29 09:35 | MHC.OFFVISCO ---
Intake Intake Visit Reasons: Anticoagulation Allergies vancomycin (VANCOMYCIN) Allergy (Intermediate, Verified 01/29/25 09:20) ITCHING/RASH metoclopramide (From Reglan) Adverse Reaction (Intermediate, Verified 01/29/25 09:20) Nausea and Vomiting Medication List - Last Reconciled 01/29/25 by Vonda Cam RN albuterol sulfate 90 mcg/actuation 2 puffs inhalation Q4H PRN albuterol sulfate 2.5 mg inhalation Q8H PRN amlodipine 5 mg PO DAILY atorvastatin 40 mg PO DAILY blood sugar diagnostic As directed carisoprodol (Soma) 350 mg PO TID PRN cholecalciferol (vitamin D3) 25 mcg PO DAILY clopidogrel 75 mg PO DAILY cyanocobalamin (vitamin B-12) PO diclofenac sodium 1% topical enoxaparin mg See Protocol subcut ezetimibe 10 mg PO DAILY famotidine 20 mg PO BEDTIME ferrous sulfate 325 mg PO DAILY food supplemt, lactose-reduced (Boost) PO hydrocortisone 2.5% appl topical lancets As directed magnesium oxide 400 mg PO DAILY metoprolol succinate ER 50 mg PO DAILY 90 days ondansetron HCl 8 mg PO Q12H PRN oxcarbazepine 300 mg PO BID oxycodone 5 mg PO BEDTIME PRN pramipexole 1 mg PO tirzepatide (Mounjaro) mg subcut umeclidinium-vilanterol 62.5-25 mcg/actuation (Anoro Ellipta) inhalation DAILY warfarin 5 mg See Protocol PO DIRECTED Nursing Note INR: 3.0 in therapeutic range Medications and supplements reviewed Having colonoscopy 02/12/25 will be stopping monjaro and plavix x 1 week prior, warfarin x 5 days prior with lovenox bridge pt has instructions for colonoscopy prep and rx for lovenox Denies any signs and symptoms of bleeding or bruising or clotting. Bleeding, bruising, clotting discussed Nutritional guidance given cont same diet for now, after procedure avoid greens until INR greater than 2.0 Dose: keep same this week then decrease to 5mg daily - INR have been trending higher possibly r/t kenya F/U INR: 1 week 02/05/25 Tue day prior to warfarin hold and to determine when lovenox safe to start Patient verbalizes understanding of instructions given Anti-Coag Initial Assessment Social Hx Patient Tobacco Use Status: Current everyday Tobacco user Tobacco use type: Cigarette alcohol intake: never Coding Level of Care Code Est Patient Level 1 Diagnoses Current use of anticoagulant therapy Z79.01 Results AMB INR Fingerstick AMB INR Fingerstick 3.0 Last Edit by Vonda Cam RN on 01/29/25 09:29 manual entry Assessment & Plan Assessment & Plan (1) Current use of anticoagulant therapy: Onset Date: ~2019 Comment: (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
--- OUTSIDE RECORDS SUMMARY | 2025-01-29 09:45 | XMS_ITS | Patient Health Record ---
Author Organization [facility] Address [address] [place] [address] Care Team Providers Care Medical Accounting Clerk Name Role Phone Manuel Merrill MD Primary Care Provider Kaleb Barrera Unavailable [phone] Allergies Allergen (clinical drug ingredient) Drug/Non Drug [...] Problem Status W/U Status Risk Notes Problem [id number] Irritable bowel syndrome without diarrhea (K58.9) Active confirmed Problem [id number] Abdominal pain, diffuse (R10.9) Active confirmed Plan Of Treatment Future Test Test Name Order Date UPPER GI ENDOSCOPY 04/21/2012 Insurance Providers Payer Name Payer Address Payer Phone Subscriber Number Group Number Insured Name Patient Relationship to Insured Coverage Start Date Coverage End Date MEDICARE OF [place] [address] [place] [address] [id number] MELVIN SMITH Self - patient is the insured [facility] [address] [place] [address] [id number] MELVIN SMITH Self - patient is the insured Medical (General) History Medical History History ICD Code colonoscopy 08-20-2009--only a hyperplasti c polyp gastric ulcer/gastritis on E GD with Dr. Shaw in 1995, with H.pylori-s/p Rx with antibiotics irritable bowel syndrome fibromyalgia mitral valve prolapse COPD Denies SC,DM,CVA,renal disease Kidney stone, s/p ESWL Pancreatitis, ? due to gallstones Interstitial cystitis EGD in 05/2012 neg except fo r a HH--biopsies were negative for eosinophilic esophagitis Sees Dr. Kasper from ENT for the swallow ing issues as well--had a neg w/u Describes a normal U/S of e abdomen at [facility]; had a normal UGI in 03/2013 and normal CBC and LFT's Surgical History Surgery Date(Month/Year) removal of fibroids ovarian cysts bladder suspension CCY Appy Benign breast biopsy
== END 2025-01-29 09:40 | disposition home or self-care (01) ==
LOC: HO.ACS 09:18
PROVIDERS: PCP Internal Medicine; Visit Provider Internal Medicine Medical Oncology
DX: Z79.01 Long term (current) use of anticoagulants (principal)

== ENCOUNTER → 2025-01-29 09:18 | Outpatient (BNVA) | payer MEDICARE, OTHER, SELFPAY | PROVIDERS: PCP Internal Medicine; Visit Provider Internal Medicine Medical Oncology | DX: Z86.73 Personal history of transient ischemic attack (TIA), and cerebral infarction without residual deficits (principal); Z79.01 Long term (current) use of anticoagulants; Z51.81 Encounter for therapeutic drug level monitoring | CPT/HCPCS: 85610; 99211 ==

== ENCOUNTER 2025-02-05 08:51 | Outpatient (AMB) | payer MEDICARE, OTHER, SELFPAY ==
[2025-02-05 09:07] LABS: Prothrombin Time Whole Bld POC 32.0 sec (11.1-13.5); ~PT, ~INR - Anti Coag Clinic 2.7 (0.9-1.1)
--- OUTSIDE RECORDS SUMMARY | 2025-02-05 09:10 | XMS_ITS | Patient Health Record ---
Author Organization [facility] Address [address] [place] [address] Care Team Providers Care Client Engagement Manager Name Role Phone Manuel Merrill MD Primary Care Provider Kaleb Barrera Unavailable [phone] Allergies Allergen (clinical drug ingredient) Drug/Non Drug [...] Problem Status W/U Status Risk Notes Problem [id number] Irritable bowel syndrome without diarrhea (K58.9) Active confirmed Problem [id number] Abdominal pain, diffuse (R10.9) Active confirmed Plan Of Treatment Future Test Test Name Order Date UPPER GI ENDOSCOPY 04/21/2012 Insurance Providers Payer Name Payer Address Payer Phone Subscriber Number Group Number Insured Name Patient Relationship to Insured Coverage Start Date Coverage End Date MEDICARE OF [place] [address] [place] [phone] [id number] MELVIN SMITH Self - patient is the insured [facility] [address] [place] [address] [id number] MELVIN SMITH Self - patient is the insured Medical (General) History Medical History History ICD Code colonoscopy 08-20-2009--only a hyperplasti c polyp gastric ulcer/gastritis on E GD with Dr. Shaw in 1995, with H.pylori-s/p Rx with antibiotics irritable bowel syndrome fibromyalgia mitral valve prolapse COPD Denies [place],DM,CVA,renal disease Kidney stone, s/p ESWL Pancreatitis, ? due to gallstones Interstitial cystitis EGD in 05/2012 neg except fo r a HH--biopsies were negative for eosinophilic esophagitis Sees Dr. Kasper from ENT for the swallow ing issues as well--had a neg w/u Describes a normal U/S of e abdomen at [facility]; had a normal UGI in 03/2013 and normal CBC and LFT's Surgical History Surgery Date(Month/Year) removal of fibroids ovarian cysts bladder suspension CCY Appy Benign breast biopsy
--- OUTSIDE RECORDS SUMMARY | 2025-02-05 09:11 | XMS_ITS | Encounter Summary ---
Author Organization [facility] Address [address] [place] [address] Phone Care Team Providers Care Rating Officer Name Role Phone Manuel Merrill MD Primary Care Provider [phone] Manuel Merrill MD Unavailable [phone] LainareyaNurys MD Unavailable Earnest Camarillo MD Unavailable [phone] Jany Katz NP Unavailable Julio Cesar Ferguson MD Unavailable [phone] David Gonzáles MD Unavailable Waqar Barrera MD Unavailable Raad Chisholm MD Unavailable [phone] Jude Cordoba MD Unavailable Encounter Details Date Type Department Care Team (Late st Contact Info) Description 01/29/2025 Orders Only [facility] [address] [place] [address] Provider, MD [place] [address] [place] [address] Social History Tobacco Use Types Packs/Day Years Used Date Smoking Tobacco: Every Day Cigarettes 0.3 58.6 Started: 1969 Passive Smoke Exposure: Current Smokeless Tobacco: Never Comments:6 cigarette QD-note d 04/16/24 4 cigarettes QD-05/29/24 2 cigarettes QD-10/30/24 Alcohol Use Standard Drinks/Week Comments Not Currently 0 (1 standard drink = 0.6 oz pur e alcohol) Child or Family Care Answer Date Record ed Do you have problems with on e of the following making it difficult for you to work, study, or receive health care? No 12/09/2020 Education Answer Date Recorded Are you interested in more education? Not on ruiz e 12/13/2022 Are you concerned about learning? Not on file 12/13/2022 No 12/13/2022 No 12/13/2022 Food Answer Date Recorded Within the past 6 months we worried whether our food would run out before we got money to buy more. Never True 12/09/2020 Within the past 6 months the food we bought just didn't last and we didn't have enough money to get more. Never True Residential Stability Answer Date Recor ded What is your housing situation today? I have cecilia servin 12/09/2020 How many times have you moved in the past 12 tue th? One time 12/09/2020 06 Are you worried that in t he next 2 months, you may not have your own housing to live in? No 12/09/2020 Paying for Meds Answer Date Recorded Do you have trouble paying for medicines? No 12/09/2020 Paying Utility Bills Answer Date Record ed Do you have trouble paying your heating or elect ricity bill? No 12/09/2020 Transportation Answer Date Recorded Has the lack of transportati on kept you from medical appointments or from getting medications? No 12/09/2020 Unemployment Answer Date Recorded Are you currently unemployed or working on a part-time or temporary basis, and looking for work? No 12/09/2020 Digital Access Answer Date Recorded No 12/07/2022 No 12/07/2022 Reliable internet access at home? Not on file 12/07/2022 Device with a working camera? Not on file Intimate Partner Violence Answer Date R ecorded Denied Basic Needs Not on file 01/17/2024 In the past 12 months have y ou been in a relationship with a person who hurts, threatens, or tries to control you? No 01/17/2024 Worried food would run out Not on file 01/16 In the past 12 months have y ou been in a relationship with a person who hurts, threatens, or tries to control you? No 01/17/2024 Comments No Sex and Gender Information Value Date Recorded Sex Assigned at Female 07/25/2017 9:38 AM EST Legal Sex Female 9:58 PM EDT Gender Identity Female 07/25/2017 9:38 AM EST Sexual Orientation Straight 07/25/2017 9: 38 AM EST Occupation Industry Job Start Date Job End Date retired Not on file Not on file Not on file documented as of this encounter Plan of Treatment Upcoming Encounters Date Type Department Care Team (Late st Contact Info) Description 03/08/2025 10:30 AM EDT Office Visit [facility] [address] [place] [address] Manuel Merrill MD [address] [place] [address] [email or web address] 08/09/2025 11:00 AM EST Office Visit [facility] [address] [place] [address] Salima López MD [address] [place] [address], [address] [place] [address] documented as of this encounter Procedures Procedure Name Priority Date/Time Associated Diagnosis Comments MAMMOGRAPHY Routine 01/12/2025 9:53 AM EDT documented in this encounter Results * MAMMOGRAPHY FOR RESULT ENTRY ONLY (01/12/2025 9:53 AM EDT) us Historical Provider HEALTH MAINTENANCE Final Result documented in this encounter Visit Diagnoses Not on filedocumented in this encounter Additional Health Concerns Assessment Noted Time PHQ-9 Depression Total Score: 16 09/05/2 021 9:05 AM EST PHQ-2 Depression Total Score: 0 01/17/20 24 10:35 AM EDT documented as of this encounter Care Teams Rating Officer Relationship Specialty Start Date End Date Manuel Merrill MD [address] [place] [address] [email or web address] PCP - General 06/16/17 Manuel Merrill MD [address] [place], [place] [email or web address] Insurance Assigned Provider 10/22/23 Nurys Nguyen MD [address] [place] [address] Neurology 11/22/19 Earnest Camarillo MD [address] [place] [address] Dr [address] [place] [address] [phone] Neurology 03/28/20 Jany Katz NP [address] [place] [address] Family Medicine 03/28/20 Julio Cesar Ferguson MD [address] [place] [address] 04/04/20 David Gonzáles MD [address] [place] [address] [email or web address] Neurology 08/04/20 Waqar Barrera MD [address] [place] [address] Cardiology 08/08/20 Raad Chisholm MD [address] [place] [address] [place] [address] Cardiology 09/05/20 Jude Cordoba MD [address] [place] [address] Orthopedic Surgery 08/29/23 documented as of this encounter Additional Source Comments The information contained in this document represents components of the legal health record. It is not the complete legal health record.[facility]
--- NOTE | 2025-02-05 09:23 | MHC.OFFVISCO ---
Intake Intake Visit Reasons: Anticoagulation Allergies vancomycin (VANCOMYCIN) Allergy (Intermediate, Verified 02/05/25 09:01) ITCHING/RASH metoclopramide (From Reglan) Adverse Reaction (Intermediate, Verified 02/05/25 09:01) Nausea and Vomiting Medication List - Last Reconciled 02/05/25 by Catherine Bales, RN albuterol sulfate 90 mcg/actuation 2 puffs inhalation Q4H PRN albuterol sulfate 2.5 mg inhalation Q8H PRN amlodipine 5 mg PO DAILY atorvastatin 40 mg PO DAILY blood sugar diagnostic As directed carisoprodol (Soma) 350 mg PO TID PRN cholecalciferol (vitamin D3) 25 mcg PO DAILY clopidogrel 75 mg PO DAILY cyanocobalamin (vitamin B-12) PO diclofenac sodium 1% topical enoxaparin mg See Protocol subcut ezetimibe 10 mg PO DAILY famotidine 20 mg PO BEDTIME ferrous sulfate 325 mg PO DAILY food supplemt, lactose-reduced (Boost) PO hydrocortisone 2.5% appl topical lancets As directed magnesium oxide 400 mg PO DAILY metoprolol succinate ER 50 mg PO DAILY 90 days ondansetron HCl 8 mg PO Q12H PRN oxcarbazepine 300 mg PO BID oxycodone 5 mg PO BEDTIME PRN pramipexole 1 mg PO tirzepatide (Mounjaro) mg subcut umeclidinium-vilanterol 62.5-25 mcg/actuation (Anoro Ellipta) inhalation DAILY warfarin 5 mg See Protocol PO DIRECTED Nursing Note INR: 2.7 in therapeutic range of 2-3 Pt to have colonoscopy/upper endo 02/12/25 with 5 day hold of warfarin and lovenox bridging. Instructions per Dr Merrill. Medications and supplements reviewed No changes in health, diet, medications, or supplements, Denies any signs and symptoms of bleeding or bruising or clotting. Bleeding, bruising, clotting discussed Nutritional guidance given Dose: usual dose of 5mg today. Will start holding tomorrow 02/06, no warfarin or lovenox 02/07, starting lovenox 60mg bid on 02/08 with last dose morning of 02/11, procedure on 02/12. When restarting warfarin, will take 7.5mg X 2 days then 5mg daily until recheck 02/18. Pt will start lovenox after procedure as ordered when GI says it is okay. F/U INR: 02/18/25 Patient verbalizes understanding of instructions read back given Anti-Coag Initial Assessment Social Hx Patient Tobacco Use Status: Current everyday Tobacco user Tobacco use type: Cigarette alcohol intake: never Coding Level of Care Code Est Patient Level 1 Diagnoses Current use of anticoagulant therapy Z79.01 Assessment & Plan Assessment & Plan (1) Current use of anticoagulant therapy: Onset Date: ~2019 Comment: (due to Stroke with PFO and factor 5 leiden) Code(s): Z79.01 - longterm (current) use of anticoagulants Category: Medical
== END 2025-02-05 09:30 | disposition home or self-care (01) ==
LOC: HO.ACS 08:51
PROVIDERS: PCP Internal Medicine; Visit Provider Internal Medicine Medical Oncology
DX: Z79.01 Long term (current) use of anticoagulants (principal)

== ENCOUNTER → 2025-02-05 08:51 | Outpatient (BNVA) | payer MEDICARE, OTHER, SELFPAY | PROVIDERS: PCP Internal Medicine; Visit Provider Internal Medicine Medical Oncology | DX: Z86.73 Personal history of transient ischemic attack (TIA), and cerebral infarction without residual deficits (principal); Z79.01 Long term (current) use of anticoagulants; Z51.81 Encounter for therapeutic drug level monitoring | CPT/HCPCS: 85610; 99211 ==

== ENCOUNTER 2025-02-12 12:58 | Day surgery (SDC) | payer MEDICARE, OTHER, SELFPAY ==
--- NOTE | 2025-02-11 12:10 | HO.ANESPROP2 ---
HPI - Anesthesia Eval Consult details Narrative: 69yo F for Upper Endoscopy and Colonoscopy [place] for: Pacer in situ for sinus pause CAD with stenting of the RCA January 2024 Last office visit 11/2024 with plan to continue plavix until 01/30/2025 Coumadin for Factor V, PFO, CVA - to bridge according to workload messages Anesthesia Pre-Procedure Meds Is the patient on any of the following meds?: GLP1/DPP4 PMFSH Active Problems Active Problems: All Active Problems Lesion of lung (Acute) Iron deficiency anemia (Acute) Skin lesion of face (Acute) Fibromyalgia, primary (Acute) Lower extremity edema (Acute) History of colon polyps (Acute ~2009) CAD (coronary artery disease) (Acute) Postprandial distress syndrome (Acute) Atypical chest pain (Acute) Cellulitis of nose, external (Acute) Nausea (Acute) Abdominal pain (Acute) Fatigue (Acute) Tubular adenoma of colon (Acute) Esophageal dysmotility (Acute) GERD with esophagitis (Acute) Sinus tachycardia (Acute) Hypersomnia (Acute) Sinus pause (Acute) Dizziness (Acute) Cardiac pacemaker in situ (Acute) Dysphagia (Acute) Chronic diarrhea (Acute) Weight loss (Acute) Early satiety (Acute) Personal history of nicotine dependence (Acute) Current use of anticoagulant therapy (Acute ~2019) History of CVA (cerebrovascular accident) (Acute ~2019) PFO (patent foramen ovale) (Acute ~2019) HTN (hypertension) (Acute) Hyperlipidemia (Acute) Obstructive sleep apnea on CPAP (Acute ~2008) Osteopenia (Acute ~2018) Past Medical History Medical History Coronary artery calcification seen on CAT scan History of colon polyps (~2009) Type II diabetes mellitus, well controlled Personal history of nicotine dependence Factor 5 Leiden mutation, heterozygous Obstructive sleep apnea on CPAP (~2008) Osteopenia (~2018) Pacemaker (~2021) History of CVA (cerebrovascular accident) (~2019) Hyperlipidemia PFO (patent foramen ovale) (~2019) HTN (hypertension) COPD (chronic obstructive pulmonary disease) Current use of anticoagulant therapy (~2019) Family History Family History Mother Stroke Multiple sclerosis Diabetes Father CAD (coronary artery disease) Family history of problems with anesthesia: No Surgical History Surgical History Stented coronary artery S/P cardiac cath Hx of cystoscopy Hx of blepharoplasty History of esophagogastroduodenoscopy (EGD) History of colonoscopy History of unilateral oophorectomy History of cholecystectomy (~2000) History of bladder surgery (~1999) History of pacemaker (~2021) History of Problems with Anesthesia: No Social History Social History Alcohol intake: never Patient Tobacco Use Status: Current everyday Tobacco user Tobacco use type: Cigarette Cigarettes Per Day: 3 Years Smoked: 40 +/- e-Cigarette/Vaping Use: Currently Using Healthcare MarketMaker service: No Current occupational status: retired [employer] Allergies Allergy/AdvReac Type Severity Reaction Status Date / Time vancomycin (VANCOMYCIN) Allergy Intermediate ITCHING/ELOY Verified 02/18/25 09:08 H metoclopramide (From Reglan) AdvReac Intermediate Nausea and Verified 02/18/25 09:08 Vomiting Home Medications ?Medication ?Instructions ?Recorded ?Confirmed ?Last Taken ?Type albuterol sulfate 90 mcg/actuation 2 puff inhalation Q4H PRN 07/02/20 02/05/25 10/04/23 History aerosol inhaler Shortness Of Breath atorvastatin 40 mg tablet 40 mg PO DAILY 07/21/20 02/05/25 Unknown History cholecalciferol (vitamin D3) 25 25 mcg PO DAILY 12/16/20 02/05/25 Unknown History mcg (1,000 unit) capsule blood sugar diagnostic #10 ea 01/14/21 02/05/25 Unknown History albuterol sulfate 2.5 mg/3 mL 2.5 mg inhalation Q8H PRN wheezing 03/05/22 02/05/25 Unknown History (0.083 %) solution for nebulization warfarin 5 mg tablet 5 mg PO DIRECTED 03/23/22 02/18/25 02/05/25 History Held on 02/12/25. Instructions: Resume on 02/12/25. Ok to resume warfarin tonight ondansetron HCl 8 mg tablet 8 mg PO Q12H PRN nausea and 09/08/22 02/05/25 Unknown History vomiting food supplemt, lactose-reduced PO 11/11/22 02/05/25 Unknown History [Boost] hydrocortisone 2.5 % topical cream appl topical 12/31/22 02/05/25 Unknown History oxcarbazepine 150 mg tablet 300 mg PO BID 12/31/22 02/05/25 10/04/23 History oxycodone 5 mg tablet 5 mg PO BEDTIME PRN 05/23/23 02/05/25 Unknown History diclofenac sodium 1 % topical gel topical 10/19/23 02/05/25 Unknown History carisoprodol 350 mg tablet (Soma) 350 mg PO TID PRN 06/07/24 02/05/25 Unknown History magnesium oxide 400 mg PO DAILY 07/04/24 02/05/25 Unknown History umeclidinium 62.5 mcg-vilanterol inhalation DAILY 08/16/24 02/05/25 02/12/25 History 25 mcg/actuation powdr for inhalation (Anoro Ellipta) tirzepatide 10 mg/0.5 mL mg subcut 10/02/24 02/05/25 02/03/25 History subcutaneous pen injector (Mounjaro) cyanocobalamin (vitamin B-12) PO 10/09/24 02/05/25 Unknown History lancets 33 gauge #100 ea 10/12/24 02/05/25 Unknown History pramipexole 1 mg tablet 1 mg PO 11/08/24 02/05/25 Unknown History enoxaparin 60 mg/0.6 mL mg subcut 01/03/25 02/18/25 02/11/25 History subcutaneous syringe Exam Pertinent Lab Results Pertinent Lab Results: Laboratory Tests 12/29/24 07:16 WBC 8.7 Hgb 14.0 Hct 41.4 Plt Count 294 Sodium 143 Potassium 4.3 Chloride 107 Carbon Dioxide 26 BUN 13 Creatinine 0.79 Assessment and Plan Assessment Anesthesia Assessment: Chart Reviewed Final Anesthetic Review Family History of Problems with Anesthesia: No History of Problems with Anesthesia: No
--- NOTE | 2025-02-12 13:14 | MHC.SHP ---
Pre-Procedural Eval Section A - 24 Hr Update-Section A only Date of Service: 02/12/25 The patient is an INPATIENT: No The patient has been examined within 24 hours of the surgical procedure. The History & Physical has been completed within 30 days and I have reviewed it.: No Section B - Complete if H&P > 30 days Chief Complaint: hx colon polyps,anemia Relevant Family History (Specify if Yes): No Relevant Social History: Tobacco Use Present Medications: see Short Stay Collaborative assessment Medical History: Significant History (History of colon polyps (~2009) Type II diabetes mellitus, well controlled Personal history of nicotine dependence Factor 5 Leiden mutation, heterozygous Obstructive sleep apnea on CPAP (~2008) Osteopenia (~2018) Pacemaker (~2021) History of CVA (cerebrovascular accident) (~2019) Hyperlipidemia PFO ) History of Previous Operations: Relevant previous surgery/procedure and date(s) (Hx of cystoscopy Hx of blepharoplasty History of esophagogastroduodenoscopy (EGD) History of colonoscopy History of unilateral oophorectomy History of cholecystectomy (~2000) History of bladder surgery (~1999) History of pacemaker (~2021)) Allergies: Allergies Allergy/AdvReac Type Severity Reaction Status Date / Time vancomycin (VANCOMYCIN) Allergy Intermediate ITCHING/ELOY Verified 02/05/25 09:01 H metoclopramide (From Reglan) AdvReac Intermediate Nausea and Verified 02/05/25 09:01 Vomiting Review of Systems Sugical H&P ROS: Negative: Constitution, Cardiovascular, Respiratory and Gastrointestinal Exam Surgical H&P Exam: Normal: Heart, Normal: Lungs, Normal: Extremities and Normal: Abdomen Plan Diagnosis/Plan: Unchanged I have reviewed the history and physical and performed a pertinent physical examination on my patient. No changes have occurred unless specified. Time Spent With Patient Time: Total time managing care of this patient today ____ minutes.
[2025-02-12 13:20] VITALS: BMI 24.4
[2025-02-12 13:31] VITALS: BP 95/57; PULSE 96; RESP 16; TEMP 36.8; O2SAT 94
[2025-02-12 13:39] LABS: Glucose, Whole Blood 122 mg/dL (60-115)
[2025-02-12] MEDS: Lactated Ringers 1,000 ML 100 ML IVCONT (13:44)
[2025-02-12 13:51] LABS: INTERNATIONAL NORM RATIO 1.0 (0.9-1.1); Prothrombin Time 11.0 SEC (10.9-12.4)
--- NOTE | 2025-02-12 13:58 | HO.ANESPROP2 ---
[facility] Active Problems Active Problems: All Active Problems (Updated 11/29/24 @ 00:00 by Ritu Rodriguez) Lesion of lung (Acute) Iron deficiency anemia (Acute) Skin lesion of face (Acute) Fibromyalgia, primary (Acute) Lower extremity edema (Acute) History of colon polyps (Acute ~2009) CAD (coronary artery disease) (Acute) Postprandial distress syndrome (Acute) Atypical chest pain (Acute) Cellulitis of nose, external (Acute) Nausea (Acute) Abdominal pain (Acute) Fatigue (Acute) Tubular adenoma of colon (Acute) Esophageal dysmotility (Acute) GERD with esophagitis (Acute) Sinus tachycardia (Acute) Hypersomnia (Acute) Sinus pause (Acute) Dizziness (Acute) Cardiac pacemaker in situ (Acute) Dysphagia (Acute) Chronic diarrhea (Acute) Weight loss (Acute) Early satiety (Acute) Personal history of nicotine dependence (Acute) Current use of anticoagulant therapy (Acute ~2019) History of CVA (cerebrovascular accident) (Acute ~2019) PFO (patent foramen ovale) (Acute ~2019) HTN (hypertension) (Acute) Hyperlipidemia (Acute) Obstructive sleep apnea on CPAP (Acute ~2008) Osteopenia (Acute ~2018) Past Medical History Medical History Coronary artery calcification seen on CAT scan History of colon polyps (~2009) Type II diabetes mellitus, well controlled Personal history of nicotine dependence Factor 5 Leiden mutation, heterozygous Obstructive sleep apnea on CPAP (~2008) Osteopenia (~2018) Pacemaker (~2021) History of CVA (cerebrovascular accident) (~2019) Hyperlipidemia PFO (patent foramen ovale) (~2019) HTN (hypertension) COPD (chronic obstructive pulmonary disease) Current use of anticoagulant therapy (~2019) Patient : No Family History Family History Mother Stroke Multiple sclerosis Diabetes Father CAD (coronary artery disease) Family history of problems with anesthesia: No Surgical History Surgical History Stented coronary artery S/P cardiac cath Hx of cystoscopy Hx of blepharoplasty History of esophagogastroduodenoscopy (EGD) History of colonoscopy History of unilateral oophorectomy History of cholecystectomy (~2000) History of bladder surgery (~1999) History of pacemaker (~2021) History of Problems with Anesthesia: No Social History Social History Alcohol intake: never Patient Tobacco Use Status: Current everyday Tobacco user Tobacco use type: Cigarette Cigarettes Per Day: 3 Years Smoked: 40 +/- e-Cigarette/Vaping Use: Currently Using Use of substances other than those prescribed or required for medical reasons: No Are you DNR?: No Advance Directives: No Advance Directives Information Provided: Yes Patient : No : No Poor oral hygiene: No service: No Current occupational status: retired Meds Allergies Allergy/AdvReac Type Severity Reaction Status Date / Time vancomycin (VANCOMYCIN) Allergy Intermediate ITCHING/ELOY Verified 02/05/25 09:01 H metoclopramide (From Reglan) AdvReac Intermediate Nausea and Verified 02/05/25 09:01 Vomiting Active Medications: Current Medications Albuterol Sulfate (Albuterol Sulfate (0.083%) 2.5 Mg/3 Ml Vial.Neb) 2.5 mg INHALE ONCE PRN PRN Reason: Shortness of Breath/Wheezing Lactated Ringer's (Lr) 1,000 mls @ 100 mls/hr IVCONT .Q10H TIMO Last Admin: 02/12/25 13:44 Dose: 100 mls/hr Home Medications ?Medication ?Instructions ?Recorded ?Confirmed ?Last Taken ?Type albuterol sulfate 90 mcg/actuation 2 puff inhalation Q4H PRN 07/02/20 02/05/25 10/04/23 History aerosol inhaler Shortness Of Breath atorvastatin 40 mg tablet 40 mg PO DAILY 07/21/20 02/05/25 Unknown History cholecalciferol (vitamin D3) 25 25 mcg PO DAILY 12/16/20 02/05/25 Unknown History mcg (1,000 unit) capsule blood sugar diagnostic #10 ea 01/14/21 02/05/25 Unknown History albuterol sulfate 2.5 mg/3 mL 2.5 mg inhalation Q8H PRN wheezing 03/05/22 02/05/25 Unknown History (0.083 %) solution for nebulization warfarin 5 mg tablet 5 mg PO DIRECTED 03/23/22 02/05/25 02/05/25 History ondansetron HCl 8 mg tablet 8 mg PO Q12H PRN nausea and 09/08/22 02/05/25 Unknown History vomiting food supplemt, lactose-reduced PO 11/11/22 02/05/25 Unknown History [Boost] hydrocortisone 2.5 % topical cream appl topical 12/31/22 02/05/25 Unknown History oxcarbazepine 150 mg tablet 300 mg PO BID 12/31/22 02/05/25 10/04/23 History oxycodone 5 mg tablet 5 mg PO BEDTIME PRN 05/23/23 02/05/25 Unknown History diclofenac sodium 1 % topical gel topical 10/19/23 02/05/25 Unknown History carisoprodol 350 mg tablet (Soma) 350 mg PO TID PRN 06/07/24 02/05/25 Unknown History magnesium oxide 400 mg PO DAILY 07/04/24 02/05/25 Unknown History umeclidinium 62.5 mcg-vilanterol inhalation DAILY 08/16/24 02/05/25 02/12/25 History 25 mcg/actuation powdr for inhalation (Anoro Ellipta) tirzepatide 10 mg/0.5 mL mg subcut 10/02/24 02/05/25 02/03/25 History subcutaneous pen injector (Mounjaro) cyanocobalamin (vitamin B-12) PO 10/09/24 02/05/25 Unknown History lancets 33 gauge #100 ea 10/12/24 02/05/25 Unknown History pramipexole 1 mg tablet 1 mg PO 11/08/24 02/05/25 Unknown History enoxaparin 60 mg/0.6 mL mg subcut 01/03/25 02/05/25 02/11/25 History subcutaneous syringe Exam Height,Weight and Vital Signs: Height 4 ft 11 in Weight 54.9 kg Last Vital Signs Temp 98.2 F 02/12/25 13:31 Pulse 96 02/12/25 13:31 Resp 16 02/12/25 13:31 BP 95/57 L 02/12/25 13:31 Pulse Ox 94 02/12/25 13:31 O2 Del Method Room Air 02/12/25 13:31 Pertinent Lab Results Pertinent Lab Results: Laboratory Tests 02/12/25 02/12/25 13:26 13:35 PT 11.0 INR 1.0 POC Glucose 122 H Airway Mallampati Class: II TM Dist: >3cm Neck ROM: Full Heart: RRR Lungs: CTA Assessment and Plan Assessment Anesthesia Assessment: Anesthesia Plan Discussed and Chart Reviewed Final Anesthetic Review Family History of Problems with Anesthesia: No History of Problems with Anesthesia: No NPO: Yes ASA Class: III Final Preanesthetic Review: Meds/Allgs Chart Reviewed, Consent Obtained/Reviewed and Anes Risks/Benef Reviewed Patient Risk: Intermediate Procedure Risk: Low Anesthetic Plan Anesthetic Plan: MAC: Disposition: Standard PACU
[2025-02-12 15:05] VITALS: BP 86/38; PULSE 81; RESP 16; TEMP 36.4; O2SAT 95
--- NOTE | 2025-02-12 15:08 | HO.OPN-COLON ---
Colonoscopy Operative Note Operative Note Date of Service: 02/12/25 Narrative: FLEXIBLE TRANSORAL UPPER GASTROINTESTINAL ENDOSCOPY WITH BIOPSIES AND COLONOSCOPY TILL CECUM WITH BIOPSIES AND SNARE POLYPECTOMY Pre-op diagnosis: Surveillance for colon polyps, anemia Post-op diagnosis: Hiatal hernia, Gastritis, Colon Polyps, Diverticulosis, hemorrhoids Endoscopist:? Gracie Jennings MD Anesthesia:?MAC UPPER ENDOSCOPY Consent: Indications for the procedure and potential complications of bleeding, perforation, reaction to medications and missed diagnosis were discussed with the patient and informed consent was obtained. Instrument: Olympus GIF H 190 mid size upper endoscope Monitoring: Vital signs and clinical assessment, continuous EKG monitoring, Pulse oximetry, Carbon Dioxide monitoring and blood pressure monitoring were done throughout the procedure. Procedure: The patient was placed in the left lateral decubitis position and pre-procedure medications were administered and a bite block was placed. The endoscope was inserted into the mouth and advanced under direct vision to the third part of duodenum. A careful inspection was made as the upper endoscope was withdrawn including a retroflexed examination of the proximal stomach; Findings and interventions are described below. Findings: Larynx: Normal Esophagus: GE junction at 35 cms, hiatal hernia 35 to 37 cms. No esophagitis or Hurtado's. Stomach: Moderate diffuse gastric erythema - biopsies were obtained from the gastric body and antrum. Grade 2 flap valve on retroflexed examination of the cardia. Duodenum: Normal bulb and descending duodenum Intervention: Biopsies as noted above COLONOSCOPY PROCEDURE NOTE Instrument: Olympus PCF H 190 L variable stiffness pediatric colonoscope Monitoring: Vital signs and clinical assessment, intermittent blood pressure monitoring, continuous EKG monitoring, Pulse oximetry and Carbon Dioxide monitoring were done throughout the procedure. Please see anesthesia flowsheet. Colon withdrawl time was 15 minutes. Procedure: The patient was placed in the left lateral decubitis position and pre-procedure medications were administered. After a digital rectal examination of the ano-rectum, the video colonoscope was inserted into the rectum and advanced through the colon to the cecum. The colonoscope was slowly withdrawn in a retrograde panoramic fashion and the colon mucosa was carefully examined including a retroflexed view of the rectum. Findings and interventions are described below. Procedure Difficulty: There was narrowing of the sigmoid colon due to severe diverticulosis which was navigated with some difficulty Findings: Terminal Ileum: Not evaluated Cecum: Normal Ascending Colon: A 3-4 mm sessile polyp in the proximal AC - removed with a cold snare and polyp was not retrieved Scattered moderate diverticulosis throughout the entire colon Transverse Colon: A 4-5 mm superficial linear ulcer - biopsies were obtained. Scattered moderate diverticulosis throughout the entire colon Descending Colon: Scattered moderate diverticulosis throughout the entire colon Sigmoid Colon: Severe diverticulosis with luminal narrowing Rectum: Normal Ano-rectum: Moderate internal hemorrhoids Colon preparation: Good after copious irrigation (pt took 1/2 the prep since per patient the stool output was clear. [place] Bowel Preparation Scale Right colon; 2 Transverse colon: 2 Left colon; 2 (0 = Unprepared colon segment with mucosa not seen due to solid stool that cannot be cleared. 1 = Portion of mucosa of the colon segment seen, but other areas of the colon segment not well seen due to staining, residual stool and/or opaque liquid. 2 = Minor amount of residual staining, small fragments of stool and/or opaque liquid, but mucosa of colon segment seen well. 3 = Entire mucosa of colon segment seen well with no residual staining, small fragments of stool or opaque liquid) Impression and Post Procedure Diagnosis: Endoscopy Findings: ESOPHAGUS: Hiatal hernia. No esophagitis or Hurtado's. STOMACH: Diffuse gastritis DUODENUM: Normal Colonoscopy Findings: One tiny polyp was removed A 4-5 mm superficial linear ulcer - biopsies were obtained. Moderate diverticulosis seen in the entire colon Moderate hemorrhoids on retroflexed exam. No source found for anemia. Of note recent lab studies showed resolution of anemia and pt states she discontinued taking iron. Plan: Pt to schedule a FU appointment with Dr Mcadams Repeat Colonoscopy in 5 years if pt remains in stable health or can discontinue surveillance colonoscopies. If pt has recurrent LULU, can consider further evaluation with Capsule study. A summary of above findings and relevant handouts were given to the patient. BIOPSIES SHOWED: A. Stomach, biopsy: Superficial fragments of gastric mucosa with mild chronic inactive inflammation and focal intestinal metaplasia; negative for dysplasia; no Helicobacter organisms identified. B. Stomach, body, biopsy: Oxyntic mucosa within normal limits; no Helicobacter organisms seen. C. Colon, transverse, biopsy: Colonic mucosa with small lymphoid aggregate; otherwise within normal limits Letter sent with the patient with biopsy results. Patient placed on the colonoscopy recall list for repeat colonoscopy in 5 years.
[2025-02-12 15:20] VITALS: BP 96/42; PULSE 82; RESP 16; TEMP 36.4; O2SAT 97
--- NOTE | 2025-02-12 17:00 | HO.POSTANES ---
Post Anesthesia Evaluation Post Anesthesia Evaluation Date of Service: 02/12/25 Vital Signs: Vital Signs Temp Pulse Resp BP Pulse Ox O2 Del Method 02/12/25 15:20 97.5 F 82 16 96/42 L 97 Room Air 02/12/25 15:05 97.6 F 81 16 86/38 L 95 Room Air 02/12/25 13:31 98.2 F 96 16 95/57 L 94 Room Air Anesthesia: Monitored Mental Status: Awake Pain Control: Satisfactory Nausea/Vomiting: None Hydration: Adequate Anesthesia-Related Issues: No Anes. Related Issues
== END 2025-02-12 15:45 | disposition home or self-care (01) ==
PROVIDERS: Nurse Practitioner; PCP Internal Medicine; Visit Provider Internal Medicine Gastroenterology
PROC: (CPT 45385; principal; 2025-02-12 14:00)
DX: D50.9 Iron deficiency anemia, unspecified (principal); Z86.0101 Personal history of adenomatous and serrated colon polyps; K63.5 Polyp of colon; K57.30 Diverticulosis of large intestine without perforation or abscess without bleeding; K64.8 Other hemorrhoids; K29.50 Unspecified chronic gastritis without bleeding; K44.9 Diaphragmatic hernia without obstruction or gangrene; G47.33 Obstructive sleep apnea (adult) (pediatric); E11.9 Type 2 diabetes mellitus without complications; D68.51 Activated protein C resistance; E78.5 Hyperlipidemia, unspecified; Q21.12 Patent foramen ovale; Z95.0 Presence of cardiac pacemaker; M85.80 Other specified disorders of bone density and structure, unspecified site; Z86.73 Personal history of transient ischemic attack (TIA), and cerebral infarction without residual deficits; Z79.01 Long term (current) use of anticoagulants; Z79.85 Long-term (current) use of injectable non-insulin antidiabetic drugs; Z99.89 Dependence on other enabling machines and devices; Z79.899 Other long term (current) drug therapy; Z88.1 Allergy status to other antibiotic agents; Z88.8 Allergy status to other drugs, medicaments and biological substances; F17.210 Nicotine dependence, cigarettes, uncomplicated; Z98.890 Other specified postprocedural states
CPT/HCPCS: 45385; 45380; 43239; 36415; 82947; 85610; 88305; 88313; 88342; J2003; J2250; J2704

== ENCOUNTER → 2025-02-12 12:58 | Outpatient (BNV) | payer MEDICARE, MEDICAID, SELFPAY | PROVIDERS: PCP Internal Medicine; Visit Provider Internal Medicine Gastroenterology | DX: K44.9 Diaphragmatic hernia without obstruction or gangrene (principal); K29.70 Gastritis, unspecified, without bleeding; Z12.11 Encounter for screening for malignant neoplasm of colon; K63.5 Polyp of colon; K57.90 Diverticulosis of intestine, part unspecified, without perforation or abscess without bleeding; K64.8 Other hemorrhoids | CPT/HCPCS: 43239; 45385 ==

== ENCOUNTER 2025-02-18 08:59 | Outpatient (AMB) | payer MEDICARE, OTHER, SELFPAY ==
[2025-02-18 09:13] LABS: Prothrombin Time Whole Bld POC 24.0 sec (11.1-13.5); ~PT, ~INR - Anti Coag Clinic 2.0 (0.9-1.1)
--- NOTE | 2025-02-18 09:24 | MHC.OFFVISCO ---
Intake Intake Visit Reasons: Anticoagulation Allergies vancomycin (VANCOMYCIN) Allergy (Intermediate, Verified 02/18/25 09:08) ITCHING/RASH metoclopramide (From Reglan) Adverse Reaction (Intermediate, Verified 02/18/25 09:08) Nausea and Vomiting Nursing Note INR: 2.0 in therapeutic range of 2-3 S/P colonoscopy 02/12/25 Medications and supplements reviewed No changes in health, diet, medications, or supplements, Denies any signs and symptoms of bleeding or bruising or clotting. Bleeding, bruising, clotting discussed Nutritional guidance given Dose: increase today's dose to 7.5mg (5mg) then 5mg X 6 days and 7.5mg X 1 day (Sun) F/U INR: 2 weeks Patient verbalizes understanding of instructions given Anti-Coag Initial Assessment Social Hx Patient Tobacco Use Status: Current everyday Tobacco user Tobacco use type: Cigarette alcohol intake: never Coding Level of Care Code Est Patient Level 2 Diagnoses Current use of anticoagulant therapy Z79.01 Time Spent (min) 30 Comment s/p colonoscopy, dose reviewed, instructions given Assessment & Plan Assessment & Plan (1) Current use of anticoagulant therapy: Onset Date: ~2019 Comment: (due to Stroke with PFO and factor 5 leiden) Code(s): Z79.01 - retirement (current) use of anticoagulants Category: Medical
--- OUTSIDE RECORDS SUMMARY | 2025-02-18 09:24 | XMS_ITS | Encounter Summary ---
Author Organization [facility] Address [address] [place] [address] Phone Care Team Providers Care Dynamometer Tester Engine Name Role Phone Manuel Merrill MD Primary Care Provider [phone] Manuel Merrill MD Unavailable LainareyaNurys MD Unavailable Earnest Camarillo MD Unavailable [phone] Jany Katz NP Unavailable Julio Cesar Ferguson MD Unavailable [phone] David Gonzáles MD Unavailable [phone] Waqar Barrera MD Unavailable [phone] Raad Chisholm MD Unavailable Jude Cordoba MD Unavailable Encounter Details Date Type Department Care Team (Late st Contact Info) Description 01/29/2025 Orders Only [facility] [address] [place] [address] Provider, MD [place] [address] [place] [id number] Social History Tobacco Use Types Packs/Day [...] Description 03/08/2025 10:30 AM EDT Office Visit [facility] Internal Medicine [address] [place] [address] Manuel Merrill MD [address] [place] [address] [email or web address] 08/09/2025 11:00 AM EST Office Visit [facility] [address] [place] [id number] Salima López MD [address] [place] [address], [address] [place] [id number] documented as of this encounter Procedures Procedure [...] documented as of this encounter Care Teams Dynamometer Tester Engine Relationship Specialty Start Date End Date Manuel Merrill MD [address] [place] [address] [email or web address] PCP - General 06/16/17 Manuel Merrill MD [address] [place], [place] [email or web address] Insurance Assigned Provider 10/22/23 Nurys Nguyen MD [address] [place] [address] Neurology 11/22/19 Earnest Camarillo MD [address] [place] [address] Dr Smith [address] [place] [address] [id number] Neurology 03/28/20 Jany Katz NP [address] [place] [address] Family Medicine 03/28/20 Julio Cesar Ferguson MD [address] [place] [address] 04/04/20 David Gonzáles MD [address] [place] [address] [email or web address] Neurology 08/04/20 Waqar Barrera MD [address] [place] [address] Cardiology 08/08/20 Raad Chisholm MD [address] [place] [address] [place] [address] Cardiology 09/05/20 Jude Cordoba MD [address] [place] [address] Orthopedic Surgery 08/29/23 documented as of this encounter Additional Source Comments The information contained in this document represents components of the legal health record. It is not the complete legal health record.[facility]
--- OUTSIDE RECORDS SUMMARY | 2025-02-18 09:24 | XMS_ITS | Patient Health Record ---
Author Organization [facility] Address [address] [place] [address] Care Team Providers Care Manager Behavior Name Role Phone Manuel Merrill MD Primary Care Provider Kaleb Barrera Unavailable [phone] Allergies Allergen (clinical drug ingredient) Drug/Non Drug [...] Problem Status W/U Status Risk Notes Problem [id number] Irritable bowel syndrome without diarrhea (K58.9) Active confirmed Problem [id number] Abdominal pain, diffuse (R10.9) Active confirmed Plan Of Treatment Future Test Test Name Order Date UPPER GI ENDOSCOPY 04/21/2012 Insurance Providers Payer Name Payer Address Payer Phone Subscriber Number Group Number Insured Name Patient Relationship to Insured Coverage Start Date Coverage End Date MEDICARE OF [place] [address] [place] [address] [id number] MELVIN SMITH Self - patient is the insured MEDICAID OF [place] [facility] [address] [place] [address] [id number] MELVIN SMITH Self - patient is the insured Medical (General) History Medical History History ICD Code colonoscopy 08-20-2009--only a hyperplasti c polyp gastric ulcer/gastritis on E GD with Dr. Shaw in 1995, with H.pylori-s/p Rx with antibiotics irritable bowel syndrome fibromyalgia mitral valve prolapse COPD Denies [place],DM,CVA,renal disease Kidney stone, s/p ESWL Pancreatitis, ? due to gallstones Interstitial cystitis EGD in 05/2012 neg except fo r a HH--biopsies were negative for eosinophilic esophagitis Sees Dr. Kasper from ENT for the swallow ing issues as well--had a neg w/u Describes a normal U/S of e abdomen at [facility]; had a normal UGI in 03/2013 and normal CBC and LFT's Surgical History Surgery Date(Month/Year) removal of fibroids ovarian cysts bladder suspension [facility] Benign breast biopsy
== END 2025-02-18 09:40 | disposition home or self-care (01) ==
LOC: HO.ACS 08:59
PROVIDERS: PCP Internal Medicine; Visit Provider Internal Medicine Medical Oncology
DX: Z79.01 Long term (current) use of anticoagulants (principal)

== ENCOUNTER → 2025-02-18 08:59 | Outpatient (BNVA) | payer MEDICARE, OTHER, SELFPAY | PROVIDERS: PCP Internal Medicine; Visit Provider Internal Medicine Medical Oncology | DX: Z51.81 Encounter for therapeutic drug level monitoring (principal); Z79.01 Long term (current) use of anticoagulants | CPT/HCPCS: 85610; 99212 ==

== ENCOUNTER → 2025-02-23 23:59 | Outpatient (BNV) | payer MEDICARE, MEDICAID, SELFPAY ==
--- NOTE | 2025-02-28 12:48 | MHC.OFFVIS ---
Intake Visit Reasons: Remote device check- [employer] Allergies vancomycin (VANCOMYCIN) Allergy (Intermediate, Verified 02/18/25 09:08) ITCHING/RASH metoclopramide (From Reglan) Adverse Reaction (Intermediate, Verified 02/18/25 09:08) Nausea and Vomiting PFSH Medical History Coronary artery calcification seen on CAT scan History of colon polyps (~2009) Type II diabetes mellitus, well controlled Personal history of nicotine dependence Factor 5 Leiden mutation, heterozygous Obstructive sleep apnea on CPAP (~2008) Osteopenia (~2018) Pacemaker (~2021) History of CVA (cerebrovascular accident) (~2019) Hyperlipidemia PFO (patent foramen ovale) (~2019) HTN (hypertension) COPD (chronic obstructive pulmonary disease) Current use of anticoagulant therapy (~2019) Surgical History Stented coronary artery S/P cardiac cath Hx of cystoscopy Hx of blepharoplasty History of esophagogastroduodenoscopy (EGD) History of colonoscopy History of unilateral oophorectomy History of cholecystectomy (~2000) History of bladder surgery (~1999) History of pacemaker (~2021) Family History Mother Stroke Multiple sclerosis Diabetes Father CAD (coronary artery disease) Social History Alcohol intake: never Patient Tobacco Use Status: Current everyday Tobacco user Tobacco use type: Cigarette Cigarettes Per Day: 3 Years Smoked: 40 +/- e-Cigarette/Vaping Use: Currently Using service: No Current occupational status: retired Office Procedures Cardiac Device Check Cardiac Device Check Details: Remote pacemaker report generated February 23. Pacemaker function is adequate [id number] Cardiac Device Interrogation, pacemaker Procedure code (CPT) selection complete Assessment & Plan Assessment & Plan (1) Cardiac pacemaker in situ: Code(s): Z95.0 - Presence of cardiac pacemaker Category: Medical Plan: See above Coding Level of Care Code Procedure Only Diagnoses Cardiac pacemaker in situ Z95.0 CPT Codes Cardiac Device Check - Cardiac Device 12: [id number] Cardiac Device Interrogation, pacemaker ([id number])
== END ==
PROVIDERS: PCP Internal Medicine; Visit Provider Internal Medicine Cardiovascular Disease
DX: Z45.018 Encounter for adjustment and management of other part of cardiac pacemaker (principal)
CPT/HCPCS: 93294

== ENCOUNTER 2025-03-04 09:01 | Outpatient (AMB) | payer MEDICARE, MEDICAID, SELFPAY ==
--- NOTE | 2025-03-04 09:19 | MHC.OFFVISCO ---
Intake Intake Visit Reasons: Anticoagulation Allergies vancomycin (VANCOMYCIN) Allergy (Intermediate, Verified 03/04/25 09:15) ITCHING/RASH metoclopramide (From Reglan) Adverse Reaction (Intermediate, Verified 03/04/25 09:15) Nausea and Vomiting Medication List - Last Reconciled 03/04/25 by Anny Orta RN albuterol sulfate 90 mcg/actuation 2 puffs inhalation Q4H PRN albuterol sulfate 2.5 mg inhalation Q8H PRN amlodipine 5 mg PO DAILY atorvastatin 40 mg PO DAILY blood sugar diagnostic As directed carisoprodol (Soma) 350 mg PO TID PRN cholecalciferol (vitamin D3) 25 mcg PO DAILY clopidogrel 75 mg PO DAILY cyanocobalamin (vitamin B-12) PO diclofenac sodium 1% topical ezetimibe 10 mg PO DAILY famotidine 20 mg PO BEDTIME ferrous sulfate 325 mg PO DAILY food supplemt, lactose-reduced (Boost) PO hydrocortisone 2.5% appl topical lancets As directed magnesium oxide 400 mg PO DAILY metoprolol succinate ER 50 mg PO DAILY 90 days ondansetron HCl 8 mg PO Q12H PRN oxcarbazepine 300 mg PO BID oxycodone 5 mg PO BEDTIME PRN pramipexole 1 mg PO tirzepatide (Mounjaro) mg subcut umeclidinium-vilanterol 62.5-25 mcg/actuation (Anoro Ellipta) inhalation DAILY warfarin 5 mg See Protocol PO DIRECTED Held on 02/12/25. Instructions: Resume on 02/12/25. Ok to resume warfarin tonight Nursing Note INR: 2.9- in therapeutic range of 2-3 Medications and supplements reviewed- no changes No changes in health, diet, medications, or supplements, Denies any signs and symptoms of bleeding or bruising or clotting. Bleeding, bruising, clotting discussed Nutritional guidance given Dose: 5mg x 6, 7.5mg x 1 F/U INR: 2 weeks Patient verbalizes understanding of instructions given Anti-Coag Initial Assessment Social Hx Patient Tobacco Use Status: Current everyday Tobacco user Tobacco use type: Cigarette alcohol intake: never Coding Level of Care Code Est Patient Level 1 Diagnoses Current use of anticoagulant therapy Z79.01 Results AMB INR Fingerstick AMB INR Fingerstick 2.9 Last Edit by Anny Orta RN on 03/04/25 09:21 interface delay Assessment & Plan Assessment & Plan (1) Current use of anticoagulant therapy: Onset Date: ~2019 Comment: (due to Stroke with PFO and factor 5 leiden) Code(s): Z79.01 - 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
[2025-03-04 09:20] LABS: Prothrombin Time Whole Bld POC 34.6 sec (11.1-13.5); ~PT, ~INR - Anti Coag Clinic 2.9 (0.9-1.1)
--- OUTSIDE RECORDS SUMMARY | 2025-03-04 09:31 | XMS_ITS | Patient Health Record ---
Author Organization [facility] Address [address] [place] [address] Care Team Providers Care Screw Machine Set Up Operator Tool Name Role Phone Manuel Merrill MD Primary Care Provider Kaleb Barrera Unavailable [phone] Allergies Allergen (clinical drug ingredient) Drug/Non Drug [...] Problem Status W/U Status Risk Notes Problem [id number] Irritable bowel syndrome without diarrhea (K58.9) Active confirmed Problem [id number] Abdominal pain, diffuse (R10.9) Active confirmed Plan Of Treatment Future Test Test Name Order Date UPPER GI ENDOSCOPY 04/21/2012 Insurance Providers Payer Name Payer Address Payer Phone Subscriber Number Group Number Insured Name Patient Relationship to Insured Coverage Start Date Coverage End Date MEDICARE [place] [address] [place] [address] [id number] MELVIN SMITH Self - patient is the insured MEDICAID OF [facility] [address] [place] [address] [id number] MELVIN SMITH Self - patient is the insured Medical (General) History Medical History History ICD Code colonoscopy 08-20-2009--only a hyperplasti c polyp gastric ulcer/gastritis on E GD with Dr. Shaw in 1995, with H.pylori-s/p Rx with antibiotics irritable bowel syndrome fibromyalgia mitral valve prolapse COPD Denies [place],DM,CVA,renal disease Kidney stone, s/p ESWL Pancreatitis, ? due to gallstones Interstitial cystitis EGD in 05/2012 neg except fo r a HH--biopsies were negative for eosinophilic esophagitis Sees Dr. Kasper from ENT for the swallow ing issues as well--had a neg w/u Describes a normal U/S of e abdomen at [facility]; had a normal UGI in 03/2013 and normal CBC and LFT's Surgical History Surgery Date(Month/Year) removal of fibroids ovarian cysts bladder suspension CCY Appy Benign breast biopsy
== END 2025-03-04 09:25 | disposition home or self-care (01) ==
LOC: HO.ACS 09:01
PROVIDERS: PCP Internal Medicine; Visit Provider Internal Medicine Medical Oncology
DX: Z79.01 Long term (current) use of anticoagulants (principal)

== ENCOUNTER → 2025-03-04 09:01 | Outpatient (BNVA) | payer MEDICARE, MEDICAID, SELFPAY | PROVIDERS: PCP Internal Medicine; Visit Provider Internal Medicine Medical Oncology | DX: Z51.81 Encounter for therapeutic drug level monitoring (principal); Z79.01 Long term (current) use of anticoagulants | CPT/HCPCS: 85610; 99211 ==

== ENCOUNTER 2025-03-19 08:55 | Outpatient (AMB) | payer MEDICARE, OTHER, SELFPAY ==
[2025-03-19 09:01] LABS: Prothrombin Time Whole Bld POC 30.6 sec (11.1-13.5); ~PT, ~INR - Anti Coag Clinic 2.6 (0.9-1.1)
--- NOTE | 2025-03-19 09:07 | MHC.OFFVISCO ---
Intake Intake Visit Reasons: Anticoagulation Allergies vancomycin (VANCOMYCIN) Allergy (Intermediate, Verified 03/19/25 08:56) ITCHING/RASH metoclopramide (From Reglan) Adverse Reaction (Intermediate, Verified 03/19/25 08:56) Nausea and Vomiting Medication List - Last Reconciled 03/19/25 by Catherine Bales, RN albuterol sulfate 90 mcg/actuation 2 puffs inhalation Q4H PRN albuterol sulfate 2.5 mg inhalation Q8H PRN amlodipine 5 mg PO DAILY atorvastatin 40 mg PO DAILY blood sugar diagnostic As directed carisoprodol (Soma) 350 mg PO TID PRN cholecalciferol (vitamin D3) 25 mcg PO DAILY clopidogrel 75 mg PO DAILY cyanocobalamin (vitamin B-12) PO diclofenac sodium 1% topical ezetimibe 10 mg PO DAILY famotidine 20 mg PO BEDTIME ferrous sulfate 325 mg PO DAILY food supplemt, lactose-reduced (Boost) PO hydrocortisone 2.5% appl topical lancets As directed magnesium oxide 400 mg PO DAILY metoprolol succinate ER 50 mg PO DAILY 90 days ondansetron HCl 8 mg PO Q12H PRN oxcarbazepine 300 mg PO BID oxycodone 5 mg PO BEDTIME PRN pramipexole 1 mg PO tirzepatide (Mounjaro) mg subcut umeclidinium-vilanterol 62.5-25 mcg/actuation (Anoro Ellipta) inhalation DAILY warfarin 5 mg See Protocol PO DIRECTED Held on 02/12/25. Instructions: Resume on 02/12/25. Ok to resume warfarin tonight Nursing Note INR: 2.6 in therapeutic range of 2-3 Medications and supplements reviewed No changes in health, diet, medications, or supplements, Denies any signs and symptoms of bleeding or bruising or clotting. Bleeding, bruising, clotting discussed Nutritional guidance given to continue to balance fruits and vegetables. Pt takes Boost nutritional supplement daily. Dose: 5mg X 6 days and 7.5mg X 1 day (Sun) F/U INR: 2 weeks Patient verbalizes understanding of instructions given Anti-Coag Initial Assessment Social Hx Patient Tobacco Use Status: Current everyday Tobacco user Tobacco use type: Cigarette alcohol intake: never Coding Level of Care Code Est Patient Level 1 Diagnoses Current use of anticoagulant therapy Z79.01 Assessment & Plan Assessment & Plan (1) Current use of anticoagulant therapy: Onset Date: ~2019 Comment: (due to Stroke with PFO and factor 5 leiden) Code(s): Z79.01 - MCC (current) use of anticoagulants Category: Medical
--- OUTSIDE RECORDS SUMMARY | 2025-03-19 09:42 | XMS_ITS | Patient Health Record ---
Author Organization [facility] Address [address] [place] [address] Care Team Providers Care Windmill Mechanic Name Role Phone Manuel Merrill MD Primary Care Provider Kaleb Barrera Unavailable [phone] Allergies Allergen (clinical drug ingredient) Drug/Non Drug [...] Problem Status W/U Status Risk Notes Problem [id number] Irritable bowel syndrome without diarrhea (K58.9) Active confirmed Problem [id number] Abdominal pain, diffuse (R10.9) Active confirmed Plan Of Treatment Future Test Test Name Order Date UPPER GI ENDOSCOPY 04/21/2012 Insurance Providers Payer Name Payer Address Payer Phone Subscriber Number Group Number Insured Name Patient Relationship to Insured Coverage Start Date Coverage End Date MEDICARE OF [place] [address] [place] [address] [id number] MELVIN SMITH Self - patient is the insured MEDICAID OF [facility] [address] [place] [address] [id number] MELVIN SMITH Self - patient is the insured Medical (General) History Medical History History ICD Code colonoscopy 08-20-2009--only a hyperplasti c polyp gastric ulcer/gastritis on E GD with Dr. Shaw in 1995, with H.pylori-s/p Rx with antibiotics irritable bowel syndrome fibromyalgia mitral valve prolapse COPD Denies [place],DM,CVA,renal disease Kidney stone, s/p ESWL Pancreatitis, ? due to gallstones Interstitial cystitis EGD in 05/2012 neg except fo r a HH--biopsies were negative for eosinophilic esophagitis Sees Dr. Kasper from ENT for the swallow ing issues as well--had a neg w/u Describes a normal U/S of e abdomen at [facility]; had a normal UGI in 03/2013 and normal CBC and LFT's Surgical History Surgery Date(Month/Year) removal of fibroids ovarian cysts bladder suspension CCY Appy Benign breast biopsy
== END 2025-03-19 09:10 | disposition home or self-care (01) ==
PROVIDERS: PCP Internal Medicine; Visit Provider Internal Medicine Medical Oncology
DX: Z79.01 Long term (current) use of anticoagulants (principal)

== ENCOUNTER → 2025-03-19 08:55 | Outpatient (BNVA) | payer MEDICARE, OTHER, SELFPAY | PROVIDERS: PCP Internal Medicine; Visit Provider Internal Medicine Medical Oncology | DX: Z51.81 Encounter for therapeutic drug level monitoring (principal); Z79.01 Long term (current) use of anticoagulants | CPT/HCPCS: 85610; 99211 ==

== ENCOUNTER 2025-04-01 08:51 | Outpatient (AMB) | payer MEDICARE, OTHER, SELFPAY ==
[2025-04-01 08:57] LABS: Prothrombin Time Whole Bld POC 31.1 sec (11.1-13.5); ~PT, ~INR - Anti Coag Clinic 2.6 (0.9-1.1)
--- NOTE | 2025-04-01 09:08 | MHC.OFFVISCO ---
Intake Intake Visit Reasons: Anticoagulation Allergies vancomycin (VANCOMYCIN) Allergy (Intermediate, Verified 04/01/25 08:52) ITCHING/RASH metoclopramide (From Reglan) Adverse Reaction (Intermediate, Verified 04/01/25 08:52) Nausea and Vomiting Medication List - Last Reconciled 04/01/25 by Catherine Bales, RN albuterol sulfate 90 mcg/actuation 2 puffs inhalation Q4H PRN albuterol sulfate 2.5 mg inhalation Q8H PRN amlodipine 5 mg PO DAILY atorvastatin 40 mg PO DAILY blood sugar diagnostic As directed carisoprodol (Soma) 350 mg PO TID PRN cholecalciferol (vitamin D3) 25 mcg PO DAILY clopidogrel 75 mg PO DAILY cyanocobalamin (vitamin B-12) PO diclofenac sodium 1% topical ezetimibe 10 mg PO DAILY famotidine 20 mg PO BEDTIME ferrous sulfate 325 mg PO DAILY food supplemt, lactose-reduced (Boost) PO hydrocortisone 2.5% appl topical lancets As directed magnesium oxide 400 mg PO DAILY metoprolol succinate ER 50 mg PO DAILY 90 days ondansetron HCl 8 mg PO Q12H PRN oxcarbazepine 300 mg PO BID oxycodone 5 mg PO BEDTIME PRN pramipexole 1 mg PO tirzepatide (Mounjaro) mg subcut umeclidinium-vilanterol 62.5-25 mcg/actuation (Anoro Ellipta) inhalation DAILY warfarin 5 mg See Protocol PO DIRECTED Held on 02/12/25. Instructions: Resume on 02/12/25. Ok to resume warfarin tonight Nursing Note INR: 2.6 in therapeutic range of 2-3 Medications and supplements reviewed No changes in health, diet, medications, or supplements, Denies any signs and symptoms of bleeding or bruising or clotting. 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
--- OUTSIDE RECORDS SUMMARY | 2025-04-01 10:08 | XMS_ITS | Encounter Summary ---
Author Organization [facility] Address [address] [place] [address] Phone Care Team Providers Care Deputy Sheriff Bailiff Name Role Phone Manuel Merrill MD Primary Care Provider Manuel Merrill MD Unavailable LainareyNurys gamez MD Unavailable Earnest Camarillo MD Unavailable Jany Katz NP Unavailable Julio Cesar Ferguson MD Unavailable [phone] David Gonzáles MD Unavailable [phone] Waqar Barrera MD Unavailable Raad Chisholm MD Unavailable Jude Cordoba MD Unavailable Reason for Visit * Reason Comments Medication Refill Encounter Details Date Type Department Care Team (Late st Contact Info) Description 03/29/2025 Refill [facility] [place] [facility] [address], [place] [phone] Manuel Merrill MD [address] [place], [place] [phone] Medication Refill Social History Tobacco Use Types Packs/Day Years Used Date Smoking Tobacco: Every Day Cigarettes 0.3 58.7 Started: 1968 Passive Smoke Exposure: Current Smokeless Tobacco: Never Comments:2 cigarettes QD-10/16 12/09 Alcohol Use Standard Drinks/Week Comments Not Currently [...] you moved in the past 12 tue ths? One time 12/09/2020 06 Are you worried [...] on file documented as of this encounter Progress Notes * Apoorva Ortiz CMA - 03/29/2025 9:03 AM EDT Rx Care Gap Status - Instructions for Clinical Staff (prescriber discretion applies): > Mismatch review guide > N/a - No action needed Visit Info Last visit: 03/08/2025 Manuel Merrill MD - Internal Medicine [facility] > Requested f/u: Not specified Upcoming visit: 06/03/2025 Manuel Merrill MD - Internal Medicine [facility] ACTIONS TAKEN BY Apoorva Ortiz CMA - Criteria met. Vitamins, Minerals, Supplements, OTCs Rx Protocol - magnesium oxide Criteria met; renew for up to 12 months. Visit in the past 24 months: Yes documented in this encounter Plan of Treatment Upcoming Encounters Date Type Department Care Team (Late st Contact Info) Description 06/03/2025 11:30 AM EST Office Visit [facility] Internal Medicine [address] [place] [address] Manuel Merrill MD [address] [place] [address] 08/09/2025 11:00 AM EST Office Visit [facility] [address] [place] [address] Salima López MD [address] [facility], 1st [place] [address] 11/25/2025 10:00 AM EDT Office Visit [facility] Internal Medicine [address] [place] [address] Manuel Merrill MD [address] [place] [address] documented as of this encounter Visit Diagnoses Not on filedocumented in this encounter Additional Health Concerns Assessment Noted Time PHQ-9 Depression Total Score: 16 021 9:05 AM EST PHQ-2 Depression Total Score: 0 03/08/20 25 10:26 AM EDT documented as of this encounter Care Teams Deputy Sheriff Bailiff Relationship Specialty Start Date End Date Manuel Merrill MD [address] [place] [address] PCP - General 06/16/17 Manuel Merrill MD [address] [place] [address] Insurance Assigned Provider 10/22/23 Nurys Nguyen MD [address] [place] [address] Neurology 11/22/19 Earnest Camarillo MD [address] [place] [address] [place] [address] Neurology 03/28/20 Jany Katz NP [address] [place] [address] Family Medicine 03/28/20 [place] [address] [place] [address] [place] [address] 04/04/20 David Gonzáles MD [address] [place] [address] [email or web address] Neurology 08/04/20 Waqar Barrera MD [address] [place] [address] Cardiology 08/08/20 Raad Chisholm MD [address] [place] [address] Cardiology 09/05/20 Jude Cordoba MD [facility] Phyllis Prade[address] [address] Orthopedic Surgery 08/29/23 documented as of this encounter Additional Source Comments The information contained in this document represents components of the legal health record. It is not the complete legal health record.[facility]
--- OUTSIDE RECORDS SUMMARY | 2025-04-01 10:09 | XMS_ITS | Encounter Summary ---
Author Organization [facility] Address [address] [place] [address] Phone Care Team Providers Care Concrete Handler Name Role Phone Manuel Merrill MD Primary Care Provider Manuel Merrill MD Unavailable LainareyaNurys MD Unavailable [phone] Earnest Camarillo MD Unavailable Jany Katz NP Unavailable Julio Cesar Ferguson MD Unavailable [phone] David Gonzáles MD Unavailable [phone] Waqar Barrera MD Unavailable Raad Chisholm MD Unavailable Jude Cordoba MD Unavailable Encounter Details Date Type Department Care Team (Late st Contact Info) Description 03/08/2025 Orders Only [facility] [place] [facility] [address] [place] [address] Provider, MD Milan [facility] [place] [address] Social History Tobacco Use Types Packs/Day Years Used Date Smoking Tobacco: Every Day Cigarettes 0.3 58.7 Started: 1969 Passive Smoke Exposure: Current Smokeless Tobacco: Never Comments:2 cigarettes QD-4/1 5/25 Alcohol Use Standard Drinks/Week Comments Not Currently [...] Description 06/03/2025 11:30 AM EST Office Visit [facility] Internal Medicine [address] [place] [address] Manuel Merrill MD [address] [place] [address] 08/09/2025 11:00 AM EST Office Visit [facility] [address] [place] [address] Salima López MD [address] [place] [address], [address] [place] [address] 11/25/2025 10:00 AM EDT Office Visit [facility] [address] [place] [address] Manuel Merrill MD [address] [place] [address] documented as of this encounter Procedures Procedure Name Priority Date/Time Associated Diagnosis Comments OUTSIDE PATHOLOGY Routine 03/08/2025 12: 27 PM EDT HM COLONOSCOPY FOR RESULT ENTRY ONLY Routine 03/08/2025 12:25 PM EDT OUTSIDE PATHOLOGY Routine 11/20/2024 10: 59 AM EDT documented in this encounter Results * Outside Pathology (03/08/2025 12:27 PM EDT) Historical Provider PATHOLOGY ORDERABLES Selin l Result * HM COLONOSCOPY FOR RESULT ENTRY ONLY (03/08/2025 12:25 PM EDT) Historical Provider HEALTH MAINTENANCE Final Result * Outside Pathology (11/20/2024 10:59 AM EDT) Historical Provider PATHOLOGY ORDERABLES Selin l Result documented in this encounter Visit Diagnoses Not on filedocumented in this encounter Additional Health Concerns Assessment Noted Time PHQ-9 Depression Total Score: 16 021 9:05 AM EST PHQ-2 Depression Total Score: 0 03/08/20 25 10:26 AM EDT documented as of this encounter Care Teams Concrete Handler Relationship Specialty Start Date End Date Manuel Merrill MD [address] [place] [address] [email or web address] PCP - General 06/16/17 Manuel Merrill MD [address] [place] [address] Insurance Assigned Provider 10/22/23 Nurys Nguyen MD [address] [place] [address] Neurology 11/22/19 Earnest Camarillo MD [address] [place] [address] [place] [id number] Neurology 03/28/20 Jany Katz NP [address] [place] [address] Family Medicine 03/28/20 Julio Cesar Ferguson MD [address] [place] [address] 04/04/20 David Gonzáles MD [address] [place] [address] [email or web address] Neurology 08/04/20 Waqar Barrera MD [address] [place] [address] Cardiology 08/08/20 Raad Chisholm MD [address] [place] [address] [address] [place] [address] Cardiology 09/05/20 Jude Cordoba MD [address] [place] [address] Orthopedic Surgery 08/29/23 documented as of this encounter Additional Source Comments The information contained in this document represents components of the legal health record. It is not the complete legal health record.[facility]
--- OUTSIDE RECORDS SUMMARY | 2025-04-01 10:09 | XMS_ITS | Encounter Summary ---
Author Organization [facility] Address [address] [facility] [address] [facility] [address] [place] [address] Phone Care Team Providers Care Oil Change Technician Name Role Phone Manuel Merrill MD Unavailable Nichole Fenton MD Unavailable Court Mendenhall MD Unavailable Salima López MD Unavailable [phone] Amanda Fields PAYROLL ADMINISTRATIVE ASSISTANT Unavailable [phone] Venita Pascal MD Unavailable Manuel Merrill MD Primary Care Provider Manuel Merrill MD Unavailable Nurys Nguyen MD Unavailable Earnest Camarillo MD Unavailable Jany Katz NP Unavailable Julio Cesar Ferguson MD Unavailable [phone] David Gonzáles MD Unavailable Waqar Barrera MD Unavailable Raad Chisholm MD Unavailable Dina Blanco RN Unavailable Jude Cordoba MD Unavailable Encounter Details Date Type Department Care Team (Late st Contact Info) Description 08/30/2019 Ancillary Orders [facility],Outside Imaging [address] [place] [address] System, Provider Not In, [place] [address] Social History Tobacco Use Types Packs/Day Years Used Date Smoking Tobacco: Every Day Cigarettes 1 40 Smokeless Tobacco: Never Comments:quit 03/22/18 Alcohol Use Standard Drinks/Week Comments Yes 0 (1 standard drink = 0.6 oz pur e alcohol) socially, rare Comments No Sex and Gender Information Value [...] Description 06/03/2025 11:30 AM EST Office Visit [facility] Internal Medicine [address] [place] [address] Manuel Merrill MD [address] [place] [address] 08/09/2025 11:00 AM EST Office Visit [facility] [address] [place] [address] Salima López MD [address] [facility] [address], [address] [place] [address] 11/25/2025 10:00 AM EDT Office Visit [facility] Medicine [address] [place] [address] Manuel Merrill MD [address] [place] [address] [email or web address] documented as of this encounter Results * Mammogram Outside (No Interpretation) (08/20/2019 12:00 AM EST) Narrative SYSTEMGENERATED, DOCUMENTATION - 08/30/2019 9:37 AM EST This study is for PACS storage only and not for interpretation. us Provider Not In System PhD IMG OUTSIDE IMAGING W /OUT INTERPRETATION Final Result documented in this encounter Visit Diagnoses Not on filedocumented in this encounter Additional Health Concerns Infection Onset Date Last Indicated Resolved Time CoV-Risk 01/04/2020 01/04/2020 01/18/2020 1:23 AM EDT CoV-Presumed Comment:COVID-19 Added 10/22/2021 10/22/2021 11/03/2021 8:42 A M EDT COVID-19 10/22/2021 10/22/2021 11/12/2021 1:23 AM EDT Assessment Noted Time PHQ-2 Depression Total Score: 0 10/10/19 19 11:16 AM EDT documented as of this encounter Care Teams Oil Change Technician Relationship Specialty Start Date End Date Manuel Merrill MD [address] [place] [address] [email or web address] PCP - General 06/16/17 Manuel Merrill MD [address] [place] [address] [email or web address] Historical LMR Provider 05/08/17 11/21/19 Nichole Fenton MD [address] [place] [address] [email or web address] Historical LMR Provider 05/08/17 11/21/19 Court Mendenhall MD [address] [place] [address] Historical LMR Provider 05/08/17 11/21/19 Salima López MD [address] [facility], 1st [place] [address] Historical LMR Provider 05/08/17 11/21/19 Amanda Fields NP [address] [place] [address] [address] [place] [address] Historical LMR Provider 05/08/17 11/21/19 Venita Pascal MD [address] [address] [email or web address] Historical LMR Provider 05/08/17 11/21/19 Manuel Merrill MD [address] [place] [address] [email or web address] Insurance Assigned Provider 10/22/23 Nurys Nguyen MD [address] [place] [address] Neurology 11/22/19 Earnest Camarillo MD [address] [place] [address] [place] [address] Neurology 03/28/20 Jany Katz NP [address] [place] [address] Family Medicine 03/28/20 Julio Cesar Ferguson MD [address] [place] [address] [place] [address] 04/04/20 David Gonzáles MD [address] [place] [address] [email or web address] Neurology 08/04/20 Waqar Barrera MD [address] [place] [address] Cardiology 08/08/20 Raad Chisholm MD [address] [place] [address] Cardiology 09/05/20 Dina Blanco, RN [address] [place] [address] [email or web address] Stonemason 08/07/21 08/23/21 Jude Cordoba MD [address] [place], [place] [address]odessa Pr[address] [address] Orthopedic Surgery 08/29/23 documented as of this encounter Additional Source Comments The information contained in this document represents components of the legal health record. It is not the complete legal health record.[facility]
--- OUTSIDE RECORDS SUMMARY | 2025-04-01 10:09 | XMS_ITS | Clinical Summary ---
Author Organization [facility] Address [address] [place] [address] Phone Care Team Providers Care Side Gluer Name Role Phone Manuel Merrill MD Primary Care Provider [phone] Manuel Merrill MD Unavailable LainareyNurys gamez MD Unavailable Earnest Camarillo MD Unavailable [phone] Jany Katz NP Unavailable Julio Cesar Ferguson MD Unavailable [phone] David Gonzáles MD Unavailable Waqar Barrera MD Unavailable [phone] Raad Chisholm MD Unavailable Jude Cordoba MD Unavailable Allergies Active Allergy Reactions Criticality Noted Date Comments Varenicline Other (See Comments) 04/19/2019 Disturbing dreams, violent thoughts,depressio n Duloxetine Headaches 06/23/2017 Gabapentin Other (See Comments) 06/23/2017 Fatigue, bladder pressure Hydrocodone-Acetaminophen Nausea and/or Vomiting 08/14/2021 Metformin Diarrhea Medium 04/16/2024 Metoclopramide Nausea And Vomiting High 06/03/2022 Paroxetine Hcl Unknown 06/23/2017 Metoclopramide Hcl Unknown 06/23/2017 Vancomycin Itching,Rash High 06/23/2017 Medications cholecalciferol (VITAMIN D3) 2,000 unit tablet Take 1,000 Units by mouth daily. Active OXcarbazepine (TRILEPTAL) 150 MG tablet Take 300 mg by mouth 2 (two) times a day. Active ezetimibe (ZETIA) 10 mg tablet Take 10 mg by mouth daily. Active metoprolol succinate (TOPROL-XL) 50 MG 24 hr tablet Take 50 mg by mouth daily. Active FREESTYLE LITE Strp stripsIndication s:test one daily 1 each by See Administration Instructions route daily. dx: E11.9 Type 2 DM. Testing blood sugars once a day. Indications: test one daily 100 strip 5 Active amLODIPine (NORVASC) 5 MG tablet Take 5 mg by mouth daily. Active clopidogrel (PLAVIX) 75 mg tablet Take 75 mg by mouth daily. Active famotidine (PEPCID) 20 MG tablet Take 20 mg by mouth nightly at bedtime. Active cyanocobalamin, vitamin B-12, 1000 MCG tablet Take 1,000 mcg by mouth daily. Active ondansetron (ZOFRAN) 8 MG tabletIndication s:Nausea Take 1 tablet (8 mg total) by mouth every 12 (twelve) hours as needed for nausea. 60 tablet 1 Active pramipexole (MIRAPEX) 1 MG tabletIndication s:Restless legs syndrome TAKE 1/2 TAB BY MOUTH NIGHTLY AT BEDTIME NEEDED FOR RESTLESS LEGS SYNDROME, AN EXTREME DISCOMFORT IN THE CALF MUSCLES WHEN SITTING OR LYING DOWN 45 tablet 7 Active albuterol (VENTOLIN HFA) 90 mcg/actuation inhaler Inhale 2 puffs into the lungs as needed. Active food supplemt, lactose-reduced (BOOST) 0.04 gram- 1 kcal/mL Liqd 1 Bottle 2 (two) times a week. Up to three times weekly Active atorvastatin (LIPITOR) 40 MG tabletIndication s:Other hyperlipidemia TAKE 1 TABLET BY MOUTH EVERY DAY 90 tablet 3 Active ID-hydrocortison e ([id number]) 2.5% ointment as needed (to ears). 024 Active ferrous sulfate 325 mg (65 mg [place] iron) tablet Take 325 mg by mouth daily with breakfast. 024 Active lancets 33 gauge MiscIndications: Type 2 diabetes mellitus with diabetic mononeuropathy, without long-term current use of insulin Inject 1 each into the skin daily. E11.40 100 each 3 025 Active warfarin (COUMADIN) 5 MG tabletIndication s:Anticoagulated TAKE 1-2 TABLET(S) DAILY DIRECTED BY [facility]ADIN [facility]INIC. 180 tablet 1 025 Active ANORO ELLIPTA 62.5-25 mcg/actuation diskus inhaler Inhale 1 puff into the lungs daily. 025 Active oxyCODONE 5 MG immediate release tabletIndication s:Chronic bilateral thoracic back pain,Cervicalgia Take 1 tablet (5 mg total) by mouth daily as needed for pain (specific location in comments) (back pain). Partial fill ok 28 tablet 025 Active MOUNJARO 10 mg/0.5 mL PnIj subcutaneous penIndications:T ype 2 diabetes mellitus with diabetic mononeuropathy, without long-term current use of insulin INJECT 0.5 ML (10 MG TOTAL) UNDER THE SKIN ONCE A WEEK. E11.40 2 mL 5 025 Active magnesium oxide 400 mg magnesium Tab TAKE 1 TABLET BY MOUTH EVERY DAY 90 tablet 3 025 Active magnesium oxide 400 mg magnesium Tab Take 400 mg by mouth daily. 90 tablet 3 024 2024 Discontinued sucralfate (CARAFATE) 1 gram tablet Take 1 g by mouth 2 (two) times a day. 024 2024 Discontinued(N o longer taking) MOUNJARO 10 mg/0.5 mL PnIj subcutaneous penIndications:T ype 2 diabetes mellitus with diabetic mononeuropathy, without long-term current use of insulin Inject 0.5 mL (10 mg total) under the skin once a week. E11.40 6 mL 1 025 2024 Discontinued enoxaparin (LOVENOX) 60 mg/0.6 mL Syrg subcutaneous syringeIndicatio ns:Cerebrovascul ar accident (CVA), unspecified mechanism,Factor V Leiden Inject 0.6 ml (60 mg total) every 12 hours as directed. 9.6 mL 1 025 2024 Discontinued(N o longer taking) azithromycin (ZITHROMAX Z-RAMIRO) 250 MG tabletIndication s:Acute exacerbation of COPD with asthma Take 2 tablets on day 1, and take 1 tablet on days 2 through 5 for a total of 5 days. 6 tablet 025 2024 Active Problems Problem Noted Date Diagnosed Date Type 2 diabetes mellitus wit h diabetic mononeuropathy, without long-term current use of insulin 08/28/2024 Assessment & Plan (01/28/2025 5:05 PM EDT): Continues on Mounjaro monotherapy and tolerating this better than Trulicity in the past, has had lower appetite and lower intake, this has made managing sweets/problem foods easier; Diane has had weight loss fairly consistently since June, total loss of nearly 20lb, much of this has been since changing to Mounjaro We discussed continuing current dose of Mounjaro as Diane is tolerating this well and has had a good response to this Continues to self monitor blood sugars less consistently than in the past, A1c is improved We discussed continuing to try to optimize protein intake and moderate sugar intake Encouraged to continue her efforts on stopping smoking given h/o CVA and DM, this has been unexpectedly easier as she has lost her craving for cigarettes since on Mounjaro Encouraged to contact me with any questions or concerns, we will follow up in 6 months, Diane is encouraged to reach out via patient portal with updates, questions Assessment & Plan (08/29/2024 4:39 PM EST): Remains of Metformin and doing well off this, now on Mounjaro monotherapy and tolerating this better than Trulicity in the past, continues with increased upper GI gas/bloating but this is mostly in the morning on waking and may be largely due to CPAP, pressure was reduced by sleep med today; has benefited from reduced appetite though still has a habit around some sweets/problem foods; Diane had weight gain after 3 months on Trulicity therapy however since change to Mounjaro she has had weight loss of several pounds We discussed optimized dosage of Mounjaro as Diane is tolerating current dose well Continues to self monitor blood sugars more regularly than in the past, Diane provided data for review today, we discussed this and Diane is reassured that the data is improved compared to the past Encouraged to continue her efforts on stopping smoking given h/o CVA and DM, this has been unexpectedly easier as she has lost her craving for cigarettes since on Mounjaro and finds that she is smoking less Encouraged to contact me with any questions or concerns, we will follow up in 4- 5 months, Diane is encouraged to reach out via patient portal with updates, questions Acute bilateral low back pain without sciatica 0 04/06/2024 Assessment & Plan (04/06/2024 11:54 AM EDT): Patient with a history of prior back pain who had undergone an MRI of her thoracic spine which noted some arthritis. She did mention that she had an MRI of her lumbar spine she believes at [facility] we are trying to get those records for review. Today she comes in after she had pulled her back lifting a trash bag out of the can. She has noted to have muscle spasms in the paraspinous musculature of the lumbar spine. Concern for lumbar strain versus fracture versus underlying radicular radiculopathy. Patient is noted to have some weakness of her lower extremities on physical examination however patient states that this is not new for her. -Will obtain lumbar x-ray -Will refer for physical therapy patient states that she did receive physical therapy at [facility] therefore referral has been sent -Continue oxycodone 5 mg p.o. every 8 hours as needed for severe pain -Continue Tylenol as needed -Add Soma 350 mg p.o. 3 times daily as needed muscle spasm -Continue heat and ice alternating -Follow-up in the office if symptoms do not continue to improve or worsen. -[employer] verified Pacemaker 03/21/2024 Overview (03/21/2024): Remotely monitored Dr. Chisholm Status post CVA 10/29/2022 Assessment & Plan (11/23/2022 10:53 AM EDT): She understands ongoing increased risk with continued cigarette smoking and need for optimizing her glucose control, quitting completely cigarette smoking and improving regular exercise routine. Continue low concentrated sugars, low cholesterol and saturated fats diet Anticoagulated 10/29/2022 Assessment & Plan (11/23/2022 10:50 AM EDT): Avoid falls, injuries and cuts. Monitor for excessive bruising and bleeding. NAVIN positive 10/29/2022 Assessment & Plan (11/23/2022 10:39 AM EDT): I have reviewed with Diane that low positive NAVIN in itself does not make any diagnosis though may be a risk factor for developing one of the diseases associated with positive NAVIN at some point in the future. Healthful lifestyle without cigarette smoking, well-balanced nutritionally diet, proper hydration, gentle, regular exercise routine, avoidance of falls, injuries sunburns and sick contacts are the main stem strategies to avoid progression. Trochanteric bursitis of both hips 10/29/2022 Assessment & Plan (11/23/2022 10:49 AM EDT): Use warm packs or warm shower prior to gentle, regular exercising-examples of exercises with pictures and detailed instructions printed for home use today. Topical cream versus gel versus patch such as Arnica, Biofreeze, Voltaren versus Salonpas or IcyHot patch may provide additional benefit. If symptoms do not improve despite above measures may need to consider formal PT and/or local steroid injection. Osteoarthritis 04/26/2019 COPD (chronic obstructive pu lmonary disease) with chronic bronchitis 04/04/2018 Hypertension 01/02/2018 Assessment & Plan (01/28/2025 3:25 PM EDT): Continues on beta maria isabel and calcium channel maria isabel Blood pressure measurements at recent visits have been reassuring and is in good control today BP goal <130/80 Assessment & Plan (08/29/2024 4:48 PM EST): Continues on beta maria isabel and calcium channel maria isabel Blood pressure measurements at recent visits have been reassuring but this is elevated today BP goal <130/80 Assessment & Plan (07/03/2024 11:51 AM EST): Continues on beta maria isabel and calcium channel maria isabel Blood pressure measurements at recent visits have been reassuring and this is in good control today BP goal <130/80 Assessment & Plan (03/21/2024 2:56 PM EDT): Continues on beta maria isabel and calcium channel maria isabel Has had some challenges with blood pressure management, blood pressure measurements at recent visits have been reassuring and this is in good control today BP goal <130/80 Assessment & Plan (09/14/2022 3:43 PM EST): Continues on beta maria isabel Has had some challenges with hypotension/fatigue and antihypertensive regimen has been adjusted for this, blood pressure measurements at recent visits have been reassuring BP goal <130/80 Assessment & Plan (02/09/2022 10:38 AM EDT): Continues on ACEi therapy at very low dose Has had some challenges with hypotension/fatigue and antihypertensive regimen has been adjusted for this, blood pressure measurements at recent visits have been reassuring BP goal <130/80, in low normal range today Assessment & Plan (10/01/2021 10:41 AM EDT): Continues on ACEi therapy at very low dose Has had some challenges with hypotension/fatigue and antihypertensive regimen has been adjusted for this BP goal <130/80, in low normal range today Assessment & Plan (04/02/2021 3:01 PM EDT): Continues on ACEi therapy BP goal <130/80, in good control today Assessment & Plan (09/22/2020 6:03 PM EST): Continues on ACEi therapy BP goal <130/80, in good control today Assessment & Plan (04/28/2020 12:51 PM EDT): Continues on ACEi therapy BP goal <130/80, in good control today Reports h/o low blood pressure with symptoms and has discussed this with Dr. Garfield Assessment & Plan (10/19/2019 11:25 AM EDT): Continues on ACEi therapy BP goal <130/80 Assessment & Plan (04/19/2019 4:49 PM EDT): Continues with excellent blood pressure control on current ACEi therapy Assessment & Plan (09/29/2018 2:56 PM EDT): Excellent blood pressure control on current ACEi dosage Family history of iron deficiency 09/01/2017 Abdominal bloating 2017 Overview (04/11/2024): Saw [facility] 03/07/24 Dr. Violette Ortega dx fatigue, osteopenia, colon polyps GERD w esophagitis , LE edema- plan was switched PPI to famotidine given osteopenia, doing labs. Ref her to rheum for eval of possible PMR. And osteopenia management with rheum as well , for LE edema advsied stockings and f/u with cardiology as scheduled next CRC due 2024 f/u 4m Assessment & Plan (2017 1:56 PM EST): Pelvic ultrasound ordered given symptoms and family history. Will call patient with imaging results. Hypothyroidism 06/23/2017 Assessment & Plan (01/28/2025 4:55 PM EDT): Most recent TSH reviewed this is from early 2023, no recent outside labs appear to have included this, TSH was in desired range Grossly clinically euthyroid Not currently on thyroid replacement therapy Assessment & Plan (08/29/2024 4:45 PM EST): Most recent TSH reviewed this is from one year ago, no recent outside labs appear to have included this, TSH was in desired range Not currently on thyroid replacement therapy Assessment & Plan (07/03/2024 11:57 AM EST): Most recent TSH reviewed, this is in desired range Not currently on thyroid replacement therapy Assessment & Plan (03/21/2024 2:56 PM EDT): Most recent TSH reviewed, this is in desired range Not currently on thyroid replacement therapy Assessment & Plan (09/14/2022 3:45 PM EST): Most recent TSH reviewed, this is in desired range Not currently on thyroid replacement therapy Assessment & Plan (10/01/2021 10:41 AM EDT): Most recent TSH reviewed, this is in desired range Not currently on thyroid replacement therapy Assessment & Plan (04/02/2021 3:04 PM EDT): Most recent TSH reviewed, this is in desired range Not currently on thyroid replacement therapy Assessment & Plan (09/22/2020 5:56 PM EST): Most recent TSH in desired range Assessment & Plan (10/24/2017 1:18 PM EDT): Recent TFTs evaluated, TSH at high end of normal; clinically euthyroid Fibromyalgia 06/23/2017 Assessment & Plan (11/23/2022 10:44 AM EDT): We discussed the diagnosis of fibromyalgia, its natural history, and treatment. Specifically, we discussed that treatment requires many interventions and recognition that we are often unable to get patients completely pain free. Management of fibromyalgia requires patient engagement to address any underlying depression, anxiety, or sleep disorder. Further, patients are encouraged to engage in regular physical activity. Some studies have suggested that George Chi is effective. Other physical activity may including water-based aerobics, walking, biking, gentle yoga, swimming, Pilates etc. In terms of pharmacotherapy, there are many options, including tricyclic antidepressants, duloxetine, gabapentin or pregabalin, and cyclobenzaprine as well as other similar medications to those listed. In this case, the patient might try to focus on nonpharmacologic options due to multiple prescription medications already taken and sensitivity to medications. She would benefit from learning mindfulness approach as described in the book written by Dr Matt Cabrera Full catastrophe living Other hyperlipidemia 06/23/2017 Assessment & Plan (01/28/2025 4:53 PM EDT): Continues on high intensity statin therapy Most recent LDL was 61 which is improved but remains above optimal goal of <55 given CAD and CVA history Diet has improved as she is being more mindful about intake due to lower appetite from GLP/GIP, trying to optimize protein Assessment & Plan (08/29/2024 4:41 PM EST): Continues on high intensity statin therapy Most recent LDL was 61 which is improved but remains above optimal goal of <55 given CAD and CVA history Diet has continued to be poor due to increased intake of sweets but she is doing well in trying to mitigate this, has had some appetite impact from Mounjaro Assessment & Plan (07/03/2024 11:52 AM EST): Continues on high intensity statin therapy Most recent LDL was 73, goal is <55 given CAD and CVA history Diet has continued to be poor due to increased intake of sweets Assessment & Plan (03/21/2024 2:57 PM EDT): Continues on high intensity statin therapy Most recent LDL was 73, goal is <55 given CAD and CVA history Diet has been poor recently Assessment & Plan (02/09/2022 10:42 AM EDT): Continues on high intensity statin therapy Most recent LDL was 97, goal is ideally <55 given CVA history Assessment & Plan (10/01/2021 10:42 AM EDT): Continues on high intensity statin therapy Most recent LDL was 97, goal is ideally <55 given CVA history Assessment & Plan (04/02/2021 3:03 PM EDT): Continues on high intensity statin therapy Most recent LDL was 82, goal is ideally <70 given CVA history Assessment & Plan (09/22/2020 5:57 PM EST): Continues on high intensity statin therapy Most recent LDL was 83, goal is ideally <70 given CVA history Assessment & Plan (04/28/2020 12:55 PM EDT): Continues on high intensity statin therapy Most recent LDL was 95, goal is ideally <70 given CVA history Assessment & Plan (10/19/2019 11:25 AM EDT): Now on high intensity statin therapy since CVA LDL goal <70 Assessment & Plan (04/19/2019 4:48 PM EDT): Continues on moderate intensity statin therapy Most recent LDL at goal, <100 Assessment & Plan (09/29/2018 2:55 PM EDT): Continues on moderate intensity statin therapy Recent LDL is desired range Assessment & Plan (12/26/2017 8:11 PM EDT): Recent lipid panel reviewed, LDL <100 on current dose of simva at mod intensity Assessment & Plan (10/24/2017 1:19 PM EDT): Most recent lipid panel reviewed, LDL 90 Continues on moderate intensity simva Tobacco use 06/23/2017 Assessment & Plan (08/29/2024 4:28 PM EST): Continues to smoke, continues to try to reduce which has been easier since on Johnny Remains aware of the importance of smoking cessation given her vascular symptoms as well as respiratory issues and diabetes history among other health benefits Assessment & Plan (03/21/2024 2:51 PM EDT): Continues to smoke, continues to try to reduce Aware of the importance of smoking cessation given her vascular symptoms as well as respiratory issues and diabetes history among other health benefits Assessment & Plan (11/23/2022 10:48 AM EDT): I have spent at least 3 minutes on encouraging her to work on complete smoking cessation by reducing number of cigarettes smoked daily by 1 cigarette and e-cigarettes every week and be ready for dealing with cravings by stocking finger size healthy snacks such as small carrots, cucumbers, celery sticks etc. She is well aware about multiple ill effects of ongoing cigarette smoking habit Including but not limited to increased risk of developing lung cancer, cervical cancer, bladder cancer, stroke, heart attack. She works hard on quitting but admits to hurdles[email or web address] Assessment & Plan (02/09/2022 10:37 AM EDT): Continues to smoke, continues to reduce Aware of the importance of smoking cessation given her vascular symptoms as well as respiratory issues and diabetes history among other health benefits, motivated to quit and will be contacting [address] [place] [address] Assessment & Plan (10/01/2021 10:40 AM EDT): Continues to smoke, more recently less than in the past Aware of the importance of smoking cessation given her vascular symptoms as well as respiratory issues and diabetes history among other health benefits Assessment & Plan (04/28/2020 12:54 PM EDT): Continues to smoke, more recently increase in amount We revisited the importance of smoking cessation given her vascular symptoms as well as respiratory issues and diabetes history among other health benefits Assessment & Plan (04/19/2019 4:46 PM EDT): Continues to smoke up to 1/2ppd Has had intolerance to Chantix, nicotine patches not helpful in the past Currently on buproprion Assessment & Plan (09/29/2018 2:55 PM EDT): We discussed importance of smoking cessation Advised to think about a change from smoking when she is bored or during commercials when watching TV to another activity Sleep apnea 06/23/2017 Assessment & Plan (01/28/2025 3:25 PM EDT): Has not been using CPAP for several months due to side effects from this Follows with sleep medicine Assessment & Plan (09/14/2022 3:45 PM EST): Continues using CPAP but does not find that this is very effective for her, does not have restful sleep due to issues with her mask, evaluates metrics in her fernando every morning Assessment & Plan (02/09/2022 10:37 AM EDT): Using CPAP consistently This has not been helpful in getting restful sleep for Diane as it has in the past, continues to follow with sleep specialist Assessment & Plan (04/02/2021 3:02 PM EDT): Using CPAP consistently This has not been helpful in getting restful sleep for Diane as it has in the past, follows with sleep specialist and has had follow up sleep studies done Assessment & Plan (04/28/2020 12:52 PM EDT): Using CPAP consistently Without CPAP has been found to snore excessively and have dips in O2 sat to low 80s on recent testing Assessment & Plan (10/19/2019 11:22 AM EDT): Uses CPAP Irritation from mask may be exacerbating current ocular symptoms but reports no changes in pressures Assessment & Plan (10/24/2017 1:11 PM EDT): Continues to use CPAP consistently Restless legs syndrome 06/23/2017 Type 2 diabetes mellitus wit hout complication, without long-term current use of insulin 06/17/2017 Overview (10/24/2017): DIABETES HISTORY Diagnosis - type 2 diabetes, fall 2015 Treatment history - Metformin h/o pancreatitis ~ Assessment & Plan (07/03/2024 11:57 AM EST): Remains of Metformin and doing well off this Having some issues on Trulicity, some nausea and increased gas; has not benefited from reduced appetite or portion control of problem foods, in Diane's case this is sweets; Diane has had weight gain unfortunately, after 3 months on Trulicity therapy she has not had any weight loss benefit We discussed change from Trulicity to Mounjaro, if able to only tolerate this at low dosage then may do well with combination of GLP/GIP and SGLT2i for dual action in different mechanisms, we had discussed SGLT2i therapy at our last visit and we will revisit if needed Continues to self monitor blood sugars more regularly than in the past, Diane provided data for review today, we discussed this and Diane is reassured that the data is reasonable Encouraged to continue her efforts on stopping smoking, this continues to prove challenging currently as her appetite may increase and may be more difficult to control, however we discussed that smoking cessation given her underlying CV history is critical, if she is able to tolerate Mounjaro and has more effective appetite suppression from this then she may be better able to handle smoking cessation Encouraged to contact me with any questions or concerns, we will follow up in 2- 3 months, Diane is encouraged to reach out via patient portal with updates, questions Assessment & Plan (03/21/2024 3:11 PM EDT): Continues Metformin at full dose, 2g daily, but has struggled with significant lower GI symptoms, we discussed plan for discontinuing this and transition to other therapy We discussed GLP1ra therapy, Diane did try oral GLP1ra therapy once daily but did not tolerate it so she will be on look out for side effects, if she tolerates Trulicity at low dosage then this will likely be continued longer prior to increasing, if able to only tolerate GLP1ra therapy at low dosage then may do well with combination of GLP1ra and SGLT2i for dual action in different mechanisms, we discussed SGLT2i therapy as well today Continues to self monitor blood sugars only sporadically at best, we did not have data to review today, Diane advised to self monitor more so that we can more appropriately evaluate overall glucose patterns particularly as she changes therapy Encouraged to continue her efforts on stopping smoking, this may be challenging currently as her appetite may increase and may be more difficult to control, however we discussed that smoking cessation given her underlying CV history is critical, if she is able to tolerate Trulicity and has some appetite suppression from this then she may be better able to handle smoking cessation Encouraged to return to healthier eating, we reviewed some considerations for meal/snack planning when on GLP1ra therapy and early satiety that she is likely to experience Encouraged to contact me with any questions or concerns, we will follow up in 3- 4 months, Diane is encouraged to reach out via patient portal with updates, questions Assessment & Plan (11/23/2022 10:41 AM EDT): Continue well-balanced nutritionally diet proper hydration and gentle, regular exercise routine along with regular blood glucose monitoring and antihypertensive therapy as instructed by her sales broker-Dr. López. Assessment & Plan (09/14/2022 3:50 PM EST): Continues Metformin at full dose, 2g daily, but continues with GI symptoms, we discussed discontinuing this to assess any change to GI symptomatology We will be in touch in 2 weeks to see how Diane is doing off this Diane trialed oral GLP1ra therapy once daily but did not tolerate it Continues to self monitor blood sugars only sporadically at best, but not at all in recent past, we did not have data to review today, Diane advised to self monitor more so that we can more appropriately evaluate overall glucose patterns if she remains off Metformin and potential for needed change to current antihyperglycemic medication regimen Encouraged to continue her efforts on stopping smoking Encouraged to continue efforts at healthy eating, we reviewed some healthy meal options for breakfast; current health issues/fatigue interfere with her ability to be active Encouraged to contact me with any questions or concerns, we will follow up in 2 weeks via patient portal and then later this year for a routine follow up Assessment & Plan (02/09/2022 10:42 AM EDT): Continues Metformin at full dose, 2g daily, and has been tolerating this reasonably well since optimizing to this again We had discussed a change to oral GLP1ra therapy once daily at our last visit Diane trialled this but did not tolerate it Continues to self monitor blood sugars only sporadically, we did not have data to review today, Diane advised to self monitor more so that we can more appropriately evaluate overall glucose patterns and potential for needed adjustment to current antihyperglycemic medication regimen Encouraged to continue her efforts on stopping smoking; Diane has been able to cut down on her cig and ecig use since our last visit Encouraged to continue efforts at healthy eating; current health issues/fatigue interfere with her ability to be active Encouraged to contact me with any questions or concerns, we will follow up at the end of the year Assessment & Plan (10/01/2021 6:09 PM EDT): Continues Metformin at full dose, 2g daily, not tolerating this very well, has been having more significant GI distress We discussed a change to oral GLP1ra therapy once daily along with a reduced dose of Metformin initially and if this proves to continue to be poorly tolerated then a discontinuation of this I will be in touch with Diane to see how she is doing after 1-2 weeks on Rybelsus, will need closer monitoring due to past h/o pancreatitis, she is aware of the possible risk Continues to self monitor blood sugars only sporadically, we did not have data to review today, Diane advised to self monitor more so that we can more appropriately evaluate overall glucose patterns and potential for needed adjustment to current antihyperglycemic medication regimen Encouraged to continue her efforts on stopping smoking, this is certainly negatively affecting her vascular health and the higher concentration of nicotine in ecigs may be contributing to sleep loss; Diane has been able to cut down on her cig and ecig use since our last visit Encouraged to continue efforts at healthy eating; current health issues/fatigue interfere with her ability to be active Encouraged to contact me with any questions or concerns Assessment & Plan (04/02/2021 3:06 PM EDT): Continues Metformin at full dose, 2g daily, tolerating well Continues to self monitor blood sugars only sporadically, advised to self monitor more so that we can more appropriately evaluate overall glucose patterns and potential for needed adjustment to current antihyperglycemic medication regimen or consider CGM pro Advised to resume vit B12 supplementation, we discussed the rationale for this given chronic Metformin therapy and how vit B12 deficiency may affect energy levels as well as DPN symptoms Encouraged to continue working on stopping smoking, this is certainly negatively affecting her vascular health; higher concentration of nicotine in ecigs may be contributing to sleep loss Encouraged to continue efforts at healthy eating; current health issues/fatigue interfere with her ability to be active Encouraged to contact me with any questions or concerns Assessment & Plan (09/22/2020 6:03 PM EST): Continues Metformin at full dose, 2g daily, tolerating ok Continues to self monitor blood sugars only sporadically, advised to self monitor more so that we can more appropriately evaluate overall glucose patterns and potential for needed adjustment to current antihyperglycemic medication regimen Continues on vit B12 supplementation Encouraged to stop smoking, this is certainly negatively affecting her vascular health Encouraged to continue efforts at healthy eating, trying to control intake of sweets; current health issues interfere with her ability to be active Encouraged to contact me with any questions or concerns Assessment & Plan (04/29/2020 4:09 PM EDT): CGM Trial Type of Diabetes: Diabetes mellitus Type 2 Assessment/HPI: Diane is here today for CGM trial. Procedures: Glucose Monitoring: Type of Sensor: Joelle Pro, Instruction: Patient Instructed on:, Calibrations, When to test BS, Troubleshooting, What to expect with the sensor, Patient instructed to remove sensor if redness, pain or bleeding occurs. . Insertion Site Selected: arms, LEFT Site Prep: Insertion site wiped with alcohol. Insertion: completed, area looks good, no redness, no bleeding. Plan: Procedure Codes: 35370 Glucose monitoring, cont Assessment & Plan (04/28/2020 1:01 PM EDT): Has increased Metformin to full dose, 2g daily, tolerating ok Continues to self monitor blood sugars only sporadically, we discussed likely benefit of CGM trial in helping assess overall glucose patterns and potential for needed adjustment to current antihyperglycemic medication regimen, Diane is interested in this and will return to have this placed soon Continues on vit B12 supplementation Encouraged to continue efforts at healthy eating, trying to control intake of sweets; current health issues interfere with her ability to be active Encouraged to contact me with any questions or concerns Assessment & Plan (10/19/2019 11:21 AM EDT): Continues to tolerate Metformin well, on 1000mg daily; we discussed optimizing this dosage if Diane notes more elevated blood sugars and/or her A1c is higher on recheck next month Encouraged to self monitor blood sugars more regularly to better assess patterns Continues on Vit B12 supplementation, most recent labs reviewed and this has improved with supplementation Advised to continue efforts to eat a healthy balanced diet, watch carbohydrate intake Encouraged to call with any questions or concerns Assessment & Plan (04/19/2019 4:53 PM EDT): Continues to tolerate Metformin well Blood sugars per Diane's report are in desirable range, she is not testing regularly and on Metformin monotherapy she certainly does not need to unless she checks and finds that her blood sugars are high or low then more consistent monitoring may help assessing blood sugar patterns Continues on Vit B12 supplementation, this should be reevaluated with next routine labs, if remains low normal then an SL formulation may be more effective Advised to return to more healthy diet, lower carbohydrate intake Encouraged to call with any questions or concerns Assessment & Plan (09/29/2018 3:02 PM EDT): Tolerating Metformin Low normal blood sugars and possible hypoglycemia during the day may be related to recent dietary changes in combination with Metformin therapy Advised to lower Metformin to 1/2 her current dose, will start 1g once daily Recent labs reviewed, vit B12 low normal range, advised to start supplementation with Vit B12 po 1000mcg once daily, will need recheck, if not absorbing B12 orally then may need to consider sc/im formulation Advised to continue healthy diet Encouraged to call with any questions or concerns regarding blood sugar patterns on lower dose of Metformin Assessment & Plan (12/26/2017 8:09 PM EDT): Off all meds since our last visit in October, worsened overall control Wishes to restart Metformin since GI issues did not significantly improve off it and Metformin helped with blood sugar control, we discussed best way to resume this and titrate gradually Encouraged to work on optimizing lifestyle Assessment & Plan (10/24/2017 1:16 PM EDT): Less tolerance of Metformin recently, has had GI discomfort, we discussed discontinuing this for a period of time which Diane is agreeable with Advised to return to healthier eating and monitoring blood sugars consistently, we will evaluate her control while off Metformin and if there is a need for medication therapy which is likely then we will consider basal insulin therapy which Diane is open to discussing Due to past h/o pancreatitis there will be a number of oral and injectible medications which will not be indicated for Diane, other oral medications may also carry some risk of GI side effects Advised to call with any questions or concerns, we will follow up in a few weeks Assessment & Plan (06/24/2017 11:34 AM EST): Continues with excellent control Tolerating Metformin ER well May be starting therapy for lymphoma, we discussed considerations regarding blood sugar management if chemo regimen will include steroids but in general this should not affect continuing her Metformin therapy, advised to call us with any questions once this therapy is started Advised to continue her efforts at healthy eating and recommend regular physical activity Cerebrovascular accident (CVA) Assessment & Plan (08/29/2024 4:47 PM EST): On coumadin Being followed by cardiology Blood sugar control and blood pressure control are important in mitigating risks Currently tolerating GLP/GIP which should be providing class related CV benefits though this is not yet documented for Mounjaro LDL goal <55 A1c goal <7% Blood pressure goal <130/80 Smoking cessation discussed again, this has been positively impacted by Mounjaro therapy as Diane has less craving for cigarettes and finds herself smoking less Assessment & Plan (10/19/2019 11:18 AM EDT): On coumadin Being followed by cardiology Also has routine follow up with neurology and has discussed recent CVA with her neurologist LDL goal <70 A1c goal <7% Resolved Problems Problem Noted Date Diagnosed Date Resolved Date Obesity 06/23/2017 06/08/2021 Encounters Date Type Department Care Team Description 03/29/2025 Refill [facility] [address] [place] [address] Manuel Merrill MD Medication Refill 03/26/2025 Refill [facility] [address] [place] [address] Salima López MD Medication Refill 03/08/2025 10:30 AM EDT Office Visit [facility] [address] [place] [address] Manuel Merrill MD Obstructive sleep apnea (Primary Dx); Acute exacerbation of COPD with asthma; Chronic cough; Cervicalgia; Chronic bilateral thoracic back pain; Long-term current use of opiate analgesic; Other hyperlipidemia; Acquired hypothyroidism; Type 2 diabetes mellitus with diabetic mononeuropathy, without long-term current use of insulin; Iron deficiency anemia, unspecified iron deficiency anemia type; Arthralgia, unspecified joint; Chronic bilateral low back pain with bilateral sciatica; Vitamin B 12 deficiency 03/08/2025 Orders Only [facility] [address] [place] [address] Milan Amaya MD 02/25/2025 Documentation [facility] [address] [place] [address] Manuel Merrill MD 02/18/2025 Refill [facility] [address] [facility] [place] [address] Manuel Merrill MD 01/29/2025 Orders Only [facility] [address] [place] [address] ProviderMilan MD 01/28/2025 2:40 PM EDT Office Visit [facility] [address] [place] [address] Salima López MD Type 2 diabetes mellitus with diabetic mononeuropathy, without long-term current use of insulin (Primary Dx); Primary hypertension; Acquired hypothyroidism; Other hyperlipidemia; Obstructive sleep apnea syndrome 01/01/2025 Telephone [facility] [address] [place] [address] Manuel Merrill MD Medication Management 12/31/2024 Orders Only [facility] [address] [place] [address] Provider, MD Milan from Last 3 Months Immunizations Immunization Administration Dates Next Due COVID-19 (Pre-05/09) Moderna Vaccine, mRNA, PF 10/06/2020,09/08/2020 INFLUENZA, SPLIT VIRUS, TRIVALENT PF 05/11/2016 INFLUENZA, SPLIT VIRUS, TRIV ALENT W/ PRESERVATIVE IM 04/17/2015,05/01/2014,05/12/2012,04/26,06/01/2010 Influenza High-Dose Quadriva lent Preservative Free IM 04/21/2022,04/02/2021 Influenza High-Dose Trivalen t Preservative Free IM 03/25/2025,04/06/2024,04/18/2019 Influenza Quadrivalent Adjuv anted Preservative Free IM 03/19/2023,03/25/2020 Influenza Quadrivalent Prese rvative Free IM 04/04/2018,04/08/2017 Influenza trivalent preserva tive free intradermal 03/22/2013 Influenza, Unspecified Formulation 06/15/2010, Pneumococcal conjugate PCV13 05/05/2018 Pneumococcal polysaccharide PPSV23 08/24/2019, Tdap 07/06/2012 Zoster recombinant 05/25/2023,03/19/2023 Family History Medical History Relation Comments Irritable bowel syndrome Daughter Migraines Daughter Aortic aneurysm Father Cardiovascular disease Father Hypertension Maternal Grandfather Hypertension Maternal Grandmother Multiple sclerosis Mother Stroke Mother Diabetes Paternal Aunt 1 Endometrial cancer Paternal Aunt 2 Cancer Paternal Aunt 3 Hypertension Paternal Grandmother Diabetes Sister 1 Ovarian cancer Sister 2 Leukemia Sister 3 Relation Status Comments Daughter Father Maternal Grandfather Maternal Grandmother Mother Paternal Aunt 1 Paternal Aunt 2 Paternal Aunt 3 breast cancer Paternal Grandmother Sister 1 at 71 y/[place] s suppose to start on dialysis but didn't while she was at the hospital. Sister 2 at 62 y/oov jerod cancer and aneurysm in brain schwannoma and mini stroke Sister 3 Alive Sister 4 Alive Sister 5 Alive Social History Tobacco Use Types Packs/Day Years Used Date Smoking Tobacco: Every Day Cigarettes 0.3 58.7 Started: 1966 Passive Smoke Exposure: Current Smokeless Tobacco: Never Tobacco Cessation:Ready to Q uit: Not Asked; Counseling Given: Not Answered Comments:2 cigarettes QD-10/30/24 Alcohol Use Standard Drinks/Week Comments [...] have you moved in the past 12 mon ths? One time 12/09/2020 06 Are you [...] file Not on file Not on file Last Filed Vital Signs Vital Sign Reading Time Taken Comments Blood Pressure 108/64 03/08/2025 10:43 AM EDT Pulse 90 03/08/2025 10:43 AM EDT Temperature 36.6 C (97.9 F) 10/30/2024 10:38 AM EDT Respiratory Rate 16 03/08/2025 10:43 AM EDT Oxygen Saturation 95% 03/08/2025 10:43 AM EDT Inhaled Oxygen Concentration - - Weight 52.8 kg (116 lb 6.4 oz) 03/08/2025 10:43 AM EDT Height 149.9 cm (4' 11.02 ) 03/08/2025 10:43 AM EDT Body Mass Index 23.5 03/08/2025 10:43 AM EDT Plan of Treatment Upcoming Encounters Date Type Department Care Team (Late st Contact Info) Description 06/03/2025 11:30 AM EST Office Visit [facility] [address] [place] [address] Manuel Merrill MD [address] [place] [address] 08/09/2025 11:00 AM EST Office Visit [facility] [address] [place] [address] Salima López MD 22 [facility], [address] [place] [address] 11/25/2025 10:00 AM EDT Office Visit [facility] [address] [place] [address] Manuel Merrill MD [address] [place], [place] [id number] Health Maintenance Due Date Last Done Comments COLOGUARD 1998 FIT TEST 1998 FOBT 1998 SIGMOIDOSCOPY 1998 VIRTUAL COLONOSCOPY 1998 RSV VACCINE (1 - Risk 60-74 years 1-dose series) 2013 Adult Td,Tdap Booster 07/06/2022 07/06/2012 URINE MICROALBUMIN/CREATININE RATIO 01/10/2025 01/11/2024, 01/11/2024, 05/11/2023, Additional history exists COVID-19 VACCINE ( season) 2025 04/21/2022, 06/01/2021, 10/06/2020, Additional history exists HEMOGLOBIN A1C 06/30/2025 12/29/2024, 08/18, 05/28/2024, Additional history exists BLOOD PRESSURE 09/08/2025 03/08/2025 DIABETIC EYE EXAM 10/11/2025 10/11/2024, , 08/21/2019, Additional history exists DEPRESSION SCREENING 03/08/2026 03/08/2025, 09/05/19 21 SMOKING Hx and SMOKELESS TOBACCO SCREENING 03/08/2026 03/08/2025 MAMMOGRAM 01/12/2027 01/12/2025, 12/17, 12/03/2023, Additional history exists COLONOSCOPY 03/08/2028 03/08/2025, 05/18, 02/09/2017 COLORECTAL CANCER SCREENING 03/08/2028 HEPATITIS C SCREENING Completed 04/19/2011 PNEUMOCOCCAL VACCINES (50+ years) Completed 08/24/2019, 05/05/2018, 04/17/2007 OSTEOPOROSIS SCREENING INITIAL (ONE-TIME) Completed 08/31/2023, 08/29/2023, 12/28/2018 INFLUENZA VACCINE Completed 03/25/2025, , 03/19/2023, Additional history exists HEPATITIS A VACCINES Aged Out No long er eligible based on patient's age to complete this topic HIB VACCINES Aged Out No longer eligi ble based on patient's age to complete this topic MENINGOCOCCAL VACCINES (ACWY) Aged Out No longer eligible based on patient's age to complete this topic MENINGOCOCCAL VACCINES (B) Aged Out N o longer eligible based on patient's age to complete this topic Medical Devices Not on file Procedures Procedure Name Priority Date/Time Associated Diagnosis Comments OUTSIDE PATHOLOGY Routine 03/08/2025 12: 27 PM EDT COLONOSCOPY FOR RESULT ENTRY ONLY Routine 03/08/2025 12:25 PM EDT HEMOGLOBIN A1C Routine 01/28/2025 2:53 PM EDT Type 2 diabetes mellitus with diabetic mononeuropathy, without long-term current use of insulin HM MAMMOGRAPHY Routine 01/12/2025 9:53 AM EDT HM MAMMOGRAPHY Routine 01/12/2025 OUTSIDE HEMOGLOBIN A1C Routine 12/29/2024 HM DIABETES EYE EXAM FOR RESULT ENTRY ONLY Routine 10/11/2024 OUTSIDE URINE MALB/CRE RATIO Routine 01/11/2024 BD DXA SCREENING Routine 08/31/2023 3:41 PM EST Post-menopausal from Last 3 Months or Most Recently Relevant to Health Maintenance Results * Outside Pathology (03/08/2025 12:27 PM EDT) [facility] Provider PATHOLOGY ORDERABLES Selin l Result * COLONOSCOPY FOR RESULT ENTRY ONLY (03/08/2025 12:25 PM EDT) Historical Provider HEALTH MAINTENANCE Final Result * Hemoglobin A1c (01/28/2025 2:53 PM EDT) Blood Manule Merrill MD LAB BLOOD ORDERABLES Final Re sult [address] [address] * MAMMOGRAPHY FOR RESULT ENTRY ONLY (01/12/2025 9:53 AM EDT) Historical Provider HEALTH MAINTENANCE Final Result * HM MAMMOGRAPHY FOR RESULT ENTRY ONLY (01/12/2025) HM Mammogram BI-RADS 2 Benign findings EXTERNAL NON-INTERFACE D REF LAB Historical Provider HEALTH MAINTENANCE Final Result EXTERNAL NON-INTERFACED REF LAB * Outside HbA1c (12/29/2024) Hemoglobin A1c - External 6.2 % EXTERNAL NON-INTERFACED REF LAB Historical Provider LAB BLOOD ORDERABLES Selin l Result EXTERNAL NON-INTERFACED REF LAB * DIABETES EYE EXAM FOR RESULT ENTRY ONLY (10/11/2024) EYE EXAM no diabetic retinopathy Historical Provider MD HEALTH MAINTENANCE Final Result * Outside Urine MALB/Cre Ratio (01/11/2024) Microalbumin/Cr eatinine Ratio, urine - External 11.9 Historical Provider LAB BLOOD ORDERABLES Selin l Result * DXA Screening (08/31/2023 3:41 PM EST) Anatomical Region Laterality Modality Bone Density Bone Density Manuel Merrill MD IMG BD BONE DENSITY DEXA Selin l Result from Last 3 Months or Most Recently Relevant to Health Maintenance Insurance MEDICARE PART A & B Member Subscriber Plan / Payer (Ef fective 1997-Present) Name:Diane Looney Member ID:[id number] Relation to Subscriber:Self Name:Diane Looney Subscriber ID:[id number] Payer ID:[id number] Group ID:Not on file Type:Medicare Address: [facility] [employer] [email or web address] [address] [place] [address] [facility] & B [facility] MEDICARE PART A & B MEDICARE PART A & B MEDICARE PART A & B MEDICARE PART A & B MEDICARE PART A & B B MEDICARE PART A & B Member Subscriber Plan / Payer (Ef fective 1997-Present) Name:Diane Looney Member ID:[id number] Relation to Subscriber:Self Name:Diane Looney Subscriber ID:[id number] Payer ID:[id number] Group ID:Not on file Type:Medicare Address: [employer] [address] [place] [address] [place], [place] [address]B MEDICARE PART A & B [facility] [place] [phone] Advance Directives For more information, please contact: [phone] (9AM - 5PM [facility], Tuesday-Tuesday) Documents on File Type Date Recorded Patient Plate Gauger Expl anation Healthcare Proxy 04/26/2019 Healthcare Proxy Care Teams Side Gluer Relationship Specialty Start Date End Date Manuel Merrill MD [address] [place] [address] PCP - General 06/16/17 Manuel Merrill MD [address] [place] [address] Insurance Assigned Provider 10/22/23 Nurys Nguyen MD [address] [place] [address] Neurology 11/22/19 Earnest Camarillo MD [address] [place] [address] [address] Neurology 03/28/20 Jany Katz NP [address] [place] [address] Family Medicine 03/28/20 Julio Cesar Ferguson MD [address] [place] [address] [place] [address] 04/04/20 David Gonzáles MD [address] [place] [phone] [email or web address] Neurology 08/04/20 Waqar Barrera MD [address] [place] [address] Cardiology 08/08/20 Raad Chisholm MD [address] [place] [address] Cardiology 09/05/20 Jude Cordoba MD [address] [place], [place] [address] [address] Orthopedic Surgery 08/29/23 Additional Source Comments The information contained in this document represents components of the legal health record. It is not the complete legal health record.[facility]
--- OUTSIDE RECORDS SUMMARY | 2025-04-01 10:09 | XMS_ITS | Patient Health Record ---
Author Organization [facility] Address [address] [place] [address] Care Team Providers Care Building Attendant Name Role Phone Manuel Merrill MD Primary Care Provider Kaleb Barrera Unavailable [phone] Allergies Allergen (clinical drug ingredient) Drug/Non Drug [...] Problem Status W/U Status Risk Notes Problem [id number] Irritable bowel syndrome without diarrhea (K58.9) Active confirmed Problem [id number] Abdominal pain, diffuse (R10.9) Active confirmed Plan Of Treatment Future Test Test Name Order Date UPPER GI ENDOSCOPY 04/21/2012 Insurance Providers Payer Name Payer Address Payer Phone Subscriber Number Group Number Insured Name Patient Relationship to Insured Coverage Start Date Coverage End Date MEDICARE OF [place] [address] [place] [phone] [id number] MELVIN SMITH Self - patient is the insured MEDICAID OF [employer] [address] [place] [phone] [id number] MELVIN SMITH Self - patient is the insured Medical (General) History Medical History History ICD Code colonoscopy 08-20-2009--only a hyperplasti c polyp gastric ulcer/gastritis on E GD with Dr. Shaw in 1995, with H.pylori-s/p Rx with antibiotics irritable bowel syndrome fibromyalgia mitral valve prolapse COPD Denies CA,DM,CVA,renal disease Kidney stone, s/p ESWL Pancreatitis, ? due to gallstones Interstitial cystitis EGD in 05/2012 neg except fo r a HH--biopsies were negative for eosinophilic esophagitis Sees Dr. Kasper from ENT for the swallow ing issues as well--had a neg w/u Describes a normal U/S of e abdomen at [facility]; had a normal UGI in 03/2013 and normal CBC and LFT's Surgical History Surgery Date(Month/Year) removal of fibroids ovarian cysts bladder suspension [facility] Appy Benign breast biopsy
== END 2025-04-01 09:17 | disposition home or self-care (01) ==
LOC: HO.ACS 08:51
PROVIDERS: PCP Internal Medicine; Visit Provider Internal Medicine Medical Oncology
DX: Z79.01 Long term (current) use of anticoagulants (principal)

== ENCOUNTER → 2025-04-01 08:51 | Outpatient (BNVA) | payer MEDICARE, OTHER, SELFPAY | PROVIDERS: PCP Internal Medicine; Visit Provider Internal Medicine Medical Oncology | DX: Z51.81 Encounter for therapeutic drug level monitoring (principal); Z79.01 Long term (current) use of anticoagulants | CPT/HCPCS: 85610; 99211 ==

== ENCOUNTER 2025-04-15 09:05 | Outpatient (AMB) | payer MEDICARE, OTHER, SELFPAY ==
[2025-04-15 09:16] LABS: Prothrombin Time Whole Bld POC 37.7 sec (11.1-13.5); ~PT, ~INR - Anti Coag Clinic 3.1 (0.9-1.1)
--- NOTE | 2025-04-15 09:20 | MHC.OFFVISCO ---
Intake Intake Visit Reasons: Anticoagulation Allergies vancomycin (VANCOMYCIN) Allergy (Intermediate, Verified 04/15/25 09:09) ITCHING/RASH metoclopramide (From Reglan) Adverse Reaction (Intermediate, Verified 04/15/25 09:09) Nausea and Vomiting Medication List - Last Reconciled 04/15/25 by Catherine Bales, RN albuterol sulfate 90 mcg/actuation 2 puffs inhalation Q4H PRN albuterol sulfate 2.5 mg inhalation Q8H PRN amlodipine 5 mg PO DAILY atorvastatin 40 mg PO DAILY blood sugar diagnostic As directed carisoprodol (Soma) 350 mg PO TID PRN cholecalciferol (vitamin D3) 25 mcg PO DAILY clopidogrel 75 mg PO DAILY cyanocobalamin (vitamin B-12) PO diclofenac sodium 1% topical ezetimibe 10 mg PO DAILY famotidine 20 mg PO BEDTIME ferrous sulfate 325 mg PO DAILY food supplemt, lactose-reduced (Boost) PO hydrocortisone 2.5% appl topical lancets As directed magnesium oxide 400 mg PO DAILY metoprolol succinate ER 50 mg PO DAILY 90 days ondansetron HCl 8 mg PO Q12H PRN oxcarbazepine 300 mg PO BID oxycodone 5 mg PO BEDTIME PRN pramipexole 1 mg PO tirzepatide (Mounjaro) mg subcut umeclidinium-vilanterol 62.5-25 mcg/actuation (Anoro Ellipta) inhalation DAILY warfarin 5 mg See Protocol PO DIRECTED Held on 02/12/25. Instructions: Resume on 02/12/25. Ok to resume warfarin tonight Nursing Note INR: 3.2 out of therapeutic range 2-3 Medications and supplements reviewed Patient status: feels well Medications or supplements: no changes Diet: no changes Denies any signs and symptoms of bleeding or clotting or unusual bruising Bleeding, bruising, clotting discussed Nutritional guidance given: pt to have a serving of greens today Dose: 5mg X 6 days and 7.5mg X 1 day F/U INR Date: 2 weeks?? Patient verbalizing understanding of instructions given. 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
--- OUTSIDE RECORDS SUMMARY | 2025-04-15 09:40 | XMS_ITS | Patient Health Record ---
Author Organization [facility] Address [address] [place] [address] Care Team Providers Care Preparation Room Manager Name Role Phone Manuel Merrill MD Primary Care Provider Kaleb Barrera Unavailable [phone] Allergies Allergen (clinical drug ingredient) Drug/Non Drug [...] Problem Status W/U Status Risk Notes Problem [id number] Irritable bowel syndrome without diarrhea (K58.9) Active confirmed Problem [id number] Abdominal pain, diffuse (R10.9) Active confirmed Plan Of Treatment Future Test Test Name Order Date UPPER GI ENDOSCOPY 04/21/2012 Insurance Providers Payer Name Payer Address Payer Phone Subscriber Number Group Number Insured Name Patient Relationship to Insured Coverage Start Date Coverage End Date MEDICARE OF [place] [address] [place] [address] [phone] [id number] MELVIN SMITH Self - patient is the insured MEDICAID OF [facility] [address] [place] [phone] [id number] MELVIN SMITH Self - patient is the insured Medical (General) History Medical History History ICD Code colonoscopy 08-20-2009--only a hyperplasti c polyp gastric ulcer/gastritis on E GD with Dr. Shaw in 1995, with H.pylori-s/p Rx with antibiotics irritable bowel syndrome fibromyalgia mitral valve prolapse COPD Denies CT,DM,CVA,renal disease Kidney stone, s/p ESWL Pancreatitis, ? due to gallstones Interstitial cystitis EGD in 05/2012 neg except fo r a HH--biopsies were negative for eosinophilic esophagitis Sees Dr. Kasper from ENT for the swallow ing issues as well--had a neg w/u Describes a normal U/S of e abdomen at [facility]; had a normal UGI in 03/2013 and normal CBC and LFT's Surgical History Surgery Date(Month/Year) removal of fibroids ovarian cysts bladder suspension [facility] App[facility] Benign breast biopsy
== END 2025-04-15 09:29 | disposition home or self-care (01) ==
LOC: HO.ACS 09:05
PROVIDERS: PCP Internal Medicine; Visit Provider Internal Medicine Medical Oncology
DX: Z79.01 Long term (current) use of anticoagulants (principal)

== ENCOUNTER → 2025-04-15 09:05 | Outpatient (BNVA) | payer MEDICARE, OTHER, SELFPAY | PROVIDERS: PCP Internal Medicine; Visit Provider Internal Medicine Medical Oncology | DX: Z51.81 Encounter for therapeutic drug level monitoring (principal); Z79.01 Long term (current) use of anticoagulants; Z86.0100 Personal history of colon polyps, unspecified; D50.9 Iron deficiency anemia, unspecified; K21.00 Gastro-esophageal reflux disease with esophagitis, without bleeding; Z98.890 Other specified postprocedural states | CPT/HCPCS: 85610; 99211; 99212 ==

== ENCOUNTER 2025-04-15 13:55 | Outpatient (AMB) | payer MEDICARE, MEDICAID, SELFPAY ==
--- NOTE | 2025-04-15 14:02 | A.OFFVIS_ITS ---
Vital Signs 04/15/25 14:04 Height 4 ft 11 in Weight 110 lb 3.698 oz BMI 22.3 BP 107/49 L Blood Pressure Location Lt brachial Position Sitting Pulse 82 Intake Visit Reasons: Post op - EGD/COLO Intake Note: Diane presents in the office as a EGD and COLO post op. CC: states this is just the follow up for her results. 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 Initial visit 05/03/22: Patient states that for the past 1 year, she has had tremendous fatigue, to the point where there are some days when she does not even have the energy to get out of bed. For the past 2-3 months, she has also been noticing increased bloating, early satiety, decreased appetite and nausea. Reports increased nausea and burping. She has lost around 15 lb during this time. This is also associated with loose watery diarrhea with urgency. Triggered by food intake. Nighttime symptoms present. At an average, has 5-6 liquidy bowel movements which are nonbloody. She thinks she may have had 1-2 black bowel movements last month. Most recent endoscopy was a colonoscopy by Dr. Casey 5-6 years ago per her report. Was told she had polyps and will be due for repeat in 5 years. Of note, previous endoscopy notes by Dr. Echavarria also mentions family history, but patient denies any family history of colon cancer in first-degree relatives. Sister has colon polyps. Of note, she also brings up chronic complaint of dysphagia. She has had this for many years. Describes it as a sensation of food getting stuck in middle of her chest causing immense pain and nausea. Previous workup as per report has included barium study, upper endoscopy, motility study. All this was done more than 5 years ago and [facility]. She was told she possibly has esophageal spasm , but is not on any treatment. Patient was recently seen in the emergency room in January for fevers and left lower quadrant pain. CT scan was done that was read with stomach wall thickening, panc tail calcifications and L sided colitis. EGD/Colonoscopy 05/2022: * Grade A esophagitis * Esophageal spasms * Empiric Savary dilation to 20 mm? * Gastritis (biopsy) * Normal duodenum * Normal colon and terminal ileum mucosa * Total of 4 polyps removed from ascending, transverse colon and rectum. * Diverticulosis * External and internal hemorrhoids Path: A. Stomach, random, biopsy:? Oxyntic mucosa within normal limits; no Helicobacter organisms seen. B.? Colon, transverse, polypectomies (2):? Tubular adenomata; negative for high- grade dysplasia or carcinoma. C.? Colon, ascending, polypectomy:? Tubular adenoma; negative for high-grade dysplasia or carcinoma. D.? Rectum, polypectomy:? Hyperplastic mucosal polyp. 06/18/22: While the nausea, early satiety and weight loss seems to have stabilized after starting omeprazole, she continues to report intermittent sensation food getting stuck in her mid chest. Yesterday morning, also had severe episode of heartburn with regurgitation. Had a barium swallow yesterday, which has not been read yet . Reviewed medication use, has been taking omeprazole with meal, not before. Also continues to smoke. Records from [facility] re esophageal motility pending. 09/01/22: Motility study reviewed. Normal motility. Patient continues to complain of significant nausea and pain in her chest that radiates to her back. Associated with nausea but no vomiting or regurgitation. Nausea improves with food intake. Has had some more weight loss, although not to the same degree as before. This was also discussed with the patient over the phone last week, and a CT angio abdomen has already been ordered to rule out chronic mesenteric ischemia, she does have significant peripheral vascular disease (sees Dr. Venegas at [facility]). Labs reviewed, was noted to have elevated ESR January 2022. Reports has an appointment with the field attendant. Patient is quite frustrated that she has daily fatigue and very low energy to do anything. Continues to have sensation of difficulty swallowing and sensation of food getting stuck along with nausea without any unifying diagnosis. Also reports joint stiffness all over her body specially in the morning. Sometimes, even getting up the stairs is a huge task. 11/6/23: Reports had not followed up as had been feeling quite well. Abd discomfort and nausea had resolved. She had also gained her weight back. However the past few weeks feels that she now has a gnawing pain in the epigastric region assoc with nausea. Notices discomfort is worse when she is hungry. A week ago also noticed a different odor to her stool for a couple of days, but did not remember to actually look for the color of the stool. Continues to smoke - almost 4-5 cigs a day but trying to quit. No NSAIDs. 10/04/23: * Normal esophagus (dilation) * Normal stomach (biopsy) * Normal duodenum Diagnosis Stomach, biopsy: Antral-type and oxyntic mucosa with mild chronic inactive inflammation; no Helicobacter organisms seen. 10/19/23: Reports improvement in swallowing since empiric dilation. Nausea better as well. Cont to report postprandial discomfort and bloating with feeling of fullness. Patient also recently seen by Cardiology for symptoms of lightheadedness and atypical chest pain. Scheduled for a perfusion scan. 03/07/24: Here for follow up. In the meantime, had cardiac cath with revascularization of RCA (Dr Lanza, [facility]). Also reports experienced gnawing abd pain with nausea for which she had called the office. Carafate rxed by Dr German. Carafate helped a bit. Also reports loose BM immediately after taking a metformin dose. Main issue is remains fatigue, stays in bed most of the day. PRev have discussed rheum evaluation with pt yaron for ? PMR based on her sx distribution and elevated ESR but has not been seen recently. Pt also with osteopenia on DEXA. 07/04/24: Pt here for routine follow up. Off metformin now so the diarrhea is gone. However now reports constipation is bothering her these days. Reports had a few episodes of rectal bleeding after she had hard stools and had to strain. However continued to have bleeding for a few more BMs after that despite not straining. Is having a few side effects of Trulicity as well including increased nausea and belching. Labs reviewed, has new anemia with iron deficiency. Does not note any melena or hematochezia, no change in weight. Reports immense fatigue which is relapsing remitting x years. Pt had PCI in January 2024 and also has factor V leidin so will need anti- thrombotic management sarah-procedure. 10/12/24: Pt here for follow up. EGD/colo had originally booked for earlier this month but had to be pushed out to later due to recommendation to cont DAPT x 12 months at least. In the meantime, pt had a new suspicious lung lesion measuring 1.[address] up [address] chest 09/2024. Its a bit confusing if its in LLL or RLL lobe based on the detailed CT report. Pt undergoing PET scan next month followed by bronch. Pt unfortunately continues to smoke though does note Mounjaro has reduced cravings. Pt from GI standpoint is doing well. Anemia responsive to iron supplementation. Main CC is sour brash first thing in the morning which get better after she takes famotidine in the morning. Also takes sucralfate PRN. 04/15/25: Here for follow up. Had R lung nodule work up done through [facility] pulm. In the end determined to be inflammatory nodule. Pt also had egd/colo done 01/2025. Gastritis. No H Pylori. Focus of GIM in antrum. Colon polyp bx were benign. Pt does report did not have a pleasant experience with anesthesia. To recall, the bidirectional endoscopy was done for evaluation of anemia which has since resolved. Off iron supplements. SHe is also off plavix as of summer 2024. Pt started mounjaro for DM - has also lost weight from this. Otherwise reflux is well controlled. Cont on famotidine. PFSH Medical History Coronary artery calcification seen on CAT scan History of colon polyps (~2009) Type II diabetes mellitus, well controlled Personal history of nicotine dependence Factor 5 Leiden mutation, heterozygous Obstructive sleep apnea on CPAP (~2008) Osteopenia (~2018) Pacemaker (~2021) History of CVA (cerebrovascular accident) (~2019) Hyperlipidemia PFO (patent foramen ovale) (~2019) HTN (hypertension) COPD (chronic obstructive pulmonary disease) Current use of anticoagulant therapy (~2019) Surgical History Stented coronary artery S/P cardiac cath Hx of cystoscopy Hx of blepharoplasty History of esophagogastroduodenoscopy (EGD) History of colonoscopy History of unilateral oophorectomy History of cholecystectomy (~2000) History of bladder surgery (~1999) History of pacemaker (~2021) Family History Mother Stroke Multiple sclerosis Diabetes Father CAD (coronary artery disease) Social History Alcohol intake: never Patient Tobacco Use Status: Current everyday Tobacco user Tobacco use type: Cigarette Cigarettes Per Day: 3 Years Smoked: 40 +/- e-Cigarette/Vaping Use: Currently Using service: No Current occupational status: retired Review of Systems Const All systems reviewed & are unremarkable except as noted in HPI and below Physical Exam Exam Exam: No apparent distress Nonicteric Abdomen soft, nondistended Alert and oriented x3, normal gait Vital Signs: Last Vital Signs Pulse 82 04/15/25 14:04 BP 107/49 L 04/15/25 14:04 BMI result Body Mass Index 22.3 Assessment & Plan Assessment & Plan (1) History of colon polyps: Onset Date: ~2009 Code(s): Z86.010 - Personal history of colon polyps Category: Medical (2) Iron deficiency anemia: Code(s): D50.9 - Iron deficiency anemia, unspecified Category: Medical (3) GERD with esophagitis: Code(s): K21.00 - Gastro-esophageal reflux disease with esophagitis, without bleeding Category: Medical Plan 1. Iron deficiency anemia -- resolved. Pt is off iron supplementation. Bidirectional egd/colo normal. Possibly had mild small bowel bleeding aggravated by plavix which was self limiting now that plavix has been discontinued. 2. GERD Well controlled on famotidine daily now. 3. CRC screening Future colo in 5 years contingent on pt's clinical status Follow up 1 year Coding Level of Care Code Est Pt Level 4 (00153) Diagnoses History of colon polyps Z86.010 Iron deficiency anemia D50.9 GERD with esophagitis K21.00
[2025-04-15 14:04] VITALS: BP 107/49; PULSE 82; BMI 22.3
== END 2025-04-15 14:26 | disposition home or self-care (01) ==
LOC: HO.HGI 13:56
PROVIDERS: PCP Internal Medicine; Visit Provider Internal Medicine
DX: Z86.0100 Personal history of colon polyps, unspecified (principal); D50.9 Iron deficiency anemia, unspecified; K21.00 Gastro-esophageal reflux disease with esophagitis, without bleeding
CPT/HCPCS: 99214

== ENCOUNTER 2025-04-26 06:01 | Outpatient (REF) | payer MEDICARE, MEDICAID, SELFPAY ==
[2025-04-26 06:28] LABS: MANUAL DIFF FLAG NO
[2025-04-26 07:14] LABS: Hematocrit 43.9 % (37.0-47.0); Hemoglobin 14.7 g/dl (12.0-16.0); Imm Gran Abs Auto 0.02 X10*3/uL (0.00-0.03); Imm Gran Pct Auto 0.2 % (0.0-0.4); Lymphocytes Absolute Auto 3.2 X10*3/uL (1.2-4.9); Mean Corpuscular HGB Conc 33.5 g/dl (31.0-35.0); Mean Corpuscular Hemoglobin 31.5 pg (27.0-33.0); Mean Corpuscular Volume 94.2 fL (80.0-98.0); NRBC Abs Auto 0.000 X10*3/uL (0.0-0.012); NRBC Pct Auto 0.0 /100WBC (0.0-0.2); Platelet Count 253 X10*3/uL (160-400); Red Blood Count 4.66 X10*6/uL (4.20-5.50); White Blood Count 8.3 X10*3/uL (4.8-10.8)
[2025-04-26 07:49] LABS: Alanine Aminotransferase 25 U/L (0-31); Albumin Level 4.4 g/dL (3.5-5.0); Alkaline Phosphatase 79 U/L (39-117); Anion Gap 14 (12-20); Aspartate Amino Transferase 26 U/L (5-31); Blood Urea Nitrogen 11 mg/dL (9-16); Calcium 9.6 mg/dL (8.4-10.2); Carbon Dioxide 22 mmol/L (22-29); Chloride 109 mmol/L (96-108); Cholesterol 148 mg/dL (<200); Estimated Glomerular Filt Rate > 60; HDL Cholesterol 60 mg/dL (>40); Potassium 3.8 mmol/L (3.3-5.1); Sodium 141 mmol/L (135-145); Total Protein 7.2 g/dL (6.5-8.0); Triglycerides 103 mg/dL (<150)
[2025-04-26 08:06] LABS: Thyroid Stimulating Hormone 3.35 uIU/mL (0.32-4.0)
[2025-04-26 08:19] LABS: Vitamin B12 > 2000 pg/mL (200-900)
[2025-04-26 08:27] LABS: Microalbum/Creatinine Ratio Ur 8.2 ug/mg cr (<30)
== END 2025-04-26 06:02 | disposition home or self-care (01) ==
LOC: HO.LAB 06:01
PROVIDERS: PCP Internal Medicine; Visit Provider Internal Medicine
DX: E11.41 Type 2 diabetes mellitus with diabetic mononeuropathy (principal); D50.9 Iron deficiency anemia, unspecified; G89.29 Other chronic pain; M54.42 Lumbago with sciatica, left side; M54.41 Lumbago with sciatica, right side; E53.8 Deficiency of other specified B group vitamins; E78.49 Other hyperlipidemia; E03.9 Hypothyroidism, unspecified
CPT/HCPCS: 36415; 80053; 80061; 82043; 82570; 82607; 83036; 84443; 85025

== ENCOUNTER 2025-05-03 08:56 | Outpatient (AMB) | payer MEDICARE, MEDICAID, SELFPAY ==
[2025-05-03 09:05] LABS: Prothrombin Time Whole Bld POC 37.4 sec (11.1-13.5); ~PT, ~INR - Anti Coag Clinic 3.1 (0.9-1.1)
[2025-05-03 09:05] LABS: Prothrombin Time Whole Bld POC 37.6 sec (11.1-13.5); ~PT, ~INR - Anti Coag Clinic 3.1 (0.9-1.1)
--- NOTE | 2025-05-03 09:12 | MHC.OFFVISCO ---
Intake Intake Visit Reasons: Anticoagulation Allergies vancomycin (VANCOMYCIN) Allergy (Intermediate, Verified 05/03/25 08:57) ITCHING/RASH metoclopramide (From Reglan) Adverse Reaction (Intermediate, Verified 05/03/25 08:57) Nausea and Vomiting Medication List - Last Reconciled 05/03/25 by Catherine Bales, RN albuterol sulfate 90 mcg/actuation 2 puffs inhalation Q4H PRN albuterol sulfate 2.5 mg inhalation Q8H PRN amlodipine 5 mg PO DAILY atorvastatin 40 mg PO DAILY blood sugar diagnostic As directed carisoprodol (Soma) 350 mg PO TID PRN cholecalciferol (vitamin D3) 25 mcg PO DAILY cyanocobalamin (vitamin B-12) PO diclofenac sodium 1% topical ezetimibe 10 mg PO DAILY famotidine 20 mg PO BEDTIME food supplemt, lactose-reduced (Boost) PO hydrocortisone 2.5% appl topical lancets As directed magnesium oxide 400 mg PO DAILY metoprolol succinate ER 50 mg PO DAILY 90 days ondansetron HCl 8 mg PO Q12H PRN oxcarbazepine 300 mg PO BID oxycodone 5 mg PO BEDTIME PRN pramipexole 1 mg PO tirzepatide (Mounjaro) mg subcut umeclidinium-vilanterol 62.5-25 mcg/actuation (Anoro Ellipta) inhalation DAILY warfarin 5 mg See Protocol PO DIRECTED Held on 02/12/25. Instructions: Resume on 02/12/25. Ok to resume warfarin tonight Nursing Note INR: 3.1 out of therapeutic range of 2-3 Medications and supplements reviewed Patient status: feels well Medications or supplements: no changes Diet: usual diet for pt Denies any signs and symptoms of bleeding or clotting or unusual bruising Bleeding, bruising, clotting discussed Nutritional guidance given: to have a serving of greens today Dose: 5mg X 6 days and 7.5mg X 1 day (Sun) F/U INR Date: 2 weeks Patient verbalizing understanding of instructions given. 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
--- OUTSIDE RECORDS SUMMARY | 2025-05-03 09:32 | XMS_ITS | Patient Health Record ---
Author Organization [facility] Address [address] [place] [address] Care Team Providers Care Macaroni Press Operator Name Role Phone Manuel Merrill MD Primary Care Provider Kaleb Barrera Unavailable [phone] Allergies Allergen (clinical drug ingredient) Drug/Non Drug [...] times a day as needed for abdominal pain/bloating/cramps; Duration: 30 day(s) 07/29/2015 Active ProAir HFA 108 [...] Problem Status W/U Status Risk Notes Problem Irritable bowel syndrome (72796069) Irritable bowel syndrome without diarrhea (K58.9) Active confirmed Problem Abdominal pain (50506199) Abdominal pain, diffuse (R10.9) Active confirmed Plan Of Treatment Future Test Test Name Order Date UPPER GI ENDOSCOPY 04/21/2012 Insurance Providers Payer Name Payer Address Payer Phone Subscriber Number Group Number Insured Name Patient Relationship to Insured Coverage Start Date Coverage End Date MEDICARE OF [place] [address] [place] [address] [phone] [id number] MELVIN SMITH Self - patient is the insured MEDICAID OF [employer] [address] [place] [phone] [id number] MELVIN SMITH Self - patient is the insured Medical (General) History Medical History History ICD Code colonoscopy 08-20-2009--only a hyperplasti c polyp gastric ulcer/gastritis on E GD with Dr. Shaw in 1995, with H.pylori-s/p Rx with antibiotics irritable bowel syndrome fibromyalgia mitral valve prolapse COPD Denies [place],DM,CVA,renal disease Kidney stone, s/p ESWL Pancreatitis, ? due to gallstones Interstitial cystitis EGD in 05/2012 neg except fo r a HH--biopsies were negative for eosinophilic esophagitis Sees Dr. Kasper from ENT for the swallow ing issues as well--had a neg w/u Describes a normal U/S of th e abdomen at [facility]; had a normal UGI in 03/2013 and normal CBC and LFT's Surgical History Surgery Date(Month/Year) removal of fibroids ovarian cysts bladder suspension [facility] Appy Benign breast biopsy
== END 2025-05-03 09:17 | disposition home or self-care (01) ==
LOC: HO.ACS 08:56
PROVIDERS: PCP Internal Medicine; Visit Provider Internal Medicine Medical Oncology
DX: Z79.01 Long term (current) use of anticoagulants (principal)

== ENCOUNTER → 2025-05-03 08:56 | Outpatient (BNVA) | payer MEDICARE, MEDICAID, SELFPAY | PROVIDERS: PCP Internal Medicine; Visit Provider Internal Medicine Medical Oncology | DX: Z86.73 Personal history of transient ischemic attack (TIA), and cerebral infarction without residual deficits (principal); Z51.81 Encounter for therapeutic drug level monitoring; Z79.01 Long term (current) use of anticoagulants | CPT/HCPCS: 85610; 99211 ==

== ENCOUNTER 2025-05-13 10:48 | Outpatient (AMB) | payer MEDICARE, MEDICAID, SELFPAY ==
[2025-05-13 10:53] VITALS: BP 108/62; PULSE 88; BMI 22.7
--- NOTE | 2025-05-13 10:53 | A.OFFVIS_ITS ---
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 Required: No Allergies vancomycin (VANCOMYCIN) Allergy (Intermediate, Verified 05/03/25 08:57) ITCHING/RASH metoclopramide (From Reglan) Adverse Reaction (Intermediate, Verified 05/03/25 08:57) Nausea and Vomiting Medication List - Last Reconciled 05/13/25 by Raad Chisholm MD albuterol sulfate 90 mcg/actuation 2 puffs inhalation Q4H PRN albuterol sulfate 2.5 mg inhalation Q8H PRN amlodipine 5 mg PO DAILY atorvastatin 40 mg PO DAILY blood sugar diagnostic As directed cholecalciferol (vitamin D3) 25 mcg PO DAILY cyanocobalamin (vitamin B-12) PO diclofenac sodium 1% topical ezetimibe 10 mg PO DAILY famotidine 20 mg PO BEDTIME food supplemt, lactose-reduced (Boost) PO hydrocortisone 2.5% appl topical lancets As directed magnesium oxide 400 mg PO DAILY metoprolol succinate ER 50 mg PO DAILY 90 days ondansetron HCl 8 mg PO Q12H PRN oxcarbazepine 150 mg PO BID oxycodone 5 mg PO BEDTIME PRN pramipexole 1 mg PO tirzepatide (Mounjaro) mg subcut umeclidinium-vilanterol 62.5-25 mcg/actuation (Anoro Ellipta) inhalation DAILY warfarin 5 mg See Protocol PO DIRECTED Held on 02/12/25. Instructions: Resume on 02/12/25. Ok to resume warfarin tonight HPI Comments Details: Diane comes for follow-up. She says she has lost a lot of weight on Mounjaro. She says she has poor appetite since increased on medicines. Patient complains of constant fluttering and also rapid heart rate. Pacer telemetry does not show any significant arrhythmias except for rare PVCs. Patient takes all her medications. Has been noticing low blood pressure. She says she drinks about 40 oz of water a day. She has not had any significant lightheadedness or loss of consciousness. She is very sedentary says feels very tired. Her most recent LDL was 68 mg/dL. [facility] Medical History Coronary artery calcification seen on CAT scan History of colon polyps (~2009) Type II diabetes mellitus, well controlled Personal history of nicotine dependence Factor 5 Leiden mutation, heterozygous Obstructive sleep apnea on CPAP (~2008) Osteopenia (~2018) Pacemaker (~2021) History of CVA (cerebrovascular accident) (~2019) Hyperlipidemia PFO (patent foramen ovale) (~2019) HTN (hypertension) COPD (chronic obstructive pulmonary disease) Current use of anticoagulant therapy (~2019) Surgical History Stented coronary artery S/P cardiac cath Hx of cystoscopy Hx of blepharoplasty History of esophagogastroduodenoscopy (EGD) History of colonoscopy History of unilateral oophorectomy History of cholecystectomy (~2000) History of bladder surgery (~1999) History of pacemaker (~2021) Family History Mother Stroke Multiple sclerosis Diabetes Father CAD (coronary artery disease) Social History Alcohol intake: never Patient Tobacco Use Status: Current everyday Tobacco user Tobacco use type: Cigarette Cigarettes Per Day: 3 Years Smoked: 40 +/- e-Cigarette/Vaping Use: Currently Using service: No Current occupational status: retired Review of Systems Const Denies chills, Denies fatigue, Denies fever(s), Denies frequent falls, Denies weakness, Denies weight gain and Denies weight loss ENT Denies dizziness Card Reports chest pain, Denies leg edema, Denies lightheadedness, Reports palpitations, Denies dyspnea, Denies dyspnea on exertion, Denies orthopnea and Denies other (loss of consciousness) Resp Denies cough, Denies dyspnea and Denies dyspnea on exertion GI Denies hematochezia and Denies change in stool character Musc Denies abnormal gait, Denies muscle weakness, Denies numbness, Denies radiating pain into limb and Denies tingling Neuro Denies abnormal gait, Denies dizziness, Denies frequent falls, Denies numbness, Denies tingling and Denies weakness Endo Denies fatigue and Reports palpitations Physical Exam Vital Signs: Last Vital Signs Pulse 88 05/13/25 10:53 BP 108/62 05/13/25 10:53 BMI result Body Mass Index 22.7 Const General: cooperative, healthy appearing, comfortable and no acute distress Orientation/consciousness: patient oriented x3 Resp Effort & Inspection: normal respiratory effort Auscultation: clear to auscultation bilaterally, no crackles, no rales, no rhonchi and no wheezes Cardio Rate: regular rate Rhythm: regular rhythm Heart sounds: S1 normal heart sound present, S2 normal heart sound present, no gallops, no murmurs and no rubs Neuro General: patient oriented x3 Extrem General: Yes normal to inspection, No no pedal edema and No calf tenderness Psych Appearance: grossly normal Mental Status: mental status grossly normal Speech and movement: Normal speech and movement present Office Procedures Cardiac Device Check Cardiac Device Check Details: Dual-chamber Medtronic pacemaker in place. Programmed in MVP mode at 60 beats per minute. Atrial pacing 1.8% of time. Rare PVCs noted without any sustained arrhythmias. Atrial ventricular pacing thresholds excellent and reprogrammed to enhance battery life. Atrial ventricular sensing is adequate. Pacing lead impedance is stable. Battery life is at about 12 years 57801-[id number] Cardiac Device Check, pacemaker dual lead Procedure code (CPT) selection complete Assessment & Plan Assessment & Plan (1) CAD (coronary artery disease): Code(s): I25.10 - Atherosclerotic heart disease of [place] coronary artery without angina pectoris Category: Medical Plan: CAD with prior RCA stenting. Currently not having any symptoms suggestive of angina. At this point time will continue warfarin therapy to target INR between 2 and 3. Avoid antiplatelet therapy to reduce bleeding risk. Continue high- intensity atorvastatin as well as ezetimibe therapy with LDL well optimized at 68 mg/dL. Encouraged to increase activity level to overall improved functionality and mcc prognosis. (2) Cardiac pacemaker in situ: Code(s): Z95.0 - Presence of cardiac pacemaker Category: Medical Plan: Cardiac pacemaker in-situ for sinus pauses. Pacemaker is working well. Reprogrammed for adequate functioning. Will follow remotely every 3 months. Follow up in the clinic in 1 year's time. (3) Palpitations: Code(s): R00.2 - Palpitations Plan: Patient having constant symptoms of palpitation which are not related to her cardiac arrhythmias. Probably related to anxiety. She does have isolated PVC but infrequent episodes on pacer telemetry. Continue current metoprolol therapy avoidance of stimulants was discussed. Stress mitigation strategies were discussed. (4) Low blood pressure: Code(s): I95.9 - Hypotension, unspecified Plan: Low blood pressure probably over correction because of significant loss of weight. Will reduce amlodipine to 2.5 mg daily. Advised to increase fluid intake. Orthostatic precautions were discussed. If her blood pressure continuously remains low then can discontinue amlodipine therapy. Advised to also not have significant weight loss which may overall affect her poorly in terms of musculoskeletal health. Will follow up in the clinic in 1 year's time, sooner PRN. Thank you for allowing me to partake in her care Medications: New amlodipine 2.5 mg PO DAILY 30 tabs 3RF Discontinued amlodipine Discontinued Reason: Doctor's Order 5 mg PO DAILY 90 tabs 3RF Coding Level of Care Code Est Pt Level 4 (75387) Complex EM visit Add On G2211 Diagnoses CAD (coronary artery disease) I25.10 Cardiac pacemaker in situ Z95.0 Palpitations R00.2 Low blood pressure I95.9 CPT Codes Cardiac Device Check - Cardiac Device 2: [id number] Cardiac Device Check, pacemaker dual lead ([id number])
--- OUTSIDE RECORDS SUMMARY | 2025-05-13 13:22 | XMS_ITS | Patient Health Record ---
Author Organization [facility] Address [address] [place] [address] Care Team Providers Care Parking Lot Spotter Name Role Phone Manuel Merrill MD Primary Care Provider Kaleb Barrera Unavailable [phone] Allergies Allergen (clinical drug ingredient) Drug/Non Drug [...] Status Risk Notes Problem Irritable bowel syndrome (04816274) Irritable bowel syndrome without diarrhea (K58.9) Active confirmed Problem Abdominal pain (35268406) Abdominal pain, diffuse (R10.9) Active confirmed Plan Of Treatment Future Test Test Name Order Date UPPER GI ENDOSCOPY 04/21/2012 Insurance Providers Payer Name Payer Address Payer Phone Subscriber Number Group Number Insured Name Patient Relationship to Insured Coverage Start Date Coverage End Date MED[place]ARE [place] [address] [place] [address] [id number] MELVIN SMITH Self - patient is the insured MEDICAID OF [employer] [address] [place] [id number] [id number] MELVIN SMITH Self - patient is the insured Medical (General) History Medical History History ICD Code colonoscopy 08-20-2009--only a hyperplasti c polyp gastric ulcer/gastritis on E GD with Dr. Shaw in 1995, with H.pylori-s/p Rx with antibiotics irritable bowel syndrome fibromyalgia mitral valve prolapse COPD Denies [place],DM,CVA,renal disease Kidney stone, s/p ESWL Pancreatitis, ? due to gallstones Interstitial cystitis EGD in 05/2012 neg except fo r a HH--biopsies were negative for eosinophilic esophagitis Sees Dr. Kasper from ENT for the swallow ing issues as well--had a neg w/u Describes a normal U/S of th e abdomen at [facility]; had a normal UGI in 03/2013 and normal CBC and LFT's Surgical History Surgery Date(Month/Year) removal of fibroids ovarian cysts bladder suspension [facility] Benign breast biopsy
== END 2025-05-13 11:15 | disposition home or self-care (01) ==
LOC: HO.HCS 10:49
PROVIDERS: PCP Internal Medicine; Visit Provider Internal Medicine Cardiovascular Disease
DX: I25.10 Atherosclerotic heart disease of native coronary artery without angina pectoris (principal); Z95.0 Presence of cardiac pacemaker; R00.2 Palpitations; I95.9 Hypotension, unspecified
CPT/HCPCS: 93280; 99214; G2211

== ENCOUNTER → 2025-05-13 10:48 | Outpatient (BNVA) | payer MEDICARE, MEDICAID, SELFPAY | PROVIDERS: PCP Internal Medicine; Visit Provider Internal Medicine Cardiovascular Disease | DX: R00.2 Palpitations (principal); I95.9 Hypotension, unspecified; Z95.0 Presence of cardiac pacemaker; I25.10 Atherosclerotic heart disease of native coronary artery without angina pectoris; Z95.5 Presence of coronary angioplasty implant and graft; Z79.01 Long term (current) use of anticoagulants; Z72.0 Tobacco use | CPT/HCPCS: 93280; 99212 ==

== ENCOUNTER → 2025-05-17 09:02 | Outpatient (BNVA) | payer MEDICARE, MEDICAID, SELFPAY | PROVIDERS: PCP Internal Medicine; Visit Provider Internal Medicine Medical Oncology | DX: Z51.81 Encounter for therapeutic drug level monitoring (principal); Z79.01 Long term (current) use of anticoagulants | CPT/HCPCS: 85610; 99211 ==

== ENCOUNTER 2025-05-31 09:06 | Outpatient (AMB) | payer MEDICARE, MEDICAID, SELFPAY ==
[2025-05-31 09:13] LABS: Prothrombin Time Whole Bld POC 28.4 sec (11.1-13.5); ~PT, ~INR - Anti Coag Clinic 2.4 (0.9-1.1)
--- NOTE | 2025-05-31 09:15 | MHC.OFFVISCO ---
Intake Intake Visit Reasons: Anticoagulation Allergies vancomycin (VANCOMYCIN) Allergy (Intermediate, Verified 05/31/25 09:07) ITCHING/RASH metoclopramide (From Reglan) Adverse Reaction (Intermediate, Verified 05/31/25 09:07) Nausea and Vomiting Medication List - Last Reconciled 05/31/25 by Catherine Bales, RN albuterol sulfate 90 mcg/actuation 2 puffs inhalation Q4H PRN albuterol sulfate 2.5 mg inhalation Q8H PRN amlodipine 2.5 mg PO DAILY atorvastatin 40 mg PO DAILY blood sugar diagnostic As directed cholecalciferol (vitamin D3) 25 mcg PO DAILY cyanocobalamin (vitamin B-12) PO diclofenac sodium 1% topical ezetimibe 10 mg PO DAILY famotidine 20 mg PO BEDTIME food supplemt, lactose-reduced (Boost) PO hydrocortisone 2.5% appl topical lancets As directed magnesium oxide 400 mg PO DAILY metoprolol succinate ER 50 mg PO DAILY 90 days ondansetron HCl 8 mg PO Q12H PRN oxcarbazepine 150 mg PO BID oxycodone 5 mg PO BEDTIME PRN pramipexole 1 mg PO tirzepatide (Mounjaro) mg subcut umeclidinium-vilanterol 62.5-25 mcg/actuation (Anoro Ellipta) inhalation DAILY warfarin 5 mg See Protocol PO DIRECTED Held on 02/12/25. Instructions: Resume on 02/12/25. Ok to resume warfarin tonight Nursing Note INR: 2.4 in therapeutic range of 2-3 Medications and supplements reviewed No changes in health, diet, medications, or supplements, Denies any signs and symptoms of bleeding or bruising or clotting. Bleeding, bruising, clotting discussed Nutritional guidance given Dose: 5mg daily F/U INR: 2 weeks Patient verbalizes understanding of instructions given Anti-Coag Initial Assessment Social Hx Patient Tobacco Use Status: Current everyday Tobacco user Tobacco use type: Cigarette alcohol intake: never Coding Level of Care Code Est Patient Level 1 Diagnoses Current use of anticoagulant therapy Z79.01 Assessment & Plan Assessment & Plan (1) Current use of anticoagulant therapy: Onset Date: ~2019 Comment: (due to Stroke with PFO and factor 5 leiden) Code(s): Z79.01 - detention (current) use of anticoagulants Category: Medical
--- OUTSIDE RECORDS SUMMARY | 2025-05-31 09:41 | XMS_ITS | Patient Health Record ---
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 Name Role Phone Manuel Merrill MD Primary Care Provider Kaleb Barrera Unavailable [phone] Allergies Allergen (clinical drug ingredient) Drug/Non Drug [...] Status Risk Notes Problem Irritable bowel syndrome (78203327) Irritable bowel syndrome without diarrhea (K58.9) Active confirmed Problem Abdominal pain (06666398) Abdominal pain, diffuse (R10.9) Active confirmed Plan Of Treatment Future Test Test Name Order Date UPPER GI ENDOSCOPY 04/21/2012 Insurance Providers Payer Name Payer Address Payer Phone Subscriber Number Group Number Insured Name Patient Relationship to Insured Coverage Start Date Coverage End Date [place]ARE OF [place] [address] [place] [address] [phone] [id number] MELVIN SMITH Self - patient is the insured MEDICAID OF [place] [address] [place] [phone] [id number] MELVIN SMITH Self - patient is the insured Medical (General) History Medical History History ICD Code colonoscopy 08-20-2009--only a hyperplasti c polyp gastric ulcer/gastritis on E GD with Dr. Shaw in 1995, with H.pylori-s/p Rx with antibiotics irritable bowel syndrome fibromyalgia mitral valve prolapse COPD Denies [place],DM,CVA,renal disease Kidney stone, s/p ESWL Pancreatitis, ? due to gallstones Interstitial cystitis EGD in 05/2012 neg except fo r a HH--biopsies were negative for eosinophilic esophagitis Sees Dr. Kasper from ENT for the swallow ing issues as well--had a neg w/u Describes a normal U/S of th e abdomen at [facility]; had a normal UGI in 03/2013 and normal CBC and LFT's Surgical History Surgery Date(Month/Year) removal of fibroids ovarian cysts bladder suspension [facility] Benign breast biopsy
== END 2025-05-31 09:17 | disposition home or self-care (01) ==
LOC: HO.ACS 09:06
PROVIDERS: PCP Internal Medicine; Visit Provider Internal Medicine Medical Oncology
DX: Z79.01 Long term (current) use of anticoagulants (principal)

== ENCOUNTER → 2025-05-31 09:06 | Outpatient (BNVA) | payer MEDICARE, MEDICAID, SELFPAY | PROVIDERS: PCP Internal Medicine; Visit Provider Internal Medicine Medical Oncology | DX: I69.90 Unspecified sequelae of unspecified cerebrovascular disease (principal); Z51.81 Encounter for therapeutic drug level monitoring; Z79.01 Long term (current) use of anticoagulants | CPT/HCPCS: 85610; 99211 ==

== ENCOUNTER → 2025-06-06 12:38 | Outpatient (BNV) | payer MEDICARE, MEDICAID, SELFPAY | PROVIDERS: PCP Internal Medicine | DX: Z45.018 Encounter for adjustment and management of other part of cardiac pacemaker (principal) | CPT/HCPCS: 93294 ==

== ENCOUNTER 2025-06-17 09:10 | Outpatient (AMB) | payer MEDICARE, MEDICAID, SELFPAY ==
[2025-06-17 09:15] LABS: Prothrombin Time Whole Bld POC 32.7 sec (11.1-13.5); ~PT, ~INR - Anti Coag Clinic 2.7 (0.9-1.1)
--- NOTE | 2025-06-17 09:20 | MHC.OFFVISCO ---
Intake Intake Visit Reasons: Anticoagulation Allergies vancomycin (VANCOMYCIN) Allergy (Intermediate, Verified 06/17/25 09:11) ITCHING/RASH metoclopramide (From Reglan) Adverse Reaction (Intermediate, Verified 06/17/25 09:11) Nausea and Vomiting Medication List - Last Reconciled 06/17/25 by Catherine Bales RN albuterol sulfate 90 mcg/actuation 2 puffs inhalation Q4H PRN albuterol sulfate 2.5 mg inhalation Q8H PRN amlodipine 2.5 mg PO DAILY atorvastatin 40 mg PO DAILY blood sugar diagnostic As directed cholecalciferol (vitamin D3) 25 mcg PO DAILY cyanocobalamin (vitamin B-12) PO diclofenac sodium 1% topical ezetimibe 10 mg PO DAILY famotidine 20 mg PO BEDTIME food supplemt, lactose-reduced (Boost) PO hydrocortisone 2.5% appl topical lancets As directed magnesium oxide 400 mg PO DAILY metoprolol succinate ER 50 mg PO DAILY 90 days ondansetron HCl 8 mg PO Q12H PRN oxcarbazepine 150 mg PO BID oxycodone 5 mg PO BEDTIME PRN pramipexole 1 mg PO tirzepatide (Mounjaro) mg subcut umeclidinium-vilanterol 62.5-25 mcg/actuation (Anoro Ellipta) inhalation DAILY warfarin 5 mg See Protocol PO DIRECTED Held on 02/12/25. Instructions: Resume on 02/12/25. Ok to resume warfarin tonight Nursing Note INR: 2.7 in therapeutic range of 2-3 Medications and supplements reviewed No changes in health, diet, medications, or supplements, Denies any signs and symptoms of bleeding or bruising or clotting. Bleeding, bruising, clotting discussed Nutritional guidance given Dose: 5mg daily F/U INR: 2 weeks Patient verbalizes understanding of instructions given Anti-Coag Initial Assessment Social Hx Patient Tobacco Use Status: Current everyday Tobacco user Tobacco use type: Cigarette alcohol intake: never Coding Level of Care Code Est Patient Level 1 Diagnoses Current use of anticoagulant therapy Z79.01 Results AMB INR Fingerstick AMB INR Fingerstick 2.7 Last Edit by Catherine Bales RN on 06/17/25 09:19 interface delay Assessment & Plan Assessment & Plan (1) Current use of anticoagulant therapy: Onset Date: ~2019 Comment: (due to Stroke with PFO and factor 5 leiden) Code(s): Z79.01 - [facility] (current) use of anticoagulants Category: Medical
== END 2025-06-17 09:27 | disposition home or self-care (01) ==
LOC: HO.ACS 09:10
PROVIDERS: PCP Internal Medicine; Visit Provider Internal Medicine Medical Oncology
DX: Z79.01 Long term (current) use of anticoagulants (principal)

== ENCOUNTER → 2025-06-17 09:10 | Outpatient (BNVA) | payer MEDICARE, MEDICAID, SELFPAY | PROVIDERS: PCP Internal Medicine; Visit Provider Internal Medicine Medical Oncology | DX: Z86.73 Personal history of transient ischemic attack (TIA), and cerebral infarction without residual deficits (principal); Z51.81 Encounter for therapeutic drug level monitoring; Z79.01 Long term (current) use of anticoagulants | CPT/HCPCS: 85610; 99211 ==

== ENCOUNTER 2025-07-01 09:02 | Outpatient (AMB) | payer MEDICARE, MEDICAID, SELFPAY ==
[2025-07-01 09:15] LABS: Prothrombin Time Whole Bld POC 33.9 sec (11.1-13.5); ~PT, ~INR - Anti Coag Clinic 2.8 (0.9-1.1)
--- NOTE | 2025-07-01 09:17 | MHC.OFFVISCO ---
Intake Intake Visit Reasons: Anticoagulation Allergies vancomycin (VANCOMYCIN) Allergy (Intermediate, Verified 07/01/25 09:09) ITCHING/RASH metoclopramide (From Reglan) Adverse Reaction (Intermediate, Verified 07/01/25 09:09) Nausea and Vomiting Medication List - Last Reconciled 07/01/25 by Catherine Bales, RN albuterol sulfate 90 mcg/actuation 2 puffs inhalation Q4H PRN albuterol sulfate 2.5 mg inhalation Q8H PRN amlodipine 2.5 mg PO DAILY atorvastatin 40 mg PO DAILY blood sugar diagnostic As directed cholecalciferol (vitamin D3) 25 mcg PO DAILY cyanocobalamin (vitamin B-12) PO diclofenac sodium 1% topical ezetimibe 10 mg PO DAILY famotidine 20 mg PO BEDTIME food supplemt, lactose-reduced (Boost) PO hydrocortisone 2.5% appl topical lancets As directed magnesium oxide 400 mg PO DAILY metoprolol succinate ER 50 mg PO DAILY 90 days ondansetron HCl 8 mg PO Q12H PRN oxcarbazepine 150 mg PO BID oxycodone 5 mg PO BEDTIME PRN pramipexole 1 mg PO tirzepatide (Mounjaro) mg subcut umeclidinium-vilanterol 62.5-25 mcg/actuation (Anoro Ellipta) inhalation DAILY warfarin 5 mg See Protocol PO DIRECTED Held on 02/12/25. Instructions: Resume on 02/12/25. Ok to resume warfarin tonight Nursing Note INR: 2.8 in therapeutic range 2-3 Medications and supplements reviewed No changes in health, diet, medications, or supplements, Denies any signs and symptoms of bleeding or bruising or clotting. Bleeding, bruising, clotting discussed Nutritional guidance given Dose: 5mg daily F/U INR: 2 weeks Patient verbalizes understanding of instructions given Anti-Coag Initial Assessment Social Hx Patient Tobacco Use Status: Current everyday Tobacco user Tobacco use type: Cigarette alcohol intake: never Coding Level of Care Code Est Patient Level 1 Diagnoses Current use of anticoagulant therapy Z79.01 Assessment & Plan Assessment & Plan (1) Current use of anticoagulant therapy: Onset Date: ~2019 Comment: (due to Stroke with PFO and factor 5 leiden) Code(s): Z79.01 - shelter (current) use of anticoagulants Category: Medical
== END 2025-07-01 09:24 | disposition home or self-care (01) ==
LOC: HO.ACS 09:02
PROVIDERS: PCP Internal Medicine; Visit Provider Internal Medicine Medical Oncology
DX: Z79.01 Long term (current) use of anticoagulants (principal)

== ENCOUNTER → 2025-07-01 09:02 | Outpatient (BNVA) | payer MEDICARE, MEDICAID, SELFPAY | PROVIDERS: PCP Internal Medicine; Visit Provider Internal Medicine Medical Oncology | DX: Z79.01 Long term (current) use of anticoagulants (principal) | CPT/HCPCS: 85610; 99211 ==

== ENCOUNTER 2025-07-15 09:21 | Outpatient (AMB) | payer MEDICARE, MEDICAID, SELFPAY ==
[2025-07-15 09:35] LABS: Prothrombin Time Whole Bld POC 32.7 sec (11.1-13.5); ~PT, ~INR - Anti Coag Clinic 2.7 (0.9-1.1)
--- NOTE | 2025-07-15 09:39 | MHC.OFFVISCO ---
Intake Intake Visit Reasons: Anticoagulation Allergies vancomycin (VANCOMYCIN) Allergy (Intermediate, Verified 07/15/25 09:24) ITCHING/RASH metoclopramide (From Reglan) Adverse Reaction (Intermediate, Verified 07/15/25 09:24) Nausea and Vomiting Medication List - Last Reconciled 07/15/25 by Catherine Bales, RN albuterol sulfate 90 mcg/actuation 2 puffs inhalation Q4H PRN albuterol sulfate 2.5 mg inhalation Q8H PRN amlodipine 2.5 mg PO DAILY atorvastatin 40 mg PO DAILY blood sugar diagnostic As directed cholecalciferol (vitamin D3) 25 mcg PO DAILY cyanocobalamin (vitamin B-12) PO diclofenac sodium 1% topical ezetimibe 10 mg PO DAILY famotidine 20 mg PO BEDTIME food supplemt, lactose-reduced (Boost) PO hydrocortisone 2.5% appl topical lancets As directed magnesium oxide 400 mg PO DAILY metoprolol succinate ER 50 mg PO DAILY 90 days montelukast 10 mg PO QPM ondansetron HCl 8 mg PO Q12H PRN oxcarbazepine 150 mg PO BID oxycodone 5 mg PO BEDTIME PRN pramipexole 1 mg PO tirzepatide (Mounjaro) mg subcut umeclidinium-vilanterol 62.5-25 mcg/actuation (Anoro Ellipta) inhalation DAILY warfarin 5 mg See Protocol PO DIRECTED Held on 02/12/25. Instructions: Resume on 02/12/25. Ok to resume warfarin tonight Nursing Note INR: 2.7 in therapeutic range of 2-3 Medications and supplements reviewed. Pt will be starting montelukast today which may result in reduced INR per [employer]. No changes in health, diet, or supplements, Denies any signs and symptoms of bleeding or bruising or clotting. Bleeding, bruising, clotting discussed Nutritional guidance given to have an extra serving of foods that can raise the INR. Food list reviewed. Dose: 5mg daily but will increase 1 days dose to 7.5mg (Thurs) F/U INR: 1 week Patient verbalizes understanding of instructions with read back given Anti-Coag Initial Assessment Social Hx Patient Tobacco Use Status: Current everyday Tobacco user Tobacco use type: Cigarette alcohol intake: never Coding Level of Care Code Est Patient Level 1 Diagnoses Current use of anticoagulant therapy Z79.01 Results AMB INR Fingerstick AMB INR Fingerstick 2.7 Last Edit by Catherine Bales RN on 07/15/25 09:38 interface delay Assessment & Plan Assessment & Plan (1) Current use of anticoagulant therapy: Onset Date: ~2019 Comment: (due to Stroke with PFO and factor 5 leiden) Code(s): Z79.01 - ocean transportation intermediary (current) use of anticoagulants Category: Medical
--- OUTSIDE RECORDS SUMMARY | 2025-07-15 09:44 | XMS_ITS | Patient Health Record ---
Author Organization [facility] Address [address] [place] [address] Care Team Providers Care Analysis Director Name Role Phone Manuel Merrill MD Primary Care Provider Kaleb Barrera Unavailable [phone] Allergies Allergen (clinical drug ingredient) Drug/Non Drug Allergy documented on EMR Reaction Allergy Type Onset Date Status metoclopramide Reglan Unknown Drug Allergy Ac tive vancomycin Vancomycin HCl Unknown Drug Allergy A ctive Reason For Referral No Information Medications Medication SIG (Take, Route, Frequency, Duration) Notes Start Date End Date Status Dicyclomine HCl 10 MG Capsule 1-2 capsules Orally Four times a day as needed for abdominal pain/bloating/cramps; Duration: 30 day(s) 07/29/2015 Active ProAir HFA 108 (90 Base) MCG/ACT Aerosol Solution 2 puffs as needed Inhalation prn Active Simvastatin 40 MG Tablet 1 tablet in the evening Orally Once a day Active Advair Diskus 250-50 MCG/DOSE Aerosol Powder Breath Activated 1 puff Inhalation prn Ac tive rOPINIRole HCl 2 MG Tablet 1 tablet Oral ly Once a day Active HYDROcodone-Acetaminophen 500mg Tablet 1 tablet as needed Orally prn Active Prilosec 20 MG Capsule Delayed Release 1 capsule Orally Once a day Active Gabapentin 100 MG Capsule 1 tablet Orally qd Active Montelukast Sodium 10 MG Tablet 1 tablet in the evening Orally Once a day Active Vitamin D3 Super Strength 2000 UNIT Tablet 1 Orally qd Active Spiriva HandiHaler 18 MCG Capsule 1 capsule Inhalation Once a day Active Immunizations Vaccine Route Administration Date Status Comme nts Flu vaccine no Preserv 3 and > Unknown 06/03/2015 Admin istered Social History Social History Additional Details Category Social Info Options Details Miscellaneous: Marital status: single Occupation: unemployed Section Notes: Smoker; social drinker 1x pe r week Smoker; social drinker 1x pe r week Smoker; social drinker 1x pe r week Problems Problem Type SNOMED Code ICD Code Onset Dates Problem Status W/U Status Risk Notes Problem Irritable bowel syndrome (79222123) Irritable bowel syndrome without diarrhea (K58.9) Active confirmed Problem Abdominal pain (33394532) Abdominal pain, diffuse (R10.9) Active confirmed Plan Of Treatment Future Test Test Name Order Date UPPER GI ENDOSCOPY 04/21/2012 Insurance Providers Payer Name Payer Address Payer Phone Subscriber Number Group Number Insured Name Patient Relationship to Insured Coverage Start Date Coverage End Date MEDICARE OF [place] [address] [place] [id number] MELVIN SMITH Self - patient is the insured [facility] [address] [place] [phone] [id number] MELVIN SMITH Self - patient is the insured Medical (General) History Medical History History ICD Code colonoscopy 08-20-2009--only a hyperplasti c polyp gastric ulcer/gastritis on E GD with Dr. Shaw in 1995, with H.pylori-s/p Rx with antibiotics irritable bowel syndrome fibromyalgia mitral valve prolapse COPD Denies [place],DM,CVA,renal disease Kidney stone, s/p ESWL Pancreatitis, ? due to gallstones Interstitial cystitis EGD in 05/2012 neg except fo r a HH--biopsies were negative for eosinophilic esophagitis Sees Dr. Kasper from ENT for the swallow ing issues as well--had a neg w/u Describes a normal U/S of th e abdomen at [facility]; had a normal UGI in 03/2013 and normal CBC and LFT's Surgical History Surgery Date(Month/Year) removal of fibroids ovarian cysts bladder suspension [facility] Appy Benign breast biopsy
== END 2025-07-15 09:50 | disposition home or self-care (01) ==
LOC: HO.ACS 09:21
PROVIDERS: PCP Internal Medicine; Visit Provider Internal Medicine Medical Oncology
DX: Z79.01 Long term (current) use of anticoagulants (principal)

== ENCOUNTER → 2025-07-15 09:21 | Outpatient (BNVA) | payer MEDICARE, MEDICAID, SELFPAY | PROVIDERS: PCP Internal Medicine; Visit Provider Internal Medicine Medical Oncology | DX: Z86.73 Personal history of transient ischemic attack (TIA), and cerebral infarction without residual deficits (principal); Z51.81 Encounter for therapeutic drug level monitoring; Z79.01 Long term (current) use of anticoagulants | CPT/HCPCS: 85610; 99211 ==